=== PATIENT | male | born 1935 | race Caucasian/White ===

== ENCOUNTER → 2016-05-08 | Outpatient (CLI) | payer BC ==
[~2016-05-08] MED LIST: ASPEC325 PO; CALCTAB5 PO; CHOL100010 PO; CLC100 PO; LISI-461 PO; METO1TAB69 PO; MULT-506 PO; OMEG10007; SIMV20TA2 PO
[2016-05-08 08:27] LABS: BASO % 0.5 %; BASO ABS # 0.03 K/uL (0-0.2); COMPLETE YES; EOS % 3.5 %; HEMATOCRIT 42.1 % (42-52); IG% 0.3 %; LYMPH % 26.4 %; LYMPH ABS # 1.51 K/uL (1.2-3.4); MEAN CELL VOLUME 93.6 fL (80-100); MEAN CORPUSCULAR HEMOGLOBIN 32.2 pg (25-34); MEAN CORPUSCULAR HGB CONC 34.4 g/dl (32-36); MEAN PLATELET VOLUME 10.8 fL (7.4-10.4); MONO % 12.6 %; NEUT % 56.7 %; PLATELET COUNT 151 K/uL (130-400); WHITE BLOOD COUNT 5.73 K/uL (4.8-10.8)
[2016-05-08 08:59] LABS: ALT/SGPT 22 U/L (12-78); AST/SGOT 18 U/L (15-37); BLOOD UREA NITROGEN 19 mg/dl (7-18); BUN/CREATININE RATIO 14.6 (10-20); CALCIUM 8.9 mg/dl (8.5-10.1); CARBON DIOXIDE 31 mmol/L (21-32); CHLORIDE 105 mmol/L (98-107); CHOLESTEROL 122 mg/dl (0-200); GLUCOSE 96 mg/dl (70-99); POTASSIUM 4.3 mmol/L (3.5-5.1); SODIUM 143 mmol/L (136-145); TRIGLYCERIDES 106 mg/dl (0-150); VERY LOW DENSITY LIPOPROT CALC 21 mg/dl
[2016-05-08 09:09] LABS: ALB/GLOB RATIO 1.1 (0.9-2); ALKALINE PHOSPHATASE 54 U/L (45-117); CHOLESTEROL/HDL RATIO 3.5; HDL CHOLESTEROL 35 mg/dl; LDL CHOLESTEROL CALCULATED 66 mg/dl
== END | disposition home or self-care (01) ==
LOC: C.LAB1850 06:55
PROVIDERS: ATTEND Internal Medicine
DX: E03.9 Hypothyroidism, unspecified (principal)

== ENCOUNTER → 2016-06-18 | Outpatient (CLI) | payer BC | END | disposition home or self-care (01) | LOC: C.LAB 12:44 | PROVIDERS: ATTEND Internal Medicine | DX: E03.9 Hypothyroidism, unspecified (principal) ==

== ENCOUNTER → 2016-11-27 | Outpatient (CLI) | payer BC ==
[2016-11-27 08:14] LABS: BASO % 0.5 %; BASO ABS # 0.03 K/uL (0-0.2); COMPLETE YES; HEMATOCRIT 42.6 % (42-52); IG% 0.4 %; LYMPH % 34.4 %; LYMPH ABS # 1.96 K/uL (1.2-3.4); MEAN CELL VOLUME 94.9 fL (80-100); MEAN CORPUSCULAR HEMOGLOBIN 32.3 pg (25-34); MEAN PLATELET VOLUME 10.6 fL (7.4-10.4); MONO % 11.1 %; NEUT % 49.6 %; PLATELET COUNT 173 K/uL (130-400); RED BLOOD COUNT 4.49 M/uL (4.7-6.1)
[2016-11-27 08:43] LABS: ESTIMATED AVERAGE GLUCOSE 131 mg/dl; HA1C FLAG Normal (Normal)
[2016-11-27 08:51] LABS: ALT/SGPT 20 U/L (12-78); BLOOD UREA NITROGEN 22 mg/dl (7-18); BUN/CREATININE RATIO 18.4 (10-20); CARBON DIOXIDE 31 mmol/L (21-32); CHLORIDE 106 mmol/L (98-107); CHOLESTEROL 114 mg/dl (0-200); GLUCOSE 110 mg/dl (70-99); POTASSIUM 4.3 mmol/L (3.5-5.1); SODIUM 141 mmol/L (136-145)
[2016-11-27 08:53] LABS: ALKALINE PHOSPHATASE 50 U/L (45-117); AST/SGOT 19 U/L (15-37); CHOLESTEROL/HDL RATIO 3.5; HDL CHOLESTEROL 33 mg/dl; LDL CHOLESTEROL CALCULATED 57 mg/dl; TRIGLYCERIDES 120 mg/dl (0-150); VERY LOW DENSITY LIPOPROT CALC 24 mg/dl
--- NOTE | 2016-12-08 11:01 | CODING QUERY MEDICAL NECESSITY ---
CQSUPPORTING DIAGNOSIS NEEDED A supporting diagnosis is required for the test/procedure performed on this patient in order for us to be reimbursed by the patient's insurance. Please provide a supporting diagnosis for the following test/procedure listed below next to the test name along with your signature. *If there is no additional diagnosis for this patient that would support the following test/procedure please document that below next to the test/procedure. Test(s)/Procedure(s) that require a supporting diagnosis: DOS 11/27/16 GLYCATED HEMOGLOBIN TEST Provider Signature: Date: Thank you Caro [facility] Information Management Once completed, please kindly fax back to [phone] For questions please call [phone]
== END | disposition home or self-care (01) ==
LOC: C.LAB 06:56
PROVIDERS: ATTEND Internal Medicine
DX: D64.9 Anemia, unspecified (principal); R73.01 Impaired fasting glucose

== ENCOUNTER → 2017-06-10 | Outpatient (CLI) | payer BC ==
[~2017-06-10] MED LIST changes: +METO100T44 PO; -METO1TAB69 PO
== END | disposition home or self-care (01) ==
LOC: C.LAB 07:40
PROVIDERS: ATTEND Internal Medicine Cardiovascular Disease
DX: E78.5 Hyperlipidemia, unspecified (principal)

== ENCOUNTER 2017-08-26 13:44 | Emergency (ER) | payer BC ==
[~2017-08-26] VITALS: Ht 185.4 cm; Wt 78.6 kg
[~2017-08-26 13:44] MED LIST changes: -MULT-506 PO; -OMEG10007
[2017-08-26 13:50] VITALS: TEMP 36.3; Ht 185.4 cm; Wt 78.6 kg
--- NOTE | 2017-08-26 14:59 | EMERGENCY ROOM VISIT NOTE ---
History Report prepared by Maksim: Corinne Jacobs Under the Supervision of: Dr. David Vinson M.D. First contact with patient: 14:13 Chief Complaint: HAND PAIN/INJURY Stated Complaint: SWOLLEN LEFT HAND, REDNESS, PAIN, THUMB TWITCHING History of Present Illness The patient is an 82 year old male who presents to the Emergency Room with complaints of persistent left hand pain starting yesterday. He first noticed the swelling and redness in his left hand yesterday. He denies any fall, injury , or tick bites. He denies any chest pain, SOB, fever, joint aches, rash, or leg swelling. He is right handed. He has a history of Raynaud's and CABG x4. He denies any history of gout. He denies any history of blood clots. He is not on blood thinners. Source of History: patient, spouse/significant other Onset: yesterday Position: hand (left) Quality: other (redness, swelling) Timing: other (persistent) Associated Symptoms: No fevers, No chest pain, No SOB, No rash Review of Systems See HPI for pertinent positives & negatives. A total of 10 systems reviewed and were otherwise negative. Past Medical & Surgical Surgical Problems: (1) S/P CABG x 4 Old medical records were reviewed. Nurse's notes were reviewed and I agree with. Denies history of gout or joint disease Family History Diabetes mellitus Hypertension Social History Smoking Status: Never Smoker Marital Status: Housing Status: lives with significant other Occupation Status: retired Current/Historical Medications Scheduled B-Complex Vitamins (Vitamin B Complex), 1 TAB PO BID Cephalexin Monohydrate (Keflex), 500 MG PO BID Cholecalciferol (Vitamin D 1000 Unit), 1,000 INTER.UNIT PO BID Docusate Sodium (Docusate Sodium), 2 CAP PO QAM Fish Oil (Warren-3), 1 CAP TID Levothyroxine Sodium (Levothyroxine Sodium), 1 TAB PO DAILY Lisinopril (Zestril), 10 MG PO DAILY Metoprolol Succ (Toprol Xl) (Toprol-Xl ), 100 MG PO DAILY Multivitamin (Multivitamin), 1 TABLET PO DAILY Nitroglycerin (Nitrostat), 0.4 MG UT PRN Simvastatin (Zocor), 20 MG PO QPM Sulfa/Trimethoprim (Bactrim Ds 800MG/160MG), 1 TAB PO BID Scheduled PRN Acetaminophen (Tylenol), 1,000 MG PO Q6 PRN for Pain Allergies Coded Allergies: No Known Allergies (Verified , 12/15/10) Physical Exam Vital Signs Date Time Temp Pulse Resp B/P (MAP) Pulse Ox O2 Delivery O2 Flow Rate FiO2 08/26/17 19:23 64 20 172/89 96 Room Air 08/26/17 18:31 61 18 178/98 95 Room Air 08/26/17 16:09 65 16 178/92 96 Room Air 08/26/17 14:57 56 197/96 97 Room Air 08/26/17 13:50 36.3 67 18 198/97 100 Room Air Physical Exam General: Non-ill appearing older male in no acute distress. HEENT: Normal cephalic atraumatic. Pupils are equal round and reactive to light. Extraocular movements are intact. Oropharynx is pink with moist mucous membranes. No swelling of the mouth lips or tongue. Neck: Supple with a midline trachea. No meningeal signs or stiffness, no JVD or bruits. No Stridor. Chest: Clear to auscultation bilaterally. No wheezes or rhonchi. No increased work of breathing. Heart: regular rate and rhythm. Abdomen: Soft nontender, nondistended without rebound guarding or rigidity. Extremities: Both hands have red discoloration from baseline Raynaud's. Left is more red than the right, particularly in the wrist where he has some moderate swelling. Minimal tenderness. Difficulty with extension of the wrist. Normal movement of the hand. No calf tenderness or assymetry Spine/Back. Non tender to palpation. No CVA tenderness Skin: Good turgor without rashes. Neurologic exam: Cranial nerves two through 12 are intact. Motor and sensation are intact and symmetrical throughout. Medical Decision & Procedures ER Provider Diagnostic Interpretation: X-ray results as stated below per interpretation by me and the radiologist. Radiology results as stated below per my review and radiologist interpretation: LEFT HAND 3 VIEWS; LEFT WRIST 4 VIEWS CLINICAL HISTORY: Left wrist and hand pain. Swelling and erythema. FINDINGS: 3 views of the left hand and 4 views of the left wrist are compared to study dated 04/06/2009. The skeletal structures are osteopenic. There is no radiographic evidence of acute fracture identified in the left wrist or hand. There is calcification of the triangular fibrocartilage. Mild degenerative narrowing is seen at the radiocarpal articulation. Cystic degenerative change is seen throughout the carpal bones, greatest in the capitate and the lunate. 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 Only minimal subluxation is seen. Minimal osteoarthritic change is seen involving the first metacarpophalangeal joint and the interphalangeal joints. Soft tissue swelling is present throughout the wrist and hand. Advanced atherosclerotic calcification is seen in the regional arteries. No radiodense foreign body is seen. IMPRESSION: 1. There is no radiographic evidence of acute fracture involving the left wrist or hand. 2. Osteopenia, arthritic change, and calcification of the triangular fibrocartilage as above. 3. Diffuse soft tissue edema is present throughout the left wrist and hand. Clinical correlation will be required. Electronically signed by: Gee Dawson M.D. 08/26/2017 3:27 PM Dictated Date/Time: 08/26/2017 3:23 PM LEFT UPPER EXTREMITY VENOUS DOPPLER HISTORY: Left arm swelling. COMPARISON STUDY: None. FINDINGS: The left internal jugular vein is patent. There is normal flow within the left subclavian vein. There is normal flow and compressibility within the left axillary, basilic, brachial, radial, ulnar, and visualized cephalic veins. IMPRESSION: No DVT within the left upper extremity. Electronically signed by: Chi Cho M.D. 08/26/2017 5:14 PM Dictated Date/Time: 08/26/2017 5:14 PM Laboratory Results 08/26/17 14:38 Red Blood Count 4.50, Mean Corpuscular Volume 93.3, Mean Corpuscular Hemoglobin 32.0, Mean Corpuscular Hemoglobin Concent 34.3, Mean Platelet Volume 10.7, Neutrophils (%) (Auto) 62.5, Lymphocytes (%) (Auto) 19.8, Monocytes (%) (Auto) 16.9, Eosinophils (%) (Auto) 0.4, Basophils (%) (Auto) 0.2, Neutrophils # (Auto ) 6.04, Lymphocytes # (Auto) 1.92, Monocytes # (Auto) 1.64, Eosinophils # (Auto ) 0.04, Basophils # (Auto) 0.02 08/26/17 14:38 Test 08/26/17 14:38 08/26/17 14:46 White Blood Count 9.68 K/uL (4.8-10.8) Red Blood Count 4.50 M/uL (4.7-6.1) Hemoglobin 14.4 g/dL (14.0-18.0) Hematocrit 42.0 % (42-52) Mean Corpuscular Volume 93.3 fL (80-100) Mean Corpuscular Hemoglobin 32.0 pg (25-34) Mean Corpuscular Hemoglobin Concent 34.3 g/dl (32-36) Platelet Count 143 K/uL (130-400) Mean Platelet Volume 10.7 fL (7.4-10.4) Neutrophils (%) (Auto) 62.5 % Lymphocytes (%) (Auto) 19.8 % Monocytes (%) (Auto) 16.9 % Eosinophils (%) (Auto) 0.4 % Basophils (%) (Auto) 0.2 % Neutrophils # (Auto) 6.04 K/uL (1.4-6.5) Lymphocytes # (Auto) 1.92 K/uL (1.2-3.4) Monocytes # (Auto) 1.64 K/uL (0.11-0.59) Eosinophils # (Auto) 0.04 K/uL (0-0.5) Basophils # (Auto) 0.02 K/uL (0-0.2) RDW Standard Deviation 44.1 fL (36.4-46.3) RDW Coefficient of Variation 12.9 % (11.5-14.5) Immature Granulocyte % (Auto) 0.2 % Immature Granulocyte # (Auto) 0.02 K/uL (0.00-0.02) Erythrocyte Sedimentation Rate 37 mm/hr (0-14) Anion Gap 4.0 mmol/L (3-11) Est Creatinine Clear Calc Drug Dose 52.3 ml/min Estimated GFR () 64.2 Estimated GFR (Non- 55.4 BUN/Creatinine Ratio 17.5 (10-20) Uric Acid 4.6 mg/dl (2.6-7.2) Calcium Level 9.5 mg/dl (8.5-10.1) Total Bilirubin 0.8 mg/dl (0.2-1) Direct Bilirubin 0.2 mg/dl (0-0.2) Aspartate Amino Transf (AST/SGOT) 17 U/L (15-37) Alanine Aminotransferase (ALT/SGPT) 22 U/L (12-78) Alkaline Phosphatase 54 U/L (45-117) C-Reactive Protein 7.80 mg/dl (0-0.29) Total Protein 8.0 gm/dl (6.4-8.2) Albumin 3.9 gm/dl (3.4-5.0) Lipase 63 U/L (73-393) Lyme Disease IgG Antibody NEG (NEG) Lyme Disease IgM Antibody NEG (NEG) Bedside Lactic Acid Venous 1.39 mmol/L (0.90-1.70) Laboratory studies as stated above per my review. Medications Administered Medications (Trade) Dose Ordered Sig/Santos Route Start Time Stop Time Status Last Admin Dose Admin Ceftriaxone Sodium (Rocephin Inj) 1 gm NOW STAT IV 08/26/17 17:58 08/26/17 17:59 DC 08/26/17 18:36 1 GM Trimethoprim/ Sulfamethoxazole (Septra Ds 800/ 160MG Tab) 1 tab NOW ONCE PO 08/26/17 19:00 08/26/17 19:01 DC 08/26/17 19:16 1 TAB Trimethoprim/ Sulfamethoxazole (Sulfameth/ Trimeth Ds 800/ 160MG Home Pack) 1 homepack UD ONCE PO 08/26/17 19:00 08/26/17 19:01 DC 08/26/17 19:16 1 HOMEPACK Cephalexin Monohydrate (Keflex 500MG Home Pack) 1 homepack NOW ONCE PO 08/26/17 19:00 08/26/17 19:01 DC 08/26/17 19:16 1 HOMEPACK ED Course 1413: Past medical records reviewed. The patient was evaluated in room C6, and a complete history and physical examination were performed. 1527: I reevaluated the patient. He is doing well. He is going to [place]. 175: Rocephin Inj 1 gm IV. 1841: Upon reevaluation, the patient is resting comfortably. I discussed the results and treatment plan with him. I offered admission, but he declined as he would rather go home. He will come back tomorrow for recheck. He verbalized agreement of the treatment plan. The patient was discharged home. 1900: Keflex 500 mg 1 homepack PO, Sulfameth/Trimeth Ds 800/160 mg 1 homepack PO , Septra Ds 800/160 mg 1 tab PO. Medical Decision Differentials include, but are not limited to; infection, gout, DVT, lyme disease, trauma, electrolyte or metabolic abnormality. This patient comes in as described above. His right wrist is more swollen and warm compared to the left. He has had no injury. He is afebrile and appears nontoxic. IV access established multiple blood tests was obtained including blood cultures. His lactic acid is not elevated. He had x-rays obtained as well as ultrasound. He has no other complaints. He was reassessed frequently. He has no white count or fever to suggest infection. His sed rate and CRP are elevated however. His vital signs are stable. He has no sign of electrolyte or metabolic abnormalities. Uric acid is not elevated and would therefore go against gout but not rule it out. X-rays of the wrist and hand show soft tissue swelling but otherwise no acute abnormalities ultrasound shows no DVT. He has been cultured was given Rocephin 1 g IV. He appears to have a cellulitis does extend beyond the wrist, I think it is less likely an infection of the wrist or inflammation of the wrist. at this point, I do not think tapping the wrist is a good idea as I would have to go through the cellulitis to get into the wrist. I talked the patient and his at length about admission versus discharge. He does not want to be admitted I think it is reasonable for him to follow-up in the morning as he did receive IV antibiotics and the next dose would be tomorrow anyways. He was also given p.o. Bactrim and will be sent home with a prescription for Keflex and Bactrim which will give broad-spectrum coverage. He was encouraged to return to ER tomorrow or return sooner if: fever, increasing redness or warmth, red streaks, any new problems or concerns. I did outline the outer edge and so therefore this can be monitored for any advancement. The patient and his were happy with the plan and he was discharged to home. Medication Reconcilliation Current Medication List: was personally reviewed by me Blood Pressure Screening Patient's blood pressure: Elevated blood pressure Blood pressure disposition: Referred to PCP Impression Primary Impression: Cellulitis of left hand Scribe Attestation The scribe's documentation has been prepared under my direction and personally reviewed by me in its entirety. I confirm that the note above accurately reflects all work, treatment, procedures, and medical decision making performed by me. Departure Information Dispostion Home / Self-Care Prescriptions Cephalexin Monohydrate (Keflex) 500 Mg Cap 500 MG PO BID for 10 Days, #20 CAP Prov: David Vinson M.D. 08/26/17 Sulfa/Trimethoprim (Bactrim Ds 800MG/160MG) Tab 1 TAB PO BID, #20 TAB Prov: David Vinson M.D. 08/26/17 Referrals Ricci Turcios M.D. (PCP) Forms HOME CARE DOCUMENTATION FORM, IMPORTANT VISIT INFORMATION Patient Instructions My [facility] Additional Instructions Rest. Use splint for comfort Use Bactrim double strength twice a day for 10 days Use Keflex 500 mg twice a day for 10 days Return tomorrow for recheck Return sooner if: Fever, increasing redness, red streaks, worsening of symptoms , numbness or weakness, any new problems or concerns
[2017-08-26] MEDS ORDERED: OMEG10007 (15:06)
[2017-08-26 15:08] LABS: BASO % 0.2 %; BASO ABS # 0.02 K/uL (0-0.2); EOS % 0.4 %; EOS ABS # 0.04 K/uL (0-0.5); HEMOGLOBIN 14.4 g/dL (14.0-18.0); IG# 0.02 K/uL (0.00-0.02); LYMPH % 19.8 %; LYMPH ABS # 1.92 K/uL (1.2-3.4); MEAN CELL VOLUME 93.3 fL (80-100); MEAN CORPUSCULAR HGB CONC 34.3 g/dl (32-36); MEAN PLATELET VOLUME 10.7 fL (7.4-10.4); MONO % 16.9 %; MONO ABS # 1.64 K/uL (0.11-0.59); NEUT % 62.5 %; NEUT ABS # 6.04 K/uL (1.4-6.5); PLATELET COUNT 143 K/uL (130-400); RED CELL DISTRIBUTION WIDTH CV 12.9 % (11.5-14.5); RED CELL DISTRIBUTION WIDTH SD 44.1 fL (36.4-46.3); WHITE BLOOD COUNT 9.68 K/uL (4.8-10.8)
[2017-08-26] MEDS ORDERED: CHOL100027 PO (15:15)
[2017-08-26] MEDS ORDERED: B-COTAB18 PO (15:15)
[2017-08-26] MEDS ORDERED: DOCU100C31 PO (15:15)
[2017-08-26] MEDS ORDERED: METO100T44 PO (15:15)
[2017-08-26] MEDS ORDERED: ACET-1256 PO (15:15)
[2017-08-26] MEDS ORDERED: LEVO50TA6 PO (15:15)
[2017-08-26] MEDS ORDERED: NTRGSL/4 UT (15:15)
[2017-08-26 15:28] LABS: ALBUMIN 3.9 gm/dl (3.4-5.0); CALCIUM 9.5 mg/dl (8.5-10.1); CREATININE 1.21 mg/dl (0.60-1.40); POTASSIUM 3.6 mmol/L (3.5-5.1); URIC ACID 4.6 mg/dl (2.6-7.2)
--- NOTE | 2017-08-26 15:28 | DIAGNOSTIC IMAGING REPORT ---
LEFT HAND 3 VIEWS; LEFT WRIST 4 VIEWS CLINICAL HISTORY: Left wrist and hand pain. Swelling and erythema. FINDINGS: 3 views of the left hand and 4 views of the left wrist are compared to study dated 04/06/2009. The skeletal structures are osteopenic. There is no radiographic evidence of acute fracture identified in the left wrist or hand. There is calcification of the triangular fibrocartilage. Mild degenerative narrowing is seen at the radiocarpal articulation. Cystic degenerative change is seen throughout the carpal bones, greatest in the capitate and the lunate. 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 Only minimal subluxation is seen. Minimal osteoarthritic change is seen involving the first metacarpophalangeal joint and the interphalangeal joints. Soft tissue swelling is present throughout the wrist and hand. Advanced atherosclerotic calcification is seen in the regional arteries. No radiodense foreign body is seen. IMPRESSION: 1. There is no radiographic evidence of acute fracture involving the left wrist or hand. 2. Osteopenia, arthritic change, and calcification of the triangular fibrocartilage as above. 3. Diffuse soft tissue edema is present throughout the left wrist and hand. Clinical correlation will be required. Electronically signed by: Gee Dawson M.D. 08/26/2017 3:27 PM Dictated Date/Time: 08/26/2017 3:23 PM
[2017-08-26] MEDS ORDERED: MULT-506 PO (16:31)
--- NOTE | 2017-08-26 17:16 | DIAGNOSTIC IMAGING REPORT ---
LEFT UPPER EXTREMITY VENOUS DOPPLER HISTORY: Left arm swelling. COMPARISON STUDY: None. FINDINGS: The left internal jugular vein is patent. There is normal flow within the left subclavian vein. There is normal flow and compressibility within the left axillary, basilic, brachial, radial, ulnar, and visualized cephalic veins. IMPRESSION: No DVT within the left upper extremity. Electronically signed by: Chi Cho M.D. 08/26/2017 5:14 PM Dictated Date/Time: 08/26/2017 5:14 PM
[2017-08-26] MEDS ORDERED: CEFTRIAXONE SOD INJ 1 GM ADDVIAL IV STA (17:58)
[2017-08-26] MEDS ORDERED: SULF800T23 PO (18:56)
[2017-08-26] MEDS ORDERED: CEPH500C PO (18:56)
[2017-08-26] MEDS ORDERED: CEPHALEXIN 500MG HOME PACK 1 EA BTL PO ONE (19:00)
[2017-08-26] MEDS ORDERED: SULFAMETHOXAZOLE/TRIMETHOPRIM DS 800/160MG TAB PO ONE (19:00)
[2017-08-26] MEDS ORDERED: SEPTRA DS HOME PACK 1 EA VIAL PO ONE (19:00)
[2017-08-26 19:23] VITALS: BP 172/89; PULSE 64; O2SAT 96
== END 2017-08-26 19:28 | disposition home or self-care (01) ==
LOC: C.EDB 13:45 → C.EDC 19:28
DX: L03.114 Cellulitis of left upper limb (principal)

== ENCOUNTER 2017-08-27 15:55 | Emergency (ER) | payer BC ==
[~2017-08-27] VITALS: Ht 182.9 cm; Wt 64.2 kg
[~2017-08-27 15:55] MED LIST changes: +ACET-1256 PO; +B-COTAB18 PO; +CEPH500C PO; +CHOL100027 PO; +DOCU100C31 PO; +LEVO50TA6 PO; +MULT-506 PO; +NTRGSL/4 UT; +OMEG10007; +SULF800T23 PO
[2017-08-27 15:58] VITALS: Ht 182.9 cm; Wt 64.2 kg
[2017-08-27] MEDS ORDERED: CEFTRIAXONE SOD INJ 1 GM ADDVIAL IV STA (16:11)
--- NOTE | 2017-08-27 16:27 | EMERGENCY ROOM VISIT NOTE ---
History First contact with patient: 16:02 Chief Complaint: WOUND RECHECK Stated Complaint: FOLLOW UP TO SWOLLEN WRIST TREATMENT YESTERDAY Nursing Triage Summary: left hand erythema/edema History of Present Illness The patient is a 82 year old male who presents to the Emergency Room for recheck of left hand cellulitis after being evaluated in our emergency department yesterday. He was seen by Dr. Vinson, was administered IV Rocephin and treated with outpatient prescriptions for Keflex and Bactrim DS antibiotics. The patient has been tolerating the antibiotics well. The patient reports that although the redness did extend a little bit beyond the marker was placed on the hand, he reports significant improvement in pain and movement of the left thumb. He denies any fevers or chills, red streaks or upper arm pain. He rates his discomfort a 2 out of 10 at its worst. Review of Systems 10 system review was performed and was negative except for pertinent positives and negatives as indicated in history of present illness Past Medical/Surgical History Surgical Problems: (1) S/P CABG x 4 Family History Diabetes mellitus Hypertension Social History Smoking Status: Never Smoker Marital Status: Housing Status: lives with significant other Occupation Status: retired Current/Historical Medications Scheduled B-Complex Vitamins (Vitamin B Complex), 1 TAB PO BID Cephalexin Monohydrate (Keflex), 500 MG PO BID Cholecalciferol (Vitamin D 1000 Unit), 1,000 INTER.UNIT PO BID Docusate Sodium (Docusate Sodium), 2 CAP PO QAM Fish Oil (Mineral-3), 1 CAP TID Levothyroxine Sodium (Levothyroxine Sodium), 1 TAB PO DAILY Lisinopril (Zestril), 10 MG PO DAILY Metoprolol Succ (Toprol Xl) (Toprol-Xl ), 100 MG PO DAILY Multivitamin (Multivitamin), 1 TABLET PO DAILY Nitroglycerin (Nitrostat), 0.4 MG UT PRN Simvastatin (Zocor), 20 MG PO QPM Sulfa/Trimethoprim (Bactrim Ds 800MG/160MG), 1 TAB PO BID Scheduled PRN Acetaminophen (Tylenol), 1,000 MG PO Q6 PRN for Pain Physical Exam Vital Signs Date Time Temp Pulse Resp B/P (MAP) Pulse Ox O2 Delivery O2 Flow Rate FiO2 08/27/17 15:58 36.7 67 18 149/87 99 Room Air Physical Exam CONSTITUTIONAL: Healthy and well nourished. Patient does not appear in any acute distress. HEENT: Normocephalic, atraumatic. Pupils equal, round and reactive. NECK: Full active range of motion without discomfort. RESPIRATORY: Clear to auscultation bilaterally with no wheezing, crackles, rhonchi or stridor. CARDIOVASCULAR: Regular rate and rhythm with no murmurs, rubs or gallops. MUSCULOSKELETAL: Examination of the left hand shows notable edema, although the patient reports that the swelling has gone down significantly. He now is able to flex and extend the thumb without discomfort. The erythema has slightly extended past proximal margins. The patient has no significant worsening pain with flexion or extension of the fingers or wrist. No proximal lymphangitic streaking. Capillary refill of the fingers is less than 2 seconds. INTEGUMENTARY: No rash or other significant dermatologic conditions noted. NEUROLOGIC: Left hand and fingers are sensory intact. Medical Decision & Procedures ED Course Patient history and physical exam were performed. Nurse's notes were reviewed. Vital signs were reviewed and were normal. I did review documentation from his visit yesterday. The patient had normal x-rays and ultrasound studies. The patient was administered IV Rocephin, and treated with Keflex and Bactrim DS antibiotics. The patient appears to have improvement of his current cellulitis. I did suggest administering an additional dose of Rocephin 1 g IV, and the patient will return in 48 hours for recheck, sooner with any progressively worsening infection. The patient and were happy with this plan of care, and the patient denied any discomfort at the time of discharge. The patient was instructed to continue with his current antibiotic regimen. I also encouraged him to elevate the hand and apply ice as needed for additional swelling relief. Medical Decision Medication Reconcilliation Current Medication List: was personally reviewed by me Blood Pressure Screening Patient's blood pressure: Normal blood pressure Impression Primary Impression: Cellulitis of left hand Departure Information Dispostion Home / Self-Care Forms HOME CARE DOCUMENTATION FORM, IMPORTANT VISIT INFORMATION Patient Instructions My [facility] Additional Instructions Continue with your Keflex and Bactrim DS antibiotics as previously prescribed. Try to keep hand elevated above the heart for swelling. Intermittently apply ice as needed for additional swelling relief. Return on Tuesday between 11 AM and 9 PM to be rechecked by Cristian Benson PA-C. Return to the emergency department sooner for any progressively worsening pain, swelling, red streaks or fever.
[2017-08-27 16:38] VITALS: BP 149/87; PULSE 67; TEMP 36.7; O2SAT 99
== END 2017-08-27 16:38 | disposition home or self-care (01) ==
LOC: C.EDB 15:56 → C.EDD 16:38
DX: L03.114 Cellulitis of left upper limb (principal)

== ENCOUNTER 2018-10-03 13:16 | Observation (INO) ==
[~2018-10-03 13:16] MED LIST changes: -ACET-1256 PO; -ASPEC325 PO; -B-COTAB18 PO; -CALCTAB5 PO; +CEFAZOLIN 1000MG 1,000 MG/7.5 ML SYR IV SCH; -CEPH500C PO; -CHOL100010 PO; -CHOL100027 PO; -CLC100 PO; -DOCU100C31 PO; -LEVO50TA6 PO; -LISI-461 PO; -METO100T44 PO; -MULT-506 PO; -NTRGSL/4 UT; -OMEG10007; -SIMV20TA2 PO; -SULF800T23 PO
[2018-10-03] MEDS ORDERED: fentaNYL citrate 100 MCG/2 ML VIAL ONE (13:59)
[2018-10-03] MEDS ORDERED: BACITRACIN OINT 0.9 GM PKT ONE (14:00)
[2018-10-03] MEDS ORDERED: LIDOCAINE HCL 1% 20 ML VIAL ONE (14:00)
[2018-10-03] MEDS ORDERED: MIDAZOLAM HCL 5 MG/ML 1 ML VIAL ONE (14:00)
[2018-10-03] MEDS ORDERED: BACITRACIN INJ 50,000 UNIT VIAL ONE (14:00)
[2018-10-03] MEDS ORDERED: CEFAZOLIN 1,000 MG/7.5 ML IV PUSH IV ONE (14:32)
--- NOTE | 2018-10-03 14:36 | History & Physical Bridge Note ---
Date of Service October 03, 2018 History & Physical Bridge Note I have examined the patient, reviewed the History & Physical and in the interval since the performance of the History & Physical I have noted the following changes of clinical significance: no changes noted. I reviewed the indications, procedure, risks and alternatives with the patient and his daughter and they understand and he agrees to proceed. Consent obtained. I also discussed sedation with them, they understand and he agrees. Consent obtained.
--- NOTE | 2018-10-03 14:38 | Pre Anesthesia Assessment ---
Date of Service October 03, 2018 Pre Sedation Assessment Vital Signs Temp Pulse Resp BP Pulse Ox 10/03/18 13:57 157/78 H 10/03/18 13:45 36.7 C 70 18 190/92 H 98 Cardiovascular + bradycardic and + irregularly irregular Respiratory normal respiratory effort, lungs clear to auscultation Pre-Sedation Airway Assessment Smoking Status: Never smoker Hx Sleep Apnea: No Hx Difficult Intubation: No Short, Thick Neck: No Thyromental Distance: > or= 3.5 Finger Breadths Mallampati Class: II ASA II NPO Status Date of Last Intake of Fluids: 10/02/18 Date of Last Intake of Solid Food: 10/02/18 Procedure Planning Contraindications for Sedation: none Current Medications Reviewed: Yes Notes The planned sedation has been discussed with the patient. Informed Consent was obtained. I have identified the patient, determined the appropriateness of sedation and have assessed the patient immediately prior to the procedure. All medicine(s) and interventions are by my order.
--- NOTE | 2018-10-03 16:06 | Operative Report ---
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 The left prepectoral region was anesthetized with 1% lidocaine local anesthetic and left axillary venipuncture was performed by percutaneous technique and a guidewire placed through the left subclavian vein into the superior vena cava. The area was further infiltrated with 1% lidocaine local anesthetic and a 5 cm incision was made parallel to the left clavicle and 2 cm below it and carried down to the anterior pectoralis fascia. A pacemaker pocket was formed by blunt dissection anterior to the pectoralis fascia and a bacitracin-soaked sponge (50,000 units in 50 cc normal saline solution) was placed in the pocket. An 8 [place] [employer] lead introducer was placed over the guidewire into the left subclavian vein, the dilator and guidewire were removed and a bipolar active fixation steroid tipped ventricular lead was advanced through the introducer into the superior vena cava. A guidewire was placed through the introducer and the introducer was stripped from the lead and guidewire. Another 8 [place] [employer] lead introducer was placed over the guidewire into the left subclavian vein, the dilator and guidewire were removed and a bipolar active fixation steroid tipped atrial lead was advanced through the introducer into the superior vena cava. A guidewire was placed back through the introducer and the introducer was stripped from the lead and guidewire. Using a curved stylette the ventricular lead was advanced through the right ventricular outflow tract into the pulmonary artery and then using a straight stylette was positioned in the right ventricular apex. The screw was extended fixing the lead in position. Pacing and sensing thresholds were evaluated in bipolar configuration and are recorded on the implant data sheet. Using a curved stylette the atrial lead was positioned in the region of the atrial appendage and the screw extended fixing the lead in position. Pacing and sensing thresholds were evaluated in bipolar configuration and are recorded on the impl ant data sheet. Several different positions were tested before leaving lead in final position. Once the leads were in position they were attached to the anterior pectoralis fascia using 2 sutures of 2-0 silk around each lead collar. The bacitracin- soaked sponge was removed from the pocket, hemostasis was obtained, the pacemaker was attached to the leads and placed in the pocket with the leads co iled beneath it. The incision was closed with a running double subcutaneous closure of 3-0 Vicryl absorbable suture, followed by running subcuticular skin closure of 4-0 Vicryl absorbable suture. Bacitracin ointment was placed on the incision and a pressure dressing applied. I attest to the content of the Intraoperative Record and any orders documented therein. Any exceptions are noted below.
[2018-10-03] MEDS ORDERED: KETOROLAC TROMETHAMINE 10 MG TABLET PO PRN (16:11)
[2018-10-03] MEDS ORDERED: ACETAMINOPHEN 325 MG TAB PO PRN (16:11)
[2018-10-03] MEDS ORDERED: NITROGLYCERIN SL 0.4 MG/TAB TAB SL PRN (16:13)
--- NOTE | 2018-10-03 16:15 | Post Anesthesia Assessment ---
Date of Service October 03, 2018 Post Sedation Assessment Vital Signs Temp Pulse Resp BP Pulse Ox 10/03/18 13:57 157/78 H 10/03/18 13:45 36.7 C 70 18 190/92 H 98 Recovery Score Activity: Moves 4 extremities Respiration: Deep Breath/Cough Circulation: +/-20% PreAnes Value Consciousness: Fully Awake Oxygen Saturation: > 92% On Room Air Discharge Sedation Level of Care: Fast Track Phase II Post Sedation Plan On clinical assessment, the patient appears to have tolerated the sedation without complications. Patient is recovering as anticipated. Patient will continue to be monitored by nursing and may be discharged when sedation discharge criteria are met per below protocol. Upon Completions of procedure and additional 15 minutes continue every 5 minute vital signs and the P.A.R. score; then discharge to a Phase I or Fast Track to Phase II per the following guidelines: * Discharge Patient to appropriate Phase II area if PAR is 8 or greater or return to pre- procedure baseline. The post - procedure orders will be as directed. * If PAR score is less than 8 or not return to pre-procedure baseline then patient will follow Phase I monitoring till PAR is reached for Phase II. The Phase I may be done in procedure room or may call to secure a Phase I area. * If naloxone or flumazenil are used for reversal, hold in Phase I for continued monitoring from when last reversal dose was given for a minimum of 60 minutes or longer pending the nurse and/or physician discretion of patient condition before discharge to Phase II. Please call the Sedation Physician to re-evaluate and complete post-note for discharge to Phase II area. Do NOT discharge from procedure sedation or Phase 1 until post- sedation evaluation note is complete by procedure /sedation MD Sedation Discharge Instructions to be given to the patient at discharge to home.
[2018-10-03] MEDS ORDERED: DOCUSATE SODIUM 100 MG CAP PO SCH (21:00)
[2018-10-04] MEDS ORDERED: LR 15ML/HR IV SCH (06:00)
[2018-10-04] MEDS ORDERED: LEVOTHYROXINE SODIUM 50 MCG TABLET PO SCH (06:30)
--- NOTE | 2018-10-04 07:41 | XRay Report ---
XR chest 2V routine HISTORY: Pacemaker placement. EXACT TIME ORDERED Evaluate for pneumothorax and l COMPARISON: Chest 10/24/2007. FINDINGS: There has been interval placement of a left-sided dual-chamber pacemaker. The leads appear intact. No pneumothorax. No pleural effusions. The heart remains mildly enlarged. No focal lung conso lidations to suggest pneumonia. No evidence for pulmonary edema. IMPRESSION: Interval placement of a left-sided dual-chamber pacemaker. No pneumothorax. Electronically signed by: Chi Cho M.D. 10/04/2018 7:40 AM
[2018-10-04] MEDS ORDERED: ASPIRIN 325 MG ECTAB PO SCH (09:00)
[2018-10-04] MEDS ORDERED: MULTIVITAMIN TAB PO SCH (09:00)
[2018-10-04] MEDS ORDERED: CHOLECALCIFEROL 1,000 UNITS TAB PO SCH (09:00)
[2018-10-04] MEDS ORDERED: VITAMIN B COMPLEX TAB PO SCH (09:00)
[2018-10-04] MEDS ORDERED: OMEGA-3 (PURIFIED FISH OIL) 1 GM CAP PO SCH (09:00)
[2018-10-04] MEDS ORDERED: SIMVASTATIN 20 MG TAB PO SCH (09:00)
[2018-10-04] MEDS ORDERED: LISINOPRIL 40 MG TAB PO SCH (09:00)
[2018-10-04] MEDS ORDERED: [UNRECOGNIZED DRUG - OTHER] PO SCH (09:00)
--- NOTE | 2018-10-04 09:17 | Cardiology Progress Note ---
Date of Service October 04, 2018 Assessment & Plan (1) Postsurgical cardiac pacemaker in situ: He is doing well postop day #1. The pacer is working well, the site looks good and the x-ray looks good. He is stable for discharge. Office follow-up on Tuesday. (2) Hypertension: Hypertension has been present for many years, we had decreased his beta- geri due to bradycardia prior to pacemaker implantation. I am going to resume metoprolol succinate 50 mg daily, if he is still hypertensive at his 1 month follow-up we will probably want to increase him back to his outpatient dose of 100 mg daily. In part he is on a beta-geri due to coronary artery disease. Subjective He seems to feel well, minimal incisional discomfort Physical Exam Physical Exam: Very slight bleeding from the site on the dressing, on removing the dressing the site is clean and dry. Minor ecchymosis, no swelling. Results & Data Vital Signs (Past 12 Hours) Vital Signs Temp Pulse Pulse Pulse Resp BP Pulse Ox 10/04/18 07:03 36.9 C 64 16 162/92 H 98 10/04/18 03:27 36.5 C 63 16 151/88 H 97 10/04/18 01:01 61 10/03/18 23:58 36.6 C 64 17 157/86 H 97 Diagnostic Findings Telemetry: Normal pacer function with ventricular pacing Pacemaker evaluation: Good function with appropriate measurements Chest x-ray: Good lead position, no pneumothorax
--- NOTE | 2018-10-16 08:20 | Discharge Summary ---
Date of Service October 16, 2018 Admission HPI Per Admitting Provider This is an 83-year-old male who has a history of hypertension, hypercholesterolemia, coronary disease including bypass surgery. He has been having slow heart rate starting around August 2016, on Holter monitoring he had a heart rate as low as 25 bpm and pauses of up to 3.2 seconds. This is predominantly Mobitz 1 second-degree AV block, although he had periods of 2-1 AV block and complete heart block. In the office at rest his heart was 38 bpm. This is been discontinuation of AV phu blocking medications. He is therefore admitted for pacemaker implantation. Admission Exam (Per Admitting) Constitutional well developed and well nourished [facility] Mallampati Class: II Neck normal visual inspection Respiratory normal respiratory effort, lungs clear to auscultation Cardiovascular Rate/Rhythm: + bradycardic and + irregularly irregular Gastrointestinal (Abdomen) normal bowel sounds, soft, nontender, no hepatosplenomegaly Discharge Data Procedures Performed Operation Date: 10/03/18 15:00 Actual Procedures p Pacer with A/V Leads (Dual) - Juan Zabala MD Hospital Course (1) Postsurgical cardiac pacemaker in situ: He had no difficulty during surgery and it was doing well postop day #1. The pacer is working well, the site looks good and the x-ray looks good. He was stable for discharge. Office follow-up in 2 days. (2) Hypertension: Hypertension has been present for many years, we had decreased his beta- geri due to bradycardia prior to pacemaker implantation. I did resume metoprolol succinate 50 mg daily, if he is still hypertensive at his 1 month follow-up we will probably want to increase him back to his outpatient dose of 100 mg daily. In part he is on a beta-geri due to coronary artery disease.
== END 2018-10-04 10:45 | disposition home or self-care (01) ==
LOC: 2S 13:16 → ASU 13:16
DX: I25.2 Old myocardial infarction; Z82.49 Family history of ischemic heart disease and other diseases of the circulatory system; E03.9 Hypothyroidism, unspecified; I44.1 Atrioventricular block, second degree; R00.1 Bradycardia, unspecified; Z79.82 Long term (current) use of aspirin; Z79.899 Other long term (current) drug therapy; E78.5 Hyperlipidemia, unspecified; Z95.1 Presence of aortocoronary bypass graft; I25.10 Atherosclerotic heart disease of native coronary artery without angina pectoris; I10 Essential (primary) hypertension

== ENCOUNTER 2021-07-25 09:54 | Inpatient (IN) ==
[2021-07-25] MEDS ORDERED: SODIUM CHLORIDE 0.9% 500 ML IV SCH (10:30)
--- NOTE | 2021-07-25 10:32 | Emergency Department Note ---
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 tab PO DAILY RF: 0 omega [id number]-fish oil [Fish Oil] 1,000 mg (120 mg-180 mg) Capsule 3 cap PO QAM RF: 0 aspirin 325 mg tablet 650 mg PO QAM RF: 0 vitamin B complex Capsule 1 cap PO QAM RF: 0 chlorpheniramine maleate 4 mg Tablet 4 mg PO DAILY PRN (Reason: Allergy Symptoms) RF: 0 Colace 50 mg Capsule 50 mg PO DAILY RF: 0 quetiapine [Seroquel] 100 mg Tablet 100 mg PO DAILY RF: 0 divalproex 125 mg capsule, delayed rel sprinkle 250 mg PO BID RF: 0 escitalopram oxalate 10 mg tablet 10 mg PO DAILY RF: 0 Saccharomyces boulardii 250 mg Capsule 0 mg PO DAILY RF: 0 quetiapine 50 mg tablet 50 mg PO BID RF: 0 levothyroxine 50 mcg tablet 50 mcg PO DAILYBB RF: 0 Referrals Referrals: Ricci Turcios MD [Family Provider] -
[2021-07-25] MEDS ORDERED: LORazepam 2 MG/1 ML VIAL IV STA (10:39)
[2021-07-25 10:50] LABS: Basophils # (auto) 0.03 K/uL (0-0.2); Basophils % (auto) 0.4 %; Eosinophils # (auto) 0.16 K/uL (0-0.5); Hematocrit (blood only) 35.5 % (42-52); Hemoglobin 11.9 g/dL (14.0-18.0); Immature Granulocytes # (auto) 0.03 K/uL (0.00-0.02); Immature Granulocytes % (auto) 0.4 %; Lymphocytes # (auto) 2.49 K/uL (1.2-3.4); Lymphocytes % (auto) 30.9 %; Mean Corpuscular Hemoglobin 32.9 pg (25-34); Mean Corpuscular Hgb Conc 33.5 g/dL (32-36); Mean Corpuscular Volume 98.1 fL (80-100); Mean Platelet Volume 10.9 fL (7.4-10.4); Monocytes # (auto) 0.83 K/uL (0.11-0.59); Monocytes % (auto) 10.3 %; Neutrophils # (auto) 4.53 K/uL (1.4-6.5); Platelet Count 170 K/uL (130-400); RDW Coefficient of Variation 13.3 % (11.5-14.5); RDW Standard Deviation 47.9 fL (36.4-46.3); Red Blood Count 3.62 M/uL (4.7-6.1); White Blood Count 8.07 K/uL (4.8-10.8)
--- NOTE | 2021-07-25 10:58 | XRay Report ---
XR chest 1V portable CLINICAL HISTORY: weakness COMPARISON STUDY: Chest radiograph October 04, 2018. FINDINGS: A left subclavian pacer and median sternotomy are noted. Note is made of cardiomegaly. No e vidence for pulmonary edema. Multiple old right rib fractures are present. Lungs are diminished. No l obar consolidation. No pneumothorax or pleural effusion. IMPRESSION: 1. Low lung volumes. No acute findings. 2. Cardiomegaly. No evidence for pulmonary edema. ACT 112: Negative or not required by law. Electronically signed by: Bay Moctezuma M.D. 07/25/2021 10:56 AM
[2021-07-25 11:05] LABS: Albumin Globulin Ratio 1.2 (0.9-2); Albumin Level 3.6 gm/dl (3.4-5.0); BUN Creatinine Ratio 25.9 (10-20); Bilirubin,Total 0.7 mg/dl (0.2-1.0); Creatinine Clr Calc Pharmacy 34.9 ml/min; Est GFR (African American) 43.9 ml/min; Est GFR (Non-African American) 37.9 ml/min; Globulin 3.1 gm/dl (2.5-4.0); Potassium 4.6 mmol/L (3.5-5.1); Total Protein 6.7 gm/dl (6.0-8.3)
--- NOTE | 2021-07-25 11:13 | CT Scan Report ---
CT OF THE HEAD WITHOUT CONTRAST CLINICAL HISTORY: Altered mental status. Hypotension. COMPARISON STUDY: Head CT December 15, 2010. MRI of the brain January 01, 2021. TECHNIQUE: Helical axial images of the head were obtained without IV contrast. Automated exposure con trol was utilized for the study. A dose lowering technique was utilized adhering to the principles o f ALARA. FINDINGS: This study is mildly compromised by motion artifact. Cerebral atrophy is again noted which accounts for ventricular dilatation. No acute intracranial hemorrhage, midline shift or mass effect i s present. The ventricular system is stable. The basal cisterns are patent. No extra-axial collection s are present. There are no findings to suggest acute dural sinus thrombosis or acute territorial inf arct. No significant calvarial abnormalities are present.. Fluid within the bilateral mastoid air xavier ls. IMPRESSION: No acute intracranial findings. No change in appearance of the brain. Cerebral atrophy. ACT 112: Negative or not required by law. Electronically signed by: Bay Moctezuma M.D. 07/25/2021 11:11 AM
[2021-07-25 11:16] LABS: INR 1.2 (0.9-1.1); Partial Thromboplastin Ratio 0.9; Partial Thromboplastin Time 25.1 Seconds (21.0-31.0); Prothrombin Time 12.3 Seconds (9.0-12.0)
--- NOTE | 2021-07-25 11:30 | CT Scan Report ---
CT OF THE ABDOMEN AND PELVIS WITHOUT CONTRAST CLINICAL HISTORY: Altered mental status. COMPARISON STUDY: [facility] March 10, 2021. CT of the abdomen and pelvis August 01, 2020. TECHNIQUE: Axial images of the abdomen and pelvis were obtained without IV contrast. Images were revi ewed in the axial, sagittal, and coronal planes. Automated exposure control was utilized for the parrish dy. A dose lowering technique was utilized adhering to the principles of ALARA. FINDINGS: A few densities within the left lower lobe are unchanged from earlier exams. These are like ly benign. There is a small hiatal hernia. Cardiomegaly is noted. Pacer leads are partially imaged. T his exam is compromised by lack of contrast and motion artifact. A 1.2 cm right renal pelvis calculus is noted. There is mild right collecting system dilatation. There are no ureteral calculi. Small ariel cifications within left renal sinus could reflect small renal calculi or vascular calcifications. [place] er attenuation lesions within the lower pole of the left kidney and upper pole of the right kidney fa vor cysts. Unenhanced images of the liver, spleen, adrenal glands and pancreas are unremarkable. No b iliary or pancreatic ductal dilatation is present. No evidence for a bowel obstruction. Probable visu alization of the appendix is noted. The appendix is normal. Moderate amount of stool within the colon is present. There is no lymphadenopathy or ascites. No fluid collection to suggest an abscess. No ac arabella fracture or suspicious lesion within the visualized skeletal structures. IMPRESSION: 1. 1.2 cm right renal pelvis calculus. This is likely minimally obstructing given mild right collecti ng system dilatation. 2. No bowel obstruction. No definite bowel wall thickening. Moderate amount of stool within the colon . 3. Exam compromised given motion artifact and lack of IV contrast. ACT 112: Negative or not required by law. Electronically signed by: Bay Moctezuma M.D. 07/25/2021 11:28 AM
[2021-07-25] MEDS ORDERED: SODIUM CHLORIDE 0.9% 1000ML 500 ML IV ONE ×3 (11:44→14:31)
[2021-07-25 12:50] LABS: Appearance Urine Clear (Clear); Bacteria Urine Automated Negative (Negative); Bilirubin Urine Negative (Negative); Blood Urine Negative (Negative); Color Urine Dark Yellow; Glucose Urine UA Negative (Negative); Ketones Urine 1+ (Negative); Leukocyte Esterase Urine Negative (Negative); Nitrite Urine Negative (Negative); Protein Urine Trace (Negative); RBC Urine Automated 0-4 /hpf (0-4); Specific Gravity Urine 1.025 (1.000-1.030); Urobilinogen Urine Positive (Negative); pH Urine 6.5 (4.5-7.5)
[2021-07-25] MEDS ORDERED: PIPERACILL/TAZOBAC CONSULT ACTIVE PRN (13:03)
[2021-07-25] MEDS ORDERED: PIPERACILLIN/TAZOBACTAM 4.5 GM/120 ML BAG IV ONE (13:03)
--- NOTE | 2021-07-25 14:38 | History & Physical Report ---
Date of Service July 25, 2021 Assessment & Plan (1) Hypotension: Plan: Presented with hypotension. Review of meds, new rx for HCTZ 25mg daily and has been taking since Tuesday with worsening PO intake and dehydration per during visits at [facility]. BPs at [facility] 90/54, pulse ox 90% CT head without acute CVA CXR without pneumonia CTAP without acute process but does note 1.2 cm R renal pelvis calculi --> UA without evidence for infection. (known stone) Also presented with LIAT, Cr up to 1.6 (BUN 42) with baseline closer to 1.2-1.3 1.5L NSS in ER thus far, additional 500cc bolus infusing currently AVOID further HCTZ, would discontinue at discharge. Encourage low salt diet/compression stockings as able to tolerate for minimal LE pedal edema as reported by for reasoning to start such BP improved to 128/74 after 1.5 L, 500cc bolus infusing now for BP 99/58 --> Start NSS @ 100cc/hr Hold lisinopril, metoprolol for AM Seroquel could also be contributing but has kept mood stable and has been on this medication since May (100 + 50 + 50mg daily) TSH wnl Cortisol pending --> wnl 15.4 EKG pending -- Trop 19.8 high sensitivity, will repeat for completeness procal added Got dose of Zosyn in ER, will not continue given WBC wnl, no fever and no infectious source on imaging/examination and suspect 2nd to medications Blood cultures obtained in ER -- monitor Monitor overnight but hopeful to return to [facility] per as soon as medically stable (2) Dehydration: Plan: 2nd to poor PO intake over past week/HCTZ use IVF ordered Monitor (3) CAD (coronary artery disease): Plan: hx CAD, s/p CABG x 4 in 2019 EKG pending but denied CP. Trop 19, repeat pending Typically on metoprolol, lisinopril but will hold these due to hypotension and resume when able/Cr improved Follows locally with Dr Fregoso/Dr Zabala (4) Hypertension: Plan: Now with hypotension as above Holding BP medications Monitor (5) Dyslipidemia: Plan: continue statin (6) Acute kidney injury: Plan: acute kidney injury on CKD Cr 1.62 on admission with baseline closer to 1.2-1.3 Hold lisinopril, would pepe d/c HCTZ IVF ordered BMP in AM (7) CKD (chronic kidney disease), stage III: Plan: liat on ckd on admission (8) History of coronary artery bypass graft: Plan: noted, 2019. see CAD (9) Pacemaker: Plan: 2nd to heart block follows with Dr Zabala will place order for pacer interrogation (10) Hypothyroidism: Plan: TSH wnl continue home levothyroxine 50mcg daily (11) Dementia: Plan: from [facility] Memory unit Continues on lexaprol, seroquel, depakote BID --> Takes 100mg seroquel in AM, 50mg around lunch, and 50mg before bed. Could also be contributing but has been on this dosing since May without issue and will continue Did get dose of Ativan x 1 in ER, would avoid further dosing if possible in elderly patinet with dementia TSH wnl Will check B12 for completeness given borderline MCV Plan: observation overnight, possible d/c in AM pending History of Present Illness Chief Complaint: hypotension, unresponsive Primary Care Provider: [facility], [place] 86yo male with PMHx significant for CAD (s/p CABG x 4 2001), heart block s/p pacemaker, HTN, HLD, Hypothyroidism, CKD, Raynauds, hx nephrolithiasis, and Alzheimer's dementia requiring placement in Dementia Unit at [facility] presented to the ER after he was found to be difficult to arouse when they went to wake him up today and was noted to have low blood pressure and low oxygen saturation by staff. Saturation listed at 90% on paperwork, BPs systolic in the 90s. Upon arrival to ER was agitated and swinging at staff. Per significant other, this does occur when he has infections. No known fevers reported prior to admission. Of note, no recent office visits from cardiology, however appears per as she states patient recently started on a water pill. Per review of recent medications sent, HCTZ 25mg appears on list, and could be contributing. Per , she states Dr Fregoso called this in due to LE swelling (since resolved but endorse patient sits with legs dependent and could rec stockings). She picked up the medication on Tuesday and patient started it on Tuesday and she has been visiting him at [facility] daily and noticed he looked more dehydrated and hadn't really been eating/drinking very much. She notes he does also take lisinopril 40mg daily, metoprolol 100mg for his CAD. She states in regards to the Seroquel, his mood worsened once moved to [facility] in May and his medication were increased and has been stable on 100mg in the morning, 50mg around lunch, and 50mg at bedtime in addition to 10mg lexaprol and depakote 250mg BID. They do have known history of R kidney stone, she states approx 10mm in size and monitors with Urology. No issues on imaging and UA without infection. She does endorse he has issues with constipation and they have been giving colace at group home. No issues with eating/swallowing at baseline. Discussed likely hypotension due to medications and will not continue abx at this time and monitor overnight, hydrate and evaluate/monitor with hopes of getting patient back to [facility] as soon as possible. agreeable to plan. Patient just got dose of Ativan and resting comfortable but had been agitated and hitting/swinging at staff. Resting comfortably and opens eyes/smiles but unable to participate in comprehensive ROS/exam. Nofever, chills, chest pain, shortness of breath, abdominal pain, nausea or vomiting reported. POLST on chart. NOT DNR. ER Course: 1.5L NSS, Ativan, Blood cultures, Zosyn x 1 No fever. WBC 8k, hgb 11.9, MCV 98.1, INR 1.2. Na 138, K 4.6. BUN 42, Cr 1.62 Allergies Allergy/AdvReac Type Severity Reaction Status Date / Time No Known Allergies Allergy Verified 07/25/21 12:18 Home Medications Medication Instructions Recorded Confirmed Type omega 4-prw-nre-fish oil 1,000 mg 3 cap PO QAM 01/12/18 07/25/21 History (120 mg-180 mg) capsule (Fish Oil) aspirin 325 mg tablet 650 mg PO QAM tab 09/26/18 07/25/21 History cholecalciferol (vitamin D3) 50 2,000 units PO QAM 09/26/18 07/25/21 History mcg (2,000 unit) capsule vitamin B complex 1 cap PO QAM 03/23/19 07/25/21 History lisinopril 40 mg tablet 40 mg PO QAM #90 tab 06/04/20 07/25/21 Rx nitroglycerin 0.4 mg sublingual 0.4 mg SL .COMPLEX PRN #25 tab 10/20/20 07/25/21 Rx tablet finasteride 5 mg tablet 5 mg PO DAILY #90 tab 03/12/21 07/25/21 Rx simvastatin 20 mg tablet 20 mg PO QPM #90 tab 04/13/21 07/25/21 Rx tofwarun-xru-mhhdo acid 300 1 tab PO DAILY 05/05/21 07/25/21 History mcg-lycopene 600 mcg-lutein 300 mcg tablet (Centrum Silver Men) metoprolol succinate 100 mg 100 mg PO QAM #90 tab 06/09/21 07/25/21 Rx tablet,extended release 24 hr Saccharomyces boulardii 250 mg 0 mg PO DAILY 07/25/21 07/25/21 History capsule chlorpheniramine maleate 4 mg 4 mg PO DAILY PRN 07/25/21 07/25/21 History tablet divalproex 125 mg capsule,delayed 250 mg PO BID 07/25/21 07/25/21 History release sprinkle docusate sodium 50 mg capsule 50 mg PO DAILY 07/25/21 07/25/21 History escitalopram oxalate 10 mg tablet 10 mg PO DAILY 07/25/21 07/25/21 History levothyroxine 50 mcg tablet 50 mcg PO DAILYBB 07/25/21 07/25/21 History quetiapine 100 mg tablet (Seroquel) 100 mg PO DAILY 07/25/21 07/25/21 History quetiapine 50 mg tablet 50 mg PO BID 07/25/21 07/25/21 History 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 CAD (coronary artery disease) Cellulitis of left hand CKD (chronic kidney disease), stage III Cognitive change Encounter for pre-operative examination Hyperlipidemia Hypertension Hypothyroidism Kidney stone Kyphoscoliosis Multiple pulmonary nodules found on xray and no problems just watch Pacemaker 10/2018 -- [employer] follows dr zabala last check - 02/2019 Raynauds syndrome MILD (EFFECTING FINGERS) Short-term memory loss Sinus bradycardia Surgical History Blocked tear duct repair of of tear duct History of cardiac cath 02/2002 and then needed cabg x 4 History of cataract surgery RT/ LT History of colonoscopy History of coronary artery bypass graft 2001/CABG 4 VESSELS done at [place] History of inguinal hernia repair History of tonsillectomy Hx of hernia repair repair of inguinal hernia Family History Sister Family history of diabetes mellitus Hypertension Family/Other Family history of diabetes mellitus Father Acute myocardial infarction Denies family history of Ovarian cancer Prostate cancer Myocardial infarction Breast cancer Colorectal cancer Social History Smoking Status: Never smoker Second Hand Exposure: No; Do You Dip or Chew Tobacco: No; Tobacco Cessation Education Requested by Patient: No Hx Alcohol Use: No Hx Substance Use: No Preferred Language: [place] Communication Ability: Impaired Visual Impairment: Limited Hearing Ability: Normal [employer] Required: No Beliefs That Will Affect Care: None marital status: Current Living Situation: Other Current Living Situation Comment: memory care at [facility] current occupational status: retired How many Children do You have: 2 Other Information That Helps Us Care for You: No Feels Safe at Home: Yes Childhood Exposure to Second-Hand Smoke: No caffeine: Yes (coffee and sometimes tea ) Dental Care, Regularly: Yes Physical Activity Frequency: Daily Physical Activity Frequency Comment: walks 40 mins a day Seatbelt Use: always Sunscreen Use: Yes Assistive Devices: None Review of Systems Review of Systems: All systems reviewed & are unremarkable except as noted in HPI & below Physical Exam Physical Exam: General: elderly frail appearing male, covered up in bed, resting comfortably with at bedside, no acute distress HEENT: head normocephalic, atraumatic, pupils equal and reactive, no erythema of oropharynx, no lymphadenopathy, DRY MM with cracked lips Resp; CTAB, no w/c/r, 99% on RA CV: RRR (HR 62bpm), no m/r/g, trace pedal edema, calves non-tender, no erythema, cap refill wnl GI: +BS, soft, non-tender MSK/Neuro: no focal deficits, moves all extremities (reportedly was swinging/hi tting staff), wrapped in blankets Psych: able to be arouse, alert to name, not oriented to place/time, just received ativan and drifting back to sleep quickly Skin: warm, dry, no obvious lesions/rash Results & Data Results & Data ([facility]) Vital Signs (Past 12 Hours) Vital Signs Temp Pulse Resp BP Pulse Ox 07/25/21 12:30 83 22 83/66 L 95 07/25/21 12:21 61 19 80/55 L 94 07/25/21 12:03 60 16 72/43 L 94 07/25/21 12:00 60 16 63/41 L 94 07/25/21 11:30 60 11 L 106/64 98 07/25/21 11:06 92 H 18 121/67 98 07/25/21 10:11 61 18 95/56 L 98 07/25/21 09:55 37.1 C 63 18 96/59 L 98 Laboratory Results 07/25/21 07/25/21 07/25/21 Range/Units 13:58 13:58 13:19 WBC (4.8-10.8) K/uL RBC (4.7-6.1) M/uL Hgb (14.0-18.0) g/dL Hct (42-52) % MCV (80-100) fL MCH (25-34) pg MCHC (32-36) g/dL RDW Std Deviation (36.4-46.3) fL RDW Coeff of [place] (11.5-14.5) % Plt Count (130-400) K/uL MPV (7.4-10.4) fL Immature Gran % (Auto) % Neut % (Auto) % Lymph % (Auto) % [place] % (Auto) % Eos % (Auto) % Baso % (Auto) % Neut # (Auto) (1.4-6.5) K/uL Lymph # (Auto) (1.2-3.4) K/uL [place] # (Auto) (0.11-0.59) K/uL Eos # (Auto) (0-0.5) K/uL Baso # (Auto) (0-0.2) K/uL Immature Gran # (Auto) (0.00-0.02) K/uL PT (9.0-12.0) Seconds INR (0.9-1.1) APTT (21.0-31.0) Seconds PTT Ratio Sodium (136-145) mmol/L Potassium (3.5-5.1) mmol/L Chloride (98-107) mmol/L Carbon Dioxide (21-32) mmol/L Anion Gap (3-11) BUN (6-23) mg/dl Creatinine (0.6-1.4) mg/dl Est Cr Clr Drug Dosing ml/min Est GFR ( Amer) ml/min Est GFR (Non-Af Amer) ml/min BUN/Creatinine Ratio (10-20) Glucose (70-99(Fasting)) mg/dl Lactate 1.5 (0.4-2.0) mmol/L Calcium (8.5-10.1) mg/dl Magnesium (1.7-2.4) mg/dl Total Bilirubin (0.2-1.0) mg/dl AST (13-39) U/L ALT (7-52) U/L Alkaline Phosphatase (34-104) U/L Troponin I High Sens (0-20) pg/ml Total Protein (6.0-8.3) gm/dl Albumin (3.4-5.0) gm/dl Globulin (2.5-4.0) gm/dl Albumin/Globulin Ratio (0.9-2) TSH (0.300-4.500) uIu/ml Random Cortisol 15.40 mcg/dl Urine Color Urine Appearance (Clear) Urine pH (4.5-7.5) Ur Specific [place] (1.000-1.030) Urine Protein (Negative) Urine Glucose (UA) (Negative) Urine Ketones (Negative) Urine Blood (Negative) Urine Nitrite (Negative) Urine Bilirubin (Negative) Urine Urobilinogen (Negative) Ur Leukocyte Esterase (Negative) Urine WBC (Auto) (0-5) /hpf Urine RBC (Auto) (0-4) /hpf U Hyaline Cast (Auto) (0-5) /lpf U Epithel Cells (Auto) (0-5) /lpf Urine Bacteria (Auto) (Negative) Valproic Acid (50-100) mcg/ml SARS-CoV-2, RNA, NAAT NEGATIVE (NEGATIVE) 07/25/21 07/25/21 07/25/21 Range/Units 12:33 10:18 10:18 WBC (4.8-10.8) K/uL RBC (4.7-6.1) M/uL Hgb (14.0-18.0) g/dL Hct (42-52) % MCV (80-100) fL MCH (25-34) pg MCHC (32-36) g/dL RDW Std Deviation (36.4-46.3) fL RDW Coeff of Layo (11.5-14.5) % Plt Count (130-400) K/uL MPV (7.4-10.4) fL Immature Gran % (Auto) % Neut % (Auto) % Lymph % (Auto) % [place] % (Auto) % Eos % (Auto) % Baso % (Auto) % Neut # (Auto) (1.4-6.5) K/uL Lymph # (Auto) (1.2-3.4) K/uL [place] # (Auto) (0.11-0.59) K/uL Eos # (Auto) (0-0.5) K/uL Baso # (Auto) (0-0.2) K/uL Immature Gran # (Auto) (0.00-0.02) K/uL PT (9.0-12.0) Seconds INR (0.9-1.1) APTT (21.0-31.0) Seconds PTT Ratio Sodium (136-145) mmol/L Potassium (3.5-5.1) mmol/L Chloride (98-107) mmol/L Carbon Dioxide (21-32) mmol/L Anion Gap (3-11) BUN (6-23) mg/dl Creatinine (0.6-1.4) mg/dl Est Cr Clr Drug Dosing ml/min Est GFR ( Amer) ml/min Est GFR (Non-Af Amer) ml/min BUN/Creatinine Ratio (10-20) Glucose (70-99(Fasting)) mg/dl Lactate (0.4-2.0) mmol/L Calcium (8.5-10.1) mg/dl Magnesium (1.7-2.4) mg/dl Total Bilirubin (0.2-1.0) mg/dl AST (13-39) U/L ALT (7-52) U/L Alkaline Phosphatase (34-104) U/L Troponin I High Sens (0-20) pg/ml Total Protein (6.0-8.3) gm/dl Albumin (3.4-5.0) gm/dl Globulin (2.5-4.0) gm/dl Albumin/Globulin Ratio (0.9-2) TSH 1.676 (0.300-4.500) uIu/ml Random Cortisol mcg/dl Urine Color Dark Yellow Urine Appearance Clear (Clear) Urine pH 6.5 (4.5-7.5) Ur Specific [place] 1.025 (1.000-1.030) Urine Protein Trace H (Negative) Urine Glucose (UA) Negative (Negative) Urine Ketones 1+ H (Negative) Urine Blood Negative (Negative) Urine Nitrite Negative (Negative) Urine Bilirubin Negative (Negative) Urine Urobilinogen Positive H (Negative) Ur Leukocyte Esterase Negative (Negative) Urine WBC (Auto) 1-5 (0-5) /hpf Urine RBC (Auto) 0-4 (0-4) /hpf U Hyaline Cast (Auto) 1-5 (0-5) /lpf U Epithel Cells (Auto) 10-20 H (0-5) /lpf Urine Bacteria (Auto) Negative (Negative) Valproic Acid 50 (50-100) mcg/ml SARS-CoV-2, RNA, NAAT (NEGATIVE) 07/25/21 07/25/21 07/25/21 Range/Units 10:18 10:18 10:18 WBC 8.07 (4.8-10.8) K/uL RBC 3.62 L (4.7-6.1) M/uL Hgb 11.9 L (14.0-18.0) g/dL Hct 35.5 L (42-52) % MCV 98.1 (80-100) fL MCH 32.9 (25-34) pg MCHC 33.5 (32-36) g/dL RDW Std Deviation 47.9 H (36.4-46.3) fL RDW Coeff of Layo 13.3 (11.5-14.5) % Plt Count 170 (130-400) K/uL MPV 10.9 H (7.4-10.4) fL Immature Gran % (Auto) 0.4 % Neut % (Auto) 56.0 % Lymph % (Auto) 30.9 % [place] % (Auto) 10.3 % Eos % (Auto) 2.0 % Baso % (Auto) 0.4 % Neut # (Auto) 4.53 (1.4-6.5) K/uL Lymph # (Auto) 2.49 (1.2-3.4) K/uL [place] # (Auto) 0.83 H (0.11-0.59) K/uL Eos # (Auto) 0.16 (0-0.5) K/uL Baso # (Auto) 0.03 (0-0.2) K/uL Immature Gran # (Auto) 0.03 H (0.00-0.02) K/uL PT 12.3 H (9.0-12.0) Seconds INR 1.2 H (0.9-1.1) APTT 25.1 (21.0-31.0) Seconds PTT Ratio 0.9 Sodium 138 (136-145) mmol/L Potassium 4.6 (3.5-5.1) mmol/L Chloride 103 (98-107) mmol/L Carbon Dioxide 27 (21-32) mmol/L Anion Gap 8 (3-11) BUN 42 H (6-23) mg/dl Creatinine 1.62 H (0.6-1.4) mg/dl Est Cr Clr Drug Dosing 34.9 ml/min Est GFR ( Amer) 43.9 ml/min Est GFR (Non-Af Amer) 37.9 ml/min BUN/Creatinine Ratio 25.9 H (10-20) Glucose 156 H (70-99(Fasting)) mg/dl Lactate (0.4-2.0) mmol/L Calcium 9.0 (8.5-10.1) mg/dl Magnesium 2.0 (1.7-2.4) mg/dl Total Bilirubin 0.7 (0.2-1.0) mg/dl AST 21 (13-39) U/L ALT 21 (7-52) U/L Alkaline Phosphatase 65 (34-104) U/L Troponin I High Sens (0-20) pg/ml Total Protein 6.7 (6.0-8.3) gm/dl Albumin 3.6 (3.4-5.0) gm/dl Globulin 3.1 (2.5-4.0) gm/dl Albumin/Globulin Ratio 1.2 (0.9-2) TSH (0.300-4.500) uIu/ml Random Cortisol mcg/dl Urine Color Urine Appearance (Clear) Urine pH (4.5-7.5) Ur Specific [place] (1.000-1.030) Urine Protein (Negative) Urine Glucose (UA) (Negative) Urine Ketones (Negative) Urine Blood (Negative) Urine Nitrite (Negative) Urine Bilirubin (Negative) Urine Urobilinogen (Negative) Ur Leukocyte Esterase (Negative) Urine WBC (Auto) (0-5) /hpf Urine RBC (Auto) (0-4) /hpf U Hyaline Cast (Auto) (0-5) /lpf U Epithel Cells (Auto) (0-5) /lpf Urine Bacteria (Auto) (Negative) Valproic Acid (50-100) mcg/ml SARS-CoV-2, RNA, NAAT (NEGATIVE) 07/25/21 Range/Units 10:18 WBC (4.8-10.8) K/uL RBC (4.7-6.1) M/uL Hgb (14.0-18.0) g/dL Hct (42-52) % MCV (80-100) fL MCH (25-34) pg MCHC (32-36) g/dL RDW Std Deviation (36.4-46.3) fL RDW Coeff of Layo (11.5-14.5) % Plt Count (130-400) K/uL MPV (7.4-10.4) fL Immature Gran % (Auto) % Neut % (Auto) % Lymph % (Auto) % [place] % (Auto) % Eos % (Auto) % Baso % (Auto) % Neut # (Auto) (1.4-6.5) K/uL Lymph # (Auto) (1.2-3.4) K/uL [place] # (Auto) (0.11-0.59) K/uL Eos # (Auto) (0-0.5) K/uL Baso # (Auto) (0-0.2) K/uL Immature Gran # (Auto) (0.00-0.02) K/uL PT (9.0-12.0) Seconds INR (0.9-1.1) APTT (21.0-31.0) Seconds PTT Ratio Sodium (136-145) mmol/L Potassium (3.5-5.1) mmol/L Chloride (98-107) mmol/L Carbon Dioxide (21-32) mmol/L Anion Gap (3-11) BUN (6-23) mg/dl Creatinine (0.6-1.4) mg/dl Est Cr Clr Drug Dosing ml/min Est GFR ( Amer) ml/min Est GFR (Non-Af Amer) ml/min BUN/Creatinine Ratio (10-20) Glucose (70-99(Fasting)) mg/dl Lactate (0.4-2.0) mmol/L Calcium (8.5-10.1) mg/dl Magnesium (1.7-2.4) mg/dl Total Bilirubin (0.2-1.0) mg/dl AST (13-39) U/L ALT (7-52) U/L Alkaline Phosphatase (34-104) U/L Troponin I High Sens 19.8 (0-20) pg/ml Total Protein (6.0-8.3) gm/dl Albumin (3.4-5.0) gm/dl Globulin (2.5-4.0) gm/dl Albumin/Globulin Ratio (0.9-2) TSH (0.300-4.500) uIu/ml Random Cortisol mcg/dl Urine Color Urine Appearance (Clear) Urine pH (4.5-7.5) Ur Specific [place] (1.000-1.030) Urine Protein (Negative) Urine Glucose (UA) (Negative) Urine Ketones (Negative) Urine Blood (Negative) Urine Nitrite (Negative) Urine Bilirubin (Negative) Urine Urobilinogen (Negative) Ur Leukocyte Esterase (Negative) Urine WBC (Auto) (0-5) /hpf Urine RBC (Auto) (0-4) /hpf U Hyaline Cast (Auto) (0-5) /lpf U Epithel Cells (Auto) (0-5) /lpf Urine Bacteria (Auto) (Negative) Valproic Acid (50-100) mcg/ml SARS-CoV-2, RNA, NAAT (NEGATIVE) Diagnostic Findings Chest X-Ray 07/25/21 10:27 XR chest 1V portable CLINICAL HISTORY: weakness COMPARISON STUDY: Chest radiograph October 04, 2018. FINDINGS: A left subclavian pacer and median sternotomy are noted. Note is made of cardiomegaly. No evidence for pulmonary edema. Multiple old right rib fractures are present. Lungs are diminished. No lobar consolidation. No pneumothorax or pleural effusion. IMPRESSION: 1. Low lung volumes. No acute findings. 2. Cardiomegaly. No evidence for pulmonary edema. ACT 112: Negative or not required by law. Electronically signed by: Bay Moctezuma M.D. 07/25/2021 10:56 AM Abdomen/Pelvis CT 07/25/21 10:39 CT OF THE ABDOMEN AND PELVIS WITHOUT CONTRAST CLINICAL HISTORY: Altered mental status. COMPARISON STUDY: KUB March 10, 2021. CT of the abdomen and pelvis August 01, 2020. TECHNIQUE: Axial images of the abdomen and pelvis were obtained without IV contrast. Images were reviewed in the axial, sagittal, and coronal planes. Automated exposure control was utilized for the study. A dose lowering technique was utilized adhering to the principles of ALARA. FINDINGS: A few densities within the left lower lobe are unchanged from earlier exams. These are likely benign. There is a small hiatal hernia. Cardiomegaly is noted. Pacer leads are partially imaged. This exam is compromised by lack of contrast and motion artifact. A 1.2 cm right renal pelvis calculus is noted. There is mild right collecting system dilatation. There are no ureteral calculi. Small calcifications within left renal sinus could reflect small renal calculi or vascular calcifications. Water attenuation lesions within the lower pole of the left kidney and upper pole of the right kidney favor cysts. Unenhanced images of the liver, spleen, adrenal glands and pancreas are unremarkable. No biliary or pancreatic ductal dilatation is present. No evidence for a bowel obstruction. Probable visualization of the appendix is noted. The appendix is normal. Moderate amount of stool within the colon is present. There is no lymphadenopathy or ascites. No fluid collection to suggest an abscess. No acute fracture or suspicious lesion within the visualized skeletal structures. IMPRESSION: 1. 1.2 cm right renal pelvis calculus. This is likely minimally obstructing given mild right collecting system dilatation. 2. No bowel obstruction. No definite bowel wall thickening. Moderate amount of stool within the colon. 3. Exam compromised given motion artifact and lack of IV contrast. ACT 112: Negative or not required by law. Electronically signed by: Bay Moctezuma M.D. 07/25/2021 11:[address] 07/25/21 10:39 CT OF THE HEAD WITHOUT CONTRAST CLINICAL HISTORY: Altered mental status. Hypotension. COMPARISON STUDY: Head CT December 15, 2010. MRI of the brain January 01, 2021. TECHNIQUE: Helical axial images of the head were obtained without IV contrast. Automated exposure control was utilized for the study. A dose lowering technique was utilized adhering to the principles of ALARA. FINDINGS: This study is mildly compromised by motion artifact. Cerebral atrophy is again noted which accounts for ventricular dilatation. No acute intracranial hemorrhage, midline shift or mass effect is present. The ventricular system is stable. The basal cisterns are patent. No extra-axial collections are present. There are no findings to suggest acute dural sinus thrombosis or acute territorial infarct. No significant calvarial abnormalities are present.. Fluid within the bilateral mastoid air cells. IMPRESSION: No acute intracranial findings. No change in appearance of the brain. Cerebral atrophy. ACT 112: Negative or not required by law. Electronically signed by: Bay Moctezuma M.D. 07/25/2021 11:11 AM Supervising Physician Co-Signing Physician Notes 86 yo male seen and examined at bedside. During face to face encounter, obtained history and physical examination. Discussed plan of care with patient and APC Lavonne. Reviewed above note and agree with it. Patient will be admitted for hypotension. will hold BP meds and monitor. PG Care Time/CCT Total # of Minutes Spent Total Time Spent with Patient: Total time spent is greater than 50% in coordination of care (as documented) at patient's floor/unit and/or counseling patient: Coding Level of Care Code INT OBSERVATION CARE 70M LVL 3 Diagnoses Pacemaker Z95.0 History of coronary artery bypass graft Z95.1 CKD (chronic kidney disease), stage III N18.30 Hypothyroidism E03.9 Dementia F03.90 Dyslipidemia E78.5 Hypertension I10 CAD (coronary artery disease) I25.810 Associated angina: without angina Coronary Disease-Associated Artery/Lesion type: bypass graft [place] vs. transplanted heart: [place] heart Hypotension I95.9 Dehydration E86.0 Acute kidney injury N17.9 (1) CAD (coronary artery disease) Associated angina: without angina Coronary Disease-Associated Artery/Lesion type: bypass graft [place] vs. transplanted heart: [place] heart Qualified Code(s): I25.810 - Atherosclerosis of coronary artery bypass graft(s) without angina pectoris
[2021-07-25] MEDS ORDERED: ONDANSETRON INJ 2 MG/ML 2 ML VIAL IV PRN (15:36)
[2021-07-25] MEDS ORDERED: ACETAMINOPHEN 325 MG TAB PO PRN (15:36)
[2021-07-25 16:31] LABS: Folate (Folic Acid) > 22.30 ng/ml (>5.38)
[2021-07-25 16:32] LABS: Procalcitonin < 0.05 ng/ml (0-0.5); Vitamin B12 598 pg/ml (180-914)
[2021-07-25 16:35] LABS: Rapid Plasma Reagin Nonreactive (Nonreactive)
[2021-07-25] MEDS ORDERED: NITROGLYCERIN SL 0.4 MG/TAB TAB SL PRN (18:20)
[2021-07-25] MEDS ORDERED: ALUMINUM/MAGNESIUM SUSP 30 ML UDC PO PRN (18:20)
[2021-07-25] MEDS ORDERED: NON-FORMULARY MEDICATION (Chlorpheniramine Maleate 4 mg Tablet) PO PRN (18:20)
[2021-07-25] MEDS ORDERED: MAGNESIUM HYDROXIDE SUSP 30 ML UDC PO PRN (18:20)
[2021-07-25] MEDS: SODIUM CHLORIDE 0.9% 1000ML 1,000 ML IV SCH (18:46)
[2021-07-25] MEDS ORDERED: LORATADINE 10 MG TAB PO PRN (18:49)
[2021-07-25] MEDS: QUEtiapine FUMARATE 25 MG TABLET PO SCH (20:45)
[2021-07-25] MEDS: DIVALPROEX SODIUM SPRINKLE/DEL-REL 125 MG CAP PO SCH (20:47)
[2021-07-25] MEDS: SIMVASTATIN 20 MG TAB PO SCH (20:47)
[2021-07-26] MEDS ORDERED: MELATONIN 3 MG TAB PO ONE (00:55)
[2021-07-26] MEDS: LEVOTHYROXINE SODIUM 50 MCG TABLET PO SCH (05:48)
[2021-07-26] MEDS: SODIUM CHLORIDE 0.9% 1000ML 1,000 ML IV SCH (05:48)
[2021-07-26] MEDS: VITAMIN B COMPLEX TAB PO SCH (07:49)
[2021-07-26] MEDS: FINASTERIDE 5 MG TAB PO SCH (07:50)
[2021-07-26] MEDS: QUEtiapine FUMARATE 100 MG TABLET PO SCH (07:50)
[2021-07-26] MEDS: DOCUSATE SODIUM SYRUP 100 MG/10 ML UDC PO SCH (07:50)
[2021-07-26] MEDS: ASPIRIN 325 MG ECTAB PO SCH (07:50)
[2021-07-26] MEDS: ESCITALOPRAM OXALATE 10 MG TAB PO SCH (07:50)
[2021-07-26] MEDS: DIVALPROEX SODIUM SPRINKLE/DEL-REL 125 MG CAP PO SCH ×2 (09:34→20:20)
[2021-07-26 10:29] LABS: Hemoglobin 10.5 g/dL (14.0-18.0); Mean Corpuscular Hemoglobin 32.6 pg (25-34); Mean Corpuscular Hgb Conc 33.9 g/dL (32-36); Mean Corpuscular Volume 96.3 fL (80-100); Mean Platelet Volume 10.4 fL (7.4-10.4); Platelet Count 122 K/uL (130-400); RDW Coefficient of Variation 13.3 % (11.5-14.5); Red Blood Count 3.22 M/uL (4.7-6.1); White Blood Count 5.47 K/uL (4.8-10.8)
--- NOTE | 2021-07-26 10:40 | Discharge Summary ---
Date of Service July 26, 2021 Admission HPI Per Admitting Provider 86yo male with PMHx significant for CAD (s/p CABG x 4 2001), heart block s/p pacemaker, HTN, HLD, Hypothyroidism, CKD, Raynauds, hx nephrolithiasis, and Alzheimer's dementia requiring placement in Dementia Unit at [facility]/[place] presented to the ER after he was found to be difficult to arouse when they went to wake him up today and was noted to have low blood pressure and low oxygen saturation by staff. Saturation listed at 90% on paperwork, BPs systolic in the 90s. Upon arrival to ER was agitated and swinging at staff. Per significant other, this does occur when he has infections. No known fevers reported prior to admission. Of note, no recent office visits from cardiology, however appears per as she states patient recently started on a water pill. Per review of recent medications sent, HCTZ 25mg appears on list, and could be contributing. Per , she states Dr Fregoso called this in due to LE swelling (since resolved but endorse patient sits with legs dependent and could rec stockings). She pi cked up the medication on Tuesday and patient started it on Tuesday and she has been visiting him at [facility] daily and noticed he looked more dehydrated and hadn't really been eating/drinking very much. She notes he does also take lisinopril 40mg daily, metoprolol 100mg for his CAD. She states in regards to the Seroquel, his mood worsened once moved to [facility] in May and his medication were increased and has been stable on 100mg in the morning, 50mg around lunch, and 50mg at bedtime in addition to 10mg lexaprol and depakote 250mg BID. They do have known history of R kidney stone, she states approx 10mm in size and monitors with Urology. No issues on imaging and UA without infection. She does endorse he has issues with constipation and they have been giving colace at group home. No issues with eating/swallowing at baseline. Discussed likely hypotension due to medications and will not continue abx at this time and monitor overnight, hydrate and evaluate/monitor with hopes of getting patient back to [facility] as soon as possible. agreeable to plan. Patient just got dose of Ativan and resting comfortable but had been agitated and hitting/swinging at staff. Resting comfortably and opens eyes/smiles but unable to participate in comprehensive ROS/exam. Nofever, chills, chest pain, shortness of breath, abdominal pain, nausea or vomiting reported. POLST on chart. NOT DNR. ER Course: 1.5L NSS, Ativan, Blood cultures, Zosyn x 1 No fever. WBC 8k, hgb 11.9, MCV 98.1, INR 1.2. Na 138, K 4.6. BUN 42, Cr 1.62 Admission Exam Per Admitting Provider General: elderly frail appearing male, covered up in bed, resting comfortably with at bedside, no acute distress HEENT: head normocephalic, atraumatic, pupils equal and reactive, no erythema of oropharynx, no lymphadenopathy, DRY MM with cracked lips Resp; CTAB, no w/c/r, 99% on RA CV: RRR (HR 62bpm), no m/r/g, trace pedal edema, calves non-tender, no erythema, cap refill wnl GI: +BS, soft, non-tender MSK/Neuro: no focal deficits, moves all extremities (reportedly was swinging/hitting staff), wrapped in blankets Psych: able to be arouse, alert to name, not oriented to place/time, just received ativan and drifting back to sleep quickly Skin: warm, dry, no obvious lesions/rash Principal Diagnosis Hypotension, Dehydration Discharge Data Allergies Allergy/AdvReac Type Severity Reaction Status Date / Time No Known Allergies Allergy Verified 07/25/21 12:18 Consultations 07/25/21 14:30 ED Decision to Admit Stat Ordered Studies 07/25/21 10:39 CT abd pelvis wo con Stat CT head/brain wo con Stat Hospital Course (1) Hypotension: Presented with hypotension. Review of meds, new rx for HCTZ 25mg daily and has been taking since Tuesday with worsening PO intake and dehydration per during visits at [facility]. BPs at [facility] 90/54, pulse ox 90% CT head without acute CVA CXR without pneumonia CTAP without acute process but does note 1.2 cm R renal pelvis calculi --> UA without evidence for infection. (known stone) Also presented with LIAT, Cr up to 1.6 (BUN 42) with baseline closer to 1.2-1.3 1.5L NSS in ER thus far, additional 500cc bolus infusing currently AVOID further HCTZ, would discontinue at discharge. Encourage low salt diet/compression stockings as able to tolerate for minimal LE pedal edema as reported by for reasoning to start such BP improved to 128/74 after 1.5 L, 500cc bolus infusing now for BP 99/58 --> Start NSS @ 100cc/hr Hold lisinopril, metoprolol for AM Seroquel could also be contributing but has kept mood stable and has been on this medication since May (100 + 50 + 50mg daily) TSH wnl Cortisol pending --> wnl 15.4 EKG pending -- Trop 19.8 high sensitivity, will repeat for completeness procal added Got dose of Zosyn in ER, will not continue given WBC wnl, no fever and no infectious source on imaging/examination and suspect 2nd to medications Blood cultures obtained in ER -- monitor Monitor overnight but hopeful to return to [facility] per as soon as medically stable (2) Dehydration: 2nd to poor PO intake over past week/HCTZ use IVF ordered Monitor (3) CAD (coronary artery disease): hx CAD, s/p CABG x 4 in 2019 EKG pending but denied CP. Trop 19, repeat pending Typically on metoprolol, lisinopril but will hold these due to hypotension and resume when able/Cr improved Follows locally with Dr Fregoso/Dr Zabala (4) Hypertension: Now with hypotension as above Holding BP medications Monitor (5) Dyslipidemia: continue statin (6) Acute kidney injury: acute kidney injury on CKD Cr 1.62 on admission with baseline closer to 1.2-1.3 Hold lisinopril, would likley d/c HCTZ IVF ordered BMP in AM (7) CKD (chronic kidney disease), stage III: liat on ckd on admission (8) History of coronary artery bypass graft: noted, 2019. see CAD (9) Pacemaker: 2nd to heart block follows with Dr Zabala will place order for pacer interrogation (10) Hypothyroidism: TSH wnl continue home levothyroxine 50mcg daily (11) Dementia: from [facility] Memory unit Continues on lexaprol, seroquel, depakote BID --> Takes 100mg seroquel in AM, 50mg around lunch, and 50mg before bed. Could also be contributing but has been on this dosing since May without issue and will continue Did get dose of Ativan x 1 in ER, would avoid further dosing if possible in elderly patinet with dementia TSH wnl Will check B12 for completeness given borderline MCV observation overnight, possible d/c in AM pending Discharge Plan Discharge Items Patient Disposition: Transfer [facility] Care Fac Reason For Visit: HYPOTENSION, UNRESPONSIVE Discharge Diagnosis: Hypotension, Dehydration Condition on Discharge: Good Goals: You have been hospitalized for an acute medical problem. During your stay at [facility], we have made an effort to correct the problem that brought you to the hospital while keeping you as comfortable as possible. Medications were used to bring your condition under control and your discharge instructions will include directions for any medications you should take after leaving the hospital. Please make sure you see your Primary Care Provider as part of your follow up plan. Activity: Resume your previous activity Non-emergency contact: Primary Care Provider Call non-emergency contact if: you have any medication questions Follow-up/Referrals: Zakia Lundberg [place] [Primary Care Provider] - Diet: Heart Healthy Addtl Attending Provider Instructions: You have been hospitalized for episode of unresponsiveness and hypotension. CT of the head was NEGATIVE for stroke. Chest xray NEGATIVE for pneumonia CTAP showed stable 1.2cm renal stone, no obstructions, no bowel thickening. Does show some stool, and should encourage bowel regimen at home. Urine analysis did not show evidence for infection. Blood cultures were drawn, but no growth. You did get a dose of antibiotics in the ER, but no infectious cause was found, no elevated white count and no fevers and these were discontinued. This is felt to be related to recent blood pressure medication used for lower extremity swelling called hydrochlorothiazide which caused worsening dehydration and acute kidney injury from this. This HYDROCHLOROTHIAZIDE medication has been STOPPED during inpatient stay and you have been provided IV hydration. You should hold your lisinopril tomorrow and can resume if blood pressures elevated, otherwise can resume this medication on Tuesday. I would recommend they repeat BMP on Tuesday or Tuesday to ensure kidney function remains stable after restarting the lisinopril. If it remains elevated or blood pressures on the lower side, may need to consider decreasing your dose of lisinopril to prevent worsening dehydration. You should attempt to keep legs elevated to prevent swelling, adhere to low salt diet, and use compression stockings for swelling. You should follow up with PCP in the next 7-10 days to monitor progress. Please return to the ER for any continued hypotension, increased confusion or for any other symptoms concerning for you. Take care! Pending Studies at Discharge: Yes Studies:: Blood cultures Stand-Alone Forms: My [facility] Skilled Items Patient informed of condition?: Yes DNR: No Discharge Level of Care: Other Communicable Disease: No Discharge Prognosis: Stable Lines: None Urinary Catheter: No Medications and DC Order Prescriptions: Continued lisinopril 40 mg tablet 40 mg PO QAM Qty: 90 RF: 3 nitroglycerin 0.4 mg tablet, sublingual 0.4 mg SL .COMPLEX PRN (Reason: Chest Pain) Qty: 25 RF: 5 simvastatin 20 mg tablet 20 mg PO QPM Qty: 90 RF: 3 metoprolol succinate 100 mg tablet extended release 24 hr 100 mg PO QAM Qty: 90 RF: 3 cholecalciferol (vitamin D3) 2,000 unit capsule 2,000 units PO QAM RF: 0 finasteride 5 mg tablet 5 mg PO DAILY Qty: 90 RF: 3 Centrum Silver Men 300-600-300 mcg tablet 1 tab PO DAILY RF: 0 omega [id number] oil [Fish Oil] 1,000 mg (120 mg-180 mg) Capsule 3 cap PO QAM RF: 0 aspirin 325 mg tablet 650 mg PO QAM RF: 0 vitamin B complex Capsule 1 cap PO QAM RF: 0 chlorpheniramine maleate 4 mg Tablet 4 mg PO DAILY PRN (Reason: Allergy Symptoms) RF: 0 Colace 50 mg Capsule 50 mg PO DAILY RF: 0 quetiapine [Seroquel] 100 mg Tablet 100 mg PO DAILY RF: 0 divalproex 125 mg capsule, delayed rel sprinkle 250 mg PO BID RF: 0 escitalopram oxalate 10 mg tablet 10 mg PO DAILY RF: 0 Saccharomyces boulardii 250 mg Capsule 0 mg PO DAILY RF: 0 quetiapine 50 mg tablet 50 mg PO BID RF: 0 levothyroxine 50 mcg tablet 50 mcg PO DAILYBB RF: 0 Admission Data Admit Date/Time: 07/25/21 15:17 Attending Provider: Jax Barrett Admit Provider: Jax Barrett Primary Care Provider: Zakia Lundberg [place] Other Providers: Jax Barrett Coding Diagnoses Hypotension I95.9 Dehydration E86.0 CAD (coronary artery disease) I25.810 Coronary Disease-Associated Artery/Lesion type: bypass graft [place] vs. transplanted heart: [place] heart Associated angina: without angina Hypertension I10 Dyslipidemia E78.5 Acute kidney injury N17.9 CKD (chronic kidney disease), stage III N18.30 History of coronary artery bypass graft Z95.1 Pacemaker Z95.0 Hypothyroidism E03.9 Dementia F03.90
[2021-07-26] MEDS ORDERED: SODIUM CHLORIDE 0.9% 500 ML IV SCH (10:45)
[2021-07-26 10:46] LABS: BUN Creatinine Ratio 28.6 (10-20); Calcium 8.1 mg/dl (8.5-10.1); Creatinine Clr Calc Pharmacy 48.1 ml/min; Est GFR (African American) 68.6 ml/min; Est GFR (Non-African American) 59.2 ml/min; Magnesium 1.7 mg/dl (1.7-2.4); Potassium 4.1 mmol/L (3.5-5.1)
[2021-07-26] MEDS ORDERED: MAGNESIUM SULFATE / D5W 1 GM/100 ML BAG IV ONE (11:00)
--- NOTE | 2021-07-26 11:32 | Hospitalist Progress Note ---
Date of Service July 26, 2021 Assessment & Plan (1) Hypotension: Plan: IMPROVED -- BP currently 128/79 Presented with hypotension, BP at [facility] 90/54 with Pox 90% Review of meds, recent new rx for HCTZ 25mg daily and has been taking since Tuesday with worsening PO intake and dehydration per during visits at [facility]. Has been NSR on monitor CT head without acute CVA CXR without pneumonia CTAP without acute process but does note 1.2 cm R renal pelvis calculi --> UA without evidence for infection. (known stone) ZOsyn x 1 in ER, discontinued. WBC wnl/no fever/no infectious etiology suspected BCx obtained in ER, no growth to date UA without evidence for infection TSH wnl Cortisol wnl 15.4 EKG without evidence for ischemia-- Trop 19.8 high sensitivity, repeat decreased Procal negative Seroquel could also be contributing but has kept mood stable and has been on this medication since May (100 + 50 + 50mg daily) LIAT, Cr up to 1.6 (BUN 42) with baseline closer to 1.2-1.3 * 2L IVF in ER, continued on NSS @ 100cc/hr through today. Additional 500cc to be provided as BUN/Cr improved to 32/1.12 * -->AVOID further HCTZ, would discontinue at discharge. Encourage low salt diet/compression stockings as able to tolerate for minimal LE pedal edema as reported by for reasoning to start such * May need to consider decreasing lisinopril (on hold still) but can resume once hydration back to baseline and repeat labs at [facility] Per , had been ambulatory at [facility] * --> Asked PT to see patient, did not do well. Alerted CM, will see if [facility] able to accommodate in skilled portion with transition back to Memory Unit. Likely to need pre-auth and unable to do over weekend. Monitor overnight but hopeful to return to [facility] per as soon as medically stable (2) Dehydration: Plan: IMPROVED 2nd to poor PO intake over past week/HCTZ use IVF ordered, d/c HCTZ, continuing to hold lisinopril. Cautious in resuming lisinopril and will need monitoring of labs/BP to ensure hydration once resumed and kidney function remains stable Monitor (3) CAD (coronary artery disease): Plan: hx CAD, s/p CABG x 4 in 2019 Typically on metoprolol, lisinopril but will hold these due to hypotension and resume when able/Cr improved --> Resuming metoprolol for today as BPs improved to 128/79 but holding diuretics Follows locally with Dr Fregoso/Dr Zabala -- outpt f/u (4) Hypertension: Plan: Now with hypotension as above Holding BP medications, resume metoprolol for CAD but hold diuretics --> Consider resuming lisinopril tomorrow vs Tuesday and consider at decreased dose to prevent dehydration Monitor (5) Dyslipidemia: Plan: continue statin (6) Acute kidney injury: Plan: acute kidney injury on CKD IVF provided as above and Cr imprvoed to baseline, still slightly dehydrated on exam and additional 500cc IVF to be provided D/C HCTZ in outpatient setting, consider decreased lisinopril but would hold off resuming for now as outlined BMP in AM (7) CKD (chronic kidney disease), stage III: Plan: liat on ckd on admission (8) History of coronary artery bypass graft: Plan: noted, 2019. 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 Could also be contributing but has been on this dosing since May without issue and will continue Did get dose of Ativan x 1 in ER, would avoid further dosing if possible in elderly patient with dementia TSH, B12 wnl Melatonin HS ordered Could use low dose ativan if needed for agitation but would avoid in demented patient 1;1 vs Q15m checks for safety Plan: continued inpatient stay but hopeful to return back to [facility] tomorrow -- SNF vs Memory unit pending ability to accept based on PT eval Admission and Anticipated Discharge Date Admission Date: July 25, 2021 Subjective Patient evaluated this morning. Doing alright. Much more alert today, still confused but baseline severe Alzheimer at memory unit. Took pills fine for nursing this morning. MM much improved but still slightly dry. Per , had been able to ambulate at [facility]. Will have PT see, but if did well was planning to discharge as hydration status improved. Did update on plans for medications/repeat labs to ensure kidney function stable and possible need to lisinopril in the future. 1:1 at bedside. Calm and cooperative. Not oriented to place/time. Not pulling/aggressive or swinging but did not sleep much overnight. Given did not do well with therapy, planning to have CM check with [facility] if able to take in skilled portion/need for prior auth. Review of Systems Review of Systems: All systems reviewed & are unremarkable except as noted in HPI & below Physical Exam Physical Exam: General: elderly frail appearing male, covered up in bed, resting comfortably in bed, NAD, calm and cooperative HEENT: head normocephalic, atraumatic, pupils equal and reactive, no erythema of oropharynx, no lymphadenopathy, improvement of mm, still slightly dry, less cracking of lips Resp; CTAB, no w/c/r, 97% on RA CV: RRR (HR 68bpm), no m/r/g, trace pedal edema, calves non-tender, no erythema, cap refill wnl GI: +BS, soft, non-tender MSK/Neuro: no focal deficits, moves all extremities , wrapped in blankets Psych: alert to name, not oriented to place/time/event, pleasantly confused Skin: warm, dry, no obvious lesions/rash Results & Data Results & Data ([facility]) Vital Signs (Past 12 Hours) Vital Signs Pulse 07/26/21 07:32 66 Laboratory Results 07/26/21 07/26/21 07/25/21 Range/Units 10:08 10:08 16:59 WBC 5.47 (4.8-10.8) K/uL RBC 3.22 L (4.7-6.1) M/uL Hgb 10.5 L (14.0-18.0) g/dL Hct 31.0 L (42-52) % MCV 96.3 (80-100) fL MCH 32.6 (25-34) pg MCHC 33.9 (32-36) g/dL RDW Std Deviation 46.0 (36.4-46.3) fL RDW Coeff of [place] 13.3 (11.5-14.5) % Plt Count 122 L (130-400) K/uL MPV 10.4 (7.4-10.4) fL Sodium 139 (136-145) mmol/L Potassium 4.1 (3.5-5.1) mmol/L Chloride 109 H (98-107) mmol/L Carbon Dioxide 22 (21-32) mmol/L Anion Gap 8 (3-11) BUN 32 H (6-23) mg/dl Creatinine 1.12 D (0.6-1.4) mg/dl Est Cr Clr Drug Dosing 48.1 ml/min Est GFR ( Amer) 68.6 ml/min Est GFR (Non-Af Amer) 59.2 ml/min BUN/Creatinine Ratio 28.6 H (10-20) Glucose 100 H (70-99(Fasting)) mg/dl Lactate (0.4-2.0) mmol/L Calcium 8.1 L (8.5-10.1) mg/dl Magnesium 1.7 (1.7-2.4) mg/dl Troponin I High Sens 12.9 D (0-20) pg/ml Vitamin B12 (180-914) pg/ml Folate (>5.38) ng/ml Procalcitonin (0-0.5) ng/ml TSH (0.300-4.500) uIu/ml Random Cortisol mcg/dl Urine Color Urine Appearance (Clear) Urine pH (4.5-7.5) Ur Specific [place] (1.000-1.030) Urine Protein (Negative) Urine Glucose (UA) (Negative) Urine Ketones (Negative) Urine Blood (Negative) Urine Nitrite (Negative) Urine Bilirubin (Negative) Urine Urobilinogen (Negative) Ur Leukocyte Esterase (Negative) Urine WBC (Auto) (0-5) /hpf Urine RBC (Auto) (0-4) /hpf U Hyaline Cast (Auto) (0-5) /lpf U Epithel Cells (Auto) (0-5) /lpf Urine Bacteria (Auto) (Negative) RPR (Nonreactive) SARS-CoV-2, RNA, NAAT (NEGATIVE) 07/25/21 07/25/21 07/25/21 Range/Units 13:58 13:58 13:58 WBC (4.8-10.8) K/uL RBC (4.7-6.1) M/uL Hgb (14.0-18.0) g/dL Hct (42-52) % MCV (80-100) fL MCH (25-34) pg MCHC (32-36) g/dL RDW Std Deviation (36.4-46.3) fL RDW Coeff of [place] (11.5-14.5) % Plt Count (130-400) K/uL MPV (7.4-10.4) fL Sodium (136-145) mmol/L Potassium (3.5-5.1) mmol/L Chloride (98-107) mmol/L Carbon Dioxide (21-32) mmol/L Anion Gap (3-11) BUN (6-23) mg/dl Creatinine (0.6-1.4) mg/dl Est Cr Clr Drug Dosing ml/min Est GFR ( Amer) ml/min Est GFR (Non-Af Amer) ml/min BUN/Creatinine Ratio (10-20) Glucose (70-99(Fasting)) mg/dl Lactate (0.4-2.0) mmol/L Calcium (8.5-10.1) mg/dl Magnesium (1.7-2.4) mg/dl Troponin I High Sens (0-20) pg/ml Vitamin B12 598 (180-914) pg/ml Folate > 22.30 (>5.38) ng/ml Procalcitonin < 0.05 (0-0.5) ng/ml TSH (0.300-4.500) uIu/ml Random Cortisol 15.40 mcg/dl Urine Color Urine Appearance (Clear) Urine pH (4.5-7.5) Ur Specific [place] (1.000-1.030) Urine Protein (Negative) Urine Glucose (UA) (Negative) Urine Ketones (Negative) Urine Blood (Negative) Urine Nitrite (Negative) Urine Bilirubin (Negative) Urine Urobilinogen (Negative) Ur Leukocyte Esterase (Negative) Urine WBC (Auto) (0-5) /hpf Urine RBC (Auto) (0-4) /hpf U Hyaline Cast (Auto) (0-5) /lpf U Epithel Cells (Auto) (0-5) /lpf Urine Bacteria (Auto) (Negative) RPR Nonreactive (Nonreactive) SARS-CoV-2, RNA, NAAT (NEGATIVE) 07/25/21 07/25/21 07/25/21 Range/Units 13:58 13:19 12:33 WBC (4.8-10.8) K/uL RBC (4.7-6.1) M/uL Hgb (14.0-18.0) g/dL Hct (42-52) % MCV (80-100) fL MCH (25-34) pg MCHC (32-36) g/dL RDW Std Deviation (36.4-46.3) fL RDW Coeff of [place] (11.5-14.5) % Plt Count (130-400) K/uL MPV (7.4-10.4) fL Sodium (136-145) mmol/L Potassium (3.5-5.1) mmol/L Chloride (98-107) mmol/L Carbon Dioxide (21-32) mmol/L Anion Gap (3-11) BUN (6-23) mg/dl Creatinine (0.6-1.4) mg/dl Est Cr Clr Drug Dosing ml/min Est GFR ( Amer) ml/min Est GFR (Non-Af Amer) ml/min BUN/Creatinine Ratio (10-20) Glucose (70-99(Fasting)) mg/dl Lactate 1.5 (0.4-2.0) mmol/L Calcium (8.5-10.1) mg/dl Magnesium (1.7-2.4) mg/dl Troponin I High Sens (0-20) pg/ml Vitamin B12 (180-914) pg/ml Folate (>5.38) ng/ml Procalcitonin (0-0.5) ng/ml TSH (0.300-4.500) uIu/ml Random Cortisol mcg/dl Urine Color Dark Yellow Urine Appearance Clear (Clear) Urine pH 6.5 (4.5-7.5) Ur Specific [place] 1.025 (1.000-1.030) Urine Protein Trace H (Negative) Urine Glucose (UA) Negative (Negative) Urine Ketones 1+ H (Negative) Urine Blood Negative (Negative) Urine Nitrite Negative (Negative) Urine Bilirubin Negative (Negative) Urine Urobilinogen Positive H (Negative) Ur Leukocyte Esterase Negative (Negative) Urine WBC (Auto) 1-5 (0-5) /hpf Urine RBC (Auto) 0-4 (0-4) /hpf U Hyaline Cast (Auto) 1-5 (0-5) /lpf U Epithel Cells (Auto) 10-20 H (0-5) /lpf Urine Bacteria (Auto) Negative (Negative) RPR (Nonreactive) SARS-CoV-2, RNA, NAAT NEGATIVE (NEGATIVE) 07/25/21 Range/Units 10:18 WBC (4.8-10.8) K/uL RBC (4.7-6.1) M/uL Hgb (14.0-18.0) g/dL Hct (42-52) % MCV (80-100) fL MCH (25-34) pg MCHC (32-36) g/dL RDW Std Deviation (36.4-46.3) fL RDW Coeff of [place] (11.5-14.5) % Plt Count (130-400) K/uL MPV (7.4-10.4) fL Sodium (136-145) mmol/L Potassium (3.5-5.1) mmol/L Chloride (98-107) mmol/L Carbon Dioxide (21-32) mmol/L Anion Gap (3-11) BUN (6-23) mg/dl Creatinine (0.6-1.4) mg/dl Est Cr Clr Drug Dosing ml/min Est GFR ( Amer) ml/min Est GFR (Non-Af Amer) ml/min BUN/Creatinine Ratio (10-20) Glucose (70-99(Fasting)) mg/dl Lactate (0.4-2.0) mmol/L Calcium (8.5-10.1) mg/dl Magnesium (1.7-2.4) mg/dl Troponin I High Sens (0-20) pg/ml Vitamin B12 (180-914) pg/ml Folate (>5.38) ng/ml Procalcitonin (0-0.5) ng/ml TSH 1.676 (0.300-4.500) uIu/ml Random Cortisol mcg/dl Urine Color Urine Appearance (Clear) Urine pH (4.5-7.5) Ur Specific [place] (1.000-1.030) Urine Protein (Negative) Urine Glucose (UA) (Negative) Urine Ketones (Negative) Urine Blood (Negative) Urine Nitrite (Negative) Urine Bilirubin (Negative) Urine Urobilinogen (Negative) Ur Leukocyte Esterase (Negative) Urine WBC (Auto) (0-5) /hpf Urine RBC (Auto) (0-4) /hpf U Hyaline Cast (Auto) (0-5) /lpf U Epithel Cells (Auto) (0-5) /lpf Urine Bacteria (Auto) (Negative) RPR (Nonreactive) SARS-CoV-2, RNA, NAAT (NEGATIVE) Diagnostic Findings Abdomen/Pelvis CT 07/25/21 10:39 CT OF THE ABDOMEN AND PELVIS WITHOUT CONTRAST CLINICAL HISTORY: Altered mental status. COMPARISON STUDY: KUB March 10, 2021. CT of the abdomen and pelvis August 01, 2020. TECHNIQUE: Axial images of the abdomen and pelvis were obtained without IV contrast. Images were reviewed in the axial, sagittal, and coronal planes. Automated exposure control was utilized for the study. A dose lowering technique was utilized adhering to the principles of ALARA. FINDINGS: A few densities within the left lower lobe are unchanged from earlier exams. These are likely benign. There is a small hiatal hernia. Cardiomegaly is noted. Pacer leads are partially imaged. This exam is compromised by lack of contrast and motion artifact. A 1.2 cm right renal pelvis calculus is noted. There is mild right collecting system dilatation. There are no ureteral calculi. Small calcifications within left renal sinus could reflect small renal calculi or vascular calcifications. Water attenuation lesions within the lower pole of the left kidney and upper pole of the right kidney favor cysts. Unenhanced images of the liver, spleen, adrenal glands and pancreas are unremarkable. No biliary or pancreatic ductal dilatation is present. No evidence for a bowel obstruction. Probable visualization of the appendix is noted. The appendix is normal. Moderate amount of stool within the colon is present. There is no lymphadenopathy or ascites. No fluid collection to suggest an abscess. No acute fracture or suspicious lesion within the visualized skeletal structures. IMPRESSION: 1. 1.2 cm right renal pelvis calculus. This is likely minimally obstructing given mild right collecting system dilatation. 2. No bowel obstruction. No definite bowel wall thickening. Moderate amount of stool within the colon. 3. Exam compromised given motion artifact and lack of IV contrast. ACT 112: Negative or not required by law. Electronically signed by: Bay Moctezuma M.D. 07/25/2021 11:28 AM PG Care Time/CCT Total # of Minutes Spent Total Time Spent with Patient: Total time spent is greater than 50% in coordination of care (as documented) at patient's floor/unit and/or counseling patient: Coding Level of Care Code 40689 Subseq Obs Care Lvl 3 Diagnoses Hypotension I95.9 Dehydration E86.0 CAD (coronary artery disease) I25.810 Associated angina: without angina Coronary Disease-Associated Artery/Lesion type: bypass graft [place] vs. transplanted heart: [place] heart Hypertension I10 Dyslipidemia E78.5 Acute kidney injury N17.9 CKD (chronic kidney disease), stage III N18.30 History of coronary artery bypass graft Z95.1 Pacemaker Z95.0 Hypothyroidism E03.9 Dementia F03.90 (1) CAD (coronary artery disease) Associated angina: without angina Coronary Disease-Associated Artery/Lesion type: bypass graft [place] vs. transplanted heart: [place] heart Qualified Code(s): I25.810 - Atherosclerosis of coronary artery bypass graft(s) without angina pectoris
--- NOTE | 2021-07-26 11:36 | Electrocardiogram Report ---
Test Reason : Blood Pressure : / mmHG Vent. Rate : 063 BPM Atrial Rate : 063 BPM P-R Int : 208 ms QRS Dur : 190 ms QT Int : 486 ms P-R-T Axes : 000 -84 095 degrees QTc Int : 497 ms AV dual-paced rhythm Abnormal ECG When compared with ECG of 01-AUG-2020 11:19, Vent. rate has increased BY 2 BPM Confirmed by Rob Fregoso ([id number]) on 07/26/2021 11:35:23 AM Referred By: [facility] Confirmed By:Rob Fregoso
[2021-07-26] MEDS: METOPROLOL SUCC 50MG EXT REL TAB PO SCH (11:48)
[2021-07-26] MEDS: QUEtiapine FUMARATE 25 MG TABLET PO SCH ×2 (11:48→20:21)
[2021-07-26] MEDS: SIMVASTATIN 20 MG TAB PO SCH (20:20)
[2021-07-26] MEDS ORDERED: MELATONIN 3 MG TAB PO PRN (23:25)
[2021-07-27] MEDS: LEVOTHYROXINE SODIUM 50 MCG TABLET PO SCH (05:53)
[2021-07-27 06:11] LABS: Hematocrit (blood only) 33.6 % (42-52); Hemoglobin 11.9 g/dL (14.0-18.0); Mean Corpuscular Hemoglobin 33.7 pg (25-34); Mean Corpuscular Hgb Conc 35.4 g/dL (32-36); Mean Corpuscular Volume 95.2 fL (80-100); Mean Platelet Volume 10.7 fL (7.4-10.4); Platelet Count 131 K/uL (130-400); RDW Coefficient of Variation 13.3 % (11.5-14.5); Red Blood Count 3.53 M/uL (4.7-6.1); White Blood Count 11.16 K/uL (4.8-10.8)
[2021-07-27 06:31] LABS: BUN Creatinine Ratio 19.8 (10-20); Calcium 8.8 mg/dl (8.5-10.1); Creatinine Clr Calc Pharmacy 48.5 ml/min; Est GFR (African American) 69.3 ml/min; Est GFR (Non-African American) 59.8 ml/min; Potassium 4.2 mmol/L (3.5-5.1)
[2021-07-27] MEDS: DOCUSATE SODIUM SYRUP 100 MG/10 ML UDC PO SCH (09:01)
[2021-07-27] MEDS: VITAMIN B COMPLEX TAB PO SCH (09:01)
[2021-07-27] MEDS: FINASTERIDE 5 MG TAB PO SCH (09:01)
[2021-07-27] MEDS: ESCITALOPRAM OXALATE 10 MG TAB PO SCH (09:01)
[2021-07-27] MEDS: ASPIRIN 325 MG ECTAB PO SCH (09:02)
[2021-07-27] MEDS: QUEtiapine FUMARATE 100 MG TABLET PO SCH (09:02)
[2021-07-27] MEDS: METOPROLOL SUCC 50MG EXT REL TAB PO SCH (09:02)
[2021-07-27] MEDS: DIVALPROEX SODIUM SPRINKLE/DEL-REL 125 MG CAP PO SCH ×2 (09:03→20:22)
[2021-07-27] MEDS: QUEtiapine FUMARATE 25 MG TABLET PO SCH ×2 (13:06→20:54)
[2021-07-27] MEDS: SIMVASTATIN 20 MG TAB PO SCH (20:23)
--- NOTE | 2021-07-27 20:30 | Hospitalist Progress Note ---
Date of Service July 27, 2021 Assessment & Plan (1) Hypotension: Plan: IMPROVED -- BP currently 128/79 Presented with hypotension, BP at [facility] 90/54 with Pox 90% Review of meds, recent new rx for HCTZ 25mg daily and has been taking since Tuesday with worsening PO intake and dehydration per during visits at [facility]. Has been NSR on monitor CT head without acute CVA CXR without pneumonia CTAP without acute process but does note 1.2 cm R renal pelvis calculi --> UA without evidence for infection. (known stone) ZOsyn x 1 in ER, discontinued. WBC wnl/no fever/no infectious etiology suspected BCx obtained in ER, no growth to date UA without evidence for infection TSH wnl Cortisol wnl 15.4 EKG without evidence for ischemia-- Trop 19.8 high sensitivity, repeat decreased Procal negative Seroquel could also be contributing but has kept mood stable and has been on this medication since May (100 + 50 + 50mg daily) LIAT, Cr up to 1.6 (BUN 42) with baseline closer to 1.2-1.3 * 2L IVF in ER, continued on NSS @ 100cc/hr through today. Additional 500cc to be provided as BUN/Cr improved to 32/1.12 * -->AVOID further HCTZ, would discontinue at discharge. Encourage low salt diet/compression stockings as able to tolerate for minimal LE pedal edema as reported by for reasoning to start such * May need to consider decreasing lisinopril (on hold still) but can resume once hydration back to baseline and repeat labs at [facility] Per , had been ambulatory at [facility] * --> Asked PT to see patient, did not do well. Alerted CM, will see if [facility] able to accommodate in skilled portion with transition back to Memory Unit. Possible discharge on 10/27 Monitor overnight but hopeful to return to [facility] per as soon as medically stable (2) Dehydration: Plan: IMPROVED 2nd to poor PO intake over past week/HCTZ use IVF ordered, d/c HCTZ, continuing to hold lisinopril. Cautious in resuming lisinopril and will need monitoring of labs/BP to ensure hydration once resumed and kidney function remains stable Monitor (3) CAD (coronary artery disease): Plan: hx CAD, s/p CABG x 4 in 2019 Typically on metoprolol, lisinopril but will hold these due to hypotension and resume when able/Cr improved --> Resuming metoprolol for today as BPs improved to 128/79 but holding diuretics Follows locally with Dr Fregoso/Dr Zabala -- outpt f/u (4) Hypertension: Plan: Now with hypotension as above Holding BP medications, resume metoprolol for CAD but hold diuretics --> Consider resuming lisinopril tomorrow vs Tuesday and consider at decreased dose to prevent dehydration Monitor (5) Dyslipidemia: Plan: continue statin (6) Acute kidney injury: Plan: acute kidney injury on CKD IVF provided as above and Cr imprvoed to baseline, still slightly dehydrated on exam and additional 500cc IVF to be provided D/C HCTZ in outpatient setting, consider decreased lisinopril but would hold off resuming for now as outlined improving creatinine. (7) CKD (chronic kidney disease), stage III: Plan: liat on ckd on admission (8) History of coronary artery bypass graft: Plan: noted, 2019. 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 Could also be contributing but has been on this dosing since May without issue and will continue Did get dose of Ativan x 1 in ER, would avoid further dosing if possible in elderly patient with dementia TSH, B12 wnl Melatonin HS ordered Could use low dose ativan if needed for agitation but would avoid in demented patient 1;1 vs Q15m checks for safety Plan: continued inpatient stay but hopeful to return back to [facility] tomorrow -- SNF vs Memory unit pending ability to accept based on PT eval Admission and Anticipated Discharge Date Admission Date: July 27, 2021 Subjective 86 yo male remains confused and has a one to one. Review of Systems Review of Systems: All systems reviewed & are unremarkable except as noted in HPI & below Physical Exam Physical Exam: Constitutional: well developed; + not well nourished and no acute distress Eyes: + anicteric sclerae; normal pupil size Respiratory: normal respiratory effort, lungs clear to auscultation Cardiovascular: Rate/Rhythm: regular rate and regular rhythm Heart Sounds: no murmur Extremities: normal capillary refill and + pedal edema (trace equal b/l) Gastrointestinal (Abdomen): Inspection/Auscultation: normal bowel sounds Percussion/Palpation: abdomen soft; abdomen nontender Neurologic: moves all extremities, awake and + confused Psychiatric: Orientation: alert and oriented to person; + not oriented to place and + not oriented to time Hallucinations: no visual hallucinations Results & Data Results & Data ([facility]) Vital Signs (Past 12 Hours) Vital Signs Temp Pulse Resp BP BP Pulse Ox 07/27/21 18:16 36.8 C 101 H 20 118/74 94 07/27/21 11:00 37.2 C 58 L 16 99/58 L 93 07/27/21 08:50 63 121/63 93 PG Care Time/CCT Total # of Minutes Spent Total Time Spent with Patient: Total time spent is greater than 50% in coordination of care (as documented) at patient's floor/unit and/or counseling patient: Coding Level of Care Code 30885 Subseq Hosp Care Lvl 2 Diagnoses Hypotension I95.9 Dehydration E86.0 CAD (coronary artery disease) I25.810 Associated angina: without angina Coronary Disease-Associated Artery/Lesion type: bypass graft [place] vs. transplanted heart: [place] heart Hypertension I10 Dyslipidemia E78.5 Acute kidney injury N17.9 CKD (chronic kidney disease), stage III N18.30 History of coronary artery bypass graft Z95.1 Pacemaker Z95.0 Hypothyroidism E03.9 Dementia F03.90 (1) CAD (coronary artery disease) Associated angina: without angina Coronary Disease-Associated Artery/Lesion type: bypass graft [place] vs. transplanted heart: [place] heart Qualified Code(s): I25.810 - Atherosclerosis of coronary artery bypass graft(s) without angina pectoris
[2021-07-28] MEDS: LEVOTHYROXINE SODIUM 50 MCG TABLET PO SCH (06:22)
[2021-07-28 06:43] LABS: Hematocrit (blood only) 34.1 % (42-52); Hemoglobin 11.7 g/dL (14.0-18.0); Mean Corpuscular Hemoglobin 32.5 pg (25-34); Mean Corpuscular Hgb Conc 34.3 g/dL (32-36); Mean Corpuscular Volume 94.7 fL (80-100); Mean Platelet Volume 10.4 fL (7.4-10.4); Platelet Count 123 K/uL (130-400); RDW Coefficient of Variation 13.2 % (11.5-14.5); RDW Standard Deviation 46.2 fL (36.4-46.3); White Blood Count 8.67 K/uL (4.8-10.8)
[2021-07-28 07:19] LABS: BUN Creatinine Ratio 18.8 (10-20); Calcium 8.8 mg/dl (8.5-10.1); Est GFR (Non-African American) 56.1 ml/min; Potassium 4.4 mmol/L (3.5-5.1)
[2021-07-28] MEDS: QUEtiapine FUMARATE 100 MG TABLET PO SCH (08:01)
[2021-07-28] MEDS: VITAMIN B COMPLEX TAB PO SCH (08:02)
[2021-07-28] MEDS: METOPROLOL SUCC 50MG EXT REL TAB PO SCH (08:02)
[2021-07-28] MEDS: FINASTERIDE 5 MG TAB PO SCH (08:02)
[2021-07-28] MEDS: ESCITALOPRAM OXALATE 10 MG TAB PO SCH (08:02)
[2021-07-28] MEDS: DOCUSATE SODIUM SYRUP 100 MG/10 ML UDC PO SCH (08:02)
[2021-07-28] MEDS: ASPIRIN 325 MG ECTAB PO SCH (08:03)
[2021-07-28] MEDS: DIVALPROEX SODIUM SPRINKLE/DEL-REL 125 MG CAP PO SCH ×2 (08:03→20:15)
[2021-07-28] MEDS: QUEtiapine FUMARATE 25 MG TABLET PO SCH ×2 (12:52→20:15)
[2021-07-28] MEDS: SIMVASTATIN 20 MG TAB PO SCH (20:14)
--- NOTE | 2021-07-28 21:07 | Hospitalist Progress Note ---
Date of Service July 28, 2021 Assessment & Plan (1) Hypotension: Plan: IMPROVED -- BP currently 115/73 Presented with hypotension, BP at [facility] 90/54 with Pox 90% Review of meds, recent new rx for HCTZ 25mg daily and has been taking since Tuesday with worsening PO intake and dehydration per during visits at [facility]. Has been NSR on monitor CT head without acute CVA CXR without pneumonia CTAP without acute process but does note 1.2 cm R renal pelvis calculi --> UA without evidence for infection. (known stone) ZOsyn x 1 in ER, discontinued. WBC wnl/no fever/no infectious etiology suspected BCx obtained in ER, no growth to date UA without evidence for infection TSH wnl Cortisol wnl 15.4 EKG without evidence for ischemia-- Trop 19.8 high sensitivity, repeat decreased Procal negative Seroquel could also be contributing but has kept mood stable and has been on this medication since May (100 + 50 + 50mg daily) LIAT, Cr up to 1.6 (BUN 42) with baseline closer to 1.2-1.3 * 2L IVF in ER, continued on NSS @ 100cc/hr through today. Additional 500cc to be provided as BUN/Cr improved to 32/1.12 * -->AVOID further HCTZ, would discontinue at discharge. Encourage low salt diet/compression stockings as able to tolerate for minimal LE pedal edema as reported by for reasoning to start such * May need to consider decreasing lisinopril (on hold still) but can resume once hydration back to baseline and repeat labs at [facility] Per , had been ambulatory at [facility] * --> Asked PT to see patient, did not do well. Alerted CM, will see if [facility] able to accommodate in skilled portion with transition back to Memory Unit. Possible discharge on 10/27 Monitor overnight but hopeful to return to [facility] per as soon as medically stable (2) Dehydration: Plan: IMPROVED 2nd to poor PO intake over past week/HCTZ use IVF ordered, d/c HCTZ, continuing to hold lisinopril. Cautious in resuming lisinopril and will need monitoring of labs/BP to ensure hydration once resumed and kidney function remains stable Monitor (3) CAD (coronary artery disease): Plan: hx CAD, s/p CABG x 4 in 2019 Typically on metoprolol, lisinopril but will hold these due to hypotension and resume when able/Cr improved --> Resuming metoprolol for today as BPs improved to 128/79 but holding diuretics Follows locally with Dr Fregoso/Dr Zabala -- outpt f/u (4) Hypertension: Plan: Now with hypotension as above Holding BP medications, resume metoprolol for CAD but hold diuretics --> Consider resuming lisinopril tomorrow vs Tuesday and consider at decreased dose to prevent dehydration Monitor (5) Dyslipidemia: Plan: continue statin (6) Acute kidney injury: Plan: acute kidney injury on CKD IVF provided as above and Cr imprvoed to baseline, still slightly dehydrated on exam and additional 500cc IVF to be provided D/C HCTZ in outpatient setting, consider decreased lisinopril but would hold off resuming for now as outlined improving creatinine. (7) CKD (chronic kidney disease), stage III: Plan: liat on ckd on admission (8) History of coronary artery bypass graft: Plan: noted, 2019. 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 Could also be contributing but has been on this dosing since May without issue and will continue Did get dose of Ativan x 1 in ER, would avoid further dosing if possible in elderly patient with dementia TSH, B12 wnl Melatonin HS ordered Could use low dose ativan if needed for agitation but would avoid in demented patient 1;1 vs Q15m checks for safety Plan: continued inpatient stay but hopeful to return back to [facility] tomorrow -- SNF vs Memory unit pending ability to accept based on PT eval Admission and Anticipated Discharge Date Admission Date: July 27, 2021 Subjective Patient remains confused. Review of Systems Review of Systems: Unobtainable due to cognitive status Physical Exam Physical Exam: Constitutional: well developed; + not well nourished and no acute distress Eyes: + anicteric sclerae; normal pupil size Respiratory: normal respiratory effort, lungs clear to auscultation Cardiovascular: Rate/Rhythm: regular rate and regular rhythm Heart Sounds: no murmur Extremities: normal capillary refill and + pedal edema (trace equal b/l) Gastrointestinal (Abdomen): Inspection/Auscultation: normal bowel sounds Percussion/Palpation: abdomen soft; abdomen nontender Neurologic: moves all extremities, awake and + confused Psychiatric: Orientation: alert and oriented to person; + not oriented to place and + not oriented to time Hallucinations: no visual hallucinations Results & Data Results & Data ([facility]) Vital Signs (Past 12 Hours) Vital Signs Temp Pulse Pulse Resp BP Pulse Ox 07/28/21 15:26 36.1 C L 60 20 115/73 98 07/28/21 14:54 35.7 C L 62 22 112/65 94 PG Care Time/CCT Total # of Minutes Spent Total Time Spent with Patient: Total time spent is greater than 50% in coordination of care (as documented) at patient's floor/unit and/or counseling patient: Coding Level of Care Code 95920 Subseq Hosp Care Lvl 2 Diagnoses Hypotension I95.9 Dehydration E86.0 CAD (coronary artery disease) I25.810 Associated angina: without angina Coronary Disease-Associated Artery/Lesion type: bypass graft [place] vs. transplanted heart: [place] heart Hypertension I10 Dyslipidemia E78.5 Acute kidney injury N17.9 CKD (chronic kidney disease), stage III N18.30 History of coronary artery bypass graft Z95.1 Pacemaker Z95.0 Hypothyroidism E03.9 Dementia F03.90 (1) CAD (coronary artery disease) Associated angina: without angina Coronary Disease-Associated Artery/Lesion type: bypass graft [place] vs. transplanted heart: [place] heart Qualified Code(s): I25.810 - Atherosclerosis of coronary artery bypass graft(s) without angina pectoris
[2021-07-29] MEDS: LEVOTHYROXINE SODIUM 50 MCG TABLET PO SCH (06:11)
[2021-07-29] MEDS: DIVALPROEX SODIUM SPRINKLE/DEL-REL 125 MG CAP PO SCH ×2 (08:10→09:53)
[2021-07-29] MEDS: QUEtiapine FUMARATE 100 MG TABLET PO SCH ×2 (08:11→09:55)
[2021-07-29] MEDS: ASPIRIN 325 MG ECTAB PO SCH ×2 (08:11→09:52)
[2021-07-29] MEDS: ESCITALOPRAM OXALATE 10 MG TAB PO SCH ×2 (08:11→09:53)
[2021-07-29] MEDS: VITAMIN B COMPLEX TAB PO SCH ×2 (08:12→09:56)
[2021-07-29] MEDS: FINASTERIDE 5 MG TAB PO SCH ×2 (08:12→09:54)
[2021-07-29] MEDS: DOCUSATE SODIUM SYRUP 100 MG/10 ML UDC PO SCH ×2 (08:13→09:53)
[2021-07-29] MEDS: METOPROLOL SUCC 50MG EXT REL TAB PO SCH ×2 (08:17→09:54)
[2021-07-29] MEDS: QUEtiapine FUMARATE 25 MG TABLET PO SCH (12:03)
--- NOTE | 2021-08-04 16:28 | Discharge Summary ---
Date of Service July 29, 2021 Principal Diagnosis hypotension Discharge Exam Constitutional: well developed; + not well nourished and no acute distress Eyes: + anicteric sclerae; normal pupil size Respiratory: normal respiratory effort, lungs clear to auscultation Cardiovascular: Rate/Rhythm: regular rate and regular rhythm Heart Sounds: no murmur Extremities: normal capillary refill and + pedal edema (trace equal b/l) Gastrointestinal (Abdomen): Inspection/Auscultation: normal bowel sounds Percussion/Palpation: abdomen soft; abdomen nontender Neurologic: moves all extremities, awake and + confused Psychiatric: Orientation: alert and oriented to person; + not oriented to place and + not oriented to time Hallucinations: no visual hallucinations Discharge Data Allergies Allergy/AdvReac Type Severity Reaction Status Date / Time No Known Allergies Allergy Verified 07/25/21 12:18 Consultations 07/25/21 14:30 ED Decision to Admit Stat Ordered Studies 07/25/21 10:39 CT abd pelvis wo con Stat CT head/brain wo con Stat Hospital Course (1) Hypotension: IMPROVED -- BP currently 115/73 Presented with hypotension, BP at [facility] 90/54 with Pox 90% Review of meds, recent new rx for HCTZ 25mg daily and has been taking since Tuesday with worsening PO intake and dehydration per during visits at [facility]. Has been NSR on monitor CT head without acute CVA CXR without pneumonia CTAP without acute process but does note 1.2 cm R renal pelvis calculi --> UA without evidence for infection. (known stone) ZOsyn x 1 in ER, discontinued. WBC wnl/no fever/no infectious etiology suspected BCx obtained in ER, no growth to date UA without evidence for infection TSH wnl Cortisol wnl 15.4 EKG without evidence for ischemia-- Trop 19.8 high sensitivity, repeat decreased Procal negative Seroquel could also be contributing but has kept mood stable and has been on this medication since May (100 + 50 + 50mg daily) LIAT, Cr up to 1.6 (BUN 42) with baseline closer to 1.2-1.3 * 2L IVF in ER, continued on NSS @ 100cc/hr through today. Additional 500cc to be provided as BUN/Cr improved to 32/1.12 * -->AVOID further HCTZ, would discontinue at discharge. Encourage low salt diet/compression stockings as able to tolerate for minimal LE pedal edema as reported by for reasoning to start such * May need to consider decreasing lisinopril (on hold still) but can resume once hydration back to baseline and repeat labs at [facility] Per , had been ambulatory at [facility] * --> Asked PT to see patient, did not do well. Alerted CM, will see if [facility] able to accommodate in skilled portion with transition back to Memory Unit. Monitor overnight but hopeful to return to [facility] per as soon as medically stable (2) Dehydration: IMPROVED 2nd to poor PO intake over past week/HCTZ use IVF ordered, d/c HCTZ, continuing to hold lisinopril. Cautious in resuming lisinopril and will need monitoring of labs/BP to ensure hydration once resumed and kidney function remains stable Monitor (3) CAD (coronary artery disease): hx CAD, s/p CABG x 4 in 2019 Typically on metoprolol, lisinopril but will hold these due to hypotension and resume when able/Cr improved --> Resuming metoprolol for today as BPs improved to 128/79 but holding diuretics Follows locally with Dr Fregoso/Dr Zabala -- outpt f/u (4) Hypertension: Now with hypotension as above Holding BP medications, resume metoprolol for CAD but hold diuretics --> Consider resuming lisinopril tomorrow vs Tuesday and consider at decreased dose to prevent dehydration Monitor (5) Dyslipidemia: continue statin (6) Acute kidney injury: acute kidney injury on CKD IVF provided as above and Cr imprvoed to baseline, still slightly dehydrated on exam and additional 500cc IVF to be provided D/C HCTZ in outpatient setting, consider decreased lisinopril but would hold off resuming for now as outlined improving creatinine. (7) CKD (chronic kidney disease), stage III: liat on ckd on admission (8) History of coronary artery bypass graft: noted, 2019. see CAD (9) Pacemaker: 2nd to heart block follows with Dr Zabala pacer interrogation ordered (10) Hypothyroidism: TSH wnl continue home levothyroxine 50mcg daily (11) Dementia: from [facility] Memory unit Continues on lexaprol, seroquel, depakote BID --> Takes 100mg seroquel in AM, 50mg around lunch, and 50mg before bed. Could also be contributing but has been on this dosing since May without issue and will continue Did get dose of Ativan x 1 in ER, would avoid further dosing if possible in elderly patient with dementia TSH, B12 wnl Melatonin HS ordered Could use low dose ativan if needed for agitation but would avoid in demented patient 1;1 vs Q15m checks for safety Total Time Total Time Spent Total Time Spent (In Minutes): 31 Discharge Plan Discharge Items Patient Disposition: Transfer Detention Fac Reason For Visit: HYPOTENSION, UNRESPONSIVE Discharge Diagnosis: Hypotension, Dehydration Condition on Discharge: Good Goals: You have been hospitalized for an acute medical problem. During your stay at [facility], we have made an effort to correct the problem that brought you to the hospital while keeping you as comfortable as possible. Medications were used to bring your condition under control and your discharge instructions will include directions for any medications you should take after leaving the hospital. Please make sure you see your Primary Care Provider as part of your follow up plan. Activity: Resume your previous activity Non-emergency contact: Primary Care Provider Call non-emergency contact if: you have any medication questions Follow-up/Referrals: Zakia Lundberg Linden [Primary Care Provider] - Diet: Heart Healthy Addtl Attending Provider Instructions: You have been hospitalized for episode of unresponsiveness and hypotension. CT of the head was NEGATIVE for stroke. Chest xray NEGATIVE for pneumonia CTAP showed stable 1.2cm renal stone, no obstructions, no bowel thickening. Does show some stool, and should encourage bowel regimen at home. Urine analysis did not show evidence for infection. Blood cultures were drawn, but no growth. You did get a dose of antibiotics in the ER, but no infectious cause was found, no elevated white count and no fevers and these were discontinued. This is felt to be related to recent blood pressure medication used for lower extremity swelling called hydrochlorothiazide which caused worsening dehydration and acute kidney injury from this. This HYDROCHLOROTHIAZIDE medication has been STOPPED during inpatient stay and you have been provided IV hydration. If it remains elevated, you may resume lisnopril at a lowe dose. You should attempt to keep legs elevated to prevent swelling, adhere to low salt diet, and use compression stockings for swelling. You should follow up with PCP in the next 7-10 days to monitor progress. Please return to the ER for any continued hypotension, increased confusion or for any other symptoms concerning for you. Take care! Pending Studies at Discharge: Yes Studies:: Blood cultures Stand-Alone Forms: My [facility] Skilled Items Patient informed of condition?: Yes DNR: No Discharge Level of Care: Other Communicable Disease: No Discharge Prognosis: Stable Lines: None Urinary Catheter: No Medications and DC Order Prescriptions: Continued nitroglycerin 0.4 mg tablet, sublingual 0.4 mg SL .COMPLEX PRN (Reason: Chest Pain) Qty: 25 RF: 5 simvastatin 20 mg tablet 20 mg PO QPM Qty: 90 RF: 3 metoprolol succinate 100 mg tablet extended release 24 hr 100 mg PO QAM Qty: 90 RF: 3 cholecalciferol (vitamin D3) 2,000 unit capsule 2,000 units PO QAM RF: 0 finasteride 5 mg tablet 5 mg PO DAILY Qty: 90 RF: 3 Centrum Silver Men 300-600-300 mcg tablet 1 tab PO DAILY RF: 0 omega [id number] oil [Fish Oil] 1,000 mg (120 mg-180 mg) Capsule 3 cap PO QAM RF: 0 aspirin 325 mg tablet 650 mg PO QAM RF: 0 vitamin B complex Capsule 1 cap PO QAM RF: 0 chlorpheniramine maleate 4 mg Tablet 4 mg PO DAILY PRN (Reason: Allergy Symptoms) RF: 0 docusate sodium 50 mg Capsule 50 mg PO DAILY RF: 0 quetiapine [Seroquel] 100 mg Tablet 100 mg PO DAILY RF: 0 divalproex 125 mg capsule, delayed rel sprinkle 250 mg PO BID RF: 0 escitalopram oxalate 10 mg tablet 10 mg PO DAILY RF: 0 Saccharomyces boulardii 250 mg Capsule 0 mg PO DAILY RF: 0 quetiapine 50 mg tablet 50 mg PO BID RF: 0 levothyroxine 50 mcg tablet 50 mcg PO DAILYBB RF: 0 Discontinued lisinopril 40 mg tablet 40 mg PO QAM Qty: 90 RF: 3 Discharge Orders: Discharge Order (Routine); Ordered 07/29/21 Ordered By: Jax Barrett Admission Data Admit Date/Time: 07/27/21 09:40 Attending Provider: Jax Barrett Admit Provider: Jax Barrett Primary Care Provider: Zakia Lundberg Linden Other Providers: Zakia Lundberg Linden ; Jax Barrett Other Interventions: Discharge Summary Assessment (RN) Last Done: 07/29/21 13:30 Coding Level of Care Code D/C DAY MANAGEMENT >30 MINS Diagnoses Hypotension I95.9 Dehydration E86.0 CAD (coronary artery disease) I25.810 Coronary Disease-Associated Artery/Lesion type: bypass graft [place] vs. transplanted heart: [place] heart Associated angina: without angina Hypertension I10 Dyslipidemia E78.5 Acute kidney injury N17.9 CKD (chronic kidney disease), stage III N18.30 History of coronary artery bypass graft Z95.1 Pacemaker Z95.0 Hypothyroidism E03.9 Dementia F03.90
== END 2021-07-29 14:28 | DRG 312 ==
LOC: ED 09:54 → 2N 09:54

== ENCOUNTER 2023-02-09 12:12 | Inpatient (IN) ==
--- NOTE | 2023-02-09 13:15 | Emergency Department Note ---
Impression & Plan Acute exacerbation of CHF (congestive heart failure), Lethargic, Non-ST elevation RI (NSTEMI) ED Provider Note HISTORY OF PRESENT ILLNESS: Patient is an 87-year-old male presenting with lethargy. Family provides history. Patient resides at [facility] where he reportedly has been significantly more lethargic over the last week. He is now sleeping almost the entire day away. He is nonverbal secondary to his history of dementia. He has a history of CHF and [facility] yesterday reportedly had a BNP of over 3000. He was started on 2 L supplemental oxygen yesterday secondary to hypoxia. He is not normally on any oxygen. Family reports that he did get one-time dose of Lasix yesterday at [facility]. Family denies the patient having any recent fevers. Reports that though the patient is nonverbal and demented, he is normally much more interactive. ROS: as above PHYSICAL EXAM: Constitutional: Patient appears in no acute distress. HENT: Head: Normocephalic and atraumatic. Eyes: EOMI, PERRL Mouth/Throat: Mucous membranes moist. Neck: Trachea midline. Neck supple. Cardiovascular: RRR, No murmurs, rubs or gallops. Intact distal pulses. Pulmonary/Chest: No respiratory distress. Breath sounds clear and equal bilaterally. No wheezes or rales. Abdominal: Abdomen soft, no tenderness, rebound or guarding. Musculoskeletal: No tenderness or deformity noted. Trace edema of bilateral ankles Skin: Warm and dry. No rash, erythema, pallor or cyanosis Neurological: Patient is lethargic and difficult to arouse. MDM: - Vitals signs stable. - History obtained via patient's family, given patient's dementia. Patient presents with lethargy. Family reports that the patient has been more lethargic over the last week. States he is now sleeping most of the day. He has a history of CHF and reportedly had a BNP at the facility of over 3000 yesterday. He was given Lasix yesterday per his family member. States the patient seems to be more confused and more lethargic than normal. No recent fevers - Chronic conditions affecting care: CKD; CHF; dementia; hypothyroidism; HTN; HLD - Differential diagnoses include, but are not limited to: UTI; pneumonia; hypercarbia; CHF exacerbation; ACS - Order placed for continuous cardiac monitoring. At this time, monitor showed rate of 62 bpm with paced rhythm, per my interpretation. - External medical records reviewed. EMS run sheet reviewed. Patient vitally stable in route. - EKG reviewed by myself showed AV paced rhythm - Laboratory workup interpreted by myself showed normal WBC; hypernatremia (Na 148); elevated BUN (41); elevated troponin (27.3); elevate BNP (1630) - CXR negative for pneumonia, per my interpretation - COVID/flu/RSV negative - VBG normal. - Patient given 80 mg IV lasix in ER. - Discussion was had with manager social work about patient's case and need for admission - Hospitalist consulted for admission - [facility] 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 Acute hypotension CAD (coronary artery disease) Cellulitis of left hand CKD (chronic kidney disease), stage III Cognitive change Encounter for pre-operative examination Hyperlipidemia Hypertension Hypothyroidism Kidney stone Kyphoscoliosis Multiple pulmonary nodules found on xray and no problems just watch Pacemaker 10/2018 -- [employer] follows dr simpson last check - 02/2019 Raynauds syndrome MILD (EFFECTING FINGERS) Short-term memory loss Sinus bradycardia Surgical History Blocked tear duct repair of of tear duct History of cardiac cath 02/2002 and then needed cabg x 4 History of cataract surgery RT/ LT History of colonoscopy History of coronary artery bypass graft 2001/CABG 4 VESSELS done at [facility] History of inguinal hernia repair History of tonsillectomy Hx of hernia repair repair of inguinal hernia Family History Sister Family history of diabetes mellitus Hypertension Family/Other Family history of diabetes mellitus Father Acute myocardial infarction Denies family history of Ovarian cancer Prostate cancer Myocardial infarction Breast cancer Colorectal cancer Social History Smoking Status: Never smoker Second Hand Exposure: No; Do You Dip or Chew Tobacco: No; Hx Alcohol Use: No Hx Substance Use: No Preferred Language: Maltese Communication Ability: Impaired Visual Impairment: Limited Hearing Ability: Normal Director Of [employer] Required: No Beliefs That Will Affect Care: None marital status: Current Living Situation: Other Current Living Situation Comment: memory care at [facility] current occupational status: retired How many Children do You have: 2 Feels Safe at Home: Yes Childhood Exposure to Second-Hand Smoke: No caffeine: Yes (coffee and sometimes tea ) Dental Care, Regularly: Yes Physical Activity Frequency: Daily Physical Activity Frequency Comment: walks 40 mins a day Seatbelt Use: always Sunscreen Use: Yes Assistive Devices: None Allergies Allergies Allergy/AdvReac Type Severity Reaction Status Date / Time No Known Allergies Allergy Verified 08/02/22 12:00 Home Meds Home Medications Medication Instructions Recorded Confirmed Saccharomyces boulardii 250 mg 0 mg PO DAILY 07/25/21 08/02/22 capsule docusate sodium 50 mg capsule 50 mg PO DAILY 07/25/21 08/02/22 escitalopram oxalate 10 mg tablet 15 mg PO DAILY 10/16/21 08/02/22 sennosides 8.6 mg tablet 8.6 mg PO BID PRN constipation 10/16/21 08/02/22 cholecalciferol (vitamin D3) 25 50 mcg PO QAM 10/20/21 08/02/22 mcg (1,000 unit) tablet (Vitamin D3) risperidone 0.25 mg tablet 0.25 mg PO TID 02/22/22 08/02/22 acetaminophen 325 mg tablet 650 mg PO QID PRN 08/02/22 08/02/22 cyanocobalamin (vitamin B-12) 50 50 mcg PO DAILY 08/02/22 08/02/22 mcg tablet doxazosin 1 mg tablet 1 mg PO DAILY 08/02/22 08/02/22 metoprolol succinate 100 mg 50 mg PO BID 08/02/22 tablet,extended release 24 hr multivitamin (Multiple Vitamins 1 tab PO DAILY 08/02/22 08/02/22 tablet) simvastatin 20 mg tablet 20 mg PO DAILY 08/02/22 08/02/22 aspirin 81 mg tablet,delayed 81 mg PO DAILY 12/23/22 release (Adult Aspirin Regimen) Previous Rx's Medication Instructions Recorded nitroglycerin 0.4 mg sublingual 0.4 mg sublingual .COMPLEX PRN 10/20/20 tablet Chest Pain #25 tabs Results & Data (ED) Vital Signs Vital Signs - 24 hr 02/09/23 12:26 02/09/23 12:34 02/09/23 13:29 Temperature 36.5 C Temperature Source Temporal Artery Scan Pulse Rate 60 65 Pulse Rate [Apical] 69 Pulse Rhythm Regular Pulse Strength Normal Respiratory Rate 22 20 Respiratory Effort / Characteristics Non-Labored Respiratory Depth Normal Blood Pressure 118/81 Blood Pressure [Right Arm] 113/72 Blood Pressure Mean 93 Blood Pressure Mean [Right Arm] 85 Blood Pressure Position Sitting Pulse Oximetry 96 95 Oxygen Delivery Method Room Air Nasal Cannula Oxygen Flow Rate 2 Sepsis Recent Fever Within 48 Hours No Sepsis New/Unexplained Change in Mental Status Yes Sepsis Action Taken by Nursing No Action Required 02/09/23 13:29 Temperature Temperature Source Pulse Rate 62 Pulse Rate [Apical] Pulse Rhythm Regular Pulse Strength Respiratory Rate 20 Respiratory Effort / Characteristics Respiratory Depth Blood Pressure Blood Pressure [Right Arm] Blood Pressure Mean Blood Pressure Mean [Right Arm] Blood Pressure Position Pulse Oximetry 100 Oxygen Delivery Method Nasal Cannula Oxygen Flow Rate 2 Sepsis Recent Fever Within 48 Hours Sepsis New/Unexplained Change in Mental Status Sepsis Action Taken by Nursing Laboratory Data 02/09/23 13:20 02/09/23 13:20 Lab Results 02/09/23 02/09/23 02/09/23 Range/Units 13:20 14:37 Unknown WBC 6.67 (4.8-10.8) K/ul RBC 3.43 L (4.70-6.10) M/uL Hgb 11.1 L (14.0-18.0) g/dl Hct 34.3 L (42.0-52.0) % MCV 100.0 (80.0-100.0) fL MCH 32.4 (25.0-34.0) pg MCHC 32.4 (32.0-36.0) g/dL RDW Std Deviation 55.6 H (36.4-46.3) fL RDW Coeff of Layo 15.4 H (11.5-14.5) % Plt Count 171 (130-400) K/uL MPV 10.5 (9.4-12.4) fL Immature Gran % (Auto) 0.4 % Neut % (Auto) 64.8 % Lymph % (Auto) 20.2 % [place] % (Auto) 10.6 % Eos % (Auto) 3.4 % Baso % (Auto) 0.6 % Neut # (Auto) 4.31 (1.40-6.50) K/uL Lymph # (Auto) 1.35 (1.20-3.40) K/uL [place] # (Auto) 0.71 H (0.11-0.59) K/uL Eos # (Auto) 0.23 (0.00-0.50) K/uL Baso # (Auto) 0.04 (0.00-0.20) K/uL Immature Gran # (Auto) 0.03 (0.01-0.20) K/uL VBG pH 7.40 (7.36-7.41) VBG pCO2 48 (38-50) mmHg VBG pO2 20 mmHg VBG HCO3 30 mmol/L VBG O2 Saturation < 60.0 % VBG Base Excess 4.0 mEq/L Sodium 148 H (136-145) mmol/L Potassium TNP Chloride 116 H (98-107) mmol/L Carbon Dioxide 28 (21-32) mmol/L Anion Gap 4 (3-11) BUN 41 H (6-23) mg/dl Creatinine 1.29 (0.6-1.4) mg/dl Est Cr Clr Drug Dosing 40.3 ml/min Est GFR ( Amer) 57.4 ml/min Est GFR (Non-Af Amer) 49.5 ml/min BUN/Creatinine Ratio 31.8 H (10-20) Glucose 127 H (70-99(Fasting)) mg/dl Calcium 8.9 (8.6-10.3) mg/dl Magnesium 2.2 (1.7-2.4) mg/dl Total Bilirubin 1.3 H (0.2-1.0) mg/dl AST TNP ALT 37 (7-52) U/L Alkaline Phosphatase 106 H (34-104) U/L Troponin I High Sens 27.3 H (0-20) pg/ml B-Natriuretic Peptide 1630 H (0-100) pg/ml Total Protein 6.2 (6.0-8.3) gm/dl Albumin 3.3 L (3.4-5.0) gm/dl Globulin 2.9 (2.5-4.0) gm/dl Albumin/Globulin Ratio 1.1 (0.9-2) TSH 4.211 (0.300-4.500) uIu/ml SARS-CoV-2 (PCR) NEGATIVE (Negative) Administered Medications Discontinued Medications Furosemide (Furosemide 40 Mg/4 Ml Vial) 80 mg IV ONE ONE Stop: 02/09/23 14:25 Last Admin: 02/09/23 14:40 Dose: 80 mg Documented By: ADDY Imaging Data Radiologist's Impression: Chest X-Ray 02/09/23 12:51 SINGLE VIEW CHEST CLINICAL HISTORY: Generalized weakness. FINDINGS: An AP, portable, upright chest radiograph is compared to study dated 03/10/2022 and correlated with chest CT dated 09/04/2012. The examination is degraded by portable technique and patient rotation. The patient's head partially obscures the apices. The patient is status post midline sternotomy. A 2-lead cardiac pacemaker is unchanged in position and partially obscures the left upper chest. The heart is enlarged noting atherosclerotic calcification of the thoracic aorta. The pulmonary vasculature is noncongested. Chronic interstitial thickening similar to previous. Airspace opacities are seen at the left lung base. No large pleural effusion or pneumothorax is identified. The skeletal structures are osteopenic. There are chronic/healed right-sided rib fractures. Degenerative change is noted in the shoulders. IMPRESSION: 1. Cardiomegaly and cardiac pacemaker without radiographic evidence of congestive failure. 2. Airspace opacities at the left lung base could represent scarring/atelectasis versus pneumonia/aspiration pneumonitis. Clinical correlation will be required and radiographic follow-up to resolution is recommended. Follow-up imaging should include both PA and lateral views. ACT 112: Negative or not required by law. Electronically signed by: Gee Dawson M.D. 02/09/2023 1:33 PM Discharge Plan Visit Data Chief Complaint: Lethargic ED Provider: Heather Briseno Discharge Problem: Acute exacerbation of CHF (congestive heart failure), Lethargic, Non-ST elevation RI (NSTEMI) Forms Stand Alone Forms: [employer] Prescriptions Prescriptions: No Action nitroglycerin 0.4 mg tablet, sublingual 0.4 mg SL .COMPLEX PRN (Reason: Chest Pain) Qty: 25 5RF Rx Instructions: 0.4 mg SL Dissolve 1 tablet under tongue as needed for chest pain PRN; aspirin [Adult Aspirin Regimen] 81 mg tablet,delayed release (DR/EC) 81 mg PO DAILY sennosides 8.6 mg tablet 8.6 mg PO BID PRN (Reason: constipation) doxazosin 1 mg tablet 1 mg PO DAILY metoprolol succinate 100 mg tablet extended release 24 hr 50 mg PO BID multivitamin [Multiple Vitamins] Tablet 1 tab PO DAILY simvastatin 20 mg tablet 20 mg PO DAILY cyanocobalamin (vitamin B-12) 50 mcg tablet 50 mcg PO DAILY acetaminophen 325 mg tablet 650 mg PO QID PRN risperidone 0.25 mg tablet 0.25 mg PO TID docusate sodium 50 mg Capsule 50 mg PO DAILY Saccharomyces boulardii 250 mg Capsule 0 mg PO DAILY escitalopram oxalate 10 mg tablet 15 mg PO DAILY cholecalciferol (vitamin D3) [Vitamin D3] 25 mcg (1,000 unit) Tablet 50 mcg PO QAM Referrals Referrals: Zakia Lundberg [place] [Primary Care Provider] -
--- NOTE | 2023-02-09 13:34 | XRay Report ---
SINGLE VIEW CHEST CLINICAL HISTORY: Generalized weakness. FINDINGS: An AP, portable, upright chest radiograph is compared to study dated 03/10/2022 and correlat ed with chest CT dated 09/04/2012. The examination is degraded by portable technique and patient rotati on. The patient's head partially obscures the apices. The patient is status post midline sternotomy. A 2-lead cardiac pacemaker is unchanged in position and partially obscures the left upper chest. The heart is enlarged noting atherosclerotic calcification of the thoracic aorta. The pulmonary vasculat ure is noncongested. Chronic interstitial thickening similar to previous. Airspace opacities are seen at the left lung base. No large pleural effusion or pneumothorax is identified. The skeletal structu res are osteopenic. There are chronic/healed right-sided rib fractures. Degenerative change is noted in the shoulders. IMPRESSION: 1. Cardiomegaly and cardiac pacemaker without radiographic evidence of congestive failure. 2. Airspace opacities at the left lung base could represent scarring/atelectasis versus pneumonia/asp iration pneumonitis. Clinical correlation will be required and radiographic follow-up to resolution i s recommended. Follow-up imaging should include both PA and lateral views. ACT 112: Negative or not required by law. Electronically signed by: Gee Dawson M.D. 02/09/2023 1:33 PM
[2023-02-09 13:45] LABS: Basophils # (auto) 0.04 K/uL (0.00-0.20); Basophils % (auto) 0.6 %; Eosinophils # (auto) 0.23 K/uL (0.00-0.50); Eosinophils % (auto) 3.4 %; Hematocrit (blood only) 34.3 % (42.0-52.0); Hemoglobin 11.1 g/dl (14.0-18.0); Immature Granulocytes # (auto) 0.03 K/uL (0.01-0.20); Immature Granulocytes % (auto) 0.4 %; Lymphocytes # (auto) 1.35 K/uL (1.20-3.40); Lymphocytes % (auto) 20.2 %; Mean Corpuscular Hemoglobin 32.4 pg (25.0-34.0); Mean Corpuscular Hgb Conc 32.4 g/dL (32.0-36.0); Mean Platelet Volume 10.5 fL (9.4-12.4); Monocytes # (auto) 0.71 K/uL (0.11-0.59); Monocytes % (auto) 10.6 %; Neutrophils # (auto) 4.31 K/uL (1.40-6.50); Neutrophils % (auto) 64.8 %; Platelet Count 171 K/uL (130-400); RDW Coefficient of Variation 15.4 % (11.5-14.5); RDW Standard Deviation 55.6 fL (36.4-46.3); Red Blood Count 3.43 M/uL (4.70-6.10); White Blood Count 6.67 K/ul (4.8-10.8)
[2023-02-09 14:16] LABS: Alanine Aminotransferase 37 U/L (7-52); Albumin Globulin Ratio 1.1 (0.9-2); Albumin Level 3.3 gm/dl (3.4-5.0); Alkaline Phosphatase 106 U/L (34-104); Anion Gap 4 (3-11); BUN Creatinine Ratio 31.8 (10-20); Bilirubin,Total 1.3 mg/dl (0.2-1.0); Blood Urea Nitrogen 41 mg/dl (6-23); Calcium 8.9 mg/dl (8.6-10.3); Carbon Dioxide 28 mmol/L (21-32); Chloride 116 mmol/L (98-107); Creatinine Clr Calc Pharmacy 40.3 ml/min; Est GFR (African American) 57.4 ml/min; Est GFR (Non-African American) 49.5 ml/min; Globulin 2.9 gm/dl (2.5-4.0); Glucose 127 mg/dl (70-99(Fasting)); Magnesium 2.2 mg/dl (1.7-2.4); Sodium 148 mmol/L (136-145); Total Protein 6.2 gm/dl (6.0-8.3); Troponin I High Sensitivity 27.3 pg/ml (0-20)
[2023-02-09] MEDS ORDERED: FUROSEMIDE 40 MG/4 ML VIAL IV ONE (14:24)
[2023-02-09 14:28] LABS: Thyroid Stimulating Hormone 4.211 uIu/ml (0.300-4.500)
[2023-02-09 14:44] LABS: HCO3 VBG 30 mmol/L; Oxygen Saturation VBG < 60.0 %; PCO2 VBG 48 mmHg (38-50); PO2 VBG 20 mmHg
[2023-02-09 15:07] LABS: Potassium 3.9 mmol/L (3.5-5.1)
[2023-02-09 15:09] LABS: Appearance Urine Clear (Clear); Bacteria Urine Automated Negative (Negative); Bilirubin Urine Negative (Negative); Blood Urine Negative (Negative); Cast Urine Automated 0 /lpf (0-5); Color Urine Dark Yellow; Epithelial Cell Urine Auto 0-5 /lpf (0-5); Glucose Urine UA Negative (Negative); Ketones Urine Trace (Negative); Leukocyte Esterase Urine Negative (Negative); Nitrite Urine Negative (Negative); Protein Urine Trace (Negative); RBC Urine Automated 0-4 /hpf (0-4); Specific Gravity Urine 1.024 (1.000-1.030); Urobilinogen Urine Negative (Negative)
--- NOTE | 2023-02-09 15:28 | History & Physical Report ---
Date of Service February 09, 2023 Assessment & Plan (1) Acute respiratory failure with hypoxia: Plan: Acute hypoxic respiratory failure,? Due to CHF ?due to CHF managed as below. BNP greater than 4000 as outpatient, gradually improving. Not overtly overloaded on exam and x-ray without pulmonary edema. +ankle edema improving Afebrile, no upper respiratory symptoms ? Sleep apnea, while sleeping patient does have brief periods of hypoxia to 80s followed by increased deep breathing with normalization, and SpO2 normal while patient is awake. CPAP hsprn. (2) Acute exacerbation of CHF (congestive heart failure): Plan: Hypoxic RF, Increased Fatigue, Lethargy.? CHF - With BNP >3000 at [facility], increased SoB, and 2L new O2 requirement. Suspect acute CHF - No echo available for review. History of CAD, no diuretics at baseline and no history of heart failure peripheral No fever, no leukocytosis. Low suspicion for pneumonia, follow fever curve. Antibiotics deferred 1+ pitting edema of the lower extremities bilaterally, lungs are clear at time of admission, no JVD Received 80 mg of Lasix while in the ER, strict ins and outs, catheter in place, additional scheduled Lasix deferred to clinical reevaluation and this is appearing near euvolemic on exam - No LIAT on admit CAD, pacemaker placement for bradycardia With history of CABG in 2019. Troponin mildly elevated suspect demand ischemia, trended. EKG paced rhythm. Interrogation pending Management of suspected CHF as noted Continue metoprolol (3) Goals of care, counseling/discussion: Plan: Patient with severe dementia. Nonverbal at baseline, on [facility] memory unit -Baseline status is nonverbal, and is able to take a few steps into wheelchair and sit wheeled around by family. Generally does not use nonverbal communication either, but does seem to brighten around family. Goal level of function is to be able to be in a wheelchair and around family. Discussed baseline decline and natural course of chronic dementia coupled with illnesses causing acute decline. Patient's reports that her, and his goals, are to reach a level of health where he was approximately 10 days ago, and she recognizes that his baseline will continue to decline. He is full code, and would want CPR/chest compressions/intubation at this time. Approximately 35 minutes was spent in discussion of patient's clinical condition, goals of care, and prognostication. Previously on Seroquel, this was discontinued. He is now on Risperdal and this was recently dose decreased to 0.25 mg at bedtime. Continue Lexapro (4) BPH loc w/o ur obs/LUTS: Plan: BPH with LUTS Doxazosin continued Bladder scan as needed - Woods inplace, light yellow urine on admit. (5) CKD (chronic kidney disease), stage III: Plan: No LIAT on admission Creatinine 1.21 on admission, near normal baseline (6) Dementia: Plan: - As noted Home risperidone nightly continued (7) Hypernatremia: Plan: With lower extremity edema, newly elevated BNP.? Relative free water deficit with elevated TBW. Improving w/ lasix, Trend daily. Plan Chronic stable issues: Hypothyroidism: Continue Synthroid. TSH normal on admit DVT prophylaxis: Heparin Diet: Heart healthy Disposition: PCU CODE STATUS: Full code History of Present Illness Primary Care Provider: [facility] Manuel is an 87-year-old male [facility] resident with progressive somnolence, lethargy, and declining functional status. Patient is nonverbal at baseline due to dementia, but has been progressively less responsive and more lethargic. He has no home oxygen requirement, and was started on 2 L home oxygen requirement and received 1 dose of Lasix 02/08 for suspected volume overload. On ER examination VBG is seven-point /, patient is mildly hypernatremic, creatinine is 1.29, BNP is elevated, troponin is mildly elevated. Chest x-ray does not show evidence of congestive failure, airspace opacities at left lung base with wide differential including scarring/atelectasis/aspiration/pneumonia. He does not have a leukocytosis and is afebrile. No reported cough. Chart review with weight ranging from 70-76 kg on average, admitting weight is 73.1 kg. EKG is AV dual paced rhythm Pt awakens to noxious stimuli, much more somnolent than baseline per family. Tamika --> BNP over 3,000. Remains over 1,000 in ER on 2L newly. Has had swelling in the legs and neck since January. Was never diagnosed with sleep apnea, but seems to have apneic pauses followed b y heavy breaths afterwards while sleeping. yesterday was the first day he needed oxygen, was significantly improved after this Baseline function is nonverbal, will take a few steps with family and generally is alert. Recently started sleeping most of the day and appears much more tired. No fevers. Medical History: Reviewed Medications: Reviewed Surgical History: Reviewed Family history: Reviewed Allergies: Reviewed Social History: REviewed Code Status: Full Code. See HPI palliative discussion Allergies Allergy/AdvReac Type Severity Reaction Status Date / Time No Known Allergies Allergy Verified 02/09/23 15:36 Home Medications Medication Instructions Recorded Confirmed Type Saccharomyces boulardii 250 mg 250 mg PO QAM 02/09/23 02/09/23 History capsule (Florastor) acetaminophen 325 mg tablet 650 mg PO Q4 PRN Fever Or Pain 02/09/23 02/09/23 History (Tylenol) aspirin 81 mg chewable tablet 81 mg PO QAM 02/09/23 02/09/23 History cholecalciferol (vitamin D3) 25 50 mcg PO DAILY 02/09/23 02/09/23 History mcg (1,000 unit) tablet (Vitamin D3) cyanocobalamin (vitamin B-12) 500 500 mcg PO DAILY 02/09/23 02/09/23 History mcg tablet (Vitamin B-12) docusate sodium 100 mg tablet 100 mg PO .Q24HRS PRN Constipation 02/09/23 History doxazosin 1 mg tablet 1 mg PO HS 02/09/23 02/09/23 History escitalopram oxalate 10 mg tablet 15 mg PO QAM 02/09/23 02/09/23 History levothyroxine 50 mcg tablet 50 mcg PO QAM 02/09/23 02/09/23 History metoprolol tartrate 50 mg tablet 50 mg PO BID 02/09/23 02/09/23 History multivitamin 1 tab PO DAILY 02/09/23 02/09/23 History nitroglycerin 0.4 mg sublingual 0.4 mg sublingual DIRECTED PRN 02/09/23 02/09/23 History tablet Chest Pain polyethylene glycol 3350 17 gram 17 g PO .Q3DAYS 02/09/23 02/09/23 History oral powder packet (Miralax) risperidone 0.25 mg tablet 0.25 mg PO HS 02/09/23 02/09/23 History sennosides 8.6 mg-docusate sodium 1 tab-cap PO AMHS 02/09/23 02/09/23 History 50 mg tablet (Senna-S) simvastatin 20 mg tablet 20 mg PO QPM 02/09/23 02/09/23 History 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 Acute hypotension CAD (coronary artery disease) Cellulitis of left hand CKD (chronic kidney disease), stage III Cognitive change Encounter for pre-operative examination Hyperlipidemia Hypertension Hypothyroidism Kidney stone Kyphoscoliosis Multiple pulmonary nodules found on xray and no problems just watch Pacemaker 10/2018 -- [employer] follows dr simpson last check - 02/2019 Raynauds syndrome MILD (EFFECTING FINGERS) Short-term memory loss Sinus bradycardia Surgical History Blocked tear duct repair of of tear duct History of cardiac cath 02/2002 and then needed cabg x 4 History of cataract surgery RT/ LT History of colonoscopy History of coronary artery bypass graft 2001/CABG 4 VESSELS done at [facility] History of inguinal hernia repair History of tonsillectomy Hx of hernia repair repair of inguinal hernia Family History Sister Family history of diabetes mellitus Hypertension Family/Other Family history of diabetes mellitus Father Acute myocardial infarction Denies family history of Ovarian cancer Prostate cancer Myocardial infarction Breast cancer Colorectal cancer Social History Smoking Status: Never smoker Second Hand Exposure: No; Do You Dip or Chew Tobacco: No; Hx Alcohol Use: No Hx Substance Use: No Preferred Language: Urdu Communication Ability: Impaired Visual Impairment: Limited Hearing Ability: Normal Project Landscape [employer] Required: No Beliefs That Will Affect Care: None marital status: Current Living Situation: Other Current Living Situation Comment: memory care at [facility] current occupational status: retired How many Children do You have: 2 Feels Safe at Home: Yes Childhood Exposure to Second-Hand Smoke: No caffeine: Yes (coffee and sometimes tea ) Dental Care, Regularly: Yes Physical Activity Frequency: Daily Physical Activity Frequency Comment: walks 40 mins a day Seatbelt Use: always Sunscreen Use: Yes Assistive Devices: None Results & Data Results & Data Vital Signs (Past 12 Hours) Vital Signs Temp Pulse Pulse Resp BP BP Pulse Ox 02/09/23 15:00 70 24 118/71 95 02/09/23 13:29 62 20 100 02/09/23 13:29 69 20 113/72 95 02/09/23 12:34 65 02/09/23 12:26 36.5 C 60 22 118/81 96 O2 Del Method O2 Flow Rate 02/09/23 15:00 Nasal Cannula 2 02/09/23 13:29 Nasal Cannula 2 02/09/23 13:29 Nasal Cannula 2 02/09/23 12:34 02/09/23 12:26 Room Air PG Care Time/CCT Total # of Minutes Spent Total Time Spent with Patient: Total time spent is greater than 50% in coordination of care (as documented) at patient's floor/unit and/or counseling patient: Coding Level of Care Code 79759 INT INP/OBS CARE 3/75MIN Diagnoses Acute respiratory failure with hypoxia J96.01 Acute on chronic congestive heart failure, unspecified heart failure type I50.9 Heart failure type: unspecified Goals of care, counseling/discussion Z71.89 BPH loc w/o ur obs/LUTS N40.0 CKD (chronic kidney disease), stage III N18.30 Severe dementia with other behavioral disturbance, unspecified dementia type F03.C18 Dementia type: unspecified type Dementia severity: severe Dementia behavioral or psychological symptom: with other behavioral disturbance Hypernatremia E87.0 (2) Acute exacerbation of CHF (congestive heart failure) Heart failure type: unspecified Qualified Code(s): I50.9 - Heart failure, unspecified (6) Dementia Dementia type: unspecified type Dementia severity: severe Dementia behavioral or psychological symptom: with other behavioral disturbance Qualified Code(s): F03.C18 - Unspecified dementia, severe, with other behavioral disturbance
[2023-02-09 15:49] LABS: Troponin I High Sensitivity 29.6 pg/ml (0-20)
--- NOTE | 2023-02-09 16:13 | Electrocardiogram Report ---
Test Reason : Blood Pressure : / mmHG Vent. Rate : 064 BPM Atrial Rate : 064 BPM P-R Int : 198 ms QRS Dur : 208 ms QT Int : 518 ms P-R-T Axes : 000 -81 098 degrees QTc Int : 534 ms AV dual-paced rhythm with occasional Premature ventricular complexes Abnormal ECG When compared with ECG of 10-MAR-2022 16:57, Premature ventricular complexes are now Present Vent. rate has decreased BY 4 BPM Confirmed by Rob Fregoso ([id number]) on 02/09/2023 4:13:16 PM Referred By: Confirmed By:Rob Fregoso
[2023-02-09] MEDS ORDERED: NITROGLYCERIN SL 0.4 MG/TAB TAB SL PRN (20:23)
[2023-02-09] MEDS ORDERED: ACETAMINOPHEN 325 MG TAB PO PRN (20:23)
[2023-02-09] MEDS: DOXAZOSIN MESYLATE 1 MG TAB PO SCH (21:22)
[2023-02-09] MEDS: SIMVASTATIN 20 MG TAB PO SCH (21:22)
[2023-02-09] MEDS: DOCUSATE SODIUM 100 MG CAP PO PRN (21:22)
[2023-02-09] MEDS: risperiDONE 0.5 MG TABLET PO SCH (21:22)
[2023-02-09] MEDS: HEPARIN SOD 5,000 UNIT/0.5 ML VIAL SQ SCH (21:22)
[2023-02-09] MEDS: METOPROLOL TARTRATE 50 MG TAB PO SCH (21:23)
[2023-02-09] MEDS: DOCUSATE SODIUM/SENNA 50/8.6MG TAB PO SCH (21:23)
[2023-02-10] MEDS: LEVOTHYROXINE SODIUM 50 MCG TABLET PO SCH (05:55)
[2023-02-10 06:49] LABS: Basophils # (auto) 0.04 K/uL (0.00-0.20); Basophils % (auto) 0.6 %; Eosinophils # (auto) 0.22 K/uL (0.00-0.50); Eosinophils % (auto) 3.1 %; Hematocrit (blood only) 35.2 % (42.0-52.0); Hemoglobin 11.5 g/dl (14.0-18.0); Immature Granulocytes # (auto) 0.04 K/uL (0.01-0.20); Immature Granulocytes % (auto) 0.6 %; Lymphocytes # (auto) 1.25 K/uL (1.20-3.40); Lymphocytes % (auto) 17.7 %; Mean Corpuscular Hemoglobin 32.3 pg (25.0-34.0); Mean Corpuscular Hgb Conc 32.7 g/dL (32.0-36.0); Mean Corpuscular Volume 98.9 fL (80.0-100.0); Mean Platelet Volume 10.2 fL (9.4-12.4); Monocytes # (auto) 0.84 K/uL (0.11-0.59); Monocytes % (auto) 11.9 %; Neutrophils # (auto) 4.69 K/uL (1.40-6.50); Neutrophils % (auto) 66.1 %; Platelet Count 170 K/uL (130-400); RDW Standard Deviation 53.8 fL (36.4-46.3); Red Blood Count 3.56 M/uL (4.70-6.10); White Blood Count 7.08 K/ul (4.8-10.8)
[2023-02-10 07:05] LABS: BUN Creatinine Ratio 31.2 (10-20); Calcium 8.9 mg/dl (8.6-10.3); Creatinine Clr Calc Pharmacy 35.7 ml/min; Est GFR (African American) 51.5 ml/min; Est GFR (Non-African American) 44.5 ml/min; Potassium 3.4 mmol/L (3.5-5.1)
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
--- NOTE | 2023-02-10 10:16 | XRay Report ---
XR chest 2V PA/lateral HISTORY: 87 years-old Male airspace opacities acute short of breath COMPARISON: 02/09/2023 TECHNIQUE: AP and lateral views of the chest FINDINGS: Cardiac silhouette is enlarged. Median sternotomy. Left subclavian dual lead pacer. Pulmonary vascula r congestion. No pneumothorax. Small pleural effusions with bibasilar opacities, most pronounced with in the left lung base. Healed chronic rib fractures. Degenerative changes of the shoulders and spine. IMPRESSION: 1. Cardiomegaly with pulmonary vascular congestion. 2. Small pleural effusions with mild left greater than right bibasilar opacities again noted suggesti ve of atelectasis versus pneumonia. ACT 112: Negative or not required by law. The above report was generated using voice recognition software. It may contain grammatical, syntax o r spelling errors. Electronically signed by: Kevin Light M.D. 02/10/2023 10:15 AM
[2023-02-10] MEDS: METOPROLOL TARTRATE 50 MG TAB PO SCH ×2 (10:23→22:24)
[2023-02-10] MEDS: SACCHAROMYCES BOULARDII 250 MG CAP PO SCH (10:29)
[2023-02-10] MEDS: ASPIRIN 81 MG ECTAB PO SCH (10:30)
[2023-02-10] MEDS: CYANOCOBALAMIN (B-12) 500 MCG TABLET PO SCH (10:31)
[2023-02-10] MEDS: ESCITALOPRAM OXALATE 10 MG TAB PO SCH (10:32)
[2023-02-10] MEDS: HEPARIN SOD 5,000 UNIT/0.5 ML VIAL SQ SCH ×2 (10:32→22:31)
[2023-02-10] MEDS: DOCUSATE SODIUM/SENNA 50/8.6MG TAB PO SCH ×2 (10:32→22:26)
[2023-02-10] MEDS: MULTIVITAMIN TAB PO SCH (10:33)
[2023-02-10] MEDS: POLYETHYLENE (MIRALAX) 17 GM PACK PO SCH (10:33)
--- NOTE | 2023-02-10 11:44 | XCELERA ---
[id number] [id number]
[2023-02-10] MEDS: DEXTROSE 5% 1,000 ML IV SCH (16:56)
--- NOTE | 2023-02-10 17:42 | Billing Data ---
Date of Service February 10, 2023 Coding Level of Care Code 57632 SUB INP/OBS CARE MIN
[2023-02-10] MEDS: risperiDONE 0.5 MG TABLET PO SCH (22:22)
[2023-02-10] MEDS: DOXAZOSIN MESYLATE 1 MG TAB PO SCH (22:26)
[2023-02-10] MEDS: SIMVASTATIN 20 MG TAB PO SCH (22:26)
[2023-02-11] MEDS: DEXTROSE 5% 1,000 ML IV SCH (05:04)
[2023-02-11] MEDS: LEVOTHYROXINE SODIUM 50 MCG TABLET PO SCH (06:22)
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
[2023-02-11 08:17] LABS: Basophils # (auto) 0.04 K/uL (0.00-0.20); Basophils % (auto) 0.4 %; Eosinophils # (auto) 0.22 K/uL (0.00-0.50); Eosinophils % (auto) 2.2 %; Hematocrit (blood only) 32.2 % (42.0-52.0); Hemoglobin 10.6 g/dl (14.0-18.0); Immature Granulocytes # (auto) 0.04 K/uL (0.01-0.20); Immature Granulocytes % (auto) 0.4 %; Lymphocytes # (auto) 1.77 K/uL (1.20-3.40); Lymphocytes % (auto) 17.8 %; Mean Corpuscular Hgb Conc 32.9 g/dL (32.0-36.0); Mean Corpuscular Volume 97.3 fL (80.0-100.0); Mean Platelet Volume 10.3 fL (9.4-12.4); Monocytes # (auto) 0.71 K/uL (0.11-0.59); Monocytes % (auto) 7.1 %; Neutrophils # (auto) 7.19 K/uL (1.40-6.50); Neutrophils % (auto) 72.1 %; Platelet Count 174 K/uL (130-400); RDW Coefficient of Variation 14.9 % (11.5-14.5); RDW Standard Deviation 53.1 fL (36.4-46.3); Red Blood Count 3.31 M/uL (4.70-6.10); White Blood Count 9.97 K/ul (4.8-10.8)
[2023-02-11 08:38] LABS: BUN Creatinine Ratio 31.6 (10-20); Calcium 8.7 mg/dl (8.6-10.3); Creatinine Clr Calc Pharmacy 42.5 ml/min; Est GFR (African American) 64.6 ml/min; Est GFR (Non-African American) 55.7 ml/min; Potassium 3.3 mmol/L (3.5-5.1)
[2023-02-11] MEDS: HEPARIN SOD 5,000 UNIT/0.5 ML VIAL SQ SCH ×2 (09:29→21:35)
[2023-02-11] MEDS: CYANOCOBALAMIN (B-12) 500 MCG TABLET PO SCH (10:41)
[2023-02-11] MEDS: ASPIRIN 81 MG ECTAB PO SCH (10:41)
[2023-02-11] MEDS: DOCUSATE SODIUM/SENNA 50/8.6MG TAB PO SCH ×2 (10:44→21:33)
[2023-02-11] MEDS: MULTIVITAMIN TAB PO SCH (10:44)
[2023-02-11] MEDS: SACCHAROMYCES BOULARDII 250 MG CAP PO SCH (10:44)
[2023-02-11] MEDS: ESCITALOPRAM OXALATE 10 MG TAB PO SCH (10:44)
[2023-02-11] MEDS: METOPROLOL TARTRATE 50 MG TAB PO SCH ×2 (10:44→21:33)
[2023-02-11] MEDS: LACTATED RINGER'S 1,000 ML IV SCH ×2 (11:32→20:16)
--- NOTE | 2023-02-11 19:22 | Billing Data ---
Date of Service February 11, 2023 Coding Level of Care Code 27535 SUB INP/OBS CARE MIN
[2023-02-11] MEDS: SIMVASTATIN 20 MG TAB PO SCH (21:33)
[2023-02-11] MEDS: risperiDONE 0.5 MG TABLET PO SCH (21:34)
[2023-02-11] MEDS: DOXAZOSIN MESYLATE 1 MG TAB PO SCH (21:34)
[2023-02-12] MEDS: LACTATED RINGER'S 1,000 ML IV SCH (04:13)
[2023-02-12] MEDS: LEVOTHYROXINE SODIUM 50 MCG TABLET PO SCH (05:40)
[2023-02-12] MEDS: DOCUSATE SODIUM 100 MG CAP PO PRN (05:40)
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
[2023-02-12 08:46] LABS: Basophils # (auto) 0.03 K/uL (0.00-0.20); Basophils % (auto) 0.4 %; Eosinophils # (auto) 0.22 K/uL (0.00-0.50); Hematocrit (blood only) 31.6 % (42.0-52.0); Hemoglobin 10.3 g/dl (14.0-18.0); Immature Granulocytes # (auto) 0.04 K/uL (0.01-0.20); Immature Granulocytes % (auto) 0.5 %; Lymphocytes % (auto) 21.8 %; Mean Corpuscular Hemoglobin 31.3 pg (25.0-34.0); Mean Corpuscular Hgb Conc 32.6 g/dL (32.0-36.0); Mean Platelet Volume 10.1 fL (9.4-12.4); Monocytes # (auto) 0.75 K/uL (0.11-0.59); Monocytes % (auto) 10.2 %; Neutrophils # (auto) 4.71 K/uL (1.40-6.50); Neutrophils % (auto) 64.1 %; Platelet Count 158 K/uL (130-400); RDW Coefficient of Variation 14.6 % (11.5-14.5); RDW Standard Deviation 51.4 fL (36.4-46.3); Red Blood Count 3.29 M/uL (4.70-6.10); White Blood Count 7.35 K/ul (4.8-10.8)
[2023-02-12 08:48] LABS: BUN Creatinine Ratio 30.6 (10-20); Calcium 8.7 mg/dl (8.6-10.3); Creatinine Clr Calc Pharmacy 44.8 ml/min; Est GFR (African American) 68.8 ml/min; Est GFR (Non-African American) 59.4 ml/min; Potassium 3.5 mmol/L (3.5-5.1)
[2023-02-12] MEDS: METOPROLOL TARTRATE 50 MG TAB PO SCH ×2 (08:59→21:05)
[2023-02-12] MEDS: DOCUSATE SODIUM/SENNA 50/8.6MG TAB PO SCH ×2 (09:10→21:04)
[2023-02-12] MEDS: ESCITALOPRAM OXALATE 10 MG TAB PO SCH (09:10)
[2023-02-12] MEDS: ASPIRIN 81 MG ECTAB PO SCH (09:11)
[2023-02-12] MEDS: MULTIVITAMIN TAB PO SCH (09:11)
[2023-02-12] MEDS: CYANOCOBALAMIN (B-12) 500 MCG TABLET PO SCH (09:11)
[2023-02-12] MEDS: SACCHAROMYCES BOULARDII 250 MG CAP PO SCH (09:11)
[2023-02-12] MEDS: HEPARIN SOD 5,000 UNIT/0.5 ML VIAL SQ SCH ×2 (09:12→21:13)
[2023-02-12] MEDS ORDERED: SODIUM CHLORIDE 0.65% NA SOLN 45 ML (OCEAN) PRN (16:05)
--- NOTE | 2023-02-12 18:40 | Billing Data ---
Date of Service February 12, 2023 Coding Level of Care Code 53058 SUB INP/OBS CARE
[2023-02-12] MEDS: SIMVASTATIN 20 MG TAB PO SCH (21:13)
[2023-02-12] MEDS: DOXAZOSIN MESYLATE 1 MG TAB PO SCH (21:13)
[2023-02-12] MEDS: risperiDONE 0.5 MG TABLET PO SCH (21:13)
[2023-02-13] MEDS: LEVOTHYROXINE SODIUM 50 MCG TABLET PO SCH (05:42)
[2023-02-13 06:52] LABS: Hematocrit (blood only) 31.5 % (42.0-52.0); Hemoglobin 10.4 g/dl (14.0-18.0); Mean Corpuscular Hemoglobin 31.6 pg (25.0-34.0); Mean Corpuscular Volume 95.7 fL (80.0-100.0); Platelet Count 160 K/uL (130-400); RDW Coefficient of Variation 14.6 % (11.5-14.5); RDW Standard Deviation 50.7 fL (36.4-46.3); Red Blood Count 3.29 M/uL (4.70-6.10)
[2023-02-13 07:06] LABS: BUN Creatinine Ratio 26.3 (10-20); Calcium 8.6 mg/dl (8.6-10.3); Creatinine Clr Calc Pharmacy 52.3 ml/min; Est GFR (African American) 83.1 ml/min; Est GFR (Non-African American) 71.7 ml/min; Potassium 3.5 mmol/L (3.5-5.1)
[2023-02-13] MEDS: DOCUSATE SODIUM/SENNA 50/8.6MG TAB PO SCH ×2 (07:42→22:05)
[2023-02-13] MEDS: POLYETHYLENE (MIRALAX) 17 GM PACK PO SCH (07:42)
[2023-02-13] MEDS: CYANOCOBALAMIN (B-12) 500 MCG TABLET PO SCH (08:31)
[2023-02-13] MEDS: ASPIRIN 81 MG ECTAB PO SCH (08:32)
[2023-02-13] MEDS: HEPARIN SOD 5,000 UNIT/0.5 ML VIAL SQ SCH ×2 (08:32→22:07)
[2023-02-13] MEDS: ESCITALOPRAM OXALATE 10 MG TAB PO SCH (08:32)
[2023-02-13] MEDS: SACCHAROMYCES BOULARDII 250 MG CAP PO SCH (08:32)
[2023-02-13] MEDS: MULTIVITAMIN TAB PO SCH (08:32)
[2023-02-13] MEDS: METOPROLOL TARTRATE 50 MG TAB PO SCH ×2 (08:36→22:07)
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
--- NOTE | 2023-02-13 18:06 | Billing Data ---
Date of Service February 13, 2023 Coding Level of Care Code 26559 SUB INP/OBS CARE
[2023-02-13] MEDS: risperiDONE 0.5 MG TABLET PO SCH (22:06)
[2023-02-13] MEDS: SIMVASTATIN 20 MG TAB PO SCH (22:07)
[2023-02-13] MEDS: DOXAZOSIN MESYLATE 1 MG TAB PO SCH (22:07)
[2023-02-14] MEDS: LEVOTHYROXINE SODIUM 50 MCG TABLET PO SCH (05:54)
[2023-02-14] MEDS: MULTIVITAMIN TAB PO SCH (08:24)
[2023-02-14] MEDS: SACCHAROMYCES BOULARDII 250 MG CAP PO SCH (08:24)
[2023-02-14] MEDS: ESCITALOPRAM OXALATE 10 MG TAB PO SCH (08:24)
[2023-02-14] MEDS: ASPIRIN 81 MG ECTAB PO SCH (08:24)
[2023-02-14] MEDS: CYANOCOBALAMIN (B-12) 500 MCG TABLET PO SCH (08:24)
[2023-02-14] MEDS: DOCUSATE SODIUM/SENNA 50/8.6MG TAB PO SCH ×2 (08:28→21:26)
[2023-02-14] MEDS: HEPARIN SOD 5,000 UNIT/0.5 ML VIAL SQ SCH ×2 (08:34→21:26)
[2023-02-14] MEDS: METOPROLOL TARTRATE 50 MG TAB PO SCH ×2 (08:35→21:26)
[2023-02-14 08:44] LABS: BUN Creatinine Ratio 20.2 (10-20); Calcium 8.4 mg/dl (8.6-10.3); Creatinine Clr Calc Pharmacy 52.9 ml/min; Est GFR (African American) 84.2 ml/min; Est GFR (Non-African American) 72.6 ml/min
[2023-02-14] MEDS: LACTATED RINGER'S 1,000 ML IV SCH ×2 (09:46→16:43)
--- NOTE | 2023-02-14 11:55 | Discharge Summary ---
Date of Service February 15, 2023 Admission HPI Per Admitting Provider Manuel is an 87-year-old male [facility] resident with progressive somnolence, lethargy, and declining functional status. Patient is nonverbal at baseline due to dementia, but has been progressively less responsive and more lethargic. He has no home oxygen requirement, and was started on 2 L home oxygen requirement and received 1 dose of Lasix 02/08 for suspected volume overload. On ER examination VBG is seven-point /, patient is mildly hypernatremic, creatinine is 1.29, BNP is elevated, troponin is mildly elevated. Chest x-ray does not show evidence of congestive failure, airspace opacities at left lung base with wide differential including scarring/atelectasis/aspiration/pneumonia. He does not have a leukocytosis and is afebrile. No reported cough. Chart review with weight ranging from 70-76 kg on average, admitting weight is 73.1 kg. EKG is AV dual paced rhythm Pt awakens to noxious stimuli, much more somnolent than baseline per family. Tamika --> BNP over 3,000. Remains over 1,000 in ER on 2L newly. Has had swelling in the legs and neck since January. Was never diagnosed with sleep apnea, but seems to have apneic pauses followed by heavy breaths afterwards while sleeping. yesterday was the first day he needed oxygen, was significantly improved after this Baseline function is nonverbal, will take a few steps with family and generally is alert. Recently started sleeping most of the day and appears much more tired. No fevers. Medical History: Reviewed Medications: Reviewed Surgical History: Reviewed Family history: Reviewed Allergies: Reviewed Social History: REviewed Code Status: Full Code. See HPI palliative discussion Admission Exam Per Admitting Provider Pt awakens to noxious stimuli, much more somnolent than baseline per family. Principal Diagnosis dehydration Discharge Exam Gen: frail, ill and, elderly appearing male in NAD, breathing comfortably on 1L NC, more interactive today HEENT: AT NC Resp: poor respiratory effort, no crackles, wheezing, rales, or rhonchi noted, moderate air movement CV: RRR no m/r/g Abd: non-distended Skin: dry, warm, well perfused Neuro: non-verbal at baseline, more interactive MSK: severely contracted in all four extremities Discharge Data Allergies Allergy/AdvReac Type Severity Reaction Status Date / Time No Known Allergies Allergy Verified 02/09/23 15:36 Consultations 02/09/23 14:46 ED Decision to Admit Stat Ordered Studies Chest X-Ray 02/09/23 12:51 FINDINGS: An AP, portable, upright chest radiograph is compared to study dated 03/10/2022 and correlated with chest CT dated 09/04/2012. The examination is degraded by portable technique and patient rotation. The patient's head partially obscures the apices. The patient is status post midline sternotomy. A 2-lead cardiac pacemaker is unchanged in position and partially obscures the left upper chest. The heart is enlarged noting atherosclerotic calcification of the thoracic aorta. The pulmonary vasculature is noncongested. Chronic interstitial thickening similar to previous. Airspace opacities are seen at the left lung base. No large pleural effusion or pneumothorax is identified. The skeletal structures are osteopenic. There are chronic/healed right-sided rib fractures. Degenerative change is noted in the shoulders. IMPRESSION: 1. Cardiomegaly and cardiac pacemaker without radiographic evidence of congestive failure. 2. Airspace opacities at the left lung base could represent scarring/atelectasis versus pneumonia/aspiration pneumonitis. Clinical correlation will be required and radiographic follow-up to resolution is recommended. Follow-up imaging shoul d include both PA and lateral views. Chest X-Ray 02/10/23 08:20 FINDINGS: Cardiac silhouette is enlarged. Median sternotomy. Left subclavian dual lead pacer. Pulmonary vascular congestion. No pneumothorax. Small pleural effusions with bibasilar opacities, most pronounced within the left lung base. Healed chronic rib fractures. Degenerative changes of the shoulders and spine. IMPRESSION: 1. Cardiomegaly with pulmonary vascular congestion. 2. Small pleural effusions with mild left greater than right bibasilar opacities again noted suggestive of atelectasis versus pneumonia. Hospital Course (1) Acute respiratory failure with hypoxia: Manuel is an 87-year-old male [facility] resident with progressive somnolence, l ethargy, and declining functional status admitted for presumed CHF exacerbation found to have clinical picture more consistent with delirium and dehydration. #Delirium on Dementia #Dehydration #Severe Dementia No signs of infection. UA non-infectious. Is consistent with dehydration. CXR without obvious consolidation. No respiratory symptoms. No leukocytosis. No fevers or hypothermia. Covid negative. Presentation vague. There was initial concern for acute hypoxic failure and CHF exacerbation as patient with reported new oxygen requirement, elevated BNP ~4000, and leg swelling. Patient was initially started on Lasix 80 mg x1 in the ED. There has been minimal change in presentation since admission. Patient saturating well on 1L NC which is likely providing no additional oxygen in comparison to room air. Patient with soft blood pressures without compensatory tachycardia. He also has hypernatremia. It would be unlikely to see this combination of findings in the setting of CHF exacerbation. Likely facial swelling d/t histamine mediated reaction vs viral etiology vs allergic etiology with the added antihistamine use contributed to the development of delirium and dehydration. Patient would likely benefit from gentle rehydration with D5W and delirium precautions. As hypernatremia has corrected would transition to lactated ringers. Patient with significant improvement after rehydration. Likely back at baseline at this point. Patient may need intermittent IVF to maintain hydration. Would defer to half-way care facility. PT/OT rec return to SNF. Woods discontinued prior to discharge. #Facial Swelling Discussion with revealing for month long intermittent face, eyelid, and ear lobe swelling of unknown etiology. Patient was trialing Zyrtec and Benadryl. Use of antihistamines in the elderly should be done with caution as it can lead to delirium and dehydration. Patient started on nasal saline for congestion. If patient with allergic symptoms would trial some sort of intranasal medication - flonase, ipratropium, etc. Would avoid benadryl and other antihistamines. Caroline appears to not cross the blood brain barrier and may be the best agent for Alirio to use if he does need an antihistamine. If that does not provide relief you could do a children's dose of claritin or zyrtec with caution. #Hypernatremia - resolved Likely due to free water deficit. Management as above. #?CHF Less likely causative for current symptoms. ECHO with preserved ejection fraction. #? Sleep Apnea Likely some aspect of "new oxygen requirement" d/t underlying sleep apnea as oxygen desaturations occur while sleeping. Unclear if patient would tolerate CPAP/BiPAP. Will continue with supplemental oxygen while sleeping #CAD, pacemaker placement for bradycardia Patient with CABG in 2020. Has pacemaker placed. Troponin mildly elevated suspect demand ischemia, trended. EKG with paced rhythm. Interrogation pending. ECHO pending. Continue metoprolol. #Dementia #Depression Previously on Seroquel, this was discontinued. He is now on Risperdal and this was recently dose decreased to 0.25 mg at bedtime. Continue Lexapro. IDDSI 5 Minced and Moist diet. #CKDIII No LIAT on admission. Creatinine 1.21 on admission, near normal baseline #BPH with LUTS Doxazosin continued. Bladder scan as needed. Woods in place. #Hypothyroidism: Continue Synthroid. TSH normal on admit #Goals of Care Discussion Dr. Adhikari led a [facility] discussion on admission. Patient with severe dementia. Nonverbal at baseline, on [facility] memory unit. Baseline status is nonverbal, and is able to take a few steps into wheelchair and sit wheeled around by family. Generally does not use nonverbal communication either, but does seem to brighten around family. Goal level of function is to be able to be in a wheelchair and around family. Discussed baseline decline and natural course of chronic dementia coupled with illnesses causing acute decline. Patient's reports that her, and his goals, are to reach a level of health where he was approximately 10 days ago, and she recognizes that his baseline will continue to decline. He is full code, and would want CPR/chest compressions/intubation at this time. (2) Acute exacerbation of CHF (congestive heart failure): (3) Goals of care, counseling/discussion: (4) BPH loc w/o ur obs/LUTS: (5) CKD (chronic kidney disease), stage III: (6) Dementia: (7) Hypernatremia: (8) Delirium: Total Time Total Time Spent Total Time Spent (In Minutes): see attending attestation Discharge Plan Discharge Items Patient Disposition: Transfer Long-Term Fac Reason For Visit: HYPOXIA, ?CHF Discharge Diagnosis: dehydration Activity: Per Instructions section Non-emergency contact: Primary Care Provider Call non-emergency contact if: your symptoms worsen Follow-up/Referrals: Zakia Lundberg at [place] [Primary Care Provider] - Diet: Other - See Diet Comment Diet Comment: IDDSI 5 Minced and Moist Addtl Attending Provider Instructions: Manuel is an 87-year-old male [facility] resident with progressive somnolence, lethargy, and declining functional status admitted for presumed CHF exacerbation found to have clinical picture more consistent with delirium and dehydration. #Delirium on Dementia #Dehydration #Severe Dementia No signs of infection. UA non-infectious. Is consistent with dehydration. CXR without obvious consolidation. No respiratory symptoms. No leukocytosis. No fevers or hypothermia. Covid negative. Presentation vague. There was initial concern for acute hypoxic failure and CHF exacerbation as patient with reported new oxygen requirement, elevated BNP ~4000, and leg swelling. Patient was initially started on Lasix 80 mg x1 in the ED. There has been minimal change in presentation since admission. Patient saturating well on 1L NC which is likely providing no additional oxygen in comparison to room air. Patient with soft blood pressures without compensatory tachycardia. He also has hypernatremia. It would be unlikely to see this combination of findings in the setting of CHF exacerbation. Likely facial swelling d/t histamine mediated reaction vs viral etiology vs allergic etiology with the added antihistamine use contributed to the development of delirium and dehydration. Patient would likely benefit from gentle rehydration with D5W and delirium precautions. As hypernatremia has corrected would transition to lactated ringers. Patient with significant improvement after rehydration. Likely back at baseline at this point. PT/OT, return to SNF delirium precautions - minimize lines/tubes/drains, recreate sleep/wake cycle, frequent redirection/reorientation gentle hydration 125 mL/hr LR monitor oxygen requirement and sodium levels - avoid overcorrection of sodium > 10 mEq in 24 hours #Facial Swelling Discussion with revealing for month long intermittent face, eyelid, and ear lobe swelling of unknown etiology. Patient was trialing Zyrtec and Benadryl. Use of antihistamines in the elderly should be done with caution as it can lead to delirium and dehydration. Patient started on nasal saline for congestion. If patient with allergic symptoms would trial some sort of intranasal medication - flonase, ipratropium, etc. Would avoid benadryl and other antihistamines. Caroline appears to not cross the blood brain barrier and may be the best agent for Alirio to use if he does need an antihistamine. If that does not provide relief you could do a children's dose of claritin or zyrtec with caution. #Hypernatremia - resolved Likely due to free water deficit. Management as above. #?CHF Less likely causative for current symptoms. ECHO with preserved ejection fraction. #? Sleep Apnea Likely some aspect of "new oxygen requirement" d/t underlying sleep apnea as oxygen desaturations occur while sleeping. Unclear if patient would tolerate CPAP/BiPAP. Will continue with supplemental oxygen while sleeping #CAD, pacemaker placement for bradycardia Patient with CABG in 2020. Has pacemaker placed. Troponin mildly elevated suspect demand ischemia, trended. EKG with paced rhythm. Interrogation pending. ECHO pending. Continue metoprolol. #Dementia #Depression Previously on Seroquel, this was discontinued. He is now on Risperdal and this was recently dose decreased to 0.25 mg at bedtime. Continue Lexapro #CKDIII No LIAT on admission. Creatinine 1.21 on admission, near normal baseline #BPH with LUTS Doxazosin continued. Bladder scan as needed. Woods in place. #Hypothyroidism: Continue Synthroid. TSH normal on admit DVT prophylaxis: Heparin FENGI: LR 125 mL/hr Diet: Heart healthy, small bites Disposition: PCU CODE STATUS: Full code #Goals of Care Discussion Dr. Adhikari led a [facility] discussion on admission. Patient with severe dementia. Nonverbal at baseline, on [facility] memory unit. Baseline status is nonverbal, and is able to take a few steps into wheelchair and sit wheeled around by family. Generally does not use nonverbal communication either, but does seem to brighten around family. Goal level of function is to be able to be in a wheelchair and around family. Discussed baseline decline and natural course of chronic dementia coupled with illnesses causing acute decline. Patient's reports that her, and his goals, are to reach a level of health where he was approximately 10 days ago, and she recognizes that his baseline will continue to decline. He is full code, and would want CPR/chest compressions/intubation at this time. Pending Studies at Discharge: No Stand-Alone Forms: My [facility] Skilled Items Patient informed of condition?: Yes DNR: No Discharge Level of Care: Skilled Communicable Disease: No Discharge Prognosis: Stable Lines: None Urinary Catheter: Yes Medications and DC Order Prescriptions: New Saline Mist 0.65 % Aerosol,[place] 2 spray NA BID PRNQty: 0 0RF Continued multivitamin Tablet 1 tab PO DAILY acetaminophen [Tylenol] 325 mg Tablet 650 mg PO Q4 PRN (Reason: Fever Or Pain) polyethylene glycol 3350 [Miralax] 17 gram Powder In Packet 17 g PO .Q3DAYS doxazosin 1 mg tablet 1 mg PO HS sennosides-docusate sodium [Senna-S] 8.6-50 mg Tablet 1 tab-cap PO [facility] risperidone 0.25 mg tablet 0.25 mg PO HS cyanocobalamin (vitamin B-12) [Vitamin B-12] 500 mcg Tablet 500 mcg PO DAILY levothyroxine 50 mcg tablet 50 mcg PO QAM simvastatin 20 mg tablet 20 mg PO QPM metoprolol tartrate 50 mg tablet 50 mg PO BID nitroglycerin 0.4 mg tablet, sublingual 0.4 mg sublingual DIRECTED PRN (Reason: Chest Pain) aspirin 81 mg Tablet,Chewable 81 mg PO QAM docusate sodium 100 mg Tablet 100 mg PO .Q24HRS PRN (Reason: Constipation) escitalopram oxalate 10 mg tablet 15 mg PO QAM Saccharomyces boulardii [Florastor] 250 mg Capsule 250 mg PO QAM cholecalciferol (vitamin D3) [Vitamin D3] 25 mcg (1,000 unit) Tablet 50 mcg PO DAILY Discharge Orders: Discharge Order (Routine); Ordered 02/15/23 Ordered By: Maddy Evans/Other Patient Handouts: Delirium and Dementia Admission Data Admit Date/Time: 02/09/23 16:20 Attending Provider: Maryam Blackmon Admit Provider: Ricci Adhikari Primary Care Provider: Zakia Lundberg [place] Other Providers: Ricci Adhikari; Lenin Coates; Zakia Lundberg [facility] Other Interventions: Discharge Summary Assessment (RN) Last Done: 02/15/23 12:52 Supervising Physician Co-Signing Physician Notes Resident Physician Supervision Note: I independently interviewed and examined the patient and verified the rich history and physical, reviewed labs and image studies and agree with resident findings and care plan. was up all night. but sleeping during the day - no meaningful conversation. comfortable in bed; Heart - Regular Metabolic encephalopathy/delirium/hypernatremia/dementia - antihistamine use for concern of allergies causing facial swelling likely contributed to delirium leading to poor PO intake and hypernatremia. Improved with IV hydration. continued to have poor PO intake. Poor PO intake also due to continued worsening of dementia. Discussed with regarding goals of care discussion at the facility and prn IVF support.
--- NOTE | 2023-02-14 14:44 | Hospitalist Progress Note ---
Date of Service February 14, 2023 Assessment & Plan (1) Acute respiratory failure with hypoxia: Plan: Manuel is an 87-year-old male [facility] resident with progressive somnolence, lethargy, and declining functional status admitted for presumed CHF exacerbation found to have clinical picture more consistent with delirium and dehydration. #Metabolic encephalopathy due to dehydration from poor PO intake due to delirium #Severe Dementia #Hypernatremia No sign of infection. Treated with lasix in ED with rise in creatinine. Improvement with gentle hydration. PT/OT, return to SNF delirium precautions - minimize lines/tubes/drains, recreate sleep/wake cycle, frequent redirection/reorientation #Poor oral intake Multifactorial - severe dementia. Delirium from antihistamine in addition. -continue LR 125ml/hr. Monitor PO intake. #Facial Swelling Month long intermittent face, eyelid, and ear lobe swelling of unknown etiology. Patient was trialing Zyrtec and Benadryl. Likely lead to delirium and subsequent dehydration. Started on nasal saline for congestion. Could consider intranasal medication - flonase, ipratropium, etc. Avoid benadryl. #Nocturnal hypoxia. ? Sleep Apnea. desaturations occur while sleeping. Continue with supplemental oxygen prn while sleeping #CAD, pacemaker placement for bradycardia Patient with CABG in 2020. Has pacemaker placed. Troponin mildly elevated suspect demand ischemia, trended. EKG with paced rhythm. Continue metoprolol. #Dementia #Depression Previously on Seroquel, this was discontinued. He is now on Risperdal and this was recently dose decreased to 0.25 mg at bedtime. Continue Lexapro #LIAT CKDIII LIAT due to lasix 80mgs on admission for concern of fluid overload. Now resolved #BPH with LUTS Doxazosin continued. Bladder scan as needed. [place] in place. Line - de ulna for retention DVT prophylaxis: Heparin FENGI: LR 125 mL/hr Diet: Heart healthy, small bites Disposition: Now stable for return to [facility] CODE STATUS: Full code #Goals of Care Discussion Dr. Adhikari led a [facility] discussion on admission. Patient with severe dementia. Nonverbal at baseline, on [facility] memory unit. Baseline status is nonverbal, and is able to take a few steps into wheelchair and sit wheeled around by family. Generally does not use nonverbal communication either, but does seem to brighten around family. Goal level of function is to be able to be in a wheelchair and around family. Discussed baseline decline and natural course of chronic dementia coupled with illnesses causing acute decline. Patient's reports that her, and his goals, are to reach a level of health where he was approximately 10 days ago, and she recognizes that his baseline will continue to decline. He is full code, and would want CPR/chest compressions/intubation at this time. (2) Acute exacerbation of CHF (congestive heart failure): (3) Goals of care, counseling/discussion: (4) BPH loc w/o ur obs/LUTS: (5) CKD (chronic kidney disease), stage III: (6) Dementia: (7) Hypernatremia: (8) Delirium: Admission and Anticipated Discharge Date Admission Date: February 09, 2023 Supervising Physician Co-Signing Physician Notes Resident Physician Supervision Note: I independently interviewed and examined the patient and verified the rich history and physical, reviewed labs and image studies and agree with resident findings and care plan. Subjective Subjective limited by mental status of patient. More alert and responsive today. Nods appropriately. Awakens to name. Physical Exam 2 Physical Exam: Gen: frail, ill and, elderly appearing male in NAD, breathing comfortably on room air, more interactive today HEENT: AT NC Resp: poor respiratory effort, no crackles, wheezing, rales, or rhonchi noted, moderate air movement CV: RRR no m/r/g Abd: non-distended Skin: dry, warm, well perfused Neuro: non-verbal at baseline, more interactive MSK: severely contracted in all four extremities Results & Data Results & Data Vital Signs (Past 12 Hours) Vital Signs Temp Pulse Resp BP Pulse Ox O2 Del Method 02/14/23 07:34 Room Air 02/14/23 07:19 36.5 C 57 L 20 123/67 93 Room Air Laboratory Results 02/13/23 06:15 02/14/23 06:51 Resident Activity Tracking Resident Involvement: Resident Care Provided Care Provided: Adult Hospital Medicine (2) Acute exacerbation of CHF (congestive heart failure) Heart failure type: unspecified Qualified Code(s): I50.9 - Heart failure, unspecified (6) Dementia Dementia behavioral or psychological symptom: with other behavioral disturbance Dementia severity: severe Dementia type: unspecified type Qualified Code(s): F03.C18 - Unspecified dementia, severe, with other behavioral disturbance
[2023-02-14] MEDS: DOXAZOSIN MESYLATE 1 MG TAB PO SCH (21:26)
[2023-02-14] MEDS: risperiDONE 0.5 MG TABLET PO SCH (21:26)
[2023-02-14] MEDS: SIMVASTATIN 20 MG TAB PO SCH (21:27)
[2023-02-15] MEDS: LACTATED RINGER'S 1,000 ML IV SCH ×2 (00:04→11:24)
[2023-02-15] MEDS: LEVOTHYROXINE SODIUM 50 MCG TABLET PO SCH ×2 (06:00→06:04)
[2023-02-15 07:35] LABS: BUN Creatinine Ratio 17.2 (10-20); Calcium 8.5 mg/dl (8.6-10.3); Creatinine Clr Calc Pharmacy 53.4 ml/min; Est GFR (African American) 85.2 ml/min; Est GFR (Non-African American) 73.6 ml/min
[2023-02-15] MEDS: CYANOCOBALAMIN (B-12) 500 MCG TABLET PO SCH (11:25)
[2023-02-15] MEDS: ASPIRIN 81 MG ECTAB PO SCH (11:25)
[2023-02-15] MEDS: ESCITALOPRAM OXALATE 10 MG TAB PO SCH (11:26)
[2023-02-15] MEDS: METOPROLOL TARTRATE 50 MG TAB PO SCH (11:27)
[2023-02-15] MEDS: MULTIVITAMIN TAB PO SCH (11:28)
[2023-02-15] MEDS: SACCHAROMYCES BOULARDII 250 MG CAP PO SCH (11:28)
[2023-02-15] MEDS: HEPARIN SOD 5,000 UNIT/0.5 ML VIAL SQ SCH (11:29)
[2023-02-15] MEDS: DOCUSATE SODIUM/SENNA 50/8.6MG TAB PO SCH (12:16)
== END 2023-02-15 13:59 | DRG 640 ==
LOC: ED 12:12 → SUATTDRO 16:20 → 2S 16:20 → 3N 02-11 23:16

== ENCOUNTER 2023-09-10 22:41 | Inpatient (IN) ==
--- NOTE | 2023-09-10 23:17 | Emergency Department Note ---
Impression & Plan Hypothermia, Acute dehydration, Acute hypotension, Elevated troponin I level, Respiratory failure ED Provider Note NAME: TITA MCKEON AGE: 88 SEX: M : 1935 ARRIVES VIA: Ambulance INFORMANT: EMS, the patient's significant other ED PROVIDER(S): Rob Parra DO CHIEF COMPLAINT: Altered mental status HPI: The patient is an 88-year-old male who presented to the emergency department for an evaluation of altered mental status. The patient was felt to have an infection. The patient was felt to have low blood pressure. This was noted by the nursing of staff. He was sent to the emergency department for further evaluation. Unfortunately patient cannot give any history because of advanced dementia. His significant other states that he has not been complaining of anything recently. He has had no reported falls. There is been no reported vomiting abdominal pain or chest pain. ROS: See above HPI for pertinent positives & negatives. A total of 10 systems reviewed and were otherwise negative. PAST MEDICAL HISTORY: See Below PAST SURGICAL HISTORY: See Below FAMILY HISTORY: See Below SOCIAL HISTORY: See Below HOME MEDICATIONS: See Below ALLERGIES: See Below VITALS: See Below PHYSICAL EXAMINATION: GENERAL: The patient is listless and does not respond to questions. EYES: The conjunctivae are clear. The pupils are round and reactive. EARS, NOSE, MOUTH AND THROAT: The nose is without any evidence of any deformity. Mucous membranes are dry. NECK: The neck is nontender and supple. RESPIRATORY: Shallow respirations were noted with Rales in the right lung field. CARDIOVASCULAR: Regular rate and rhythm noted there no murmurs rubs or gallops normal S1 normal S2. GASTROINTESTINAL: The abdomen is soft. Abdomen is nontender. MUSCULOSKELETAL/EXTREMITIES: There is no evidence of gross deformity full range of motion is noted in the hips and shoulders. SKIN: Skin was warm and dry. There was pedal edema noted bilaterally. NEUROLOGIC: Patient does not follow commands or answer questions. I am unable to assess orientation at this time. He appears to be at his baseline according to his significant other. MEDICAL DECISION MAKING: The patient is an 88-year-old male who presented to the emergency department by ambulance at the request of his significant other. The patient lives intermediate. He has very advanced dementia. He sometimes does not eat or drink well. He was noted to have hypotension and was sent to the emergency department for further evaluation. The patient was hypothermic. This led to a septic workup. No definite cause for the patient's presentation could be found he was treated with IV fluids as well as empiric antibiotics. Given his presentation as well as his ongoing abnormal vital signs I discussed his condition with the on-call [facility] hospitalist. They have agreed to evaluate the patient in the emergency department for further management and disposition. The patient was reevaluated multiple times. I discussed the patient's condition with the patient's significant other. Triage Nursing notes reviewed. Prior medical records reviewed Vital Signs: reviewed and remarkable for hypothermia and hypotension. Differential diagnosis: Infection, hypoglycemia, electrolyte abnormalities, overdose, toxicologic, cardiac sources, intracerebral event, neurologic, trauma, as well as other pathologies. ER treatment provided: See below Diagnostics interpreted by me: ECG: EKG was obtained in the emergency department. My interpretation is dual- chamber pacemaker at 63 bpm. Left bundle branch block pattern was noted. This was compared to a tracing from February 09, 2023. No changes were noted. Cardiac Monitoring: An order was placed for continuous cardiac monitoring. The monitor shows a rate of 60 bpm with paced rhythm. Laboratory studies: As stated above and show below. Imaging studies: See below. Radiographic imaging was reviewed by myself Consultation(s): I discussed this case with Dr. Yates who is on-call for the [facility]. ED COURSE: Procedures: Endotracheal Intubation Indication: the patient was evaluated by the admitting team and was felt to have worsening blood pressure as well as respiratory status. I was asked to evaluate the patient for possible endotracheal intubation. I discussed this with the ICU team. They were present for the intubation. The patient was on 100% oxygen via NRB prior to the procedure. Suction, airway equipment, RSI drugs, respiratory equipment, and appropriate personnel were prepared prior to the initiation of the procedure. A time out was taken. Induction was performed with ketamine and rocuronium. After observing the clinical benefit of the medications, the airway was easily visualized utilizing a glide scope. A 7.5 size ETT tube was placed atraumatically to 25 cm using standard technique. The cuff inflated without signs of malfunction. There were bilateral breath sounds, positive colormetric change, no gastric sounds, a good capnography waveform, and post procedure pulse oximetry was 96%. Post intubation sedation and paralysis was administered using propofol. There were no complications. Critical Care: I have personally spent greater than 35 minutes of critical care time in the direct management of this patient. This includes bedside care, interpretation of diagnostic studies, and testing, discussion with consultants, patient, and family members, and other required patient management activities. This 35 minutes is in excess of all separately billable procedures. 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 VESSELS done at [facility] CKD (chronic kidney disease), stage III Hypothyroidism Pacemaker 10/2018 -- med[employer]onic follows dr simpson last check - 02/2019 Cognitive change (Chronic) 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) Impaired fasting glucose (Chronic) Dyslipidemia (Chronic) 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) Hypertension (Chronic) Kidney stone on right side (Chronic) CAD (coronary artery disease) (Chronic) Kyphoscoliosis (Chronic) Multiple pulmonary nodules (Chronic) found on xray and no problems just watch Medical History Acute hypotension Short-term memory loss Kidney stone 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 Sinus bradycardia Encounter for pre-operative examination Raynauds syndrome MILD (EFFECTING FINGERS) Hypertension Hyperlipidemia Cellulitis of left hand Surgical History History of tonsillectomy History of inguinal hernia repair Hx of hernia repair repair of inguinal hernia History of cataract surgery RT/ LT History of colonoscopy Blocked tear duct repair of of tear duct History of cardiac cath 02/2002 and then needed cabg x 4 Family History Sister Family history of diabetes mellitus Hypertension Family/Other Family history of diabetes mellitus Father Acute myocardial infarction Denies family history of Ovarian cancer Prostate cancer Myocardial infarction Breast cancer Colorectal cancer Social History Smoking Status: Never smoker Second Hand Exposure: No; Do You Dip or Chew Tobacco: No; Hx Alcohol Use: No Hx Substance Use: No Preferred Language: Welsh Communication Ability: Unable Visual Impairment: Limited Hearing Ability: Normal Oil [employer] Required: No Beliefs That Will Affect Care: None marital status: Current Living Situation: Longterm Current Living Situation Comment: memory care at [facility] current occupational status: retired How many Children do You have: 2 Feels Safe at Home: Yes Childhood Exposure to Second-Hand Smoke: No caffeine: Yes (coffee and sometimes tea ) Dental Care, Regularly: Yes Physical Activity Frequency: Daily Physical Activity Frequency Comment: walks 40 mins a day Seatbelt Use: always Sunscreen Use: Yes Assistive Devices: Oxygen - Continuous Allergies Allergies Allergy/AdvReac Type Severity Reaction Status Date / Time No Known Allergies Allergy Verified 09/11/23 01:00 Home Meds Home Medications Medication Instructions Recorded Confirmed Saccharomyces boulardii 250 mg 250 mg PO QAM 02/09/23 09/11/23 capsule (Florastor) acetaminophen 325 mg tablet 650 mg PO Q4 PRN Fever Or Pain 02/09/23 09/11/23 (Tylenol) aspirin 81 mg chewable tablet 81 mg PO QAM 02/09/23 09/11/23 cholecalciferol (vitamin D3) 25 50 mcg PO DAILY 02/09/23 09/11/23 mcg (1,000 unit) tablet (Vitamin D3) cyanocobalamin (vitamin B-12) 500 500 mcg PO DAILY 02/09/23 09/11/23 mcg tablet (Vitamin B-12) docusate sodium 100 mg tablet 100 mg PO Q24H PRN 02/09/23 09/11/23 Constipation-GIVE ON DAY 2 IN NO BM doxazosin 1 mg tablet 1 mg PO HS 02/09/23 09/11/23 escitalopram oxalate 10 mg tablet 15 mg PO QAM 02/09/23 09/11/23 levothyroxine 50 mcg tablet 50 mcg PO QAM 02/09/23 09/11/23 metoprolol tartrate 50 mg tablet 50 mg PO BID 02/09/23 09/11/23 multivitamin 1 tab PO DAILY 02/09/23 09/11/23 nitroglycerin 0.4 mg sublingual 0.4 mg sublingual DIRECTED PRN 02/09/23 09/11/23 tablet Chest Pain polyethylene glycol 3350 17 gram 17 g PO .Q3DAYS 02/09/23 09/11/23 oral powder packet (Miralax) sennosides 8.6 mg-docusate sodium 1 tab-cap PO AMHS 02/09/23 09/11/23 50 mg tablet (Senna-S) simvastatin 20 mg tablet 20 mg PO QPM 02/09/23 09/11/23 risperidone 1 mg/mL oral solution 0 mg PO HS 09/11/23 09/11/23 sodium chloride 0.65 % nasal spray 2 spray NA Q2H PRN DRY 09/11/23 09/11/23 aerosol (Saline Mist) NOSE/EPISTAXIS Results & Data (ED) Vital Signs Vital Signs - 24 hr 09/10/23 22:35 09/10/23 22:52 09/10/23 23:11 Temperature 32.8 C L Temperature Source Rectal Pulse Rate 60 75 60 Pulse Rate [Apical] Pulse Rate from SpO2 Sensor Pulse Rhythm Regular Regular Pulse Rhythm [Apical] Pulse Strength [Apical] Respiratory Rate 12 16 Respiratory Effort / Characteristics Respiratory Depth Shallow Respiratory Pattern Blood Pressure 88/68 L Blood Pressure [Left Arm] Blood Pressure Mean 74 Blood Pressure Mean [Left Arm] Blood Pressure Position Lying Blood Pressure Position [Left Arm] Pulse Oximetry 100 100 Oxygen Delivery Method Nasal Cannula Nasal Cannula Oxygen Flow Rate 2 2 Sepsis Recent Fever Within 48 Hours No Sepsis New/Unexplained Change in Mental Status Yes Sepsis Action Taken by Nursing MD Previously Notified 09/10/23 23:11 09/10/23 23:45 09/11/23 00:18 Temperature 32.9 C L 32.9 C L Temperature Source Woods Cath ( Temp Sensing) Pulse Rate 60 Pulse Rate [Apical] 60 60 Pulse Rate from SpO2 Sensor 60 Pulse Rhythm Pulse Rhythm [Apical] Regular Regular Pulse Strength [Apical] Normal Normal Respiratory Rate 16 16 15 Respiratory Effort / Characteristics Non-Labored Spontaneous Non-Labored Spontaneous Respiratory Depth Normal Normal Respiratory Pattern Regular Regular Blood Pressure Blood Pressure [Left Arm] 115/83 90/67 L Blood Pressure Mean Blood Pressure Mean [Left Arm] 93 74 Blood Pressure Position Blood Pressure Position [Left Arm] Lying Lying Pulse Oximetry 100 100 98 Oxygen Delivery Method Nasal Cannula Nasal Cannula Oxygen Flow Rate 2 2 Sepsis Recent Fever Within 48 Hours Sepsis New/Unexplained Change in Mental Status Sepsis Action Taken by Nursing 09/11/23 00:33 09/11/23 00:48 09/11/23 00:51 Temperature 32.8 C L 32.7 C L 32.7 C L Temperature Source Pulse Rate 60 60 60 Pulse Rate [Apical] Pulse Rate from SpO2 Sensor 60 60 60 Pulse Rhythm Pulse Rhythm [Apical] Pulse Strength [Apical] Respiratory Rate 14 17 15 Respiratory Effort / Characteristics Respiratory Depth Respiratory Pattern Blood Pressure Blood Pressure [Left Arm] Blood Pressure Mean Blood Pressure Mean [Left Arm] Blood Pressure Position Blood Pressure Position [Left Arm] Pulse Oximetry 96 97 97 Oxygen Delivery Method Oxygen Flow Rate Sepsis Recent Fever Within 48 Hours Sepsis New/Unexplained Change in Mental Status Sepsis Action Taken by Nursing 09/11/23 01:00 09/11/23 01:03 09/11/23 01:15 Temperature 32.7 C L Temperature Source Pulse Rate 60 Pulse Rate [Apical] Pulse Rate from SpO2 Sensor 60 Pulse Rhythm Pulse Rhythm [Apical] Pulse Strength [Apical] Respiratory Rate 18 Respiratory Effort / Characteristics Respiratory Depth Respiratory Pattern Blood Pressure 90/60 L 94/68 L Blood Pressure [Left Arm] Blood Pressure Mean 65 77 Blood Pressure Mean [Left Arm] Blood Pressure Position Blood Pressure Position [Left Arm] Pulse Oximetry 97 Oxygen Delivery Method Oxygen Flow Rate Sepsis Recent Fever Within 48 Hours Sepsis New/Unexplained Change in Mental Status Sepsis Action Taken by Nursing 09/11/23 01:15 Temperature 32.7 C L Temperature Source Pulse Rate 60 Pulse Rate [Apical] Pulse Rate from SpO2 Sensor 60 Pulse Rhythm Pulse Rhythm [Apical] Pulse Strength [Apical] Respiratory Rate 15 Respiratory Effort / Characteristics Respiratory Depth Respiratory Pattern Blood Pressure Blood Pressure [Left Arm] Blood Pressure Mean Blood Pressure Mean [Left Arm] Blood Pressure Position Blood Pressure Position [Left Arm] Pulse Oximetry 96 Oxygen Delivery Method Oxygen Flow Rate Sepsis Recent Fever Within 48 Hours Sepsis New/Unexplained Change in Mental Status Sepsis Action Taken by Longterm Medications Current Medication List: was personally reviewed by me Laboratory Data Attestation: I reviewed the patient's lab results. 09/10/23 22:50 09/10/23 22:50 Lab Results 09/10/23 09/10/23 09/10/23 Range/Units 22:50 23:15 23:40 WBC 3.37 L (4.8-10.8) K/ul RBC 3.78 L (4.70-6.10) M/uL Hgb 10.9 L (14.0-18.0) g/dl Hct 35.3 L (42.0-52.0) % MCV 93.4 (80.0-100.0) fL MCH 28.8 (25.0-34.0) pg MCHC 30.9 L (32.0-36.0) g/dL RDW Std Deviation 71.7 H (36.4-46.3) fL RDW Coeff of Layo 21.4 H (11.5-14.5) % Plt Count 112 L (130-400) K/uL MPV 12.3 (9.4-12.4) fL Immature Gran % (Auto) 0.3 % Neut % (Auto) 37.3 % Lymph % (Auto) 46.0 % [place] % (Auto) 11.9 % Eos % (Auto) 3.6 % Baso % (Auto) 0.9 % Neut # (Auto) 1.26 L (1.40-6.50) K/uL Lymph # (Auto) 1.55 (1.20-3.40) K/uL [place] # (Auto) 0.40 (0.11-0.59) K/uL Eos # (Auto) 0.12 (0.00-0.50) K/uL Baso # (Auto) 0.03 (0.00-0.20) K/uL Immature Gran # (Auto) 0.01 (0.01-0.20) K/uL Anisocytosis Present Tear Drop Cells 1+ Ovalocytes 1+ PT 13.4 H (9.0-12.0) Seconds INR 1.3 H (0.9-1.1) APTT 36 H (21-31) Seconds PTT Ratio 1.3 VBG pH 7.41 (7.36-7.41) VBG pCO2 43 (38-50) mmHg VBG pO2 93 mmHg VBG HCO3 27 mmol/L VBG O2 Saturation 97.5 % VBG Base Excess 2.2 mEq/L Sodium 147 H (136-145) mmol/L Potassium 3.7 (3.5-5.1) mmol/L Chloride 114 H (98-107) mmol/L Carbon Dioxide 29 (21-32) mmol/L Anion Gap 4 (3-11) BUN 52 H (6-23) mg/dl Creatinine 0.86 (0.6-1.4) mg/dl Est Cr Clr Drug Dosing 58.8 ml/min Est GFR ( Amer) 89.7 ml/min Est GFR (Non-Af Amer) 77.4 ml/min BUN/Creatinine Ratio 60.5 H (10-20) Glucose 84 (70-99(Fasting)) mg/dl Lactate 1.6 (0.4-2.0) mmol/L Calcium 9.3 (8.6-10.3) mg/dl Magnesium 1.9 (1.7-2.4) mg/dl Total Bilirubin 1.2 H (0.2-1.0) mg/dl Direct Bilirubin 0.3 H (0-0.2) mg/dl AST 24 (13-39) U/L ALT 17 (7-52) U/L Alkaline Phosphatase 113 H (34-104) U/L Troponin I High Sens 22.4 H (0-20) pg/ml Total Protein 6.7 (6.0-8.3) gm/dl Albumin 3.0 L (3.4-5.0) gm/dl Procalcitonin 0.06 (0-0.5) ng/ml Urine Color Dark Yellow Urine Appearance Clear (Clear) Urine pH 5.0 (4.5-7.5) Ur Specific [place] 1.025 (1.000-1.030) Urine Protein Trace H (Negative) Urine Glucose (UA) Negative (Negative) Urine Ketones Negative (Negative) Urine Blood Negative (Negative) Urine Nitrite Negative (Negative) Urine Bilirubin Negative (Negative) Urine Urobilinogen Negative (Negative) Ur Leukocyte Esterase Negative (Negative) Urine WBC (Auto) 0-5 (0-5) /hpf Urine RBC (Auto) 0-2 (0-2) /hpf U Hyaline Cast (Auto) 0-2 (0-2) /lpf U Epithel Cells (Auto) 0-2 (0-2) /hpf Urine Bacteria (Auto) None Seen (None Seen) SARS-CoV-2 (PCR) NEGATIVE (Negative) Influenza Type A (PCR) Negative (Neg) Influenza Type B (PCR) Negative (Neg) RSV (RT-PCR) Negative (Neg) 09/11/23 Range/Units 01:12 WBC (4.8-10.8) K/ul RBC (4.70-6.10) M/uL Hgb (14.0-18.0) g/dl Hct (42.0-52.0) % MCV (80.0-100.0) fL MCH (25.0-34.0) pg MCHC (32.0-36.0) g/dL RDW Std Deviation (36.4-46.3) fL RDW Coeff of Layo (11.5-14.5) % Plt Count (130-400) K/uL MPV (9.4-12.4) fL Immature Gran % (Auto) % Neut % (Auto) % Lymph % (Auto) % [place] % (Auto) % Eos % (Auto) % Baso % (Auto) % Neut # (Auto) (1.40-6.50) K/uL Lymph # (Auto) (1.20-3.40) K/uL [place] # (Auto) (0.11-0.59) K/uL Eos # (Auto) (0.00-0.50) K/uL Baso # (Auto) (0.00-0.20) K/uL Immature Gran # (Auto) (0.01-0.20) K/uL Anisocytosis Tear Drop Cells Ovalocytes PT (9.0-12.0) Seconds INR (0.9-1.1) APTT (21-31) Seconds PTT Ratio VBG pH (7.36-7.41) VBG pCO2 (38-50) mmHg VBG pO2 mmHg VBG HCO3 mmol/L VBG O2 Saturation % VBG Base Excess mEq/L Sodium (136-145) mmol/L Potassium (3.5-5.1) mmol/L Chloride (98-107) mmol/L Carbon Dioxide (21-32) mmol/L Anion Gap (3-11) BUN (6-23) mg/dl Creatinine (0.6-1.4) mg/dl Est Cr Clr Drug Dosing ml/min Est GFR ( Amer) ml/min Est GFR (Non-Af Amer) ml/min BUN/Creatinine Ratio (10-20) Glucose (70-99(Fasting)) mg/dl Lactate (0.4-2.0) mmol/L Calcium (8.6-10.3) mg/dl Magnesium (1.7-2.4) mg/dl Total Bilirubin (0.2-1.0) mg/dl Direct Bilirubin (0-0.2) mg/dl AST (13-39) U/L ALT (7-52) U/L Alkaline Phosphatase (34-104) U/L Troponin I High Sens 17.7 D (0-20) pg/ml Total Protein (6.0-8.3) gm/dl Albumin (3.4-5.0) gm/dl Procalcitonin (0-0.5) ng/ml Urine Color Urine Appearance (Clear) Urine pH (4.5-7.5) Ur Specific [place] (1.000-1.030) Urine Protein (Negative) Urine Glucose (UA) (Negative) Urine Ketones (Negative) Urine Blood (Negative) Urine Nitrite (Negative) Urine Bilirubin (Negative) Urine Urobilinogen (Negative) Ur Leukocyte Esterase (Negative) Urine WBC (Auto) (0-5) /hpf Urine RBC (Auto) (0-2) /hpf U Hyaline Cast (Auto) (0-2) /lpf U Epithel Cells (Auto) (0-2) /hpf Urine Bacteria (Auto) (None Seen) SARS-CoV-2 (PCR) (Negative) Influenza Type A (PCR) (Neg) Influenza Type B (PCR) (Neg) RSV (RT-PCR) (Neg) Administered Medications Norepinephrine Bitartrate (Levophed/D5w) 4 mg in 250 mls @ 13.125 mls/hr IV .Q19H3M [facility]; Protocol Stop: 10/11/23 01:59 Last Admin: 09/11/23 01:59 Dose: 0.05 mcg/kg/min, 13.1 mls/hr Documented By: IDD Co-signed By: KELSEA Discontinued Medications Sodium Chloride (Nss) 1,000 mls @ 999 mls/hr IV .Q1H1M ONE Stop: 09/11/23 00:10 Last Infusion: 09/11/23 00:45 Dose: Infused Documented By: Admin: 09/10/23 23:39 Dose: 999 mls/hr Documented By: DUNCAN Sodium Chloride (Nss) 1,000 mls @ 999 mls/hr IV .Q1H1M ONE Stop: 09/11/23 01:05 Last Admin: 09/11/23 00:42 Dose: 999 mls/hr Documented By: AN Cefepime HCl (Maxipime) 2,000 mg in 20 mls @ 5 mls/min IV NOW STA; Protocol Stop: 09/11/23 00:08 Last Admin: 09/11/23 00:44 Dose: 5 mls/min Documented By: AN Sodium Chloride (Nss) 500 mls @ 999 mls/hr IV .Q31M ONE Stop: 09/11/23 01:05 Last Infusion: 09/11/23 01:26 Dose: Infused Documented By: Admin: 09/11/23 00:44 Dose: 999 mls/hr Documented By: AN Imaging Data Attestation: I personally reviewed and interpreted this imaging study as follows: My Impression: 1 view chest x-ray was obtained in the emergency department. My interpretation is cardiomegaly, no definite infiltrate was noted although the image is difficult to interpret given the patient's positioning. Final report pending. Discharge Plan Visit Data Chief Complaint: Hypotension Stated Complaint: Hypotension, Lethargic ED Provider: Rob Parra Discharge Problem: Hypothermia, Acute dehydration, Acute hypotension, Elevated troponin I level, Respiratory failure Patient Disposition: Being Evaluated by Hospitalist Forms Stand Alone Forms: [facility] Prescriptions Prescriptions: No Action multivitamin Tablet 1 tab PO DAILY acetaminophen [Tylenol] 325 mg Tablet 650 mg PO Q4 MDD 3 GRAMS APAP/24 HOURS PRN (Reason: Fever Or Pain) polyethylene glycol 3350 [Miralax] 17 gram Powder In Packet 17 g PO .Q3DAYS doxazosin 1 mg tablet 1 mg PO HS sennosides-docusate sodium [Senna-S] 8.6-50 mg Tablet 1 tab-cap PO AMHS cyanocobalamin (vitamin B-12) [Vitamin B-12] 500 mcg Tablet 500 mcg PO DAILY levothyroxine 50 mcg tablet 50 mcg PO QAM simvastatin 20 mg tablet 20 mg PO QPM metoprolol tartrate 50 mg tablet 50 mg PO BID nitroglycerin 0.4 mg tablet, sublingual 0.4 mg sublingual DIRECTED PRN (Reason: Chest Pain) aspirin 81 mg Tablet,Chewable 81 mg PO QAM docusate sodium 100 mg Tablet 100 mg PO Q24H PRN (Reason: Constipation-GIVE ON DAY 2 IN NO BM) escitalopram oxalate 10 mg tablet 15 mg PO QAM Saccharomyces boulardii [Florastor] 250 mg Capsule 250 mg PO QAM cholecalciferol (vitamin D3) [Vitamin D3] 25 mcg (1,000 unit) Tablet 50 mcg PO DAILY risperidone 1 mg/mL solution 0 mg PO HS Rx Instructions: DOSE 0.375 ML Saline Mist 0.65 % aerosol,spray 2 spray NA Q2H PRN (Reason: DRY NOSE/EPISTAXIS) Referrals Referrals: Zakia Lundberg Avilla [Primary Care Provider] - Discharge Problem: Hypothermia Qualifiers: Encounter type: initial encounter Qualified Code(s): T68.XXXA - Hypothermia, initial encounter Respiratory failure Qualifiers: Chronicity: acute Respiratory failure complication: hypoxia Qualified Code(s): J96.01 - Acute respiratory failure with hypoxia
[2023-09-10 23:20] LABS: Basophils # (auto) 0.03 K/uL (0.00-0.20); Basophils % (auto) 0.9 %; Eosinophils # (auto) 0.12 K/uL (0.00-0.50); Eosinophils % (auto) 3.6 %; Hematocrit (blood only) 35.3 % (42.0-52.0); Hemoglobin 10.9 g/dl (14.0-18.0); Immature Granulocytes # (auto) 0.01 K/uL (0.01-0.20); Immature Granulocytes % (auto) 0.3 %; Lymphocytes # (auto) 1.55 K/uL (1.20-3.40); Mean Corpuscular Hemoglobin 28.8 pg (25.0-34.0); Mean Corpuscular Hgb Conc 30.9 g/dL (32.0-36.0); Mean Corpuscular Volume 93.4 fL (80.0-100.0); Mean Platelet Volume 12.3 fL (9.4-12.4); Monocytes % (auto) 11.9 %; Neutrophils # (auto) 1.26 K/uL (1.40-6.50); Neutrophils % (auto) 37.3 %; Platelet Count 112 K/uL (130-400); RDW Coefficient of Variation 21.4 % (11.5-14.5); RDW Standard Deviation 71.7 fL (36.4-46.3); Red Blood Count 3.78 M/uL (4.70-6.10); White Blood Count 3.37 K/ul (4.8-10.8)
[2023-09-10 23:25] LABS: Base Excess VBG 2.2 mEq/L; HCO3 VBG 27 mmol/L; Oxygen Saturation VBG 97.5 %; PCO2 VBG 43 mmHg (38-50); PO2 VBG 93 mmHg; pH VBG 7.41 (7.36-7.41)
[2023-09-10] MEDS: SODIUM CHLORIDE 0.9% 1,000 ML IV ONE (23:39)
[2023-09-10 23:40] LABS: Anisocytosis Present; Ovalocytes 1+; Tear Drop Cells 1+
[2023-09-10 23:44] LABS: BUN Creatinine Ratio 60.5 (10-20); Bilirubin Direct 0.3 mg/dl (0-0.2); Bilirubin,Total 1.2 mg/dl (0.2-1.0); Calcium 9.3 mg/dl (8.6-10.3); Creatinine Clr Calc Pharmacy 58.8 ml/min; Est GFR (African American) 89.7 ml/min; Est GFR (Non-African American) 77.4 ml/min; Magnesium 1.9 mg/dl (1.7-2.4); Potassium 3.7 mmol/L (3.5-5.1); Total Protein 6.7 gm/dl (6.0-8.3)
[2023-09-10 23:48] LABS: INR 1.3 (0.9-1.1); Partial Thromboplastin Ratio 1.3; Partial Thromboplastin Time 36 Seconds (21-31); Prothrombin Time 13.4 Seconds (9.0-12.0)
[2023-09-10 23:51] LABS: Troponin I High Sensitivity 22.4 pg/ml (0-20)
[2023-09-11 00:05] LABS: Appearance Urine Clear (Clear); Bacteria Urine Automated None Seen (None Seen); Bilirubin Urine Negative (Negative); Blood Urine Negative (Negative); Cast Urine Automated 0-2 /lpf (0-2); Color Urine Dark Yellow; Epithelial Cell Urine Auto 0-2 /hpf (0-2); Glucose Urine UA Negative (Negative); Ketones Urine Negative (Negative); Leukocyte Esterase Urine Negative (Negative); Nitrite Urine Negative (Negative); Protein Urine Trace (Negative); RBC Urine Automated 0-2 /hpf (0-2); Specific Gravity Urine 1.025 (1.000-1.030); Urobilinogen Urine Negative (Negative); WBC Urine Automated 0-5 /hpf (0-5)
[2023-09-11 00:35] LABS: Influenza A virus by PCR Negative (Neg); Influenza B virus by PCR Negative (Neg); RSV by PCR Negative (Neg); SARS CoV2 RNA(COVID-19) Ceph NEGATIVE (Negative)
[2023-09-11] MEDS: SODIUM CHLORIDE 0.9% 1,000 ML IV ONE (00:42)
[2023-09-11] MEDS: SODIUM CHLORIDE 0.9% 500 ML IV ONE (00:44)
[2023-09-11] MEDS: CEFEPIME 2,000 MG/20 ML VIAL IV STA (00:44)
--- NOTE | 2023-09-11 00:44 | History & Physical Report ---
Date of Service September 11, 2023 Assessment & Plan (1) Sepsis: Plan: Patient leukopenic, hypothermic, hypotensive. Etiology of sepsis unclear. Likely multifactorial with dehydration, poor PO intake, probable infection, adrenal insufficiency, and poor reserves. Lactate < 2. Procal negative. VBG without acid-base disturbance. Ammonia 24. Random cortisol - 9.87. TSH 8.41. Inadequate response to acute stressor. CT Head per my read with diffuse brain atrophy, no obvious bleed. Formal read pending. Infectious source unclear - likely pulmonary. CXR extremely poor quality. CT Chest pending. BioFire, blood cultures, and MRSA nares pending. Started on empiric abx. blood cultures pending CT Chest, CT Head ordered MRSA nares and BioFire pending, Utox ordered started on cefepime and empiric vanc stress dose steroids vasopressive support with levophed sedation with fentanyl/propofol while intubated Patient with clinical deterioration with hypotension and respiratory failure as outlined above - now requiring ICU level care with mechanical ventilation and v asopressive support. Hospitalist team will continue to follow along with patient's care. (2) Acute hypotension: Plan: Patient on levophed - titration per protocol. Goal MAP > 65. (3) Adrenal insufficiency: Plan: Insufficient cortisol response to stressor. Start hydrocortisone 100 mg now with 50 mg Q6H after. Continue to monitor. (4) Respiratory failure: Plan: s/p intubation in the ED by Dr. Parra. Appropriate placement confirmed. Continue mechanical ventilation. (5) Elevated troponin I level: Plan: Peaked 22.4. Likely demand. (6) Acute dehydration: Plan: Fluid resuscitated with 3 L. Likely contributory, but not main cause of hypotension. (7) Hypothermia: Plan: Continue Sean Hugger. If needed could trial fluid warmer. (8) Hypernatremia: Plan: Mild hypernatremia. Continue to monitor. (9) Severe dementia: Plan: Hold home dementia medications while intubated. (10) Airway clearance impairment: Plan: Unable to protect airway. Intubated as above. Continue with mechanical ventilation (11) Encephalopathy: Plan: See above (12) CAD (coronary artery disease): Plan: s/p CABG x 4. Hold home metoprolol, statin, ASA Plan Code status: full DVT ppx: INR 1.3. 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 present at bedside provides the entirety of the history. Patient with thick mucous/cold like symptoms about 3 days ago. Has been more tired and PO intake has been minimal. Patient was found to be hypotensive SBP in the 80s at the [facility]. Patient was also hypothermic at that time. Patient was started on cefepime and IVF in the ED for presumed sepsis. Blood cultures drawn. UA concentrated without signs of infection. CXR a difficult read due to rotation. Started on Sean hugger for T 32.7 C. Initially placed orders for PCU/Tele status as MAPs > 70 and patient awake. Was called to C10 multiple times by ED nursing. Patient with witnessed apnea. Patient with hypotension. He was started on vasoactive agents for BP support. Decision was made to intubate patient as he was not protecting his airway. Confirmed code status with . Discussed case with Joce Waggoner CULTURAL CENTRE MANAGER on the site safety coordinator service. ETT, central line, and OGT placed. Patient moved to the ICU. Allergies Allergy/AdvReac Type Severity Reaction Status Date / Time No Known Allergies Allergy Verified 09/11/23 01:00 Home Medications Medication Instructions Recorded Confirmed Type Saccharomyces boulardii 250 mg 250 mg PO QAM 02/09/23 09/11/23 History capsule (Florastor) acetaminophen 325 mg tablet 650 mg PO Q4 PRN Fever Or Pain 02/09/23 09/11/23 History (Tylenol) aspirin 81 mg chewable tablet 81 mg PO QAM 02/09/23 09/11/23 History cholecalciferol (vitamin D3) 25 50 mcg PO DAILY 02/09/23 09/11/23 History mcg (1,000 unit) tablet (Vitamin D3) cyanocobalamin (vitamin B-12) 500 500 mcg PO DAILY 02/09/23 09/11/23 History mcg tablet (Vitamin B-12) docusate sodium 100 mg tablet 100 mg PO Q24H PRN 02/09/23 09/11/23 History Constipation-GIVE ON DAY 2 IN NO BM doxazosin 1 mg tablet 1 mg PO HS 02/09/23 09/11/23 History escitalopram oxalate 10 mg tablet 15 mg PO QAM 02/09/23 09/11/23 History levothyroxine 50 mcg tablet 50 mcg PO QAM 02/09/23 09/11/23 History metoprolol tartrate 50 mg tablet 50 mg PO BID 02/09/23 09/11/23 History multivitamin 1 tab PO DAILY 02/09/23 09/11/23 History nitroglycerin 0.4 mg sublingual 0.4 mg sublingual DIRECTED PRN 02/09/23 09/11/23 History tablet Chest Pain polyethylene glycol 3350 17 gram 17 g PO .Q3DAYS 02/09/23 09/11/23 History oral powder packet (Miralax) sennosides 8.6 mg-docusate sodium 1 tab-cap PO AMHS 02/09/23 09/11/23 History 50 mg tablet (Senna-S) simvastatin 20 mg tablet 20 mg PO QPM 02/09/23 09/11/23 History risperidone 1 mg/mL oral solution 0 mg PO HS 09/11/23 09/11/23 History sodium chloride 0.65 % nasal spray 2 spray NA Q2H PRN DRY 09/11/23 09/11/23 History aerosol (Saline Mist) NOSE/EPISTAXIS Past Med/Surg History Problem List Airway clearance impairment Adrenal insufficiency Sepsis Encephalopathy Respiratory failure (Acute) Elevated troponin I level (Acute) Acute hypotension (Acute) Acute dehydration (Acute) Hypothermia (Acute) Delirium Hypernatremia Goals of care, counseling/discussion Severe dementia Paroxysmal atrial fibrillation Kidney stone on right side Abdominal pain (Acute) LIAT (acute kidney injury) (Acute) Acute kidney injury Dehydration Hypotension Dementia History of coronary artery bypass graft 2001/CABG 4 VESSELS done at [place] CKD (chronic kidney disease), stage III Hypothyroidism Pacemaker 10/2018 -- [employer] follows dr simpson last check - 02/2019 Cognitive change (Chronic) 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) Impaired fasting glucose (Chronic) Dyslipidemia (Chronic) 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) Hypertension (Chronic) Kidney stone on right side (Chronic) CAD (coronary artery disease) (Chronic) Kyphoscoliosis (Chronic) Multiple pulmonary nodules (Chronic) found on xray and no problems just watch Medical History Acute hypotension Short-term memory loss Kidney stone 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 Sinus bradycardia Encounter for pre-operative examination Raynauds syndrome MILD (EFFECTING FINGERS) Hypertension Hyperlipidemia Cellulitis of left hand Surgical History History of tonsillectomy History of inguinal hernia repair Hx of hernia repair repair of inguinal hernia History of cataract surgery RT/ LT History of colonoscopy Blocked tear duct repair of of tear duct History of cardiac cath 02/2002 and then needed cabg x 4 Family History Sister Family history of diabetes mellitus Hypertension Family/Other Family history of diabetes mellitus Father Acute myocardial infarction Denies family history of Ovarian cancer Prostate cancer Myocardial infarction Breast cancer Colorectal cancer Social History Smoking Status: Unknown if ever smoked Second Hand Exposure: No; Do You Dip or Chew Tobacco: No (pt intubated); Tobacco Cessation Education Requested by Patient: No Hx Alcohol Use: No Hx Substance Use: No Preferred Language: Polish Communication Ability: Impaired Communication Ability Comment: pt intubated Visual Impairment: Limited Hearing Ability: Normal 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 Beliefs That Will Affect Care: None marital status: Current Living Situation: Jail Current Living Situation Comment: lives at [facility] current occupational status: retired How many Children do You have: 2 Other Information That Helps Us Care for You: No Feels Safe at Home: Yes Safety Concerns: Feels Safe At This Time Childhood Exposure to Second-Hand Smoke: No caffeine: Yes (coffee and sometimes tea ) Dental Care, Regularly: Yes Physical Activity Frequency: Daily Physical Activity Frequency Comment: walks 40 mins a day Seatbelt Use: always Sunscreen Use: Yes Assistive Devices: Mechanical Lift and Wheelchair Results & Data Results & Data Vital Signs (Past 12 Hours) Vital Signs Temp Pulse Pulse Resp BP BP Pulse Ox 09/10/23 23:45 32.9 C L 60 16 90/67 L 100 09/10/23 23:11 60 16 115/83 100 09/10/23 23:11 60 16 100 09/10/23 22:52 75 09/10/23 22:35 32.8 C L 60 12 88/68 L 100 O2 Del Method O2 Flow Rate 09/10/23 23:45 Nasal Cannula 2 09/10/23 23:11 Nasal Cannula 2 09/10/23 23:11 Nasal Cannula 2 09/10/23 22:52 09/10/23 22:35 Nasal Cannula 2 Supervising Physician Co-Signing Physician Notes Patient seen and examined, chart reviewed, case discussed with Dr. High and I agree with the assessment and plan as above Resident Activity Tracking Resident Involvement: Resident Care Provided Care Provided: Adult Hospital Medicine (4) Respiratory failure Chronicity: acute Respiratory failure complication: hypoxia Qualified Code(s): J96.01 - Acute respiratory failure with hypoxia (7) Hypothermia Encounter type: initial encounter Qualified Code(s): T68.XXXA - Hypothermia, initial encounter (12) CAD (coronary artery disease) Associated angina: without angina Coronary Disease-Associated Artery/Lesion type: bypass graft [place] vs. transplanted heart: [place] heart Qualified Code(s): I25.810 - Atherosclerosis of coronary artery bypass graft(s) without angina pectoris
[2023-09-11] MEDS ORDERED: STAT IV Infusion **Titration per Protocol STA ×2 (01:46→02:19)
[2023-09-11] MEDS: LACTATED RINGER'S 500 ML IV ONE (01:50)
[2023-09-11 01:52] LABS: Troponin I High Sensitivity 17.7 pg/ml (0-20)
[2023-09-11] MEDS: NOREPINEPHRINE/D5W 4 MG/250 ML PLCT IV SCH (01:59)
[2023-09-11] MEDS ORDERED: VANCOMYCIN CONSULT ACTIVE PRN (02:03)
[2023-09-11] MEDS: RAPID SEQUENCE INDUCTION BAG ONE (02:10)
[2023-09-11] MEDS ORDERED: PROPOFOL BOLUS FROM BAG IV PRN (02:19)
[2023-09-11] MEDS ORDERED: fentaNYL BOLUS from BAG IV PRN (02:19)
[2023-09-11 02:29] LABS: Thyroid Stimulating Hormone 8.41 uIu/ml (0.300-4.500)
[2023-09-11] MEDS: fentaNYL citrate 2,500 MCG/250 ML BAG IV SCH (02:32)
[2023-09-11] MEDS: propofoL 1,000 MG/100 ML VIAL IV SCH (02:32)
[2023-09-11] MEDS: PROPOFOL IV EMULSION 10 MG/ML 100 ML VIAL IV ONE (02:47)
--- NOTE | 2023-09-11 02:47 | Procedure Note ---
Procedure Note Date of Service September 11, 2023 Note INTERNAL JUGULAR CENTRAL LINE PROCEDURE NOTE: Procedure: Internal Jugular Central Line Placement Procedrualist: Dixon CHRISTINE ([employer]) Attending: Dr. Castillo Indication: Central Drug Administration, Poor Venous Access, Multiple Lab Draws Necessary, etc. Anesthesia: [x]Lidocaine 1% and Fentanyl infusion Emergent Consent was implied as patient was with poor vascular access and with increasing vasoactive medications. was briefed on need, immediate risks and benefits. Benefits outweigh risks at this time A time-out was completed verifying correct patient, procedure, site, positioning, and implants(s) or special equipment if applicable. Patients RIGHT Neck was cleansed and draped in the typical sterile fashion using Chloraprep. The Internal Jugular Vein and Carotid Artery were identified using ultrasound. The superficial tissue was anesthetized using 4 mL of 1% lidocaine without epinephrine under direct visualization with the ultrasound. After adequate anesthetization was achieved, the Internal Jugular vein was cannulated under direct ultrasound guidance using an introducer needle on a syringe. Good venous blood return was maintained prior to removal of syringe from introducer needle. Using Seldinger Technique, a guide wire was advanced through the introducer needle without resistance. The introducer needle was removed and ultrasound images were obtained of the guide wire within the Internal Jugular Vein. A small incision was made in penetrating fashion at the guide wire insertion site utilizing an 11 blade scalpel. The dilator was advanced to the vessel without resistance. The dilator was exchanged for the triple lumen catheter which was advanced into the vessel without resistance. The guide wire was removed intact from the catheter without issue. Claves were placed on each catheter tip with confirmation of good blood flow from each lumen. Each port was easily flushed with sterile saline. The catheter was placed at 18 cm and sutured in place. BioPatch was applied to the catheter and a sterile Tegaderm dressing was applied over the catheter with careful attention to sterility. Patient tolerated procedure well. Patient did develop hemtoma following dilation, this decreased with direct pressure and placement of hemostatic gauze under sterility. Post procedure x-ray was completed, placement was appropriate and no pneumothorax was noted. Images obtained are NOT saved for permanent record as this was urgent/emergent Artery AND Vein visualized: YES Compressible Vein: YES Guidewire or Short Catheter seen in vein prior to dilation: YES Images obtained are NOT saved for permanent record. Coding CPT Codes Tubes, Drains, and Vasc Access - Tubes, Drains, and Vasc Access: [id number] Insertion Of Non-tunneled Catheter Age 5 Yrs> ([id number]) [facility] [place] Procedure Codes (Charges) Tubes, Drains, and Vasc Access Procedure 1: Tubes, Drains, and Vasc Access: [id number] Insertion Of Non-tunneled Catheter Age 5 Yrs>
--- NOTE | 2023-09-11 02:47 | Procedure Note ---
Procedure Note Date of Service September 11, 2023 Note ARTERIAL LINE PROCEDURE NOTE: Procedure: Arterial Line Placement Proceduralist: Dixon CHRISTINE ([facility] Attending: Dr. Castillo Indication: Monitoring on Pressors Anesthesia: [x]Lidocaine 1% Emergent Consent was implied as patient is with escalating vasopressor needs and is full CODE. Benefits outweigh Risk at this time A time-out was completed verifying correct patient, procedure, site, Allens test was performed to ensure adequate perfusion. Patients wrist was prepped and draped in the usual sterile fashion. Ultrasound guidance was used to aid needle placement. A 20g Arrow arterial line was introduced into the LT RADIAL artery. 2 attempts were with flash and following wire threading without resistance catheter was threaded and backed out with inability to maintain brisk blood flow. Moved distally under ultrasound guidance brisk blood return was noted, the wire was advanced without resistance. The Catheter was threaded, and the needle was removed with appropriate blood return. Good waveform was observed. The patient tolerated the procedure well. No immediate complications were noted. The line was secured with suture and covered with sterile dressing Blood Loss: Minimal Complications: None Procedural Ultrasound Guidance: Procedure Date: 09/11/23 Indication: Direct Visualization of Arterial line placement Artery Identified: YES Complications: NONE Patient tolerated procedure: WELL Images not saved to the permanent record Coding CPT Codes Tubes, Drains, and Vasc Access - Tubes, Drains, and Vasc Access: [id number] Arterial Cath/Cannulation Sampling/Monitoring/Transfusion ([id number]) [facility] [place] Procedure Codes (Charges) Tubes, Drains, and Vasc Access Procedure 1: Tubes, Drains, and Vasc Access: [id number] Arterial Cath/Cannulation Sampling/Monitoring/Transfusion
--- NOTE | 2023-09-11 02:47 | Critical Care Progress Note ---
Date of Service September 11, 2023 Results & Data Results & Data Vital Signs (Past 12 Hours) Vital Signs Temp Pulse Pulse Resp BP BP Pulse Ox 09/11/23 02:40 09/11/23 02:33 18 100 09/11/23 01:15 32.7 C L 60 15 96 09/11/23 01:15 94/68 L 09/11/23 01:03 32.7 C L 60 18 97 09/11/23 01:00 90/60 L 09/11/23 00:51 32.7 C L 60 15 97 09/11/23 00:48 32.7 C L 60 17 97 09/11/23 00:33 32.8 C L 60 14 96 09/11/23 00:18 32.9 C L 60 15 98 09/10/23 23:45 32.9 C L 60 16 90/67 L 100 09/10/23 23:11 60 16 115/83 100 09/10/23 23:11 60 16 100 09/10/23 22:52 75 09/10/23 22:35 32.8 C L 60 12 88/68 L 100 O2 Del Method O2 Flow Rate FiO2 09/11/23 02:40 40 09/11/23 02:33 60 09/11/23 01:15 09/11/23 01:15 09/11/23 01:03 09/11/23 01:00 09/11/23 00:51 09/11/23 00:48 09/11/23 00:33 09/11/23 00:18 09/10/23 23:45 Nasal Cannula 2 09/10/23 23:11 Nasal Cannula 2 09/10/23 23:11 Nasal Cannula 2 09/10/23 22:52 09/10/23 22:35 Nasal Cannula 2 Coding
[2023-09-11] MEDS: fentaNYL citrate 2,500 MCG/250 ML BAG IV ONE (02:48)
[2023-09-11] MEDS: OPTIRAY 320 100ml IV ONE (03:15)
--- NOTE | 2023-09-11 03:18 | Critical Care Consultation ---
Date of Consultation September 11, 2023 Assessment & Plan (1) Encephalopathy: (2) Severe dementia: (3) CKD (chronic kidney disease), stage III: (4) Hypothyroidism: (5) Pacemaker: (6) Sepsis: Plan Reason Critically Ill: 88 YOM with end stage dementia- encephalopathic with apneic respirations requiring emergent intubation, he remained hypotensive despite crystalloid resuscitation requiring vasopressor infusions. Neuro - Encephalopathy, end stage dementia, Sedation for mechanical ventilation CAM ICU: Negative - Patient encephalopathy multifactorial at this time to include base line dementia worsened by metabolic/septic encephalopathy - Head CT pending - TSH pending - Ammonia pending - Sedation goal OLVIN -2- Fentanyl and Propofol if needed Cardiac - Shock, sepsis, CAD, PPM - Shock multifactorial at this time to include hypovolemic and likely sepsis from aspiration - Levophed for MAPS >65 - Random cortisol-9 will add stress dose steroids - Follow hemodynamics and urine output and POCUS exam for further volume resu scitation needs - 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, DDDR currently AV paced with appropriate fire and capture at rate of 60 - CAD with 4v CABG 2001- asa currently with elevated INR and bleeding - Troponin negative on arrival - ECHO FEB 2023- EF 50-55% without RWMA mild MR, TAPSE >1.5 (nml) Respiratory - Respiratory failure requiring emergent intubation, Aspiration - Patient with respiratory failure requiring emergent intubation secondary to inability to protect airway and ineffective ventilation pattern - Noted pill fragments and bilious secretions in hypopharynx - CT chest pending for better evaluation of lungs as CXR poor with kyphosis - Respiratory viral BIOFIRE - ABG as needed GI - Elevated INR - Elevated INR with normal LFTs- on no blood thinners other than ASA - bili elevated to 1.3 was up in FEB- will obtain RUQUS - OGT to LIWS - No dark or blood in stools reported by - enteral feeds when vasopressor requirements are less RENAL/LYTES - LIAT on CKD III - BUN elevated [employer] at baseline- likely pre-renal at this time - mild hypernatremia on labs - BPH - de luna placed continue while requiring vasopressor support and intubated and sedated ENDO - Hypothyroidism, adrenal insufficiency - Continue Synthroid- TSH pending - Relative insufficiency in light of acute illness- will start hydrocortisone 100mg now and 50mg q6h HEME - Thrombocytopenia - - Platelet count 110s - Noted easy bleeding with suctioning of airway and with hematoma post CVL placement and hematomas at previous IV stick sites - INR 1.3 - Type and screen transfuse as indicated - No evidence of active bleeding noted on exam or HPI - Likely secondary to sepsis at this time ID - Septic shock - SIRS with likely aspiration event, and vasopressor requirement. - WBC <5, hypothermia, hypotension, End organ dysfunction of liver (elevated INR), brain - Blood cultures pending. UA negative - Continue Vancomycin and Cefepime- Flagyl x1 for possible GI involvment - Continue to look for other causes LINES/IV ACCESS - CVL, ETT, OGT, [place], De Luna Continue use of these lines DVT PROPHYLAXIS - SCDS- hold chemoprophy at this time to trend INR in am DISPO: ICU while intubated and sedated requiring vasopressor requirements. I have personally spent 60 minutes of critical care time in the direct management of this patient. This is a life/limb threatening event. This includes time spent evaluating patient, direct bedside care, chart review, placing orders, interpretation of diagnostic studies, discussion with consultants, patient, and family members, as well as other required patient management activities. This time is exclusive of all separately billable procedures, and teaching time and separate from and in addition to any other critical care service time. Thank you for allowing us to participate in the care of this patient. Please refer to my attending physician's documentation for any further recommendations. History of Present Illness Reason for Consultation: encephalopathy, hypotension requiring vasopressor agents Requesting Physician: Alisha Yates DO Attending Physician: Alisha Yates DO History of Present Illness 88 YOM with medical history of: end stage dementia, CKD, Hypothyroidism, BPH, HLD, Presence of pacemaker, CAD. Patient was brought to the EMD today for concerns of worsening mentation at home via EMS. He is accompanied by his , who reports that this was a sudden change in him today. In the EMD the patient was persistently hypotensive in light of 3L crystalloid bolus, was started on broad spectrum antibiotics with Cefepime and Vancomycin. Manuel also required push dose pressors prior to my evaluation. He was initiated on Levophed as well. On my arrival patient was obtunded, mild facial grimace to pain, with periods of apneic breathing with RR decreasing to the 4-6 range. As he was unable to protect his airway as well as requiring vasopressor support, decision was made to intubate the patient with the [facility] physician Dr. Parra. Code status was discussed by EM provider on arrival, the admitting team, and myself. would like him to receive full support while she gets in touch with her children. Patient was noted to have pill fragments in hypopharynx and bile in hypopharynx requiring suction prior to intubation. CT head and Chest are pending on arrival to the ICU. CODE: FULL Allergies Allergy/AdvReac Type Severity Reaction Status Date / Time No Known Allergies Allergy Verified 09/11/23 01:00 Home Medications Medication Instructions Recorded Confirmed Type Saccharomyces boulardii 250 mg 250 mg PO QAM 02/09/23 09/11/23 History capsule (Florastor) acetaminophen 325 mg tablet 650 mg PO Q4 PRN Fever Or Pain 02/09/23 09/11/23 History (Tylenol) aspirin 81 mg chewable tablet 81 mg PO QAM 02/09/23 09/11/23 History cholecalciferol (vitamin D3) 25 50 mcg PO DAILY 02/09/23 09/11/23 History mcg (1,000 unit) tablet (Vitamin D3) cyanocobalamin (vitamin B-12) 500 500 mcg PO DAILY 02/09/23 09/11/23 History mcg tablet (Vitamin B-12) docusate sodium 100 mg tablet 100 mg PO Q24H PRN 02/09/23 09/11/23 History Constipation-GIVE ON DAY 2 IN NO BM doxazosin 1 mg tablet 1 mg PO HS 02/09/23 09/11/23 History escitalopram oxalate 10 mg tablet 15 mg PO QAM 02/09/23 09/11/23 History levothyroxine 50 mcg tablet 50 mcg PO QAM 02/09/23 09/11/23 History metoprolol tartrate 50 mg tablet 50 mg PO BID 02/09/23 09/11/23 History multivitamin 1 tab PO DAILY 02/09/23 09/11/23 History nitroglycerin 0.4 mg sublingual 0.4 mg sublingual DIRECTED PRN 02/09/23 09/11/23 History tablet Chest Pain polyethylene glycol 3350 17 gram 17 g PO .Q3DAYS 02/09/23 09/11/23 History oral powder packet (Miralax) sennosides 8.6 mg-docusate sodium 1 tab-cap PO AMHS 02/09/23 09/11/23 History 50 mg tablet (Senna-S) simvastatin 20 mg tablet 20 mg PO QPM 02/09/23 09/11/23 History risperidone 1 mg/mL oral solution 0 mg PO HS 09/11/23 09/11/23 History sodium chloride 0.65 % nasal spray 2 spray NA Q2H PRN DRY 09/11/23 09/11/23 H istory aerosol (Saline Mist) NOSE/EPISTAXIS Patient History Medical History Acute hypotension Short-term memory loss Kidney stone 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 Sinus bradycardia Encounter for pre-operative examination Raynauds syndrome MILD (EFFECTING FINGERS) Hypertension Hyperlipidemia Cellulitis of left hand Surgical History History of tonsillectomy History of inguinal hernia repair Hx of hernia repair repair of inguinal hernia History of cataract surgery RT/ LT History of colonoscopy Blocked tear duct repair of of tear duct History of cardiac cath 02/2002 and then needed cabg x 4 Family History Sister Family history of diabetes mellitus Hypertension Family/Other Family history of diabetes mellitus Father Acute myocardial infarction Denies family history of Ovarian cancer Prostate cancer Myocardial infarction Breast cancer Colorectal cancer Social History Smoking Status: Unknown if ever smoked Second Hand Exposure: No; Do You Dip or Chew Tobacco: No (pt intubated); Tobacco Cessation Education Requested by Patient: No Hx Alcohol Use: No Hx Substance Use: No Preferred Language: Nepali Communication Ability: Impaired Communication Ability Comment: pt intubated Visual Impairment: Limited Hearing Ability: Normal Highway Inspector Required: No Beliefs That Will Affect Care: None marital status: Current Living Situation: Prison Current Living Situation Comment: lives at [facility] current occupational status: retired How many Children do You have: 2 Other Information That Helps Us Care for You: No Feels Safe at Home: Yes Safety Concerns: Feels Safe At This Time Childhood Exposure to Second-Hand Smoke: No caffeine: Yes (coffee and sometimes tea ) Dental Care, Regularly: Yes Physical Activity Frequency: Daily Physical Activity Frequency Comment: walks 40 mins a day Seatbelt Use: always Sunscreen Use: Yes Assistive Devices: Wheelchair Review of Systems Review of Systems: unable to be performed secondary to mental status and limited information from the . Physical Exam Physical Exam: General: obtunded, apneic Head: Normocephalic, atraumatic ENT: pill fragments and bilious secretions noted in hypopharynx, mucous membranes dry Neuro: Patient contracted laying on his sided kyphotic, pupils sluggish but equal bilaterally, grimace to pain, moved bilateral upper arms to pain does not localize Chest: equal rise and fall of the chest, shallow respirations, lungs coarse bilaterally Cardiac: Regular rate and rhythm, telemetry reviewed- AV paced at 60, skin cool and dry, cap refill >3 seconds, peripheral pulses +2, no murmur, +3 pitting edema to bilateral feet and legs GI: NABS x 4 quadrants, soft, hernia noted in epigastrium, nontender to palpation, no rebound, guarding or tenderness : de luna to gravity draining dark diana urine Skin: no rash or erythema Results & Data Results & Data Vital Signs (Past 12 Hours) Vital Signs Temp Pulse Pulse Resp BP BP Pulse Ox 09/11/23 02:40 09/11/23 02:33 18 100 09/11/23 01:15 32.7 C L 60 15 96 09/11/23 01:15 94/68 L 09/11/23 01:03 32.7 C L 60 18 97 09/11/23 01:00 90/60 L 09/11/23 00:51 32.7 C L 60 15 97 09/11/23 00:48 32.7 C L 60 17 97 09/11/23 00:33 32.8 C L 60 14 96 09/11/23 00:18 32.9 C L 60 15 98 09/10/23 23:45 32.9 C L 60 16 90/67 L 100 09/10/23 23:11 60 16 115/83 100 09/10/23 23:11 60 16 100 09/10/23 22:52 75 09/10/23 22:35 32.8 C L 60 12 88/68 L 100 O2 Del Method O2 Flow Rate FiO2 09/11/23 02:40 40 09/11/23 02:33 60 09/11/23 01:15 09/11/23 01:15 09/11/23 01:03 09/11/23 01:00 09/11/23 00:51 09/11/23 00:48 09/11/23 00:33 09/11/23 00:18 09/10/23 23:45 Nasal Cannula 2 09/10/23 23:11 Nasal Cannula 2 09/10/23 23:11 Nasal Cannula 2 09/10/23 22:52 09/10/23 22:35 Nasal Cannula 2 Laboratory Results Abnormal lab results 09/10/23 09/10/23 09/11/23 Range/Units 22:50 23:40 01:12 WBC 3.37 L (4.8-10.8) K/ul RBC 3.78 L (4.70-6.10) M/uL Hgb 10.9 L (14.0-18.0) g/dl Hct 35.3 L (42.0-52.0) % MCHC 30.9 L (32.0-36.0) g/dL RDW Std Deviation 71.7 H (36.4-46.3) fL RDW Coeff of Layo 21.4 H (11.5-14.5) % Plt Count 112 L (130-400) K/uL Neut # (Auto) 1.26 L (1.40-6.50) K/uL PT 13.4 H (9.0-12.0) Seconds INR 1.3 H (0.9-1.1) APTT 36 H (21-31) Seconds Sodium 147 H (136-145) mmol/L Chloride 114 H (98-107) mmol/L BUN 52 H (6-23) mg/dl BUN/Creatinine Ratio 60.5 H (10-20) Total Bilirubin 1.2 H (0.2-1.0) mg/dl Direct Bilirubin 0.3 H (0-0.2) mg/dl Alkaline Phosphatase 113 H (34-104) U/L Troponin I High Sens 22.4 H (0-20) pg/ml Albumin 3.0 L (3.4-5.0) gm/dl TSH 8.410 H (0.300-4.500) uIu/ml Urine Protein Trace H (Negative) Diagnostic Findings Chest CT 09/11/23 02:01 Exam(s): CT CHEST W/WO Contrast IV Amt: 93 cc's optiray 320 EXAM: CT Chest Without and With Intravenous Contrast CLINICAL HISTORY: Reason for exam: apnea. TECHNIQUE: Axial computed tomography images of the chest without and with intravenous contrast. Automated exposure control was utilized for the study. A dose lowering technique was utilized adhering to the principles of ALARA. CONTRAST: Patient received 93 cc's optiray 320 of IV contrast COMPARISON: No relevant prior studies available. FINDINGS: Lungs: Dependent airspace consolidations, preferentially involving the RIGHT middle lobe and LEFT lower lobe, consistent with aspiration pneumonia. No mass. Pleural space: Small bilateral parapneumonic effusions. Heart: Unremarkable. No cardiomegaly. No significant pericardial effusion. No significant coronary artery calcifications. Bones/joints: Degenerative changes of the spine. Soft tissues: Unremarkable. Vasculature: Atherosclerotic changes of the aorta. No thoracic aortic aneurysm. Lymph nodes: Unremarkable. No enlarged lymph nodes. Tubes, lines and devices: Endotracheal tube terminates in the trachea. Feeding tube terminates in the stomach. IMPRESSION: 1. Dependent airspace consolidations, preferentially involving the RIGHT middle lobe and LEFT lower lobe, consistent with aspiration pneumonia. 2. Small bilateral parapneumonic effusions. 3. Endotracheal tube terminates in the trachea. Electronically signed by: Jacinto Linda MD 09/11/23 05:[address] 09/11/23 02:01 Exam(s): CT HEAD Without Contrast EXAM: CT Head Without Intravenous Contrast CLINICAL HISTORY: Reason for exam: ams. TECHNIQUE: Axial computed tomography images of the head/brain without intravenous contrast. Automated exposure control was utilized for the study. A dose lowering technique was utilized adhering to the principles of ALARA. COMPARISON: No relevant prior studies available. FINDINGS: No acute intracranial hemorrhage. No midline shift or mass effect. The territorial perez-white matter differentiation is maintained throughout. Age-related cerebral volume loss. Periventricular and subcortical white matter hypoattenuation, consistent with chronic microangiopathy. The visualized orbits appear grossly unremarkable. The calvarium is intact. Paranasal sinus mucosal thickening. IMPRESSION: No acute intracranial hemorrhage, midline shift, or mass effect. Electronically signed by: Jacinto Linda MD 09/11/23 04:04 AM Medications Administered Norepinephrine Bitartrate (Levophed/D5w) 4 mg in 250 mls @ 13.125 mls/hr IV .Q19H3M JENNIFER; Protocol Stop: 10/11/23 01:59 Last Admin: 09/11/23 01:59 Dose: 0.05 mcg/kg/min, 13.1 mls/hr Documented By: DUNCAN Co-signed By: KELSEA Fentanyl Citrate (Fentanyl Citrate) 2,500 mcg in 250 mls @ 10 mls/hr IV .Q25H JENNIFER; Protocol Stop: 09/25/23 02:29 Last Titration: 09/11/23 02:34 Dose: 100 mcg/hr, 10 mls/hr Documented By: KELSEA Co-signed By: ALEXANDRE Admin: 09/11/23 02:32 Dose: 25 mcg/hr, 2.5 mls/hr Documented By: KELSEA Co-signed By: DUNCAN Propofol (Diprivan) 1,000 mg in 100 mls @ 8.4 mls/hr IV .[id number] [facility]; Protocol Stop: 09/14/23 02:29 Last Admin: 09/11/23 02:32 Dose: 20 mcg/kg/min, 8.4 mls/hr Documented By: KELSEA Co-signed By: DUNCAN Discontinued Medications Fentanyl Citrate (Fentanyl Citrate 2,500 Mcg/250 Ml Bag) Confirm Administered Dose 2,500 mcg IV .STK-MED ONE Stop: 09/11/23 02:21 Last Admin: 09/11/23 02:48 Dose: Not Given Documented By: KELSEA Sodium Chloride (Nss) 1,000 mls @ 999 mls/hr IV .Q1H1M ONE Stop: 09/11/23 00:10 Last Infusion: 09/11/23 00:45 Dose: Infused Documented By: Admin: 09/10/23 23:39 Dose: 999 mls/hr Documented By: DUNCAN Sodium Chloride (Nss) 1,000 mls @ 999 mls/hr IV .Q1H1M ONE Stop: 09/11/23 01:05 Last Admin: 09/11/23 00:42 Dose: 999 mls/hr Documented By: SARAH Cefepime HCl (Maxipime) 2,000 mg in 20 mls @ 5 mls/min IV NOW [facility]; Protocol Stop: 09/11/23 00:08 Last Admin: 09/11/23 00:44 Dose: 5 mls/min Documented By: AN Sodium Chloride (Nss) 500 mls @ 999 mls/hr IV .Q31M ONE Stop: 09/11/23 01:05 Last Infusion: 09/11/23 01:26 Dose: Infused Documented By: Admin: 09/11/23 00:44 Dose: 999 mls/hr Documented By: AN Lactated Ringer's (Lr) 500 mls @ 999 mls/hr IV .Q31M ONE Stop: 09/11/23 02:16 Last Infusion: 09/11/23 02:25 Dose: Infused Documented By: Admin: 09/11/23 01:50 Dose: 999 mls/hr Documented By: KELSEA Miscellaneous (Rapid Sequence Induction Bag) Confirm Administered Dose 1 each N/A .STK-MED ONE Stop: 09/11/23 02:06 Last Admin: 09/11/23 02:10 Dose: 1 each Documented By: KELSEA Propofol (Propofol Iv Emulsion 10 Mg/Ml 100 Ml Vial) Confirm Administered Dose 1,000 mg IV .STK-MED ONE Stop: 09/11/23 02:20 Last Admin: 09/11/23 02:47 Dose: Not Given Documented By: KELSEA ECG Additional Comments: AV dual-paced rhythm Abnormal ECG When compared with ECG of 09-FEB-2023 12:42, Premature ventricular complexes are no longer Present Coding Level of Care Code 93421 CRITICAL CARE 1ST 30-74M Diagnoses Encephalopathy G93.40 Severe dementia F03.C0 CKD (chronic kidney disease), stage III N18.30 Hypothyroidism E03.9 Pacemaker Z95.0 Sepsis A41.9
[2023-09-11 03:23] LABS: T4 Free Thyroxine 1.19 ng/dl (0.61-1.60)
[2023-09-11] MEDS ORDERED: SODIUM CHLORIDE 0.65% NA SOLN 45 ML (OCEAN) PRN (03:47)
[2023-09-11] MEDS ORDERED: DOCUSATE SODIUM 100 MG CAP PO PRN (03:47)
[2023-09-11] MEDS ORDERED: MAGNESIUM HYDROXIDE SUSP 30 ML UDC PO PRN (03:47)
[2023-09-11] MEDS ORDERED: ALUMINUM/MAGNESIUM SUSP 30 ML UDC PO PRN (03:47)
[2023-09-11] MEDS: VANCOMYCIN HCL 1,750 MG in SODIUM CHLORIDE 0.9% 500 ML IV STA (04:04)
--- NOTE | 2023-09-11 04:05 | CT Scan Report ---
Exam(s): CT HEAD Without Contrast EXAM: CT Head Without Intravenous Contrast CLINICAL HISTORY: Reason for exam: ams. TECHNIQUE: Axial computed tomography images of the head/brain without intravenous contrast. Automated exposure control was utilized for the study. A dose lowering technique was utilized adhering to the principles of ALARA. COMPARISON: No relevant prior studies available. FINDINGS: No acute intracranial hemorrhage. No midline shift or mass effect. The territorial perez-white matter differentiation is maintained throughout. Age-related cerebral volume loss. Periventricular and subcortical white matter hypoattenuation, consistent with chronic microangiopathy. The visualized orbits appear grossly unremarkable. The calvarium is intact. Paranasal sinus mucosal thickening. IMPRESSION: No acute intracranial hemorrhage, midline shift, or mass effect. Electronically signed by: Jacinto Linda MD 09/11/23 04:04 AM
[2023-09-11] MEDS: HYDROCORTISONE SOD SUCCINATE 100 MG/2 ML VIAL IV STA (04:13)
[2023-09-11 04:19] LABS: Basophils # (auto) 0.03 K/uL (0.00-0.20); Basophils % (auto) 1.1 %; Eosinophils % (auto) 3.7 %; Hematocrit (blood only) 28.5 % (42.0-52.0); Hemoglobin 9.2 g/dl (14.0-18.0); Immature Granulocytes # (auto) 0.01 K/uL (0.01-0.20); Immature Granulocytes % (auto) 0.4 %; Lymphocytes # (auto) 0.79 K/uL (1.20-3.40); Lymphocytes % (auto) 29.6 %; Mean Corpuscular Hemoglobin 28.9 pg (25.0-34.0); Mean Corpuscular Hgb Conc 32.3 g/dL (32.0-36.0); Mean Corpuscular Volume 89.6 fL (80.0-100.0); Mean Platelet Volume 12.5 fL (9.4-12.4); Monocytes # (auto) 0.33 K/uL (0.11-0.59); Monocytes % (auto) 12.4 %; Neutrophils # (auto) 1.41 K/uL (1.40-6.50); Neutrophils % (auto) 52.8 %; Nucleated RBC # (auto) 0.02 K/uL (0.00-0.12); Nucleated RBC % (auto) 0.7 %; Platelet Count 110 K/uL (130-400); RDW Coefficient of Variation 20.8 % (11.5-14.5); RDW Standard Deviation 67.9 fL (36.4-46.3); Red Blood Count 3.18 M/uL (4.70-6.10); White Blood Count 2.67 K/ul (4.8-10.8)
[2023-09-11 04:35] LABS: iSTAT Allen Test Pass; iSTAT Art Bld Gas pCO2 Correct 22 mmHg (35-46); iSTAT Art Bld Gas pH Corrected 7.568 (7.35-7.45); iSTAT Arterial Blood Gas HCO3 21 meg/L (19-24); iSTAT Arterial Blood Gas pCO2 27 mmHg (35-46); iSTAT Arterial Blood Gas pO2 108 mmHg (80-95); iSTAT Arterial Blood Gas pO2 C 84; iSTAT Carbon Dioxide 22 mmol/L (24-31); iSTAT Hematocrit 30 % (42-52); iSTAT Hemoglobin 10.2 g/dl (14.0-18.0); iSTAT Potassium 3.5 mmol/L (3.3-5.0); iSTAT Site L Radial; iSTAT Sodium 149 mmol/L (135-144)
[2023-09-11 04:43] LABS: Fibrinogen 264 mg/dl (184-400)
[2023-09-11 04:44] LABS: INR 1.4 (0.9-1.1); Prothrombin Time 14.6 Seconds (9.0-12.0)
[2023-09-11 04:46] LABS: Ovalocytes 1+; Polychromasia 2+; Tear Drop Cells 1+
[2023-09-11 04:59] LABS: Albumin Globulin Ratio 0.8 (0.9-2); Albumin Level 2.5 gm/dl (3.4-5.0); BUN Creatinine Ratio 66.7 (10-20); Bilirubin,Total 1.1 mg/dl (0.2-1.0); Calcium 8.3 mg/dl (8.6-10.3); Creatinine Clr Calc Pharmacy 67.4 ml/min; Est GFR (African American) 94.9 ml/min; Est GFR (Non-African American) 81.9 ml/min; Globulin 3.2 gm/dl (2.5-4.0); Magnesium 1.7 mg/dl (1.7-2.4); Phosphorus 3.4 mg/dl (2.5-4.9); Potassium 3.7 mmol/L (3.5-5.1); Total Protein 5.7 gm/dl (6.0-8.3)
[2023-09-11 05:31] LABS: Amphetamines+Metham, Urine Neg (Neg); Barbiturates, Urine Neg (Neg); Benzodiazepine, Urine Neg (Neg); Cocaine, Urine Neg (Neg); Fentanyl, Urine Neg (Neg); MDMA (Ecstacy), Urine Neg (Neg); Marijuana, Urine Neg (Neg); Methadone, Urine Neg (Neg); Opiate, Urine Neg (Neg); Phencyclidine, Urine Neg (Neg)
--- NOTE | 2023-09-11 05:32 | CT Scan Report ---
Exam(s): CT CHEST W/WO Contrast IV Amt: 93 cc's optiray 320 EXAM: CT Chest Without and With Intravenous Contrast CLINICAL HISTORY: Reason for exam: apnea. TECHNIQUE: Axial computed tomography images of the chest without and with intravenous contrast. Automated exposure control was utilized for the study. A dose lowering technique was utilized adhering to the principles of ALARA. CONTRAST: Patient received 93 cc's optiray 320 of IV contrast COMPARISON: No relevant prior studies available. FINDINGS: Lungs: Dependent airspace consolidations, preferentially involving the RIGHT middle lobe and LEFT lower lobe, consistent with aspiration pneumonia. No mass. Pleural space: Small bilateral parapneumonic effusions. Heart: Unremarkable. No cardiomegaly. No significant pericardial effusion. No significant coronary artery calcifications. Bones/joints: Degenerative changes of the spine. Soft tissues: Unremarkable. Vasculature: Atherosclerotic changes of the aorta. No thoracic aortic aneurysm. Lymph nodes: Unremarkable. No enlarged lymph nodes. Tubes, lines and devices: Endotracheal tube terminates in the trachea. Feeding tube terminates in the stomach. IMPRESSION: 1. Dependent airspace consolidations, preferentially involving the RIGHT middle lobe and LEFT lower lobe, consistent with aspiration pneumonia. 2. Small bilateral parapneumonic effusions. 3. Endotracheal tube terminates in the trachea. Electronically signed by: Jacinto Linda MD 09/11/23 05:30 AM
[2023-09-11 05:40] LABS: Adenovirus PCR Not Detected (NotDetected); Bordetella parapertussis PCR Not Detected (NotDetected); Bordetella pertussis PCR Not Detected (NotDetected); Chlamydia pneumoniae PCR Not Detected (NotDetected); Coronavirus 229E PCR Not Detected (NotDetected); Coronavirus CoV-2 (COVID19)PCR Not Detected (NotDetected); Coronavirus HKU1 PCR Not Detected (NotDetected); Coronavirus NL63 PCR Not Detected (NotDetected); Coronavirus OC43PCR Not Detected (NotDetected); Human Metapneumovirus PCR Not Detected (NotDetected); Influenza A PCR Not Detected (NotDetected); Influenza B PCR Not Detected (NotDetected); Mycoplasma pneumoniae PCR Not Detected (NotDetected); Parainfluenza Virus 1 PCR Not Detected (NotDetected); Parainfluenza Virus 2 PCR Not Detected (NotDetected); Parainfluenza Virus 3 PCR Not Detected (NotDetected); Parainfluenza Virus 4 PCR Not Detected (NotDetected); Respiratory Syncytial VirusPCR Not Detected (NotDetected); Rhinovirus/Enterovirus PCR Not Detected (NotDetected)
[2023-09-11] MEDS: metroNIDAZOLE 500 MG/100 ML BAG IV STA (06:12)
[2023-09-11] MEDS: SODIUM CHLORIDE 0.45 % 1,000 ML IV SCH (06:12)
[2023-09-11] MEDS: MAGNESIUM SULFATE / D5W 1 GM/100 ML BAG IV SCH (06:27)
[2023-09-11] MEDS ORDERED: LEVOTHYROXINE SODIUM 50 MCG TABLET PO SCH (06:30)
--- NOTE | 2023-09-11 07:11 | Ultrasound Report ---
ULTRASOUND RIGHT UPPER QUADRANT ABDOMEN CLINICAL HISTORY: Elevated bilirubin levels. COMPARISON STUDY: Abdominal CT dated 07/25/2021 TECHNIQUE: Real-time, grayscale, and color flow sonography of the right upper quadrant of the abdomen was performed. Images are reviewed in the transverse and longitudinal planes. FINDINGS: Liver: The liver is cirrhotic in morphology and heterogeneous in echotexture. There is nodularity of the hepatic surface contour. There is no intrahepatic biliary ductal dilatation. The main portal vein is patent. Gallbladder: The gallbladder is mildly distended and contains biliary sludge. There is nonspecific ga llbladder wall thickening which measures up to 3 mm. There is pericholecystic fluid/ascites. A sonogr aphic Valenzuela's sign could not be assessed. The common bile duct measures up to 0.3 cm in diameter. Pancreas: Visualized portions of the pancreatic head are normal in appearance. The majority of pancre as is obscured by overlying bowel gas. Right kidney: Survey images of the right kidney demonstrate normal size and echotexture. There is no hydronephrosis. There is a 1.6 cm shadowing calculus in the renal pelvis. A 3.2 cm cyst is seen in th e upper pole. Ascites: There is a small volume of perihepatic ascites. IMPRESSION: 1. The liver is cirrhotic in morphology and heterogeneous in echotexture. 2. Small volume abdominal ascites. 3. The gallbladder is mildly distended and contains biliary sludge. Gallbladder wall thickening is no nspecific comment likely related to adjacent hepatocellular disease and ascites. The sonographic Murp hy's sign could not be assessed. Findings are not highly suspicious for acute cholecystitis but this is difficult to evaluate. If there is strong clinical concern for acute cholecystitis a nuclear hepat obiliary scan should be considered. 4. Right-sided nephrolithiasis. ACT 112: Negative or not required by law. Electronically signed by: Gee Dawson M.D. 09/11/2023 7:09 AM
--- NOTE | 2023-09-11 07:14 | Hospitalist Progress Note ---
Date of Service September 11, 2023 Assessment & Plan (1) Sepsis: Plan: Sepsis: with metabolic encephalopathy intubated requiring ICU care on pressors, concern for gram negative and or aspiration pneumonia as source leukopenic, hypothermic, hypotensive. CXR extremely poor quality. CT Chest with bilateral pneumonia BioFire negative, ua no significant change, mrsa screen negative blood cultures collected & pending started on cefepime and empiric vanc( may de escalate with negative mrsa screen stress dose steroids vasopressive support with levophed sedation with fentanyl/propofol while intubated Respiratory failure: s/p intubation Continue mechanical ventilation and sedation . (2) CAD (coronary artery disease): Plan: history of CABG, afib elevated troponin on presentation do not suspect ACS, elevation secondary to demand ischemia dual chamber pacemaker typically on Aspirin, metoprolol and simvastatin (3) Adrenal insufficiency: Plan: random cortisol was 9, stress steroids given (4) CKD (chronic kidney disease), stage III: Plan: Cr stable for now expect changes with poor perfusion Plan Baseline Severe dementia: Code status: full DVT ppx: INR 1.3. Holding ASA Admission and Anticipated Discharge Date Admission Date: September 11, 2023 Subjective Sedated and ventilated Escalated need for pressors Updated at bedside [place] is guarded at best Physical Exam Physical Exam: Course bilateral breath sounds difficult to assess pneumonia on ventilator abdomen is soft and bowel sounds are present Extremities are without edema Results & Data Results & Data Vital Signs (Past 12 Hours) Vital Signs Temp Pulse Pulse Resp BP BP Pulse Ox 09/11/23 06:12 92.1 F L 60 14 93/63 L 97 09/11/23 05:06 99/68 L 09/11/23 05:06 90.7 F L 60 14 97 09/11/23 04:48 100/73 09/11/23 04:47 95.4 F L 09/11/23 04:45 09/11/23 04:39 09/11/23 04:34 60 14 97 09/11/23 04:33 90.3 F L 60 14 97 09/11/23 04:21 90.3 F L 60 14 97 09/11/23 03:47 09/11/23 03:45 90.5 F L 60 18 99 09/11/23 03:33 90.5 F L 60 16 99 09/11/23 03:25 90.7 F L 60 18 106/73 97 09/11/23 02:40 09/11/23 02:33 18 100 09/11/23 01:15 90.9 F L 60 15 96 09/11/23 01:15 94/68 L 09/11/23 01:03 90.9 F L 60 18 97 09/11/23 01:00 90/60 L 09/11/23 00:51 90.9 F L 60 15 97 09/11/23 00:48 90.9 F L 60 17 97 09/11/23 00:33 91.0 F L 60 14 96 09/11/23 00:18 91.2 F L 60 15 98 09/10/23 23:45 91.2 F L 60 16 90/67 L 100 09/10/23 23:11 60 16 115/83 100 09/10/23 23:11 60 16 100 09/10/23 22:52 75 09/10/23 22:35 91.1 F L 60 12 88/68 L 100 O2 Del Method O2 Del Method O2 Flow Rate FiO2 09/11/23 06:12 09/11/23 05:06 09/11/23 05:06 09/11/23 04:48 09/11/23 04:47 09/11/23 04:45 30 09/11/23 04:39 30 09/11/23 04:34 30 09/11/23 04:33 09/11/23 04:21 09/11/23 03:47 Mechanical Vent 09/11/23 03:45 09/11/23 03:33 09/11/23 03:25 Room Air 09/11/23 02:40 40 09/11/23 02:33 60 09/11/23 01:15 09/11/23 01:15 09/11/23 01:03 09/11/23 01:00 09/11/23 00:51 09/11/23 00:48 09/11/23 00:33 09/11/23 00:18 09/10/23 23:45 Nasal Cannula 2 09/10/23 23:11 Nasal Cannula 2 09/10/23 23:11 Nasal Cannula 2 09/10/23 22:52 09/10/23 22:35 Nasal Cannula 2 Laboratory Results Reviewed CBC reviewed chemistry Discussed case with critical care physician PG Care Time/CCT Total # of Minutes Spent Total Time Spent with Patient: Total time spent is greater than 50% in coordination of care (as documented) at patient's floor/unit and/or counseling patient: Coding Level of Care Code None Diagnoses Sepsis A41.9 Coronary artery disease involving coronary bypass graft of torres [place]inez heart without angina pectoris I25.810 Associated angina: without angina Coronary Disease-Associated Artery/Lesion type: bypass graft [place] vs. transplanted heart: [place]res [place]inez heart Adrenal insufficiency E27.40 CKD (chronic kidney disease), stage III N18.30 (2) CAD (coronary artery disease) Associated angina: without angina Coronary Disease-Associated Artery/Lesion type: bypass graft [place] vs. transplanted heart: torres martinez heart Qualified Code(s): I25.810 - Atherosclerosis of coronary artery bypass graft(s) without angina pectoris
--- NOTE | 2023-09-11 07:25 | Electrocardiogram Report ---
Test Reason : Blood Pressure : / mmHG Vent. Rate : 063 BPM Atrial Rate : 063 BPM P-R Int : 198 ms QRS Dur : 224 ms QT Int : 558 ms P-R-T Axes : 000 -73 113 degrees QTc Int : 571 ms AV dual-paced rhythm Abnormal ECG When compared with ECG of 09-FEB-2023 12:42, Premature ventricular complexes are no longer Present Confirmed by Dong Bender ([id number]) on 09/11/2023 7:25:19 AM Referred By: Zakia santana [facility] Confirmed By:Temo Bender
--- NOTE | 2023-09-11 08:10 | XRay Report ---
SINGLE VIEW CHEST CLINICAL HISTORY: Sepsis. FINDINGS: 2 AP, portable, upright chest radiographs are compared to study dated 02/10/2023. The examin ation is severely degraded by portable technique and patient rotation. The patient's had largely obs cures the apices. The patient is status post midline sternotomy. A 2-lead cardiac pacemaker is unchan ged in position. The heart is enlarged. The pulmonary vasculature is not congested. There are layerin g pleural effusions. Airspace consolidation is seen at the left lung base. Foci of parenchymal scarri ng are seen in the right upper lung. No pneumothorax is seen. The skeletal structures are osteopenic. Advanced arthritic change is noted in the shoulders. There are chronic/healed right-sided rib fractu res.. IMPRESSION: 1. Cardiomegaly and cardiac pacemaker without radiographic evidence of congestive failure. 2. Left basilar consolidation is typical for pneumonia/aspiration pneumonitis. Clinical correlation w ill be required and radiographic follow-up to resolution is recommend. 3. Layering pleural effusions. ACT 112: Negative or not required by law. Electronically signed by: Gee Dawson M.D. 09/11/2023 8:08 AM
--- NOTE | 2023-09-11 08:12 | XRay Report ---
SINGLE VIEW CHEST CLINICAL HISTORY: Respiratory failure. Intubation. FINDINGS: 2 AP, portable, supine chest radiographs are compared to study dated 09/10/2023. The examinat ion is degraded by portable technique and patient rotation. The patient is status post midline sterno lalito. A 2-lead cardiac pacemaker is unchanged in position. An endotracheal tube has been placed. The tip projects approximately 2 cm above the jayla. The heart is enlarged. The pulmonary vasculature is noncongested. There are layering pleural effusions. Airspace consolidation is seen at the left lung base. There are also airspace opacities at the right apex. No pneumothorax is seen. The skeletal stru ctures are osteopenic. Advanced arthritic change is noted in the shoulders. There are chronic/healed right-sided rib fractures. IMPRESSION: 1. An endotracheal tube has been placed as above. 2. Cardiomegaly and cardiac pacemaker without radiographic evidence of congestive failure. 3. Left basilar consolidation is typical for pneumonia/aspiration pneumonitis. There are also airspac e opacities in the right upper lung. Radiographic follow-up to resolution is recommend. 4. Layering pleural effusions. ACT 112: Negative or not required by law. Electronically signed by: Gee Dawson M.D. 09/11/2023 8:11 AM
--- NOTE | 2023-09-11 08:14 | XRay Report ---
SINGLE VIEW CHEST CLINICAL HISTORY: Line and tube placement. FINDINGS: 2 AP, portable, supine chest radiographs are compared to study performed earlier the same d ay 09/11/2023. The examination is severely degraded by portable technique and patient rotation. The pat ient is status post midline sternotomy. A 2-lead cardiac pacemaker is unchanged in position. An endot charis tube is unchanged in position. An enteric tube has been placed. The tip projects below the di aphragm over the proximal stomach. A right internal jugular central venous catheter has been placed. The tip projects over the SVC. The heart is enlarged. The pulmonary vasculature is noncongested. Ther e are layering pleural effusions. Airspace consolidation is seen at the left lung base. There are als o airspace opacities at the right apex. No pneumothorax is seen. The skeletal structures are osteopen ic. Advanced arthritic change is noted in the shoulders. There are chronic/healed right-sided rib fra ctures. IMPRESSION: 1. Line and tube placement as above. No pneumothorax is identified. 2. Cardiomegaly and cardiac pacemaker without radiographic evidence of congestive failure. 3. Left basilar consolidation is typical for pneumonia/aspiration pneumonitis. There are also airspac e opacities in the right upper lung. Radiographic follow-up to resolution is recommend. 4. Layering pleural effusions. ACT 112: Negative or not required by law. Electronically signed by: Gee Dawson M.D. 09/11/2023 8:12 AM
[2023-09-11] MEDS ORDERED: HYDROCORTISONE SOD SUCCINATE 100 MG/2 ML VIAL IV SCH (09:00)
[2023-09-11] MEDS ORDERED: POLYETHYLENE (MIRALAX) 17 GM PACK PO SCH (09:00)
[2023-09-11] MEDS ORDERED: DOCUSATE SODIUM/SENNA 50/8.6MG TAB PO SCH (09:00)
[2023-09-11] MEDS ORDERED: ASPIRIN 81 MG CHEW PO SCH (09:00)
[2023-09-11] MEDS ORDERED: ESCITALOPRAM OXALATE 10 MG TAB PO SCH (09:00)
[2023-09-11] MEDS: PANTOprazole 40 MG in SYRINGE 0 ML IV SCH (09:33)
--- NOTE | 2023-09-11 09:37 | Communication Note ---
Date of Service: September 11, 2023 Neuro - Encephalopathy, end stage dementia, Sedation for mechanical ventilation - Patient encephalopathy multifactorial at this time to include base line dem entia worsened by metabolic/septic encephalopathy - Head CT reviewed - Ammonia within normal limits - Sedation goal OLVIN -2- Fentanyl and Propofol if needed -Overall poor prognosis as current treatment will not improve baseline dementia Cardiac - Shock, sepsis, CAD, permanent pacemaker - Shock multifactorial, hypovolemia and sepsis -Hypovolemia improved after crystalloid infusion - Random cortisol-9: stress dose steroids - 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, DDDR currently AV paced with appropriate fire and capture at rate of 60: Appears 100% dependent - CAD with 4v CABG 2001- hold asa currently with elevated INR and bleeding - ECHO FEB 2023- EF 50-55% without RWMA mild MR, TAPSE >1.5 (nml) Respiratory - Respiratory failure requiring emergent intubation, Aspiration pneumonitis versus pneumonia - Patient with respiratory failure requiring emergent intubation secondary to inability to protect airway and ineffective ventilation pattern - Noted pill fragments and bilious secretions in hypopharynx - CT chest reviewed -Suction sputum ordered -BioFire panel negative GI - Elevated INR - Elevated INR with normal LFTs- on no blood thinners other than ASA - bili elevated to 1.3 was up in FEB- -Reviewed ultrasound, could consider nuclear medicine scan -Question appropriateness for surgery if this is indeed a biliary source of sepsis -Routine general surgery consult RENAL/LYTES - CKD III - BUN elevated SNIPPER at baseline- likely pre-renal at this time - mild hypernatremia on labs -Plasma-Lyte at 80 MLS per hour - BPH - de luna placed continue while requiring vasopressor support and intubated and sedated ENDO - Hypothyroidism, adrenal insufficiency - Continue Synthroid-thyroid studies reviewed - Relative insufficiency in light of acute illness- will start hydrocortisone 100mg now and 50mg q6h HEME - Thrombocytopenia - - Platelet count 110s - Noted easy bleeding with suctioning of airway and with hematoma post CVL placement and hematomas at previous IV stick sites - INR 1.3 - Type and screen transfuse as indicated Pancytopenia -CBC every 8 hours x 2 -Suspect underlying sepsis compounded by anemia of chronic disease, check reticulocyte count ID - Septic shock - SIRS with likely aspiration event, and vasopressor requirement. - WBC <5, hypothermia, hypotension, End organ dysfunction of liver (elevated INR), brain - Blood cultures pending. Sputum culture ordered UA negative - Continue Vancomycin and Cefepime- Flagyl for possible GI involvment LINES/IV ACCESS - CVL, ETT, OGT, Katie, De Luna Continue use of these lines DVT PROPHYLAXIS - SCDS-Lovenox 30 mg, BMI 20 DISPO: ICU I have personally spent 45 minutes of critical care time in the direct management of this patient. This is a life/limb threatening event. This includes time spent evaluating patient, direct bedside care, chart review, placing orders, interpretation of diagnostic studies, discussion with consultants, patient, and/or family members regarding treatment decisions, as well as other required patient management activities. This time is exclusive of all separately billable procedures, and teaching time and separate from and in addition to any other critical care service time. Discussed with general surgery, not surgical candidate nor drain candidate at this time. Appreciate and concur with input. Had extensive discussion with . Want to give him very chance possible for return to baseline function. Discussed extremely unlikely to return to baseline given severity of illness. Also discussed likelihood of surviving cardiac arrest (extremely unlikely) and if patient was successfully resuscitated, high probably of extreme morbidity from resuscitative trauma of CPR. desires patient to remain full code until she can discuss with her daughters who should be arriving this afternoon. I believe the patient is entering an end-stage terminal condition without meaningful chance of recovery to state as described. Coding Level of Care Code 72131 CRITICAL CARE EA ADD 30M Additional Critical Care Time Additional 30min Critical Care Time: Yes - 52540 x 2 (60 addl min) Additional Codes Critical Care Time - Additional 30min Critical Care Time: Yes - 19533 x 2 (60 addl min) ([id number])
[2023-09-11] MEDS ORDERED: HYDROCORTISONE SOD 50 MG in SYRINGE 0 ML IV SCH (10:00)
[2023-09-11] MEDS: PLASMA-LYTE A 1,000 ML IV SCH (10:11)
--- NOTE | 2023-09-11 11:37 | Surgery Consultation ---
Date of Consultation September 11, 2023 Assessment & Plan (1) Sepsis: History of Present Illness Reason for Consultation: sepsis, ? biliary source Requesting Physician: David Castillo MD Attending Physician: Socrates Morales MD History of Present Illness 88 yr old man, resident of [place], with advanced dementia, pacemaker, bed to wheelchair with Tayler lift existence (from prior cardiology note) who is now admitted with sepsis, bilateral aspiration pneumonia/ pneumonitis and possible acute cholecystitis. Was noted to by hypotensive and hypothermic - brought to ER. Sometimes does not eat well. No noted vomiting. Pt is intubated, sedated and on levophed. at bedside. Currently full code. Only prior abdominal operation was an inguinal hernia repair. Allergies Allergy/AdvReac Type Severity Reaction Status Date / Time No Known Allergies Allergy Verified 09/11/23 01:00 Home Medications Medication Instructions Recorded Confirmed Type Saccharomyces boulardii 250 mg 250 mg PO QAM 02/09/23 09/11/23 History capsule (Florastor) acetaminophen 325 mg tablet 650 mg PO Q4 PRN Fever Or Pain 02/09/23 09/11/23 History (Tylenol) aspirin 81 mg chewable tablet 81 mg PO QAM 02/09/23 09/11/23 History cholecalciferol (vitamin D3) 25 50 mcg PO DAILY 02/09/23 09/11/23 History mcg (1,000 unit) tablet (Vitamin D3) cyanocobalamin (vitamin B-12) 500 500 mcg PO DAILY 02/09/23 09/11/23 History mcg tablet (Vitamin B-12) docusate sodium 100 mg tablet 100 mg PO Q24H PRN 02/09/23 09/11/23 History Constipation-GIVE ON DAY 2 IN NO BM doxazosin 1 mg tablet 1 mg PO HS 02/09/23 09/11/23 History escitalopram oxalate 10 mg tablet 15 mg PO QAM 02/09/23 09/11/23 History levothyroxine 50 mcg tablet 50 mcg PO QAM 02/09/23 09/11/23 History metoprolol tartrate 50 mg tablet 50 mg PO BID 02/09/23 09/11/23 History multivitamin 1 tab PO DAILY 02/09/23 09/11/23 History nitroglycerin 0.4 mg sublingual 0.4 mg sublingual DIRECTED PRN 02/09/23 09/11/23 History tablet Chest Pain polyethylene glycol 3350 17 gram 17 g PO .Q3DAYS 02/09/23 09/11/23 History oral powder packet (Miralax) sennosides 8.6 mg-docusate sodium 1 tab-cap PO AMHS 02/09/23 09/11/23 History 50 mg tablet (Senna-S) simvastatin 20 mg tablet 20 mg PO QPM 02/09/23 09/11/23 History risperidone 1 mg/mL oral solution 0 mg PO HS 09/11/23 09/11/23 History sodium chloride 0.65 % nasal spray 2 spray NA Q2H PRN DRY 09/11/23 09/11/23 History aerosol (Saline Mist) NOSE/EPISTAXIS Patient History Medical History Acute hypotension Short-term memory loss Kidney stone 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 Sinus bradycardia Encounter for pre-operative examination Raynauds syndrome MILD (EFFECTING FINGERS) Hypertension Hyperlipidemia Cellulitis of left hand Surgical History History of tonsillectomy History of inguinal hernia repair Hx of hernia repair repair of inguinal hernia History of cataract surgery RT/ LT History of colonoscopy Blocked tear duct repair of of tear duct History of cardiac cath 02/2002 and then needed cabg x 4 Family History Sister Family history of diabetes mellitus Hypertension Family/Other Family history of diabetes mellitus Father Acute myocardial infarction Denies family history of Ovarian cancer Prostate cancer Myocardial infarction Breast cancer Colorectal cancer Social History Smoking Status: Unknown if ever smoked Second Hand Exposure: No; Do You Dip or Chew Tobacco: No (pt intubated); Tobacco Cessation Education Requested by Patient: No Hx Alcohol Use: No Hx Substance Use: No Preferred Language: Danish Communication Ability: Impaired Communication Ability Comment: pt intubated Visual Impairment: Limited Hearing Ability: Normal Hand Glove Cleaner Required: No Beliefs That Will Affect Care: None marital status: Current Living Situation: Longterm Current Living Situation Comment: lives at [facility] current occupational status: retired How many Children do You have: 2 Other Information That Helps Us Care for You: No Feels Safe at Home: Yes Safety Concerns: Feels Safe At This Time Childhood Exposure to Second-Hand Smoke: No caffeine: Yes (coffee and sometimes tea ) Dental Care, Regularly: Yes Physical Activity Frequency: Daily Physical Activity Frequency Comment: walks 40 mins a day Seatbelt Use: always Sunscreen Use: Yes Assistive Devices: Mechanical Lift and Wheelchair Review of Systems Review of Systems: Unobtainable due to endotracheal tube Physical Exam Gastrointestinal (Abdomen): Inspection/Auscultation: abdomen normal to inspection and normal bowel sounds; abdomen not distended Percussion/Palpation: abdomen soft; no guarding on propofol drip so unable to assess tenderness but bowel sounds are present, no apparent distention Results & Data Vital Signs (Past 12 Hours) Vital Signs Temp Pulse Pulse Resp BP BP Pulse Ox 09/11/23 07:37 60 15 96 09/11/23 06:12 33.4 C L 60 14 93/63 L 97 09/11/23 05:06 99/68 L 09/11/23 05:06 32.6 C L 60 14 97 09/11/23 04:48 100/73 09/11/23 04:47 35.2 C L 09/11/23 04:45 09/11/23 04:39 09/11/23 04:34 60 14 97 09/11/23 04:33 32.4 C L 60 14 97 09/11/23 04:21 32.4 C L 60 14 97 09/11/23 03:47 09/11/23 03:45 32.5 C L 60 18 99 09/11/23 03:33 32.5 C L 60 16 99 09/11/23 03:25 32.6 C L 60 18 106/73 97 09/11/23 02:40 09/11/23 02:33 18 100 09/11/23 01:15 32.7 C L 60 15 96 09/11/23 01:15 94/68 L 09/11/23 01:03 32.7 C L 60 18 97 09/11/23 01:00 90/60 L 09/11/23 00:51 32.7 C L 60 15 97 09/11/23 00:48 32.7 C L 60 17 97 09/11/23 00:33 32.8 C L 60 14 96 09/11/23 00:18 32.9 C L 60 15 98 09/10/23 23:45 32.9 C L 60 16 90/67 L 100 O2 Del Method O2 Del Method O2 Flow Rate FiO2 09/11/23 07:37 30 09/11/23 06:12 09/11/23 05:06 09/11/23 05:06 09/11/23 04:48 09/11/23 04:47 09/11/23 04:45 30 09/11/23 04:39 30 09/11/23 04:34 30 09/11/23 04:33 09/11/23 04:21 09/11/23 03:47 Mechanical Vent 09/11/23 03:45 09/11/23 03:33 09/11/23 03:25 Room Air 09/11/23 02:40 40 09/11/23 02:33 60 09/11/23 01:15 09/11/23 01:15 09/11/23 01:03 09/11/23 01:00 09/11/23 00:51 09/11/23 00:48 09/11/23 00:33 09/11/23 00:18 09/10/23 23:45 Nasal Cannula 2 Laboratory Results 09/11/23 09/11/23 09/11/23 Range/Units 04:40 04:05 03:59 WBC 2.67 L (4.8-10.8) K/ul RBC 3.18 L (4.70-6.10) M/uL Hgb 9.2 L (14.0-18.0) g/dl POC Hgb 10.2 L (14.0-18.0) g/dl Hct 28.5 L (42.0-52.0) % POC Hct 30 L (42-52) % MCV 89.6 (80.0-100.0) fL MCH 28.9 (25.0-34.0) pg MCHC 32.3 (32.0-36.0) g/dL RDW Std Deviation 67.9 H (36.4-46.3) fL RDW Coeff of Layo 20.8 H (11.5-14.5) % Plt Count 110 L (130-400) K/uL MPV 12.5 H (9.4-12.4) fL Immature Gran % (Auto) 0.4 % Neut % (Auto) 52.8 % Lymph % (Auto) 29.6 % [place] % (Auto) 12.4 % Eos % (Auto) 3.7 % Baso % (Auto) 1.1 % Reticulocyte % (Auto) Pending Neut # (Auto) 1.41 (1.40-6.50) K/uL Lymph # (Auto) 0.79 L (1.20-3.40) K/uL [place] # (Auto) 0.33 (0.11-0.59) K/uL Eos # (Auto) 0.10 (0.00-0.50) K/uL Baso # (Auto) 0.03 (0.00-0.20) K/uL Reticulocyte # Pending Immature Gran # (Auto) 0.01 (0.01-0.20) K/uL Absolute Nucleated RBC 0.02 (0.00-0.12) K/uL Nucleated RBC % (auto) 0.7 % Polychromasia 2+ Anisocytosis Tear Drop Cells 1+ Ovalocytes 1+ PT 14.6 H (9.0-12.0) Seconds INR 1.4 H (0.9-1.1) APTT (21-31) Seconds PTT Ratio Fibrinogen 264 (184-400) mg/dl Sample Site L Radial POC pH 7.50 H (7.35-7.45) POC pCO2 27 L (35-46) mmHg POC pO2 108 H (80-95) mmHg POC HCO3 21 (19-24) adelina/L POC Total CO2 22 L (24-31) mmol/L POC Base Excess -2.0 (-9-1.8) adelina/L ABG pH (Temp Correct) 7.568 H* (7.35-7.45) ABG pCO2 (Temp Corrct 22 L (35-46) mmHg POC ABG pO2 at Pt Temp 84 POC ABG O2 Sat 99.0 H (90-95) % Stan Test Pass VBG pH (7.36-7.41) VBG pCO2 (38-50) mmHg VBG pO2 mmHg VBG HCO3 mmol/L VBG O2 Saturation % VBG Base Excess mEq/L POC Sodium 149 H (135-144) mmol/L Sodium (136-145) mmol/L POC Potassium 3.5 (3.3-5.0) mmol/L Potassium (3.5-5.1) mmol/L Chloride (98-107) mmol/L Carbon Dioxide (21-32) mmol/L Anion Gap (3-11) BUN (6-23) mg/dl Creatinine (0.6-1.4) mg/dl Est Cr Clr Drug Dosing ml/min Est GFR ( Amer) ml/min Est GFR (Non-Af Amer) ml/min BUN/Creatinine Ratio (10-20) Glucose (70-99(Fasting)) mg/dl Lactate (0.4-2.0) mmol/L Calcium (8.6-10.3) mg/dl Phosphorus (2.5-4.9) mg/dl Magnesium (1.7-2.4) mg/dl Total Bilirubin (0.2-1.0) mg/dl Direct Bilirubin (0-0.2) mg/dl AST (13-39) U/L ALT (7-52) U/L Alkaline Phosphatase (34-104) U/L Ammonia (18-72) umol/L Troponin I High Sens (0-20) pg/ml Total Protein (6.0-8.3) gm/dl Albumin (3.4-5.0) gm/dl Globulin (2.5-4.0) gm/dl Albumin/Globulin Ratio (0.9-2) Procalcitonin (0-0.5) ng/ml TSH (0.300-4.500) uIu/ml Free T4 (0.61-1.60) ng/dl Random Cortisol mcg/dl Urine Color Urine Appearance (Clear) Urine pH (4.5-7.5) Ur Specific Pillow (1.000-1.030) Urine Protein (Negative) Urine Glucose (UA) (Negative) Urine Ketones (Negative) Urine Blood (Negative) Urine Nitrite (Negative) Urine Bilirubin (Negative) Urine Urobilinogen (Negative) Ur Leukocyte Esterase (Negative) Urine WBC (Auto) (0-5) /hpf Urine RBC (Auto) (0-2) /hpf U Hyaline Cast (Auto) (0-2) /lpf U Epithel Cells (Auto) (0-2) /hpf Urine Bacteria (Auto) (None Seen) Nasal Screen MRSA (PCR) (Negative) Urine Opiates Screen (Neg) Ur Methadone, Qual (Neg) Urine Fentanyl Screen (Neg) Urine Barbiturates (Neg) Ur Phencyclidine (PCP) (Neg) U Amphetamin/Meth Scrn (Neg) MDMA (Ecstasy) Screen (Neg) U Benzodiazepines Scrn (Neg) Ur Cocaine Metabolite (Neg) U Marijuana (THC) Screen (Neg) Adenovirus (PCR) Not Detected (NotDetected) B. pertussis DNA (PCR) Not Detected (NotDetected) B.parapertussis DNA PCR Not Detected (NotDetected) C. pneumoniae DNA (PCR) Not Detected (NotDetected) Coronavirus OC43 (PCR) Not Detected (NotDetected) Coronavirus HKU1 (PCR) Not Detected (NotDetected) Coronavirus 229E (PCR) Not Detected (NotDetected) SARS-CoV-2 (PCR) Not Detected (Negative) Coronavirus NL63 (PCR) Not Detected (NotDetected) Human Metapneumovir PCR Not Detected (NotDetected) Influenza Type A (PCR) Not Detected (Neg) Influenza Type B (PCR) Not Detected (Neg) M. pneumoniae (PCR) Not Detected (NotDetected) Parainfluenza 1 (PCR) Not Detected (NotDetected) Parainfluenza 2 (PCR) Not Detected (NotDetected) Parainfluenza 3 (PCR) Not Detected (NotDetected) Parainfluenza 4 (PCR) Not Detected (NotDetected) RSV (RT-PCR) (Neg) RSV (PCR) Not Detected (NotDetected) Entero/Rhino (PCR) Not Detected (NotDetected) Blood Type A Positive Antibody Screen NEGATIVE 09/11/23 09/11/23 09/11/23 Range/Units 03:41 03:40 01:24 WBC (4.8-10.8) K/ul RBC (4.70-6.10) M/uL Hgb (14.0-18.0) g/dl POC Hgb (14.0-18.0) g/dl Hct (42.0-52.0) % POC Hct (42-52) % MCV (80.0-100.0) fL MCH (25.0-34.0) pg MCHC (32.0-36.0) g/dL RDW Std Deviation (36.4-46.3) fL RDW Coeff of Layo (11.5-14.5) % Plt Count (130-400) K/uL MPV (9.4-12.4) fL Immature Gran % (Auto) % Neut % (Auto) % Lymph % (Auto) % [place] % (Auto) % Eos % (Auto) % Baso % (Auto) % Reticulocyte % (Auto) Neut # (Auto) (1.40-6.50) K/uL Lymph # (Auto) (1.20-3.40) K/uL [place] # (Auto) (0.11-0.59) K/uL Eos # (Auto) (0.00-0.50) K/uL Baso # (Auto) (0.00-0.20) K/uL Reticulocyte # Immature Gran # (Auto) (0.01-0.20) K/uL Absolute Nucleated RBC (0.00-0.12) K/uL Nucleated RBC % (auto) % Polychromasia Anisocytosis Tear Drop Cells Ovalocytes PT (9.0-12.0) Seconds INR (0.9-1.1) APTT (21-31) Seconds PTT Ratio Fibrinogen (184-400) mg/dl Sample Site POC pH (7.35-7.45) POC pCO2 (35-46) mmHg POC pO2 (80-95) mmHg POC HCO3 (19-24) adelina/L POC Total CO2 (24-31) mmol/L POC Base Excess (-9-1.8) adelina/L ABG pH (Temp Correct) (7.35-7.45) ABG pCO2 (Temp Corrct (35-46) mmHg POC ABG pO2 at Pt Temp POC ABG O2 Sat (90-95) % Stan Test VBG pH (7.36-7.41) VBG pCO2 (38-50) mmHg VBG pO2 mmHg VBG HCO3 mmol/L VBG O2 Saturation % VBG Base Excess mEq/L POC Sodium (135-144) mmol/L Sodium 146 H (136-145) mmol/L POC Potassium (3.3-5.0) mmol/L Potassium 3.7 (3.5-5.1) mmol/L Chloride 116 H (98-107) mmol/L Carbon Dioxide 23 (21-32) mmol/L Anion Gap 7 (3-11) BUN 50 H (6-23) mg/dl Creatinine 0.75 (0.6-1.4) mg/dl Est Cr Clr Drug Dosing 67.4 ml/min Est GFR ( Amer) 94.9 ml/min Est GFR (Non-Af Amer) 81.9 ml/min BUN/Creatinine Ratio 66.7 H (10-20) Glucose 117 H (70-99(Fasting)) mg/dl Lactate (0.4-2.0) mmol/L Calcium 8.3 L (8.6-10.3) mg/dl Phosphorus 3.4 (2.5-4.9) mg/dl Magnesium 1.7 (1.7-2.4) mg/dl Total Bilirubin 1.1 H (0.2-1.0) mg/dl Direct Bilirubin (0-0.2) mg/dl AST 22 (13-39) U/L ALT 15 (7-52) U/L Alkaline Phosphatase 93 (34-104) U/L Ammonia 24.0 (18-72) umol/L Troponin I High Sens (0-20) pg/ml Total Protein 5.7 L (6.0-8.3) gm/dl Albumin 2.5 L (3.4-5.0) gm/dl Globulin 3.2 (2.5-4.0) gm/dl Albumin/Globulin Ratio 0.8 L (0.9-2) Procalcitonin (0-0.5) ng/ml TSH (0.300-4.500) uIu/ml Free T4 (0.61-1.60) ng/dl Random Cortisol mcg/dl Urine Color Urine Appearance (Clear) Urine pH (4.5-7.5) Ur Specific Pillow (1.000-1.030) Urine Protein (Negative) Urine Glucose (UA) (Negative) Urine Ketones (Negative) Urine Blood (Negative) Urine Nitrite (Negative) Urine Bilirubin (Negative) Urine Urobilinogen (Negative) Ur Leukocyte Esterase (Negative) Urine WBC (Auto) (0-5) /hpf Urine RBC (Auto) (0-2) /hpf U Hyaline Cast (Auto) (0-2) /lpf U Epithel Cells (Auto) (0-2) /hpf Urine Bacteria (Auto) (None Seen) Nasal Screen MRSA (PCR) Negative (Negative) Urine Opiates Screen (Neg) Ur Methadone, Qual (Neg) Urine Fentanyl Screen (Neg) Urine Barbiturates (Neg) Ur Phencyclidine (PCP) (Neg) U Amphetamin/Meth Scrn (Neg) MDMA (Ecstasy) Screen (Neg) U Benzodiazepines Scrn (Neg) Ur Cocaine Metabolite (Neg) U Marijuana (THC) Screen (Neg) Adenovirus (PCR) (NotDetected) B. pertussis DNA (PCR) (NotDetected) B.parapertussis DNA PCR (NotDetected) C. pneumoniae DNA (PCR) (NotDetected) Coronavirus OC43 (PCR) (NotDetected) Coronavirus HKU1 (PCR) (NotDetected) Coronavirus 229E (PCR) (NotDetected) SARS-CoV-2 (PCR) (Negative) Coronavirus NL63 (PCR) (NotDetected) Human Metapneumovir PCR (NotDetected) Influenza Type A (PCR) (Neg) Influenza Type B (PCR) (Neg) M. pneumoniae (PCR) (NotDetected) Parainfluenza 1 (PCR) (NotDetected) Parainfluenza 2 (PCR) (NotDetected) Parainfluenza 3 (PCR) (NotDetected) Parainfluenza 4 (PCR) (NotDetected) RSV (RT-PCR) (Neg) RSV (PCR) (NotDetected) Entero/Rhino (PCR) (NotDetected) Blood Type Antibody Screen 09/11/23 09/10/23 09/10/23 Range/Units 01:12 23:40 23:15 WBC (4.8-10.8) K/ul RBC (4.70-6.10) M/uL Hgb (14.0-18.0) g/dl POC Hgb (14.0-18.0) g/dl Hct (42.0-52.0) % POC Hct (42-52) % MCV (80.0-100.0) fL MCH (25.0-34.0) pg MCHC (32.0-36.0) g/dL RDW Std Deviation (36.4-46.3) fL RDW Coeff of Layo (11.5-14.5) % Plt Count (130-400) K/uL MPV (9.4-12.4) fL Immature Gran % (Auto) % Neut % (Auto) % Lymph % (Auto) % [place] % (Auto) % Eos % (Auto) % Baso % (Auto) % Reticulocyte % (Auto) Neut # (Auto) (1.40-6.50) K/uL Lymph # (Auto) (1.20-3.40) K/uL [place] # (Auto) (0.11-0.59) K/uL Eos # (Auto) (0.00-0.50) K/uL Baso # (Auto) (0.00-0.20) K/uL Reticulocyte # Immature Gran # (Auto) (0.01-0.20) K/uL Absolute Nucleated RBC (0.00-0.12) K/uL Nucleated RBC % (auto) % Polychromasia Anisocytosis Tear Drop Cells Ovalocytes PT (9.0-12.0) Seconds INR (0.9-1.1) APTT (21-31) Seconds PTT Ratio Fibrinogen (184-400) mg/dl Sample Site POC pH (7.35-7.45) POC pCO2 (35-46) mmHg POC pO2 (80-95) mmHg POC HCO3 (19-24) adelina/L POC Total CO2 (24-31) mmol/L POC Base Excess (-9-1.8) adelina/L ABG pH (Temp Correct) (7.35-7.45) ABG pCO2 (Temp Corrct (35-46) mmHg POC ABG pO2 at Pt Temp POC ABG O2 Sat (90-95) % Stan Test VBG pH 7.41 (7.36-7.41) VBG pCO2 43 (38-50) mmHg VBG pO2 93 mmHg VBG HCO3 27 mmol/L VBG O2 Saturation 97.5 % VBG Base Excess 2.2 mEq/L POC Sodium (135-144) mmol/L Sodium (136-145) mmol/L POC Potassium (3.3-5.0) mmol/L Potassium (3.5-5.1) mmol/L Chloride (98-107) mmol/L Carbon Dioxide (21-32) mmol/L Anion Gap (3-11) BUN (6-23) mg/dl Creatinine (0.6-1.4) mg/dl Est Cr Clr Drug Dosing ml/min Est GFR ( Amer) ml/min Est GFR (Non-Af Amer) ml/min BUN/Creatinine Ratio (10-20) Glucose (70-99(Fasting)) mg/dl Lactate (0.4-2.0) mmol/L Calcium (8.6-10.3) mg/dl Phosphorus (2.5-4.9) mg/dl Magnesium (1.7-2.4) mg/dl Total Bilirubin (0.2-1.0) mg/dl Direct Bilirubin (0-0.2) mg/dl AST (13-39) U/L ALT (7-52) U/L Alkaline Phosphatase (34-104) U/L Ammonia (18-72) umol/L Troponin I High Sens 17.7 D (0-20) pg/ml Total Protein (6.0-8.3) gm/dl Albumin (3.4-5.0) gm/dl Globulin (2.5-4.0) gm/dl Albumin/Globulin Ratio (0.9-2) Procalcitonin (0-0.5) ng/ml TSH 8.410 H (0.300-4.500) uIu/ml Free T4 1.19 (0.61-1.60) ng/dl Random Cortisol 9.87 mcg/dl Urine Color Dark Yellow Urine Appearance Clear (Clear) Urine pH 5.0 (4.5-7.5) Ur Specific Pillow 1.025 (1.000-1.030) Urine Protein Trace H (Negative) Urine Glucose (UA) Negative (Negative) Urine Ketones Negative (Negative) Urine Blood Negative (Negative) Urine Nitrite Negative (Negative) Urine Bilirubin Negative (Negative) Urine Urobilinogen Negative (Negative) Ur Leukocyte Esterase Negative (Negative) Urine WBC (Auto) 0-5 (0-5) /hpf Urine RBC (Auto) 0-2 (0-2) /hpf U Hyaline Cast (Auto) 0-2 (0-2) /lpf U Epithel Cells (Auto) 0-2 (0-2) /hpf Urine Bacteria (Auto) None Seen (None Seen) Nasal Screen MRSA (PCR) (Negative) Urine Opiates Screen (Neg) Ur Methadone, Qual (Neg) Urine Fentanyl Screen (Neg) Urine Barbiturates (Neg) Ur Phencyclidine (PCP) (Neg) U Amphetamin/Meth Scrn (Neg) MDMA (Ecstasy) Screen (Neg) U Benzodiazepines Scrn (Neg) Ur Cocaine Metabolite (Neg) U Marijuana (THC) Screen (Neg) Adenovirus (PCR) (NotDetected) B. pertussis DNA (PCR) (NotDetected) B.parapertussis DNA PCR (NotDetected) C. pneumoniae DNA (PCR) (NotDetected) Coronavirus OC43 (PCR) (NotDetected) Coronavirus HKU1 (PCR) (NotDetected) Coronavirus 229E (PCR) (NotDetected) SARS-CoV-2 (PCR) NEGATIVE (Negative) Coronavirus NL63 (PCR) (NotDetected) Human Metapneumovir PCR (NotDetected) Influenza Type A (PCR) Negative (Neg) Influenza Type B (PCR) Negative (Neg) M. pneumoniae (PCR) (NotDetected) Parainfluenza 1 (PCR) (NotDetected) Parainfluenza 2 (PCR) (NotDetected) Parainfluenza 3 (PCR) (NotDetected) Parainfluenza 4 (PCR) (NotDetected) RSV (RT-PCR) Negative (Neg) RSV (PCR) (NotDetected) Entero/Rhino (PCR) (NotDetected) Blood Type Antibody Screen 09/10/23 09/10/23 Range/Units 22:50 22:10 WBC 3.37 L (4.8-10.8) K/ul RBC 3.78 L (4.70-6.10) M/uL Hgb 10.9 L (14.0-18.0) g/dl POC Hgb (14.0-18.0) g/dl Hct 35.3 L (42.0-52.0) % POC Hct (42-52) % MCV 93.4 (80.0-100.0) fL MCH 28.8 (25.0-34.0) pg MCHC 30.9 L (32.0-36.0) g/dL RDW Std Deviation 71.7 H (36.4-46.3) fL RDW Coeff of Layo 21.4 H (11.5-14.5) % Plt Count 112 L (130-400) K/uL MPV 12.3 (9.4-12.4) fL Immature Gran % (Auto) 0.3 % Neut % (Auto) 37.3 % Lymph % (Auto) 46.0 % [place] % (Auto) 11.9 % Eos % (Auto) 3.6 % Baso % (Auto) 0.9 % Reticulocyte % (Auto) Neut # (Auto) 1.26 L (1.40-6.50) K/uL Lymph # (Auto) 1.55 (1.20-3.40) K/uL [place] # (Auto) 0.40 (0.11-0.59) K/uL Eos # (Auto) 0.12 (0.00-0.50) K/uL Baso # (Auto) 0.03 (0.00-0.20) K/uL Reticulocyte # Immature Gran # (Auto) 0.01 (0.01-0.20) K/uL Absolute Nucleated RBC (0.00-0.12) K/uL Nucleated RBC % (auto) % Polychromasia Anisocytosis Present Tear Drop Cells 1+ Ovalocytes 1+ PT 13.4 H (9.0-12.0) Seconds INR 1.3 H (0.9-1.1) APTT 36 H (21-31) Seconds PTT Ratio 1.3 Fibrinogen (184-400) mg/dl Sample Site POC pH (7.35-7.45) POC pCO2 (35-46) mmHg POC pO2 (80-95) mmHg POC HCO3 (19-24) adelina/L POC Total CO2 (24-31) mmol/L POC Base Excess (-9-1.8) adelina/L ABG pH (Temp Correct) (7.35-7.45) ABG pCO2 (Temp Corrct (35-46) mmHg POC ABG pO2 at Pt Temp POC ABG O2 Sat (90-95) % Stan Test VBG pH (7.36-7.41) VBG pCO2 (38-50) mmHg VBG pO2 mmHg VBG HCO3 mmol/L VBG O2 Saturation % VBG Base Excess mEq/L POC Sodium (135-144) mmol/L Sodium 147 H (136-145) mmol/L POC Potassium (3.3-5.0) mmol/L Potassium 3.7 (3.5-5.1) mmol/L Chloride 114 H (98-107) mmol/L Carbon Dioxide 29 (21-32) mmol/L Anion Gap 4 (3-11) BUN 52 H (6-23) mg/dl Creatinine 0.86 (0.6-1.4) mg/dl Est Cr Clr Drug Dosing 58.8 ml/min Est GFR ( Amer) 89.7 ml/min Est GFR (Non-Af Amer) 77.4 ml/min BUN/Creatinine Ratio 60.5 H (10-20) Glucose 84 (70-99(Fasting)) mg/dl Lactate 1.6 (0.4-2.0) mmol/L Calcium 9.3 (8.6-10.3) mg/dl Phosphorus (2.5-4.9) mg/dl Magnesium 1.9 (1.7-2.4) mg/dl Total Bilirubin 1.2 H (0.2-1.0) mg/dl Direct Bilirubin 0.3 H (0-0.2) mg/dl AST 24 (13-39) U/L ALT 17 (7-52) U/L Alkaline Phosphatase 113 H (34-104) U/L Ammonia (18-72) umol/L Troponin I High Sens 22.4 H (0-20) pg/ml Total Protein 6.7 (6.0-8.3) gm/dl Albumin 3.0 L (3.4-5.0) gm/dl Globulin (2.5-4.0) gm/dl Albumin/Globulin Ratio (0.9-2) Procalcitonin 0.06 (0-0.5) ng/ml TSH (0.300-4.500) uIu/ml Free T4 (0.61-1.60) ng/dl Random Cortisol mcg/dl Urine Color Urine Appearance (Clear) Urine pH (4.5-7.5) Ur Specific Pillow (1.000-1.030) Urine Protein (Negative) Urine Glucose (UA) (Negative) Urine Ketones (Negative) Urine Blood (Negative) Urine Nitrite (Negative) Urine Bilirubin (Negative) Urine Urobilinogen (Negative) Ur Leukocyte Esterase (Negative) Urine WBC (Auto) (0-5) /hpf Urine RBC (Auto) (0-2) /hpf U Hyaline Cast (Auto) (0-2) /lpf U Epithel Cells (Auto) (0-2) /hpf Urine Bacteria (Auto) (None Seen) Nasal Screen MRSA (PCR) (Negative) Urine Opiates Screen Neg (Neg) Ur Methadone, Qual Neg (Neg) Urine Fentanyl Screen Neg (Neg) Urine Barbiturates Neg (Neg) Ur Phencyclidine (PCP) Neg (Neg) U Amphetamin/Meth Scrn Neg (Neg) MDMA (Ecstasy) Screen Neg (Neg) U Benzodiazepines Scrn Neg (Neg) Ur Cocaine Metabolite Neg (Neg) U Marijuana (THC) Screen Neg (Neg) Adenovirus (PCR) (NotDetected) B. pertussis DNA (PCR) (NotDetected) B.parapertussis DNA PCR (NotDetected) C. pneumoniae DNA (PCR) (NotDetected) Coronavirus OC43 (PCR) (NotDetected) Coronavirus HKU1 (PCR) (NotDetected) Coronavirus 229E (PCR) (NotDetected) SARS-CoV-2 (PCR) (Negative) Coronavirus NL63 (PCR) (NotDetected) Human Metapneumovir PCR (NotDetected) Influenza Type A (PCR) (Neg) Influenza Type B (PCR) (Neg) M. pneumoniae (PCR) (NotDetected) Parainfluenza 1 (PCR) (NotDetected) Parainfluenza 2 (PCR) (NotDetected) Parainfluenza 3 (PCR) (NotDetected) Parainfluenza 4 (PCR) (NotDetected) RSV (RT-PCR) (Neg) RSV (PCR) (NotDetected) Entero/Rhino (PCR) (NotDetected) Blood Type Antibody Screen Diagnostic Findings ULTRASOUND RIGHT UPPER QUADRANT ABDOMEN 09/11/23 CLINICAL HISTORY: Elevated bilirubin levels. COMPARISON STUDY: Abdominal CT dated 07/25/2021 TECHNIQUE: Real-time, grayscale, and color flow sonography of the right upper quadrant of the abdomen was performed. Images are reviewed in the transverse and longitudinal planes. FINDINGS: Liver: The liver is cirrhotic in morphology and heterogeneous in echotexture. There is nodularity of the hepatic surface contour. There is no intrahepatic biliary ductal dilatation. The main portal vein is patent. Gallbladder: The gallbladder is mildly distended and contains biliary sludge. There is nonspecific gallbladder wall thickening which measures up to 3 mm. There is pericholecystic fluid/ascites. A sonographic Valenzuela's sign could not be assessed. The common bile duct measures up to 0.3 cm in diameter. Pancreas: Visualized portions of the pancreatic head are normal in appearance. The majority of pancreas is obscured by overlying bowel gas. Right kidney: Survey images of the right kidney demonstrate normal size and echotexture. There is no hydronephrosis. There is a 1.6 cm shadowing calculus in the renal pelvis. A 3.2 cm cyst is seen in the upper pole. Ascites: There is a small volume of perihepatic ascites. IMPRESSION: 1. The liver is cirrhotic in morphology and heterogeneous in echotexture. 2. Small volume abdominal ascites. 3. The gallbladder is mildly distended and contains biliary sludge. Gallbladder wall thickening is nonspecific comment likely related to adjacent hepatocellular disease and ascites. The sonographic Valenzuela's sign could not be assessed. Findings are not highly suspicious for acute cholecystitis but this is difficult to evaluate. If there is strong clinical concern for acute cholecystitis a nuclear hepatobiliary scan should be considered. 4. Right-sided nephrolithiasis. ACT 112: Negative or not required by law. Exam(s): CT CHEST W/WO Contrast IV Amt: 93 cc's optiray 320 09/11/23 EXAM: CT Chest Without and With Intravenous Contrast CLINICAL HISTORY: Reason for exam: apnea. TECHNIQUE: Axial computed tomography images of the chest without and with intravenous contrast. Automated exposure control was utilized for the study. A dose lowering technique was utilized adhering to the principles of ALARA. CONTRAST: Patient received 93 cc's optiray 320 of IV contrast COMPARISON: No relevant prior studies available. FINDINGS: Lungs: Dependent airspace consolidations, preferentially involving the RIGHT middle lobe and LEFT lower lobe, consistent with aspiration pneumonia. No mass. Pleural space: Small bilateral parapneumonic effusions. Heart: Unremarkable. No cardiomegaly. No significant pericardial effusion. No significant coronary artery calcifications. Bones/joints: Degenerative changes of the spine. Soft tissues: Unremarkable. Vasculature: Atherosclerotic changes of the aorta. No thoracic aortic aneurysm. Lymph nodes: Unremarkable. No enlarged lymph nodes. Tubes, lines and devices: Endotracheal tube terminates in the trachea. Feeding tube terminates in the stomach. IMPRESSION: 1. Dependent airspace consolidations, preferentially involving the RIGHT middle lobe and LEFT lower lobe, consistent with aspiration pneumonia. 2. Small bilateral parapneumonic effusions. 3. Endotracheal tube terminates in the trachea.
[2023-09-11] MEDS: CEFEPIME 2,000 MG in SYRINGE 0 ML IV SCH (12:15)
[2023-09-11 12:51] LABS: Reticulocyte % 2.04 % (0.50-2.00); Reticulocytes # 0.07 10^6/uL (0.020-0.100)
[2023-09-11] MEDS: VANCOMYCIN HCL 1,000 MG in SODIUM CHLORIDE 0.9% 250 ML IV SCH (15:00)
[2023-09-11] MEDS: metroNIDAZOLE 500 MG/100 ML BAG IV SCH (15:00)
--- NOTE | 2023-09-11 17:37 | Communication Note ---
Date of Service: September 11, 2023 spoke with and daughters at 1730. they expressed a desire for pt not to undergo Chest compressions in the case or cardiac arrest, they wished to contin ue support as we are and permit use of medications otherwise indicated for resusitation
[2023-09-11 18:59] LABS: Basophils # (auto) 0.02 K/uL (0.00-0.20); Basophils % (auto) 0.4 %; Eosinophils # (auto) 0.01 K/uL (0.00-0.50); Eosinophils % (auto) 0.2 %; Hematocrit (blood only) 31.4 % (42.0-52.0); Hemoglobin 10.1 g/dl (14.0-18.0); Immature Granulocytes # (auto) 0.06 K/uL (0.01-0.20); Immature Granulocytes % (auto) 1.3 %; Lymphocytes # (auto) 0.68 K/uL (1.20-3.40); Lymphocytes % (auto) 14.2 %; Mean Corpuscular Hemoglobin 28.9 pg (25.0-34.0); Mean Corpuscular Hgb Conc 32.2 g/dL (32.0-36.0); Mean Platelet Volume 11.8 fL (9.4-12.4); Monocytes # (auto) 0.33 K/uL (0.11-0.59); Monocytes % (auto) 6.9 %; Nucleated RBC # (auto) 0.08 K/uL (0.00-0.12); Nucleated RBC % (auto) 1.7 %; Platelet Count 141 K/uL (130-400); RDW Coefficient of Variation 21.1 % (11.5-14.5); RDW Standard Deviation 67.3 fL (36.4-46.3); Red Blood Count 3.49 M/uL (4.70-6.10)
[2023-09-11 19:17] LABS: Anisocytosis Present; Ovalocytes 1+; Tear Drop Cells 1+
[2023-09-11 21:00] LABS: iSTAT Allen Test Pass; iSTAT Art Bld Gas pCO2 Correct 37 mmHg (35-46); iSTAT Arterial Blood Gas HCO3 20 meg/L (19-24); iSTAT Arterial Blood Gas pCO2 36 mmHg (35-46); iSTAT Arterial Blood Gas pH 7.36 (7.35-7.45); iSTAT Arterial Blood Gas pO2 73 mmHg (80-95); iSTAT Arterial Blood Gas pO2 C 75; iSTAT Carbon Dioxide 21 mmol/L (24-31); iSTAT Hematocrit 33 % (42-52); iSTAT Hemoglobin 11.2 g/dl (14.0-18.0); iSTAT Potassium 4.5 mmol/L (3.3-5.0); iSTAT Site Art Line; iSTAT Sodium 145 mmol/L (135-144)
[2023-09-11] MEDS ORDERED: DOXAZOSIN MESYLATE 1 MG TAB PO SCH (21:00)
[2023-09-11] MEDS: risperiDONE 1 MG/ML SOLUTION PO SCH (21:11)
--- NOTE | 2023-09-11 21:14 | Pharmacy Report ---
Pharmacy PK ABX Note - Date of Service September 11, 2023 - Assessment and Plan Assessment 88 year old M receiving empiric vancomycin + cefepime for treatment of pneumonia (likely aspiration) and possible biliary infection. Respiratory failure requiring emergent intubation. Patient on pressors. Pertinent microbiologic data: Negative MRSA nasal swab BC x 2 - pending sputum (vent) - pending Plan Vancomycin * Loading dose: 1750 mg IV x 1 * Maintenance dose: 1000 mg IV every 12 hours * Regimen is predicted to achieve target AUC/SUNSHINE of 400-600 mg/L.hr * Vanco level to be ordered if empiric therapy is continued Pharmacy will continue to follow and will adjust dose/frequency as necessary. Thank you. Pharmacy has transitioned to AUC monitoring for vancomycin. AUC/SUNSHINE is the preferred PK/PD target and is associated with decreased risk of nephrotoxicity compared to traditional trough targets.
--- NOTE | 2023-09-12 03:29 | Billing Data ---
Date of Service September 11, 2023 Coding Level of Care Code 97055 INT INP/OBS CARE
[2023-09-12 05:29] LABS: Albumin Globulin Ratio 0.7 (0.9-2); Albumin Level 2.5 gm/dl (3.4-5.0); BUN Creatinine Ratio 41.3 (10-20); Calcium 8.1 mg/dl (8.6-10.3); Creatinine Clr Calc Pharmacy 48.6 ml/min; Est GFR (Non-African American) 63.8 ml/min; Globulin 3.4 gm/dl (2.5-4.0); Phosphorus 3.8 mg/dl (2.5-4.9); Potassium 4.3 mmol/L (3.5-5.1); Total Protein 5.9 gm/dl (6.0-8.3)
[2023-09-12 05:34] LABS: iSTAT Allen Test Pass; iSTAT Art Bld Gas pCO2 Correct 36 mmHg (35-46); iSTAT Art Bld Gas pH Corrected 7.384 (7.35-7.45); iSTAT Arterial Blood Gas HCO3 22 meg/L (19-24); iSTAT Arterial Blood Gas pCO2 36 mmHg (35-46); iSTAT Arterial Blood Gas pH 7.39 (7.35-7.45); iSTAT Arterial Blood Gas pO2 68 mmHg (80-95); iSTAT Arterial Blood Gas pO2 C 69; iSTAT Carbon Dioxide 23 mmol/L (24-31); iSTAT Hematocrit 31 % (42-52); iSTAT Hemoglobin 10.5 g/dl (14.0-18.0); iSTAT Potassium 4.2 mmol/L (3.3-5.0); iSTAT Site Art Line; iSTAT Sodium 145 mmol/L (135-144)
[2023-09-12 05:36] LABS: INR 1.4 (0.9-1.1); Prothrombin Time 14.5 Seconds (9.0-12.0)
[2023-09-12 05:40] LABS: Anisocytosis Present; Basophils # (auto) 0.04 K/uL (0.00-0.20); Basophils % (auto) 0.6 %; Eosinophils # (auto) 0.01 K/uL (0.00-0.50); Eosinophils % (auto) 0.1 %; Hematocrit (blood only) 31.6 % (42.0-52.0); Hemoglobin 10.1 g/dl (14.0-18.0); Immature Granulocytes # (auto) 0.06 K/uL (0.01-0.20); Immature Granulocytes % (auto) 0.9 %; Lymphocytes # (auto) 1.76 K/uL (1.20-3.40); Lymphocytes % (auto) 25.5 %; Macrocytosis Present; Mean Corpuscular Hemoglobin 29.3 pg (25.0-34.0); Mean Corpuscular Volume 91.6 fL (80.0-100.0); Mean Platelet Volume 11.7 fL (9.4-12.4); Monocytes # (auto) 0.94 K/uL (0.11-0.59); Monocytes % (auto) 13.6 %; Neutrophils % (auto) 59.3 %; Nucleated RBC % (auto) 1.4 %; Platelet Count 129 K/uL (130-400); Polychromasia 1+; RDW Coefficient of Variation 21.3 % (11.5-14.5); RDW Standard Deviation 69.4 fL (36.4-46.3); Red Blood Count 3.45 M/uL (4.70-6.10); White Blood Count 6.91 K/ul (4.8-10.8)
--- NOTE | 2023-09-12 07:13 | XRay Report ---
XR chest 1V portable CLINICAL HISTORY: eval lung brady, lines and tubes, while intubated COMPARISON STUDY: Chest radiograph and chest CT September 11, 2023. FINDINGS: Tip of endotracheal tube is 2.8 cm above the jayla. Tip of nasogastric tube is within the body of the stomach. Right internal jugular central line remains in place. There is no pneumothorax. There are median sternotomy wires and a left subclavian pacer. Small bilateral pleural effusions and bibasilar opacities have increased. Mild interstitial thickening is also increased. IMPRESSION: 1. Satisfactory positioning of lines and tubes. 2. Increase in small bilateral pleural effusions and associated bibasilar opacities which favor pneum onia or aspiration pneumonitis. 3. Increase in interstitial thickening suggestive of mild pulmonary edema. ACT 112: Negative or not required by law. Electronically signed by: Bay Moctezuma M.D. 09/12/2023 7:10 AM
--- NOTE | 2023-09-12 08:02 | Critical Care Progress Note ---
Date of Service September 12, 2023 Assessment & Plan (1) Adrenal insufficiency: (2) Sepsis: (3) Encephalopathy: (4) Respiratory failure: (5) Elevated troponin I level: (6) Shock circulatory: (7) Severe dementia: (8) Paroxysmal atrial fibrillation: (9) CKD (chronic kidney disease), stage III: Plan Reason Critically Ill: 88 YOM with end stage dementia- encephalopathic with apneic respirations requiring emergent intubation, he remained hypotensive despite crystalloid resuscitation requiring vasopressor infusions. Neuro - Encephalopathy, end stage dementia, Sedation for mechanical ventilation CAM ICU: [facility] - Patient encephalopathy multifactorial at this time to include base line dementia worsened by metabolic/septic encephalopathy - Head CT - 09/11/2023 - TSH high with normal free T4 - Ammonia within normal limits - Sedation goal RASS -1 - Fentanyl and Propofol if needed Cardiac - Shock, sepsis, CAD, PPM - Shock multifactorial at this time to include hypovolemic and likely sepsis from aspiration - Levophed for MAPS >65 - Random cortisol - 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, DDDR currently AV paced with appropriate fire and capture at rate of 60 - CAD with 4v CABG 2001- hold asa currently with elevated INR and bleeding - Troponin negative on arrival - ECHO FEB 2023- EF 50-55% without RWMA mild MR, TAPSE >1.5 (nml) Respiratory - Respiratory failure requiring emergent intubation, Aspiration --Multilobar pneumonia - Patient with respiratory failure requiring emergent intubation secondary to inability to protect airway and ineffective ventilation pattern - Noted pill fragments and bilious secretions in hypopharynx Respiratory bio fire negative for everything GI - Elevated INR - Elevated INR with normal LFTs- on no blood thinners other than ASA - bili elevated to 1.3 RENAL/LYTES - LIAT on CKD III - BUN elevated [employer] at baseline- likely pre-renal at this time - BPH - de luna placed continue while requiring vasopressor support and intubated and sedated ENDO - Hypothyroidism, adrenal insufficiency - Continue Synthroid- TSH pending - Relative insufficiency On hydrocortisone HEME - Thrombocytopenia - - Platelet count 110s - INR 1.3 -Monitor H&H ID - Septic shock -Multilobar pneumonia - WBC <5, hypothermia, hypotension, End organ dysfunction of liver (elevated INR), brain - Blood cultures negative to date UA negative -DC vancomycin, change cefepime and Flagyl to Zosyn - Continue to look for other causes -- Gallbladder sludge with possible cholecystitis Abdominal ultrasound 09/11/2023: Cirrhotic liver with small volume ascites, abdomen is mildly distended with biliary sludge, gallbladder wall thickening Surgery on board, no intervention from their perspective given the comorbidities --Prophylaxis VTE: Heparin GI: Pantoprazole Lines: Right IJ, left radial Diet: Will start tube feeds Plan: In/out: +2.2 L, urine output 675, +7 L since coming to the hospital Change Flagyl and cefepime to Zosyn. DC vancomycin. Patient is 7 L since coming to the hospital positive. Will consider giving Lasix if there is no good urine output. Start the patient on tube feeds today trophic feeds Given the random cortisol was low as well as patient's requiring vasopressors with community-acquired pneumonia. Will give hydrocortisone 200 mg on a daily basis and gradually titrate it off over the next 10 days I have personally spent 42 minutes of critical care time in the direct management of this patient. This is a life/limb threatening event. This includes time spent evaluating patient, direct bedside care, chart review, placing orders, interpretation of diagnostic studies, discussion with consultants, patient, and family members, as well as other required patient management activities. This time is exclusive of all separately billable procedures, and teaching time and separate from and in addition to any other critical care service time. Please note the above document was generated using voice recognition software. It may contain grammatical, syntax or spelling errors. Admission and Anticipated Discharge Date Admission Date: September 11, 2023 Subjective Patient seen and examined at bedside. No acute distress, no adverse events overnight He was on 50 of fentanyl at the time of examination Was breathing with the vent. Has been afebrile Saturating 99% on 45% FiO2 Review of Systems 2 Review of Systems: Unobtainable due to endotracheal tube Physical Exam 2 Physical Exam: Constitutional: No acute distress HEENT: PERRLA, arcus senilis bilaterally Respiratory system: Decreased air entry bilaterally, no wheeze, no rhonchi, positive crackles bilaterally CVS: S1-S2 positive, no murmurs or gallops, distant heart sounds Abdomen: Soft, nontender, nondistended, positive bowel sounds x4 Extremities: +1 pulses bilaterally radialis/ dorsalis pedis, no cyanosis, +2 pitting edema bilateral lower extremity Neuro: RASS -2, breathing with the vent Psych: Unable to assess G/U: Positive De [place] Skin: no rashes, warm and dry Lymphatic: no cervical or axillary lymphadenopathy Results & Data Results & Data Vital Signs (Past 12 Hours) Vital Signs Temp Pulse Resp BP Pulse Ox O2 Del Method FiO2 09/12/23 07:27 60 14 99 45 09/12/23 05:00 60 14 97 30 09/12/23 04:00 30 09/12/23 04:00 60 110/54 L 09/12/23 03:06 37.2 C 60 14 95 Mechanical Vent 30 09/12/23 02:39 37.3 C 60 14 96 Mechanical Vent 30 09/12/23 02:06 103/68 Mechanical Vent 30 09/12/23 02:03 37.3 C 60 14 96 09/12/23 02:00 60 15 96 30 09/12/23 02:00 37.3 C 60 15 96 09/12/23 01:42 37.4 C 60 16 96 Mechanical Vent 30 09/12/23 01:06 106/67 Mechanical Vent 30 09/12/23 01:06 37.5 C 60 14 96 09/12/23 00:09 37.4 C 60 14 96 09/12/23 00:06 105/70 09/12/23 00:00 30 09/12/23 00:00 60 120/56 L 09/12/23 00:00 60 09/11/23 23:57 37.4 C 60 14 96 Mechanical Vent 30 09/11/23 23:26 60 15 97 30 09/11/23 23:06 109/71 09/11/23 23:02 37.4 C 60 14 97 09/11/23 22:06 107/67 09/11/23 22:05 37.4 C 60 14 96 Mechanical Vent 30 09/11/23 22:00 37.5 C 60 14 96 09/11/23 21:09 37.5 C 60 13 96 09/11/23 20:06 37.5 C 60 17 96 09/11/23 20:06 101/64 09/11/23 20:02 37.5 C 60 14 96 09/11/23 20:00 Mechanical Vent 09/11/23 20:00 30 09/11/23 20:00 60 Laboratory Results 09/12/23 04:29 09/12/23 04:29 Coding Level of Care Code 33774 CRITICAL CARE 1ST 30-74M Diagnoses Adrenal insufficiency E27.40 Sepsis A41.9 Encephalopathy G93.40 Respiratory failure J96.01 Chronicity: acute Respiratory failure complication: hypoxia Elevated troponin I level R79.89 Shock circulatory R57.9 Severe dementia F03.C0 Paroxysmal atrial fibrillation I48.0 CKD (chronic kidney disease), stage III N18.30 (4) Respiratory failure Chronicity: acute Respiratory failure complication: hypoxia Qualified Code(s): J96.01 - Acute respiratory failure with hypoxia
[2023-09-12] MEDS: HEPARIN SOD 5,000 UNIT/0.5 ML VIAL SQ SCH (11:02)
[2023-09-12] MEDS: DEXTROSE 50% 50 ML SYRINGE IV ONE ×2 (13:32→13:34)
[2023-09-12] MEDS: HYDROCORTISONE SOD 50 MG in SYRINGE 0 ML IV SCH (14:37)
[2023-09-12] MEDS: PEPTAMEN 1.5 CAL 1,000 ML BAG OG SCH (14:40)
[2023-09-12] MEDS: TUBE FEEDING WATER FLUSH OG SCH (14:42)
[2023-09-12] MEDS: PIPER/TAZO 4.5g in D5W MINI-B 100 ML IV SCH (15:51)
--- NOTE | 2023-09-12 17:57 | Hospitalist Progress Note ---
Date of Service September 12, 2023 Assessment & Plan (1) Sepsis: Plan: Patient leukopenic, hypothermic, hypotensive. Etiology of sepsis unclear. Likely multifactorial with dehydration, poor PO intake, probable infection, adrenal insufficiency, and poor reserves. Lactate < 2. Procal negative. VBG without acid-base disturbance. Ammonia 24. Random cortisol - 9.87. TSH 8.41. Inadequate response to acute stressor. CT Head per my read with diffuse brain atrophy, no obvious bleed. Formal read pending. Infectious source unclear - likely pulmonary. CXR extremely poor quality. CT Chest pending. BioFire, blood cultures, and MRSA nares pending. Started on empiric abx. blood cultures pending CT Chest, CT Head ordered MRSA nares and BioFire pending, Utox ordered started on cefepime and empiric vanc stress dose steroids vasopressive support with levophed sedation with fentanyl/propofol while intubated Patient with clinical deterioration with hypotension and respiratory failure as outlined above - now requiring ICU level care with mechanical ventilation and vasopressive support. Hospitalist team will continue to follow along with patient's care. Patient remains intubated on 09/11. will continue to monitor. (2) Acute hypotension: Plan: Patient on levophed - titration per protocol. Goal MAP > 65. (3) Adrenal insufficiency: Plan: Insufficient cortisol response to stressor. Start hydrocortisone 100 mg now with 50 mg Q6H after. Continue to monitor. (4) Respiratory failure: Plan: s/p intubation in the ED by Dr. Parra. Appropriate placement confirmed. Continue mechanical ventilation. (5) Elevated troponin I level: Plan: Peaked 22.4. Likely demand. (6) Acute dehydration: Plan: Fluid resuscitated with 3 L. Likely contributory, but not main cause of hypotension. (7) Hypothermia: Plan: Continue Sean Hugger. If needed could trial fluid warmer. (8) Hypernatremia: Plan: Mild hypernatremia. Continue to monitor. (9) Severe dementia: Plan: Hold home dementia medications while intubated. (10) Airway clearance impairment: Plan: Unable to protect airway. Intubated as above. Continue with mechanical ventilation (11) Encephalopathy: Plan: See above (12) CAD (coronary artery disease): Plan: s/p CABG x 4. Hold home metoprolol, statin, ASA Plan Code status: full DVT ppx: INR 1.3. Holding ASA FENGI: NPO Dispo: ICU Lines: [place], OGT, A-line, Central line, ETT Admission and Anticipated Discharge Date Admission Date: September 11, 2023 Subjective Patient remains sedated and intubated. Review of Systems Review of Systems: All systems reviewed & are unremarkable except as noted in HPI & below Physical Exam Physical Exam: Course bilateral breath sounds difficult to assess pneumonia on ventilator abdomen is soft and bowel sounds are present Extremities are without edema Results & Data Results & Data Vital Signs (Past 12 Hours) Vital Signs Temp Pulse Resp BP Pulse Ox O2 Del Method FiO2 09/12/23 16:09 36.7 C 09/12/23 16:00 60 09/12/23 16:00 35 09/12/23 14:27 60 19 96 35 09/12/23 11:47 62 14 96 35 09/12/23 09:44 36.5 C 09/12/23 09:06 36.9 C 60 14 97/66 L 98 09/12/23 08:00 35 09/12/23 08:00 Mechanical Vent 35 09/12/23 07:27 60 14 99 45 PG Care Time/CCT Total # of Minutes Spent Total Time Spent with Patient: Total time spent is greater than 50% in coordination of care (as documented) at patient's floor/unit and/or counseling patient: Coding Level of Care Code 54656 SUB INP/OBS CARE 2/35MIN Medical Decision Making High Complexity Diagnoses Sepsis A41.9 Acute hypotension I95.9 Adrenal insufficiency E27.40 Respiratory failure J96.01 Chronicity: acute Respiratory failure complication: hypoxia Elevated troponin I level R79.89 Acute dehydration E86.0 Hypothermia T68.XXXA Encounter type: initial encounter Hypernatremia E87.0 Severe dementia F03.C0 Airway clearance impairment R06.89 Encephalopathy G93.40 Coronary artery disease involving coronary bypass graft of cahto heart without angina pectoris I25.810 Coronary Disease-Associated Artery/Lesion type: bypass graft [place] vs. transplanted heart: cahto heart Associated angina: without angina (4) Respiratory failure Chronicity: acute Respiratory failure complication: hypoxia Qualified Code(s): J96.01 - Acute respiratory failure with hypoxia (7) Hypothermia Encounter type: initial encounter Qualified Code(s): T68.XXXA - Hypothermia, initial encounter (12) CAD (coronary artery disease) Coronary Disease-Associated Artery/Lesion type: bypass graft [place] vs. transplanted heart: cahto heart Associated angina: without angina Qualified Code(s): I25.810 - Atherosclerosis of coronary artery bypass graft(s) without angina pectoris
[2023-09-13 04:46] LABS: Basophils # (auto) 0.02 K/uL (0.00-0.20); Basophils % (auto) 0.2 %; Hematocrit (blood only) 30.2 % (42.0-52.0); Hemoglobin 9.6 g/dl (14.0-18.0); Immature Granulocytes # (auto) 0.11 K/uL (0.01-0.20); Immature Granulocytes % (auto) 1.3 %; Lymphocytes # (auto) 0.75 K/uL (1.20-3.40); Lymphocytes % (auto) 8.6 %; Mean Corpuscular Hgb Conc 31.8 g/dL (32.0-36.0); Mean Corpuscular Volume 91.2 fL (80.0-100.0); Mean Platelet Volume 11.1 fL (9.4-12.4); Monocytes # (auto) 0.87 K/uL (0.11-0.59); Monocytes % (auto) 9.9 %; Neutrophils # (auto) 7.02 K/uL (1.40-6.50); Nucleated RBC # (auto) 0.05 K/uL (0.00-0.12); Nucleated RBC % (auto) 0.6 %; Platelet Count 105 K/uL (130-400); RDW Coefficient of Variation 21.5 % (11.5-14.5); RDW Standard Deviation 70.4 fL (36.4-46.3); Red Blood Count 3.31 M/uL (4.70-6.10); White Blood Count 8.77 K/ul (4.8-10.8)
[2023-09-13 04:58] LABS: iSTAT Art Bld Gas pCO2 Correct 35 mmHg (35-46); iSTAT Art Bld Gas pH Corrected 7.379 (7.35-7.45); iSTAT Arterial Blood Gas HCO3 21 meg/L (19-24); iSTAT Arterial Blood Gas pCO2 34 mmHg (35-46); iSTAT Arterial Blood Gas pH 7.39 (7.35-7.45); iSTAT Arterial Blood Gas pO2 83 mmHg (80-95); iSTAT Arterial Blood Gas pO2 C 89; iSTAT Carbon Dioxide 22 mmol/L (24-31); iSTAT FiO2 35 %; iSTAT Hematocrit 31 % (42-52); iSTAT Hemoglobin 10.5 g/dl (14.0-18.0); iSTAT Potassium 3.9 mmol/L (3.3-5.0); iSTAT Site Art Line; iSTAT Sodium 144 mmol/L (135-144)
[2023-09-13 05:01] LABS: Albumin Globulin Ratio 0.8 (0.9-2); Albumin Level 2.5 gm/dl (3.4-5.0); BUN Creatinine Ratio 34.2 (10-20); Bilirubin,Total 1.4 mg/dl (0.2-1.0); Calcium 8.3 mg/dl (8.6-10.3); Creatinine Clr Calc Pharmacy 49.2 ml/min; Est GFR (African American) 66.2 ml/min; Est GFR (Non-African American) 57.1 ml/min; Globulin 3.3 gm/dl (2.5-4.0); Magnesium 1.9 mg/dl (1.7-2.4); Phosphorus 2.4 mg/dl (2.5-4.9); Potassium 4.1 mmol/L (3.5-5.1); Total Protein 5.8 gm/dl (6.0-8.3)
[2023-09-13 05:07] LABS: INR 1.5 (0.9-1.1); Prothrombin Time 16.1 Seconds (9.0-12.0)
[2023-09-13 05:18] LABS: Anisocytosis Present; Ovalocytes 1+; Polychromasia 1+
[2023-09-13] MEDS ORDERED: SODIUM PHOSPHATE 3 MMOL/1 ML INFUSION IV STA (07:42)
--- NOTE | 2023-09-13 07:44 | Critical Care Progress Note ---
Date of Service September 13, 2023 Assessment & Plan (1) Adrenal insufficiency: (2) Sepsis: (3) Encephalopathy: (4) Respiratory failure: (5) Elevated troponin I level: (6) Shock circulatory: (7) Severe dementia: (8) Paroxysmal atrial fibrillation: (9) CKD (chronic kidney disease), stage III: Plan Reason Critically Ill: 88 YOM with end stage dementia- encephalopathic with apneic respirations requiring emergent intubation, he remained hypotensive despite crystalloid resuscitation requiring vasopressor infusions. Neuro - Encephalopathy, end stage dementia, Sedation for mechanical ventilation CAM ICU: [facility] - Patient encephalopathy multifactorial at this time to include base line dementia worsened by metabolic/septic encephalopathy - Head CT - 09/11/2023 - TSH high with normal free T4 - Ammonia within normal limits - Sedation goal RASS -1 - Fentanyl and Propofol if needed Cardiac - Shock, sepsis, CAD, PPM - Shock multifactorial at this time to include hypovolemic and likely sepsis from aspiration - Levophed for MAPS >65 - Random cortisol - 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, DDDR currently AV paced with appropriate fire and capture at rate of 60 - CAD with 4v CABG 2001- hold asa currently with elevated INR and bleeding - Troponin negative on arrival - ECHO FEB 2023- EF 50-55% without RWMA mild MR, TAPSE >1.5 (nml) Respiratory - Respiratory failure requiring emergent intubation, Aspiration --Multilobar pneumonia - Patient with respiratory failure requiring emergent intubation secondary to inability to protect airway and ineffective ventilation pattern - Noted pill fragments and bilious secretions in hypopharynx Respiratory bio fire negative for everything GI - Elevated INR - Elevated INR with normal LFTs- on no blood thinners other than ASA - bili elevated to 1.3 RENAL/LYTES - LIAT on CKD III - BUN elevated [employer] at baseline- likely pre-renal at this time - BPH - de luna placed continue while requiring vasopressor support and intubated and sedated ENDO - Hypothyroidism, adrenal insufficiency - Continue Synthroid- TSH pending - Relative insufficiency On hydrocortisone HEME - Thrombocytopenia - INR 1.3 -Monitor H&H ID - Septic shock -Multilobar pneumonia - WBC <5, hypothermia, hypotension, End organ dysfunction of liver (elevated INR), brain - Blood cultures negative to date UA negative -DC vancomycin, change cefepime and Flagyl to Zosyn - Continue to look for other causes -- Gallbladder sludge with possible cholecystitis Abdominal ultrasound 09/11/2023: Cirrhotic liver with small volume ascites, abdomen is mildly distended with biliary sludge, gallbladder wall thickening Surgery on board, no intervention from their perspective given the comorbidities --Prophylaxis VTE: Heparin GI: Pantoprazole Lines: Right IJ, left radial Diet: Continue with tube feeds Plan: In/out: +521, urine output 1225, +7 L since coming to the hospital Continue with Zosyn Chest x-ray from today shows worsening right lower lobe opacity with pleural effusion. Will give a dose of Lasix today. Patient still has significant secretions and given the history of dementia his inability to clear the secretion will put him at a very high risk for aspiration and reintubation. Continue with tapering dose of hydrocortisone Magnesium and phosphorus being replaced Did have in-depth discussion with patient's and daughter on 09/12/2023 I have personally spent 38 minutes of critical care time in the direct management of this patient. This is a life/limb threatening event. This includes time spent evaluating patient, direct bedside care, chart review, placing orders, interpretation of diagnostic studies, discussion with consultants, patient, and family members, as well as other required patient management activities. This time is exclusive of all separately billable procedures, and teaching time and separate from and in addition to any other critical care service time. Please note the above document was generated using voice recognition software. It may contain grammatical, syntax or spelling errors. Admission and Anticipated Discharge Date Admission Date: September 11, 2023 Subjective Patient seen and examined at bedside. No acute distress, no adverse events overnight. He was on 0.04 of Levophed, MAP in the mid to high 60s Was on pressure support at the time of examination. Has been spiking low-grade fever Tolerating tube feeds Review of Systems 2 Review of Systems: All systems reviewed & are unremarkable except as noted in Subjective Physical Exam 2 Physical Exam: Constitutional: No acute distress HEENT: PERRLA, arcus senilis bilaterally Respiratory system: Decreased air entry bilaterally, no wheeze, no rhonchi, positive crackles bilaterally CVS: S1-S2 positive, no murmurs or gallops, distant heart sounds Abdomen: Soft, nontender, nondistended, positive bowel sounds x4 Extremities: +1 pulses bilaterally radialis/ dorsalis pedis, no cyanosis, +2 pitting edema bilateral lower extremity Neuro: RASS -2, breathing with the vent Psych: Unable to assess G/U: Positive De [place] Skin: no rashes, warm and dry Lymphatic: no cervical or axillary lymphadenopathy Results & Data Results & Data Vital Signs (Past 12 Hours) Vital Signs Temp Pulse Resp BP Pulse Ox O2 Del Method FiO2 09/13/23 07:16 60 14 97 35 09/13/23 06:42 37.9 C H 60 16 97 Mechanical Vent 35 09/13/23 06:00 38.0 C H 60 17 95 09/13/23 05:09 38.0 C H 62 13 95 09/13/23 05:06 114/64 09/13/23 04:57 38.0 C H 61 15 95 Mechanical Vent 35 09/13/23 04:33 38.0 C H 60 15 96 09/13/23 04:06 38.0 C H 64 16 94 09/13/23 04:06 110/66 09/13/23 04:00 35 09/13/23 04:00 60 110/66 09/13/23 03:33 37.9 C H 60 22 96 09/13/23 03:31 60 16 96 35 09/13/23 03:12 37.9 C H 61 16 95 Mechanical Vent 35 09/13/23 03:06 103/68 09/13/23 02:57 37.8 C H 60 21 96 Mechanical Vent 35 09/13/23 02:33 37.8 C H 60 12 99 Mechanical Vent 35 09/13/23 02:03 37.7 C H 60 13 97 Mechanical Vent 35 09/13/23 01:36 37.7 C H 61 15 96 09/13/23 01:09 37.6 C H 61 18 96 09/13/23 00:33 37.6 C H 62 46 H 97 Mechanical Vent 35 09/13/23 00:03 60 13 96 09/13/23 00:00 35 09/13/23 00:00 60 113/69 09/13/23 00:00 60 09/12/23 23:42 37.5 C 60 16 95 09/12/23 23:17 60 12 95 35 09/12/23 23:03 37.4 C 60 12 97 Mechanical Vent 35 09/12/23 22:15 37.3 C 60 18 96 09/12/23 21:30 37.3 C 61 19 96 09/12/23 21:07 102/57 L 09/12/23 21:03 37.2 C 60 13 97 Mechanical Vent 35 09/12/23 20:39 37.2 C 60 14 96 09/12/23 20:30 60 14 97 35 09/12/23 20:27 37.2 C 60 13 96 09/12/23 20:06 110/64 09/12/23 20:00 Mechanical Vent 09/12/23 20:00 35 09/12/23 20:00 60 102/57 L 09/12/23 19:57 37.3 C 60 13 95 Mechanical Vent 35 Laboratory Results 09/13/23 04:30 09/13/23 04:30 Coding Level of Care Code 17049 CRITICAL CARE 1ST 30-74M Diagnoses Adrenal insufficiency E27.40 Sepsis A41.9 Encephalopathy G93.40 Respiratory failure J96.01 Chronicity: acute Respiratory failure complication: hypoxia Elevated troponin I level R79.89 Shock circulatory R57.9 Severe dementia F03.C0 Paroxysmal atrial fibrillation I48.0 CKD (chronic kidney disease), stage III N18.30 (4) Respiratory failure Chronicity: acute Respiratory failure complication: hypoxia Qualified Code(s): J96.01 - Acute respiratory failure with hypoxia
--- NOTE | 2023-09-13 07:52 | XRay Report ---
XR chest 1V portable HISTORY: 88 years-old Male eval lung brady, lines and tubes, while intubated acute respiratory fail ure COMPARISON: 09/12/2023 TECHNIQUE: AP view of the chest FINDINGS: Endotracheal tube overlies the midline, approximately 4.8 cm superior to the jayla. Median sternotom y. Numerous telemetry leads are coiled over the chest. Right IJ catheter distal tip is noted within t he expected location of the superior cavoatrial junction.. Distal tip of enteric tube projects over t he-body. Left subclavian pacer. No pneumothorax. Cardiomegaly with pulmonary vascular congestion and interstitial coarsening. No pneumothorax. Small r ight greater than left pleural effusions with bibasilar opacities. Degenerative changes of the should ers and spine. Chronic right proximal humeral deformity. IMPRESSION: 1. Cardiomegaly with pulmonary edema. 2. Layering pleural effusions with right greater than left bibasilar consolidation. 3. Lines and tubes as above. ACT 112: Negative or not required by law. The above report was generated using voice recognition software. It may contain grammatical, syntax o r spelling errors. Electronically signed by: Kevin Light M.D. 09/13/2023 7:51 AM
[2023-09-13] MEDS: SODIUM PHOSPHATE 15 MMOL in SODIUM CHLORIDE 0.9% 250 ML IV ONE (08:17)
[2023-09-13] MEDS: PANTOprazole 40 MG in SYRINGE 0 ML IV SCH (08:17)
[2023-09-13] MEDS: MULTI VIT W/MINERALS LIQUID 15 ML UDC NG SCH (08:18)
[2023-09-13] MEDS: MAGNESIUM SULFATE / D5W 1 GM/100 ML BAG IV SCH (08:25)
[2023-09-13] MEDS: FUROSEMIDE INJ 20 MG/2 ML VIAL IV ONE ×2 (13:19→13:22)
--- NOTE | 2023-09-13 18:10 | Hospitalist Progress Note ---
Date of Service September 13, 2023 Assessment & Plan (1) Sepsis: Plan: Patient leukopenic, hypothermic, hypotensive. Etiology of sepsis unclear. Likely multifactorial with dehydration, poor PO intake, probable infection, adrenal insufficiency, and poor reserves. Lactate < 2. Procal negative. VBG without acid-base disturbance. Ammonia 24. Random cortisol - 9.87. TSH 8.41. Inadequate response to acute stressor. CT Head per my read with diffuse brain atrophy, no obvious bleed. Formal read pending. Infectious source unclear - likely pulmonary. CXR extremely poor quality. CT Chest pending. BioFire, blood cultures, and MRSA nares pending. Started on empiric abx. blood cultures pending CT Chest, CT Head ordered MRSA nares and BioFire pending, Utox ordered started on cefepime and empiric vanc stress dose steroids vasopressive support with levophed sedation with fentanyl/propofol while intubated Patient with clinical deterioration with hypotension and respiratory failure as outlined above - now requiring ICU level care with mechanical ventilation and vasopressive support. Hospitalist team will continue to follow along with patient's care. Patient remains intubated on 09/12. will continue to monitor. (2) Acute hypotension: Plan: Patient on levophed - titration per protocol. Goal MAP > 65. (3) Adrenal insufficiency: Plan: Insufficient cortisol response to stressor. Start hydrocortisone 100 mg now with 50 mg Q6H after. Continue to monitor. (4) Respiratory failure: Plan: s/p intubation in the ED by Dr. Parra. Appropriate placement confirmed. Continue mechanical ventilation. (5) Elevated troponin I level: Plan: Peaked 22.4. Likely demand. (6) Acute dehydration: Plan: Fluid resuscitated with 3 L. Likely contributory, but not main cause of hypotension. (7) Hypothermia: Plan: Continue Sean Hugger. If needed could trial fluid warmer. (8) Hypernatremia: Plan: Mild hypernatremia. Continue to monitor. (9) Severe dementia: Plan: Hold home dementia medications while intubated. (10) Airway clearance impairment: Plan: Unable to protect airway. Intubated as above. Continue with mechanical ventilation (11) Encephalopathy: Plan: See above (12) CAD (coronary artery disease): Plan: s/p CABG x 4. Hold home metoprolol, statin, ASA Plan Code status: full DVT ppx: INR 1.3. Holding ASA FENGI: NPO Dispo: ICU Lines: Woods, OGT, A-line, Central line, ETT Admission and Anticipated Discharge Date Admission Date: September 11, 2023 Subjective Patient remains intubated. Review of Systems Review of Systems: All systems reviewed & are unremarkable except as noted in HPI & below Physical Exam Physical Exam: Constitutional: intubated and sedated. HEENT: PERRLA, arcus senilis bilaterally Respiratory system: Decreased air entry bilaterally, no wheeze, no rhonchi, positive crackles bilaterally CVS: S1-S2 positive, no murmurs or gallops, distant heart sounds Abdomen: Soft, nontender, nondistended, positive bowel sounds x4 Extremities: +1 pulses bilaterally radialis/ dorsalis pedis, no cyanosis, +2 pitting edema bilateral lower extremity Neuro: RASS -1, breathing with the vent Psych: Unable to assess G/U: Positive [place] Results & Data Results & Data Vital Signs (Past 12 Hours) Vital Signs Temp Pulse Resp BP Pulse Ox O2 Del Method FiO2 09/13/23 18:00 36.8 C 63 14 97 09/13/23 17:33 36.8 C 60 16 96 09/13/23 17:00 36.9 C 62 19 95 09/13/23 16:30 37.0 C 62 15 95 09/13/23 16:00 37.1 C 64 13 96 09/13/23 16:00 60 09/13/23 16:00 35 09/13/23 16:00 60 09/13/23 15:36 37.1 C 67 13 94 09/13/23 15:06 91/55 L 09/13/23 15:06 37.2 C 60 12 94 09/13/23 15:00 37.2 C 60 14 94 09/13/23 14:45 23 35 09/13/23 14:39 37.2 C 60 13 93 09/13/23 14:12 37.2 C 60 19 92 09/13/23 13:30 37.3 C 60 13 95 09/13/23 13:00 37.3 C 60 14 94 09/13/23 12:00 35 09/13/23 12:00 37.5 C 59 L 14 94 09/13/23 12:00 60 09/13/23 11:09 37.6 C H 60 13 95 09/13/23 10:09 37.6 C H 60 13 97 09/13/23 10:07 60 18 98 35 09/13/23 10:06 119/68 09/13/23 09:48 37.7 C H 62 14 97 09/13/23 08:08 109/70 09/13/23 08:03 37.8 C H 60 12 96 09/13/23 08:00 37.8 C H 60 11 L 97 09/13/23 08:00 Mechanical Vent 35 09/13/23 08:00 61 09/13/23 08:00 35 09/13/23 08:00 60 116/48 L 09/13/23 07:16 60 14 97 35 09/13/23 07:06 37.9 C H 60 15 96 09/13/23 07:06 120/77 09/13/23 06:42 37.9 C H 60 16 97 Mechanical Vent 35 PG Care Time/CCT Total # of Minutes Spent Total Time Spent with Patient: Total time spent is greater than 50% in coordination of care (as documented) at patient's floor/unit and/or counseling patient: Coding Level of Care Code 36099 SUB INP/OBS CARE MIN Diagnoses Sepsis A41.9 Acute hypotension I95.9 Adrenal insufficiency E27.40 Respiratory failure J96.01 Chronicity: acute Respiratory failure complication: hypoxia Elevated troponin I level R79.89 Acute dehydration E86.0 Hypothermia T68.XXXA Encounter type: initial encounter Hypernatremia E87.0 Severe dementia F03.C0 Airway clearance impairment R06.89 Encephalopathy G93.40 Coronary artery disease involving coronary bypass graft of [place] heart without angina pectoris I25.810 Associated angina: without angina Coronary Disease-Associated Artery/Lesion type: bypass graft [place] vs. transplanted heart: [place] heart (4) Respiratory failure Chronicity: acute Respiratory failure complication: hypoxia Qualified Code(s): J96.01 - Acute respiratory failure with hypoxia (7) Hypothermia Encounter type: initial encounter Qualified Code(s): T68.XXXA - Hypothermia, initial encounter (12) CAD (coronary artery disease) Associated angina: without angina Coronary Disease-Associated Artery/Lesion type: bypass graft [place] vs. transplanted heart: [place] heart Qualified Code(s): I25.810 - Atherosclerosis of coronary artery bypass graft(s) without angina pectoris
[2023-09-13] MEDS: ICU ELECTROLYTE REPLACEMENT PROTOCOL SCH (19:54)
[2023-09-14] MEDS: fentaNYL citrate PF 100 MCG/2 ML VIAL IV ONE (01:39)
[2023-09-14 05:30] LABS: Albumin Globulin Ratio 0.8 (0.9-2); Albumin Level 2.4 gm/dl (3.4-5.0); BUN Creatinine Ratio 35.6 (10-20); Bilirubin,Total 1.2 mg/dl (0.2-1.0); Creatinine Clr Calc Pharmacy 55.5 ml/min; Est GFR (African American) 76.6 ml/min; Est GFR (Non-African American) 66.1 ml/min; Phosphorus 2.3 mg/dl (2.5-4.9); Potassium 3.4 mmol/L (3.5-5.1); Total Protein 5.4 gm/dl (6.0-8.3)
[2023-09-14 05:44] LABS: INR 1.5 (0.9-1.1); Prothrombin Time 15.8 Seconds (9.0-12.0)
[2023-09-14 05:48] LABS: Anisocytosis Present; Basophils # (auto) 0.01 K/uL (0.00-0.20); Basophils % (auto) 0.1 %; Hematocrit (blood only) 29.3 % (42.0-52.0); Hemoglobin 9.4 g/dl (14.0-18.0); Immature Granulocytes # (auto) 0.09 K/uL (0.01-0.20); Lymphocytes # (auto) 0.76 K/uL (1.20-3.40); Lymphocytes % (auto) 8.7 %; Mean Corpuscular Hemoglobin 28.7 pg (25.0-34.0); Mean Corpuscular Hgb Conc 32.1 g/dL (32.0-36.0); Mean Corpuscular Volume 89.6 fL (80.0-100.0); Monocytes # (auto) 0.64 K/uL (0.11-0.59); Monocytes % (auto) 7.3 %; Neutrophils # (auto) 7.28 K/uL (1.40-6.50); Neutrophils % (auto) 82.9 %; Nucleated RBC # (auto) 0.04 K/uL (0.00-0.12); Nucleated RBC % (auto) 0.5 %; Ovalocytes 1+; Platelet Count 96 K/uL (130-400); Polychromasia 1+; RDW Coefficient of Variation 21.3 % (11.5-14.5); RDW Standard Deviation 67.8 fL (36.4-46.3); Red Blood Count 3.27 M/uL (4.70-6.10); White Blood Count 8.78 K/ul (4.8-10.8)
[2023-09-14] MEDS ORDERED: SODIUM PHOSPHATE 3 MMOL/1 ML INFUSION IV STA ×2 (06:04→23:27)
[2023-09-14] MEDS: MAGNESIUM SULFATE / D5W 1 GM/100 ML BAG IV SCH (06:24)
[2023-09-14] MEDS: POTASSIUM CHLORIDE 20 MEQ/15 ML UDC NG SCH (06:24)
[2023-09-14] MEDS: SODIUM PHOSPHATE 15 MMOL in SODIUM CHLORIDE 0.9% 250 ML IV ONE (06:34)
--- NOTE | 2023-09-14 07:15 | Critical Care Progress Note ---
Date of Service September 14, 2023 Assessment & Plan (1) Adrenal insufficiency: (2) Sepsis: (3) Encephalopathy: (4) Respiratory failure: (5) Elevated troponin I level: (6) Shock circulatory: (7) Severe dementia: (8) Paroxysmal atrial fibrillation: (9) CKD (chronic kidney disease), stage III: Plan Reason Critically Ill: 88 YOM with end stage dementia- encephalopathic with apneic respirations requiring emergent intubation, he remained hypotensive despite crystalloid resuscitation requiring vasopressor infusions. Neuro - Encephalopathy, end stage dementia, Sedation for mechanical ventilation CAM ICU: [facility] - Patient encephalopathy multifactorial at this time to include base line dementia worsened by metabolic/septic encephalopathy - Head CT - 09/11/2023 - TSH high with normal free T4 - Ammonia within normal limits - Sedation : Fentanyl as needed Cardiac - Shock, sepsis, CAD, PPM - Shock multifactorial at this time to include hypovolemic and likely sepsis from aspiration - Levophed for MAPS >65 - Random cortisol - 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, DDDR currently AV paced with appropriate fire and capture at rate of 60 - CAD with 4v CABG 2001- hold asa currently with elevated INR and bleeding - Troponin negative on arrival - ECHO FEB 2023- EF 50-55% without RWMA mild MR, TAPSE >1.5 (nml) Respiratory - Respiratory failure requiring emergent intubation, Aspiration --Multilobar pneumonia - Patient with respiratory failure requiring emergent intubation secondary to inability to protect airway and ineffective ventilation pattern - Noted pill fragments and bilious secretions in hypopharynx Respiratory bio fire negative for everything GI - Elevated INR - Elevated INR with normal LFTs- on no blood thinners other than ASA - bili elevated to 1.3 RENAL/LYTES - LIAT on CKD III - 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- likely pre-renal at this time - BPH - de luna placed continue while requiring vasopressor support and intubated and sedated ENDO - Hypothyroidism, adrenal insufficiency - Continue Synthroid- TSH pending - Relative insufficiency On hydrocortisone HEME - Thrombocytopenia - INR 1.3 -Monitor H&H ID - Septic shock -Multilobar pneumonia - WBC <5, hypothermia, hypotension, End organ dysfunction of liver (elevated INR), brain - Blood cultures negative to date UA negative -DC vancomycin, change cefepime and Flagyl to Zosyn - Continue to look for other causes -- Gallbladder sludge with possible cholecystitis Abdominal ultrasound 09/11/2023: Cirrhotic liver with small volume ascites, abdomen is mildly distended with biliary sludge, gallbladder wall thickening Surgery on board, no intervention from their perspective given the comorbidities --Prophylaxis VTE: Heparin GI: Pantoprazole Lines: Right IJ, left radial Diet: Continue with tube feeds Plan: In/out: -1.4 L, urine output 2595. +6 L since coming to the hospital Chest x-ray from today shows improvement compared to yesterday. Bilateral small pleural effusion still persists Continue with antibiotic Hypokalemia, hypomagnesemia and hypophosphatemia being replaced Still has significant secretions and given the history of dementia his inability to clear the secretion will put him at a very high risk for aspiration and reintubation. Continue with tapering dose of hydrocortisone Did have in-depth discussion with patient's and daughter on 09/14/2023 I have personally spent 37minutes of critical care time in the direct management of this patient. This is a life/limb threatening event. This includes time spent evaluating patient, direct bedside care, chart review, placing orders, interpretation of diagnostic studies, discussion with consultants, patient, and family members, as well as other required patient management activities. This time is exclusive of all separately billable procedures, and teaching time and separate from and in addition to any other critical care service time. Please note the above document was generated using voice recognition software. It may contain grammatical, syntax or spelling errors. Admission and Anticipated Discharge Date Admission Date: September 11, 2023 Subjective Patient seen and examined at bedside. No acute distress, no adverse events overnight He got a dose of fentanyl last night as he was a little bit restless He was saturating 94-95% on 35% FiO2. He was breathing over the vent Has been afebrile Urinating well Was still needing 0.02 of Levophed. His MAP was 66 Review of Systems 2 Review of Systems: All systems reviewed & are unremarkable except as noted in Subjective Physical Exam 2 Physical Exam: Constitutional: No acute distress HEENT: PERRLA, arcus senilis bilaterally Respiratory system: Decreased air entry bilaterally, no wheeze, no rhonchi, positive crackles bilaterally CVS: S1-S2 positive, no murmurs or gallops, distant heart sounds Abdomen: Soft, nontender, nondistended, positive bowel sounds x4 Extremities: +1 pulses bilaterally radialis/ dorsalis pedis, no cyanosis, +2 pitting edema bilateral lower extremity Neuro: RASS -1, breathing over the vent Psych: Unable to assess G/U: Positive [place] Skin: no rashes, warm and dry Lymphatic: no cervical or axillary lymphadenopathy Results & Data Results & Data Vital Signs (Past 12 Hours) Vital Signs Temp Pulse Resp BP Pulse Ox O2 Del Method FiO2 09/14/23 07:03 36.4 C L 60 16 95 09/14/23 06:30 36.4 C L 60 15 97 09/14/23 06:12 36.4 C L 60 17 96 09/14/23 05:30 36.5 C 60 14 96 09/14/23 04:39 36.4 C L 60 14 96 09/14/23 04:06 36.3 C L 63 14 97 09/14/23 04:06 112/73 09/14/23 04:00 35 09/14/23 03:39 36.4 C L 60 13 96 09/14/23 03:10 61 14 96 35 09/14/23 03:03 36.5 C 60 16 96 09/14/23 02:39 36.6 C 60 15 96 09/14/23 02:06 36.7 C 60 18 96 09/14/23 02:06 103/65 09/14/23 02:00 36.7 C 60 13 96 09/14/23 01:30 36.7 C 60 14 98 09/14/23 01:15 36.8 C 60 17 97 09/14/23 00:57 36.8 C 60 17 96 09/14/23 00:06 36.7 C 60 13 96 09/14/23 00:06 104/65 09/14/23 00:03 36.7 C 60 14 96 09/14/23 00:00 60 09/14/23 00:00 35 09/14/23 00:00 60 09/13/23 23:45 36.7 C 60 13 96 09/13/23 23:18 60 16 96 35 09/13/23 23:00 36.7 C 60 16 96 09/13/23 22:33 36.7 C 60 15 96 09/13/23 22:06 36.7 C 62 15 96 09/13/23 22:06 109/65 09/13/23 21:36 36.6 C 60 12 95 09/13/23 21:09 36.6 C 60 14 95 Mechanical Vent 09/13/23 21:06 97/61 L 09/13/23 20:57 36.6 C 60 15 96 09/13/23 20:45 Mechanical Vent 09/13/23 20:36 36.6 C 62 17 96 09/13/23 20:12 36.7 C 60 18 96 Mechanical Vent 09/13/23 20:00 35 09/13/23 20:00 60 09/13/23 19:45 64 15 97 35 09/13/23 19:42 36.8 C 60 15 96 Laboratory Results 09/14/23 04:38 09/14/23 04:38 Coding Level of Care Code 06701 CRITICAL CARE 1ST 30-74M Diagnoses Adrenal insufficiency E27.40 Sepsis A41.9 Encephalopathy G93.40 Respiratory failure J96.01 Chronicity: acute Respiratory failure complication: hypoxia Elevated troponin I level R79.89 Shock circulatory R57.9 Severe dementia F03.C0 Paroxysmal atrial fibrillation I48.0 CKD (chronic kidney disease), stage III N18.30 (4) Respiratory failure Chronicity: acute Respiratory failure complication: hypoxia Qualified Code(s): J96.01 - Acute respiratory failure with hypoxia
--- NOTE | 2023-09-14 08:24 | XRay Report ---
XR chest 1V portable CLINICAL HISTORY: Respiratory failure. COMPARISON STUDY: Chest CT September 11, 2023. Chest radiograph September 13, 2023. FINDINGS: Tip of endotracheal tube is 2.9 cm above the jayla. Tip of nasogastric tube is within the body of the stomach. Right internal jugular central line remains in place. There are median sternotom y wires. Left subclavian pacer is in place. Cardiomegaly is again noted. There is no pneumothorax. In terstitial thickening persists. There are persistent small bilateral pleural effusions with associate d bibasilar opacities. Left lower lung opacity has increased. IMPRESSION: 1. Satisfactory positioning of lines and tubes. 2. Cardiomegaly with persistent pulmonary edema. 3. Small bilateral pleural effusions with associated bibasilar opacities. Left basilar opacity has in creased since prior exam. ACT 112: Negative or not required by law. Electronically signed by: Bay Moctezuma M.D. 09/14/2023 8:22 AM
[2023-09-14] MEDS ORDERED: CARBOHYDRATES FOR HYPOGLYCEMIA PO PRN (10:00)
[2023-09-14] MEDS ORDERED: DEXTROSE 50% 50 ML SYRINGE IV PRN (10:00)
[2023-09-14] MEDS ORDERED: GLUCOSE 10 TAB/TUBE PO PRN (10:00)
[2023-09-14] MEDS ORDERED: GLUCAGON FOR INJ 1 MG VIAL IM PRN (10:00)
[2023-09-14] MEDS ORDERED: GLUCOSE 40% GEL 15 GM TUBE PO PRN (10:00)
[2023-09-14] MEDS: INSULIN ASPART PER UNIT CHARGE SC SCH (11:39)
[2023-09-14] MEDS: fentaNYL citrate PF 100 MCG/2 ML VIAL IV PRN (11:40)
[2023-09-14] MEDS: HYDROCORTISONE SOD 50 MG in SYRINGE 0 ML IV SCH (16:45)
--- NOTE | 2023-09-14 18:19 | Hospitalist Progress Note ---
Date of Service September 14, 2023 Assessment & Plan (1) Sepsis: Plan: Patient leukopenic, hypothermic, hypotensive. Etiology of sepsis unclear. Likely multifactorial with dehydration, poor PO intake, probable infection, adrenal insufficiency, and poor reserves. Lactate < 2. Procal negative. VBG without acid-base disturbance. Ammonia 24. Random cortisol - 9.87. TSH 8.41. Inadequate response to acute stressor. CT Head per my read with diffuse brain atrophy, no obvious bleed. Formal read pending. Infectious source unclear - likely pulmonary. CXR extremely poor quality. CT Chest pending. BioFire, blood cultures, and MRSA nares pending. Started on empiric abx. blood cultures pending CT Chest, CT Head ordered MRSA nares and BioFire pending, Utox ordered started on cefepime and empiric vanc stress dose steroids vasopressive support with levophed sedation with fentanyl/propofol while intubated Patient with clinical deterioration with hypotension and respiratory failure as outlined above - now requiring ICU level care with mechanical ventilation and vasopressive support. Hospitalist team will continue to follow along with patient's care. Patient remains intubated on 09/13. due to concern that patient will not be able to clear out secretions. ICU team. will continue to monitor. (2) Acute hypotension: Plan: Patient remains on levophed - titration per protocol. Goal MAP > 65. (3) Adrenal insufficiency: Plan: Insufficient cortisol response to stressor. Start hydrocortisone 100 mg now with 50 mg Q6H after. Continue to monitor. (4) Respiratory failure: Plan: s/p intubation in the ED by Dr. Parra. Appropriate placement confirmed. Continue mechanical ventilation. (5) Elevated troponin I level: Plan: Peaked 22.4. Likely demand. (6) Acute dehydration: Plan: Fluid resuscitated with 3 L. Likely contributory, but not main cause of hypotension. (7) Hypothermia: Plan: Continue Sean Hugger. If needed could trial fluid warmer. (8) Hypernatremia: Plan: Mild hypernatremia. Continue to monitor. (9) Severe dementia: Plan: Hold home dementia medications while intubated. (10) Airway clearance impairment: Plan: Unable to protect airway. Intubated as above. Continue with mechanical ventilation (11) Encephalopathy: Plan: See above (12) CAD (coronary artery disease): Plan: s/p CABG x 4. Hold home metoprolol, statin, ASA Plan Code status: full DVT ppx: INR 1.3. Holding ASA FENGI: NPO Dispo: ICU Lines: Woods, OGT, A-line, Central line, ETT Admission and Anticipated Discharge Date Admission Date: September 11, 2023 Subjective 88 yo male continues to remain intubated Review of Systems Review of Systems: All systems reviewed & are unremarkable except as noted in HPI & below Physical Exam Physical Exam: Constitutional: intubated and sedated. HEENT: PERRLA, arcus senilis bilaterally Respiratory system: Decreased air entry bilaterally, no wheeze, no rhonchi, positive crackles bilaterally CVS: S1-S2 positive, no murmurs or gallops, distant heart sounds Abdomen: Soft, nontender, nondistended, positive bowel sounds x4 Extremities: +1 pulses bilaterally radialis/ dorsalis pedis, no cyanosis, +2 pitting edema bilateral lower extremity Neuro: RASS -1, breathing with the vent Psych: Unable to assess G/U: Positive [place] Results & Data Results & Data Vital Signs (Past 12 Hours) Vital Signs Temp Pulse Resp BP Pulse Ox O2 Del Method FiO2 09/14/23 17:00 36.3 C L 68 14 98 09/14/23 16:36 36.3 C L 60 14 96 09/14/23 16:21 36.1 C L 60 15 97 09/14/23 16:00 60 09/14/23 16:00 35 09/14/23 16:00 68 09/14/23 15:42 36.3 C L 60 14 97 09/14/23 15:06 110/67 09/14/23 15:06 36.3 C L 60 30 H 98 09/14/23 15:03 36.3 C L 60 13 98 09/14/23 14:30 36.2 C L 60 13 96 09/14/23 14:16 62 12 96 35 09/14/23 14:06 36.3 C L 60 8 L 97 09/14/23 14:06 115/72 09/14/23 14:03 36.3 C L 60 10 L 97 09/14/23 13:48 36.3 C L 60 9 L 97 09/14/23 13:00 36.4 C L 60 12 97 09/14/23 12:39 36.4 C L 60 13 96 09/14/23 12:18 36.5 C 60 9 L 96 09/14/23 12:00 35 09/14/23 12:00 68 09/14/23 11:33 36.4 C L 60 14 98 09/14/23 11:15 36.4 C L 60 15 96 09/14/23 10:39 60 20 98 35 09/14/23 10:30 36.3 C L 60 22 99 09/14/23 10:15 36.3 C L 60 16 97 09/14/23 10:07 104/67 09/14/23 09:42 36.3 C L 60 14 97 09/14/23 09:30 36.3 C L 60 15 96 09/14/23 09:06 36.4 C L 60 15 97 09/14/23 09:06 107/64 09/14/23 08:30 36.4 C L 60 15 98 09/14/23 08:00 Mechanical Vent 09/14/23 08:00 36.3 C L 65 14 96 09/14/23 08:00 60 09/14/23 08:00 35 09/14/23 08:00 60 09/14/23 07:42 36.3 C L 60 14 96 09/14/23 07:25 Mechanical Vent 09/14/23 07:24 60 15 97 35 09/14/23 07:06 36.4 C L 60 14 95 09/14/23 07:06 105/60 09/14/23 07:03 36.4 C L 60 16 95 09/14/23 06:30 36.4 C L 60 15 97 PG Care Time/CCT Total # of Minutes Spent Total Time Spent with Patient: Total time spent is greater than 50% in coordination of care (as documented) at patient's floor/unit and/or counseling patient: Coding Level of Care Code 80001 SUB INP/OBS CARE 2/35MIN Diagnoses Sepsis A41.9 Acute hypotension I95.9 Adrenal insufficiency E27.40 Respiratory failure J96.01 Chronicity: acute Respiratory failure complication: hypoxia Elevated troponin I level R79.89 Acute dehydration E86.0 Hypothermia T68.XXXA Encounter type: initial encounter Hypernatremia E87.0 Severe dementia F03.C0 Airway clearance impairment R06.89 Encephalopathy G93.40 Coronary artery disease involving coronary bypass graft of [place] heart without angina pectoris I25.810 Associated angina: without angina Coronary Disease-Associated Artery/Lesion type: bypass graft [place] vs. transplanted heart: [place] heart (4) Respiratory failure Chronicity: acute Respiratory failure complication: hypoxia Qualified Code(s): J96.01 - Acute respiratory failure with hypoxia (7) Hypothermia Encounter type: initial encounter Qualified Code(s): T68.XXXA - Hypothermia, initial encounter (12) CAD (coronary artery disease) Associated angina: without angina Coronary Disease-Associated Artery/Lesion type: bypass graft [place] vs. transplanted heart: [place] heart Qualified Code(s): I25.810 - Atherosclerosis of coronary artery bypass graft(s) without angina pectoris
[2023-09-14] MEDS: FUROSEMIDE INJ 20 MG/2 ML VIAL IV ONE (20:14)
[2023-09-14 22:26] LABS: BUN Creatinine Ratio 38.2 (10-20); Calcium 7.8 mg/dl (8.6-10.3); Est GFR (African American) 88.5 ml/min; Est GFR (Non-African American) 76.3 ml/min; Potassium 3.4 mmol/L (3.5-5.1)
[2023-09-14 23:06] LABS: Magnesium 2.1 mg/dl (1.7-2.4); Phosphorus 2.1 mg/dl (2.5-4.9)
[2023-09-15] MEDS: SODIUM PHOSPHATE 15 MMOL in SODIUM CHLORIDE 0.9% 250 ML IV ONE (00:10)
[2023-09-15] MEDS: POTASSIUM CHLORIDE CRTAB 20 MEQ TABCR PO SCH (00:11)
[2023-09-15] MEDS ORDERED: Nursing to Pharmacy Communication SCH (00:15)
[2023-09-15] MEDS: POTASSIUM CHLORIDE 20 MEQ/15 ML UDC PO STA (00:20)
[2023-09-15] MEDS: POTASSIUM CHLORIDE 20 MEQ/15 ML UDC PO ONE (03:57)
[2023-09-15 04:49] LABS: iSTAT Art Bld Gas pCO2 Correct 37 mmHg (35-46); iSTAT Art Bld Gas pH Corrected 7.438 (7.35-7.45); iSTAT Arterial Blood Gas HCO3 25 meg/L (19-24); iSTAT Arterial Blood Gas pCO2 38 mmHg (35-46); iSTAT Arterial Blood Gas pH 7.43 (7.35-7.45); iSTAT Arterial Blood Gas pO2 97 mmHg (80-95); iSTAT Arterial Blood Gas pO2 C 93; iSTAT Carbon Dioxide 26 mmol/L (24-31); iSTAT FiO2 35 %; iSTAT Hematocrit 32 % (42-52); iSTAT Hemoglobin 10.9 g/dl (14.0-18.0); iSTAT Potassium 4.1 mmol/L (3.3-5.0); iSTAT Site Art Line; iSTAT Sodium 146 mmol/L (135-144)
[2023-09-15 05:12] LABS: Hematocrit (blood only) 28.4 % (42.0-52.0); Hemoglobin 9.5 g/dl (14.0-18.0); Mean Corpuscular Hemoglobin 29.3 pg (25.0-34.0); Mean Corpuscular Hgb Conc 33.5 g/dL (32.0-36.0); Mean Corpuscular Volume 87.7 fL (80.0-100.0); Mean Platelet Volume 11.9 fL (9.4-12.4); Nucleated RBC # (auto) 0.04 K/uL (0.00-0.12); Nucleated RBC % (auto) 0.5 %; Platelet Count 102 K/uL (130-400); RDW Standard Deviation 66.4 fL (36.4-46.3); Red Blood Count 3.24 M/uL (4.70-6.10); White Blood Count 7.79 K/ul (4.8-10.8)
[2023-09-15 05:39] LABS: Partial Thromboplastin Ratio 1.4; Partial Thromboplastin Time 39 Seconds (21-31)
[2023-09-15 05:58] LABS: BUN Creatinine Ratio 38.4 (10-20); Calcium 7.8 mg/dl (8.6-10.3); Creatinine Clr Calc Pharmacy 65.2 ml/min; Est GFR (African American) 89.7 ml/min; Est GFR (Non-African American) 77.4 ml/min; Phosphorus 2.6 mg/dl (2.5-4.9); Potassium 4.4 mmol/L (3.5-5.1)
--- NOTE | 2023-09-15 07:04 | XRay Report ---
XR chest 1V portable CLINICAL HISTORY: Respiratory failure. COMPARISON STUDY: Chest CT September 11, 2023. Chest radiograph September 14, 2023. FINDINGS: The tip of the endotracheal tube is 3.3 cm above the jayla. Tip of nasogastric tube is wit hin the body of the stomach. Right internal jugular central line remains in place. There is a dual-le ad left subclavian pacer and median sternotomy wires. Cardiomegaly is again noted. There is no pneumo thorax. Small bilateral pleural effusions with extensive bibasilar opacities persist. Interstitial th ickening is similar to prior exam. IMPRESSION: 1. Satisfactory positioning of lines and tubes. 2. Cardiomegaly with persistent pulmonary edema. 2. No change in small bilateral pleural effusions with extensive bibasilar opacities. ACT 112: Negative or not required by law. Electronically signed by: Bay Moctezuma M.D. 09/15/2023 7:02 AM
--- NOTE | 2023-09-15 07:28 | Critical Care Progress Note ---
Date of Service September 15, 2023 Assessment & Plan (1) Adrenal insufficiency: (2) Sepsis: (3) Encephalopathy: (4) Respiratory failure: (5) Elevated troponin I level: (6) Shock circulatory: (7) Severe dementia: (8) Paroxysmal atrial fibrillation: (9) CKD (chronic kidney disease), stage III: Plan Reason Critically Ill: 88 YOM with end stage dementia- encephalopathic with apneic respirations requiring emergent intubation, he remained hypotensive despite crystalloid resuscitation requiring vasopressor infusions. Neuro - Encephalopathy, end stage dementia, Sedation for mechanical ventilation CAM ICU: [facility] - Patient encephalopathy multifactorial at this time to include base line dementia worsened by metabolic/septic encephalopathy - Head CT - 09/11/2023 - TSH high with normal free T4 - Ammonia within normal limits - Sedation : Fentanyl as needed Cardiac - Shock, sepsis, CAD, PPM - Shock multifactorial at this time to include hypovolemic and likely sepsis from aspiration - Levophed for MAPS >65 - Random cortisol - 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, DDDR currently AV paced with appropriate fire and capture at rate of 60 - CAD with 4v CABG 2001- hold asa currently with elevated INR and bleeding - Troponin negative on arrival - ECHO FEB 2023- EF 50-55% without RWMA mild MR, TAPSE >1.5 (nml) Respiratory - Respiratory failure requiring emergent intubation, Aspiration --Multilobar pneumonia - Patient with respiratory failure requiring emergent intubation secondary to inability to protect airway and ineffective ventilation pattern - Noted pill fragments and bilious secretions in hypopharynx Respiratory bio fire negative for everything GI - Elevated INR - Elevated INR with normal LFTs- on no blood thinners other than ASA - bili elevated to 1.3 RENAL/LYTES - LIAT on CKD III - 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- likely pre-renal at this time - BPH - de luna placed continue while requiring vasopressor support and intubated and sedated ENDO - Hypothyroidism, adrenal insufficiency - Continue Synthroid- TSH pending - Relative insufficiency On hydrocortisone HEME - Thrombocytopenia - INR 1.3 -Monitor H&H ID - Septic shock -Multilobar pneumonia - WBC <5, hypothermia, hypotension, End organ dysfunction of liver (elevated INR), brain - Blood cultures negative to date UA negative -DC vancomycin, change cefepime and Flagyl to Zosyn - Continue to look for other causes -- Gallbladder sludge with possible cholecystitis Abdominal ultrasound 09/11/2023: Cirrhotic liver with small volume ascites, abdomen is mildly distended with biliary sludge, gallbladder wall thickening Surgery on board, no intervention from their perspective given the comorbidities --Prophylaxis VTE: Heparin GI: Pantoprazole Lines: Right IJ, left radial Diet: Continue with tube feeds Plan: In/out: -221, urine output 1715. +5 L since coming to the hospital Chest x-ray from today still shows increased cardiac silhouette with minimal bilateral pleural effusion Continue with antibiotic Give a dose of Lasix today The secretions have decreased in amount. Will give a trial of extubation today Still has significant secretions and given the history of dementia his inability to clear the secretion will put him at a very high risk for aspiration and reintubation. Continue with tapering dose of hydrocortisone Did have in-depth discussion with patient's and daughter on 09/14/2023 I have personally spent 35 minutes of critical care time in the direct management of this patient. This is a life/limb threatening event. This includes time spent evaluating patient, direct bedside care, chart review, placing orders, interpretation of diagnostic studies, discussion with consultants, patient, and family members, as well as other required patient management activities. This time is exclusive of all separately billable procedures, and teaching time and separate from and in addition to any other critical care service time. Please note the above document was generated using voice recognition software. It may contain grammatical, syntax or spelling errors. Admission and Anticipated Discharge Date Admission Date: September 11, 2023 Subjective Patient seen and examined at bedside. No acute distress, no dressings overnight Has been off Levophed for 12 hours. Systolic blood pressure was in the 120s with heart rate 60 at the time of examination Was saturating 98% on ventilator, was breathing over the vent Has been afebrile Review of Systems 2 Review of Systems: All systems reviewed & are unremarkable except as noted in Subjective Physical Exam 2 Physical Exam: Constitutional: No acute distress HEENT: PERRLA, arcus senilis bilaterally Respiratory system: Decreased air entry bilaterally, no wheeze, no rhonchi, positive crackles bilaterally CVS: S1-S2 positive, no murmurs or gallops, distant heart sounds Abdomen: Soft, nontender, nondistended, positive bowel sounds x4 Extremities: +1 pulses bilaterally radialis/ dorsalis pedis, no cyanosis, +2 pitting edema bilateral lower extremity Neuro: Breathing over the vent Psych: Unable to assess G/U: Positive De Luna Skin: no rashes, warm and dry Lymphatic: no cervical or axillary lymphadenopathy Results & Data Results & Data Vital Signs (Past 12 Hours) Vital Signs Temp Pulse Resp BP Pulse Ox O2 Del Method FiO2 09/15/23 07:03 36.4 C L 60 14 97 Mechanical Vent 35 09/15/23 06:09 36.3 C L 60 14 117/55 L 97 Mechanical Vent 35 09/15/23 05:06 36.3 C L 60 14 101/64 97 Mechanical Vent 35 09/15/23 04:10 64 14 97 35 09/15/23 04:00 36.2 C L 60 15 111/67 95 Mechanical Vent 35 09/15/23 04:00 35 09/15/23 03:00 36.1 C L 60 14 103/60 95 Mechanical Vent 35 09/15/23 02:15 36.1 C L 60 15 101/59 L 95 Mechanical Vent 35 09/15/23 01:09 36.0 C L 60 16 105/60 94 Mechanical Vent 35 09/15/23 00:03 35.8 C L 60 15 107/69 97 Mechanical Vent 35 09/15/23 00:00 35 09/14/23 23:26 60 14 95 35 09/14/23 23:00 35.7 C L 60 14 99/64 L 94 Mechanical Vent 35 09/14/23 22:06 35.7 C L 60 14 94/60 L 96 Mechanical Vent 35 09/14/23 21:18 35.9 C L 60 15 118/71 97 Mechanical Vent 35 09/14/23 20:05 60 16 96 35 09/14/23 20:03 35.9 C L 60 14 104/62 96 Mechanical Vent 35 09/14/23 20:00 Mechanical Vent 35 09/14/23 20:00 35 Laboratory Results 09/15/23 04:46 09/15/23 04:46 Coding Level of Care Code 62819 CRITICAL CARE 1ST 30-74M Diagnoses Adrenal insufficiency E27.40 Sepsis A41.9 Encephalopathy G93.40 Respiratory failure J96.01 Chronicity: acute Respiratory failure complication: hypoxia Elevated troponin I level R79.89 Shock circulatory R57.9 Severe dementia F03.C0 Paroxysmal atrial fibrillation I48.0 CKD (chronic kidney disease), stage III N18.30 (4) Respiratory failure Chronicity: acute Respiratory failure complication: hypoxia Qualified Code(s): J96.01 - Acute respiratory failure with hypoxia
[2023-09-15] MEDS: FUROSEMIDE INJ 20 MG/2 ML VIAL IV ONE (07:51)
[2023-09-15] MEDS: MAGNESIUM OXIDE 400 MG TAB NG SCH (07:52)
--- NOTE | 2023-09-15 16:19 | Hospitalist Progress Note ---
Date of Service September 15, 2023 Assessment & Plan (1) Sepsis: Plan: Patient leukopenic, hypothermic, hypotensive. Etiology of sepsis unclear. Likely multifactorial with dehydration, poor PO intake, probable infection, adrenal insufficiency, and poor reserves. Lactate < 2. Procal negative. VBG without acid-base disturbance. Ammonia 24. Random cortisol - 9.87. TSH 8.41. Inadequate response to acute stressor. CT Head per my read with diffuse brain atrophy, no obvious bleed. Formal read pending. Infectious source unclear - likely pulmonary. CXR extremely poor quality. CT Chest pending. BioFire, blood cultures, and MRSA nares pending. Started on empiric abx. blood cultures pending CT Chest, CT Head ordered MRSA nares and BioFire pending, Utox ordered started on cefepime and empiric vanc stress dose steroids vasopressive support with levophed sedation with fentanyl/propofol while intubated Patient with clinical deterioration with hypotension and respiratory failure as outlined above - now requiring ICU level care with mechanical ventilation and vasopressive support. Hospitalist team will continue to follow along with patient's care. Patient was extubated. Given poor quality of life, will consult palliative care. ICU team. will continue to monitor. (2) Acute hypotension: Plan: Patient now off levophed- titration per protocol. Goal MAP > 65. (3) Adrenal insufficiency: Plan: Insufficient cortisol response to stressor. Start hydrocortisone 100 mg now with 50 mg Q6H after. Continue to monitor. (4) Respiratory failure: Plan: s/p intubation in the ED by Dr. Parra. Appropriate placement confirmed. Continue mechanical ventilation. (5) Elevated troponin I level: Plan: Peaked 22.4. Likely demand. (6) Acute dehydration: Plan: Fluid resuscitated with 3 L. Likely contributory, but not main cause of hypotension. (7) Hypothermia: Plan: Continue Sean Hugger. If needed could trial fluid warmer. (8) Hypernatremia: Plan: Mild hypernatremia. Continue to monitor. (9) Severe dementia: Plan: Hold home dementia medications while intubated. (10) Airway clearance impairment: Plan: Unable to protect airway. Intubated as above. Continue with mechanical ventilation (11) Encephalopathy: Plan: See above (12) CAD (coronary artery disease): Plan: s/p CABG x 4. Hold home metoprolol, statin, ASA Plan Code status: full DVT ppx: INR 1.3. Holding ASA FENGI: NPO Dispo: ICU Lines: Woods, OGT, A-line, Central line, ETT Admission and Anticipated Discharge Date Admission Date: September 11, 2023 Subjective Patient is now extubated. Poor historian due to dementia. Review of Systems Review of Systems: All systems reviewed & are unremarkable except as noted in HPI & below Physical Exam Physical Exam: Constitutional: extubated. HEENT: PERRLA, arcus senilis bilaterally Respiratory system: Decreased air entry bilaterally, no wheeze, no rhonchi, positive crackles bilaterally CVS: S1-S2 positive, no murmurs or gallops, distant heart sounds Abdomen: Soft, nontender, nondistended, positive bowel sounds x4 Extremities: +1 pulses bilaterally radialis/ dorsalis pedis, no cyanosis, +2 pitting edema bilateral lower extremity Neuro: RASS -1, breathing with the vent Psych: Unable to assess G/U: Positive Woods Results & Data Results & Data Vital Signs (Past 12 Hours) Vital Signs Temp Pulse Resp BP Pulse Ox O2 Del Method O2 Flow Rate 09/15/23 11:05 36.3 C L 66 23 118/71 09/15/23 10:24 Nasal Cannula 2 09/15/23 10:18 60 09/15/23 10:05 36.4 C L 64 6 L 113/66 97 09/15/23 09:55 60 16 99 09/15/23 09:02 36.4 C L 63 9 L 108/65 99 09/15/23 08:05 36.4 C L 60 14 111/61 98 09/15/23 07:58 60 16 98 09/15/23 07:03 36.4 C L 60 14 97 Mechanical Vent 09/15/23 06:09 36.3 C L 60 14 117/55 L 97 Mechanical Vent 09/15/23 05:06 36.3 C L 60 14 101/64 97 Mechanical Vent FiO2 09/15/23 11:05 09/15/23 10:24 09/15/23 10:18 09/15/23 10:05 09/15/23 09:55 35 09/15/23 09:02 09/15/23 08:05 09/15/23 07:58 35 09/15/23 07:03 35 09/15/23 06:09 35 09/15/23 05:06 35 PG Care Time/CCT Total # of Minutes Spent Total Time Spent with Patient: Total time spent is greater than 50% in coordination of care (as documented) at patient's floor/unit and/or counseling patient: Coding Level of Care Code 04114 SUB INP/OBS CARE 2/35MIN Diagnoses Sepsis A41.9 Acute hypotension I95.9 Adrenal insufficiency E27.40 Respiratory failure J96.01 Chronicity: acute Respiratory failure complication: hypoxia Elevated troponin I level R79.89 Acute dehydration E86.0 Hypothermia T68.XXXA Encounter type: initial encounter Hypernatremia E87.0 Severe dementia F03.C0 Airway clearance impairment R06.89 Encephalopathy G93.40 Coronary artery disease involving coronary bypass graft of [place] heart without angina pectoris I25.810 Associated angina: without angina Coronary Disease-Associated Artery/Lesion type: bypass graft [place] vs. transplanted heart: [place] heart (4) Respiratory failure Chronicity: acute Respiratory failure complication: hypoxia Qualified Code(s): J96.01 - Acute respiratory failure with hypoxia (7) Hypothermia Encounter type: initial encounter Qualified Code(s): T68.XXXA - Hypothermia, initial encounter (12) CAD (coronary artery disease) Associated angina: without angina Coronary Disease-Associated Artery/Lesion type: bypass graft [place] vs. transplanted heart: [place] heart Qualified Code(s): I25.810 - Atherosclerosis of coronary artery bypass graft(s) without angina pectoris
[2023-09-16 05:32] LABS: Calcium 8.1 mg/dl (8.6-10.3); Creatinine Clr Calc Pharmacy 66.7 ml/min; Est GFR (African American) 90.6 ml/min; Est GFR (Non-African American) 78.2 ml/min; Phosphorus 2.9 mg/dl (2.5-4.9); Potassium 3.8 mmol/L (3.5-5.1)
[2023-09-16 05:41] LABS: Partial Thromboplastin Ratio 1.4; Partial Thromboplastin Time 37 Seconds (21-31)
[2023-09-16] MEDS: MAGNESIUM SULFATE / D5W 1 GM/100 ML BAG IV SCH (06:36)
[2023-09-16] MEDS: POTASSIUM CHLORIDE / WTR 20 MEQ/100 ML PLCT IV SCH (06:36)
--- NOTE | 2023-09-16 07:47 | Critical Care Progress Note ---
Date of Service September 16, 2023 Assessment & Plan (1) Adrenal insufficiency: (2) Sepsis: (3) Encephalopathy: (4) Respiratory failure: (5) Elevated troponin I level: (6) Shock circulatory: (7) Severe dementia: (8) Paroxysmal atrial fibrillation: (9) CKD (chronic kidney disease), stage III: Plan Reason Critically Ill: 88 YOM with end stage dementia- encephalopathic with apneic respirations requiring emergent intubation, he remained hypotensive despite crystalloid resuscitation requiring vasopressor infusions. Neuro - Encephalopathy, end stage dementia, Sedation for mechanical ventilation CAM ICU: [facility] - Patient encephalopathy multifactorial at this time to include base line dementia worsened by metabolic/septic encephalopathy - Head CT - 09/11/2023 - TSH high with normal free T4 - Ammonia within normal limits - Sedation : Fentanyl as needed Cardiac -s/p shock, sepsis, CAD, PPM - Shock multifactorial at this time to include hypovolemic and likely sepsis from aspiration Has been off Levophed for more than 24 hours - PPM - placed 2019 for 2 HB, DDDR currently AV paced with appropriate fire and capture at rate of 60 - CAD with 4v CABG 2001- hold asa currently with elevated INR and bleeding - Troponin negative on arrival - ECHO FEB 2023- EF 50-55% without RWMA mild MR, TAPSE >1.5 (nml) Respiratory - -- S/p VDRF Secondary to multilobar pneumonia Extubated 09/15/2023 --Multilobar pneumonia - Patient with respiratory failure requiring emergent intubation secondary to inability to protect airway and ineffective ventilation pattern - Noted pill fragments and bilious secretions in hypopharynx Respiratory bio fire negative for everything GI - Elevated INR - Elevated INR with normal LFTs- on no blood thinners other than ASA - bili elevated to 1.3 RENAL/LYTES - LIAT on CKD III - 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 at this time - BPH - de luna placed continue while requiring vasopressor support and intubated and sedated ENDO - Hypothyroidism, adrenal insufficiency - Continue Synthroid- TSH 8.4 with normal free T4 - Relative adrenal insufficiency On hydrocortisone HEME - Thrombocytopenia - INR 1.3 -Monitor H&H ID -s/p septic shock -Multilobar pneumonia - WBC <5, hypothermia, hypotension, End organ dysfunction of liver (elevated INR), brain - Blood cultures negative to date UA negative -DC vancomycin, change cefepime and Flagyl to Zosyn - Continue to look for other causes -- Gallbladder sludge with possible cholecystitis Abdominal ultrasound 09/11/2023: Cirrhotic liver with small volume ascites, abdomen is mildly distended with biliary sludge, gallbladder wall thickening Surgery on board, no intervention from their perspective given the comorbidities --Prophylaxis VTE: Heparin GI: Pantoprazole Lines: Right IJ, left radial discontinued 09/15/2023 Diet: Continue with tube feeds Plan: In/out: -1.7 L, urine output 2024, +4 L since coming to the hospital Continue with tapering dose of hydrocortisone Give 20 mg of Lasix today Complete the course of antibiotic Will get swallow eval today Patient hemodynamically stable to be downgraded to a medical floor. Discussed with primary team. DC De Luna and central line prior to downgrade Given the history of dementia his inability to clear the secretion will put him at a very high risk for aspiration and intubation in future Did have in-depth discussion with patient's and daughter on 09/14/2023 I have personally spent 35 minutes of critical care time in the direct management of this patient. This is a life/limb threatening event. This includes time spent evaluating patient, direct bedside care, chart review, placing orders, interpretation of diagnostic studies, discussion with consultants, patient, and family members, as well as other required patient management activities. This time is exclusive of all separately billable procedures, and teaching time and separate from and in addition to any other critical care service time. Please note the above document was generated using voice recognition software. It may contain grammatical, syntax or spelling errors. Admission and Anticipated Discharge Date Admission Date: September 11, 2023 Subjective Patient seen and examined at bedside. No acute distress, no adverse events overnight He was saturating 98-99% on 2 L nasal cannula. I took him off oxygen. His systolic blood pressure was 116 with MAP in the high 60s to low 70s He is nonverbal. Has been afebrile, urinating well with Lasix Review of Systems 2 Review of Systems: All systems reviewed & are unremarkable except as noted in Subjective Physical Exam 2 Physical Exam: Constitutional: No acute distress HEENT: PERRLA, arcus senilis bilaterally Respiratory system: Decreased air entry bilaterally, no wheeze, no rhonchi, positive crackles bilaterally CVS: S1-S2 positive, no murmurs or gallops, distant heart sounds Abdomen: Soft, nontender, nondistended, positive bowel sounds x4 Extremities: +1 pulses bilaterally radialis/ dorsalis pedis, no cyanosis, +2 pitting edema bilateral lower extremity Neuro: Awake and alert Psych: Unable to assess G/U: Positive Ed Luna Skin: no rashes, warm and dry Lymphatic: no cervical or axillary lymphadenopathy Results & Data Results & Data Vital Signs (Past 12 Hours) Vital Signs Temp Pulse Resp BP BP Pulse Ox O2 Del Method 09/16/23 06:12 35.9 C L 60 10 L 99 09/16/23 06:00 120/68 09/16/23 05:06 36.0 C L 60 13 99 09/16/23 05:00 117/66 09/16/23 04:06 118/67 09/16/23 04:06 36.0 C L 60 13 99 09/16/23 04:03 95 09/16/23 03:00 116/65 09/16/23 03:00 36.1 C L 60 14 95 09/16/23 02:09 36.2 C L 61 11 L 98 09/16/23 02:00 115/63 09/16/23 01:18 36.3 C L 60 4 L 97 09/16/23 01:00 113/64 09/16/23 00:12 36.4 C L 60 7 L 93 09/16/23 00:06 118/62 09/16/23 00:00 60 09/15/23 23:54 36.4 C L 63 9 L 95 09/15/23 23:09 36.3 C L 60 9 L 97 09/15/23 23:00 125/65 09/15/23 22:03 36.3 C L 60 9 L 93 09/15/23 22:00 114/62 09/15/23 21:09 36.2 C L 61 10 L 92 09/15/23 21:00 118/66 09/15/23 20:30 Nasal Cannula 09/15/23 20:03 36.1 C L 60 16 94 09/15/23 20:00 114/65 O2 Flow Rate 09/16/23 06:12 09/16/23 06:00 09/16/23 05:06 09/16/23 05:00 09/16/23 04:06 09/16/23 04:06 09/16/23 04:03 09/16/23 03:00 09/16/23 03:00 09/16/23 02:09 09/16/23 02:00 09/16/23 01:18 09/16/23 01:00 09/16/23 00:12 09/16/23 00:06 09/16/23 00:00 09/15/23 23:54 09/15/23 23:09 09/15/23 23:00 09/15/23 22:03 09/15/23 22:00 09/15/23 21:09 09/15/23 21:00 09/15/23 20:30 2 09/15/23 20:03 09/15/23 20:00 Laboratory Results 09/15/23 04:46 09/16/23 04:37 Coding Level of Care Code 29004 SUB INP/OBS CARE 3/50MIN Diagnoses Adrenal insufficiency E27.40 Sepsis A41.9 Encephalopathy G93.40 Respiratory failure J96.01 Chronicity: acute Respiratory failure complication: hypoxia Elevated troponin I level R79.89 Shock circulatory R57.9 Severe dementia F03.C0 Paroxysmal atrial fibrillation I48.0 CKD (chronic kidney disease), stage III N18.30 (4) Respiratory failure Chronicity: acute Respiratory failure complication: hypoxia Qualified Code(s): J96.01 - Acute respiratory failure with hypoxia
[2023-09-16] MEDS: FUROSEMIDE INJ 20 MG/2 ML VIAL IV ONE (08:02)
--- NOTE | 2023-09-16 11:06 | Palliative Care Consultation ---
Date of Consultation September 16, 2023 Assessment & Plan (1) Altered mental status: (2) Dementia: Dementia behavioral or psychological symptom: with other behavioral disturbance Dementia severity: severe Dementia type: unspecified type Qualified Code(s): F03.C18 - Unspecified dementia, severe, with other behavioral disturbance (3) Weakness generalized: (4) Discussion about advance care planning held with family member: A very detailed and extensive 60min face to face ACP meeting was held with Mrs. Austin and dtr. We had a long discussion about vascular dementia, its progression and the nature of terminal dementias. Her questions were answered. She voiced many concerns about how his care is delivered at SNF and she feels more attention is needed. We discussed re intubation. I advised he is not able to safely protect his airway/clear secretions. He will continue to aspirate and have resp failure. If reintubated, he will need a trach and peg with dc to vent SNF, advised these are not local but if the goal is to sustain life at all costs then that is the trade off for it. she states he would not want to live that way. we discussed a new option where we fix what can be fixed/she desires trial of bipap and abtx but if he declines in spite fo efforts we move to comfort. She is in agreement and therefore a new polst has been completed. He is dnr/dni in event of natural . FOR PURPOSES OF THIS ADMISSION HE IS CONDITIONAL CODE FOR NO CARDIAC EFFORTS AND NO INUTBATION BUT OK FOR BIPAP AND MEDICATIONS INCL ABTX. If declining then trial of limited intervention and abtx including bipap but no reintubation. She does not want peg and trach. She is much better informed about dementia and its progression. She is also aware he will likely from as piration related complications in the future. She has the original polst and 2 additional copies. A copy was submitted to [facility]. Clinic follow up offered, contact info provided. (5) Palliative care by specialist: Met with pt/family. Provided overview of Palliative Medicine, a subspecialty that provides specialized medical care for people living with a serious illness by offering a focus on quality of life through reduction of symptom burden/more control over their illness, for both the patient and family. We care for patients of any age/advancing stage of a serious illness and can be provided along with curative treatment. We are not hospice, which is a visiting nurse service that focuses on care delivered at the very end of life. Plan as above Thank you for allowing us to participate in the ongoing care of this patient. Please page with any additional concerns. Eugene Dupree DNP Director, Palliative Medicine History of Present Illness Reason for Consultation: end stage dementia/ goals of care Attending Physician: Jax Barrett History of Present Illness Manuel is an 88-year-old male who presented to the emergency department on September 10, 2023 with an evaluation/complaint of altered mental status. It was suspected that he had an infection of some sort. He was noted to be hypotensive. He is unable to provide any history due to his very severe end-stage dementia. His had reported at the time that he had not complained of any recent concerns. The senior care reports he had no new known falls. There is also no report of any GI distress including vomiting, abdominal pain or chest pain. Admission for leukopenic, hypothermic, hypotensive. Etiology of sepsis unclear. Likely multifactorial with dehydration, poor PO intake, probable infection, adrenal insufficiency, and poor reserves. Lactate < 2. Procal negative. VBG without acid-base disturbance. Ammonia 24. Random cortisol - 9.87. TSH 8.41. Inadequate response to acute stressor. CT Head per my read with diffuse brain atrophy, no obvious bleed. Formal read pending. Infectious source unclear - likely pulmonary. CXR extremely poor quality. CT Chest pending. BioFire, blood cultures, and MRSA nares pending. Started on empiric abx. He he has been found to have adrenal insufficiency, sepsis, encephalopathy, respiratory failure requiring intubation for which he is now extubated, circulatory shock, very severe end-stage dementia, paroxysmal atrial fibrillation and CKD stage III. 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 He was extubated yesterday and remains hemodynamically stable. Overall concern is that he has an inability to clear his secretions and this places him at very high risk for aspiration and the need for reintubation. Without a reliable method to protect his airway, he will then need a tracheostomy with PEG and transition to events in a facility. There is been extensive discussions documented in the chart with his family which include his and daughter. Overall, family decisions seem to be consistent with continuing aggressive levels of care even though he has a terminal neurologic condition. Allergies Allergy/AdvReac Type Severity Reaction Status Date / Time No Known Allergies Allergy Verified 09/11/23 01:00 Home Medications Medication Instructions Recorded Confirmed Type Saccharomyces boulardii 250 mg 250 mg PO QAM 02/09/23 09/11/23 History capsule (Florastor) acetaminophen 325 mg tablet 650 mg PO Q4 PRN Fever Or Pain 02/09/23 09/11/23 History (Tylenol) aspirin 81 mg chewable tablet 81 mg PO QAM 02/09/23 09/11/23 History cholecalciferol (vitamin D3) 25 50 mcg PO DAILY 02/09/23 09/11/23 History mcg (1,000 unit) tablet (Vitamin D3) cyanocobalamin (vitamin B-12) 500 500 mcg PO DAILY 02/09/23 09/11/23 History mcg tablet (Vitamin B-12) docusate sodium 100 mg tablet 100 mg PO Q24H PRN 02/09/23 09/11/23 History Constipation-GIVE ON DAY 2 IN NO BM doxazosin 1 mg tablet 1 mg PO HS 02/09/23 09/11/23 History escitalopram oxalate 10 mg tablet 15 mg PO QAM 02/09/23 09/11/23 History levothyroxine 50 mcg tablet 50 mcg PO QAM 02/09/23 09/11/23 History metoprolol tartrate 50 mg tablet 50 mg PO BID 02/09/23 09/11/23 History multivitamin 1 tab PO DAILY 02/09/23 09/11/23 History nitroglycerin 0.4 mg sublingual 0.4 mg sublingual DIRECTED PRN 02/09/23 09/11/23 History tablet Chest Pain polyethylene glycol 3350 17 gram 17 g PO .Q3DAYS 02/09/23 09/11/23 History oral powder packet (Miralax) sennosides 8.6 mg-docusate sodium 1 tab-cap PO AMHS 02/09/23 09/11/23 History 50 mg tablet (Senna-S) simvastatin 20 mg tablet 20 mg PO QPM 02/09/23 09/11/23 History risperidone 1 mg/mL oral solution 0 mg PO HS 09/11/23 09/11/23 History sodium chloride 0.65 % nasal spray 2 spray NA Q2H PRN DRY 09/11/23 09/11/23 Hi story aerosol (Saline Mist) NOSE/EPISTAXIS Patient History Medical History Acute hypotension Short-term memory loss Kidney stone 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 Sinus bradycardia Encounter for pre-operative examination Raynauds syndrome MILD (EFFECTING FINGERS) Hypertension Hyperlipidemia Cellulitis of left hand Surgical History History of tonsillectomy History of inguinal hernia repair Hx of hernia repair repair of inguinal hernia History of cataract surgery RT/ LT History of colonoscopy Blocked tear duct repair of of tear duct History of cardiac cath 02/2002 and then needed cabg x 4 Family History Sister Family history of diabetes mellitus Hypertension Family/Other Family history of diabetes mellitus Father Acute myocardial infarction Denies family history of Ovarian cancer Prostate cancer Myocardial infarction Breast cancer Colorectal cancer Social History Smoking Status: Unknown if ever smoked Second Hand Exposure: No; Do You Dip or Chew Tobacco: No (pt intubated); Tobacco Cessation Education Requested by Patient: No Hx Alcohol Use: No Hx Substance Use: No Preferred Language: French Communication Ability: Impaired Communication Ability Comment: pt intubated Visual Impairment: Limited Hearing Ability: Normal Oil Ref[employer] Operator Required: No Beliefs That Will Affect Care: None marital status: Current Living Situation: Care Home Current Living Situation Comment: lives at [facility] current occupational status: retired How many Children do You have: 2 Other Information That Helps Us Care for You: No Feels Safe at Home: Yes Safety Concerns: Feels Safe At This Time Childhood Exposure to Second-Hand Smoke: No caffeine: Yes (coffee and sometimes tea ) Dental Care, Regularly: Yes Physical Activity Frequency: Daily Physical Activity Frequency Comment: walks 40 mins a day Seatbelt Use: always Sunscreen Use: Yes Assistive Devices: Mechanical Lift and Wheelchair Review of Systems Review of Systems: Unobtainable due to cognitive status Physical Exam Physical Exam: FAST Stage 7e Constitutional: + ill appearing, + altered mental status , + behavioral limitations, + disheveled, + diaphoretic and + lethargic Eyes: reactive pupils ENMT: Mouth: + dry oral mucous membranes and + poor dentition Neck: normal visual inspection and trachea midline Respiratory: normal respiratory effort and symmetric chest movement Auscultation: + diminished lung sounds and + rhonchi Cardiovascular: Rate/Rhythm: + irregularly irregular Heart Sounds: no murmur Gastrointestinal (Abdomen): Inspection/Auscultation: + abdomen distended and normal bowel sounds Musculoskeletal: gen weakness Skin: pale, warm, venous insuff changes BLE Neurologic: non verbal lethargic but opens eyes to voice unable to follow commands Results & Data Vital Signs (Past 12 Hours) Vital Signs Temp Pulse Resp BP BP Pulse Ox 09/16/23 08:30 35.6 C L 60 14 94 09/16/23 08:21 35.6 C L 60 16 100 09/16/23 08:00 60 09/16/23 08:00 116/71 09/16/23 07:30 35.7 C L 60 7 L 98 09/16/23 07:00 117/69 09/16/23 07:00 35.8 C L 60 18 97 09/16/23 06:12 35.9 C L 60 10 L 99 09/16/23 06:00 120/68 09/16/23 05:06 36.0 C L 60 13 99 09/16/23 05:00 117/66 09/16/23 04:06 118/67 09/16/23 04:06 36.0 C L 60 13 99 09/16/23 04:03 95 09/16/23 03:00 116/65 09/16/23 03:00 36.1 C L 60 14 95 09/16/23 02:09 36.2 C L 61 11 L 98 09/16/23 02:00 115/63 09/16/23 01:18 36.3 C L 60 4 L 97 09/16/23 01:00 113/64 09/16/23 00:12 36.4 C L 60 7 L 93 09/16/23 00:06 118/62 09/16/23 00:00 60 09/15/23 23:54 36.4 C L 63 9 L 95 09/15/23 23:09 36.3 C L 60 9 L 97 Laboratory Results 09/16/23 09/16/23 09/15/23 Range/Units 04:37 00:28 17:33 WBC (4.8-10.8) K/ul RBC (4.70-6.10) M/uL Hgb (14.0-18.0) g/dl POC Hgb (14.0-18.0) g/dl Hct (42.0-52.0) % POC Hct (42-52) % MCV (80.0-100.0) fL MCH (25.0-34.0) pg MCHC (32.0-36.0) g/dL RDW Std Deviation (36.4-46.3) fL RDW Coeff of Laoy (11.5-14.5) % Plt Count (130-400) K/uL MPV (9.4-12.4) fL Immature Gran % (Auto) % Neut % (Auto) % Lymph % (Auto) % Desha % (Auto) % Eos % (Auto) % Baso % (Auto) % Reticulocyte % (Auto) (0.50-2.00) % Neut # (Auto) (1.40-6.50) K/uL Lymph # (Auto) (1.20-3.40) K/uL Desha # (Auto) (0.11-0.59) K/uL Eos # (Auto) (0.00-0.50) K/uL Baso # (Auto) (0.00-0.20) K/uL Reticulocyte # (0.020-0.100) 10^6/uL Immature Gran # (Auto) (0.01-0.20) K/uL Absolute Nucleated RBC (0.00-0.12) K/uL Nucleated RBC % (auto) % Polychromasia Anisocytosis Macrocytosis Tear Drop Cells Ovalocytes PT (9.0-12.0) Seconds INR (0.9-1.1) APTT 37 H (21-31) Seconds PTT Ratio 1.4 Fibrinogen (184-400) mg/dl Sample Site POC pH (7.35-7.45) POC pCO2 (35-46) mmHg POC pO2 (80-95) mmHg POC HCO3 (19-24) adelina/L POC Total CO2 (24-31) mmol/L POC Base Excess (-9-1.8) adelina/L ABG pH (Temp Correct) (7.35-7.45) ABG pCO2 (Temp Corrct (35-46) mmHg POC ABG pO2 at Pt Temp POC ABG O2 Sat (90-95) % Stan Test VBG pH (7.36-7.41) VBG pCO2 (38-50) mmHg VBG pO2 mmHg VBG HCO3 mmol/L VBG O2 Saturation % VBG Base Excess mEq/L O2 Delivery Device POC O2 Rate POC FiO2 % Tidal Volume PEEP POC Sodium (135-144) mmol/L Sodium 145 (136-145) mmol/L POC Potassium (3.3-5.0) mmol/L Potassium 3.8 (3.5-5.1) mmol/L Chloride 111 H (98-107) mmol/L Carbon Dioxide 29 (21-32) mmol/L Anion Gap 5 (3-11) BUN 37 H (6-23) mg/dl Creatinine 0.84 (0.6-1.4) mg/dl Est Cr Clr Drug Dosing 66.7 ml/min Est GFR ( Amer) 90.6 ml/min Est GFR (Non-Af Amer) 78.2 ml/min BUN/Creatinine Ratio 44.0 H (10-20) Glucose 139 H (70-99(Fasting)) mg/dl POC Glucose 134 H 125 H (70-99) mg/dl POC Glucose (other) (70-99) mg/dl Lactate (0.4-2.0) mmol/L Calcium 8.1 L (8.6-10.3) mg/dl Phosphorus 2.9 (2.5-4.9) mg/dl Magnesium 2.0 (1.7-2.4) mg/dl Total Bilirubin (0.2-1.0) mg/dl Direct Bilirubin (0-0.2) mg/dl AST (13-39) U/L ALT (7-52) U/L Alkaline Phosphatase (34-104) U/L Ammonia (18-72) umol/L Troponin I High Sens (0-20) pg/ml Total Protein (6.0-8.3) gm/dl Albumin (3.4-5.0) gm/dl Globulin (2.5-4.0) gm/dl Albumin/Globulin Ratio (0.9-2) Procalcitonin (0-0.5) ng/ml TSH (0.300-4.500) uIu/ml Free T4 (0.61-1.60) ng/dl Random Cortisol mcg/dl Urine Color Urine Appearance (Clear) Urine pH (4.5-7.5) Ur Specific Moss (1.000-1.030) Urine Protein (Negative) Urine Glucose (UA) (Negative) Urine Ketones (Negative) Urine Blood (Negative) Urine Nitrite (Negative) Urine Bilirubin (Negative) Urine Urobilinogen (Negative) Ur Leukocyte Esterase (Negative) Urine WBC (Auto) (0-5) /hpf Urine RBC (Auto) (0-2) /hpf U Hyaline Cast (Auto) (0-2) /lpf U Epithel Cells (Auto) (0-2) /hpf Urine Bacteria (Auto) (None Seen) Nasal Screen MRSA (PCR) (Negative) Urine Opiates Screen (Neg) Ur Methadone, Qual (Neg) Urine Fentanyl Screen (Neg) Urine Barbiturates (Neg) Ur Phencyclidine (PCP) (Neg) U Amphetamin/Meth Scrn (Neg) MDMA (Ecstasy) Screen (Neg) U Benzodiazepines Scrn (Neg) Ur Cocaine Metabolite (Neg) U Marijuana (THC) Screen (Neg) Adenovirus (PCR) (NotDetected) B. pertussis DNA (PCR) (NotDetected) B.parapertussis DNA PCR (NotDetected) C. pneumoniae DNA (PCR) (NotDetected) Coronavirus OC43 (PCR) (NotDetected) Coronavirus HKU1 (PCR) (NotDetected) Coronavirus 229E (PCR) (NotDetected) SARS-CoV-2 (PCR) (Negative) Coronavirus NL63 (PCR) (NotDetected) Human Metapneumovir PCR (NotDetected) Influenza Type A (PCR) (Neg) Influenza Type B (PCR) (Neg) M. pneumoniae (PCR) (NotDetected) Parainfluenza 1 (PCR) (NotDetected) Parainfluenza 2 (PCR) (NotDetected) Parainfluenza 3 (PCR) (NotDetected) Parainfluenza 4 (PCR) (NotDetected) RSV (RT-PCR) (Neg) RSV (PCR) (NotDetected) Entero/Rhino (PCR) (NotDetected) Blood Type Antibody Screen 09/15/23 09/15/23 09/15/23 Range/Units 15:48 11:16 04:49 WBC (4.8-10.8) K/ul RBC (4.70-6.10) M/uL Hgb (14.0-18.0) g/dl POC Hgb (14.0-18.0) g/dl Hct (42.0-52.0) % POC Hct (42-52) % MCV (80.0-100.0) fL MCH (25.0-34.0) pg MCHC (32.0-36.0) g/dL RDW Std Deviation (36.4-46.3) fL RDW Coeff of Layo (11.5-14.5) % Plt Count (130-400) K/uL MPV (9.4-12.4) fL Immature Gran % (Auto) % Neut % (Auto) % Lymph % (Auto) % Desha % (Auto) % Eos % (Auto) % Baso % (Auto) % Reticulocyte % (Auto) (0.50-2.00) % Neut # (Auto) (1.40-6.50) K/uL Lymph # (Auto) (1.20-3.40) K/uL Desha # (Auto) (0.11-0.59) K/uL Eos # (Auto) (0.00-0.50) K/uL Baso # (Auto) (0.00-0.20) K/uL Reticulocyte # (0.020-0.100) 10^6/uL Immature Gran # (Auto) (0.01-0.20) K/uL Absolute Nucleated RBC (0.00-0.12) K/uL Nucleated RBC % (auto) % Polychromasia Anisocytosis Macrocytosis Tear Drop Cells Ovalocytes PT (9.0-12.0) Seconds INR (0.9-1.1) APTT (21-31) Seconds PTT Ratio Fibrinogen (184-400) mg/dl Sample Site POC pH (7.35-7.45) POC pCO2 (35-46) mmHg POC pO2 (80-95) mmHg POC HCO3 (19-24) adelina/L POC Total CO2 (24-31) mmol/L POC Base Excess (-9-1.8) adelina/L ABG pH (Temp Correct) (7.35-7.45) ABG pCO2 (Temp Corrct (35-46) mmHg POC ABG pO2 at Pt Temp POC ABG O2 Sat (90-95) % Stan Test VBG pH (7.36-7.41) VBG pCO2 (38-50) mmHg VBG pO2 mmHg VBG HCO3 mmol/L VBG O2 Saturation % VBG Base Excess mEq/L O2 Delivery Device POC O2 Rate POC FiO2 % Tidal Volume PEEP POC Sodium (135-144) mmol/L Sodium (136-145) mmol/L POC Potassium (3.3-5.0) mmol/L Potassium (3.5-5.1) mmol/L Chloride (98-107) mmol/L Carbon Dioxide (21-32) mmol/L Anion Gap (3-11) BUN (6-23) mg/dl Creatinine (0.6-1.4) mg/dl Est Cr Clr Drug Dosing ml/min Est GFR ( Amer) ml/min Est GFR (Non-Af Amer) ml/min BUN/Creatinine Ratio (10-20) Glucose (70-99(Fasting)) mg/dl POC Glucose 121 H 121 H 155 H (70-99) mg/dl POC Glucose (other) (70-99) mg/dl Lactate (0.4-2.0) mmol/L Calcium (8.6-10.3) mg/dl Phosphorus (2.5-4.9) mg/dl Magnesium (1.7-2.4) mg/dl Total Bilirubin (0.2-1.0) mg/dl Direct Bilirubin (0-0.2) mg/dl AST (13-39) U/L ALT (7-52) U/L Alkaline Phosphatase (34-104) U/L Ammonia (18-72) umol/L Troponin I High Sens (0-20) pg/ml Total Protein (6.0-8.3) gm/dl Albumin (3.4-5.0) gm/dl Globulin (2.5-4.0) gm/dl Albumin/Globulin Ratio (0.9-2) Procalcitonin (0-0.5) ng/ml TSH (0.300-4.500) uIu/ml Free T4 (0.61-1.60) ng/dl Random Cortisol mcg/dl Urine Color Urine Appearance (Clear) Urine pH (4.5-7.5) Ur Specific Moss (1.000-1.030) Urine Protein (Negative) Urine Glucose (UA) (Negative) Urine Ketones (Negative) Urine Blood (Negative) Urine Nitrite (Negative) Urine Bilirubin (Negative) Urine Urobilinogen (Negative) Ur Leukocyte Esterase (Negative) Urine WBC (Auto) (0-5) /hpf Urine RBC (Auto) (0-2) /hpf U Hyaline Cast (Auto) (0-2) /lpf U Epithel Cells (Auto) (0-2) /hpf Urine Bacteria (Auto) (None Seen) Nasal Screen MRSA (PCR) (Negative) Urine Opiates Screen (Neg) Ur Methadone, Qual (Neg) Urine Fentanyl Screen (Neg) Urine Barbiturates (Neg) Ur Phencyclidine (PCP) (Neg) U Amphetamin/Meth Scrn (Neg) MDMA (Ecstasy) Screen (Neg) U Benzodiazepines Scrn (Neg) Ur Cocaine Metabolite (Neg) U Marijuana (THC) Screen (Neg) Adenovirus (PCR) (NotDetected) B. pertussis DNA (PCR) (NotDetected) B.parapertussis DNA PCR (NotDetected) C. pneumoniae DNA (PCR) (NotDetected) Coronavirus OC43 (PCR) (NotDetected) Coronavirus HKU1 (PCR) (NotDetected) Coronavirus 229E (PCR) (NotDetected) SARS-CoV-2 (PCR) (Negative) Coronavirus NL63 (PCR) (NotDetected) Human Metapneumovir PCR (NotDetected) Influenza Type A (PCR) (Neg) Influenza Type B (PCR) (Neg) M. pneumoniae (PCR) (NotDetected) Parainfluenza 1 (PCR) (NotDetected) Parainfluenza 2 (PCR) (NotDetected) Parainfluenza 3 (PCR) (NotDetected) Parainfluenza 4 (PCR) (NotDetected) RSV (RT-PCR) (Neg) RSV (PCR) (NotDetected) Entero/Rhino (PCR) (NotDetected) Blood Type Antibody Screen 09/15/23 09/15/23 09/14/23 Range/Units 04:46 04:36 23:53 WBC 7.79 (4.8-10.8) K/ul RBC 3.24 L (4.70-6.10) M/uL Hgb 9.5 L (14.0-18.0) g/dl POC Hgb 10.9 L (14.0-18.0) g/dl Hct 28.4 L (42.0-52.0) % POC Hct 32 L (42-52) % MCV 87.7 (80.0-100.0) fL MCH 29.3 (25.0-34.0) pg MCHC 33.5 (32.0-36.0) g/dL RDW Std Deviation 66.4 H (36.4-46.3) fL RDW Coeff of Layo 21.0 H (11.5-14.5) % Plt Count 102 L (130-400) K/uL MPV 11.9 (9.4-12.4) fL Immature Gran % (Auto) % Neut % (Auto) % Lymph % (Auto) % Desha % (Auto) % Eos % (Auto) % Baso % (Auto) % Reticulocyte % (Auto) (0.50-2.00) % Neut # (Auto) (1.40-6.50) K/uL Lymph # (Auto) (1.20-3.40) K/uL Desha # (Auto) (0.11-0.59) K/uL Eos # (Auto) (0.00-0.50) K/uL Baso # (Auto) (0.00-0.20) K/uL Reticulocyte # (0.020-0.100) 10^6/uL Immature Gran # (Auto) (0.01-0.20) K/uL Absolute Nucleated RBC 0.04 (0.00-0.12) K/uL Nucleated RBC % (auto) 0.5 % Polychromasia Anisocytosis Macrocytosis Tear Drop Cells Ovalocytes PT (9.0-12.0) Seconds INR (0.9-1.1) APTT 39 H (21-31) Seconds PTT Ratio 1.4 Fibrinogen (184-400) mg/dl Sample Site Art Line POC pH 7.43 (7.35-7.45) POC pCO2 38 (35-46) mmHg POC pO2 97 H (80-95) mmHg POC HCO3 25 H (19-24) adelina/L POC Total CO2 26 (24-31) mmol/L POC Base Excess 1.0 (-9-1.8) adelina/L ABG pH (Temp Correct) 7.438 (7.35-7.45) ABG pCO2 (Temp Corrct 37 (35-46) mmHg POC ABG pO2 at Pt Temp 93 POC ABG O2 Sat 98.0 H (90-95) % Stan Test NA VBG pH (7.36-7.41) VBG pCO2 (38-50) mmHg VBG pO2 mmHg VBG HCO3 mmol/L VBG O2 Saturation % VBG Base Excess mEq/L O2 Delivery Device Ventilator POC O2 Rate 14 POC FiO2 35 % Tidal Volume 420 PEEP 5 POC Sodium 146 H (135-144) mmol/L Sodium 143 (136-145) mmol/L POC Potassium 4.1 (3.3-5.0) mmol/L Potassium 4.4 D (3.5-5.1) mmol/L Chloride 113 H (98-107) mmol/L Carbon Dioxide 26 (21-32) mmol/L Anion Gap 4 (3-11) BUN 33 H (6-23) mg/dl Creatinine 0.86 (0.6-1.4) mg/dl Est Cr Clr Drug Dosing 65.2 ml/min Est GFR ( Amer) 89.7 ml/min Est GFR (Non-Af Amer) 77.4 ml/min BUN/Creatinine Ratio 38.4 H (10-20) Glucose 154 H (70-99(Fasting)) mg/dl POC Glucose 199 H (70-99) mg/dl POC Glucose (other) (70-99) mg/dl Lactate (0.4-2.0) mmol/L Calcium 7.8 L (8.6-10.3) mg/dl Phosphorus 2.6 (2.5-4.9) mg/dl Magnesium 2.0 (1.7-2.4) mg/dl Total Bilirubin (0.2-1.0) mg/dl Direct Bilirubin (0-0.2) mg/dl AST (13-39) U/L ALT (7-52) U/L Alkaline Phosphatase (34-104) U/L Ammonia (18-72) umol/L Troponin I High Sens (0-20) pg/ml Total Protein (6.0-8.3) gm/dl Albumin (3.4-5.0) gm/dl Globulin (2.5-4.0) gm/dl Albumin/Globulin Ratio (0.9-2) Procalcitonin (0-0.5) ng/ml TSH (0.300-4.500) uIu/ml Free T4 (0.61-1.60) ng/dl Random Cortisol mcg/dl Urine Color Urine Appearance (Clear) Urine pH (4.5-7.5) Ur Specific Moss (1.000-1.030) Urine Protein (Negative) Urine Glucose (UA) (Negative) Urine Ketones (Negative) Urine Blood (Negative) Urine Nitrite (Negative) Urine Bilirubin (Negative) Urine Urobilinogen (Negative) Ur Leukocyte Esterase (Negative) Urine WBC (Auto) (0-5) /hpf Urine RBC (Auto) (0-2) /hpf U Hyaline Cast (Auto) (0-2) /lpf U Epithel Cells (Auto) (0-2) /hpf Urine Bacteria (Auto) (None Seen) Nasal Screen MRSA (PCR) (Negative) Urine Opiates Screen (Neg) Ur Methadone, Qual (Neg) Urine Fentanyl Screen (Neg) Urine Barbiturates (Neg) Ur Phencyclidine (PCP) (Neg) U Amphetamin/Meth Scrn (Neg) MDMA (Ecstasy) Screen (Neg) U Benzodiazepines Scrn (Neg) Ur Cocaine Metabolite (Neg) U Marijuana (THC) Screen (Neg) Adenovirus (PCR) (NotDetected) B. pertussis DNA (PCR) (NotDetected) B.parapertussis DNA PCR (NotDetected) C. pneumoniae DNA (PCR) (NotDetected) Coronavirus OC43 (PCR) (NotDetected) Coronavirus HKU1 (PCR) (NotDetected) Coronavirus 229E (PCR) (NotDetected) SARS-CoV-2 (PCR) (Negative) Coronavirus NL63 (PCR) (NotDetected) Human Metapneumovir PCR (NotDetected) Influenza Type A (PCR) (Neg) Influenza Type B (PCR) (Neg) M. pneumoniae (PCR) (NotDetected) Parainfluenza 1 (PCR) (NotDetected) Parainfluenza 2 (PCR) (NotDetected) Parainfluenza 3 (PCR) (NotDetected) Parainfluenza 4 (PCR) (NotDetected) RSV (RT-PCR) (Neg) RSV (PCR) (NotDetected) Entero/Rhino (PCR) (NotDetected) Blood Type Antibody Screen 09/14/23 09/14/23 09/14/23 Range/Units 21:54 18:28 11:37 WBC (4.8-10.8) K/ul RBC (4.70-6.10) M/uL Hgb (14.0-18.0) g/dl POC Hgb (14.0-18.0) g/dl Hct (42.0-52.0) % POC Hct (42-52) % MCV (80.0-100.0) fL MCH (25.0-34.0) pg MCHC (32.0-36.0) g/dL RDW Std Deviation (36.4-46.3) fL RDW Coeff of Layo (11.5-14.5) % Plt Count (130-400) K/uL MPV (9.4-12.4) fL Immature Gran % (Auto) % Neut % (Auto) % Lymph % (Auto) % Desha % (Auto) % Eos % (Auto) % Baso % (Auto) % Reticulocyte % (Auto) (0.50-2.00) % Neut # (Auto) (1.40-6.50) K/uL Lymph # (Auto) (1.20-3.40) K/uL Desha # (Auto) (0.11-0.59) K/uL Eos # (Auto) (0.00-0.50) K/uL Baso # (Auto) (0.00-0.20) K/uL Reticulocyte # (0.020-0.100) 10^6/uL Immature Gran # (Auto) (0.01-0.20) K/uL Absolute Nucleated RBC (0.00-0.12) K/uL Nucleated RBC % (auto) % Polychromasia Anisocytosis Macrocytosis Tear Drop Cells Ovalocytes PT (9.0-12.0) Seconds INR (0.9-1.1) APTT (21-31) Seconds PTT Ratio Fibrinogen (184-400) mg/dl Sample Site POC pH (7.35-7.45) POC pCO2 (35-46) mmHg POC pO2 (80-95) mmHg POC HCO3 (19-24) adelina/L POC Total CO2 (24-31) mmol/L POC Base Excess (-9-1.8) adelina/L ABG pH (Temp Correct) (7.35-7.45) ABG pCO2 (Temp Corrct (35-46) mmHg POC ABG pO2 at Pt Temp POC ABG O2 Sat (90-95) % Stan Test VBG pH (7.36-7.41) VBG pCO2 (38-50) mmHg VBG pO2 mmHg VBG HCO3 mmol/L VBG O2 Saturation % VBG Base Excess mEq/L O2 Delivery Device POC O2 Rate POC FiO2 % Tidal Volume PEEP POC Sodium (135-144) mmol/L Sodium 142 (136-145) mmol/L POC Potassium (3.3-5.0) mmol/L Potassium 3.4 L (3.5-5.1) mmol/L Chloride 112 H (98-107) mmol/L Carbon Dioxide 27 (21-32) mmol/L Anion Gap 3 (3-11) BUN 34 H (6-23) mg/dl Creatinine 0.89 (0.6-1.4) mg/dl Est Cr Clr Drug Dosing 63.0 ml/min Est GFR ( Amer) 88.5 ml/min Est GFR (Non-Af Amer) 76.3 ml/min BUN/Creatinine Ratio 38.2 H (10-20) Glucose 159 H (70-99(Fasting)) mg/dl POC Glucose (70-99) mg/dl POC Glucose (other) 153 H 181 H (70-99) mg/dl Lactate (0.4-2.0) mmol/L Calcium 7.8 L (8.6-10.3) mg/dl Phosphorus 2.1 L (2.5-4.9) mg/dl Magnesium 2.1 (1.7-2.4) mg/dl Total Bilirubin (0.2-1.0) mg/dl Direct Bilirubin (0-0.2) mg/dl AST (13-39) U/L ALT (7-52) U/L Alkaline Phosphatase (34-104) U/L Ammonia (18-72) umol/L Troponin I High Sens (0-20) pg/ml Total Protein (6.0-8.3) gm/dl Albumin (3.4-5.0) gm/dl Globulin (2.5-4.0) gm/dl Albumin/Globulin Ratio (0.9-2) Procalcitonin (0-0.5) ng/ml TSH (0.300-4.500) uIu/ml Free T4 (0.61-1.60) ng/dl Random Cortisol mcg/dl Urine Color Urine Appearance (Clear) Urine pH (4.5-7.5) Ur Specific Moss (1.000-1.030) Urine Protein (Negative) Urine Glucose (UA) (Negative) Urine Ketones (Negative) Urine Blood (Negative) Urine Nitrite (Negative) Urine Bilirubin (Negative) Urine Urobilinogen (Negative) Ur Leukocyte Esterase (Negative) Urine WBC (Auto) (0-5) /hpf Urine RBC (Auto) (0-2) /hpf U Hyaline Cast (Auto) (0-2) /lpf U Epithel Cells (Auto) (0-2) /hpf Urine Bacteria (Auto) (None Seen) Nasal Screen MRSA (PCR) (Negative) Urine Opiates Screen (Neg) Ur Methadone, Qual (Neg) Urine Fentanyl Screen (Neg) Urine Barbiturates (Neg) Ur Phencyclidine (PCP) (Neg) U Amphetamin/Meth Scrn (Neg) MDMA (Ecstasy) Screen (Neg) U Benzodiazepines Scrn (Neg) Ur Cocaine Metabolite (Neg) U Marijuana (THC) Screen (Neg) Adenovirus (PCR) (NotDetected) B. pertussis DNA (PCR) (NotDetected) B.parapertussis DNA PCR (NotDetected) C. pneumoniae DNA (PCR) (NotDetected) Coronavirus OC43 (PCR) (NotDetected) Coronavirus HKU1 (PCR) (NotDetected) Coronavirus 229E (PCR) (NotDetected) SARS-CoV-2 (PCR) (Negative) Coronavirus NL63 (PCR) (NotDetected) Human Metapneumovir PCR (NotDetected) Influenza Type A (PCR) (Neg) Influenza Type B (PCR) (Neg) M. pneumoniae (PCR) (NotDetected) Parainfluenza 1 (PCR) (NotDetected) Parainfluenza 2 (PCR) (NotDetected) Parainfluenza 3 (PCR) (NotDetected) Parainfluenza 4 (PCR) (NotDetected) RSV (RT-PCR) (Neg) RSV (PCR) (NotDetected) Entero/Rhino (PCR) (NotDetected) Blood Type Antibody Screen 09/14/23 09/14/23 09/14/23 Range/Units 06:19 04:38 00:17 WBC 8.78 (4.8-10.8) K/ul RBC 3.27 L (4.70-6.10) M/uL Hgb 9.4 L (14.0-18.0) g/dl POC Hgb (14.0-18.0) g/dl Hct 29.3 L (42.0-52.0) % POC Hct (42-52) % MCV 89.6 (80.0-100.0) fL MCH 28.7 (25.0-34.0) pg MCHC 32.1 (32.0-36.0) g/dL RDW Std Deviation 67.8 H (36.4-46.3) fL RDW Coeff of Layo 21.3 H (11.5-14.5) % Plt Count 96 L (130-400) K/uL MPV 12.0 (9.4-12.4) fL Immature Gran % (Auto) 1.0 % Neut % (Auto) 82.9 % Lymph % (Auto) 8.7 % Desha % (Auto) 7.3 % Eos % (Auto) 0.0 % Baso % (Auto) 0.1 % Reticulocyte % (Auto) (0.50-2.00) % Neut # (Auto) 7.28 H (1.40-6.50) K/uL Lymph # (Auto) 0.76 L (1.20-3.40) K/uL Desha # (Auto) 0.64 H (0.11-0.59) K/uL Eos # (Auto) 0.00 (0.00-0.50) K/uL Baso # (Auto) 0.01 (0.00-0.20) K/uL Reticulocyte # (0.020-0.100) 10^6/uL Immature Gran # (Auto) 0.09 (0.01-0.20) K/uL Absolute Nucleated RBC 0.04 (0.00-0.12) K/uL Nucleated RBC % (auto) 0.5 % Polychromasia 1+ Anisocytosis Present Macrocytosis Tear Drop Cells Ovalocytes 1+ PT 15.8 H (9.0-12.0) Seconds INR 1.5 H (0.9-1.1) APTT (21-31) Seconds PTT Ratio Fibrinogen (184-400) mg/dl Sample Site POC pH (7.35-7.45) POC pCO2 (35-46) mmHg POC pO2 (80-95) mmHg POC HCO3 (19-24) adelina/L POC Total CO2 (24-31) mmol/L POC Base Excess (-9-1.8) adelina/L ABG pH (Temp Correct) (7.35-7.45) ABG pCO2 (Temp Corrct (35-46) mmHg POC ABG pO2 at Pt Temp POC ABG O2 Sat (90-95) % Stan Test VBG pH (7.36-7.41) VBG pCO2 (38-50) mmHg VBG pO2 mmHg VBG HCO3 mmol/L VBG O2 Saturation % VBG Base Excess mEq/L O2 Delivery Device POC O2 Rate POC FiO2 % Tidal Volume PEEP POC Sodium (135-144) mmol/L Sodium 141 (136-145) mmol/L POC Potassium (3.3-5.0) mmol/L Potassium 3.4 L (3.5-5.1) mmol/L Chloride 111 H (98-107) mmol/L Carbon Dioxide 25 (21-32) mmol/L Anion Gap 5 (3-11) BUN 36 H (6-23) mg/dl Creatinine 1.01 (0.6-1.4) mg/dl Est Cr Clr Drug Dosing 55.5 ml/min Est GFR ( Amer) 76.6 ml/min Est GFR (Non-Af Amer) 66.1 ml/min BUN/Creatinine Ratio 35.6 H (10-20) Glucose 177 H (70-99(Fasting)) mg/dl POC Glucose (70-99) mg/dl POC Glucose (other) 183 H 175 H (70-99) mg/dl Lactate (0.4-2.0) mmol/L Calcium 8.0 L (8.6-10.3) mg/dl Phosphorus 2.3 L (2.5-4.9) mg/dl Magnesium 2.0 (1.7-2.4) mg/dl Total Bilirubin 1.2 H (0.2-1.0) mg/dl Direct Bilirubin (0-0.2) mg/dl AST 95 H (13-39) U/L ALT 66 H (7-52) U/L Alkaline Phosphatase 80 (34-104) U/L Ammonia (18-72) umol/L Troponin I High Sens (0-20) pg/ml Total Protein 5.4 L (6.0-8.3) gm/dl Albumin 2.4 L (3.4-5.0) gm/dl Globulin 3.0 (2.5-4.0) gm/dl Albumin/Globulin Ratio 0.8 L (0.9-2) Procalcitonin (0-0.5) ng/ml TSH (0.300-4.500) uIu/ml Free T4 (0.61-1.60) ng/dl Random Cortisol mcg/dl Urine Color Urine Appearance (Clear) Urine pH (4.5-7.5) Ur Specific Moss (1.000-1.030) Urine Protein (Negative) Urine Glucose (UA) (Negative) Urine Ketones (Negative) Urine Blood (Negative) Urine Nitrite (Negative) Urine Bilirubin (Negative) Urine Urobilinogen (Negative) Ur Leukocyte Esterase (Negative) Urine WBC (Auto) (0-5) /hpf Urine RBC (Auto) (0-2) /hpf U Hyaline Cast (Auto) (0-2) /lpf U Epithel Cells (Auto) (0-2) /hpf Urine Bacteria (Auto) (None Seen) Nasal Screen MRSA (PCR) (Negative) Urine Opiates Screen (Neg) Ur Methadone, Qual (Neg) Urine Fentanyl Screen (Neg) Urine Barbiturates (Neg) Ur Phencyclidine (PCP) (Neg) U Amphetamin/Meth Scrn (Neg) MDMA (Ecstasy) Screen (Neg) U Benzodiazepines Scrn (Neg) Ur Cocaine Metabolite (Neg) U Marijuana (THC) Screen (Neg) Adenovirus (PCR) (NotDetected) B. pertussis DNA (PCR) (NotDetected) B.parapertussis DNA PCR (NotDetected) C. pneumoniae DNA (PCR) (NotDetected) Coronavirus OC43 (PCR) (NotDetected) Coronavirus HKU1 (PCR) (NotDetected) Coronavirus 229E (PCR) (NotDetected) SARS-CoV-2 (PCR) (Negative) Coronavirus NL63 (PCR) (NotDetected) Human Metapneumovir PCR (NotDetected) Influenza Type A (PCR) (Neg) Influenza Type B (PCR) (Neg) M. pneumoniae (PCR) (NotDetected) Parainfluenza 1 (PCR) (NotDetected) Parainfluenza 2 (PCR) (NotDetected) Parainfluenza 3 (PCR) (NotDetected) Parainfluenza 4 (PCR) (NotDetected) RSV (RT-PCR) (Neg) RSV (PCR) (NotDetected) Entero/Rhino (PCR) (NotDetected) Blood Type Antibody Screen 09/13/23 09/13/23 09/13/23 Range/Units 18:23 12:28 06:22 WBC (4.8-10.8) K/ul RBC (4.70-6.10) M/uL Hgb (14.0-18.0) g/dl POC Hgb (14.0-18.0) g/dl Hct (42.0-52.0) % POC Hct (42-52) % MCV (80.0-100.0) fL MCH (25.0-34.0) pg MCHC (32.0-36.0) g/dL RDW Std Deviation (36.4-46.3) fL RDW Coeff of Layo (11.5-14.5) % Plt Count (130-400) K/uL MPV (9.4-12.4) fL Immature Gran % (Auto) % Neut % (Auto) % Lymph % (Auto) % Desha % (Auto) % Eos % (Auto) % Baso % (Auto) % Reticulocyte % (Auto) (0.50-2.00) % Neut # (Auto) (1.40-6.50) K/uL Lymph # (Auto) (1.20-3.40) K/uL Desha # (Auto) (0.11-0.59) K/uL Eos # (Auto) (0.00-0.50) K/uL Baso # (Auto) (0.00-0.20) K/uL Reticulocyte # (0.020-0.100) 10^6/uL Immature Gran # (Auto) (0.01-0.20) K/uL Absolute Nucleated RBC (0.00-0.12) K/uL Nucleated RBC % (auto) % Polychromasia Anisocytosis Macrocytosis Tear Drop Cells Ovalocytes PT (9.0-12.0) Seconds INR (0.9-1.1) APTT (21-31) Seconds PTT Ratio Fibrinogen (184-400) mg/dl Sample Site POC pH (7.35-7.45) POC pCO2 (35-46) mmHg POC pO2 (80-95) mmHg POC HCO3 (19-24) adelina/L POC Total CO2 (24-31) mmol/L POC Base Excess (-9-1.8) adelina/L ABG pH (Temp Correct) (7.35-7.45) ABG pCO2 (Temp Corrct (35-46) mmHg POC ABG pO2 at Pt Temp POC ABG O2 Sat (90-95) % Stan Test VBG pH (7.36-7.41) VBG pCO2 (38-50) mmHg VBG pO2 mmHg VBG HCO3 mmol/L VBG O2 Saturation % VBG Base Excess mEq/L O2 Delivery Device POC O2 Rate POC FiO2 % Tidal Volume PEEP POC Sodium (135-144) mmol/L Sodium (136-145) mmol/L POC Potassium (3.3-5.0) mmol/L Potassium (3.5-5.1) mmol/L Chloride (98-107) mmol/L Carbon Dioxide (21-32) mmol/L Anion Gap (3-11) BUN (6-23) mg/dl Creatinine (0.6-1.4) mg/dl Est Cr Clr Drug Dosing ml/min Est GFR ( Amer) ml/min Est GFR (Non-Af Amer) ml/min BUN/Creatinine Ratio (10-20) Glucose (70-99(Fasting)) mg/dl POC Glucose (70-99) mg/dl POC Glucose (other) 169 H 159 H 151 H (70-99) mg/dl Lactate (0.4-2.0) mmol/L Calcium (8.6-10.3) mg/dl Phosphorus (2.5-4.9) mg/dl Magnesium (1.7-2.4) mg/dl Total Bilirubin (0.2-1.0) mg/dl Direct Bilirubin (0-0.2) mg/dl AST (13-39) U/L ALT (7-52) U/L Alkaline Phosphatase (34-104) U/L Ammonia (18-72) umol/L Troponin I High Sens (0-20) pg/ml Total Protein (6.0-8.3) gm/dl Albumin (3.4-5.0) gm/dl Globulin (2.5-4.0) gm/dl Albumin/Globulin Ratio (0.9-2) Procalcitonin (0-0.5) ng/ml TSH (0.300-4.500) uIu/ml Free T4 (0.61-1.60) ng/dl Random Cortisol mcg/dl Urine Color Urine Appearance (Clear) Urine pH (4.5-7.5) Ur Specific Moss (1.000-1.030) Urine Protein (Negative) Urine Glucose (UA) (Negative) Urine Ketones (Negative) Urine Blood (Negative) Urine Nitrite (Negative) Urine Bilirubin (Negative) Urine Urobilinogen (Negative) Ur Leukocyte Esterase (Negative) Urine WBC (Auto) (0-5) /hpf Urine RBC (Auto) (0-2) /hpf U Hyaline Cast (Auto) (0-2) /lpf U Epithel Cells (Auto) (0-2) /hpf Urine Bacteria (Auto) (None Seen) Nasal Screen MRSA (PCR) (Negative) Urine Opiates Screen (Neg) Ur Methadone, Qual (Neg) Urine Fentanyl Screen (Neg) Urine Barbiturates (Neg) Ur Phencyclidine (PCP) (Neg) U Amphetamin/Meth Scrn (Neg) MDMA (Ecstasy) Screen (Neg) U Benzodiazepines Scrn (Neg) Ur Cocaine Metabolite (Neg) U Marijuana (THC) Screen (Neg) Adenovirus (PCR) (NotDetected) B. pertussis DNA (PCR) (NotDetected) B.parapertussis DNA PCR (NotDetected) C. pneumoniae DNA (PCR) (NotDetected) Coronavirus OC43 (PCR) (NotDetected) Coronavirus HKU1 (PCR) (NotDetected) Coronavirus 229E (PCR) (NotDetected) SARS-CoV-2 (PCR) (Negative) Coronavirus NL63 (PCR) (NotDetected) Human Metapneumovir PCR (NotDetected) Influenza Type A (PCR) (Neg) Influenza Type B (PCR) (Neg) M. pneumoniae (PCR) (NotDetected) Parainfluenza 1 (PCR) (NotDetected) Parainfluenza 2 (PCR) (NotDetected) Parainfluenza 3 (PCR) (NotDetected) Parainfluenza 4 (PCR) (NotDetected) RSV (RT-PCR) (Neg) RSV (PCR) (NotDetected) Entero/Rhino (PCR) (NotDetected) Blood Type Antibody Screen 09/13/23 09/13/23 09/13/23 Range/Units 04:45 04:30 00:18 WBC 8.77 (4.8-10.8) K/ul RBC 3.31 L (4.70-6.10) M/uL Hgb 9.6 L (14.0-18.0) g/dl POC Hgb 10.5 L (14.0-18.0) g/dl Hct 30.2 L (42.0-52.0) % POC Hct 31 L (42-52) % MCV 91.2 (80.0-100.0) fL MCH 29.0 (25.0-34.0) pg MCHC 31.8 L (32.0-36.0) g/dL RDW Std Deviation 70.4 H (36.4-46.3) fL RDW Coeff of Layo 21.5 H (11.5-14.5) % Plt Count 105 L (130-400) K/uL MPV 11.1 (9.4-12.4) fL Immature Gran % (Auto) 1.3 % Neut % (Auto) 80.0 % Lymph % (Auto) 8.6 % Desha % (Auto) 9.9 % Eos % (Auto) 0.0 % Baso % (Auto) 0.2 % Reticulocyte % (Auto) (0.50-2.00) % Neut # (Auto) 7.02 H (1.40-6.50) K/uL Lymph # (Auto) 0.75 L (1.20-3.40) K/uL Desha # (Auto) 0.87 H (0.11-0.59) K/uL Eos # (Auto) 0.00 (0.00-0.50) K/uL Baso # (Auto) 0.02 (0.00-0.20) K/uL Reticulocyte # (0.020-0.100) 10^6/uL Immature Gran # (Auto) 0.11 (0.01-0.20) K/uL Absolute Nucleated RBC 0.05 (0.00-0.12) K/uL Nucleated RBC % (auto) 0.6 % Polychromasia 1+ Anisocytosis Present Macrocytosis Tear Drop Cells Ovalocytes 1+ PT 16.1 H (9.0-12.0) Seconds INR 1.5 H (0.9-1.1) APTT (21-31) Seconds PTT Ratio Fibrinogen (184-400) mg/dl Sample Site Art Line POC pH 7.39 (7.35-7.45) POC pCO2 34 L (35-46) mmHg POC pO2 83 (80-95) mmHg POC HCO3 21 (19-24) adelina/L POC Total CO2 22 L (24-31) mmol/L POC Base Excess -4.0 (-9-1.8) adelina/L ABG pH (Temp Correct) 7.379 (7.35-7.45) ABG pCO2 (Temp Corrct 35 (35-46) mmHg POC ABG pO2 at Pt Temp 89 POC ABG O2 Sat 96.0 H (90-95) % Stan Test NA VBG pH (7.36-7.41) VBG pCO2 (38-50) mmHg VBG pO2 mmHg VBG HCO3 mmol/L VBG O2 Saturation % VBG Base Excess mEq/L O2 Delivery Device Ventilator POC O2 Rate POC FiO2 35 % Tidal Volume PEEP 5 POC Sodium 144 (135-144) mmol/L Sodium 142 (136-145) mmol/L POC Potassium 3.9 (3.3-5.0) mmol/L Potassium 4.1 (3.5-5.1) mmol/L Chloride 114 H (98-107) mmol/L Carbon Dioxide 21 (21-32) mmol/L Anion Gap 7 (3-11) BUN 39 H (6-23) mg/dl Creatinine 1.14 (0.6-1.4) mg/dl Est Cr Clr Drug Dosing 49.2 ml/min Est GFR ( Amer) 66.2 ml/min Est GFR (Non-Af Amer) 57.1 ml/min BUN/Creatinine Ratio 34.2 H (10-20) Glucose 150 H (70-99(Fasting)) mg/dl POC Glucose (70-99) mg/dl POC Glucose (other) 155 H (70-99) mg/dl Lactate (0.4-2.0) mmol/L Calcium 8.3 L (8.6-10.3) mg/dl Phosphorus 2.4 L D (2.5-4.9) mg/dl Magnesium 1.9 (1.7-2.4) mg/dl Total Bilirubin 1.4 H (0.2-1.0) mg/dl Direct Bilirubin (0-0.2) mg/dl AST 78 H (13-39) U/L ALT 47 (7-52) U/L Alkaline Phosphatase 87 (34-104) U/L Ammonia (18-72) umol/L Troponin I High Sens (0-20) pg/ml Total Protein 5.8 L (6.0-8.3) gm/dl Albumin 2.5 L (3.4-5.0) gm/dl Globulin 3.3 (2.5-4.0) gm/dl Albumin/Globulin Ratio 0.8 L (0.9-2) Procalcitonin (0-0.5) ng/ml TSH (0.300-4.500) uIu/ml Free T4 (0.61-1.60) ng/dl Random Cortisol mcg/dl Urine Color Urine Appearance (Clear) Urine pH (4.5-7.5) Ur Specific Moss (1.000-1.030) Urine Protein (Negative) Urine Glucose (UA) (Negative) Urine Ketones (Negative) Urine Blood (Negative) Urine Nitrite (Negative) Urine Bilirubin (Negative) Urine Urobilinogen (Negative) Ur Leukocyte Esterase (Negative) Urine WBC (Auto) (0-5) /hpf Urine RBC (Auto) (0-2) /hpf U Hyaline Cast (Auto) (0-2) /lpf U Epithel Cells (Auto) (0-2) /hpf Urine Bacteria (Auto) (None Seen) Nasal Screen MRSA (PCR) (Negative) Urine Opiates Screen (Neg) Ur Methadone, Qual (Neg) Urine Fentanyl Screen (Neg) Urine Barbiturates (Neg) Ur Phencyclidine (PCP) (Neg) U Amphetamin/Meth Scrn (Neg) MDMA (Ecstasy) Screen (Neg) U Benzodiazepines Scrn (Neg) Ur Cocaine Metabolite (Neg) U Marijuana (THC) Screen (Neg) Adenovirus (PCR) (NotDetected) B. pertussis DNA (PCR) (NotDetected) B.parapertussis DNA PCR (NotDetected) C. pneumoniae DNA (PCR) (NotDetected) Coronavirus OC43 (PCR) (NotDetected) Coronavirus HKU1 (PCR) (NotDetected) Coronavirus 229E (PCR) (NotDetected) SARS-CoV-2 (PCR) (Negative) Coronavirus NL63 (PCR) (NotDetected) Human Metapneumovir PCR (NotDetected) Influenza Type A (PCR) (Neg) Influenza Type B (PCR) (Neg) M. pneumoniae (PCR) (NotDetected) Parainfluenza 1 (PCR) (NotDetected) Parainfluenza 2 (PCR) (NotDetected) Parainfluenza 3 (PCR) (NotDetected) Parainfluenza 4 (PCR) (NotDetected) RSV (RT-PCR) (Neg) RSV (PCR) (NotDetected) Entero/Rhino (PCR) (NotDetected) Blood Type Antibody Screen 09/12/23 09/12/23 09/12/23 Range/Units 17:14 14:19 13:34 WBC (4.8-10.8) K/ul RBC (4.70-6.10) M/uL Hgb (14.0-18.0) g/dl POC Hgb (14.0-18.0) g/dl Hct (42.0-52.0) % POC Hct (42-52) % MCV (80.0-100.0) fL MCH (25.0-34.0) pg MCHC (32.0-36.0) g/dL RDW Std Deviation (36.4-46.3) fL RDW Coeff of Layo (11.5-14.5) % Plt Count (130-400) K/uL MPV (9.4-12.4) fL Immature Gran % (Auto) % Neut % (Auto) % Lymph % (Auto) % Desha % (Auto) % Eos % (Auto) % Baso % (Auto) % Reticulocyte % (Auto) (0.50-2.00) % Neut # (Auto) (1.40-6.50) K/uL Lymph # (Auto) (1.20-3.40) K/uL Desha # (Auto) (0.11-0.59) K/uL Eos # (Auto) (0.00-0.50) K/uL Baso # (Auto) (0.00-0.20) K/uL Reticulocyte # (0.020-0.100) 10^6/uL Immature Gran # (Auto) (0.01-0.20) K/uL Absolute Nucleated RBC (0.00-0.12) K/uL Nucleated RBC % (auto) % Polychromasia Anisocytosis Macrocytosis Tear Drop Cells Ovalocytes PT (9.0-12.0) Seconds INR (0.9-1.1) APTT (21-31) Seconds PTT Ratio Fibrinogen (184-400) mg/dl Sample Site POC pH (7.35-7.45) POC pCO2 (35-46) mmHg POC pO2 (80-95) mmHg POC HCO3 (19-24) adelina/L POC Total CO2 (24-31) mmol/L POC Base Excess (-9-1.8) adelina/L ABG pH (Temp Correct) (7.35-7.45) ABG pCO2 (Temp Corrct (35-46) mmHg POC ABG pO2 at Pt Temp POC ABG O2 Sat (90-95) % Stan Test VBG pH (7.36-7.41) VBG pCO2 (38-50) mmHg VBG pO2 mmHg VBG HCO3 mmol/L VBG O2 Saturation % VBG Base Excess mEq/L O2 Delivery Device POC O2 Rate POC FiO2 % Tidal Volume PEEP POC Sodium (135-144) mmol/L Sodium (136-145) mmol/L POC Potassium (3.3-5.0) mmol/L Potassium (3.5-5.1) mmol/L Chloride (98-107) mmol/L Carbon Dioxide (21-32) mmol/L Anion Gap (3-11) BUN (6-23) mg/dl Creatinine (0.6-1.4) mg/dl Est Cr Clr Drug Dosing ml/min Est GFR ( Amer) ml/min Est GFR (Non-Af Amer) ml/min BUN/Creatinine Ratio (10-20) Glucose (70-99(Fasting)) mg/dl POC Glucose (70-99) mg/dl POC Glucose (other) 131 H 153 H 66 L* (70-99) mg/dl Lactate (0.4-2.0) mmol/L Calcium (8.6-10.3) mg/dl Phosphorus (2.5-4.9) mg/dl Magnesium (1.7-2.4) mg/dl Total Bilirubin (0.2-1.0) mg/dl Direct Bilirubin (0-0.2) mg/dl AST (13-39) U/L ALT (7-52) U/L Alkaline Phosphatase (34-104) U/L Ammonia (18-72) umol/L Troponin I High Sens (0-20) pg/ml Total Protein (6.0-8.3) gm/dl Albumin (3.4-5.0) gm/dl Globulin (2.5-4.0) gm/dl Albumin/Globulin Ratio (0.9-2) Procalcitonin (0-0.5) ng/ml TSH (0.300-4.500) uIu/ml Free T4 (0.61-1.60) ng/dl Random Cortisol mcg/dl Urine Color Urine Appearance (Clear) Urine pH (4.5-7.5) Ur Specific Moss (1.000-1.030) Urine Protein (Negative) Urine Glucose (UA) (Negative) Urine Ketones (Negative) Urine Blood (Negative) Urine Nitrite (Negative) Urine Bilirubin (Negative) Urine Urobilinogen (Negative) Ur Leukocyte Esterase (Negative) Urine WBC (Auto) (0-5) /hpf Urine RBC (Auto) (0-2) /hpf U Hyaline Cast (Auto) (0-2) /lpf U Epithel Cells (Auto) (0-2) /hpf Urine Bacteria (Auto) (None Seen) Nasal Screen MRSA (PCR) (Negative) Urine Opiates Screen (Neg) Ur Methadone, Qual (Neg) Urine Fentanyl Screen (Neg) Urine Barbiturates (Neg) Ur Phencyclidine (PCP) (Neg) U Amphetamin/Meth Scrn (Neg) MDMA (Ecstasy) Screen (Neg) U Benzodiazepines Scrn (Neg) Ur Cocaine Metabolite (Neg) U Marijuana (THC) Screen (Neg) Adenovirus (PCR) (NotDetected) B. pertussis DNA (PCR) (NotDetected) B.parapertussis DNA PCR (NotDetected) C. pneumoniae DNA (PCR) (NotDetected) Coronavirus OC43 (PCR) (NotDetected) Coronavirus HKU1 (PCR) (NotDetected) Coronavirus 229E (PCR) (NotDetected) SARS-CoV-2 (PCR) (Negative) Coronavirus NL63 (PCR) (NotDetected) Human Metapneumovir PCR (NotDetected) Influenza Type A (PCR) (Neg) Influenza Type B (PCR) (Neg) M. pneumoniae (PCR) (NotDetected) Parainfluenza 1 (PCR) (NotDetected) Parainfluenza 2 (PCR) (NotDetected) Parainfluenza 3 (PCR) (NotDetected) Parainfluenza 4 (PCR) (NotDetected) RSV (RT-PCR) (Neg) RSV (PCR) (NotDetected) Entero/Rhino (PCR) (NotDetected) Blood Type Antibody Screen 09/12/23 09/12/23 09/12/23 Range/Units 05:52 05:20 04:29 WBC 6.91 (4.8-10.8) K/ul RBC 3.45 L (4.70-6.10) M/uL Hgb 10.1 L (14.0-18.0) g/dl POC Hgb 10.5 L (14.0-18.0) g/dl Hct 31.6 L (42.0-52.0) % POC Hct 31 L (42-52) % MCV 91.6 (80.0-100.0) fL MCH 29.3 (25.0-34.0) pg MCHC 32.0 (32.0-36.0) g/dL RDW Std Deviation 69.4 H (36.4-46.3) fL RDW Coeff of Layo 21.3 H (11.5-14.5) % Plt Count 129 L (130-400) K/uL MPV 11.7 (9.4-12.4) fL Immature Gran % (Auto) 0.9 % Neut % (Auto) 59.3 % Lymph % (Auto) 25.5 % Desha % (Auto) 13.6 % Eos % (Auto) 0.1 % Baso % (Auto) 0.6 % Reticulocyte % (Auto) (0.50-2.00) % Neut # (Auto) 4.10 (1.40-6.50) K/uL Lymph # (Auto) 1.76 (1.20-3.40) K/uL Desha # (Auto) 0.94 H (0.11-0.59) K/uL Eos # (Auto) 0.01 (0.00-0.50) K/uL Baso # (Auto) 0.04 (0.00-0.20) K/uL Reticulocyte # (0.020-0.100) 10^6/uL Immature Gran # (Auto) 0.06 (0.01-0.20) K/uL Absolute Nucleated RBC 0.10 (0.00-0.12) K/uL Nucleated RBC % (auto) 1.4 % Polychromasia 1+ Anisocytosis Present Macrocytosis Present Tear Drop Cells Ovalocytes PT 14.5 H (9.0-12.0) Seconds INR 1.4 H (0.9-1.1) APTT (21-31) Seconds PTT Ratio Fibrinogen (184-400) mg/dl Sample Site Art Line POC pH 7.39 (7.35-7.45) POC pCO2 36 (35-46) mmHg POC pO2 68 L (80-95) mmHg POC HCO3 22 (19-24) adelina/L POC Total CO2 23 L (24-31) mmol/L POC Base Excess -3.0 (-9-1.8) adelina/L ABG pH (Temp Correct) 7.384 (7.35-7.45) ABG pCO2 (Temp Corrct 36 (35-46) mmHg POC ABG pO2 at Pt Temp 69 POC ABG O2 Sat 93.0 (90-95) % Stan Test Pass VBG pH (7.36-7.41) VBG pCO2 (38-50) mmHg VBG pO2 mmHg VBG HCO3 mmol/L VBG O2 Saturation % VBG Base Excess mEq/L O2 Delivery Device POC O2 Rate POC FiO2 % Tidal Volume PEEP POC Sodium 145 H (135-144) mmol/L Sodium 143 (136-145) mmol/L POC Potassium 4.2 (3.3-5.0) mmol/L Potassium 4.3 (3.5-5.1) mmol/L Chloride 114 H (98-107) mmol/L Carbon Dioxide 22 (21-32) mmol/L Anion Gap 7 (3-11) BUN 43 H (6-23) mg/dl Creatinine 1.04 (0.6-1.4) mg/dl Est Cr Clr Drug Dosing 48.6 ml/min Est GFR ( Amer) 74.0 ml/min Est GFR (Non-Af Amer) 63.8 ml/min BUN/Creatinine Ratio 41.3 H (10-20) Glucose 124 H (70-99(Fasting)) mg/dl POC Glucose (70-99) mg/dl POC Glucose (other) 116 H (70-99) mg/dl Lactate (0.4-2.0) mmol/L Calcium 8.1 L (8.6-10.3) mg/dl Phosphorus 3.8 (2.5-4.9) mg/dl Magnesium 2.0 (1.7-2.4) mg/dl Total Bilirubin 1.0 (0.2-1.0) mg/dl Direct Bilirubin (0-0.2) mg/dl AST 35 (13-39) U/L ALT 24 (7-52) U/L Alkaline Phosphatase 79 (34-104) U/L Ammonia (18-72) umol/L Troponin I High Sens (0-20) pg/ml Total Protein 5.9 L (6.0-8.3) gm/dl Albumin 2.5 L (3.4-5.0) gm/dl Globulin 3.4 (2.5-4.0) gm/dl Albumin/Globulin Ratio 0.7 L (0.9-2) Procalcitonin (0-0.5) ng/ml TSH (0.300-4.500) uIu/ml Free T4 (0.61-1.60) ng/dl Random Cortisol mcg/dl Urine Color Urine Appearance (Clear) Urine pH (4.5-7.5) Ur Specific Moss (1.000-1.030) Urine Protein (Negative) Urine Glucose (UA) (Negative) Urine Ketones (Negative) Urine Blood (Negative) Urine Nitrite (Negative) Urine Bilirubin (Negative) Urine Urobilinogen (Negative) Ur Leukocyte Esterase (Negative) Urine WBC (Auto) (0-5) /hpf Urine RBC (Auto) (0-2) /hpf U Hyaline Cast (Auto) (0-2) /lpf U Epithel Cells (Auto) (0-2) /hpf Urine Bacteria (Auto) (None Seen) Nasal Screen MRSA (PCR) (Negative) Urine Opiates Screen (Neg) Ur Methadone, Qual (Neg) Urine Fentanyl Screen (Neg) Urine Barbiturates (Neg) Ur Phencyclidine (PCP) (Neg) U Amphetamin/Meth Scrn (Neg) MDMA (Ecstasy) Screen (Neg) U Benzodiazepines Scrn (Neg) Ur Cocaine Metabolite (Neg) U Marijuana (THC) Screen (Neg) Adenovirus (PCR) (NotDetected) B. pertussis DNA (PCR) (NotDetected) B.parapertussis DNA PCR (NotDetected) C. pneumoniae DNA (PCR) (NotDetected) Coronavirus OC43 (PCR) (NotDetected) Coronavirus HKU1 (PCR) (NotDetected) Coronavirus 229E (PCR) (NotDetected) SARS-CoV-2 (PCR) (Negative) Coronavirus NL63 (PCR) (NotDetected) Human Metapneumovir PCR (NotDetected) Influenza Type A (PCR) (Neg) Influenza Type B (PCR) (Neg) M. pneumoniae (PCR) (NotDetected) Parainfluenza 1 (PCR) (NotDetected) Parainfluenza 2 (PCR) (NotDetected) Parainfluenza 3 (PCR) (NotDetected) Parainfluenza 4 (PCR) (NotDetected) RSV (RT-PCR) (Neg) RSV (PCR) (NotDetected) Entero/Rhino (PCR) (NotDetected) Blood Type Antibody Screen 09/12/23 09/11/23 09/11/23 Range/Units 00:18 22:45 20:47 WBC (4.8-10.8) K/ul RBC (4.70-6.10) M/uL Hgb (14.0-18.0) g/dl POC Hgb 11.2 L (14.0-18.0) g/dl Hct (42.0-52.0) % POC Hct 33 L (42-52) % MCV (80.0-100.0) fL MCH (25.0-34.0) pg MCHC (32.0-36.0) g/dL RDW Std Deviation (36.4-46.3) fL RDW Coeff of Layo (11.5-14.5) % Plt Count (130-400) K/uL MPV (9.4-12.4) fL Immature Gran % (Auto) % Neut % (Auto) % Lymph % (Auto) % Desha % (Auto) % Eos % (Auto) % Baso % (Auto) % Reticulocyte % (Auto) (0.50-2.00) % Neut # (Auto) (1.40-6.50) K/uL Lymph # (Auto) (1.20-3.40) K/uL Desha # (Auto) (0.11-0.59) K/uL Eos # (Auto) (0.00-0.50) K/uL Baso # (Auto) (0.00-0.20) K/uL Reticulocyte # (0.020-0.100) 10^6/uL Immature Gran # (Auto) (0.01-0.20) K/uL Absolute Nucleated RBC (0.00-0.12) K/uL Nucleated RBC % (auto) % Polychromasia Anisocytosis Macrocytosis Tear Drop Cells Ovalocytes PT (9.0-12.0) Seconds INR (0.9-1.1) APTT (21-31) Seconds PTT Ratio Fibrinogen (184-400) mg/dl Sample Site Art Line POC pH 7.36 (7.35-7.45) POC pCO2 36 (35-46) mmHg POC pO2 73 L (80-95) mmHg POC HCO3 20 (19-24) adelina/L POC Total CO2 21 L (24-31) mmol/L POC Base Excess -5.0 (-9-1.8) adelina/L ABG pH (Temp Correct) 7.350 (7.35-7.45) ABG pCO2 (Temp Corrct 37 (35-46) mmHg POC ABG pO2 at Pt Temp 75 POC ABG O2 Sat 94.0 (90-95) % Stan Test Pass VBG pH (7.36-7.41) VBG pCO2 (38-50) mmHg VBG pO2 mmHg VBG HCO3 mmol/L VBG O2 Saturation % VBG Base Excess mEq/L O2 Delivery Device POC O2 Rate POC FiO2 % Tidal Volume PEEP POC Sodium 145 H (135-144) mmol/L Sodium (136-145) mmol/L POC Potassium 4.5 (3.3-5.0) mmol/L Potassium (3.5-5.1) mmol/L Chloride (98-107) mmol/L Carbon Dioxide (21-32) mmol/L Anion Gap (3-11) BUN (6-23) mg/dl Creatinine (0.6-1.4) mg/dl Est Cr Clr Drug Dosing ml/min Est GFR ( Amer) ml/min Est GFR (Non-Af Amer) ml/min BUN/Creatinine Ratio (10-20) Glucose (70-99(Fasting)) mg/dl POC Glucose (70-99) mg/dl POC Glucose (other) 142 H 150 H (70-99) mg/dl Lactate (0.4-2.0) mmol/L Calcium (8.6-10.3) mg/dl Phosphorus (2.5-4.9) mg/dl Magnesium (1.7-2.4) mg/dl Total Bilirubin (0.2-1.0) mg/dl Direct Bilirubin (0-0.2) mg/dl AST (13-39) U/L ALT (7-52) U/L Alkaline Phosphatase (34-104) U/L Ammonia (18-72) umol/L Troponin I High Sens (0-20) pg/ml Total Protein (6.0-8.3) gm/dl Albumin (3.4-5.0) gm/dl Globulin (2.5-4.0) gm/dl Albumin/Globulin Ratio (0.9-2) Procalcitonin (0-0.5) ng/ml TSH (0.300-4.500) uIu/ml Free T4 (0.61-1.60) ng/dl Random Cortisol mcg/dl Urine Color Urine Appearance (Clear) Urine pH (4.5-7.5) Ur Specific Moss (1.000-1.030) Urine Protein (Negative) Urine Glucose (UA) (Negative) Urine Ketones (Negative) Urine Blood (Negative) Urine Nitrite (Negative) Urine Bilirubin (Negative) Urine Urobilinogen (Negative) Ur Leukocyte Esterase (Negative) Urine WBC (Auto) (0-5) /hpf Urine RBC (Auto) (0-2) /hpf U Hyaline Cast (Auto) (0-2) /lpf U Epithel Cells (Auto) (0-2) /hpf Urine Bacteria (Auto) (None Seen) Nasal Screen MRSA (PCR) (Negative) Urine Opiates Screen (Neg) Ur Methadone, Qual (Neg) Urine Fentanyl Screen (Neg) Urine Barbiturates (Neg) Ur Phencyclidine (PCP) (Neg) U Amphetamin/Meth Scrn (Neg) MDMA (Ecstasy) Screen (Neg) U Benzodiazepines Scrn (Neg) Ur Cocaine Metabolite (Neg) U Marijuana (THC) Screen (Neg) Adenovirus (PCR) (NotDetected) B. pertussis DNA (PCR) (NotDetected) B.parapertussis DNA PCR (NotDetected) C. pneumoniae DNA (PCR) (NotDetected) Coronavirus OC43 (PCR) (NotDetected) Coronavirus HKU1 (PCR) (NotDetected) Coronavirus 229E (PCR) (NotDetected) SARS-CoV-2 (PCR) (Negative) Coronavirus NL63 (PCR) (NotDetected) Human Metapneumovir PCR (NotDetected) Influenza Type A (PCR) (Neg) Influenza Type B (PCR) (Neg) M. pneumoniae (PCR) (NotDetected) Parainfluenza 1 (PCR) (NotDetected) Parainfluenza 2 (PCR) (NotDetected) Parainfluenza 3 (PCR) (NotDetected) Parainfluenza 4 (PCR) (NotDetected) RSV (RT-PCR) (Neg) RSV (PCR) (NotDetected) Entero/Rhino (PCR) (NotDetected) Blood Type Antibody Screen 09/11/23 09/11/23 09/11/23 Range/Units 18:39 17:57 12:34 WBC 4.80 (4.8-10.8) K/ul RBC 3.49 L (4.70-6.10) M/uL Hgb 10.1 L (14.0-18.0) g/dl POC Hgb (14.0-18.0) g/dl Hct 31.4 L (42.0-52.0) % POC Hct (42-52) % MCV 90.0 (80.0-100.0) fL MCH 28.9 (25.0-34.0) pg MCHC 32.2 (32.0-36.0) g/dL RDW Std Deviation 67.3 H (36.4-46.3) fL RDW Coeff of Layo 21.1 H (11.5-14.5) % Plt Count 141 (130-400) K/uL MPV 11.8 (9.4-12.4) fL Immature Gran % (Auto) 1.3 % Neut % (Auto) 77.0 % Lymph % (Auto) 14.2 % Desha % (Auto) 6.9 % Eos % (Auto) 0.2 % Baso % (Auto) 0.4 % Reticulocyte % (Auto) 2.04 H (0.50-2.00) % Neut # (Auto) 3.70 (1.40-6.50) K/uL Lymph # (Auto) 0.68 L (1.20-3.40) K/uL Desha # (Auto) 0.33 (0.11-0.59) K/uL Eos # (Auto) 0.01 (0.00-0.50) K/uL Baso # (Auto) 0.02 (0.00-0.20) K/uL Reticulocyte # 0.070 (0.020-0.100) 10^6/uL Immature Gran # (Auto) 0.06 (0.01-0.20) K/uL Absolute Nucleated RBC 0.08 (0.00-0.12) K/uL Nucleated RBC % (auto) 1.7 % Polychromasia Anisocytosis Present Macrocytosis Tear Drop Cells 1+ Ovalocytes 1+ PT (9.0-12.0) Seconds INR (0.9-1.1) APTT (21-31) Seconds PTT Ratio Fibrinogen (184-400) mg/dl Sample Site POC pH (7.35-7.45) POC pCO2 (35-46) mmHg POC pO2 (80-95) mmHg POC HCO3 (19-24) adelina/L POC Total CO2 (24-31) mmol/L POC Base Excess (-9-1.8) adelina/L ABG pH (Temp Correct) (7.35-7.45) ABG pCO2 (Temp Corrct (35-46) mmHg POC ABG pO2 at Pt Temp POC ABG O2 Sat (90-95) % Stan Test VBG pH (7.36-7.41) VBG pCO2 (38-50) mmHg VBG pO2 mmHg VBG HCO3 mmol/L VBG O2 Saturation % VBG Base Excess mEq/L O2 Delivery Device POC O2 Rate POC FiO2 % Tidal Volume PEEP POC Sodium (135-144) mmol/L Sodium (136-145) mmol/L POC Potassium (3.3-5.0) mmol/L Potassium (3.5-5.1) mmol/L Chloride (98-107) mmol/L Carbon Dioxide (21-32) mmol/L Anion Gap (3-11) BUN (6-23) mg/dl Creatinine (0.6-1.4) mg/dl Est Cr Clr Drug Dosing ml/min Est GFR ( Amer) ml/min Est GFR (Non-Af Amer) ml/min BUN/Creatinine Ratio (10-20) Glucose (70-99(Fasting)) mg/dl POC Glucose (70-99) mg/dl POC Glucose (other) 164 H (70-99) mg/dl Lactate (0.4-2.0) mmol/L Calcium (8.6-10.3) mg/dl Phosphorus (2.5-4.9) mg/dl Magnesium (1.7-2.4) mg/dl Total Bilirubin (0.2-1.0) mg/dl Direct Bilirubin (0-0.2) mg/dl AST (13-39) U/L ALT (7-52) U/L Alkaline Phosphatase (34-104) U/L Ammonia (18-72) umol/L Troponin I High Sens (0-20) pg/ml Total Protein (6.0-8.3) gm/dl Albumin (3.4-5.0) gm/dl Globulin (2.5-4.0) gm/dl Albumin/Globulin Ratio (0.9-2) Procalcitonin (0-0.5) ng/ml TSH (0.300-4.500) uIu/ml Free T4 (0.61-1.60) ng/dl Random Cortisol mcg/dl Urine Color Urine Appearance (Clear) Urine pH (4.5-7.5) Ur Specific Moss (1.000-1.030) Urine Protein (Negative) Urine Glucose (UA) (Negative) Urine Ketones (Negative) Urine Blood (Negative) Urine Nitrite (Negative) Urine Bilirubin (Negative) Urine Urobilinogen (Negative) Ur Leukocyte Esterase (Negative) Urine WBC (Auto) (0-5) /hpf Urine RBC (Auto) (0-2) /hpf U Hyaline Cast (Auto) (0-2) /lpf U Epithel Cells (Auto) (0-2) /hpf Urine Bacteria (Auto) (None Seen) Nasal Screen MRSA (PCR) (Negative) Urine Opiates Screen (Neg) Ur Methadone, Qual (Neg) Urine Fentanyl Screen (Neg) Urine Barbiturates (Neg) Ur Phencyclidine (PCP) (Neg) U Amphetamin/Meth Scrn (Neg) MDMA (Ecstasy) Screen (Neg) U Benzodiazepines Scrn (Neg) Ur Cocaine Metabolite (Neg) U Marijuana (THC) Screen (Neg) Adenovirus (PCR) (NotDetected) B. pertussis DNA (PCR) (NotDetected) B.parapertussis DNA PCR (NotDetected) C. pneumoniae DNA (PCR) (NotDetected) Coronavirus OC43 (PCR) (NotDetected) Coronavirus HKU1 (PCR) (NotDetected) Coronavirus 229E (PCR) (NotDetected) SARS-CoV-2 (PCR) (Negative) Coronavirus NL63 (PCR) (NotDetected) Human Metapneumovir PCR (NotDetected) Influenza Type A (PCR) (Neg) Influenza Type B (PCR) (Neg) M. pneumoniae (PCR) (NotDetected) Parainfluenza 1 (PCR) (NotDetected) Parainfluenza 2 (PCR) (NotDetected) Parainfluenza 3 (PCR) (NotDetected) Parainfluenza 4 (PCR) (NotDetected) RSV (RT-PCR) (Neg) RSV (PCR) (NotDetected) Entero/Rhino (PCR) (NotDetected) Blood Type Antibody Screen 09/11/23 09/11/23 09/11/23 Range/Units 12:28 04:40 04:05 WBC (4.8-10.8) K/ul RBC (4.70-6.10) M/uL Hgb (14.0-18.0) g/dl POC Hgb 10.2 L (14.0-18.0) g/dl Hct (42.0-52.0) % POC Hct 30 L (42-52) % MCV (80.0-100.0) fL MCH (25.0-34.0) pg MCHC (32.0-36.0) g/dL RDW Std Deviation (36.4-46.3) fL RDW Coeff of Layo (11.5-14.5) % Plt Count (130-400) K/uL MPV (9.4-12.4) fL Immature Gran % (Auto) % Neut % (Auto) % Lymph % (Auto) % Desha % (Auto) % Eos % (Auto) % Baso % (Auto) % Reticulocyte % (Auto) (0.50-2.00) % Neut # (Auto) (1.40-6.50) K/uL Lymph # (Auto) (1.20-3.40) K/uL Desha # (Auto) (0.11-0.59) K/uL Eos # (Auto) (0.00-0.50) K/uL Baso # (Auto) (0.00-0.20) K/uL Reticulocyte # (0.020-0.100) 10^6/uL Immature Gran # (Auto) (0.01-0.20) K/uL Absolute Nucleated RBC (0.00-0.12) K/uL Nucleated RBC % (auto) % Polychromasia Anisocytosis Macrocytosis Tear Drop Cells Ovalocytes PT (9.0-12.0) Seconds INR (0.9-1.1) APTT (21-31) Seconds PTT Ratio Fibrinogen (184-400) mg/dl Sample Site L Radial POC pH 7.50 H (7.35-7.45) POC pCO2 27 L (35-46) mmHg POC pO2 108 H (80-95) mmHg POC HCO3 21 (19-24) adelina/L POC Total CO2 22 L (24-31) mmol/L POC Base Excess -2.0 (-9-1.8) adelina/L ABG pH (Temp Correct) 7.568 H* (7.35-7.45) ABG pCO2 (Temp Corrct 22 L (35-46) mmHg POC ABG pO2 at Pt Temp 84 POC ABG O2 Sat 99.0 H (90-95) % Stan Test Pass VBG pH (7.36-7.41) VBG pCO2 (38-50) mmHg VBG pO2 mmHg VBG HCO3 mmol/L VBG O2 Saturation % VBG Base Excess mEq/L O2 Delivery Device POC O2 Rate POC FiO2 % Tidal Volume PEEP POC Sodium 149 H (135-144) mmol/L Sodium (136-145) mmol/L POC Potassium 3.5 (3.3-5.0) mmol/L Potassium (3.5-5.1) mmol/L Chloride (98-107) mmol/L Carbon Dioxide (21-32) mmol/L Anion Gap (3-11) BUN (6-23) mg/dl Creatinine (0.6-1.4) mg/dl Est Cr Clr Drug Dosing ml/min Est GFR ( Amer) ml/min Est GFR (Non-Af Amer) ml/min BUN/Creatinine Ratio (10-20) Glucose (70-99(Fasting)) mg/dl POC Glucose (70-99) mg/dl POC Glucose (other) 141 H (70-99) mg/dl Lactate (0.4-2.0) mmol/L Calcium (8.6-10.3) mg/dl Phosphorus (2.5-4.9) mg/dl Magnesium (1.7-2.4) mg/dl Total Bilirubin (0.2-1.0) mg/dl Direct Bilirubin (0-0.2) mg/dl AST (13-39) U/L ALT (7-52) U/L Alkaline Phosphatase (34-104) U/L Ammonia (18-72) umol/L Troponin I High Sens (0-20) pg/ml Total Protein (6.0-8.3) gm/dl Albumin (3.4-5.0) gm/dl Globulin (2.5-4.0) gm/dl Albumin/Globulin Ratio (0.9-2) Procalcitonin (0-0.5) ng/ml TSH (0.300-4.500) uIu/ml Free T4 (0.61-1.60) ng/dl Random Cortisol mcg/dl Urine Color Urine Appearance (Clear) Urine pH (4.5-7.5) Ur Specific Moss (1.000-1.030) Urine Protein (Negative) Urine Glucose (UA) (Negative) Urine Ketones (Negative) Urine Blood (Negative) Urine Nitrite (Negative) Urine Bilirubin (Negative) Urine Urobilinogen (Negative) Ur Leukocyte Esterase (Negative) Urine WBC (Auto) (0-5) /hpf Urine RBC (Auto) (0-2) /hpf U Hyaline Cast (Auto) (0-2) /lpf U Epithel Cells (Auto) (0-2) /hpf Urine Bacteria (Auto) (None Seen) Nasal Screen MRSA (PCR) (Negative) Urine Opiates Screen (Neg) Ur Methadone, Qual (Neg) Urine Fentanyl Screen (Neg) Urine Barbiturates (Neg) Ur Phencyclidine (PCP) (Neg) U Amphetamin/Meth Scrn (Neg) MDMA (Ecstasy) Screen (Neg) U Benzodiazepines Scrn (Neg) Ur Cocaine Metabolite (Neg) U Marijuana (THC) Screen (Neg) Adenovirus (PCR) Not Detected (NotDetected) B. pertussis DNA (PCR) Not Detected (NotDetected) B.parapertussis DNA PCR Not Detected (NotDetected) C. pneumoniae DNA (PCR) Not Detected (NotDetected) Coronavirus OC43 (PCR) Not Detected (NotDetected) Coronavirus HKU1 (PCR) Not Detected (NotDetected) Coronavirus 229E (PCR) Not Detected (NotDetected) SARS-CoV-2 (PCR) Not Detected (Negative) Coronavirus NL63 (PCR) Not Detected (NotDetected) Human Metapneumovir PCR Not Detected (NotDetected) Influenza Type A (PCR) Not Detected (Neg) Influenza Type B (PCR) Not Detected (Neg) M. pneumoniae (PCR) Not Detected (NotDetected) Parainfluenza 1 (PCR) Not Detected (NotDetected) Parainfluenza 2 (PCR) Not Detected (NotDetected) Parainfluenza 3 (PCR) Not Detected (NotDetected) Parainfluenza 4 (PCR) Not Detected (NotDetected) RSV (RT-PCR) (Neg) RSV (PCR) Not Detected (NotDetected) Entero/Rhino (PCR) Not Detected (NotDetected) Blood Type Antibody Screen 09/11/23 09/11/23 09/11/23 Range/Units 03:59 03:41 03:40 WBC 2.67 L (4.8-10.8) K/ul RBC 3.18 L (4.70-6.10) M/uL Hgb 9.2 L (14.0-18.0) g/dl POC Hgb (14.0-18.0) g/dl Hct 28.5 L (42.0-52.0) % POC Hct (42-52) % MCV 89.6 (80.0-100.0) fL MCH 28.9 (25.0-34.0) pg MCHC 32.3 (32.0-36.0) g/dL RDW Std Deviation 67.9 H (36.4-46.3) fL RDW Coeff of Layo 20.8 H (11.5-14.5) % Plt Count 110 L (130-400) K/uL MPV 12.5 H (9.4-12.4) fL Immature Gran % (Auto) 0.4 % Neut % (Auto) 52.8 % Lymph % (Auto) 29.6 % Desha % (Auto) 12.4 % Eos % (Auto) 3.7 % Baso % (Auto) 1.1 % Reticulocyte % (Auto) (0.50-2.00) % Neut # (Auto) 1.41 (1.40-6.50) K/uL Lymph # (Auto) 0.79 L (1.20-3.40) K/uL Desha # (Auto) 0.33 (0.11-0.59) K/uL Eos # (Auto) 0.10 (0.00-0.50) K/uL Baso # (Auto) 0.03 (0.00-0.20) K/uL Reticulocyte # (0.020-0.100) 10^6/uL Immature Gran # (Auto) 0.01 (0.01-0.20) K/uL Absolute Nucleated RBC 0.02 (0.00-0.12) K/uL Nucleated RBC % (auto) 0.7 % Polychromasia 2+ Anisocytosis Macrocytosis Tear Drop Cells 1+ Ovalocytes 1+ PT 14.6 H (9.0-12.0) Seconds INR 1.4 H (0.9-1.1) APTT (21-31) Seconds PTT Ratio Fibrinogen 264 (184-400) mg/dl Sample Site POC pH (7.35-7.45) POC pCO2 (35-46) mmHg POC pO2 (80-95) mmHg POC HCO3 (19-24) adelina/L POC Total CO2 (24-31) mmol/L POC Base Excess (-9-1.8) adelina/L ABG pH (Temp Correct) (7.35-7.45) ABG pCO2 (Temp Corrct (35-46) mmHg POC ABG pO2 at Pt Temp POC ABG O2 Sat (90-95) % Stan Test VBG pH (7.36-7.41) VBG pCO2 (38-50) mmHg VBG pO2 mmHg VBG HCO3 mmol/L VBG O2 Saturation % VBG Base Excess mEq/L O2 Delivery Device POC O2 Rate POC FiO2 % Tidal Volume PEEP POC Sodium (135-144) mmol/L Sodium 146 H (136-145) mmol/L POC Potassium (3.3-5.0) mmol/L Potassium 3.7 (3.5-5.1) mmol/L Chloride 116 H (98-107) mmol/L Carbon Dioxide 23 (21-32) mmol/L Anion Gap 7 (3-11) BUN 50 H (6-23) mg/dl Creatinine 0.75 (0.6-1.4) mg/dl Est Cr Clr Drug Dosing 67.4 ml/min Est GFR ( Amer) 94.9 ml/min Est GFR (Non-Af Amer) 81.9 ml/min BUN/Creatinine Ratio 66.7 H (10-20) Glucose 117 H (70-99(Fasting)) mg/dl POC Glucose (70-99) mg/dl POC Glucose (other) (70-99) mg/dl Lactate (0.4-2.0) mmol/L Calcium 8.3 L (8.6-10.3) mg/dl Phosphorus 3.4 (2.5-4.9) mg/dl Magnesium 1.7 (1.7-2.4) mg/dl Total Bilirubin 1.1 H (0.2-1.0) mg/dl Direct Bilirubin (0-0.2) mg/dl AST 22 (13-39) U/L ALT 15 (7-52) U/L Alkaline Phosphatase 93 (34-104) U/L Ammonia 24.0 (18-72) umol/L Troponin I High Sens (0-20) pg/ml Total Protein 5.7 L (6.0-8.3) gm/dl Albumin 2.5 L (3.4-5.0) gm/dl Globulin 3.2 (2.5-4.0) gm/dl Albumin/Globulin Ratio 0.8 L (0.9-2) Procalcitonin (0-0.5) ng/ml TSH (0.300-4.500) uIu/ml Free T4 (0.61-1.60) ng/dl Random Cortisol mcg/dl Urine Color Urine Appearance (Clear) Urine pH (4.5-7.5) Ur Specific Moss (1.000-1.030) Urine Protein (Negative) Urine Glucose (UA) (Negative) Urine Ketones (Negative) Urine Blood (Negative) Urine Nitrite (Negative) Urine Bilirubin (Negative) Urine Urobilinogen (Negative) Ur Leukocyte Esterase (Negative) Urine WBC (Auto) (0-5) /hpf Urine RBC (Auto) (0-2) /hpf U Hyaline Cast (Auto) (0-2) /lpf U Epithel Cells (Auto) (0-2) /hpf Urine Bacteria (Auto) (None Seen) Nasal Screen MRSA (PCR) (Negative) Urine Opiates Screen (Neg) Ur Methadone, Qual (Neg) Urine Fentanyl Screen (Neg) Urine Barbiturates (Neg) Ur Phencyclidine (PCP) (Neg) U Amphetamin/Meth Scrn (Neg) MDMA (Ecstasy) Screen (Neg) U Benzodiazepines Scrn (Neg) Ur Cocaine Metabolite (Neg) U Marijuana (THC) Screen (Neg) Adenovirus (PCR) (NotDetected) B. pertussis DNA (PCR) (NotDetected) B.parapertussis DNA PCR (NotDetected) C. pneumoniae DNA (PCR) (NotDetected) Coronavirus OC43 (PCR) (NotDetected) Coronavirus HKU1 (PCR) (NotDetected) Coronavirus 229E (PCR) (NotDetected) SARS-CoV-2 (PCR) (Negative) Coronavirus NL63 (PCR) (NotDetected) Human Metapneumovir PCR (NotDetected) Influenza Type A (PCR) (Neg) Influenza Type B (PCR) (Neg) M. pneumoniae (PCR) (NotDetected) Parainfluenza 1 (PCR) (NotDetected) Parainfluenza 2 (PCR) (NotDetected) Parainfluenza 3 (PCR) (NotDetected) Parainfluenza 4 (PCR) (NotDetected) RSV (RT-PCR) (Neg) RSV (PCR) (NotDetected) Entero/Rhino (PCR) (NotDetected) Blood Type A Positive Antibody Screen NEGATIVE 09/11/23 09/11/23 09/10/23 Range/Units 01:24 01:12 23:40 WBC (4.8-10.8) K/ul RBC (4.70-6.10) M/uL Hgb (14.0-18.0) g/dl POC Hgb (14.0-18.0) g/dl Hct (42.0-52.0) % POC Hct (42-52) % MCV (80.0-100.0) fL MCH (25.0-34.0) pg MCHC (32.0-36.0) g/dL RDW Std Deviation (36.4-46.3) fL RDW Coeff of Layo (11.5-14.5) % Plt Count (130-400) K/uL MPV (9.4-12.4) fL Immature Gran % (Auto) % Neut % (Auto) % Lymph % (Auto) % Desha % (Auto) % Eos % (Auto) % Baso % (Auto) % Reticulocyte % (Auto) (0.50-2.00) % Neut # (Auto) (1.40-6.50) K/uL Lymph # (Auto) (1.20-3.40) K/uL Desha # (Auto) (0.11-0.59) K/uL Eos # (Auto) (0.00-0.50) K/uL Baso # (Auto) (0.00-0.20) K/uL Reticulocyte # (0.020-0.100) 10^6/uL Immature Gran # (Auto) (0.01-0.20) K/uL Absolute Nucleated RBC (0.00-0.12) K/uL Nucleated RBC % (auto) % Polychromasia Anisocytosis Macrocytosis Tear Drop Cells Ovalocytes PT (9.0-12.0) Seconds INR (0.9-1.1) APTT (21-31) Seconds PTT Ratio Fibrinogen (184-400) mg/dl Sample Site POC pH (7.35-7.45) POC pCO2 (35-46) mmHg POC pO2 (80-95) mmHg POC HCO3 (19-24) adelina/L POC Total CO2 (24-31) mmol/L POC Base Excess (-9-1.8) adelina/L ABG pH (Temp Correct) (7.35-7.45) ABG pCO2 (Temp Corrct (35-46) mmHg POC ABG pO2 at Pt Temp POC ABG O2 Sat (90-95) % Stan Test VBG pH (7.36-7.41) VBG pCO2 (38-50) mmHg VBG pO2 mmHg VBG HCO3 mmol/L VBG O2 Saturation % VBG Base Excess mEq/L O2 Delivery Device POC O2 Rate POC FiO2 % Tidal Volume PEEP POC Sodium (135-144) mmol/L Sodium (136-145) mmol/L POC Potassium (3.3-5.0) mmol/L Potassium (3.5-5.1) mmol/L Chloride (98-107) mmol/L Carbon Dioxide (21-32) mmol/L Anion Gap (3-11) BUN (6-23) mg/dl Creatinine (0.6-1.4) mg/dl Est Cr Clr Drug Dosing ml/min Est GFR ( Amer) ml/min Est GFR (Non-Af Amer) ml/min BUN/Creatinine Ratio (10-20) Glucose (70-99(Fasting)) mg/dl POC Glucose (70-99) mg/dl POC Glucose (other) (70-99) mg/dl Lactate (0.4-2.0) mmol/L Calcium (8.6-10.3) mg/dl Phosphorus (2.5-4.9) mg/dl Magnesium (1.7-2.4) mg/dl Total Bilirubin (0.2-1.0) mg/dl Direct Bilirubin (0-0.2) mg/dl AST (13-39) U/L ALT (7-52) U/L Alkaline Phosphatase (34-104) U/L Ammonia (18-72) umol/L Troponin I High Sens 17.7 D (0-20) pg/ml Total Protein (6.0-8.3) gm/dl Albumin (3.4-5.0) gm/dl Globulin (2.5-4.0) gm/dl Albumin/Globulin Ratio (0.9-2) Procalcitonin (0-0.5) ng/ml TSH 8.410 H (0.300-4.500) uIu/ml Free T4 1.19 (0.61-1.60) ng/dl Random Cortisol 9.87 mcg/dl Urine Color Dark Yellow Urine Appearance Clear (Clear) Urine pH 5.0 (4.5-7.5) Ur Specific Moss 1.025 (1.000-1.030) Urine Protein Trace H (Negative) Urine Glucose (UA) Negative (Negative) Urine Ketones Negative (Negative) Urine Blood Negative (Negative) Urine Nitrite Negative (Negative) Urine Bilirubin Negative (Negative) Urine Urobilinogen Negative (Negative) Ur Leukocyte Esterase Negative (Negative) Urine WBC (Auto) 0-5 (0-5) /hpf Urine RBC (Auto) 0-2 (0-2) /hpf U Hyaline Cast (Auto) 0-2 (0-2) /lpf U Epithel Cells (Auto) 0-2 (0-2) /hpf Urine Bacteria (Auto) None Seen (None Seen) Nasal Screen MRSA (PCR) Negative (Negative) Urine Opiates Screen (Neg) Ur Methadone, Qual (Neg) Urine Fentanyl Screen (Neg) Urine Barbiturates (Neg) Ur Phencyclidine (PCP) (Neg) U Amphetamin/Meth Scrn (Neg) MDMA (Ecstasy) Screen (Neg) U Benzodiazepines Scrn (Neg) Ur Cocaine Metabolite (Neg) U Marijuana (THC) Screen (Neg) Adenovirus (PCR) (NotDetected) B. pertussis DNA (PCR) (NotDetected) B.parapertussis DNA PCR (NotDetected) C. pneumoniae DNA (PCR) (NotDetected) Coronavirus OC43 (PCR) (NotDetected) Coronavirus HKU1 (PCR) (NotDetected) Coronavirus 229E (PCR) (NotDetected) SARS-CoV-2 (PCR) NEGATIVE (Negative) Coronavirus NL63 (PCR) (NotDetected) Human Metapneumovir PCR (NotDetected) Influenza Type A (PCR) Negative (Neg) Influenza Type B (PCR) Negative (Neg) M. pneumoniae (PCR) (NotDetected) Parainfluenza 1 (PCR) (NotDetected) Parainfluenza 2 (PCR) (NotDetected) Parainfluenza 3 (PCR) (NotDetected) Parainfluenza 4 (PCR) (NotDetected) RSV (RT-PCR) Negative (Neg) RSV (PCR) (NotDetected) Entero/Rhino (PCR) (NotDetected) Blood Type Antibody Screen 09/10/23 09/10/23 09/10/23 Range/Units 23:15 22:50 22:10 WBC 3.37 L (4.8-10.8) K/ul RBC 3.78 L (4.70-6.10) M/uL Hgb 10.9 L (14.0-18.0) g/dl POC Hgb (14.0-18.0) g/dl Hct 35.3 L (42.0-52.0) % POC Hct (42-52) % MCV 93.4 (80.0-100.0) fL MCH 28.8 (25.0-34.0) pg MCHC 30.9 L (32.0-36.0) g/dL RDW Std Deviation 71.7 H (36.4-46.3) fL RDW Coeff of Layo 21.4 H (11.5-14.5) % Plt Count 112 L (130-400) K/uL MPV 12.3 (9.4-12.4) fL Immature Gran % (Auto) 0.3 % Neut % (Auto) 37.3 % Lymph % (Auto) 46.0 % Desha % (Auto) 11.9 % Eos % (Auto) 3.6 % Baso % (Auto) 0.9 % Reticulocyte % (Auto) (0.50-2.00) % Neut # (Auto) 1.26 L (1.40-6.50) K/uL Lymph # (Auto) 1.55 (1.20-3.40) K/uL Desha # (Auto) 0.40 (0.11-0.59) K/uL Eos # (Auto) 0.12 (0.00-0.50) K/uL Baso # (Auto) 0.03 (0.00-0.20) K/uL Reticulocyte # (0.020-0.100) 10^6/uL Immature Gran # (Auto) 0.01 (0.01-0.20) K/uL Absolute Nucleated RBC (0.00-0.12) K/uL Nucleated RBC % (auto) % Polychromasia Anisocytosis Present Macrocytosis Tear Drop Cells 1+ Ovalocytes 1+ PT 13.4 H (9.0-12.0) Seconds INR 1.3 H (0.9-1.1) APTT 36 H (21-31) Seconds PTT Ratio 1.3 Fibrinogen (184-400) mg/dl Sample Site POC pH (7.35-7.45) POC pCO2 (35-46) mmHg POC pO2 (80-95) mmHg POC HCO3 (19-24) adelina/L POC Total CO2 (24-31) mmol/L POC Base Excess (-9-1.8) adelina/L ABG pH (Temp Correct) (7.35-7.45) ABG pCO2 (Temp Corrct (35-46) mmHg POC ABG pO2 at Pt Temp POC ABG O2 Sat (90-95) % Stan Test VBG pH 7.41 (7.36-7.41) VBG pCO2 43 (38-50) mmHg VBG pO2 93 mmHg VBG HCO3 27 mmol/L VBG O2 Saturation 97.5 % VBG Base Excess 2.2 mEq/L O2 Delivery Device POC O2 Rate POC FiO2 % Tidal Volume PEEP POC Sodium (135-144) mmol/L Sodium 147 H (136-145) mmol/L POC Potassium (3.3-5.0) mmol/L Potassium 3.7 (3.5-5.1) mmol/L Chloride 114 H (98-107) mmol/L Carbon Dioxide 29 (21-32) mmol/L Anion Gap 4 (3-11) BUN 52 H (6-23) mg/dl Creatinine 0.86 (0.6-1.4) mg/dl Est Cr Clr Drug Dosing 58.8 ml/min Est GFR ( Amer) 89.7 ml/min Est GFR (Non-Af Amer) 77.4 ml/min BUN/Creatinine Ratio 60.5 H (10-20) Glucose 84 (70-99(Fasting)) mg/dl POC Glucose (70-99) mg/dl POC Glucose (other) (70-99) mg/dl Lactate 1.6 (0.4-2.0) mmol/L Calcium 9.3 (8.6-10.3) mg/dl Phosphorus (2.5-4.9) mg/dl Magnesium 1.9 (1.7-2.4) mg/dl Total Bilirubin 1.2 H (0.2-1.0) mg/dl Direct Bilirubin 0.3 H (0-0.2) mg/dl AST 24 (13-39) U/L ALT 17 (7-52) U/L Alkaline Phosphatase 113 H (34-104) U/L Ammonia (18-72) umol/L Troponin I High Sens 22.4 H (0-20) pg/ml Total Protein 6.7 (6.0-8.3) gm/dl Albumin 3.0 L (3.4-5.0) gm/dl Globulin (2.5-4.0) gm/dl Albumin/Globulin Ratio (0.9-2) Procalcitonin 0.06 (0-0.5) ng/ml TSH (0.300-4.500) uIu/ml Free T4 (0.61-1.60) ng/dl Random Cortisol mcg/dl Urine Color Urine Appearance (Clear) Urine pH (4.5-7.5) Ur Specific Moss (1.000-1.030) Urine Protein (Negative) Urine Glucose (UA) (Negative) Urine Ketones (Negative) Urine Blood (Negative) Urine Nitrite (Negative) Urine Bilirubin (Negative) Urine Urobilinogen (Negative) Ur Leukocyte Esterase (Negative) Urine WBC (Auto) (0-5) /hpf Urine RBC (Auto) (0-2) /hpf U Hyaline Cast (Auto) (0-2) /lpf U Epithel Cells (Auto) (0-2) /hpf Urine Bacteria (Auto) (None Seen) Nasal Screen MRSA (PCR) (Negative) Urine Opiates Screen Neg (Neg) Ur Methadone, Qual Neg (Neg) Urine Fentanyl Screen Neg (Neg) Urine Barbiturates Neg (Neg) Ur Phencyclidine (PCP) Neg (Neg) U Amphetamin/Meth Scrn Neg (Neg) MDMA (Ecstasy) Screen Neg (Neg) U Benzodiazepines Scrn Neg (Neg) Ur Cocaine Metabolite Neg (Neg) U Marijuana (THC) Screen Neg (Neg) Adenovirus (PCR) (NotDetected) B. pertussis DNA (PCR) (NotDetected) B.parapertussis DNA PCR (NotDetected) C. pneumoniae DNA (PCR) (NotDetected) Coronavirus OC43 (PCR) (NotDetected) Coronavirus HKU1 (PCR) (NotDetected) Coronavirus 229E (PCR) (NotDetected) SARS-CoV-2 (PCR) (Negative) Coronavirus NL63 (PCR) (NotDetected) Human Metapneumovir PCR (NotDetected) Influenza Type A (PCR) (Neg) Influenza Type B (PCR) (Neg) M. pneumoniae (PCR) (NotDetected) Parainfluenza 1 (PCR) (NotDetected) Parainfluenza 2 (PCR) (NotDetected) Parainfluenza 3 (PCR) (NotDetected) Parainfluenza 4 (PCR) (NotDetected) RSV (RT-PCR) (Neg) RSV (PCR) (NotDetected) Entero/Rhino (PCR) (NotDetected) Blood Type Antibody Screen Diagnostic Findings Chest X-Ray 09/10/23 23:10 SINGLE VIEW CHEST CLINICAL HISTORY: Sepsis. FINDINGS: 2 AP, portable, upright chest radiographs are compared to study dated 02/10/2023. The examination is severely degraded by portable technique and patient rotation. The patient's had largely obscures the apices. The patient is status post midline sternotomy. A 2-lead cardiac pacemaker is unchanged in position. The heart is enlarged. The pulmonary vasculature is not congested. There are layering pleural effusions. Airspace consolidation is seen at the left lung base. Foci of parenchymal scarring are seen in the right upper lung. No pneumothorax is seen. The skeletal structures are osteopenic. Advanced arthritic change is noted in the shoulders. There are chronic/healed right-sided rib fractures.. IMPRESSION: 1. Cardiomegaly and cardiac pacemaker without radiographic evidence of congestive failure. 2. Left basilar consolidation is typical for pneumonia/aspiration pneumonitis. Clinical correlation will be required and radiographic follow-up to resolution is recommend. 3. Layering pleural effusions. ACT 112: Negative or not required by law. Electronically signed by: Gee Dawson M.D. 09/11/2023 8:[address] 09/11/23 02:01 Exam(s): CT CHEST W/WO Contrast IV Amt: 93 cc's optiray 320 EXAM: CT Chest Without and With Intravenous Contrast CLINICAL HISTORY: Reason for exam: apnea. TECHNIQUE: Axial computed tomography images of the chest without and with intravenous contrast. Automated exposure control was utilized for the study. A dose lowering technique was utilized adhering to the principles of ALARA. CONTRAST: Patient received 93 cc's optiray 320 of IV contrast COMPARISON: No relevant prior studies available. FINDINGS: Lungs: Dependent airspace consolidations, preferentially involving the RIGHT middle lobe and LEFT lower lobe, consistent with aspiration pneumonia. No mass. Pleural space: Small bilateral parapneumonic effusions. Heart: Unremarkable. No cardiomegaly. No significant pericardial effusion. No significant coronary artery calcifications. Bones/joints: Degenerative changes of the spine. Soft tissues: Unremarkable. Vasculature: Atherosclerotic changes of the aorta. No thoracic aortic aneurysm. Lymph nodes: Unremarkable. No enlarged lymph nodes. Tubes, lines and devices: Endotracheal tube terminates in the trachea. Feeding tube terminates in the stomach. IMPRESSION: 1. Dependent airspace consolidations, preferentially involving the RIGHT middle lobe and LEFT lower lobe, consistent with aspiration pneumonia. 2. Small bilateral parapneumonic effusions. 3. Endotracheal tube terminates in the trachea. Electronically signed by: Jacinto Linda MD 09/11/23 05:[address] 09/11/23 02:01 Exam(s): CT HEAD Without Contrast EXAM: CT Head Without Intravenous Contrast CLINICAL HISTORY: Reason for exam: ams. TECHNIQUE: Axial computed tomography images of the head/brain without intravenous contrast. Automated exposure control was utilized for the study. A dose lowering technique was utilized adhering to the principles of ALARA. COMPARISON: No relevant prior studies available. FINDINGS: No acute intracranial hemorrhage. No midline shift or mass effect. The territorial perez-white matter differentiation is maintained throughout. Age-related cerebral volume loss. Periventricular and subcortical white matter hypoattenuation, consistent with chronic microangiopathy. The visualized orbits appear grossly unremarkable. The calvarium is intact. Paranasal sinus mucosal thickening. IMPRESSION: No acute intracranial hemorrhage, midline shift, or mass effect. Electronically signed by: Jacinto Linda MD 09/11/23 04:04 AM Chest X-Ray 09/11/23 02:20 SINGLE VIEW CHEST CLINICAL HISTORY: Respiratory failure. Intubation. FINDINGS: 2 AP, portable, supine chest radiographs are compared to study dated 09/10/2023. The examination is degraded by portable technique and patient rotation. The patient is status post midline sternotomy. A 2-lead cardiac pacemaker is unchanged in position. An endotracheal tube has been placed. The tip projects approximately 2 cm above the jayla. The heart is enlarged. The pulmonary vasculature is noncongested. There are layering pleural effusions. Airspace consolidation is seen at the left lung base. There are also airspace opacities at the right apex. No pneumothorax is seen. The skeletal structures are osteopenic. Advanced arthritic change is noted in the shoulders. There are chronic/healed right-sided rib fractures. IMPRESSION: 1. An endotracheal tube has been placed as above. 2. Cardiomegaly and cardiac pacemaker without radiographic evidence of congestive failure. 3. Left basilar consolidation is typical for pneumonia/aspiration pneumonitis. There are also airspace opacities in the right upper lung. Radiographic follow- up to resolution is recommend. 4. Layering pleural effusions. ACT 112: Negative or not required by law. Electronically signed by: Gee Dawson M.D. 09/11/2023 8:11 AM Chest X-Ray 09/11/23 02:49 SINGLE VIEW CHEST CLINICAL HISTORY: Line and tube placement. FINDINGS: 2 AP, portable, supine chest radiographs are compared to study performed earlier the same day 09/11/2023. The examination is severely degraded by portable technique and patient rotation. The patient is status post midline sternotomy. A 2-lead cardiac pacemaker is unchanged in position. An endotracheal tube is unchanged in position. An enteric tube has been placed. The tip projects below the diaphragm over the proximal stomach. A right internal jugular central venous catheter has been placed. The tip projects over the SVC. The heart is enlarged. The pulmonary vasculature is noncongested. There are layering pleural effusions. Airspace consolidation is seen at the left lung base. There are also airspace opacities at the right apex. No pneumothorax is seen. The skeletal structures are osteopenic. Advanced arthritic change is noted in the shoulders. There are chronic/healed right-sided rib fractures. IMPRESSION: 1. Line and tube placement as above. No pneumothorax is identified. 2. Cardiomegaly and cardiac pacemaker without radiographic evidence of congestive failure. 3. Left basilar consolidation is typical for pneumonia/aspiration pneumonitis. There are also airspace opacities in the right upper lung. Radiographic follow- up to resolution is recommend. 4. Layering pleural effusions. ACT 112: Negative or not required by law. Electronically signed by: Gee Dawson M.D. 09/11/2023 8:12 AM Abdomen Ultrasound 09/11/23 05:05 ULTRASOUND RIGHT UPPER QUADRANT ABDOMEN CLINICAL HISTORY: Elevated bilirubin levels. COMPARISON STUDY: Abdominal CT dated 07/25/2021 TECHNIQUE: Real-time, grayscale, and color flow sonography of the right upper quadrant of the abdomen was performed. Images are reviewed in the transverse and longitudinal planes. FINDINGS: Liver: The liver is cirrhotic in morphology and heterogeneous in echotexture. There is nodularity of the hepatic surface contour. There is no intrahepatic biliary ductal dilatation. The main portal vein is patent. Gallbladder: The gallbladder is mildly distended and contains biliary sludge. There is nonspecific gallbladder wall thickening which measures up to 3 mm. There is pericholecystic fluid/ascites. A sonographic Valenzuela's sign could not be assessed. The common bile duct measures up to 0.3 cm in diameter. Pancreas: Visualized portions of the pancreatic head are normal in appearance. The majority of pancreas is obscured by overlying bowel gas. Right kidney: Survey images of the right kidney demonstrate normal size and echotexture. There is no hydronephrosis. There is a 1.6 cm shadowing calculus in the renal pelvis. A 3.2 cm cyst is seen in the upper pole. Ascites: There is a small volume of perihepatic ascites. IMPRESSION: 1. The liver is cirrhotic in morphology and heterogeneous in echotexture. 2. Small volume abdominal ascites. 3. The gallbladder is mildly distended and contains biliary sludge. Gallbladder wall thickening is nonspecific comment likely related to adjacent hepatocellular disease and ascites. The sonographic Valenzuela's sign could not be assessed. Findings are not highly suspicious for acute cholecystitis but this is difficult to evaluate. If there is strong clinical concern for acute cholecystitis a nuclear hepatobiliary scan should be considered. 4. Right-sided nephrolithiasis. ACT 112: Negative or not required by law. Electronically signed by: Gee Dawson M.D. 09/11/2023 7:09 AM Chest X-Ray 09/12/23 06:00 XR chest 1V portable CLINICAL HISTORY: eval lung brady, lines and tubes, while intubated COMPARISON STUDY: Chest radiograph and chest CT September 11, 2023. FINDINGS: Tip of endotracheal tube is 2.8 cm above the jayla. Tip of nasogastric tube is within the body of the stomach. Right internal jugular central line remains in place. There is no pneumothorax. There are median sternotomy wires and a left subclavian pacer. Small bilateral pleural effusions and bibasilar opacities have increased. Mild interstitial thickening is also increased. IMPRESSION: 1. Satisfactory positioning of lines and tubes. 2. Increase in small bilateral pleural effusions and associated bibasilar opacities which favor pneumonia or aspiration pneumonitis. 3. Increase in interstitial thickening suggestive of mild pulmonary edema. ACT 112: Negative or not required by law. Electronically signed by: Bay Moctezuma M.D. 09/12/2023 7:10 AM Chest X-Ray 09/13/23 06:00 XR chest 1V portable HISTORY: 88 years-old Male eval lung brady, lines and tubes, while intubated acute respiratory failure COMPARISON: 09/12/2023 TECHNIQUE: AP view of the chest FINDINGS: Endotracheal tube overlies the midline, approximately 4.8 cm superior to the jayla. Median sternotomy. Numerous telemetry leads are coiled over the chest. Right IJ catheter distal tip is noted within the expected location of the superior cavoatrial junction.. Distal tip of enteric tube projects over the- body. Left subclavian pacer. No pneumothorax. Cardiomegaly with pulmonary vascular congestion and interstitial coarsening. No pneumothorax. Small right greater than left pleural effusions with bibasilar opacities. Degenerative changes of the shoulders and spine. Chronic right proximal humeral deformity. IMPRESSION: 1. Cardiomegaly with pulmonary edema. 2. Layering pleural effusions with right greater than left bibasilar consolidation. 3. Lines and tubes as above. ACT 112: Negative or not required by law. The above report was generated using voice recognition software. It may contain grammatical, syntax or spelling errors. Electronically signed by: Kevin Light M.D. 09/13/2023 7:51 AM Chest X-Ray 09/14/23 07:00 XR chest 1V portable CLINICAL HISTORY: Respiratory failure. COMPARISON STUDY: Chest CT September 11, 2023. Chest radiograph September 13, 2023. FINDINGS: Tip of endotracheal tube is 2.9 cm above the jayla. Tip of nasogastric tube is within the body of the stomach. Right internal jugular central line remains in place. There are median sternotomy wires. Left subclavian pacer is in place. Cardiomegaly is again noted. There is no pneumothorax. Interstitial thickening persists. There are persistent small bilateral pleural effusions with associated bibasilar opacities. Left lower lung opacity has increased. IMPRESSION: 1. Satisfactory positioning of lines and tubes. 2. Cardiomegaly with persistent pulmonary edema. 3. Small bilateral pleural effusions with associated bibasilar opacities. Left basilar opacity has increased since prior exam. ACT 112: Negative or not required by law. Electronically signed by: Bay Moctezuma M.D. 09/14/2023 8:22 AM Chest X-Ray 09/15/23 07:00 XR chest 1V portable CLINICAL HISTORY: Respiratory failure. COMPARISON STUDY: Chest CT September 11, 2023. Chest radiograph September 14, 2023. FINDINGS: The tip of the endotracheal tube is 3.3 cm above the jayla. Tip of nasogastric tube is within the body of the stomach. Right internal jugular ce ntral line remains in place. There is a dual-lead left subclavian pacer and median sternotomy wires. Cardiomegaly is again noted. There is no pneumothorax. Small bilateral pleural effusions with extensive bibasilar opacities persist. Interstitial thickening is similar to prior exam. IMPRESSION: 1. Satisfactory positioning of lines and tubes. 2. Cardiomegaly with persistent pulmonary edema. 2. No change in small bilateral pleural effusions with extensive bibasilar opacities. ACT 112: Negative or not required by law. Electronically signed by: Bay Moctezuma M.D. 09/15/2023 7:02 AM PG Care Time/CCT Total # of Minutes Spent Total Time Spent with Patient: Total time spent is greater than 50% in coordination of care (as documented) at patient's floor/unit and/or counseling patient: I spent 125 minutes overall addressing this very complex case: 15 min in medical data review/discussion with referring provider(s) and/or preparation for the visit 20 min in direct interaction with the patient/exam 60 min in Advance Care Planning/Goals of Care discussions as detailed above in note (must be >16min) 15 min in subsequent review and synthesis of assessment and plan 15 min communicating with other providers regarding the patient's case: primary, nursing, CCM Advanced Care Planning 16800 Advanced Care Planning 30 Min 40671 Advanced Care Planning Additional 30 [place] [address] IN/OBS CONSULT LVL 5,80M (25 - SIGNIFICANT, SEPARATELY IDENTIFIABLE ) Patient Type New Medical Decision Making High Complexity Diagnoses Altered mental status R41.82 Severe dementia with other behavioral disturbance, unspecified dementia type F03.C18 Dementia behavioral or psychological symptom: with other behavioral dist urbance Dementia severity: severe Dementia type: unspecified type Weakness generalized R53.1 Discussion about advance care planning held with family member Z71.0 Palliative care by specialist Z51.5 Additional Codes Advanced Care Planning - 31561 Advanced Care Planning 30 Min: 03969 Advanced Care Planning 30 Min ([id number]) Advanced Care Planning - 14533 Advanced Care Planning Additional 30 Min: 46223 Advanced Care Planning Additional 30 Min ([id number])
[2023-09-16] MEDS: LEVOTHYROXINE SODIUM 37.5 MCG in SYRINGE 0 ML IV STA (11:12)
[2023-09-16] MEDS ORDERED: Nursing to Pharmacy Communication SCH (14:45)
[2023-09-16] MEDS: INSULIN ASPART PER UNIT CHARGE SC SCH (18:05)
[2023-09-16] MEDS: HYDROCORTISONE SOD 50 MG in SYRINGE 0 ML IV SCH (19:43)
--- NOTE | 2023-09-16 22:57 | Hospitalist Progress Note ---
Date of Service September 16, 2023 Assessment & Plan (1) Sepsis: Plan: Patient leukopenic, hypothermic, hypotensive. Etiology of sepsis unclear. Likely multifactorial with dehydration, poor PO intake, probable infection, adrenal insufficiency, and poor reserves. Lactate < 2. Procal negative. VBG without acid-base disturbance. Ammonia 24. Random cortisol - 9.87. TSH 8.41. Inadequate response to acute stressor. CT Head per my read with diffuse brain atrophy, no obvious bleed. Formal read pending. Infectious source unclear - likely pulmonary. CXR extremely poor quality. CT Chest pending. BioFire, blood cultures, and MRSA nares pending. Started on empiric abx. blood cultures pending CT Chest, CT Head ordered MRSA nares and BioFire pending, Utox ordered started on cefepime and empiric vanc stress dose steroids vasopressive support with levophed sedation with fentanyl/propofol while intubated Patient with clinical deterioration with hypotension and respiratory failure as outlined above - now requiring ICU level care with mechanical ventilation and vasopressive support. Hospitalist team will continue to follow along with patient's care. Patient was extubated. Given poor quality of life, consulted palliative care. Downgrade form ICU. Consulted speech therapy. (2) Acute hypotension: Plan: Patient now off levophed- titration per protocol. Goal MAP > 65. (3) Adrenal insufficiency: Plan: Insufficient cortisol response to stressor. Start hydrocortisone 100 mg now with 50 mg Q6H after. Continue to monitor. (4) Respiratory failure: Plan: s/p intubation in the ED by Dr. Parra. Appropriate placement confirmed. Continue mechanical ventilation. (5) Elevated troponin I level: Plan: Peaked 22.4. Likely demand. (6) Acute dehydration: Plan: Fluid resuscitated with 3 L. Likely contributory, but not main cause of hypotension. (7) Hypothermia: Plan: Continue Sean Hugger. If needed could trial fluid warmer. (8) Hypernatremia: Plan: Mild hypernatremia. Continue to monitor. (9) Severe dementia: Plan: Hold home dementia medications while intubated. (10) Airway clearance impairment: Plan: Unable to protect airway. Intubated as above. Continue with mechanical ventilation (11) Encephalopathy: Plan: See above (12) CAD (coronary artery disease): Plan: s/p CABG x 4. Hold home metoprolol, statin, ASA Plan Code status: full DVT ppx: INR 1.3. Holding ASA Lines: Woods, OGT, A-line, Central line, ETT Admission and Anticipated Discharge Date Admission Date: September 11, 2023 Subjective Patient is an 88 yo male with advanced dementia Review of Systems Review of Systems: All systems reviewed & are unremarkable except as noted in HPI & below Physical Exam Physical Exam: Constitutional: Non verbal. HEENT: PERRLA, arcus senilis bilaterally Respiratory system: Decreased air entry bilaterally, no wheeze, no rhonchi, positive crackles bilaterally CVS: S1-S2 positive, no murmurs or gallops, distant heart sounds Abdomen: Soft, nontender, nondistended, positive bowel sounds x4 Extremities: +1 pulses bilaterally radialis/ dorsalis pedis, no cyanosis, +2 pitting edema bilateral lower extremity Neuro: RASS -1, breathing with the vent Psych: Unable to assess G/U: Positive Woods Results & Data Results & Data Vital Signs (Past 12 Hours) Vital Signs Temp Pulse Pulse Resp BP BP BP 09/16/23 20:08 36.3 C L 64 20 116/78 09/16/23 15:14 59 L 22 09/16/23 15:05 60 09/16/23 13:53 09/16/23 13:44 36.3 C L 62 18 109/68 09/16/23 12:09 36.1 C L 59 L 16 111/72 09/16/23 11:00 35.9 C L 65 4 L 115/68 Pulse Ox O2 Del Method 09/16/23 20:08 91 Room Air 09/16/23 15:14 96 Room Air 09/16/23 15:05 09/16/23 13:53 Room Air 09/16/23 13:44 95 Room Air 09/16/23 12:09 88 L 09/16/23 11:00 97 PG Care Time/CCT Total # of Minutes Spent Total Time Spent with Patient: Total time spent is greater than 50% in coordination of care (as documented) at patient's floor/unit and/or counseling patient: Coding Level of Care Code 89238 SUB INP/OBS CARE 2/35MIN Diagnoses Sepsis A41.9 Acute hypotension I95.9 Adrenal insufficiency E27.40 Respiratory failure J96.01 Chronicity: acute Respiratory failure complication: hypoxia Elevated troponin I level R79.89 Acute dehydration E86.0 Hypothermia T68.XXXA Encounter type: initial encounter Hypernatremia E87.0 Severe dementia F03.C0 Airway clearance impairment R06.89 Encephalopathy G93.40 Coronary artery disease involving coronary bypass graft of [place] heart without angina pectoris I25.810 Associated angina: without angina Coronary Disease-Associated Artery/Lesion type: bypass graft [place] vs. transplanted heart: [place] heart (4) Respiratory failure Chronicity: acute Respiratory failure complication: hypoxia Qualified Code(s): J96.01 - Acute respiratory failure with hypoxia (7) Hypothermia Encounter type: initial encounter Qualified Code(s): T68.XXXA - Hypothermia, initial encounter (12) CAD (coronary artery disease) Associated angina: without angina Coronary Disease-Associated Artery/Lesion type: bypass graft [place] vs. transplanted heart: [place] heart Qualified Code(s): I25.810 - Atherosclerosis of coronary artery bypass graft(s) without angina pectoris
[2023-09-17 07:22] LABS: BUN Creatinine Ratio 44.3 (10-20); Calcium 8.2 mg/dl (8.6-10.3); Est GFR (African American) 88.9 ml/min; Est GFR (Non-African American) 76.7 ml/min; Phosphorus 2.3 mg/dl (2.5-4.9); Potassium 3.6 mmol/L (3.5-5.1)
[2023-09-17 07:39] LABS: Partial Thromboplastin Ratio 1.3; Partial Thromboplastin Time 34 Seconds (21-31)
[2023-09-17 08:13] LABS: Magnesium 2.1 mg/dl (1.7-2.4)
--- NOTE | 2023-09-17 22:33 | Hospitalist Progress Note ---
Date of Service September 17, 2023 Assessment & Plan (1) Sepsis: Plan: Patient leukopenic, hypothermic, hypotensive. Etiology of sepsis unclear. Likely multifactorial with dehydration, poor PO intake, probable infection, adrenal insufficiency, and poor reserves. Lactate < 2. Procal negative. VBG without acid-base disturbance. Ammonia 24. Random cortisol - 9.87. TSH 8.41. Inadequate response to acute stressor. CT Head per my read with diffuse brain atrophy, no obvious bleed. Formal read pending. Infectious source unclear - likely pulmonary. CXR extremely poor quality. CT Chest pending. BioFire, blood cultures, and MRSA nares pending. Started on empiric abx. blood cultures pending CT Chest, CT Head ordered MRSA nares and BioFire pending, Utox ordered started on cefepime and empiric vanc stress dose steroids vasopressive support with levophed sedation with fentanyl/propofol while intubated Patient with clinical deterioration with hypotension and respiratory failure as outlined above - now requiring ICU level care with mechanical ventilation and vasopressive support. Hospitalist team will continue to follow along with patient's care. Patient was extubated. Given poor quality of life, consulted palliative care. Downgrade form ICU. Consulted speech therapy, now tolerating diet. Family updated on 09/16 (2) Acute hypotension: Plan: Resolved Patient now off levophed- (3) Adrenal insufficiency: Plan: Insufficient cortisol response to stressor. Start hydrocortisone 100 mg now with 50 mg Q6H after. Continue to monitor. (4) Respiratory failure: Plan: s/p intubation in the ED by Dr. Parra. Appropriate placement confirmed. Continue mechanical ventilation. (5) Elevated troponin I level: Plan: Peaked 22.4. Likely demand. (6) Acute dehydration: Plan: Fluid resuscitated with 3 L. Likely contributory, but not main cause of hypotension. (7) Hypothermia: Plan: Continue Sean Hugger. If needed could trial fluid warmer. (8) Hypernatremia: Plan: Mild hypernatremia. Continue to monitor. (9) Severe dementia: Plan: Hold home dementia medications while intubated. (10) Airway clearance impairment: Plan: Unable to protect airway. Intubated as above. Continue with mechanical ventilation (11) Encephalopathy: Plan: See above (12) CAD (coronary artery disease): Plan: s/p CABG x 4. Hold home metoprolol, statin, ASA Plan Code status: full DVT ppx: INR 1.3. Holding ASA Lines: Woods, OGT, A-line, Central line, ETT Admission and Anticipated Discharge Date Admission Date: September 11, 2023 Subjective Family is at bedside and are updated. Patient is nonverbal but able to eat. Review of Systems Review of Systems: All systems reviewed & are unremarkable except as noted in HPI & below Physical Exam Physical Exam: Constitutional: Non verbal. HEENT: PERRLA, arcus senilis bilaterally Respiratory system: Decreased air entry bilaterally, no wheeze, no rhonchi. CVS: S1-S2 positive, no murmurs or gallops, distant heart sounds Abdomen: Soft, nontender, nondistended, positive bowel sounds x4 Extremities: +1 pulses bilaterally radialis/ dorsalis pedis, no cyanosis, +2 pitting edema bilateral lower extremity Neuro: RASS -1, breathing with the vent Psych: Unable to assess G/U: Positive Woods Results & Data Results & Data Vital Signs (Past 12 Hours) Vital Signs Temp Pulse Resp BP Pulse Ox O2 Del Method 09/17/23 19:59 36.8 C 61 20 132/73 94 Room Air 09/17/23 15:46 36.8 C 72 18 140/83 94 Room Air PG Care Time/CCT Total # of Minutes Spent Total Time Spent with Patient: Total time spent is greater than 50% in coordination of care (as documented) at patient's floor/unit and/or counseling patient: Coding Level of Care Code 88011 SUB INP/OBS CARE 2/35MIN Diagnoses Sepsis A41.9 Acute hypotension I95.9 Adrenal insufficiency E27.40 Respiratory failure J96.01 Chronicity: acute Respiratory failure complication: hypoxia Elevated troponin I level R79.89 Acute dehydration E86.0 Hypothermia T68.XXXA Encounter type: initial encounter Hypernatremia E87.0 Severe dementia F03.C0 Airway clearance impairment R06.89 Encephalopathy G93.40 Coronary artery disease involving coronary bypass graft of [place] heart without angina pectoris I25.810 Associated angina: without angina Coronary Disease-Associated Artery/Lesion type: bypass graft [place] vs. transplanted heart: [place] heart (4) Respiratory failure Chronicity: acute Respiratory failure complication: hypoxia Qualified Code(s): J96.01 - Acute respiratory failure with hypoxia (7) Hypothermia Encounter type: initial encounter Qualified Code(s): T68.XXXA - Hypothermia, initial encounter (12) CAD (coronary artery disease) Associated angina: without angina Coronary Disease-Associated Artery/Lesion type: bypass graft [place] vs. transplanted heart: [place] heart Qualified Code(s): I25.810 - Atherosclerosis of coronary artery bypass graft(s) without angina pectoris
[2023-09-18 06:21] LABS: Calcium 7.9 mg/dl (8.6-10.3); Creatinine Clr Calc Pharmacy 63.7 ml/min; Est GFR (African American) 90.6 ml/min; Est GFR (Non-African American) 78.2 ml/min; Phosphorus 2.1 mg/dl (2.5-4.9); Potassium 3.3 mmol/L (3.5-5.1)
[2023-09-18 06:31] LABS: Hemoglobin 9.8 g/dl (14.0-18.0); Mean Corpuscular Hgb Conc 32.7 g/dL (32.0-36.0); Mean Corpuscular Volume 88.8 fL (80.0-100.0); Mean Platelet Volume 12.3 fL (9.4-12.4); Nucleated RBC # (auto) 0.03 K/uL (0.00-0.12); Nucleated RBC % (auto) 0.4 %; Platelet Count 127 K/uL (130-400); RDW Coefficient of Variation 21.3 % (11.5-14.5); RDW Standard Deviation 68.6 fL (36.4-46.3); Red Blood Count 3.38 M/uL (4.70-6.10); White Blood Count 7.83 K/ul (4.8-10.8)
[2023-09-18 06:35] LABS: Partial Thromboplastin Ratio 1.2; Partial Thromboplastin Time 33 Seconds (21-31)
[2023-09-18] MEDS: HYDROCORTISONE SOD 50 MG in SYRINGE 0 ML IV SCH (08:36)
[2023-09-18] MEDS ORDERED: POTASSIUM PHOS 3 MMOL/1 ML INFUSION IV STA (16:48)
[2023-09-18] MEDS: SODIUM CHLOR 0.45% + 20MEQ KCL 20 MEQ/1,000 ML BAG IV SCH (17:38)
[2023-09-18] MEDS: POTASSIUM PHOSPHATE 21 MMOL in SODIUM CHLORIDE 0.9% 500 ML IV ONE (17:38)
--- NOTE | 2023-09-18 22:32 | Hospitalist Progress Note ---
Date of Service September 18, 2023 Assessment & Plan (1) Sepsis: Plan: Patient leukopenic, hypothermic, hypotensive. Etiology of sepsis unclear. Likely multifactorial with dehydration, poor PO intake, probable infection, adrenal insufficiency, and poor reserves. Lactate < 2. Procal negative. VBG without acid-base disturbance. Ammonia 24. Random cortisol - 9.87. TSH 8.41. Inadequate response to acute stressor. CT Head per my read with diffuse brain atrophy, no obvious bleed. Formal read pending. Infectious source unclear - likely pulmonary. CXR extremely poor quality. CT Chest pending. BioFire, blood cultures, and MRSA nares pending. Started on empiric abx. blood cultures pending CT Chest, CT Head ordered MRSA nares and BioFire pending, Utox ordered started on cefepime and empiric vanc stress dose steroids vasopressive support with levophed sedation with fentanyl/propofol while intubated Patient with clinical deterioration with hypotension and respiratory failure as outlined above - now requiring ICU level care with mechanical ventilation and vasopressive support. Hospitalist team will continue to follow along with patient's care. Patient was extubated on 09/14 Given advanced dementia, possible poor quality of life, consulted palliative care. Downgrade from ICU. Consulted speech therapy, now tolerating diet. Family updated on 09/17 discussed stopping antibiotics after 7 day course. Given improvement, normal vitals. Ok to stop after 7 days. Family agreeable after extrensive discussion. Gave option to extend antibiotics, but was ok to stop given risk of c. dif coitis. (2) Acute hypotension: Plan: Resolved Patient now off levophed- (3) Adrenal insufficiency: Plan: Insufficient cortisol response to stressor. Start hydrocortisone 100 mg now with 50 mg Q6H after. Continue to monitor. (4) Respiratory failure: Plan: s/p intubation in the ED by Dr. Parra. Appropriate placement confirmed. Continue mechanical ventilation. (5) Elevated troponin I level: Plan: Peaked 22.4. Likely demand. (6) Acute dehydration: Plan: Fluid resuscitated with 3 L. Likely contributory, but not main cause of hypo tension. resolved. (7) Hypothermia: Plan: Continue Sean Hugger. If needed could trial fluid warmer. (8) Hypernatremia: Plan: Mild hypernatremia. Continue to monitor. Placed on IVF on 09/17 (9) Severe dementia: Plan: Hold home dementia medications while intubated. (10) Airway clearance impairment: Plan: Unable to protect airway. Intubated as above. Continue with mechanical ventilation (11) Encephalopathy: Plan: See above (12) CAD (coronary artery disease): Plan: s/p CABG x 4. Hold home metoprolol, statin, ASA Plan Code status: full DVT ppx: INR 1.3. Holding ASA Lines: [place], OGT, A-line, Central line, ETT Admission and Anticipated Discharge Date Admission Date: September 11, 2023 Subjective Patient is a poor historian. non verbal. is concerned about nasal drainage. Review of Systems Review of Systems: All systems reviewed & are unremarkable except as noted in HPI & below Physical Exam Physical Exam: Constitutional: Non verbal. HEENT: PERRLA, arcus senilis bilaterally Respiratory system: Decreased air entry bilaterally, no wheeze, no rhonchi. CVS: S1-S2 positive, no murmurs or gallops, distant heart sounds Abdomen: Soft, nontender, nondistended, positive bowel sounds x4 Extremities: +1 pulses bilaterally radialis/ dorsalis pedis, no cyanosis, +2 pitting edema bilateral lower extremity Psych: Unable to assess G/U: Positive Woods Results & Data Results & Data Vital Signs (Past 12 Hours) Vital Signs Temp Pulse Resp BP Pulse Ox O2 Del Method 09/18/23 19:30 36.3 C L 60 20 130/68 90 Room Air 09/18/23 15:16 36.6 C 60 19 112/68 94 Room Air 09/18/23 11:30 36.6 C 61 19 128/69 94 Room Air PG Care Time/CCT Total # of Minutes Spent Total Time Spent with Patient: Total time spent is greater than 50% in coordination of care (as documented) at patient's floor/unit and/or counseling patient: Coding Level of Care Code 76530 SUB INP/OBS CARE 2/35MIN Diagnoses Sepsis A41.9 Acute hypotension I95.9 Adrenal insufficiency E27.40 Respiratory failure J96.01 Chronicity: acute Respiratory failure complication: hypoxia Elevated troponin I level R79.89 Acute dehydration E86.0 Hypothermia T68.XXXA Encounter type: initial encounter Hypernatremia E87.0 Severe dementia F03.C0 Airway clearance impairment R06.89 Encephalopathy G93.40 Coronary artery disease involving coronary bypass graft of [place] heart without angina pectoris I25.810 Associated angina: without angina Coronary Disease-Associated Artery/Lesion type: bypass graft [place] vs. transplanted heart: [place] heart (4) Respiratory failure Chronicity: acute Respiratory failure complication: hypoxia Qualified Code(s): J96.01 - Acute respiratory failure with hypoxia (7) Hypothermia Encounter type: initial encounter Qualified Code(s): T68.XXXA - Hypothermia, initial encounter (12) CAD (coronary artery disease) Associated angina: without angina Coronary Disease-Associated Artery/Lesion type: bypass graft [place] vs. transplanted heart: [place] heart Qualified Code(s): I25.810 - Atherosclerosis of coronary artery bypass graft(s) without angina pectoris
[2023-09-19 06:35] LABS: Basophils # (auto) 0.01 K/uL (0.00-0.20); Basophils % (auto) 0.1 %; Eosinophils # (auto) 0.54 K/uL (0.00-0.50); Eosinophils % (auto) 5.3 %; Hematocrit (blood only) 33.1 % (42.0-52.0); Hemoglobin 10.4 g/dl (14.0-18.0); Immature Granulocytes # (auto) 0.08 K/uL (0.01-0.20); Immature Granulocytes % (auto) 0.8 %; Lymphocytes # (auto) 1.22 K/uL (1.20-3.40); Lymphocytes % (auto) 12.1 %; Mean Corpuscular Hemoglobin 28.4 pg (25.0-34.0); Mean Corpuscular Hgb Conc 31.4 g/dL (32.0-36.0); Mean Corpuscular Volume 90.4 fL (80.0-100.0); Mean Platelet Volume 11.3 fL (9.4-12.4); Monocytes # (auto) 0.57 K/uL (0.11-0.59); Monocytes % (auto) 5.6 %; Neutrophils # (auto) 7.68 K/uL (1.40-6.50); Neutrophils % (auto) 76.1 %; Nucleated RBC # (auto) 0.03 K/uL (0.00-0.12); Nucleated RBC % (auto) 0.3 %; Platelet Count 122 K/uL (130-400); RDW Coefficient of Variation 21.4 % (11.5-14.5); RDW Standard Deviation 69.8 fL (36.4-46.3); Red Blood Count 3.66 M/uL (4.70-6.10)
[2023-09-19 06:58] LABS: Partial Thromboplastin Ratio 1.4; Partial Thromboplastin Time 38 Seconds (21-31)
[2023-09-19 07:00] LABS: BUN Creatinine Ratio 45.1 (10-20); Calcium 8.1 mg/dl (8.6-10.3); Creatinine Clr Calc Pharmacy 75.6 ml/min; Est GFR (African American) 97.1 ml/min; Est GFR (Non-African American) 83.8 ml/min; Phosphorus 2.5 mg/dl (2.5-4.9); Potassium 3.8 mmol/L (3.5-5.1)
[2023-09-19 07:31] LABS: Anisocytosis Present; Ovalocytes 1+; Polychromasia 1+; Target Cells 1+
--- NOTE | 2023-09-19 08:44 | Hospitalist Progress Note ---
Date of Service September 19, 2023 Assessment & Plan (1) Sepsis: Plan: Patient leukopenic, hypothermic, hypotensive. Metabolic encephalopahty with sepsis, Etiology of sepsis unclear. Likely multifactorial with dehydration, poor PO intake, probable infection, adrenal insufficiency, and poor reserves. initially intubated resusitated and required vasopressor support, improved and eventually extubated 09/14-Given advanced dementia, possible poor quality of life, consulted palliative care. Ammonia 24. Random cortisol - 9.87. TSH 8.41. Inadequate response to acute stressor. Started on empiric abx. complete 7 day course blood cultures negative to date MRSA nares and BioFire pending, Utox ordered started on cefepime and empiric vanc stress dose steroids now begin tapering doses of prednisone p.o. Consulted speech therapy, now tolerating diet. Family updated on 09/18 discussed stopping antibiotics after 7 day course. Patient has improved no source identified (2) Adrenal insufficiency: Plan: Insufficient cortisol response to stressor. Start hydrocortisone 100 mg now with 50 mg Q6H after. Transition oral prednisone on 09/19 tapering dose (3) Elevated troponin I level: Plan: Peaked 22.4. Likely demand ischemia (4) Hypernatremia: Plan: Mild hypernatremia. Continue to monitor. Placed on IVF on 09/18. 1/2 nss (5) Severe dementia: Plan: Hold home dementia medications (6) CAD (coronary artery disease): Plan: s/p CABG x 4. Hold home metoprolol, statin, ASA Plan Code status:conditional code Admission and Anticipated Discharge Date Admission Date: September 11, 2023 Subjective Patient is seen patient is seen in the company of his he is lethargic she is feeding him he is on a modified diet due to significant aspiration risk. He is having pattern breathing but he does arouse in between Overall look severely deconditioned Physical Exam Physical Exam: Patient will mumble but not answer questions he is drooling when asleep He is hunched over and supported by pillows Marked decreased breath sounds at the bases Card exam is distant but regular Abdomen NABS soft nontender Left hand has a rash bonnet Results & Data Results & Data Vital Signs (Past 12 Hours) Vital Signs Temp Pulse Pulse Resp BP Pulse Ox O2 Del Method 09/19/23 07:49 Room Air 09/19/23 07:49 61 09/19/23 07:13 97.5 F L 60 20 126/67 97 Room Air 09/19/23 02:59 97.3 F L 62 22 132/75 91 Room Air 09/18/23 22:33 97.3 F L 70 18 132/85 95 Room Air 09/18/23 22:00 61 Laboratory Results Reviewed CBC reviewed chemistry PG Care Time/CCT Total # of Minutes Spent Total Time Spent with Patient: Total time spent is greater than 50% in coordination of care (as documented) at patient's floor/unit and/or counseling patient: Coding Level of Care Code 93478 SUB INP/OBS CARE 3/50MIN Diagnoses Sepsis A41.9 Adrenal insufficiency E27.40 Elevated troponin I level R79.89 Hypernatremia E87.0 Severe dementia F03.C0 Coronary artery disease involving coronary bypass graft of [place] heart without angina pectoris I25.810 Associated angina: without angina Coronary Disease-Associated Artery/Lesion type: bypass graft [place] vs. transplanted heart: [place] heart (6) CAD (coronary artery disease) Associated angina: without angina Coronary Disease-Associated Artery/Lesion type: bypass graft [place] vs. transplanted heart: [place] heart Qualified Code(s): I25.810 - Atherosclerosis of coronary artery bypass graft(s) without angina pectoris
[2023-09-19] MEDS: SODIUM CHLORIDE 0.45 % 1,000 ML IV SCH (08:56)
--- NOTE | 2023-09-19 10:39 | Communication Note ---
Date of Service: September 19, 2023 Pall Med Brief Note contacted by pt this morning who states there was a lot of conversation about antibiotics this weekend and it makes her uncomfortable to think they might be withheld so she wants to re do his POLST to modify the Abtx section to say "always give Abtx to prolong life." She states she spoke with her kids and they all feel abtx should always be given and selecting limited use made them feel like medical teams would withhold this care from pt. She will be here after 11am. I am in [facility] clinic this afternoon and unable to meet, but we have agreed to meet tomorrow at 1130 to fill out a new POLST unless she is able to complete it with another provider today. Thank you for allowing us to participate in the ongoing care of this patient. Please page with any additional concerns. Eugene Dupree DNP Director, Palliative Medicine
[2023-09-20 07:17] LABS: BUN Creatinine Ratio 50.8 (10-20); Creatinine Clr Calc Pharmacy 85.4 ml/min; Phosphorus 1.9 mg/dl (2.5-4.9); Potassium 3.7 mmol/L (3.5-5.1)
[2023-09-20 07:28] LABS: Partial Thromboplastin Ratio 1.2; Partial Thromboplastin Time 33 Seconds (21-31)
[2023-09-20] MEDS: predniSONE 20 MG TAB PO SCH (08:28)
[2023-09-20] MEDS: SODIUM CHLORIDE 0.45 % 1,000 ML IV SCH (09:26)
--- NOTE | 2023-09-20 12:25 | Palliative Care Progress Note ---
Date of Service September 20, 2023 Assessment & Plan (1) Weakness generalized: (2) Altered mental status: (3) Discussion about advance care planning held with family member: Plan: Face to face ACP with who is also pcp x 25min New POLST completed, she wants Abtx always she wanted specifically noted to use bipap but no intubation, if he is found pulseless/no respiration then allow natural she wants to see how much better he can get from this current state she was advised of his elevated sodium but feels the intermediate can give IVF and temporize this but she had a hard time grasping this may be a sign of continued decline and failure. she does not want to discuss options if he fails to improve, she feels he had good QOL before this admission and feels it is reasonable to expect he recovers back to [employer] baseline though we hav reviewed several times now that the new baseline to emerge is going to be lower than [employer] Pall Med clinic follow up offered, she will call when desired (4) Palliative care by specialist: Plan as above new POLST completed, prior shredded copy to [facility] floor chart and sent for scanning original plus 2 copies given to she states she will discard the 2 prior copies from 09/15/72 POLST bc they are at her home. Thank you for allowing us to participate in the ongoing care of this patient. Please page with any additional concerns. Eugene Dupree DNP Director, Palliative Medicine Admission and Anticipated Discharge Date Admission Date: September 11, 2023 Subjective lethargic and declining PO sodium hgh, dc cancelled at bedside, she wants to change POLST to reflect she always wants abtx given Review of Systems Review of Systems: Unobtainable due to cognitive status and Unobtainable due to reduced consciousness Physical Exam Physical Exam: FAST Stage 7e Constitutional: + ill appearing, + altered mental status , + behavioral limitations and + lethargic Eyes: reactive pupils ENMT: Mouth: + drooling and + poor dentition Neck: normal visual inspection and trachea midline Respiratory: normal respiratory effort and symmetric chest movement Auscultation: + diminished lung sounds and + rhonchi Cardiovascular: Rate/Rhythm: + irregularly irregular Heart Sounds: no m urmur Gastrointestinal (Abdomen): Inspection/Auscultation: + abdomen distended and normal bowel sounds Musculoskeletal: gen weakness Skin: pale, warm, venous insuff changes BLE Neurologic: non verbal lethargic but opens eyes to voice unable to follow commands Results & Data Vital Signs (Past 12 Hours) Vital Signs Temp Pulse Pulse Resp BP Pulse Ox O2 Del Method 09/20/23 11:33 36.0 C L 69 18 115/69 93 Room Air 09/20/23 08:00 Room Air 09/20/23 07:32 36.7 C 65 16 164/113 H 91 Room Air 09/20/23 07:29 60 09/20/23 02:44 36.3 C L 57 L 18 126/71 95 Room Air Laboratory Results 09/20/23 09/20/23 09/20/23 Range/Units 11:11 07:08 06:29 WBC (4.8-10.8) K/ul RBC (4.70-6.10) M/uL Hgb (14.0-18.0) g/dl POC Hgb (14.0-18.0) g/dl Hct (42.0-52.0) % POC Hct (42-52) % MCV (80.0-100.0) fL MCH (25.0-34.0) pg MCHC (32.0-36.0) g/dL RDW Std Deviation (36.4-46.3) fL RDW Coeff of Layo (11.5-14.5) % Plt Count (130-400) K/uL MPV (9.4-12.4) fL Immature Gran % (Auto) % Neut % (Auto) % Lymph % (Auto) % [place] % (Auto) % Eos % (Auto) % Baso % (Auto) % Neut # (Auto) (1.40-6.50) K/uL Lymph # (Auto) (1.20-3.40) K/uL [place] # (Auto) (0.11-0.59) K/uL Eos # (Auto) (0.00-0.50) K/uL Baso # (Auto) (0.00-0.20) K/uL Immature Gran # (Auto) (0.01-0.20) K/uL Absolute Nucleated RBC (0.00-0.12) K/uL Nucleated RBC % (auto) % Polychromasia Anisocytosis Target Cells Ovalocytes PT (9.0-12.0) Seconds INR (0.9-1.1) APTT 33 H (21-31) Seconds PTT Ratio 1.2 Sample Site POC pH (7.35-7.45) POC pCO2 (35-46) mmHg POC pO2 (80-95) mmHg POC HCO3 (19-24) adelina/L POC Total CO2 (24-31) mmol/L POC Base Excess (-9-1.8) adelina/L ABG pH (Temp Correct) (7.35-7.45) ABG pCO2 (Temp Corrct (35-46) mmHg POC ABG pO2 at Pt Temp POC ABG O2 Sat (90-95) % Stan Test O2 Delivery Device POC O2 Rate POC FiO2 % Tidal Volume PEEP POC Sodium (135-144) mmol/L Sodium 148 H (136-145) mmol/L POC Potassium (3.3-5.0) mmol/L Potassium 3.7 (3.5-5.1) mmol/L Chloride 115 H (98-107) mmol/L Carbon Dioxide 29 (21-32) mmol/L Anion Gap 4 (3-11) BUN 32 H (6-23) mg/dl Creatinine 0.63 (0.6-1.4) mg/dl Est Cr Clr Drug Dosing 85.4 ml/min Est GFR ( Amer) 102.0 ml/min Est GFR (Non-Af Amer) 88.0 ml/min BUN/Creatinine Ratio 50.8 H (10-20) Glucose 86 (70-99(Fasting)) mg/dl POC Glucose 81 86 (70-99) mg/dl POC Glucose (other) (70-99) mg/dl Calcium 8.0 L (8.6-10.3) mg/dl Phosphorus 1.9 L (2.5-4.9) mg/dl Magnesium 2.0 (1.7-2.4) mg/dl Total Bilirubin (0.2-1.0) mg/dl AST (13-39) U/L ALT (7-52) U/L Alkaline Phosphatase (34-104) U/L Total Protein (6.0-8.3) gm/dl Albumin (3.4-5.0) gm/dl Globulin (2.5-4.0) gm/dl Albumin/Globulin Ratio (0.9-2) Procalcitonin (0-0.5) ng/ml 09/19/23 09/19/23 09/19/23 Range/Units 20:20 16:01 10:58 WBC (4.8-10.8) K/ul RBC (4.70-6.10) M/uL Hgb (14.0-18.0) g/dl POC Hgb (14.0-18.0) g/dl Hct (42.0-52.0) % POC Hct (42-52) % MCV (80.0-100.0) fL MCH (25.0-34.0) pg MCHC (32.0-36.0) g/dL RDW Std Deviation (36.4-46.3) fL RDW Coeff of Layo (11.5-14.5) % Plt Count (130-400) K/uL MPV (9.4-12.4) fL Immature Gran % (Auto) % Neut % (Auto) % Lymph % (Auto) % [place] % (Auto) % Eos % (Auto) % Baso % (Auto) % Neut # (Auto) (1.40-6.50) K/uL Lymph # (Auto) (1.20-3.40) K/uL [place] # (Auto) (0.11-0.59) K/uL Eos # (Auto) (0.00-0.50) K/uL Baso # (Auto) (0.00-0.20) K/uL Immature Gran # (Auto) (0.01-0.20) K/uL Absolute Nucleated RBC (0.00-0.12) K/uL Nucleated RBC % (auto) % Polychromasia Anisocytosis Target Cells Ovalocytes PT (9.0-12.0) Seconds INR (0.9-1.1) APTT (21-31) Seconds PTT Ratio Sample Site POC pH (7.35-7.45) POC pCO2 (35-46) mmHg POC pO2 (80-95) mmHg POC HCO3 (19-24) adelina/L POC Total CO2 (24-31) mmol/L POC Base Excess (-9-1.8) adelina/L ABG pH (Temp Correct) (7.35-7.45) ABG pCO2 (Temp Corrct (35-46) mmHg POC ABG pO2 at Pt Temp POC ABG O2 Sat (90-95) % Stan Test O2 Delivery Device POC O2 Rate POC FiO2 % Tidal Volume PEEP POC Sodium (135-144) mmol/L Sodium (136-145) mmol/L POC Potassium (3.3-5.0) mmol/L Potassium (3.5-5.1) mmol/L Chloride (98-107) mmol/L Carbon Dioxide (21-32) mmol/L Anion Gap (3-11) BUN (6-23) mg/dl Creatinine (0.6-1.4) mg/dl Est Cr Clr Drug Dosing ml/min Est GFR ( Amer) ml/min Est GFR (Non-Af Amer) ml/min BUN/Creatinine Ratio (10-20) Glucose (70-99(Fasting)) mg/dl POC Glucose 200 H 227 H 98 (70-99) mg/dl POC Glucose (other) (70-99) mg/dl Calcium (8.6-10.3) mg/dl Phosphorus (2.5-4.9) mg/dl Magnesium (1.7-2.4) mg/dl Total Bilirubin (0.2-1.0) mg/dl AST (13-39) U/L ALT (7-52) U/L Alkaline Phosphatase (34-104) U/L Total Protein (6.0-8.3) gm/dl Albumin (3.4-5.0) gm/dl Globulin (2.5-4.0) gm/dl Albumin/Globulin Ratio (0.9-2) Procalcitonin (0-0.5) ng/ml 09/19/23 09/19/23 09/18/23 Range/Units 07:12 06:05 20:06 WBC 10.10 (4.8-10.8) K/ul RBC 3.66 L (4.70-6.10) M/uL Hgb 10.4 L (14.0-18.0) g/dl POC Hgb (14.0-18.0) g/dl Hct 33.1 L (42.0-52.0) % POC Hct (42-52) % MCV 90.4 (80.0-100.0) fL MCH 28.4 (25.0-34.0) pg MCHC 31.4 L (32.0-36.0) g/dL RDW Std Deviation 69.8 H (36.4-46.3) fL RDW Coeff of Layo 21.4 H (11.5-14.5) % Plt Count 122 L (130-400) K/uL MPV 11.3 (9.4-12.4) fL Immature Gran % (Auto) 0.8 % Neut % (Auto) 76.1 % Lymph % (Auto) 12.1 % [place] % (Auto) 5.6 % Eos % (Auto) 5.3 % Baso % (Auto) 0.1 % Neut # (Auto) 7.68 H (1.40-6.50) K/uL Lymph # (Auto) 1.22 (1.20-3.40) K/uL [place] # (Auto) 0.57 (0.11-0.59) K/uL Eos # (Auto) 0.54 H (0.00-0.50) K/uL Baso # (Auto) 0.01 (0.00-0.20) K/uL Immature Gran # (Auto) 0.08 (0.01-0.20) K/uL Absolute Nucleated RBC 0.03 (0.00-0.12) K/uL Nucleated RBC % (auto) 0.3 % Polychromasia 1+ Anisocytosis Present Target Cells 1+ Ovalocytes 1+ PT (9.0-12.0) Seconds INR (0.9-1.1) APTT 38 H (21-31) Seconds PTT Ratio 1.4 Sample Site POC pH (7.35-7.45) POC pCO2 (35-46) mmHg POC pO2 (80-95) mmHg POC HCO3 (19-24) adelina/L POC Total CO2 (24-31) mmol/L POC Base Excess (-9-1.8) adelina/L ABG pH (Temp Correct) (7.35-7.45) ABG pCO2 (Temp Corrct (35-46) mmHg POC ABG pO2 at Pt Temp POC ABG O2 Sat (90-95) % Stan Test O2 Delivery Device POC O2 Rate POC FiO2 % Tidal Volume PEEP POC Sodium (135-144) mmol/L Sodium 148 H (136-145) mmol/L POC Potassium (3.3-5.0) mmol/L Potassium 3.8 (3.5-5.1) mmol/L Chloride 114 H (98-107) mmol/L Carbon Dioxide 30 (21-32) mmol/L Anion Gap 4 (3-11) BUN 32 H (6-23) mg/dl Creatinine 0.71 (0.6-1.4) mg/dl Est Cr Clr Drug Dosing 75.6 ml/min Est GFR ( Amer) 97.1 ml/min Est GFR (Non-Af Amer) 83.8 ml/min BUN/Creatinine Ratio 45.1 H (10-20) Glucose 86 (70-99(Fasting)) mg/dl POC Glucose 82 180 H (70-99) mg/dl POC Glucose (other) (70-99) mg/dl Calcium 8.1 L (8.6-10.3) mg/dl Phosphorus 2.5 (2.5-4.9) mg/dl Magnesium 2.0 (1.7-2.4) mg/dl Total Bilirubin (0.2-1.0) mg/dl AST (13-39) U/L ALT (7-52) U/L Alkaline Phosphatase (34-104) U/L Total Protein (6.0-8.3) gm/dl Albumin (3.4-5.0) gm/dl Globulin (2.5-4.0) gm/dl Albumin/Globulin Ratio (0.9-2) Procalcitonin (0-0.5) ng/ml 09/18/23 09/18/23 09/18/23 Range/Units 17:04 16:46 11:35 WBC (4.8-10.8) K/ul RBC (4.70-6.10) M/uL Hgb (14.0-18.0) g/dl POC Hgb (14.0-18.0) g/dl Hct (42.0-52.0) % POC Hct (42-52) % MCV (80.0-100.0) fL MCH (25.0-34.0) pg MCHC (32.0-36.0) g/dL RDW Std Deviation (36.4-46.3) fL RDW Coeff of Layo (11.5-14.5) % Plt Count (130-400) K/uL MPV (9.4-12.4) fL Immature Gran % (Auto) % Neut % (Auto) % Lymph % (Auto) % [place] % (Auto) % Eos % (Auto) % Baso % (Auto) % Neut # (Auto) (1.40-6.50) K/uL Lymph # (Auto) (1.20-3.40) K/uL [place] # (Auto) (0.11-0.59) K/uL Eos # (Auto) (0.00-0.50) K/uL Baso # (Auto) (0.00-0.20) K/uL Immature Gran # (Auto) (0.01-0.20) K/uL Absolute Nucleated RBC (0.00-0.12) K/uL Nucleated RBC % (auto) % Polychromasia Anisocytosis Target Cells Ovalocytes PT (9.0-12.0) Seconds INR (0.9-1.1) APTT (21-31) Seconds PTT Ratio Sample Site POC pH (7.35-7.45) POC pCO2 (35-46) mmHg POC pO2 (80-95) mmHg POC HCO3 (19-24) adelina/L POC Total CO2 (24-31) mmol/L POC Base Excess (-9-1.8) adelina/L ABG pH (Temp Correct) (7.35-7.45) ABG pCO2 (Temp Corrct (35-46) mmHg POC ABG pO2 at Pt Temp POC ABG O2 Sat (90-95) % Stan Test O2 Delivery Device POC O2 Rate POC FiO2 % Tidal Volume PEEP POC Sodium (135-144) mmol/L Sodium (136-145) mmol/L POC Potassium (3.3-5.0) mmol/L Potassium (3.5-5.1) mmol/L Chloride (98-107) mmol/L Carbon Dioxide (21-32) mmol/L Anion Gap (3-11) BUN (6-23) mg/dl Creatinine (0.6-1.4) mg/dl Est Cr Clr Drug Dosing ml/min Est GFR ( Amer) ml/min Est GFR (Non-Af Amer) ml/min BUN/Creatinine Ratio (10-20) Glucose (70-99(Fasting)) mg/dl POC Glucose 155 H 111 H (70-99) mg/dl POC Glucose (other) (70-99) mg/dl Calcium (8.6-10.3) mg/dl Phosphorus (2.5-4.9) mg/dl Magnesium (1.7-2.4) mg/dl Total Bilirubin (0.2-1.0) mg/dl AST (13-39) U/L ALT (7-52) U/L Alkaline Phosphatase (34-104) U/L Total Protein (6.0-8.3) gm/dl Albumin (3.4-5.0) gm/dl Globulin (2.5-4.0) gm/dl Albumin/Globulin Ratio (0.9-2) Procalcitonin 0.08 (0-0.5) ng/ml 09/18/23 09/18/23 09/17/23 Range/Units 06:59 05:35 20:14 WBC 7.83 (4.8-10.8) K/ul RBC 3.38 L (4.70-6.10) M/uL Hgb 9.8 L (14.0-18.0) g/dl POC Hgb (14.0-18.0) g/dl Hct 30.0 L (42.0-52.0) % POC Hct (42-52) % MCV 88.8 (80.0-100.0) fL MCH 29.0 (25.0-34.0) pg MCHC 32.7 (32.0-36.0) g/dL RDW Std Deviation 68.6 H (36.4-46.3) fL RDW Coeff of Layo 21.3 H (11.5-14.5) % Plt Count 127 L (130-400) K/uL MPV 12.3 (9.4-12.4) fL Immature Gran % (Auto) % Neut % (Auto) % Lymph % (Auto) % [place] % (Auto) % Eos % (Auto) % Baso % (Auto) % Neut # (Auto) (1.40-6.50) K/uL Lymph # (Auto) (1.20-3.40) K/uL [place] # (Auto) (0.11-0.59) K/uL Eos # (Auto) (0.00-0.50) K/uL Baso # (Auto) (0.00-0.20) K/uL Immature Gran # (Auto) (0.01-0.20) K/uL Absolute Nucleated RBC 0.03 (0.00-0.12) K/uL Nucleated RBC % (auto) 0.4 % Polychromasia Anisocytosis Target Cells Ovalocytes PT (9.0-12.0) Seconds INR (0.9-1.1) APTT 33 H (21-31) Seconds PTT Ratio 1.2 Sample Site POC pH (7.35-7.45) POC pCO2 (35-46) mmHg POC pO2 (80-95) mmHg POC HCO3 (19-24) adelina/L POC Total CO2 (24-31) mmol/L POC Base Excess (-9-1.8) adelina/L ABG pH (Temp Correct) (7.35-7.45) ABG pCO2 (Temp Corrct (35-46) mmHg POC ABG pO2 at Pt Temp POC ABG O2 Sat (90-95) % Stan Test O2 Delivery Device POC O2 Rate POC FiO2 % Tidal Volume PEEP POC Sodium (135-144) mmol/L Sodium 148 H (136-145) mmol/L POC Potassium (3.3-5.0) mmol/L Potassium 3.3 L (3.5-5.1) mmol/L Chloride 115 H (98-107) mmol/L Carbon Dioxide 28 (21-32) mmol/L Anion Gap 5 (3-11) BUN 37 H (6-23) mg/dl Creatinine 0.84 (0.6-1.4) mg/dl Est Cr Clr Drug Dosing 63.7 ml/min Est GFR ( Amer) 90.6 ml/min Est GFR (Non-Af Amer) 78.2 ml/min BUN/Creatinine Ratio 44.0 H (10-20) Glucose 97 (70-99(Fasting)) mg/dl POC Glucose 95 185 H (70-99) mg/dl POC Glucose (other) (70-99) mg/dl Calcium 7.9 L (8.6-10.3) mg/dl Phosphorus 2.1 L (2.5-4.9) mg/dl Magnesium 2.0 (1.7-2.4) mg/dl Total Bilirubin (0.2-1.0) mg/dl AST (13-39) U/L ALT (7-52) U/L Alkaline Phosphatase (34-104) U/L Total Protein (6.0-8.3) gm/dl Albumin (3.4-5.0) gm/dl Globulin (2.5-4.0) gm/dl Albumin/Globulin Ratio (0.9-2) Procalcitonin (0-0.5) ng/ml 09/17/23 09/17/23 09/17/23 Range/Units 16:21 11:15 07:23 WBC (4.8-10.8) K/ul RBC (4.70-6.10) M/uL Hgb (14.0-18.0) g/dl POC Hgb (14.0-18.0) g/dl Hct (42.0-52.0) % POC Hct (42-52) % MCV (80.0-100.0) fL MCH (25.0-34.0) pg MCHC (32.0-36.0) g/dL RDW Std Deviation (36.4-46.3) fL RDW Coeff of Layo (11.5-14.5) % Plt Count (130-400) K/uL MPV (9.4-12.4) fL Immature Gran % (Auto) % Neut % (Auto) % Lymph % (Auto) % [place] % (Auto) % Eos % (Auto) % Baso % (Auto) % Neut # (Auto) (1.40-6.50) K/uL Lymph # (Auto) (1.20-3.40) K/uL [place] # (Auto) (0.11-0.59) K/uL Eos # (Auto) (0.00-0.50) K/uL Baso # (Auto) (0.00-0.20) K/uL Immature Gran # (Auto) (0.01-0.20) K/uL Absolute Nucleated RBC (0.00-0.12) K/uL Nucleated RBC % (auto) % Polychromasia Anisocytosis Target Cells Ovalocytes PT (9.0-12.0) Seconds INR (0.9-1.1) APTT (21-31) Seconds PTT Ratio Sample Site POC pH (7.35-7.45) POC pCO2 (35-46) mmHg POC pO2 (80-95) mmHg POC HCO3 (19-24) adelina/L POC Total CO2 (24-31) mmol/L POC Base Excess (-9-1.8) adelina/L ABG pH (Temp Correct) (7.35-7.45) ABG pCO2 (Temp Corrct (35-46) mmHg POC ABG pO2 at Pt Temp POC ABG O2 Sat (90-95) % Stan Test O2 Delivery Device POC O2 Rate POC FiO2 % Tidal Volume PEEP POC Sodium (135-144) mmol/L Sodium (136-145) mmol/L POC Potassium (3.3-5.0) mmol/L Potassium (3.5-5.1) mmol/L Chloride (98-107) mmol/L Carbon Dioxide (21-32) mmol/L Anion Gap (3-11) BUN (6-23) mg/dl Creatinine (0.6-1.4) mg/dl Est Cr Clr Drug Dosing ml/min Est GFR ( Amer) ml/min Est GFR (Non-Af Amer) ml/min BUN/Creatinine Ratio (10-20) Glucose (70-99(Fasting)) mg/dl POC Glucose 222 H 192 H 168 H (70-99) mg/dl POC Glucose (other) (70-99) mg/dl Calcium (8.6-10.3) mg/dl Phosphorus (2.5-4.9) mg/dl Magnesium (1.7-2.4) mg/dl Total Bilirubin (0.2-1.0) mg/dl AST (13-39) U/L ALT (7-52) U/L Alkaline Phosphatase (34-104) U/L Total Protein (6.0-8.3) gm/dl Albumin (3.4-5.0) gm/dl Globulin (2.5-4.0) gm/dl Albumin/Globulin Ratio (0.9-2) Procalcitonin (0-0.5) ng/ml 09/17/23 09/16/23 09/16/23 Range/Units 06:11 20:30 16:14 WBC (4.8-10.8) K/ul RBC (4.70-6.10) M/uL Hgb (14.0-18.0) g/dl POC Hgb (14.0-18.0) g/dl Hct (42.0-52.0) % POC Hct (42-52) % MCV (80.0-100.0) fL MCH (25.0-34.0) pg MCHC (32.0-36.0) g/dL RDW Std Deviation (36.4-46.3) fL RDW Coeff of Layo (11.5-14.5) % Plt Count (130-400) K/uL MPV (9.4-12.4) fL Immature Gran % (Auto) % Neut % (Auto) % Lymph % (Auto) % [place] % (Auto) % Eos % (Auto) % Baso % (Auto) % Neut # (Auto) (1.40-6.50) K/uL Lymph # (Auto) (1.20-3.40) K/uL [place] # (Auto) (0.11-0.59) K/uL Eos # (Auto) (0.00-0.50) K/uL Baso # (Auto) (0.00-0.20) K/uL Immature Gran # (Auto) (0.01-0.20) K/uL Absolute Nucleated RBC (0.00-0.12) K/uL Nucleated RBC % (auto) % Polychromasia Anisocytosis Target Cells Ovalocytes PT (9.0-12.0) Seconds INR (0.9-1.1) APTT 34 H (21-31) Seconds PTT Ratio 1.3 Sample Site POC pH (7.35-7.45) POC pCO2 (35-46) mmHg POC pO2 (80-95) mmHg POC HCO3 (19-24) adelina/L POC Total CO2 (24-31) mmol/L POC Base Excess (-9-1.8) adelina/L ABG pH (Temp Correct) (7.35-7.45) ABG pCO2 (Temp Corrct (35-46) mmHg POC ABG pO2 at Pt Temp POC ABG O2 Sat (90-95) % Stan Test O2 Delivery Device POC O2 Rate POC FiO2 % Tidal Volume PEEP POC Sodium (135-144) mmol/L Sodium 145 (136-145) mmol/L POC Potassium (3.3-5.0) mmol/L Potassium 3.6 (3.5-5.1) mmol/L Chloride 109 H (98-107) mmol/L Carbon Dioxide 29 (21-32) mmol/L Anion Gap 7 (3-11) BUN 39 H (6-23) mg/dl Creatinine 0.88 (0.6-1.4) mg/dl Est Cr Clr Drug Dosing 63.0 ml/min Est GFR ( Amer) 88.9 ml/min Est GFR (Non-Af Amer) 76.7 ml/min BUN/Creatinine Ratio 44.3 H (10-20) Glucose 154 H (70-99(Fasting)) mg/dl POC Glucose 169 H 143 H (70-99) mg/dl POC Glucose (other) (70-99) mg/dl Calcium 8.2 L (8.6-10.3) mg/dl Phosphorus 2.3 L (2.5-4.9) mg/dl Magnesium 2.1 (1.7-2.4) mg/dl Total Bilirubin (0.2-1.0) mg/dl AST (13-39) U/L ALT (7-52) U/L Alkaline Phosphatase (34-104) U/L Total Protein (6.0-8.3) gm/dl Albumin (3.4-5.0) gm/dl Globulin (2.5-4.0) gm/dl Albumin/Globulin Ratio (0.9-2) Procalcitonin (0-0.5) ng/ml 09/16/23 09/16/23 09/16/23 Range/Units 12:07 04:37 00:28 WBC (4.8-10.8) K/ul RBC (4.70-6.10) M/uL Hgb (14.0-18.0) g/dl POC Hgb (14.0-18.0) g/dl Hct (42.0-52.0) % POC Hct (42-52) % MCV (80.0-100.0) fL MCH (25.0-34.0) pg MCHC (32.0-36.0) g/dL RDW Std Deviation (36.4-46.3) fL RDW Coeff of Layo (11.5-14.5) % Plt Count (130-400) K/uL MPV (9.4-12.4) fL Immature Gran % (Auto) % Neut % (Auto) % Lymph % (Auto) % [place] % (Auto) % Eos % (Auto) % Baso % (Auto) % Neut # (Auto) (1.40-6.50) K/uL Lymph # (Auto) (1.20-3.40) K/uL [place] # (Auto) (0.11-0.59) K/uL Eos # (Auto) (0.00-0.50) K/uL Baso # (Auto) (0.00-0.20) K/uL Immature Gran # (Auto) (0.01-0.20) K/uL Absolute Nucleated RBC (0.00-0.12) K/uL Nucleated RBC % (auto) % Polychromasia Anisocytosis Target Cells Ovalocytes PT (9.0-12.0) Seconds INR (0.9-1.1) APTT 37 H (21-31) Seconds PTT Ratio 1.4 Sample Site POC pH (7.35-7.45) POC pCO2 (35-46) mmHg POC pO2 (80-95) mmHg POC HCO3 (19-24) adelina/L POC Total CO2 (24-31) mmol/L POC Base Excess (-9-1.8) adelina/L ABG pH (Temp Correct) (7.35-7.45) ABG pCO2 (Temp Corrct (35-46) mmHg POC ABG pO2 at Pt Temp POC ABG O2 Sat (90-95) % Stan Test O2 Delivery Device POC O2 Rate POC FiO2 % Tidal Volume PEEP POC Sodium (135-144) mmol/L Sodium 145 (136-145) mmol/L POC Potassium (3.3-5.0) mmol/L Potassium 3.8 (3.5-5.1) mmol/L Chloride 111 H (98-107) mmol/L Carbon Dioxide 29 (21-32) mmol/L Anion Gap 5 (3-11) BUN 37 H (6-23) mg/dl Creatinine 0.84 (0.6-1.4) mg/dl Est Cr Clr Drug Dosing 66.7 ml/min Est GFR ( Amer) 90.6 ml/min Est GFR (Non-Af Amer) 78.2 ml/min BUN/Creatinine Ratio 44.0 H (10-20) Glucose 139 H (70-99(Fasting)) mg/dl POC Glucose 149 H 134 H (70-99) mg/dl POC Glucose (other) (70-99) mg/dl Calcium 8.1 L (8.6-10.3) mg/dl Phosphorus 2.9 (2.5-4.9) mg/dl Magnesium 2.0 (1.7-2.4) mg/dl Total Bilirubin (0.2-1.0) mg/dl AST (13-39) U/L ALT (7-52) U/L Alkaline Phosphatase (34-104) U/L Total Protein (6.0-8.3) gm/dl Albumin (3.4-5.0) gm/dl Globulin (2.5-4.0) gm/dl Albumin/Globulin Ratio (0.9-2) Procalcitonin (0-0.5) ng/ml 09/15/23 09/15/23 09/15/23 Range/Units 17:33 15:48 11:16 WBC (4.8-10.8) K/ul RBC (4.70-6.10) M/uL Hgb (14.0-18.0) g/dl POC Hgb (14.0-18.0) g/dl Hct (42.0-52.0) % POC Hct (42-52) % MCV (80.0-100.0) fL MCH (25.0-34.0) pg MCHC (32.0-36.0) g/dL RDW Std Deviation (36.4-46.3) fL RDW Coeff of Layo (11.5-14.5) % Plt Count (130-400) K/uL MPV (9.4-12.4) fL Immature Gran % (Auto) % Neut % (Auto) % Lymph % (Auto) % [place] % (Auto) % Eos % (Auto) % Baso % (Auto) % Neut # (Auto) (1.40-6.50) K/uL Lymph # (Auto) (1.20-3.40) K/uL [place] # (Auto) (0.11-0.59) K/uL Eos # (Auto) (0.00-0.50) K/uL Baso # (Auto) (0.00-0.20) K/uL Immature Gran # (Auto) (0.01-0.20) K/uL Absolute Nucleated RBC (0.00-0.12) K/uL Nucleated RBC % (auto) % Polychromasia Anisocytosis Target Cells Ovalocytes PT (9.0-12.0) Seconds INR (0.9-1.1) APTT (21-31) Seconds PTT Ratio Sample Site POC pH (7.35-7.45) POC pCO2 (35-46) mmHg POC pO2 (80-95) mmHg POC HCO3 (19-24) adelina/L POC Total CO2 (24-31) mmol/L POC Base Excess (-9-1.8) adelina/L ABG pH (Temp Correct) (7.35-7.45) ABG pCO2 (Temp Corrct (35-46) mmHg POC ABG pO2 at Pt Temp POC ABG O2 Sat (90-95) % Stan Test O2 Delivery Device POC O2 Rate POC FiO2 % Tidal Volume PEEP POC Sodium (135-144) mmol/L Sodium (136-145) mmol/L POC Potassium (3.3-5.0) mmol/L Potassium (3.5-5.1) mmol/L Chloride (98-107) mmol/L Carbon Dioxide (21-32) mmol/L Anion Gap (3-11) BUN (6-23) mg/dl Creatinine (0.6-1.4) mg/dl Est Cr Clr Drug Dosing ml/min Est GFR ( Amer) ml/min Est GFR (Non-Af Amer) ml/min BUN/Creatinine Ratio (10-20) Glucose (70-99(Fasting)) mg/dl POC Glucose 125 H 121 H 121 H (70-99) mg/dl POC Glucose (other) (70-99) mg/dl Calcium (8.6-10.3) mg/dl Phosphorus (2.5-4.9) mg/dl Magnesium (1.7-2.4) mg/dl Total Bilirubin (0.2-1.0) mg/dl AST (13-39) U/L ALT (7-52) U/L Alkaline Phosphatase (34-104) U/L Total Protein (6.0-8.3) gm/dl Albumin (3.4-5.0) gm/dl Globulin (2.5-4.0) gm/dl Albumin/Globulin Ratio (0.9-2) Procalcitonin (0-0.5) ng/ml 09/15/23 09/15/23 09/15/23 Range/Units 04:49 04:46 04:36 WBC 7.79 (4.8-10.8) K/ul RBC 3.24 L (4.70-6.10) M/uL Hgb 9.5 L (14.0-18.0) g/dl POC Hgb 10.9 L (14.0-18.0) g/dl Hct 28.4 L (42.0-52.0) % POC Hct 32 L (42-52) % MCV 87.7 (80.0-100.0) fL MCH 29.3 (25.0-34.0) pg MCHC 33.5 (32.0-36.0) g/dL RDW Std Deviation 66.4 H (36.4-46.3) fL RDW Coeff of Layo 21.0 H (11.5-14.5) % Plt Count 102 L (130-400) K/uL MPV 11.9 (9.4-12.4) fL Immature Gran % (Auto) % Neut % (Auto) % Lymph % (Auto) % [place] % (Auto) % Eos % (Auto) % Baso % (Auto) % Neut # (Auto) (1.40-6.50) K/uL Lymph # (Auto) (1.20-3.40) K/uL [place] # (Auto) (0.11-0.59) K/uL Eos # (Auto) (0.00-0.50) K/uL Baso # (Auto) (0.00-0.20) K/uL Immature Gran # (Auto) (0.01-0.20) K/uL Absolute Nucleated RBC 0.04 (0.00-0.12) K/uL Nucleated RBC % (auto) 0.5 % Polychromasia Anisocytosis Target Cells Ovalocytes PT (9.0-12.0) Seconds INR (0.9-1.1) APTT 39 H (21-31) Seconds PTT Ratio 1.4 Sample Site Art Line POC pH 7.43 (7.35-7.45) POC pCO2 38 (35-46) mmHg POC pO2 97 H (80-95) mmHg POC HCO3 25 H (19-24) adelina/L POC Total CO2 26 (24-31) mmol/L POC Base Excess 1.0 (-9-1.8) adelina/L ABG pH (Temp Correct) 7.438 (7.35-7.45) ABG pCO2 (Temp Corrct 37 (35-46) mmHg POC ABG pO2 at Pt Temp 93 POC ABG O2 Sat 98.0 H (90-95) % Stan Test NA O2 Delivery Device Ventilator POC O2 Rate 14 POC FiO2 35 % Tidal Volume 420 PEEP 5 POC Sodium 146 H (135-144) mmol/L Sodium 143 (136-145) mmol/L POC Potassium 4.1 (3.3-5.0) mmol/L Potassium 4.4 D (3.5-5.1) mmol/L Chloride 113 H (98-107) mmol/L Carbon Dioxide 26 (21-32) mmol/L Anion Gap 4 (3-11) BUN 33 H (6-23) mg/dl Creatinine 0.86 (0.6-1.4) mg/dl Est Cr Clr Drug Dosing 65.2 ml/min Est GFR ( Amer) 89.7 ml/min Est GFR (Non-Af Amer) 77.4 ml/min BUN/Creatinine Ratio 38.4 H (10-20) Glucose 154 H (70-99(Fasting)) mg/dl POC Glucose 155 H (70-99) mg/dl POC Glucose (other) (70-99) mg/dl Calcium 7.8 L (8.6-10.3) mg/dl Phosphorus 2.6 (2.5-4.9) mg/dl Magnesium 2.0 (1.7-2.4) mg/dl Total Bilirubin (0.2-1.0) mg/dl AST (13-39) U/L ALT (7-52) U/L Alkaline Phosphatase (34-104) U/L Total Protein (6.0-8.3) gm/dl Albumin (3.4-5.0) gm/dl Globulin (2.5-4.0) gm/dl Albumin/Globulin Ratio (0.9-2) Procalcitonin (0-0.5) ng/ml 09/14/23 09/14/23 09/14/23 Range/Units 23:53 21:54 18:28 WBC (4.8-10.8) K/ul RBC (4.70-6.10) M/uL Hgb (14.0-18.0) g/dl POC Hgb (14.0-18.0) g/dl Hct (42.0-52.0) % POC Hct (42-52) % MCV (80.0-100.0) fL MCH (25.0-34.0) pg MCHC (32.0-36.0) g/dL RDW Std Deviation (36.4-46.3) fL RDW Coeff of Layo (11.5-14.5) % Plt Count (130-400) K/uL MPV (9.4-12.4) fL Immature Gran % (Auto) % Neut % (Auto) % Lymph % (Auto) % [place] % (Auto) % Eos % (Auto) % Baso % (Auto) % Neut # (Auto) (1.40-6.50) K/uL Lymph # (Auto) (1.20-3.40) K/uL [place] # (Auto) (0.11-0.59) K/uL Eos # (Auto) (0.00-0.50) K/uL Baso # (Auto) (0.00-0.20) K/uL Immature Gran # (Auto) (0.01-0.20) K/uL Absolute Nucleated RBC (0.00-0.12) K/uL Nucleated RBC % (auto) % Polychromasia Anisocytosis Target Cells Ovalocytes PT (9.0-12.0) Seconds INR (0.9-1.1) APTT (21-31) Seconds PTT Ratio Sample Site POC pH (7.35-7.45) POC pCO2 (35-46) mmHg POC pO2 (80-95) mmHg POC HCO3 (19-24) adelina/L POC Total CO2 (24-31) mmol/L POC Base Excess (-9-1.8) adelina/L ABG pH (Temp Correct) (7.35-7.45) ABG pCO2 (Temp Corrct (35-46) mmHg POC ABG pO2 at Pt Temp POC ABG O2 Sat (90-95) % Stan Test O2 Delivery Device POC O2 Rate POC FiO2 % Tidal Volume PEEP POC Sodium (135-144) mmol/L Sodium 142 (136-145) mmol/L POC Potassium (3.3-5.0) mmol/L Potassium 3.4 L (3.5-5.1) mmol/L Chloride 112 H (98-107) mmol/L Carbon Dioxide 27 (21-32) mmol/L Anion Gap 3 (3-11) BUN 34 H (6-23) mg/dl Creatinine 0.89 (0.6-1.4) mg/dl Est Cr Clr Drug Dosing 63.0 ml/min Est GFR ( Amer) 88.5 ml/min Est GFR (Non-Af Amer) 76.3 ml/min BUN/Creatinine Ratio 38.2 H (10-20) Glucose 159 H (70-99(Fasting)) mg/dl POC Glucose 199 H (70-99) mg/dl POC Glucose (other) 153 H (70-99) mg/dl Calcium 7.8 L (8.6-10.3) mg/dl Phosphorus 2.1 L (2.5-4.9) mg/dl Magnesium 2.1 (1.7-2.4) mg/dl Total Bilirubin (0.2-1.0) mg/dl AST (13-39) U/L ALT (7-52) U/L Alkaline Phosphatase (34-104) U/L Total Protein (6.0-8.3) gm/dl Albumin (3.4-5.0) gm/dl Globulin (2.5-4.0) gm/dl Albumin/Globulin Ratio (0.9-2) Procalcitonin (0-0.5) ng/ml 09/14/23 09/14/23 09/14/23 Range/Units 11:37 06:19 04:38 WBC 8.78 (4.8-10.8) K/ul RBC 3.27 L (4.70-6.10) M/uL Hgb 9.4 L (14.0-18.0) g/dl POC Hgb (14.0-18.0) g/dl Hct 29.3 L (42.0-52.0) % POC Hct (42-52) % MCV 89.6 (80.0-100.0) fL MCH 28.7 (25.0-34.0) pg MCHC 32.1 (32.0-36.0) g/dL RDW Std Deviation 67.8 H (36.4-46.3) fL RDW Coeff of Layo 21.3 H (11.5-14.5) % Plt Count 96 L (130-400) K/uL MPV 12.0 (9.4-12.4) fL Immature Gran % (Auto) 1.0 % Neut % (Auto) 82.9 % Lymph % (Auto) 8.7 % [place] % (Auto) 7.3 % Eos % (Auto) 0.0 % Baso % (Auto) 0.1 % Neut # (Auto) 7.28 H (1.40-6.50) K/uL Lymph # (Auto) 0.76 L (1.20-3.40) K/uL [place] # (Auto) 0.64 H (0.11-0.59) K/uL Eos # (Auto) 0.00 (0.00-0.50) K/uL Baso # (Auto) 0.01 (0.00-0.20) K/uL Immature Gran # (Auto) 0.09 (0.01-0.20) K/uL Absolute Nucleated RBC 0.04 (0.00-0.12) K/uL Nucleated RBC % (auto) 0.5 % Polychromasia 1+ Anisocytosis Present Target Cells Ovalocytes 1+ PT 15.8 H (9.0-12.0) Seconds INR 1.5 H (0.9-1.1) APTT (21-31) Seconds PTT Ratio Sample Site POC pH (7.35-7.45) POC pCO2 (35-46) mmHg POC pO2 (80-95) mmHg POC HCO3 (19-24) adelina/L POC Total CO2 (24-31) mmol/L POC Base Excess (-9-1.8) adelina/L ABG pH (Temp Correct) (7.35-7.45) ABG pCO2 (Temp Corrct (35-46) mmHg POC ABG pO2 at Pt Temp POC ABG O2 Sat (90-95) % Stan Test O2 Delivery Device POC O2 Rate POC FiO2 % Tidal Volume PEEP POC Sodium (135-144) mmol/L Sodium 141 (136-145) mmol/L POC Potassium (3.3-5.0) mmol/L Potassium 3.4 L (3.5-5.1) mmol/L Chloride 111 H (98-107) mmol/L Carbon Dioxide 25 (21-32) mmol/L Anion Gap 5 (3-11) BUN 36 H (6-23) mg/dl Creatinine 1.01 (0.6-1.4) mg/dl Est Cr Clr Drug Dosing 55.5 ml/min Est GFR ( Amer) 76.6 ml/min Est GFR (Non-Af Amer) 66.1 ml/min BUN/Creatinine Ratio 35.6 H (10-20) Glucose 177 H (70-99(Fasting)) mg/dl POC Glucose (70-99) mg/dl POC Glucose (other) 181 H 183 H (70-99) mg/dl Calcium 8.0 L (8.6-10.3) mg/dl Phosphorus 2.3 L (2.5-4.9) mg/dl Magnesium 2.0 (1.7-2.4) mg/dl Total Bilirubin 1.2 H (0.2-1.0) mg/dl AST 95 H (13-39) U/L ALT 66 H (7-52) U/L Alkaline Phosphatase 80 (34-104) U/L Total Protein 5.4 L (6.0-8.3) gm/dl Albumin 2.4 L (3.4-5.0) gm/dl Globulin 3.0 (2.5-4.0) gm/dl Albumin/Globulin Ratio 0.8 L (0.9-2) Procalcitonin (0-0.5) ng/ml 09/14/23 09/13/23 09/13/23 Range/Units 00:17 18:23 12:28 WBC (4.8-10.8) K/ul RBC (4.70-6.10) M/uL Hgb (14.0-18.0) g/dl POC Hgb (14.0-18.0) g/dl Hct (42.0-52.0) % POC Hct (42-52) % MCV (80.0-100.0) fL MCH (25.0-34.0) pg MCHC (32.0-36.0) g/dL RDW Std Deviation (36.4-46.3) fL RDW Coeff of Layo (11.5-14.5) % Plt Count (130-400) K/uL MPV (9.4-12.4) fL Immature Gran % (Auto) % Neut % (Auto) % Lymph % (Auto) % [place] % (Auto) % Eos % (Auto) % Baso % (Auto) % Neut # (Auto) (1.40-6.50) K/uL Lymph # (Auto) (1.20-3.40) K/uL [place] # (Auto) (0.11-0.59) K/uL Eos # (Auto) (0.00-0.50) K/uL Baso # (Auto) (0.00-0.20) K/uL Immature Gran # (Auto) (0.01-0.20) K/uL Absolute Nucleated RBC (0.00-0.12) K/uL Nucleated RBC % (auto) % Polychromasia Anisocytosis Target Cells Ovalocytes PT (9.0-12.0) Seconds INR (0.9-1.1) APTT (21-31) Seconds PTT Ratio Sample Site POC pH (7.35-7.45) POC pCO2 (35-46) mmHg POC pO2 (80-95) mmHg POC HCO3 (19-24) adelina/L POC Total CO2 (24-31) mmol/L POC Base Excess (-9-1.8) adelina/L ABG pH (Temp Correct) (7.35-7.45) ABG pCO2 (Temp Corrct (35-46) mmHg POC ABG pO2 at Pt Temp POC ABG O2 Sat (90-95) % Stan Test O2 Delivery Device POC O2 Rate POC FiO2 % Tidal Volume PEEP POC Sodium (135-144) mmol/L Sodium (136-145) mmol/L POC Potassium (3.3-5.0) mmol/L Potassium (3.5-5.1) mmol/L Chloride (98-107) mmol/L Carbon Dioxide (21-32) mmol/L Anion Gap (3-11) BUN (6-23) mg/dl Creatinine (0.6-1.4) mg/dl Est Cr Clr Drug Dosing ml/min Est GFR ( Amer) ml/min Est GFR (Non-Af Amer) ml/min BUN/Creatinine Ratio (10-20) Glucose (70-99(Fasting)) mg/dl POC Glucose (70-99) mg/dl POC Glucose (other) 175 H 169 H 159 H (70-99) mg/dl Calcium (8.6-10.3) mg/dl Phosphorus (2.5-4.9) mg/dl Magnesium (1.7-2.4) mg/dl Total Bilirubin (0.2-1.0) mg/dl AST (13-39) U/L ALT (7-52) U/L Alkaline Phosphatase (34-104) U/L Total Protein (6.0-8.3) gm/dl Albumin (3.4-5.0) gm/dl Globulin (2.5-4.0) gm/dl Albumin/Globulin Ratio (0.9-2) Procalcitonin (0-0.5) ng/ml Diagnostic Findings Chest X-Ray 09/10/23 23:10 SINGLE VIEW CHEST CLINICAL HISTORY: Sepsis. FINDINGS: 2 AP, portable, upright chest radiographs are compared to study dated 02/10/2023. The examination is severely degraded by portable technique and patient rotation. The patient's had largely obscures the apices. The patient is status post midline sternotomy. A 2-lead cardiac pacemaker is unchanged in position. The heart is enlarged. The pulmonary vasculature is not congested. There are layering pleural effusions. Airspace consolidation is seen at the left lung base. Foci of parenchymal scarring are seen in the right upper lung. No pneumothorax is seen. The skeletal structures are osteopenic. Advanced arthritic change is noted in the shoulders. There are chronic/healed right-sided rib fractures.. IMPRESSION: 1. Cardiomegaly and cardiac pacemaker without radiographic evidence of congestive failure. 2. Left basilar consolidation is typical for pneumonia/aspiration pneumonitis. Clinical correlation will be required and radiographic follow-up to resolution is recommend. 3. Layering pleural effusions. ACT 112: Negative or not required by law. Electronically signed by: Gee aDwson M.D. 09/11/2023 8:[address] 09/11/23 02:01 Exam(s): CT CHEST W/WO Contrast IV Amt: 93 cc's optiray 320 EXAM: CT Chest Without and With Intravenous Contrast CLINICAL HISTORY: Reason for exam: apnea. TECHNIQUE: Axial computed tomography images of the chest without and with intravenous contrast. Automated exposure control was utilized for the study. A dose lowering technique was utilized adhering to the principles of ALARA. CONTRAST: Patient received 93 cc's optiray 320 of IV contrast COMPARISON: No relevant prior studies available. FINDINGS: Lungs: Dependent airspace consolidations, preferentially involving the RIGHT middle lobe and LEFT lower lobe, consistent with aspiration pneumonia. No mass. Pleural space: Small bilateral parapneumonic effusions. Heart: Unremarkable. No cardiomegaly. No significant pericardial effusion. No significant coronary artery calcifications. Bones/joints: Degenerative changes of the spine. Soft tissues: Unremarkable. Vasculature: Atherosclerotic changes of the aorta. No thoracic aortic aneurysm. Lymph nodes: Unremarkable. No enlarged lymph nodes. Tubes, lines and devices: Endotracheal tube terminates in the trachea. Feeding tube terminates in the stomach. IMPRESSION: 1. Dependent airspace consolidations, preferentially involving the RIGHT middle lobe and LEFT lower lobe, consistent with aspiration pneumonia. 2. Small bilateral parapneumonic effusions. 3. Endotracheal tube terminates in the trachea. Electronically signed by: Jacinto Linda MD 09/11/23 05:[address] 09/11/23 02:01 Exam(s): CT HEAD Without Contrast EXAM: CT Head Without Intravenous Contrast CLINICAL HISTORY: Reason for exam: ams. TECHNIQUE: Axial computed tomography images of the head/brain without intravenous contrast. Automated exposure control was utilized for the study. A dose lowering technique was utilized adhering to the principles of ALARA. COMPARISON: No relevant prior studies available. FINDINGS: No acute intracranial hemorrhage. No midline shift or mass effect. The territorial perez-white matter differentiation is maintained throughout. Age-related cerebral volume loss. Periventricular and subcortical white matter hypoattenuation, consistent with chronic microangiopathy. The visualized orbits appear grossly unremarkable. The calvarium is intact. Paranasal sinus mucosal thickening. IMPRESSION: No acute intracranial hemorrhage, midline shift, or mass effect. Electronically signed by: Jacinto Linda MD 09/11/23 04:04 AM Chest X-Ray 09/11/23 02:20 SINGLE VIEW CHEST CLINICAL HISTORY: Respiratory failure. Intubation. FINDINGS: 2 AP, portable, supine chest radiographs are compared to study dated 09/10/2023. The examination is degraded by portable technique and patient rotation. The patient is status post midline sternotomy. A 2-lead cardiac pacemaker is unchanged in position. An endotracheal tube has been placed. The tip projects approximately 2 cm above the jayla. The heart is enlarged. The pulmonary vasculature is noncongested. There are layering pleural effusions. Airspace consolidation is seen at the left lung base. There are also airspace opacities at the right apex. No pneumothorax is seen. The skeletal structures are osteopenic. Advanced arthritic change is noted in the shoulders. There are chronic/healed right-sided rib fractures. IMPRESSION: 1. An endotracheal tube has been placed as above. 2. Cardiomegaly and cardiac pacemaker without radiographic evidence of congestive failure. 3. Left basilar consolidation is typical for pneumonia/aspiration pneumonitis. There are also airspace opacities in the right upper lung. Radiographic follow- up to resolution is recommend. 4. Layering pleural effusions. ACT 112: Negative or not required by law. Electronically signed by: Gee Dawson M.D. 09/11/2023 8:11 AM Chest X-Ray 09/11/23 02:49 SINGLE VIEW CHEST CLINICAL HISTORY: Line and tube placement. FINDINGS: 2 AP, portable, supine chest radiographs are compared to study performed earlier the same day 09/11/2023. The examination is severely degraded by portable technique and patient rotation. The patient is status post midline sternotomy. A 2-lead cardiac pacemaker is unchanged in position. An endotracheal tube is unchanged in position. An enteric tube has been placed. The tip projects below the diaphragm over the proximal stomach. A right internal jugular central venous catheter has been placed. The tip projects over the SVC. The heart is enlarged. The pulmonary vasculature is noncongested. There are layering pleural effusions. Airspace consolidation is seen at the left lung base. There are also airspace opacities at the right apex. No pneumothorax is seen. The skeletal structures are osteopenic. Advanced arthritic change is noted in the shoulders. There are chronic/healed right-sided rib fractures. IMPRESSION: 1. Line and tube placement as above. No pneumothorax is identified. 2. Cardiomegaly and cardiac pacemaker without radiographic evidence of congestive failure. 3. Left basilar consolidation is typical for pneumonia/aspiration pneumonitis. There are also airspace opacities in the right upper lung. Radiographic follow- up to resolution is recommend. 4. Layering pleural effusions. ACT 112: Negative or not required by law. Electronically signed by: Gee Dawson M.D. 09/11/2023 8:12 AM Abdomen Ultrasound 09/11/23 05:05 ULTRASOUND RIGHT UPPER QUADRANT ABDOMEN CLINICAL HISTORY: Elevated bilirubin levels. COMPARISON STUDY: Abdominal CT dated 07/25/2021 TECHNIQUE: Real-time, grayscale, and color flow sonography of the right upper quadrant of the abdomen was performed. Images are reviewed in the transverse and longitudinal planes. FINDINGS: Liver: The liver is cirrhotic in morphology and heterogeneous in echotexture. There is nodularity of the hepatic surface contour. There is no intrahepatic biliary ductal dilatation. The main portal vein is patent. Gallbladder: The gallbladder is mildly distended and contains biliary sludge. There is nonspecific gallbladder wall thickening which measures up to 3 mm. There is pericholecystic fluid/ascites. A sonographic Valenzuela's sign could not be assessed. The common bile duct measures up to 0.3 cm in diameter. Pancreas: Visualized portions of the pancreatic head are normal in appearance. The majority of pancreas is obscured by overlying bowel gas. Right kidney: Survey images of the right kidney demonstrate normal size and echotexture. There is no hydronephrosis. There is a 1.6 cm shadowing calculus in the renal pelvis. A 3.2 cm cyst is seen in the upper pole. Ascites: There is a small volume of perihepatic ascites. IMPRESSION: 1. The liver is cirrhotic in morphology and heterogeneous in echotexture. 2. Small volume abdominal ascites. 3. The gallbladder is mildly distended and contains biliary sludge. Gallbladder wall thickening is nonspecific comment likely related to adjacent hepatocellular disease and ascites. The sonographic Valenzuela's sign could not be assessed. Findings are not highly suspicious for acute cholecystitis but this is difficult to evaluate. If there is strong clinical concern for acute cholecystitis a nuclear hepatobiliary scan should be considered. 4. Right-sided nephrolithiasis. ACT 112: Negative or not required by law. Electronically signed by: Gee Dawson M.D. 09/11/2023 7:09 AM Chest X-Ray 09/12/23 06:00 XR chest 1V portable CLINICAL HISTORY: eval lung brady, lines and tubes, while intubated COMPARISON STUDY: Chest radiograph and chest CT September 11, 2023. FINDINGS: Tip of endotracheal tube is 2.8 cm above the jayla. Tip of nasogast ashley tube is within the body of the stomach. Right internal jugular central line remains in place. There is no pneumothorax. There are median sternotomy wires and a left subclavian pacer. Small bilateral pleural effusions and bibasilar opacities have increased. Mild interstitial thickening is also increased. IMPRESSION: 1. Satisfactory positioning of lines and tubes. 2. Increase in small bilateral pleural effusions and associated bibasilar opacities which favor pneumonia or aspiration pneumonitis. 3. Increase in interstitial thickening suggestive of mild pulmonary edema. ACT 112: Negative or not required by law. Electronically signed by: Bay Moctezuma M.D. 09/12/2023 7:10 AM Chest X-Ray 09/13/23 06:00 XR chest 1V portable HISTORY: 88 years-old Male eval lung brady, lines and tubes, while intubated acute respiratory failure COMPARISON: 09/12/2023 TECHNIQUE: AP view of the chest FINDINGS: Endotracheal tube overlies the midline, approximately 4.8 cm superior to the jayla. Median sternotomy. Numerous telemetry leads are coiled over the chest. Right IJ catheter distal tip is noted within the expected location of the superi or cavoatrial junction.. Distal tip of enteric tube projects over the-body. Left subclavian pacer. No pneumothorax. Cardiomegaly with pulmonary vascular congestion and interstitial coarsening. No pneumothorax. Small right greater than left pleural effusions with bibasilar opacities. Degenerative changes of the shoulders and spine. Chronic right proximal humeral deformity. IMPRESSION: 1. Cardiomegaly with pulmonary edema. 2. Layering pleural effusions with right greater than left bibasilar consolidation. 3. Lines and tubes as above. ACT 112: Negative or not required by law. The above report was generated using voice recognition software. It may contain grammatical, syntax or spelling errors. Electronically signed by: Kevin Light M.D. 09/13/2023 7:51 AM Chest X-Ray 09/14/23 07:00 XR chest 1V portable CLINICAL HISTORY: Respiratory failure. COMPARISON STUDY: Chest CT September 11, 2023. Chest radiograph September 13, 2023. FINDINGS: Tip of endotracheal tube is 2.9 cm above the jayla. Tip of nasogastric tube is within the body of the stomach. Right internal jugular central line remains in place. There are median sternotomy wires. Left subclavian pacer is in place. Cardiomegaly is again noted. There is no pneumothorax. Interstitial thickening persists. There are persistent small bilateral pleural effusions with associated bibasilar opacities. Left lower lung opacity has increased. IMPRESSION: 1. Satisfactory positioning of lines and tubes. 2. Cardiomegaly with persistent pulmonary edema. 3. Small bilateral pleural effusions with associated bibasilar opacities. Left basilar opacity has increased since prior exam. ACT 112: Negative or not required by law. Electronically signed by: Bay Moctezuma M.D. 09/14/2023 8:22 AM Chest X-Ray 09/15/23 07:00 XR chest 1V portable CLINICAL HISTORY: Respiratory failure. COMPARISON STUDY: Chest CT September 11, 2023. Chest radiograph September 14, 2023. FINDINGS: The tip of the endotracheal tube is 3.3 cm above the jayla. Tip of nasogastric tube is within the body of the stomach. Right internal jugular central line remains in place. There is a dual-lead left subclavian pacer and median sternotomy wires. Cardiomegaly is again noted. There is no pneumothorax. Small bilateral pleural effusions with extensive bibasilar opacities persist. Interstitial thickening is similar to prior exam. IMPRESSION: 1. Satisfactory positioning of lines and tubes. 2. Cardiomegaly with persistent pulmonary edema. 2. No change in small bilateral pleural effusions with extensive bibasilar opacities. ACT 112: Negative or not required by law. Electronically signed by: Bya Moctezuma M.D. 09/15/2023 7:02 AM PG Care Time/CCT Total # of Minutes Spent Total Time Spent: 60 Total Time Spent with Patient: Total time spent is greater than 50% in coordination of care (as documented) at patient's floor/unit and/or counseling patient: Advanced Care Planning 18608 Advanced Care Planning 30 Min [place] [address] SUB INP/OBS CARE 2/35MIN (25 - SIGNIFICANT, SEPARATELY IDENTIFIABLE ) Patient Type Established Medical Decision Making High Complexity Diagnoses Weakness generalized R53.1 Altered mental status R41.82 Discussion about advance care planning held with family member Z71.0 Palliative care by specialist Z51.5 Additional Codes Advanced Care Planning - 36818 Advanced Care Planning 30 Min: 96027 Advanced Care Planning 30 Min ([id number])
--- NOTE | 2023-09-20 17:26 | Hospitalist Progress Note ---
Date of Service September 20, 2023 Assessment & Plan (1) Sepsis: Plan: Sepsis now resolved initially the patient presented as leukopenic, hypothermic, hypotensive. Metabolic encephalopahty with sepsis, Etiology of sepsis unclear. Likely multifactorial with dehydration, poor PO intake, probable infection, adrenal insufficiency, and poor reserves. initially intubated resusitated and required vasopressor support, improved and eventually extubated 09/14-Given advanced dementia, possible poor quality of life, consulted palliative care. Ammonia 24. Random cortisol - 9.87. TSH 8.41. Inadequate response to acute stressor. Started on empiric abx. complete 7 day course blood cultures negative to date MRSA nares and BioFire pending, Utox ordered started on cefepime and empiric vanc stress dose steroids now begin tapering doses of prednisone p.o. Consulted speech therapy, now tolerating diet. Needs thickened liquids. Oral intake has been challenging. Family updated on 09/19 (2) Adrenal insufficiency: Plan: Insufficient cortisol response to stressor. Start hydrocortisone 100 mg now with 50 mg Q6H after. Transition oral prednisone on 09/19 tapering dose (3) Elevated troponin I level: Plan: Peaked 22.4. Likely demand ischemia (4) Hypernatremia: Plan: Mild hypernatremia. Continue to monitor. Placed on IVF on 09/18. 1/2 nss (5) Severe dementia: Plan: Hold home dementia medications (6) CAD (coronary artery disease): Plan: s/p CABG x 4. Hold home metoprolol, statin, ASA Plan Code status:conditional code Discharge canceled due to hyponatremia patient's oral intake is modest, talking about IV fluids however this is not a long-term solution she understands that Admission and Anticipated Discharge Date Admission Date: September 11, 2023 Subjective is at the bedside patient is fairly hunched over neck is bent forward patient's states his neck is in his head are always stooped forward patient would not respond but would moan at times when examined. Patient's believes the patient was more vibrant and alert on 09/18. Discharge was this was held due to sodium being elevated which makes me fearful he is not having adequate oral intake with his thickened liquids. I did point out to the that he is unable to take oral intake reliably such that his sodium is elevated this is a poor prognostic sign. Despite that fact she amended her POLST form to state that the patient always would want antibiotics to be treated in any situation. I do believe the is optimistic however given his now 8-day stay post sepsis with poor improvement he is at high risk for aspiration dehydration and other medical comorbidities due to to his critical care myopathy and likely decline in status from his prehospital state which was wheelchair-bound Physical Exam Physical Exam: Patient will mumble but not answer questions he is drooling when asleep He is hunched over and supported by pillows Marked decreased breath sounds at the bases Card exam is distant but regular Abdomen NABS soft nontender Left hand has a rash bonnet Results & Data Results & Data Vital Signs (Past 12 Hours) Vital Signs Temp Pulse Pulse Pulse Resp BP BP 09/20/23 16:45 09/20/23 16:00 98.2 F 60 18 115/64 09/20/23 14:00 60 09/20/23 13:10 09/20/23 12:36 63 09/20/23 11:33 96.8 F L 69 18 115/69 09/20/23 08:00 09/20/23 07:32 98.1 F 65 16 164/113 H 09/20/23 07:29 60 Pulse Ox O2 Del Method 09/20/23 16:45 Room Air 09/20/23 16:00 97 Room Air 09/20/23 14:00 09/20/23 13:10 Room Air 09/20/23 12:36 09/20/23 11:33 93 Room Air 09/20/23 08:00 Room Air 09/20/23 07:32 91 Room Air 09/20/23 07:29 Laboratory Results Reviewed chemistry reviewed coagulation studies PG Care Time/CCT Total # of Minutes Spent Total Time Spent with Patient: Total time spent is greater than 50% in coordination of care (as documented) at patient's floor/unit and/or counseling patient: Coding Level of Care Code 00789 SUB INP/OBS CARE 3/50MIN Diagnoses Sepsis A41.9 Adrenal insufficiency E27.40 Elevated troponin I level R79.89 Hypernatremia E87.0 Severe dementia F03.C0 Coronary artery disease involving coronary bypass graft of [place] heart without angina pectoris I25.810 Coronary Disease-Associated Artery/Lesion type: bypass graft [place] vs. transplanted heart: [place] heart Associated angina: without angina (6) CAD (coronary artery disease) Coronary Disease-Associated Artery/Lesion type: bypass graft [place] vs. transplanted heart: [place] heart Associated angina: without angina Qualified Code(s): I25.810 - Atherosclerosis of coronary artery bypass graft(s) without angina pectoris
[2023-09-20] MEDS: MUPIROCIN 2% OINT 22 GM TUBE EXT SCH (21:26)
[2023-09-21 08:16] LABS: BUN Creatinine Ratio 43.5 (10-20); C Reactive Protein 5.38 mg/dl (0-0.5); Calcium 7.7 mg/dl (8.6-10.3); Creatinine Clr Calc Pharmacy 90.4 ml/min; Est GFR (African American) 102.7 ml/min; Est GFR (Non-African American) 88.6 ml/min; Potassium 3.8 mmol/L (3.5-5.1)
--- NOTE | 2023-09-21 15:51 | Discharge Summary ---
Discharge Summary Date of Service September 21, 2023 Principal Dx & Hospital Course #1 = Principal Diagnosis (1) Sepsis: Sepsis now resolved initially the patient presented as leukopenic, hypothermic, hypotensive. Metabolic encephalopahty with sepsis, Etiology of sepsis unclear. Likely multifactorial with dehydration, poor PO intake, probable infection, adrenal insufficiency, and poor reserves. initially intubated resusitated and required vasopressor support, improved and eventually extubated 09/14-Given advanced dementia, possible poor quality of life, consulted palliative care. Ammonia 24. Random cortisol - 9.87. TSH 8.41. Inadequate response to acute stressor. Started on empiric abx. complete 7 day course blood cultures negative to date MRSA nares and BioFire pending, Utox ordered started on cefepime and empiric vanc stress dose steroids now begin tapering doses of prednisone p.o. Consulted speech therapy, now tolerating diet. Needs thickened liquids. Oral intake has been challenging. Family updated on 09/19 (2) Adrenal insufficiency: Insufficient cortisol response to stressor. Start hydrocortisone 100 mg now with 50 mg Q6H after. Transition oral prednisone on 09/19 tapering dose (3) Elevated troponin I level: Peaked 22.4. Likely demand ischemia (4) Hypernatremia: Improved after IV hydration with half-normal saline (5) Severe dementia: Resume home dementia medications if able to take p.o. (6) CAD (coronary artery disease): s/p CABG x 4. Resume meds if able to take p.o. Plan Code status:conditional code At time of discharge I personally called Tam[facility] and spoke to their caregiver there understanding the challenges with this patient's lack of improvement post sepsis. patient has a high likelihood that he will need to be readmitted as he will not be able to sustain oral nutrition to keep his hydration up. His family at this point has been resistant to advancement of comfort care measures however I am pessimistic that he will improve Notes For Next Care Provider Patient is a high readmission risk likely for dehydration or aspiration. His is aware of this as he did not appear to be assisting his homeostasis with oral intake of thickened liquids. 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 present at bedside provides the entirety of the history. Patient with thick mucous/cold like symptoms about 3 days ago. Has been more tired and PO intake has been minimal. Patient was found to be hypotensive [place] 80s [place] [facility] [place]. Patient was also hypothermic at that time. Patient was started on cefepime and IVF in the ED for presumed sepsis. Blood cultures drawn. UA concentrated without signs of infection. CXR a difficult read due to rotation. Started on Sean hugger for T 32.7 C. Initially placed orders for PCU/Tele status as MAPs > 70 and patient awake. Was called to C10 multiple times by ED nursing. Patient with witnessed apnea. Patient with hypotension. He was started on vasoactive agents for BP support. Decision was made to intubate patient as he was not protecting his airway. Confirmed code status with . Discussed case with Joce Waggoner QUOTER on the [employer] service. ETT, central line, and OGT placed. Patient moved to the ICU. Discharge Exam Patient moans he is in a curled up head forward position at this time he is in no significant respiratory distress Updated Medication List Medication Instructions Recorded Confirmed Type acetaminophen 325 mg tablet 650 mg PO Q4 PRN Fever Or Pain 02/09/23 09/11/23 History (Tylenol) aspirin 81 mg chewable tablet 81 mg PO QAM 02/09/23 09/11/23 History docusate sodium 100 mg tablet 100 mg PO Q24H PRN 02/09/23 09/11/23 History Constipation-GIVE ON DAY 2 IN NO BM doxazosin 1 mg tablet 1 mg PO HS 02/09/23 09/11/23 History escitalopram oxalate 10 mg tablet 15 mg PO QAM 02/09/23 09/11/23 History levothyroxine 50 mcg tablet 50 mcg PO QAM 02/09/23 09/11/23 History nitroglycerin 0.4 mg sublingual 0.4 mg sublingual DIRECTED PRN 02/09/23 09/11/23 History tablet Chest Pain sodium chloride 0.65 % nasal spray 2 spray NA Q2H PRN DRY 09/11/23 09/11/23 History aerosol (Saline Mist) NOSE/EPISTAXIS insulin aspart U-100 100 unit/mL 1 sliding scale dose SC ACHS #10 mL 09/21/23 Rx subcutaneous solution (Novolog U-100 Insulin aspart) prednisone 5 mg tablet 5 mg PO DIRECTED #40 tabs 09/21/23 Rx Hospital Stay Data Consultations 09/11/23 00:35 ED Decision to Admit Stat 09/11/23 01:51 Consult Small Business Banking Officer Stat 09/11/23 02:53 Consult [employer] Business [employer]ing Officer Routine 09/11/23 09:42 Consult General Surgery Routine 09/15/23 13:20 Consult Palliative Care Routine Diagnostic Imagining Performed 09/11/23 02:01 CT chest diagnostic wo/w con Stat CT head/brain wo con Stat 09/11/23 05:05 US abdomen limited Routine Pending Results Patient Have Any Pending Studies at Discharge: No Discharge Instructions Given to Patient (Per Discharging Provider) pt with severe sepsis, source never identified, completed a week of antibiotics and improved, 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 Coding Level of Care Code 02862 INP/OBS DISCH >30 MIN Diagnoses Sepsis A41.9 Adrenal insufficiency E27.40 Elevated troponin I level R79.89 Hypernatremia E87.0 Severe dementia F03.C0 Coronary artery disease involving coronary bypass graft of [place] heart without angina pectoris I25.810 Coronary Disease-Associated Artery/Lesion type: bypass graft [place] vs. transplanted heart: [place] heart Associated angina: without angina
== END 2023-09-21 11:15 | DRG 870 ==
LOC: ED 22:41 → 1E 09-11 01:29 → SUATTDRO 09-11 01:29 → 1E 09-11 03:09 → 2S 09-16 13:34 → 2N 09-20 12:41
DX: N17.9 Acute kidney failure, unspecified; I12.9 Hypertensive chronic kidney disease with stage 1 through stage 4 chronic kidney disease, or unspecified chronic kidney disease; G93.41 Metabolic encephalopathy; J18.1 Lobar pneumonia, unspecified organism; D63.8 Anemia in other chronic diseases classified elsewhere; E03.9 Hypothyroidism, unspecified; J96.01 Acute respiratory failure with hypoxia; D61.818 Other pancytopenia; I44.1 Atrioventricular block, second degree; R65.21 Severe sepsis with septic shock; Z79.899 Other long term (current) drug therapy; I48.0 Paroxysmal atrial fibrillation; N40.0 Benign prostatic hyperplasia without lower urinary tract symptoms; G72.81 Critical illness myopathy; E87.0 Hyperosmolality and hypernatremia; A41.9 Sepsis, unspecified organism; Z11.52 Encounter for screening for COVID-19; I95.9 Hypotension, unspecified; E27.40 Unspecified adrenocortical insufficiency; Z95.0 Presence of cardiac pacemaker; F03.C0 Unspecified dementia, severe, without behavioral disturbance, psychotic disturbance, mood disturbance, and anxiety; K82.8 Other specified diseases of gallbladder; D69.6 Thrombocytopenia, unspecified; I25.10 Atherosclerotic heart disease of native coronary artery without angina pectoris; I24.89 Other forms of acute ischemic heart disease; Z95.1 Presence of aortocoronary bypass graft; N18.30 Chronic kidney disease, stage 3 unspecified

== ENCOUNTER 2024-02-14 02:27 | Inpatient (IN) ==
[2024-02-14 03:25] LABS: Basophils # (auto) 0.04 K/uL (0.00-0.20); Basophils % (auto) 0.4 %; Eosinophils # (auto) 0.11 K/uL (0.00-0.50); Hematocrit (blood only) 28.6 % (42.0-52.0); Hemoglobin 8.9 g/dl (14.0-18.0); Immature Granulocytes # (auto) 0.06 K/uL (0.01-0.20); Immature Granulocytes % (auto) 0.5 %; Lymphocytes # (auto) 1.23 K/uL (1.20-3.40); Mean Corpuscular Hgb Conc 31.1 g/dL (32.0-36.0); Mean Corpuscular Volume 93.2 fL (80.0-100.0); Mean Platelet Volume 11.4 fL (9.4-12.4); Monocytes # (auto) 0.54 K/uL (0.11-0.59); Monocytes % (auto) 4.8 %; Neutrophils # (auto) 9.23 K/uL (1.40-6.50); Neutrophils % (auto) 82.3 %; Platelet Count 174 K/uL (130-400); RDW Coefficient of Variation 17.1 % (11.5-14.5); RDW Standard Deviation 58.7 fL (36.4-46.3); Red Blood Count 3.07 M/uL (4.70-6.10); White Blood Count 11.21 K/ul (4.8-10.8)
[2024-02-14 03:44] LABS: BUN Creatinine Ratio 49.3 (10-20); Bilirubin Direct 0.4 mg/dl (0-0.2); Creatinine Clr Calc Pharmacy 60.9 ml/min; Magnesium 1.7 mg/dl (1.7-2.4); Potassium 3.8 mmol/L (3.5-5.1); Total Protein 6.4 gm/dl (6.0-8.3)
[2024-02-14 03:55] LABS: Troponin I High Sensitivity 58.3 pg/ml (0-20)
--- NOTE | 2024-02-14 03:57 | Emergency Department Note ---
Impression & Plan Fever, [facility] NAME: TITA MCKEON AGE: 88 SEX: Male INFORMANT: and daughter ED PROVIDER(S): Fadia Ring DO CHIEF COMPLAINT: lethargic and fever PLAN: Disposition: admit to the [facility] MEDICAL DECISION MAKING: this is an 88-year-old male patient from [facility] with dementia who presents to the emergency department with increasing lethargy and fever. The patient was diagnosed with aspiration pneumonia on February 06 and Is currently being treated with Augmentin. family became more concerned as the patient became more lethargic on Tuesday and developed a fever today despite being on antibiotics. He was also being treated with Diflucan for yeast in his urine. Patient appears significantly dehydrated. He received 1 L of normal saline solution prehospital. he was given an additional liter here in the emergency department. Chest x-ray was unchanged from previous x-rays. Urinalysis looks questionably infected. Other laboratory studies reveal a white blood cell count of 11.2. Hemoglobin is 8.9 which is baseline for the patient. BUN is 37 which is also baseline. Lactate and procalcitonin were normal. Upper respiratory bio fire testing was negative. Patient will be started on Zosyn as a broad-spectrum antibiotic for his fever. I did look at previous urine cultures as well. I discussed the case with the [facility] Hospitalist and they will evaluate for further management. Care/management discussed with: the exhibitions and collections manager and the hospitalist Triage Nursing notes: reviewed and agree With them. Vital Signs: reviewed and remarkable for Fever Additional History obtained from: and daughter who are at the bedside Chronic Medical/Social Conditions affecting care: dementia Prior/ Outside/ External records reviewed: previous admissions to the hospital Differential Diagnosis: sepsis, UTI, pneumonia, upper respiratory virus Diagnostics, independently interpreted by me: ECG: AV paced rhythm at a rate of [address] segment elevation or signs of ischemia. There is no ectopy. Cardiac Monitoring: Paced rhythm at a rate of 60 Imaging studies: portable chest x-ray: as per radiology HPI: 88 year old Male arrives for evaluation of Fever and lethargy. The patient was diagnosed with aspiration pneumonia on February 06 and Is currently being treated with Augmentin. 2 days ago, the patient was noted to be increasingly lethargic and developed a fever today. He has become somewhat agitated this evening. He was transported here by EMS and received a liter of normal saline solution prehospital. PAST MEDICAL HISTORY: See Below, PAST SURGICAL HISTORY: See Below, SOCIAL HISTORY: See Below, HOME MEDICATIONS: See list ALLERGIES: none VITALS: See Below PHYSICAL EXAMINATION: HEENT: Head - normocephalic and atraumatic. Pupils are equal, round, and reactive to light. Extraocular eye muscles are intact, and sclera are anicteric. Nose - moist nasal mucosa without discharge. Mouth - moist buccal mucosa. Oropharynx is nonerythematous and there is no tonsillar exudate or edema noted. Neck: Supple; no JVD Or cervical lymphadenopathy Heart: Regular rate and rhythm. There is a normal S1 and S2 with no murmurs, clicks, or gallops appreciated. Lungs: absent breath sounds on the left. Diminished breath sounds at the right lung base. No wheezes or rales appreciated Abdomen: Soft, completely nontender, nondistended, with good bowel sounds. There are no palpable pulsatile masses or hepatosplenomegaly. There is no guarding, rigidity, or rebound noted. Extremities: No evidence of cyanosis, clubbing, or edema. There are easily palpable peripheral pulses. Skin: hot and dry with good turgor and no rashes. emergency department course: The patient was evaluated in room B-11. A complete history and physical was performed. A septic protocol was performed. an order was placed for continuous cardiac monitoring. The patient was in a paced rhythm at a rate of 60. A twelve-lead EKG was obtained as described above. Urine specimen was obtained through catheter. A portable chest x-ray was performed. Upper respiratory bio fire testing was obtained. Patient was bolused with a liter of normal saline solution and prophylactically given IV Zosyn. I discussed the case with the [facility] Hospitalist and they will evaluate for further inpatient care. 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) Impaired fasting glucose (Chronic) Dyslipidemia (Chronic) 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) Hypertension (Chronic) Kidney stone on right side (Chronic) Kyphoscoliosis (Chronic) Multiple pulmonary nodules (Chronic) found on xray and no problems just watch Medical History Adrenal insufficiency Sepsis Elevated troponin I level Pacemaker 10/2018 -- [employer] follows dr simpson last check - 02/2019 CAD (coronary artery disease) Acute hypotension Short-term memory loss Kidney stone 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 Sinus bradycardia Encounter for pre-operative examination Raynauds syndrome MILD (EFFECTING FINGERS) Hypertension Hyperlipidemia Cellulitis of left hand Surgical History History of tonsillectomy History of inguinal hernia repair Hx of hernia repair repair of inguinal hernia History of cataract surgery RT/ LT History of colonoscopy Blocked tear duct repair of of tear duct History of cardiac cath 02/2002 and then needed cabg x 4 Family History Sister Family history of diabetes mellitus Hypertension Family/Other Family history of diabetes mellitus Father Acute myocardial infarction Denies family history of Ovarian cancer Prostate cancer Myocardial infarction Breast cancer Colorectal cancer Social History Smoking Status: Never smoker Second Hand Exposure: No; Do You Dip or Chew Tobacco: No (pt intubated); Hx Alcohol Use: No Hx Substance Use: No Preferred Language: Ukrainian Communication Ability: Impaired Communication Ability Comment: pt intubated Visual Impairment: Limited Hearing Ability: Normal [employer] Required: No Beliefs That Will Affect Care: None marital status: Current Living Situation: Assisted Current Living Situation Comment: [facility] current occupational status: retired How many Children do You have: 2 Other Information That Helps Us Care for You: No Feels Safe at Home: Yes Childhood Exposure to Second-Hand Smoke: No caffeine: Yes (coffee and sometimes tea ) Dental Care, Regularly: Yes Physical Activity Frequency: Daily Physical Activity Frequency Comment: walks 40 mins a day Seatbelt Use: always Sunscreen Use: Yes Assistive Devices: Oxygen - at Night Allergies Allergies Allergy/AdvReac Type Severity Reaction Status Date / Time No Known Allergies Allergy Verified 09/11/23 01:00 Home Meds Home Medications Medication Instructions Recorded Confirmed acetaminophen 325 mg tablet 650 mg PO Q4 PRN Fever Or Pain 02/09/23 02/14/24 (Tylenol) aspirin 81 mg chewable tablet 81 mg PO QAM 02/09/23 02/14/24 docusate sodium 100 mg tablet 100 mg PO Q24H PRN 02/09/23 02/14/24 Constipation-GIVE ON DAY 2 IN NO BM doxazosin 1 mg tablet 1 mg PO HS 02/09/23 02/14/24 escitalopram oxalate 10 mg tablet 15 mg PO QAM 02/09/23 02/14/24 levothyroxine 50 mcg tablet 50 mcg PO QAM 02/09/23 02/14/24 nitroglycerin 0.4 mg sublingual 0.4 mg sublingual DIRECTED PRN 02/09/23 02/14/24 tablet Chest Pain sodium chloride 0.65 % nasal spray 2 spray NA Q2H PRN DRY 09/11/23 02/14/24 aerosol (Saline Mist) NOSE/EPISTAXIS acetaminophen 650 mg HI Q4H PRN temp>100 02/14/24 02/14/24 acetaminophen 160 mg/5 mL oral 160 mg PO Q6H PRN pain or fever 02/14/24 02/14/24 elixir amoxicillin 400 mg-potassium 10 ml PO DAILY 02/14/24 02/14/24 clavulanate 57 mg/5 mL oral suspension bisacodyl 10 mg rectal suppository 10 mg HI DAILY PRN Constipation 02/14/24 02/14/24 (Dulcolax (bisacodyl)) multivitamin 1 tab PO QAM 02/14/24 02/14/24 polyethylene glycol 3350 17 gram 17 g PO DAILY PRN Constipation 02/14/24 02/14/24 oral powder packet (Miralax) risperidone 1 mg/mL oral solution 1 mg PO DAILY 02/14/24 02/14/24 Results & Data (ED) Vital Signs Vital Signs - 24 hr 02/14/24 02:31 02/14/24 02:32 02/14/24 02:41 Temperature 37.7 C H Temperature Source Rectal Pulse Rate 67 60 68 Pulse Rate [Apical] Pulse Rate from SpO2 Sensor Pulse Rhythm [Apical] Pulse Strength [Apical] Respiratory Rate 18 14 Respiratory Effort / Characteristics Non-Labored Respiratory Depth Normal Respiratory Pattern Blood Pressure 110/64 Blood Pressure [Right Arm] Blood Pressure Mean 79 Blood Pressure Mean [Right Arm] Blood Pressure Position [Right Arm] Pulse Oximetry 94 95 Oxygen Delivery Method Nasal Cannula Nasal Cannula Oxygen Flow Rate 4 4 Sepsis Recent Fever Within 48 Hours Yes Sepsis New/Unexplained Change in Mental Status No Sepsis Action Taken by Nursing No Action Required 02/14/24 03:00 02/14/24 03:39 02/14/24 04:00 Temperature Temperature Source Pulse Rate 60 60 60 Pulse Rate [Apical] Pulse Rate from SpO2 Sensor 60 60 59 L Pulse Rhythm [Apical] Pulse Strength [Apical] Respiratory Rate 18 22 21 Respiratory Effort / Characteristics Respiratory Depth Respiratory Pattern Blood Pressure 120/60 97/44 L Blood Pressure [Right Arm] Blood Pressure Mean 80 61 Blood Pressure Mean [Right Arm] Blood Pressure Position [Right Arm] Pulse Oximetry 95 93 95 Oxygen Delivery Method Nasal Cannula Nasal Cannula Oxygen Flow Rate 4 4 Sepsis Recent Fever Within 48 Hours Sepsis New/Unexplained Change in Mental Status Sepsis Action Taken by Nursing 02/14/24 04:41 02/14/24 04:45 02/14/24 04:45 Temperature 37.2 C Temperature Source Rectal Pulse Rate 60 Pulse Rate [Apical] 60 60 Pulse Rate from SpO2 Sensor 60 Pulse Rhythm [Apical] Regular Regular Pulse Strength [Apical] Normal Normal Respiratory Rate 18 14 26 H Respiratory Effort / Characteristics Non-Labored Spontaneous Non-Labored Spontaneous Respiratory Depth Normal Normal Respiratory Pattern Regular Blood Pressure Blood Pressure [Right Arm] 106/54 L 125/64 Blood Pressure Mean Blood Pressure Mean [Right Arm] 71 84 Blood Pressure Position [Right Arm] Pulse Oximetry 100 97 95 Oxygen Delivery Method Room Air Nasal Cannula Oxygen Flow Rate 3 Sepsis Recent Fever Within 48 Hours Sepsis New/Unexplained Change in Mental Status Sepsis Action Taken by Nursing 02/14/24 05:00 02/14/24 05:12 Temperature Temperature Source Pulse Rate 60 Pulse Rate [Apical] 60 Pulse Rate from SpO2 Sensor 60 Pulse Rhythm [Apical] Regular Pulse Strength [Apical] Normal Respiratory Rate 18 22 Respiratory Effort / Characteristics Non-Labored Spontaneous Respiratory Depth Normal Respiratory Pattern Blood Pressure Blood Pressure [Right Arm] 115/72 Blood Pressure Mean Blood Pressure Mean [Right Arm] 86 Blood Pressure Position [Right Arm] Lying Pulse Oximetry 99 94 Oxygen Delivery Method Room Air Oxygen Flow Rate Sepsis Recent Fever Within 48 Hours Sepsis New/Unexplained Change in Mental Status Sepsis Action Taken by Nursing Laboratory Data 02/14/24 02:35 02/14/24 02:35 Lab Results 02/14/24 02/14/24 02/14/24 Range/Units 02:35 03:29 03:30 WBC 11.21 H (4.8-10.8) K/ul RBC 3.07 L (4.70-6.10) M/uL Hgb 8.9 L (14.0-18.0) g/dl Hct 28.6 L (42.0-52.0) % MCV 93.2 (80.0-100.0) fL MCH 29.0 (25.0-34.0) pg MCHC 31.1 L (32.0-36.0) g/dL RDW Std Deviation 58.7 H (36.4-46.3) fL RDW Coeff of Layo 17.1 H (11.5-14.5) % Plt Count 174 (130-400) K/uL MPV 11.4 (9.4-12.4) fL Immature Gran % (Auto) 0.5 % Neut % (Auto) 82.3 % Lymph % (Auto) 11.0 % [place]ink[place] % (Auto) 4.8 % Eos % (Auto) 1.0 % Baso % (Auto) 0.4 % Neut # (Auto) 9.23 H (1.40-6.50) K/uL Lymph # (Auto) 1.23 (1.20-3.40) K/uL Winkler # (Auto) 0.54 (0.11-0.59) K/uL Eos # (Auto) 0.11 (0.00-0.50) K/uL Baso # (Auto) 0.04 (0.00-0.20) K/uL Immature Gran # (Auto) 0.06 (0.01-0.20) K/uL Sodium 147 H (136-145) mmol/L Potassium 3.8 (3.5-5.1) mmol/L Chloride 113 H (98-107) mmol/L Carbon Dioxide 25 (21-32) mmol/L Anion Gap 9 (3-11) BUN 37 H (6-23) mg/dl Creatinine 0.75 (0.6-1.4) mg/dl Est Cr Clr Drug Dosing 60.9 ml/min eGFR 86.80 BUN/Creatinine Ratio 49.3 H (10-20) Glucose 126 H (70-99(Fasting)) mg/dl Lactate 1.4 (0.4-2.0) mmol/L Calcium 9.0 (8.6-10.3) mg/dl Magnesium 1.7 (1.7-2.4) mg/dl Total Bilirubin 1.0 (0.2-1.0) mg/dl Direct Bilirubin 0.4 H (0-0.2) mg/dl AST 13 (13-39) U/L ALT 12 (7-52) U/L Alkaline Phosphatase 73 (34-104) U/L Troponin I High Sens 58.3 H* (0-20) pg/ml Total Protein 6.4 (6.0-8.3) gm/dl Albumin 3.0 L (3.4-5.0) gm/dl Procalcitonin 0.60 H (0-0.5) ng/ml Urine Color Dark Yellow Urine Appearance Cloudy A (Clear) Urine pH 5.5 (4.5-7.5) Ur Specific [place] 1.025 (1.000-1.030) Urine Protein 2+ H (Negative) Urine Glucose (UA) Negative (Negative) Urine Ketones Negative (Negative) Urine Blood 3+ H (Negative) Urine Nitrite Negative (Negative) Urine Bilirubin 1+ H (Negative) Urine Urobilinogen Negative (Negative) Ur Leukocyte Esterase 2+ H (Negative) Urine WBC (Auto) >50 H (0-5) /hpf Urine RBC (Auto) >20 H (0-2) /hpf U Hyaline Cast (Auto) 6-10 H (0-2) /lpf U Epithel Cells (Auto) 0-2 (0-2) /hpf Urine Bacteria (Auto) None Seen (None Seen) Hyaline Casts Present A (None Presnt) /lpf Adenovirus (PCR) Not Detected (NotDetected) B. pertussis DNA (PCR) Not Detected (NotDetected) B.parapertussis DNA PCR Not Detected (NotDetected) C. pneumoniae DNA (PCR) Not Detected (NotDetected) Coronavirus OC43 (PCR) Not Detected (NotDetected) Coronavirus HKU1 (PCR) Not Detected (NotDetected) Coronavirus 229E (PCR) Not Detected (NotDetected) SARS-CoV-2 (PCR) Not Detected (NotDetected) Coronavirus NL63 (PCR) Not Detected (NotDetected) Human Metapneumovir PCR Not Detected (NotDetected) Influenza Type A (PCR) Not Detected (NotDetected) Influenza Type B (PCR) Not Detected (NotDetected) M. pneumoniae (PCR) Not Detected (NotDetected) Parainfluenza 1 (PCR) Not Detected (NotDetected) Parainfluenza 2 (PCR) Not Detected (NotDetected) Parainfluenza 3 (PCR) Not Detected (NotDetected) Parainfluenza 4 (PCR) Not Detected (NotDetected) RSV (PCR) Not Detected (NotDetected) Entero/Rhino (PCR) Not Detected (NotDetected) 02/14/24 Range/Units 04:49 WBC (4.8-10.8) K/ul RBC (4.70-6.10) M/uL Hgb (14.0-18.0) g/dl Hct (42.0-52.0) % MCV (80.0-100.0) fL MCH (25.0-34.0) pg MCHC (32.0-36.0) g/dL RDW Std Deviation (36.4-46.3) fL RDW Coeff of Layo (11.5-14.5) % Plt Count (130-400) K/uL MPV (9.4-12.4) fL Immature Gran % (Auto) % Neut % (Auto) % Lymph % (Auto) % Winkler % (Auto) % Eos % (Auto) % Baso % (Auto) % Neut # (Auto) (1.40-6.50) K/uL Lymph # (Auto) (1.20-3.40) K/uL Winkler # (Auto) (0.11-0.59) K/uL Eos # (Auto) (0.00-0.50) K/uL Baso # (Auto) (0.00-0.20) K/uL Immature Gran # (Auto) (0.01-0.20) K/uL Sodium (136-145) mmol/L Potassium (3.5-5.1) mmol/L Chloride (98-107) mmol/L Carbon Dioxide (21-32) mmol/L Anion Gap (3-11) BUN (6-23) mg/dl Creatinine (0.6-1.4) mg/dl Est Cr Clr Drug Dosing ml/min eGFR BUN/Creatinine Ratio (10-20) Glucose (70-99(Fasting)) mg/dl Lactate (0.4-2.0) mmol/L Calcium (8.6-10.3) mg/dl Magnesium (1.7-2.4) mg/dl Total Bilirubin (0.2-1.0) mg/dl Direct Bilirubin (0-0.2) mg/dl AST (13-39) U/L ALT (7-52) U/L Alkaline Phosphatase (34-104) U/L Troponin I High Sens 70.1 H* D (0-20) pg/ml Total Protein (6.0-8.3) gm/dl Albumin (3.4-5.0) gm/dl Procalcitonin (0-0.5) ng/ml Urine Color Urine Appearance (Clear) Urine pH (4.5-7.5) Ur Specific [place] (1.000-1.030) Urine Protein (Negative) Urine Glucose (UA) (Negative) Urine Ketones (Negative) Urine Blood (Negative) Urine Nitrite (Negative) Urine Bilirubin (Negative) Urine Urobilinogen (Negative) Ur Leukocyte Esterase (Negative) Urine WBC (Auto) (0-5) /hpf Urine RBC (Auto) (0-2) /hpf U Hyaline Cast (Auto) (0-2) /lpf U Epithel Cells (Auto) (0-2) /hpf Urine Bacteria (Auto) (None Seen) Hyaline Casts (None Presnt) /lpf Adenovirus (PCR) (NotDetected) B. pertussis DNA (PCR) (NotDetected) B.parapertussis DNA PCR (NotDetected) C. pneumoniae DNA (PCR) (NotDetected) Coronavirus OC43 (PCR) (NotDetected) Coronavirus HKU1 (PCR) (NotDetected) Coronavirus 229E (PCR) (NotDetected) SARS-CoV-2 (PCR) (NotDetected) Coronavirus NL63 (PCR) (NotDetected) Human Metapneumovir PCR (NotDetected) Influenza Type A (PCR) (NotDetected) Influenza Type B (PCR) (NotDetected) M. pneumoniae (PCR) (NotDetected) Parainfluenza 1 (PCR) (NotDetected) Parainfluenza 2 (PCR) (NotDetected) Parainfluenza 3 (PCR) (NotDetected) Parainfluenza 4 (PCR) (NotDetected) RSV (PCR) (NotDetected) Entero/Rhino (PCR) (NotDetected) Administered Medications Piperacillin Sod/Tazobactam Sod (Zosyn) 4.5 gm in 100 mls @ 25 mls/hr IV Q8H JENNIFER; Protocol Stop: 02/16/24 09:59 Last Infusion: 02/14/24 13:58 Dose: Infused Documented By: Admin: 02/14/24 09:41 Dose: 25 mls/hr Documented By: VIGNESH Lactated Ringer's (Lr) 1,000 mls @ 80 mls/hr IV .[id number] [facility] Stop: 02/15/24 05:37 Last Admin: 02/14/24 16:19 Dose: 80 mls/hr Documented By: Infusion: 02/14/24 14:17 Dose: Infused Documented By: Admin: 02/14/24 06:16 Dose: 125 mls/hr Documented By: MARI Insulin Aspart (Insulin Aspart Per Unit Charge) 0 units SC ACHS [facility] Stop: 03/15/24 07:29 Last Admin: 02/14/24 11:27 Dose: Not Given Documented By: VIGNESH Co-signed By: CC Admin: 02/14/24 07:56 Dose: Not Given Documented By: MMF Co-signed By: ANT Discontinued Medications Aspirin (Aspirin 81 Mg Chew) [facility]: 03/15/24 08:59 Last Admin: 02/14/24 08:43 Dose: Not Given Documented By: VIGNESH Escitalopram Oxalate (Escitalopram Oxalate 10 Mg Tab) [facility] [place] Stop: 03/15/24 08:59 Last Admin: 02/14/24 08:44 Dose: Not Given Documented By: VIGNESH Piperacillin Sod/Tazobactam Sod (Zosyn) 4.5 gm in 100 mls @ 200 mls/hr IV NOW ONE; Protocol Stop: 02/14/24 05:10 Last Infusion: 02/14/24 05:25 Dose: Infused Documented By: Admin: 02/14/24 04:49 Dose: 200 mls/hr Documented By: INNA Sodium Chloride (Nss) 1,000 mls @ 999 mls/hr IV .Q1H1M ONE Stop: 02/14/24 05:42 Last Infusion: 02/14/24 06:15 Dose: Infused Documented By: Admin: 02/14/24 04:49 Dose: 999 mls/hr Documented By: [facility] Levothyroxine Sodium (Levothyroxine Sodium 50 Mcg Tablet) 50 mcg PO DAILYBB [facility] Stop: 03/15/24 07:29 Last Admin: 02/14/24 08:06 Dose: Not Given Documented By: VIGNESH Imaging Data Radiologist's Impression: Chest X-Ray 02/14/24 02:59 EXAM: XR chest 1V portable CLINICAL HISTORY: LETHARGIC BEST IMAGES POSSIBLE DUE TO PT STATUS, PT WAS HELD FOR MULTIPLE IMAGES, UNABLE TO MOVE PTS HEAD OUT OF THE WAY FOR ANY IMAGES JMF TECHNIQUE: X-ray image of the chest is obtained in AP portable projection. COMPARISON: 09/15/2023. FINDINGS: Pulmonary Parenchyma: The left hemithorax totally obscured by the head of the patient. Right lung show coarse interstitial thickening. No evidence of consolidation, or collapse. No evidence of right pleural effusion or pleural thickening. Sternotomy wires seen. Cardiac pace-maker noted. Heart and Mediastinum: Heart size and mediastinum totally obscured. IMPRESSION: 1. Suboptimum image, limited visualization of the heart, mediastinum and left hemithorax. 2. Right lung coarse interstitial thickening, not changed from last scan. Electronically signed by Laol Bernard 02-14-2024 04:15 AM Discharge Plan Visit Data Chief Complaint: Lethargic Stated Complaint: LETHARGIC, FEVER, PNEUMONIA ED Provider: Fadia Ring Discharge Problem: Fever, Elevated troponin Patient Disposition: Admitted As Inpatient Discharge Instructions Interventions: ED Discharge Assessment Last Done: 02/14/24 05:38
--- NOTE | 2024-02-14 04:16 | XRay Report ---
EXAM: XR chest 1V portable CLINICAL HISTORY: LETHARGIC BEST IMAGES POSSIBLE DUE TO PT STATUS, PT WAS HELD FOR MULTIPLE IMAGES, UNABLE TO MOVE PTS HEAD OUT OF THE WAY FOR ANY IMAGES JMF TECHNIQUE: X-ray image of the chest is obtained in AP portable projection. COMPARISON: 09/15/2023. FINDINGS: Pulmonary Parenchyma: The left hemithorax totally obscured by the head of the patient. Right lung show coarse interstitial thickening. No evidence of consolidation, or collapse. No evidence of right pleural effusion or pleural thickening. Sternotomy wires seen. Cardiac pace-maker noted. Heart and Mediastinum: Heart size and mediastinum totally obscured. IMPRESSION: 1. Suboptimum image, limited visualization of the heart, mediastinum and left hemithorax. 2. Right lung coarse interstitial thickening, not changed from last scan. Electronically signed by Lalo Bernard 02-14-2024 04:15 AM
[2024-02-14 04:22] LABS: Appearance Urine Cloudy (Clear); Bacteria Urine Automated None Seen (None Seen); Bilirubin Urine 1+ (Negative); Blood Urine 3+ (Negative); Color Urine Dark Yellow; Epithelial Cell Urine Auto 0-2 /hpf (0-2); Glucose Urine UA Negative (Negative); Hyaline Casts Urine Present /lpf (None Presnt); Ketones Urine Negative (Negative); Leukocyte Esterase Urine 2+ (Negative); Nitrite Urine Negative (Negative); Protein Urine 2+ (Negative); RBC Urine Automated >20 /hpf (0-2); Specific Gravity Urine 1.025 (1.000-1.030); Urobilinogen Urine Negative (Negative); WBC Urine Automated >50 /hpf (0-5); pH Urine 5.5 (4.5-7.5)
[2024-02-14 04:34] LABS: Adenovirus PCR Not Detected (NotDetected); Bordetella parapertussis PCR Not Detected (NotDetected); Bordetella pertussis PCR Not Detected (NotDetected); Chlamydia pneumoniae PCR Not Detected (NotDetected); Coronavirus 229E PCR Not Detected (NotDetected); Coronavirus CoV-2 (COVID19)PCR Not Detected (NotDetected); Coronavirus HKU1 PCR Not Detected (NotDetected); Coronavirus NL63 PCR Not Detected (NotDetected); Coronavirus OC43PCR Not Detected (NotDetected); Human Metapneumovirus PCR Not Detected (NotDetected); Influenza A PCR Not Detected (NotDetected); Influenza B PCR Not Detected (NotDetected); Mycoplasma pneumoniae PCR Not Detected (NotDetected); Parainfluenza Virus 1 PCR Not Detected (NotDetected); Parainfluenza Virus 2 PCR Not Detected (NotDetected); Parainfluenza Virus 3 PCR Not Detected (NotDetected); Parainfluenza Virus 4 PCR Not Detected (NotDetected); Respiratory Syncytial VirusPCR Not Detected (NotDetected); Rhinovirus/Enterovirus PCR Not Detected (NotDetected)
[2024-02-14] MEDS: SODIUM CHLORIDE 0.9% 1,000 ML IV ONE (04:49)
[2024-02-14] MEDS: PIPERACILLIN/TAZOBACTAM 4.5 GM/100 ML BAG IV ONE (04:49)
--- NOTE | 2024-02-14 05:04 | History & Physical Report ---
Date of Service February 14, 2024 Assessment & Plan (1) Fever: Plan: 88yo male presenting with two days of lethargy and fever today. Patient has been on Augmentin for treatment of aspiration PNA. New fever, unclear source. Consider urine. Has had fungal yeast infections in the past and was treated with Diflucan. -Follow cultures sent from ER -Continue Zosyn -Tylenol PRN -Maintain aspiration precautions (2) Pneumonia: Plan: Patient being treated for aspiration PNA with Augmentin -Hold Augmentin -Zosyn for now (3) Elevated troponin: Plan: Patient unable to endorse chest pain. EKG with AV dual paced rhythm -Trend troponin -Continue ASA History of Present Illness Chief Complaint: lethargy, fever Primary Care Provider: [facility] Manuel Lloyd is an 88yo male with history of CAD s/p CABG in 2001, HTN, HLP and Dementia presenting from [facility] with report of 2 days of worsening lethargy and 1day of fever. Patient was diagnosed with aspiration PNA on 02/07/24 and was given a shot of Ceftriaxone before being started on Augmentin. He has been doing well overall with improvement in symptoms until the last two days when he developed lethargy, decreased appetite and poor intake as well as fever this evening prior to arrival. Also with some agitation Received 1L NSS prior to arrival Patient with dementia at baseline. Mostly non-verbal, spends most of his days in the wheelchair, full assist for transfers, meals and hygiene Allergies Allergy/AdvReac Type Severity Reaction Status Date / Time No Known Allergies Allergy Verified 09/11/23 01:00 Home Medications Medication Instructions Recorded Confirmed Type acetaminophen 325 mg tablet 650 mg PO Q4 PRN Fever Or Pain 02/09/23 02/14/24 History (Tylenol) aspirin 81 mg chewable tablet 81 mg PO QAM 02/09/23 09/11/23 History docusate sodium 100 mg tablet 100 mg PO Q24H PRN 02/09/23 09/11/23 History Constipation-GIVE ON DAY 2 IN NO BM doxazosin 1 mg tablet 1 mg PO HS 02/09/23 09/11/23 History escitalopram oxalate 10 mg tablet 15 mg PO QAM 02/09/23 09/11/23 History levothyroxine 50 mcg tablet 50 mcg PO QAM 02/09/23 09/11/23 History nitroglycerin 0.4 mg sublingual 0.4 mg sublingual DIRECTED PRN 02/09/23 09/11/23 History tablet Chest Pain sodium chloride 0.65 % nasal spray 2 spray NA Q2H PRN DRY 09/11/23 09/11/23 History aerosol (Saline Mist) NOSE/EPISTAXIS insulin aspart U-100 100 unit/mL 1 sliding scale dose SC ACHS #10 mL 09/21/23 Rx subcutaneous solution (Novolog U-100 Insulin aspart) acetaminophen 650 mg 02/14/24 History amoxicillin 400 mg-potassium ml 02/14/24 History clavulanate 57 mg/5 mL oral suspension bisacodyl 10 mg rectal suppository 10 mg AR 02/14/24 History (Dulcolax (bisacodyl)) risperidone 1 mg/mL oral solution 02/14/24 History Past Med/Surg History Problem List (Updated 02/14/24 @ 06:52 by Alisha Yates DO) Elevated troponin Pneumonia Fever Delirium Hypernatremia Goals of care, counseling/discussion Severe dementia Paroxysmal atrial fibrillation Kidney stone on right side Abdominal pain (Acute) LIAT (acute kidney injury) (Acute) Acute kidney injury Dehydration Hypotension History of coronary artery bypass graft 2001/CABG 4 VESSELS done at [place] CKD (chronic kidney disease), stage III Hypothyroidism Cognitive change (Chronic) 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) Impaired fasting glucose (Chronic) Dyslipidemia (Chronic) 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) Hypertension (Chronic) Kidney stone on right side (Chronic) Kyphoscoliosis (Chronic) Multiple pulmonary nodules (Chronic) found on xray and no problems just watch Medical History Adrenal insufficiency Sepsis Elevated troponin I level Pacemaker 10/2018 -- [employer] follows dr simpson last check - 02/2019 CAD (coronary artery disease) Acute hypotension Short-term memory loss Kidney stone 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 Sinus bradycardia Encounter for pre-operative examination Raynauds syndrome MILD (EFFECTING FINGERS) Hypertension Hyperlipidemia Cellulitis of left hand Surgical History History of tonsillectomy History of inguinal hernia repair Hx of hernia repair repair of inguinal hernia History of cataract surgery RT/ LT History of colonoscopy Blocked tear duct repair of of tear duct History of cardiac cath 02/2002 and then needed cabg x 4 Family History Sister Family history of diabetes mellitus Hypertension Family/Other Family history of diabetes mellitus Father Acute myocardial infarction Denies family history of Ovarian cancer Prostate cancer Myocardial infarction Breast cancer Colorectal cancer Social History Smoking Status: Never smoker Second Hand Exposure: No; Do You Dip or Chew Tobacco: No (pt intubated); Hx Alcohol Use: No Hx Substance Use: No Preferred Language: Moroccan Communication Ability: Impaired Communication Ability Comment: pt intubated Visual Impairment: Limited Hearing Ability: Normal 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 Beliefs That Will Affect Care: None marital status: Current Living Situation: [facility] Current Living Situation Comment: [facility] current occupational status: retired How many Children do You have: 2 Other Information That Helps Us Care for You: No Feels Safe at Home: Yes Childhood Exposure to Second-Hand Smoke: No caffeine: Yes (coffee and sometimes tea ) Dental Care, Regularly: Yes Physical Activity Frequency: Daily Physical Activity Frequency Comment: walks 40 mins a day Seatbelt Use: always Sunscreen Use: Yes Assistive Devices: Oxygen - at Night Review of Systems Review of Systems: All systems reviewed & are unremarkable except as noted in HPI & below Physical Exam Physical Exam: General: patient sleeping, no acute distress Skin: warm, dry, intact, no rashes or lesions HEENT: NC/AT, external ear normal to inspection and nontender, nares patent, moist mucus membranes, dentition intact, no oropharyngeal lesions, neck supple, trachea midline, no LAD, no thyromegaly, no JVD Heart: +S1/S2, regular, 3/6 KANNAN across precordium Lungs: equal air entry bilaterally + crackles left anterior lung field, no rhonchi or wheezes Abd: +BS, soft, NT/ND, no masses/organomegaly/ascites Ext: warm, 2+ pulses in UE/LE bilaterally, no clubbing/cyanosis or edema Neuro: non-verbal Results & Data Results & Data Vital Signs (Past 12 Hours) Vital Signs Temp Pulse Pulse Resp BP BP Pulse Ox 02/14/24 04:45 37.2 C 60 14 125/64 97 02/14/24 04:41 60 18 106/54 L 100 02/14/24 03:39 60 22 97/44 L 93 02/14/24 03:00 60 18 120/60 95 02/14/24 02:41 68 14 95 02/14/24 02:32 37.7 C H 60 18 110/64 94 02/14/24 02:31 67 O2 Del Method O2 Flow Rate 02/14/24 04:45 Nasal Cannula 3 02/14/24 04:41 Room Air 02/14/24 03:39 Nasal Cannula 4 02/14/24 03:00 Nasal Cannula 4 02/14/24 02:41 Nasal Cannula 4 02/14/24 02:32 Nasal Cannula 4 02/14/24 02:31 Laboratory Results Laboratory Results WBC 11.21 K/ul (4.8-10.8) H 02/14/24 02:35 RBC 3.07 M/uL (4.70-6.10) L 02/14/24 02:35 Hgb 8.9 g/dl (14.0-18.0) L 02/14/24 02:35 Hct 28.6 % (42.0-52.0) L 02/14/24 02:35 MCV 93.2 fL (80.0-100.0) 02/14/24 02:35 MCH 29.0 pg (25.0-34.0) 02/14/24 02:35 MCHC 31.1 g/dL (32.0-36.0) L 02/14/24 02:35 RDW Std Deviation 58.7 fL (36.4-46.3) H 02/14/24 02:35 RDW Coeff of Layo 17.1 % (11.5-14.5) H 02/14/24 02:35 Plt Count 174 K/uL (130-400) 02/14/24 02:35 MPV 11.4 fL (9.4-12.4) 02/14/24 02:35 Immature Gran % (Auto) 0.5 % 02/14/24 02:35 Neut % (Auto) 82.3 % 02/14/24 02:35 Lymph % (Auto) 11.0 % 02/14/24 02:35 Stewart % (Auto) 4.8 % 02/14/24 02:35 Eos % (Auto) 1.0 % 02/14/24 02:35 Baso % (Auto) 0.4 % 02/14/24 02:35 Neut # (Auto) 9.23 K/uL (1.40-6.50) H 02/14/24 02:35 Lymph # (Auto) 1.23 K/uL (1.20-3.40) 02/14/24 02:35 Stewart # (Auto) 0.54 K/uL (0.11-0.59) 02/14/24 02:35 Eos # (Auto) 0.11 K/uL (0.00-0.50) 02/14/24 02:35 Baso # (Auto) 0.04 K/uL (0.00-0.20) 02/14/24 02:35 Immature Gran # (Auto) 0.06 K/uL (0.01-0.20) 02/14/24 02:35 Sodium 147 mmol/L (136-145) H 02/14/24 02:35 Potassium 3.8 mmol/L (3.5-5.1) 02/14/24 02:35 Chloride 113 mmol/L (98-107) H 02/14/24 02:35 Carbon Dioxide 25 mmol/L (21-32) 02/14/24 02:35 Anion Gap 9 (3-11) 02/14/24 02:35 BUN 37 mg/dl (6-23) H 02/14/24 02:35 Creatinine 0.75 mg/dl (0.6-1.4) 02/14/24 02:35 Est Cr Clr Drug Dosing 60.9 ml/min 02/14/24 02:35 eGFR 86.80 02/14/24 02:35 BUN/Creatinine Ratio 49.3 (10-20) H 02/14/24 02:35 Glucose 126 mg/dl (70-99(Fasting)) H 02/14/24 02:35 Lactate 1.4 mmol/L (0.4-2.0) 02/14/24 02:35 Calcium 9.0 mg/dl (8.6-10.3) 02/14/24 02:35 Magnesium 1.7 mg/dl (1.7-2.4) 02/14/24 02:35 Total Bilirubin 1.0 mg/dl (0.2-1.0) 02/14/24 02:35 Direct Bilirubin 0.4 mg/dl (0-0.2) H 02/14/24 02:35 AST 13 U/L (13-39) 02/14/24 02:35 ALT 12 U/L (7-52) 02/14/24 02:35 Alkaline Phosphatase 73 U/L (34-104) 02/14/24 02:35 Troponin I High Sens 58.3 pg/ml (0-20) H* 02/14/24 02:35 Total Protein 6.4 gm/dl (6.0-8.3) 02/14/24 02:35 Albumin 3.0 gm/dl (3.4-5.0) L 02/14/24 02:35 Procalcitonin 0.60 ng/ml (0-0.5) H 02/14/24 02:35 Urine Color Dark Yellow 02/14/24 03:29 Urine Appearance Cloudy (Clear) A 02/14/24 03:29 Urine pH 5.5 (4.5-7.5) 02/14/24 03:29 Ur Specific [place] 1.025 (1.000-1.030) 02/14/24 03:29 Urine Protein 2+ (Negative) H 02/14/24 03:29 Urine Glucose (UA) Negative (Negative) 02/14/24 03:29 Urine Ketones Negative (Negative) 02/14/24 03:29 Urine Blood 3+ (Negative) H 02/14/24 03:29 Urine Nitrite Negative (Negative) 02/14/24 03:29 Urine Bilirubin 1+ (Negative) H 02/14/24 03:29 Urine Urobilinogen Negative (Negative) 02/14/24 03:29 Ur Leukocyte Esterase 2+ (Negative) H 02/14/24 03:29 Urine WBC (Auto) >50 /hpf (0-5) H 02/14/24 03:29 Urine RBC (Auto) >20 /hpf (0-2) H 02/14/24 03:29 U Hyaline Cast (Auto) 6-10 /lpf (0-2) H 02/14/24 03:29 U Epithel Cells (Auto) 0-2 /hpf (0-2) 02/14/24 03:29 Urine Bacteria (Auto) None Seen (None Seen) 02/14/24 03:29 Hyaline Casts Present /lpf (None Presnt) A 02/14/24 03:29 Adenovirus (PCR) Not Detected (NotDetected) 02/14/24 03:30 B. pertussis DNA (PCR) Not Detected (NotDetected) 02/14/24 03:30 B.parapertussis DNA PCR Not Detected (NotDetected) 02/14/24 03:30 C. pneumoniae DNA (PCR) Not Detected (NotDetected) 02/14/24 03:30 Coronavirus OC43 (PCR) Not Detected (NotDetected) 02/14/24 03:30 Coronavirus HKU1 (PCR) Not Detected (NotDetected) 02/14/24 03:30 Coronavirus 229E (PCR) Not Detected (NotDetected) 02/14/24 03:30 SARS-CoV-2 (PCR) Not Detected (NotDetected) 02/14/24 03:30 Coronavirus NL63 (PCR) Not Detected (NotDetected) 02/14/24 03:30 Human Metapneumovir PCR Not Detected (NotDetected) 02/14/24 03:30 Influenza Type A (PCR) Not Detected (NotDetected) 02/14/24 03:30 Influenza Type B (PCR) Not Detected (NotDetected) 02/14/24 03:30 M. pneumoniae (PCR) Not Detected (NotDetected) 02/14/24 03:30 Parainfluenza 1 (PCR) Not Detected (NotDetected) 02/14/24 03:30 Parainfluenza 2 (PCR) Not Detected (NotDetected) 02/14/24 03:30 Parainfluenza 3 (PCR) Not Detected (NotDetected) 02/14/24 03:30 Parainfluenza 4 (PCR) Not Detected (NotDetected) 02/14/24 03:30 RSV (PCR) Not Detected (NotDetected) 02/14/24 03:30 Entero/Rhino (PCR) Not Detected (NotDetected) 02/14/24 03:30 Impressions Chest X-Ray 02/14/24 02:59 EXAM: XR chest 1V portable CLINICAL HISTORY: LETHARGIC BEST IMAGES POSSIBLE DUE TO PT STATUS, PT WAS HELD FOR MULTIPLE IMAGES, UNABLE TO MOVE PTS HEAD OUT OF THE WAY FOR ANY IMAGES JMF TECHNIQUE: X-ray image of the chest is obtained in AP portable projection. COMPARISON: 09/15/2023. FINDINGS: Pulmonary Parenchyma: The left hemithorax totally obscured by the head of the patient. Right lung show coarse interstitial thickening. No evidence of consolidation, or collapse. No evidence of right pleural effusion or pleural thickening. Sternotomy wires seen. Cardiac pace-maker noted. Heart and Mediastinum: Heart size and mediastinum totally obscured. IMPRESSION: 1. Suboptimum image, limited visualization of the heart, mediastinum and left hemithorax. 2. Right lung coarse interstitial thickening, not changed from last scan. Electronically signed by Lalo Bernard 02-14-2024 04:15 AM PG Care Time/CCT Total # of Minutes Spent Total Time Spent with Patient: Total time spent is greater than 50% in coordination of care (as documented) at patient's floor/unit and/or counseling patient: Coding Level of Care Code 13447 INT INP/OBS CARE 2/55MIN Diagnoses Fever R50.9 Pneumonia J18.9 Elevated troponin R79.89
[2024-02-14] MEDS ORDERED: CARBOHYDRATES FOR HYPOGLYCEMIA PO PRN (05:38)
[2024-02-14] MEDS ORDERED: GLUCOSE 10 TAB/TUBE PO PRN (05:38)
[2024-02-14] MEDS ORDERED: DEXTROSE 50% 50 ML SYRINGE IV PRN (05:38)
[2024-02-14] MEDS ORDERED: GLUCAGON FOR INJ 1 MG VIAL SQ PRN (05:38)
[2024-02-14] MEDS ORDERED: GLUCOSE 40% GEL 15 GM TUBE PO PRN (05:38)
[2024-02-14] MEDS ORDERED: ACETAMINOPHEN 325 MG TAB PO PRN (05:38)
[2024-02-14] MEDS ORDERED: ONDANSETRON INJ 2 MG/ML 2 ML VIAL IV PRN (05:38)
[2024-02-14] MEDS ORDERED: Nursing to Pharmacy Communication SCH (05:45)
[2024-02-14] MEDS: LACTATED RINGER'S 1,000 ML IV SCH (06:16)
[2024-02-14] MEDS: INSULIN ASPART PER UNIT CHARGE SC SCH (07:56)
[2024-02-14] MEDS: LEVOTHYROXINE SODIUM 50 MCG TABLET PO SCH (08:06)
[2024-02-14] MEDS: ASPIRIN 81 MG CHEW PO SCH (08:43)
[2024-02-14] MEDS: ESCITALOPRAM OXALATE 10 MG TAB PO SCH (08:44)
[2024-02-14] MEDS: PIPERACILLIN/TAZOBACTAM 4.5 GM/100 ML BAG IV SCH (09:41)
[2024-02-14] MEDS ORDERED: NITROGLYCERIN SL 0.4 MG/TAB TAB SL PRN (15:15)
--- NOTE | 2024-02-14 15:19 | Hospitalist Progress Note ---
Date of Service February 14, 2024 Assessment & Plan (1) Fever: Plan: Suspected acute metabolic encephalopathy on admission. Probably from UTI. Urine and blood cultures are pending. Continue intravenous Zosyn for now. Supportive care. (2) Pneumonia: Plan: Recently treated with Augmentin for aspiration pneumonia. Currently on intravenous Zosyn. (3) Elevated troponin: Plan: Mild. No acute EKG changes. Acute coronary syndrome is doubtful. Plan IV antibiotics. Await urine and blood culture results. agrees to DNR status. Eventual return to [facility]. Admission and Anticipated Discharge Date Admission Date: February 14, 2024 Subjective The patient is nonverbal with me and severely demented. is at the bedside. We discussed his CODE STATUS and she agreed on a DO NOT RESUSCITATE order understanding this does not mean do not treat. She agrees to Woods catheter placement for accurate measurements of urine output. Continue Zosyn for now along with IV fluids at 80 cc/h. More than likely, he has a urinary tract infection causing his fever and lethargy. He was recently treated for aspiration pneumonia. Review of Systems 2 Review of Systems: The patient is unable to answer any questions regarding review of systems at this time Physical Exam 2 Physical Exam: General-unresponsive. Nonverbal with me HEENT-head atraumatic and normocephalic, pupils equal and reactive to light, extraocular muscles intact Neck-no lymphadenopathy or thyromegaly, trachea midline Chest-scattered bilateral rhonchi. No wheezing. No rales. Cardiac-regular rate and rhythm, normal S1 and S2 Abdomen-normal bowel sounds, no hepatosplenomegaly Extremities-no cyanosis, clubbing, or edema Neuro-cannot assess. The patient is unresponsive Psych-cannot assess Results & Data Results & Data Vital Signs (Past 12 Hours) Vital Signs Temp Pulse Pulse Resp BP BP Pulse Ox 02/14/24 14:36 61 25 H 123/69 90 02/14/24 12:59 60 20 124/73 94 02/14/24 07:16 60 25 H 114/61 96 02/14/24 06:00 60 21 99/51 L 95 02/14/24 05:30 60 23 99 02/14/24 05:12 60 22 94 02/14/24 05:00 60 18 115/72 99 02/14/24 04:45 60 26 H 95 02/14/24 04:45 37.2 C 60 14 125/64 97 02/14/24 04:41 60 18 106/54 L 100 02/14/24 04:00 60 21 95 02/14/24 03:39 60 22 97/44 L 93 O2 Del Method O2 Flow Rate 02/14/24 14:36 Nasal Cannula 3 02/14/24 12:59 Nasal Cannula 3 02/14/24 07:16 Nasal Cannula 3 02/14/24 06:00 02/14/24 05:30 02/14/24 05:12 02/14/24 05:00 Room Air 02/14/24 04:45 02/14/24 04:45 Nasal Cannula 3 02/14/24 04:41 Room Air 02/14/24 04:00 02/14/24 03:39 Nasal Cannula 4 Laboratory Results 02/14/24 02:35 02/14/24 02:35 PG Care Time/CCT Total # of Minutes Spent Total Time Spent with Patient: Total time spent is greater than 50% in coordination of care (as documented) at patient's floor/unit and/or counseling patient: Coding Level of Care Code 98517 SUB INP/OBS CARE 3/50MIN Diagnoses Fever R50.9 Pneumonia J18.9 Elevated troponin R79.89
[2024-02-15 08:26] LABS: Basophils # (auto) 0.05 K/uL (0.00-0.20); Basophils % (auto) 0.6 %; Eosinophils # (auto) 0.46 K/uL (0.00-0.50); Eosinophils % (auto) 5.3 %; Hematocrit (blood only) 26.3 % (42.0-52.0); Hemoglobin 8.3 g/dl (14.0-18.0); Immature Granulocytes # (auto) 0.04 K/uL (0.01-0.20); Immature Granulocytes % (auto) 0.5 %; Lymphocytes # (auto) 1.41 K/uL (1.20-3.40); Lymphocytes % (auto) 16.1 %; Mean Corpuscular Hemoglobin 29.4 pg (25.0-34.0); Mean Corpuscular Hgb Conc 31.6 g/dL (32.0-36.0); Mean Corpuscular Volume 93.3 fL (80.0-100.0); Mean Platelet Volume 11.4 fL (9.4-12.4); Monocytes % (auto) 6.9 %; Neutrophils # (auto) 6.18 K/uL (1.40-6.50); Neutrophils % (auto) 70.6 %; Platelet Count 170 K/uL (130-400); RDW Standard Deviation 57.9 fL (36.4-46.3); Red Blood Count 2.82 M/uL (4.70-6.10); White Blood Count 8.74 K/ul (4.8-10.8)
[2024-02-15 08:46] LABS: BUN Creatinine Ratio 41.1 (10-20); Calcium 8.7 mg/dl (8.6-10.3); Creatinine Clr Calc Pharmacy 62.3 ml/min; Potassium 3.7 mmol/L (3.5-5.1)
--- NOTE | 2024-02-15 12:51 | Hospitalist Progress Note ---
Date of Service February 15, 2024 Assessment & Plan (1) Sepsis: Plan: Present on admission. Fortunately he did not require pressor support. Now resolved (2) Fever: Plan: Suspected element of acute metabolic encephalopathy on admission. Presumably from occult infection. Could be viral. Urine culture is negative to date. Blood culture reported as negative. He remains on intravenous Zosyn, day 3. Eventual return to [facility] on oral Augmentin (3) Pneumonia: Plan: Recently treated with Augmentin for aspiration pneumonia. Currently on intravenous Zosyn. (4) Elevated troponin: Plan: Mild. No acute EKG changes. Acute coronary syndrome is doubtful. (5) Demand ischemia: Plan: Troponins mildly elevated without acute EKG changes. No evidence of acute coronary syndrome Plan Hopeful return to [facility] tomorrow, February 15, on oral Augmentin. Admission and Anticipated Discharge Date Admission Date: February 14, 2024 Subjective Clinically improved. He is now awake. Family is at the bedside. Blood cultures remain negative. Urine culture remains negative to date. He is on intravenous Zosyn, day 3. Hopefully he can return to [facility] tomorrow, February 15 Review of Systems 2 Review of Systems: The patient is unable to answer any questions regarding review of systems at this time Physical Exam 2 Physical Exam: General-awake but nonverbal. No distress HEENT-head atraumatic and normocephalic, pupils equal and reactive to light, extraocular muscles intact Neck-no lymphadenopathy or thyromegaly, trachea midline Chest-scattered bilateral rhonchi. No wheezing. No rales. Cardiac-regular rate and rhythm, normal S1 and S2 Abdomen-normal bowel sounds, no hepatosplenomegaly Extremities-no cyanosis, clubbing, or edema Neuro-moving all extremities randomly. Nonverbal. Psych-cannot assess. Nonverbal. Severe baseline dementia Results & Data Results & Data Vital Signs (Past 12 Hours) Vital Signs Temp Pulse Resp BP Pulse Ox O2 Del Method 02/15/24 10:23 Room Air 02/15/24 07:20 36.7 C 60 16 115/48 L 98 Room Air Laboratory Results 02/15/24 07:16 02/15/24 07:16 PG Care Time/CCT Total # of Minutes Spent Total Time Spent with Patient: Total time spent is greater than 50% in coordination of care (as documented) at patient's floor/unit and/or counseling patient: Coding Level of Care Code 69415 SUB INP/OBS CARE 2/35MIN Diagnoses Sepsis A41.9 Fever R50.9 Pneumonia J18.9 Elevated troponin R79.89 Demand ischemia I24.89
[2024-02-16 07:38] VITALS: PULSE 60
--- NOTE | 2024-02-16 07:45 | XRay Report ---
EXAM: XR chest 1V portable CLINICAL HISTORY: RECENT ASPIRATION PNEUMONIA KAB [facility] TECHNIQUE: X-ray image of the chest is obtained in AP portable projection. COMPARISON: 02/14/2024. FINDINGS: Both lungs showed coarse interstitial thickening with right basal ground-glass opacity. No evidence of pleural effusion or pleural thickening. Sternotomy wires were seen. Cardiac pace-maker noted noted on the left side, with wires in place. Cardiac size is enlarged IMPRESSION: 1. Bilateral coarsened pulmonary interstitium with possible right basilar lung ribs opacity suggesting pneumonia. New interval finding. 2. Cardiomegaly. 3. Otherwise no interval changes. Electronically signed by Francesco Liang 02-16-2024 07:44 AM
[2024-02-16 08:29] LABS: Basophils # (auto) 0.04 K/uL (0.00-0.20); Basophils % (auto) 0.6 %; Eosinophils # (auto) 0.44 K/uL (0.00-0.50); Eosinophils % (auto) 7.1 %; Hematocrit (blood only) 28.6 % (42.0-52.0); Immature Granulocytes # (auto) 0.04 K/uL (0.01-0.20); Immature Granulocytes % (auto) 0.6 %; Lymphocytes # (auto) 1.31 K/uL (1.20-3.40); Mean Corpuscular Hemoglobin 28.9 pg (25.0-34.0); Mean Corpuscular Hgb Conc 31.5 g/dL (32.0-36.0); Monocytes # (auto) 0.48 K/uL (0.11-0.59); Monocytes % (auto) 7.7 %; Neutrophils # (auto) 3.92 K/uL (1.40-6.50); Platelet Count 185 K/uL (130-400); RDW Coefficient of Variation 16.9 % (11.5-14.5); RDW Standard Deviation 56.9 fL (36.4-46.3); Red Blood Count 3.11 M/uL (4.70-6.10); White Blood Count 6.23 K/ul (4.8-10.8)
[2024-02-16 08:47] LABS: BUN Creatinine Ratio 48.5 (10-20); Calcium 8.3 mg/dl (8.6-10.3); Creatinine Clr Calc Pharmacy 66.9 ml/min; Potassium 3.6 mmol/L (3.5-5.1)
--- NOTE | 2024-02-16 10:12 | Discharge Summary ---
Discharge Summary Date of Service February 16, 2024 Principal Dx & Hospital Course #1 = Principal Diagnosis (1) Sepsis: Present on admission. Fortunately he did not require pressor support. Now resolved (2) Fever: Suspected element of acute metabolic encephalopathy on admission. Presumably from occult infection. Suspect viral etiology. Urine culture is negative to date. Blood culture reported as negative. Treated while hospitalized with Zosyn. He will resume his Augmentin at discharge. (3) Pneumonia: Recently placed on Augmentin for aspiration pneumonia. Treated while hospitalized with intravenous Zosyn. He will finish his Augmentin course upon discharge. (4) Elevated troponin: Mild. No acute EKG changes. Acute coronary syndrome is doubtful. (5) Demand ischemia: Troponins mildly elevated without acute EKG changes. No evidence of acute coronary syndrome (6) Metabolic encephalopathy: Present on admission. He is now back to his baseline mental status (7) Dementia: Severe. Nonverbal. Plan Discharge back to [facility] today, February 15. I spoke to his family today by phone. Admission HPI Per Admitting Provider Manuel Lloyd is an 88yo male with history of CAD s/p CABG in 2001, HTN, HLP and Dementia presenting from [facility] with report of 2 days of worsening lethargy and 1day of fever. Patient was diagnosed with aspiration PNA on 02/07/24 and was given a shot of Ceftriaxone before being started on Augmentin. He has been doing well overall with improvement in symptoms until the last two days when he developed lethargy, decreased appetite and poor intake as well as fever this evening prior to arrival. Also with some agitation Received 1L NSS prior to arrival Patient with dementia at baseline. Mostly non-verbal, spends most of his days in the wheelchair, full assist for transfers, meals and hygiene Discharge Exam General-awake and alert but nonverbal. No distress HEENT-head atraumatic and normocephalic, pupils equal and reactive to light, extraocular muscles intact Neck-no lymphadenopathy or thyromegaly, trachea midline Chest-scattered bilateral rhonchi. No wheezing. No rales. Cardiac-regular rate and rhythm, normal S1 and S2 Abdomen-normal bowel sounds, no hepatosplenomegaly Extremities-no cyanosis, clubbing, or edema Neuro-moving all extremities randomly. Nonverbal. Psych-cannot assess. Nonverbal. Severe baseline dementia Discharge Plan Discharge Items Patient Disposition: Transfer Snf Fac Reason For Visit: LETHARGY Discharge Diagnosis: Suspected viral illness, acute metabolic encephalopathy, suspected sepsis on admission. Demand ischemia Activity: Resume your previous activity Non-emergency contact: Primary Care Provider Call non-emergency contact if: your symptoms worsen Follow-up/Referrals: Zakia Lundberg at [facility] [Primary Care Provider] - Diet: Regular and Heart Healthy Diet Texture: Pureed (blended smooth) Addtl Attending Provider Instructions: Resume all medications as before Pending Studies at Discharge: No Stand-Alone Forms: My [facility] Skilled Items Patient informed of condition?: Yes DNR: Yes Discharge Level of Care: Skilled Communicable Disease: No Discharge Prognosis: Stable Lines: None Urinary Catheter: No Medications and DC Order Prescriptions: Continued acetaminophen [Tylenol] 325 mg Tablet 650 mg PO Q4 MDD 3 GRAMS APAP/24 HOURS PRN (Reason: Fever Or Pain) doxazosin 1 mg tablet 1 mg PO HS levothyroxine 50 mcg tablet 50 mcg PO QAM nitroglycerin 0.4 mg tablet, sublingual 0.4 mg sublingual DIRECTED PRN (Reason: Chest Pain) aspirin 81 mg Tablet,Chewable 81 mg PO QAM docusate sodium 100 mg Tablet 100 mg PO Q24H PRN (Reason: Constipation-GIVE ON DAY 2 IN NO BM) Rx Instructions: as needed for constipation escitalopram oxalate 10 mg tablet 15 mg PO QAM Saline Mist 0.65 % aerosol,spray 2 spray NA Q2H PRN (Reason: DRY NOSE/EPISTAXIS) amoxicillin-pot clavulanate 400-57 mg/5 mL suspension for reconstitution 10 ml PO DAILY Rx Instructions: give 10 ml bedtime for ten days 02/07-02/17 risperidone 1 mg/mL solution 1 mg PO DAILY Rx Instructions: 0.25 ml one time a day for dementia bisacodyl [Dulcolax (bisacodyl)] 10 mg Suppository 10 mg MA DAILY PRN (Reason: Constipation) Rx Instructions: give on 4th day of no bowel movement acetaminophen 650 mg MA Q4H PRN (Reason: temp>100) multivitamin [Multi-Vitamin] Tablet 1 tab PO QAM polyethylene glycol 3350 [Miralax] 17 gram Powder In Packet 17 g PO DAILY PRN (Reason: Constipation) acetaminophen [Tylenol Children's] 160 mg/5 mL Elixir 160 mg PO Q6H PRN (Reason: pain or fever) Discharge Orders: Discharge Order (Routine); Ordered 02/16/24 Ordered By: Mainor Rosen Admission Data Admit Date/Time: 02/14/24 05:27 Attending Provider: Mainor Rosen Admit Provider: Alisha Yates Primary Care Provider: Zakia Lundberg [facility] Other Providers: Alisha Yates; Zakia Lundberg [facility] Hospital Stay Data Consultations 02/14/24 04:43 ED Decision to Admit Stat Pending Results Patient Have Any Pending Studies at Discharge: No Discharge Instructions Given to Patient (Per Discharging Provider) Resume all medications as before Total Time Total Time Spent Total Time Spent (In Minutes): 50 minutes Coding Level of Care Code 86590 INP/OBS DISCH >30 MIN Diagnoses Sepsis A41.9 Fever R50.9 Pneumonia J18.9 Elevated troponin R79.89 Demand ischemia I24.89 Metabolic encephalopathy G93.41 Dementia F03.90
[2024-02-16 11:58] VITALS: BP 118/66; RESP 18; TEMP 96.8; O2SAT 94
--- NOTE | 2024-02-16 16:20 | Electrocardiogram Report ---
Test Reason : Blood Pressure : */* mmHG Vent. Rate : 61 BPM Atrial Rate : 61 BPM P-R Int : 198 ms QRS Dur : 190 ms QT Int : 498 ms P-R-T Axes : * -73 109 degrees QTcB Int : 501 ms AV dual-paced rhythm Abnormal ECG When compared with ECG of 10-Sep-2023 22:54, Vent. rate has decreased by 2 bpm Confirmed by Roosevelt Hobbs ([id number]) on 02/16/2024 4:20:21 PM Referred By: [facility] Confirmed By: Roosevelt Hobbs
== END 2024-02-16 14:41 | DRG 871 ==
LOC: EDINP 02:27 → ED 02:27 → SUATTDRO 05:27 → EDINP 05:38 → 3N 15:58

== ENCOUNTER 2024-10-30 11:05 | Inpatient (IN) ==
[2024-10-30] MEDS ORDERED: VANCOMYCIN HCL IV ONE (11:23)
[2024-10-30] MEDS ORDERED: VANCOMYCIN CONSULT ACTIVE PRN (11:23)
[2024-10-30] MEDS ORDERED: SODIUM CHLORIDE 0.9% IV ONE (11:23)
[2024-10-30] MEDS: SODIUM CHLORIDE 0.9% 500 ML IV ONE (11:35)
[2024-10-30] MEDS: PIPERACILLIN/TAZOBACTAM 4.5 GM/100 ML BAG IV ONE (11:54)
--- NOTE | 2024-10-30 11:54 | XRay Report ---
XR chest 1V portable CLINICAL HISTORY: Dyspnea COMPARISON STUDY: 02/16/2024 FINDINGS: Stable CABG and pacemaker. Stable prominent cardiomegaly without pulmonary vascular congest ion. Stable hyperexpanded lungs. No consolidation or pleural effusion seen. No pneumothorax. IMPRESSION: No acute findings seen. ACT 112: Negative or not required by law. Electronically signed by: Johnny Jordan M.D. 10/30/2024 11:53 AM
[2024-10-30 12:21] LABS: Alanine Aminotransferase 80.0 U/L (7-52); Albumin Globulin Ratio 0.8 (0.9-2); Alkaline Phosphatase 107.0 U/L (34-104); Anion Gap 9.0 (3-11); Bilirubin,Total 3.6 mg/dl (0.2-1.0); Blood Urea Nitrogen 53.0 mg/dl (6-23); Calcium 8.8 mg/dl (8.6-10.3); Carbon Dioxide 23.0 mmol/L (21-32); Chloride 121.0 mmol/L (98-107); Creatinine Clr Calc Pharmacy 46.6 ml/min; Globulin 3.3 gm/dl (2.5-4.0); Glucose 92.0 mg/dl (70-99(Fasting)); Magnesium 2.0 mg/dl (1.7-2.4); Potassium 3.6 mmol/L (3.5-5.1); Sodium 153.0 mmol/L (136-145); Total Protein 5.9 gm/dl (6.0-8.3)
[2024-10-30 12:36] LABS: Anisocytosis Present; Hematocrit (blood only) 29.7 % (42.0-52.0); Hemoglobin 8.8 g/dl (14.0-18.0); Immature Granulocytes # (auto) 0.12 K/uL (0.01-0.20); Immature Granulocytes % (auto) 2.0 %; Mean Corpuscular Hemoglobin 27.4 pg (25.0-34.0); Mean Corpuscular Volume 92.5 fL (80.0-100.0); Ovalocytes 1+; Platelet Count 74 K/uL (130-400); Polychromasia 2+; RDW Standard Deviation 62.0 fL (36.4-46.3); Red Blood Count 3.21 M/uL (4.70-6.10); Tear Drop Cells 1+; White Blood Count 5.95 K/ul (4.8-10.8)
[2024-10-30] MEDS: SODIUM CHLORIDE 0.9% 1,000 ML IV SCH (12:53)
[2024-10-30] MEDS: VANCOMYCIN HCL 1,250 MG in SODIUM CHLORIDE 0.9% 250 ML IV ONE (13:02)
[2024-10-30 13:16] LABS: Chlamydia pneumoniae PCR Not Detected (NotDetected); Coronavirus 229E PCR Not Detected (NotDetected); Coronavirus CoV-2 (COVID19)PCR Not Detected (NotDetected); Coronavirus HKU1 PCR Not Detected (NotDetected); Coronavirus NL63 PCR Not Detected (NotDetected); Coronavirus OC43PCR Not Detected (NotDetected); Human Metapneumovirus PCR Not Detected (NotDetected); Parainfluenza Virus 1 PCR Not Detected (NotDetected); Parainfluenza Virus 2 PCR Not Detected (NotDetected); Parainfluenza Virus 3 PCR Not Detected (NotDetected); Parainfluenza Virus 4 PCR Not Detected (NotDetected); Respiratory Syncytial VirusPCR Not Detected (NotDetected); Rhinovirus/Enterovirus PCR Not Detected (NotDetected)
--- NOTE | 2024-10-30 14:32 | CT Scan Report ---
CT OF THE ABDOMEN AND PELVIS WITHOUT CONTRAST CLINICAL HISTORY: Vomiting. COMPARISON STUDY: CT of the abdomen and pelvis July 25, 2021. Right upper quadrant ultrasound September 11, 2023. TECHNIQUE: Axial images of the abdomen and pelvis were obtained without IV contrast. Images were revi ewed in the axial, sagittal, and coronal planes. Automated exposure control was utilized for the parrish dy. A dose lowering technique was utilized adhering to the principles of ALARA. FINDINGS: Pacer leads are partially imaged. There are small bilateral pleural effusions. Mild right m iddle lobe ground glass opacity is partially imaged. Left lower lobe alveolar opacities are present. A 2.7 cm left breast nodular density on image 26 of 373 may represent gynecomastia when correlating w ith chest CT of September 11, 2023 although is indeterminate. Evaluation of the abdomen and pelvis is subop timal given lack of contrast, difficulty positioning and diffuse anasarca. Unenhanced images of the l iver, spleen, adrenal glands are unremarkable. Cystic lesions within the pancreatic head and uncinate process measure up to 1.7 cm. 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 No peripancreatic inflammation is present. There is no biliary or pancreatic ductal dilatation. The gallbladder is mildly distended. There is no evidence for a bowel obstruction. Moderate rectal wall thickening is present. Perirectal stranding is present. There is diffuse mesenteric stranding and a small amount of ascites within the abdomen. A 1.5 cm right renal pelvis calculus is present. There is mild right hydronephrosis. Low-at tenuation bilateral renal lesions favor cysts. Bladder is moderately distended. Small layering bladde r calculi are present. No lymphadenopathy is identified. Extensive vascular calcification is present. No acute fractures within the visualized skeletal structures are identified. IMPRESSION: 1. Suboptimal evaluation of the abdomen and pelvis given lack of contrast, difficulty positioning and diffuse anasarca. 2. No bowel obstruction. Moderate rectal wall thickening, a nonspecific finding. 3. Mild gallbladder distention. This can be assessed with right upper quadrant ultrasound. 4. Left lower lobe opacity which may represent pneumonia or atelectasis. Right middle lobe groundglas s opacities favor pneumonia or pulmonary edema. 5. 1.5 cm renal pelvis calculus. Mild right hydronephrosis. Mildly distended bladder which contains t iny calculi. 6. Cardiomegaly with small bilateral pleural effusions. ACT 112: Negative or not required by law. Electronically signed by: Bay Moctezuma M.D. 10/30/2024 2:29 PM
[2024-10-30] MEDS: DEXTROSE 5% 1,000 ML IV SCH (14:59)
--- NOTE | 2024-10-30 15:24 | History & Physical Report ---
Date of Service October 30, 2024 Assessment & Plan (1) Sepsis: (2) Dementia: (3) History of coronary artery bypass graft: (4) CKD (chronic kidney disease), stage III: (5) Hypothyroidism: (6) Dyslipidemia: Plan #Sepsis in an 89 yo male with elevated bilirrubin pointing towards a gallbladder problem. Will admit to med/surg Patient with history of CAD and quadruple bypass, but patient may still be a candidate for cholecystectomy. IDepending on Ultrasound findings, may also benfit from ERCP vs perc margarette tube if not deemed a candidate for surgery. Family is unsure if they would proceed with surgery. Tough patient is demented, he is still enjoying life, and talks at times. Family does not want him to go to comfort measures as of yet. #severe dementia: will continue supportive care will hold escitalopram. #hypothyroidism: placed on iv levothyroxine #CKD stage IIIb stable will monitor #CAD holding metoprolol, may need IV dose to prevent rebound tachycardia if unable to talk oral intake History of Present Illness Chief Complaint: lethargy Primary Care Provider: [facility] Manuel Lloyd is an 89yo male with history of CAD s/p CABG in 2001, HTN, HLP and Dementia presenting from [facility] with report of worsening lethargy. Patient's reports that 10 days ago, patient was having nausea and vomiting. This slowly progressed per the course of these 10 days with patient having more lethargy. He was eating less, showing signs of pain in right upper quadrant which began today. He would grimace with some postural changes or if touched in that area. Though non verbal patient's family state that he is enjoying life. Allergies Allergy/AdvReac Type Severity Reaction Status Date / Time No Known Allergies Allergy Verified 08/14/24 11:28 Home Medications Medication Instructions Recorded Confirmed Type acetaminophen 325 mg tablet 650 mg PO Q4 PRN Fever Or Pain 02/09/23 10/30/24 History (Tylenol) aspirin 81 mg chewable tablet 81 mg PO QAM 02/09/23 10/30/24 History docusate sodium 100 mg tablet 100 mg PO Q24H PRN Constipation 02/09/23 10/30/24 History doxazosin 1 mg tablet 1 mg PO HS 02/09/23 10/30/24 History levothyroxine 50 mcg tablet 50 mcg PO QAM 02/09/23 10/30/24 History nitroglycerin 0.4 mg sublingual 0.4 mg sublingual Q24H PRN Chest 02/09/23 10/30/24 History tablet Pain sodium chloride 0.65 % nasal spray 2 spray NA Q2H PRN DRY 09/11/23 10/30/24 History aerosol (Saline Mist) NOSE/EPISTAXIS acetaminophen 160 mg/5 mL oral 640 mg PO Q6H PRN pain or fever 02/14/24 10/30/24 History elixir acetaminophen 650 mg rectal 650 mg NJ Q8H PRN Discomfort ##0 02/14/24 10/30/24 History suppository bisacodyl 10 mg rectal suppository 10 mg NJ DAILY PRN Constipation 02/14/24 10/30/24 History (Dulcolax (bisacodyl)) polyethylene glycol 3350 17 gram 17 g PO DAILY PRN Constipation 02/14/24 10/30/24 History oral powder packet (Miralax) metoprolol tartrate 25 mg tablet 12.5 mg (1/2 x 25 mg) PO DAILY #90 06/15/24 10/30/24 Rx tabs acetaminophen 650 mg rectal 650 mg NJ Q4H PRN Temp/Pain 07/06/24 10/30/24 History suppository escitalopram oxalate 20 mg tablet 20 mg PO DAILY 07/06/24 10/30/24 History mineral oil-isopropyl myristat 1 applic topical BID Dry Skin on 07/06/24 10/30/24 History lotion hands zinc oxide-cod liver oil 40 % 1 applic topical DAILY Skin Care 07/06/24 10/30/24 History topical paste (Desitin) on BL Buttocks/Scrotum amoxicillin 400 mg-potassium 10 ml PO BID 10/30/24 10/30/24 History clavulanate 57 mg/5 mL oral suspension Past Med/Surg History Problem List Elevated LFTs (Acute) Pneumonia (Acute) Lethargy (Acute) Hypernatremia (Acute) Difficult intravenous access (Acute) Kidney stone Dementia (Acute) Metabolic encephalopathy Sepsis Demand ischemia Delirium Hypernatremia Goals of care, counseling/discussion Severe dementia Paroxysmal atrial fibrillation Kidney stone on right side Abdominal pain (Acute) LIAT (acute kidney injury) (Acute) Acute kidney injury Dehydration Hypotension History of coronary artery bypass graft 2002/CABG 4 VESSELS done at [facility] CKD (chronic kidney disease), stage III Hypothyroidism Cognitive change (Chronic) 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) Impaired fasting glucose (Chronic) Dyslipidemia (Chronic) 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) Hypertension (Chronic) Kidney stone on right side (Chronic) Kyphoscoliosis (Chronic) Multiple pulmonary nodules (Chronic) found on xray and no problems just watch Medical History Pneumonia Adrenal insufficiency Sepsis Elevated troponin I level Pacemaker 10/2018 -- [employer] follows dr simpson last check - 02/2019 CAD (coronary artery disease) Acute hypotension Short-term memory loss 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 Sinus bradycardia Encounter for pre-operative examination Raynauds syndrome MILD (EFFECTING FINGERS) Hypertension Hyperlipidemia Cellulitis of left hand Surgical History History of tonsillectomy History of inguinal hernia repair Hx of hernia repair repair of inguinal hernia History of cataract surgery RT/ LT History of colonoscopy Blocked tear duct repair of of tear duct History of cardiac cath 02/2002 and then needed cabg x 4 Family History Sister Family history of diabetes mellitus Hypertension Family/Other Family history of diabetes mellitus Father Acute myocardial infarction Denies family history of Ovarian cancer Prostate cancer Myocardial infarction Breast cancer Colorectal cancer Social History Smoking Status: Smoker, status unknown Second Hand Exposure: No; Do You Dip or Chew Tobacco: No (pt intubated); Hx Alcohol Use: No Hx Substance Use: No Preferred Language: Turkmen Communication Ability: Unable Communication Ability Comment: pt intubated Visual Impairment: Limited Hearing Ability: Normal Ssis Etl Developer Required: No Beliefs That Will Affect Care: None marital status: Current Living Situation: Family Current Living Situation Comment: Tamika Koehler current occupational status: retired How many Children do You have: 2 Other Information That Helps Us Care for You: Yes (pureed/thickened food diet if/when possible) Feels Safe at Home: Yes Safety Concerns: Feels Safe At This Time Childhood Exposure to Second-Hand Smoke: No caffeine: Yes (coffee and sometimes tea ) Dental Care, Regularly: Yes Physical Activity Frequency: Daily Physical Activity Frequency Comment: walks 40 mins a day Seatbelt Use: always Sunscreen Use: Yes Assistive Devices: Hospital Bed and Oxygen - Continuous Review of Systems Review of Systems: Unobtainable due to cognitive status Physical Exam Physical Exam: General: patient sleeping, no acute distress Skin: warm, dry, intact, no rashes or lesions HEENT: NC/AT, Heart: +S1/S2, regular, 3/6 KANNAN across precordium Lungs: equal air entry bilaterally Abd: +BS, soft, NT/ND, no masses/organomegaly/ascites Ext: warm, 2+ pulses in UE/LE bilaterally, no clubbing/cyanosis or edema Neuro: non-verbal Results & Data Results & Data Vital Signs (Past 12 Hours) Vital Signs Temp Pulse Pulse Resp BP BP Pulse Ox 10/30/24 15:00 60 14 135/79 99 10/30/24 13:00 61 24 116/74 97 10/30/24 12:32 60 14 125/77 94 10/30/24 11:41 36.9 C 60 14 147/84 H 97 10/30/24 11:41 10/30/24 11:40 61 18 145/81 H 97 10/30/24 11:36 64 20 96 10/30/24 11:36 88 L 10/30/24 11:30 60 20 145/81 H 96 10/30/24 11:29 61 O2 Del Method O2 Flow Rate 10/30/24 15:00 Nasal Cannula 3 10/30/24 13:00 10/30/24 12:32 10/30/24 11:41 Nasal Cannula 2 10/30/24 11:41 Nasal Cannula 2 10/30/24 11:40 Nasal Cannula 2 10/30/24 11:36 Nasal Cannula 2 10/30/24 11:36 Nasal Cannula 0 10/30/24 11:30 10/30/24 11:29 PG Care Time/CCT Total # of Minutes Spent Total Time Spent with Patient: Total time spent is greater than 50% in coordination of care (as documented) at patient's floor/unit and/or counseling patient: Coding Level of Care Code 70414 INT INP/OBS CARE 3/75MIN Diagnoses Sepsis A41.9 Dementia F03.90 History of coronary artery bypass graft Z95.1 CKD (chronic kidney disease), stage III N18.30 Hypothyroidism E03.9 Dyslipidemia E78.5
--- NOTE | 2024-10-30 15:39 | Emergency Department Note ---
Impression & Plan Lethargy, Dementia, Pneumonia, Elevated LFTs ED Provider Note NAME: TITA MCKEON AGE: 89 SEX: Male INFORMANT: Patient's ED PROVIDER(S): Bhanu Talbot MD CHIEF COMPLAINT: Lethargy and shortness of breath PLAN: Disposition: Admitted Outpatient prescription management: none Referral: None MEDICAL DECISION MAKING: Patient presented due to concerns about possible aspiration pneumonia. He has very advanced dementia and patient is nonverbal so he cannot really help with any historical points. Chest x-ray was not overtly concerning for pneumonia. Patient was maintaining his O2 saturation on a few liters of nasal cannula oxygen. He did not appear to be in any significant distress. His CBC was unremarkable. Chemistry panel and cardiac workup reveals a mild elevation of his BNP which is consistent with prior. He is dehydrated and has hypernatremia. Patient did receive saline hydration here. Because of the outpatient treatment and imaging concerning for aspiration the patient underwent treatment with Zosyn and vancomycin. Blood work also revealed elevated bilirubin and LFTs. Further evaluation and management in the hospital will be necessary. CT scan of the abdomen pelvis as well as ultrasound ordered. Consultation was made with Dr. Jax Barrett the [facility] service. Case discussed and diagnostics were reviewed. Patient was evaluated in the ER for further management. Care/management discussed with: Hospitalist, protective services case worker Level of care consideration(s): After review of the information above and other included data, I feel the patient requires escalation of care to admission Triage Nursing notes: reviewed and agree them. Vital Signs: reviewed and remarkable for no significant abnormalities Additional History obtained from: Patient's Chronic Medical/Social Conditions affecting care: Advanced dementia Prior/ Outside/ External records reviewed: none Differential Diagnosis: Infection, hypoglycemia, electrolyte abnormalities, overdose, toxicologic, cardiac sources, intracerebral event, neurologic, trauma, as well as other pathologies. Diagnostics, independently interpreted by me: ECG: Twelve-lead ECG reveals an AV dual paced rhythm at [address] bpm. PVC present. No ST elevation Cardiac Monitoring: Cardiac monitoring ordered by me: The patient was placed on continuous cardiac monitoring and observed. It revealed a paced rhythm at 60 bpm Medical decision rules: none Imaging studies: Chest x-ray as noted above. No lobar infiltrates present. I refer you to the EMR for further details. HPI: 89 year old Male arrives for evaluation of shortness of breath and lethargy. This started over the last several days and is worsening. is present helps with the history. Patient was seen in the emergency department due to concerns for dehydration and lack of his facility obtaining IV access. Midline was placed. states after discharge he was back to his facility. The following day he had a vomiting episode. They did have concerns about aspiration. Patient was receiving hydration as well as IV Rocephin. Outpatient x-ray from yesterday did raise concerns about aspiration pneumonia. notes patient has advanced dementia. He is for the most part nonverbal and bedbound. On detailed discussion with the the patient is a DNR/DNI. History is limited secondary to the patient's mental status and dementia. PAST MEDICAL HISTORY: See Below, dementia, pneumonia, sepsis PAST SURGICAL HISTORY: See Below, pacemaker SOCIAL HISTORY: See Below, disabled HOME MEDICATIONS: See Below ALLERGIES: See Below VITALS: See Below PHYSICAL EXAMINATION: GENERAL: Awake but lethargic. Older than stated age-appearing, in no distress HENT: Normocephalic, atraumatic. Oropharynx unremarkable. EYES: Normal conjunctiva. Sclera non-icteric. NECK: Inspection normal. Non-tender. Supple. No nuchal rigidity. FROM. No masses. RESPIRATORY: Diminished in the bases. No wheezes. No rales. Normal respiratory effort. CARDIAC: Normal rate. Normal rhythm. Extremities warm and well perfused. Pulses equal. No JVD. GI: Soft, non-distended. No obvious tenderness to palpation. No rebound or guarding. No masses. RECTAL: Deferred. MUSCULOSKELETAL: Atraumatic. The back is kyphotic on inspection without obvious abnormality. There is no CVA tenderness to palpation. No joint edema. LOWER EXTREMITIES: Calves are equal size bilaterally and non-tender. 1+ pedal edema. No discoloration. NEURO: Demented and altered sensorium. Patient is not following commands. Contractures noted in the extremities. Generalized muscular atrophy present throughout. Patient has edema of the hands noted bilaterally. SKIN: No rash or jaundice noted. 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 VESSELS done at [place] CKD (chronic kidney disease), stage III Hypothyroidism Cognitive change (Chronic) 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) Impaired fasting glucose (Chronic) Dyslipidemia (Chronic) 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) Hypertension (Chronic) Kidney stone on right side (Chronic) Kyphoscoliosis (Chronic) Multiple pulmonary nodules (Chronic) found on xray and no problems just watch Medical History Adrenal insufficiency Sepsis Elevated troponin I level Pacemaker 10/2018 -- [employer] follows dr simpson last check - 02/2019 CAD (coronary artery disease) Acute hypotension Short-term memory loss Kidney stone 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 Sinus bradycardia Encounter for pre-operative examination Raynauds syndrome MILD (EFFECTING FINGERS) Hypertension Hyperlipidemia Cellulitis of left hand Surgical History History of tonsillectomy History of inguinal hernia repair Hx of hernia repair repair of inguinal hernia History of cataract surgery RT/ LT History of colonoscopy Blocked tear duct repair of of tear duct History of cardiac cath 02/2002 and then needed cabg x 4 Family History Sister Family history of diabetes mellitus Hypertension Family/Other Family history of diabetes mellitus Father Acute myocardial infarction Denies family history of Ovarian cancer Prostate cancer Myocardial infarction Breast cancer Colorectal cancer Social History Smoking Status: Never smoker Second Hand Exposure: No; Do You Dip or Chew Tobacco: No (pt intubated); Hx Alcohol Use: No Hx Substance Use: No Preferred Language: Georgian Communication Ability: Unable Communication Ability Comment: pt intubated Visual Impairment: Limited Hearing Ability: Normal Architectural Superintendent Required: No Beliefs That Will Affect Care: None marital status: Current Living Situation: Retirement Current Living Situation Comment: [facility] current occupational status: retired How many Children do You have: 2 Feels Safe at Home: Yes Childhood Exposure to Second-Hand Smoke: No caffeine: Yes (coffee and sometimes tea ) Dental Care, Regularly: Yes Physical Activity Frequency: Daily Physical Activity Frequency Comment: walks 40 mins a day Seatbelt Use: always Sunscreen Use: Yes Assistive Devices: Oxygen - at Night Allergies Allergies Allergy/AdvReac Type Severity Reaction Status Date / Time No Known Allergies Allergy Verified 08/14/24 11:28 Home Meds Home Medications Medication Instructions Recorded Confirmed acetaminophen 325 mg tablet 650 mg PO Q4 PRN Fever Or Pain 02/09/23 10/30/24 (Tylenol) aspirin 81 mg chewable tablet 81 mg PO QAM 02/09/23 10/30/24 docusate sodium 100 mg tablet 100 mg PO Q24H PRN Constipation 02/09/23 10/30/24 doxazosin 1 mg tablet 1 mg PO HS 02/09/23 10/30/24 levothyroxine 50 mcg tablet 50 mcg PO QAM 02/09/23 10/30/24 nitroglycerin 0.4 mg sublingual 0.4 mg sublingual Q24H PRN Chest 02/09/23 10/30/24 tablet Pain sodium chloride 0.65 % nasal spray 2 spray NA Q2H PRN DRY 09/11/23 10/30/24 aerosol (Saline Mist) NOSE/EPISTAXIS acetaminophen 160 mg/5 mL oral 640 mg PO Q6H PRN pain or fever 02/14/24 10/30/24 elixir acetaminophen 650 mg rectal 650 mg MS Q8H PRN Discomfort ##0 02/14/24 10/30/24 suppository bisacodyl 10 mg rectal suppository 10 mg MS DAILY PRN Constipation 02/14/24 10/30/24 (Dulcolax (bisacodyl)) polyethylene glycol 3350 17 gram 17 g PO DAILY PRN Constipation 02/14/24 10/30/24 oral powder packet (Miralax) acetaminophen 650 mg rectal 650 mg MS Q4H PRN Temp/Pain 07/06/24 10/30/24 suppository escitalopram oxalate 20 mg tablet 20 mg PO DAILY 07/06/24 10/30/24 mineral oil-isopropyl myristat 1 applic topical BID Dry Skin on 07/06/24 10/30/24 lotion hands zinc oxide-cod liver oil 40 % 1 applic topical DAILY Skin Care 07/06/24 10/30/24 topical paste (Desitin) on BL Buttocks/Scrotum amoxicillin 400 mg-potassium 10 ml PO BID 10/30/24 10/30/24 clavulanate 57 mg/5 mL oral suspension Previous Rx's Medication Instructions Recorded metoprolol tartrate 25 mg tablet 12.5 mg (1/2 x 25 mg) PO DAILY #90 06/15/24 tabs Results & Data (ED) Vital Signs Vital Signs - 24 hr 10/30/24 11:29 10/30/24 11:30 10/30/24 11:36 Temperature Temperature Source Pulse Rate 61 60 Pulse Rate [Apical] Pulse Rhythm Pulse Rhythm [Apical] Pulse Strength [Apical] Respiratory Rate 20 Respiratory Effort / Characteristics Respiratory Depth Respiratory Pattern Blood Pressure 145/81 H Blood Pressure [Right Arm] Blood Pressure Mean 110 Blood Pressure Mean [Right Arm] Blood Pressure Position [Right Arm] Pulse Oximetry 96 88 L Oxygen Delivery Method Nasal Cannula Oxygen Flow Rate 0 Sepsis Recent Fever Within 48 Hours Sepsis New/Unexplained Change in Mental Status Sepsis Action Taken by Nursing Oxygen Flow Rate - Titration 2 Pulse Oximetry Post Tiitration 96 10/30/24 11:36 10/30/24 11:40 10/30/24 11:41 Temperature Temperature Source Pulse Rate 64 61 Pulse Rate [Apical] Pulse Rhythm Regular Pulse Rhythm [Apical] Pulse Strength [Apical] Respiratory Rate 20 18 Respiratory Effort / Characteristics Labored Respiratory Depth Shallow Respiratory Pattern Regular Blood Pressure 145/81 H Blood Pressure [Right Arm] Blood Pressure Mean 102 Blood Pressure Mean [Right Arm] Blood Pressure Position [Right Arm] Pulse Oximetry 96 97 Oxygen Delivery Method Nasal Cannula Nasal Cannula Nasal Cannula Oxygen Flow Rate 2 2 2 Sepsis Recent Fever Within 48 Hours Sepsis New/Unexplained Change in Mental Status Sepsis Action Taken by Nursing Oxygen Flow Rate - Titration Pulse Oximetry Post Tiitration 10/30/24 11:41 10/30/24 12:32 10/30/24 13:00 Temperature 36.9 C Temperature Source Axillary Pulse Rate 60 60 61 Pulse Rate [Apical] Pulse Rhythm Pulse Rhythm [Apical] Pulse Strength [Apical] Respiratory Rate 14 14 24 Respiratory Effort / Characteristics Labored Respiratory Depth Shallow Respiratory Pattern Blood Pressure 147/84 H 125/77 116/74 Blood Pressure [Right Arm] Blood Pressure Mean 105 105 95 Blood Pressure Mean [Right Arm] Blood Pressure Position [Right Arm] Pulse Oximetry 97 94 97 Oxygen Delivery Method Nasal Cannula Oxygen Flow Rate 2 Sepsis Recent Fever Within 48 Hours No Sepsis New/Unexplained Change in Mental Status N/A Sepsis Action Taken by Nursing No Action Required Oxygen Flow Rate - Titration Pulse Oximetry Post Tiitration 10/30/24 15:00 Temperature Temperature Source Pulse Rate Pulse Rate [Apical] 60 Pulse Rhythm Pulse Rhythm [Apical] Regular Pulse Strength [Apical] Normal Respiratory Rate 14 Respiratory Effort / Characteristics Non-Labored Spontaneous Respiratory Depth Normal Respiratory Pattern Regular Blood Pressure Blood Pressure [Right Arm] 135/79 Blood Pressure Mean Blood Pressure Mean [Right Arm] 97 Blood Pressure Position [Right Arm] Lying Pulse Oximetry 99 Oxygen Delivery Method Nasal Cannula Oxygen Flow Rate 3 Sepsis Recent Fever Within 48 Hours Sepsis New/Unexplained Change in Mental Status Sepsis Action Taken by Nursing Oxygen Flow Rate - Titration Pulse Oximetry Post Tiitration Laboratory Data 10/30/24 11:20 10/30/24 14:36 Lab Results 10/30/24 10/30/24 10/30/24 Range/Units 11:20 11:30 14:36 WBC 5.95 (4.8-10.8) K/ul RBC 3.21 L (4.70-6.10) M/uL Hgb 8.8 L (14.0-18.0) g/dl Hct 29.7 L (42.0-52.0) % MCV 92.5 (80.0-100.0) fL MCH 27.4 (25.0-34.0) pg MCHC 29.6 L (32.0-36.0) g/dL RDW Std Deviation 62.0 H (36.4-46.3) fL RDW Coeff of Layo 19.9 H (11.5-14.5) % Plt Count 74 L (130-400) K/uL MPV 12.0 (9.4-12.4) fL Immature Gran % (Auto) 2.0 % Neut % (Auto) 77.6 % Lymph % (Auto) 13.4 % [place] % (Auto) 5.7 % Eos % (Auto) 0.8 % Baso % (Auto) 0.5 % Neut # (Auto) 4.61 (1.40-6.50) K/uL Lymph # (Auto) 0.80 L (1.20-3.40) K/uL [place] # (Auto) 0.34 (0.11-0.59) K/uL Eos # (Auto) 0.05 (0.00-0.50) K/uL Baso # (Auto) 0.03 (0.00-0.20) K/uL Immature Gran # (Auto) 0.12 (0.01-0.20) K/uL Absolute Nucleated RBC 0.23 H (0.00-0.12) K/uL Nucleated RBC % (auto) 3.9 % Polychromasia 2+ Anisocytosis Present Tear Drop Cells 1+ Ovalocytes 1+ Sodium 153 H 154 H (136-145) mmol/L Potassium 3.6 (3.5-5.1) mmol/L Chloride 121 H (98-107) mmol/L Carbon Dioxide 23 (21-32) mmol/L Anion Gap 9 (3-11) BUN 53 H (6-23) mg/dl Creatinine 0.97 (0.6-1.4) mg/dl Est Cr Clr Drug Dosing 46.6 ml/min eGFR 74.62 BUN/Creatinine Ratio 54.6 H (10-20) Glucose 92 (70-99(Fasting)) mg/dl Lactate 2.0 (0.4-2.0) mmol/L Calcium 8.8 (8.6-10.3) mg/dl Magnesium 2.0 (1.7-2.4) mg/dl Total Bilirubin 3.6 H (0.2-1.0) mg/dl Direct Bilirubin 2.0 H (0-0.2) mg/dl AST 100 H (13-39) U/L ALT 80 H (7-52) U/L Alkaline Phosphatase 107 H (34-104) U/L Troponin I High Sens 33.8 H 33.2 H (0-20) pg/ml B-Natriuretic Peptide 1660 H (0-100) pg/ml Total Protein 5.9 L (6.0-8.3) gm/dl Albumin 2.6 L (3.4-5.0) gm/dl Globulin 3.3 (2.5-4.0) gm/dl Albumin/Globulin Ratio 0.8 L (0.9-2) Adenovirus (PCR) Not Detected (NotDetected) B. pertussis DNA (PCR) Not Detected (NotDetected) B.parapertussis DNA PCR Not Detected (NotDetected) C. pneumoniae DNA (PCR) Not Detected (NotDetected) Coronavirus OC43 (PCR) Not Detected (NotDetected) Coronavirus HKU1 (PCR) Not Detected (NotDetected) Coronavirus 229E (PCR) Not Detected (NotDetected) SARS-CoV-2 (PCR) Not Detected (NotDetected) Coronavirus NL63 (PCR) Not Detected (NotDetected) Human Metapneumovir PCR Not Detected (NotDetected) Influenza Type A (PCR) Not Detected (NotDetected) Influenza Type B (PCR) Not Detected (NotDetected) M. pneumoniae (PCR) Not Detected (NotDetected) Parainfluenza 1 (PCR) Not Detected (NotDetected) Parainfluenza 2 (PCR) Not Detected (NotDetected) Parainfluenza 3 (PCR) Not Detected (NotDetected) Parainfluenza 4 (PCR) Not Detected (NotDetected) RSV (PCR) Not Detected (NotDetected) Entero/Rhino (PCR) Not Detected (NotDetected) Administered Medications Dextrose (D5w) 1,000 mls @ 80 mls/hr IV .[id number] [facility] Stop: 10/31/24 02:29 Last Admin: 10/30/24 14:59 Dose: 80 mls/hr [place] [facility] [place]ations Piperacillin Sod/Tazobactam Sod (Zosyn) 4.5 gm in 100 mls @ 200 mls/hr IV NOW ONE; Protocol Stop: 10/30/24 11:52 Last Infusion: 10/30/24 12:45 Dose: Infused Documented By: Admin: 10/30/24 11:54 Dose: 200 mls/hr [place]ed [place] [facility] [place] Sodium Chloride (Nss) 500 mls @ 999 mls/hr IV .Q31M ONE Stop: 10/30/24 11:58 Last Infusion: 10/30/24 12:54 Dose: Infused Documented By: Admin: 10/30/24 11:35 Dose: 999 mls/hr Documented By[place] [facility] [place] Sodium Chloride (Nss) 1,000 mls @ 125 mls/hr IV .Q8H [facility] Stop: 11/02/24 11:29 Last Infusion: 10/30/24 15:11 Dose: Infused Documented By: Admin: 10/30/24 12:53 Dose: 125 mls/hr Documented By: ANT Vancomycin HCl 1,250 mg/ (Sodium Chloride) 275 mls @ 200 mls/hr IV NOW ONE Stop: 10/30/24 13:37 Last Infusion: 10/30/24 14:59 Dose: Infused Documented By: Admin: 10/30/24 13:02 Dose: 200 mls/hr Documented By: ANT Imaging Data Radiologist's Impression: Chest X-Ray 10/30/24 11:17 XR chest 1V portable CLINICAL HISTORY: Dyspnea COMPARISON STUDY: 02/16/2024 FINDINGS: Stable CABG and pacemaker. Stable prominent cardiomegaly without pulmonary vascular congestion. Stable hyperexpanded lungs. No consolidation or pleural effusion seen. No pneumothorax. IMPRESSION: No acute findings seen. ACT 112: Negative or not required by law. Electronically signed by: Johnny Jordan M.D. 10/30/2024 11:53 AM Abdomen/Pelvis CT 10/30/24 13:02 CT OF THE ABDOMEN AND PELVIS WITHOUT CONTRAST CLINICAL HISTORY: Vomiting. COMPARISON STUDY: CT of the abdomen and pelvis July 25, 2021. Right upper quadrant ultrasound September 11, 2023. TECHNIQUE: Axial images of the abdomen and pelvis were obtained without IV contrast. Images were reviewed in the axial, sagittal, and coronal planes. Automated exposure control was utilized for the study. A dose lowering technique was utilized adhering to the principles of ALARA. FINDINGS: Pacer leads are partially imaged. There are small bilateral pleural effusions. Mild right middle lobe ground glass opacity is partially imaged. Left lower lobe alveolar opacities are present. A 2.7 cm left breast nodular density on image 26 of 373 may represent gynecomastia when correlating with chest CT of September 11, 2023 although is indeterminate. Evaluation of the abdomen and pelvis is suboptimal given lack of contrast, difficulty positioning and diffuse anasarca. Unenhanced images of the liver, spleen, adrenal glands are unremarkable. Cystic lesions within the pancreatic head and uncinate process measure up to 1.7 cm. 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 No peripancreatic inflammation is present. There is no biliary or pancreatic ductal dilatation. The gallbladder is mildly distended. There is no evidence for a bowel obstruction. Moderate rectal wall thickening is present. Perirectal stranding is present. There is diffuse mesenteric stranding and a small amount of ascites within the abdomen. A 1.5 cm right renal pelvis calculus is present. There is mild right hydronephrosis. Low- attenuation bilateral renal lesions favor cysts. Bladder is moderately distended. Small layering bladder calculi are present. No lymphadenopathy is identified. Extensive vascular calcification is present. No acute fractures within the visualized skeletal structures are identified. IMPRESSION: 1. Suboptimal evaluation of the abdomen and pelvis given lack of contrast, difficulty positioning and diffuse anasarca. 2. No bowel obstruction. Moderate rectal wall thickening, a nonspecific finding. 3. Mild gallbladder distention. This can be assessed with right upper quadrant ultrasound. 4. Left lower lobe opacity which may represent pneumonia or atelectasis. Right middle lobe groundglass opacities favor pneumonia or pulmonary edema. 5. 1.5 cm renal pelvis calculus. Mild right hydronephrosis. Mildly distended bladder which contains tiny calculi. 6. Cardiomegaly with small bilateral pleural effusions. ACT 112: Negative or not required by law. Electronically signed by: Bay Moctezuma M.D. 10/30/2024 2:29 PM Discharge Plan Visit Data Chief Complaint: Shortness of Breath/Dyspnea ED Provider: Bhanu Talbot Discharge Problem: Lethargy, Dementia, Pneumonia, Elevated LFTs Patient Disposition: Home - Self-Care Condition: Fair Forms Stand Alone Forms: [facility], Important Visit Information Prescriptions Prescriptions: No Action metoprolol tartrate 25 mg tablet 12.5 mg PO DAILY Qty: 90 3RF acetaminophen [Tylenol] 325 mg Tablet 650 mg PO Q4 MDD 3 GRAMS APAP/24 HOURS PRN (Reason: Fever Or Pain) doxazosin 1 mg tablet 1 mg PO HS levothyroxine 50 mcg tablet 50 mcg PO QAM nitroglycerin 0.4 mg tablet, sublingual 0.4 mg sublingual Q24H PRN (Reason: Chest Pain) aspirin 81 mg Tablet,Chewable 81 mg PO QAM docusate sodium 100 mg Tablet 100 mg PO Q24H PRN (Reason: Constipation) Rx Instructions: Give on day 2 of no BM in the AM acetaminophen 650 mg Suppository 650 mg MS Q4H MDD 3gm/24hr PRN (Reason: Temp/Pain) Eucerin Lotion 1 applic TOPICAL BID escitalopram oxalate 20 mg tablet 20 mg PO DAILY Desitin 40 % Paste 1 applic TOPICAL DAILY Rx Instructions: May also use as needed throughout the day Saline Mist 0.65 % aerosol,spray 2 spray NA Q2H PRN (Reason: DRY NOSE/EPISTAXIS) acetaminophen 650 mg Suppository 650 mg MS Q8H PRN (Reason: Discomfort) Qty: 0 bisacodyl [Dulcolax (bisacodyl)] 10 mg Suppository 10 mg MS DAILY PRN (Reason: Constipation) Rx Instructions: give on 4th day in the morning if no bowel movement polyethylene glycol 3350 [Miralax] 17 gram Powder In Packet 17 g PO DAILY PRN (Reason: Constipation) Rx Instructions: Give on 3rd day of no BM acetaminophen 160 mg/5 mL Elixir 640 mg PO Q6H MDD 3gm/24hr PRN (Reason: pain or fever) amoxicillin-pot clavulanate 400-57 mg/5 mL suspension for reconstitution 10 ml PO BID Rx Instructions: Start Date 10/28/24 - End Date 11/02/24 Referrals Referrals: Zakia Lundberg [place] [Primary Care Provider] -
--- NOTE | 2024-10-30 16:03 | Ultrasound Report ---
ULTRASOUND RIGHT UPPER QUADRANT ABDOMEN CLINICAL HISTORY: Elevated hepatic transaminases. COMPARISON STUDY: Abdominal CT dated 10/30/2024 and 03/15/2019 TECHNIQUE: Real-time, grayscale, and color flow sonography of the right upper quadrant of the abdomen was performed. Images are reviewed in the transverse and longitudinal planes. FINDINGS: Liver: The liver is normal in size and echotexture. There is no intrahepatic biliary ductal dilatatio n. The main portal vein is patent. A subcentimeter hepatic cyst is incidentally noted. Dilatation of the IVC and hepatic veins suggests cardiac dysfunction. Gallbladder: The gallbladder is distended and contains layering gallstones as well as biliary sludge. There is no gallbladder wall thickening or pericholecystic fluid. A sonographic Valenzuela's sign is re portedly absent. The common bile duct measures up to 0.5 cm in diameter. 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 Visualized portions of the angel creatic head and body are otherwise grossly normal in appearance. The splenic vein is patent. Right kidney: Survey images of the right kidney demonstrate normal size and echotexture. There is a 1 .3 cm shadowing calculus in the right renal pelvis. There is mild to moderate right-sided hydronephro sis. A 3.3 cm cyst is noted in the right upper pole. Ascites: None. IMPRESSION: 1. Distended gallbladder with layering gallstones and biliary sludge. There is no convincing sonograp hic evidence of acute cholecystitis. If there is strong clinical concern for acute cholecystitis this could be further assessed with a nuclear hepatobiliary scan. 2. There is a 1.3 cm calculus in the right renal pelvis with mild/moderate right-sided hydronephrosis . This likely causes at least intermittent obstruction. 3. There is dilatation of the IVC and hepatic veins suggesting cardiac dysfunction/congestive hepatop athy. Correlate clinically. 4. Additional findings as above. ACT 112: Negative or not required by law. Electronically signed by: Gee Dawson M.D. 10/30/2024 4:00 PM
[2024-10-30 18:09] LABS: Appearance Urine Cloudy (Clear); Epithelial Cell Urine Auto 0-2 /hpf (0-2); Glucose Urine UA Negative (Negative); WBC Urine Automated >50 /hpf (0-5)
[2024-10-30 18:19] LABS: Bacteria Urine Automated 1+ (None Seen); Cast Urine Automated 0-2 /lpf (0-2)
[2024-10-30] MEDS: PIPERACILLIN/TAZOBACTAM 4.5 GM/100 ML BAG IV SCH (19:53)
[2024-10-30] MEDS: ACETAMINOPHEN 650 MG SUPP PR PRN (21:50)
[2024-10-31] MEDS: VANCOMYCIN HCL 1,000 MG/270 ML BAG IV SCH (08:16)
[2024-10-31 08:28] LABS: Alanine Aminotransferase 58.0 U/L (7-52); Albumin Globulin Ratio 0.7 (0.9-2); Alkaline Phosphatase 95.0 U/L (34-104); Anion Gap 6.0 (3-11); Bilirubin,Total 3.3 mg/dl (0.2-1.0); Blood Urea Nitrogen 43.0 mg/dl (6-23); Calcium 8.4 mg/dl (8.6-10.3); Carbon Dioxide 25.0 mmol/L (21-32); Chloride 123.0 mmol/L (98-107); Creatinine Clr Calc Pharmacy 47.8 ml/min; Globulin 3.1 gm/dl (2.5-4.0); Glucose 101.0 mg/dl (70-99(Fasting)); Potassium 3.4 mmol/L (3.5-5.1); Sodium 154.0 mmol/L (136-145); Total Protein 5.4 gm/dl (6.0-8.3)
[2024-10-31 08:41] LABS: Hematocrit (blood only) 32.1 % (42.0-52.0); Hemoglobin 9.6 g/dl (14.0-18.0); Mean Corpuscular Hemoglobin 27.4 pg (25.0-34.0); Mean Corpuscular Volume 91.7 fL (80.0-100.0); Platelet Count 59 K/uL (130-400); RDW Standard Deviation 64.2 fL (36.4-46.3); Red Blood Count 3.50 M/uL (4.70-6.10); White Blood Count 6.77 K/ul (4.8-10.8)
[2024-10-31] MEDS: BUTT PASTE (ZINC OXIDE 16%) 171 APPLN/57 GM JAR TOP SCH (08:53)
[2024-10-31] MEDS: LEVOTHYROXINE SODIUM 37.5 MCG in SYRINGE 0 ML IV SCH (08:53)
--- NOTE | 2024-10-31 09:15 | Surgery Consultation ---
Date of Consultation October 31, 2024 Assessment & Plan (1) Elevated LFTs: (2) Pneumonia: (3) Dementia: (4) Cholelithiasis: Plan 89 yo male with severe dementia who presented to ED from nursing facility due to increased lethargy, vomting, and decreased appetite. CT scan and ultrasound showing gallstones and distended gallbladder however no evidence of acute cholecystitis. labs concerning for biliary obstruction with elevated t. bili, d. bili, lfts and alk phos. GI consulted, recommend MRCP for further evaluation. Agree with further biliary system work-up. Discussed with family that cholecystectomy would not treat biliary obstruction. As of now no signs of needing cholecystectomy , if gallbladder were to become inflamed would not recommend surgical intervention based on patients age, severe dementia, medical comorbidities. Could consider perc margarette tube vs axios stent placement if gallbladder were to need drained. Discussed with hospitalist. Discussed with Dr. Pratt who agrees with above. History of Present Illness Reason for Consultation: vomiting Requesting Physician: Dr. Barrett Attending Physician: Lui José MD History of Present Illness Manuel is a 89 yo male with history of severe dementia who does not perform any ADLS independently. CAD s/p bypass in 2001, CAD, CKD stage III, dyslipidemia, afib, recurrent aspiration pneumonia who presented to ED with increased lethargy noticed by family and [facility] staff with history of vomiting and decreased appetite. Labs showed elevated t. bili of 360 and direct bili of 2.0 along with elevated LFTS and alk phos. Ultrasound and CT scan showing distended gallbladd er and no evidence of acute cholecystitis on imaging. Family at bedside provides all of this history has had elevated t. bilirubin but outpatient labs showed normal bilirubin in June 2024 and has been trending up and spiked in the past week. Allergies Allergy/AdvReac Type Severity Reaction Status Date / Time No Known Allergies Allergy Verified 08/14/24 11:28 Home Medications Medication Instructions Recorded Confirmed Type acetaminophen 325 mg tablet 650 mg PO Q4 PRN Fever Or Pain 02/09/23 10/30/24 History (Tylenol) aspirin 81 mg chewable tablet 81 mg PO QAM 02/09/23 10/30/24 History docusate sodium 100 mg tablet 100 mg PO Q24H PRN Constipation 02/09/23 10/30/24 History doxazosin 1 mg tablet 1 mg PO HS 02/09/23 10/30/24 History levothyroxine 50 mcg tablet 50 mcg PO QAM 02/09/23 10/30/24 History nitroglycerin 0.4 mg sublingual 0.4 mg sublingual Q24H PRN Chest 02/09/23 10/30/24 History tablet Pain sodium chloride 0.65 % nasal spray 2 spray NA Q2H PRN DRY 09/11/23 10/30/24 History aerosol (Saline Mist) NOSE/EPISTAXIS acetaminophen 160 mg/5 mL oral 640 mg PO Q6H PRN pain or fever 02/14/24 10/30/24 History elixir acetaminophen 650 mg rectal 650 mg SD Q8H PRN Discomfort ##0 02/14/24 10/30/24 History suppository bisacodyl 10 mg rectal suppository 10 mg SD DAILY PRN Constipation 02/14/24 10/30/24 History (Dulcolax (bisacodyl)) polyethylene glycol 3350 17 gram 17 g PO DAILY PRN Constipation 02/14/24 10/30/24 History oral powder packet (Miralax) metoprolol tartrate 25 mg tablet 12.5 mg (1/2 x 25 mg) PO DAILY #90 06/15/24 10/30/24 Rx tabs acetaminophen 650 mg rectal 650 mg SD Q4H PRN Temp/Pain 07/06/24 10/30/24 History suppository escitalopram oxalate 20 mg tablet 20 mg PO DAILY 07/06/24 10/30/24 History mineral oil-isopropyl myristat 1 applic topical BID Dry Skin on 07/06/24 10/30/24 History lotion hands zinc oxide-cod liver oil 40 % 1 applic topical DAILY Skin Care 07/06/24 10/30/24 History topical paste (Desitin) on BL Buttocks/Scrotum amoxicillin 400 mg-potassium 10 ml PO BID 10/30/24 10/30/24 History clavulanate 57 mg/5 mL oral suspension Patient History Medical History Pneumonia Adrenal insufficiency Sepsis Elevated troponin I level Pacemaker 10/2018 -- [employer] follows dr simpson last check - 02/2019 CAD (coronary artery disease) Acute hypotension Short-term memory loss 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 Sinus bradycardia Encounter for pre-operative examination Raynauds syndrome MILD (EFFECTING FINGERS) Hypertension Hyperlipidemia Cellulitis of left hand Surgical History History of tonsillectomy History of inguinal hernia repair Hx of hernia repair repair of inguinal hernia History of cataract surgery RT/ LT History of colonoscopy Blocked tear duct repair of of tear duct History of cardiac cath 02/2002 and then needed cabg x 4 Family History Sister Family history of diabetes mellitus Hypertension Family/Other Family history of diabetes mellitus Father Acute myocardial infarction Denies family history of Ovarian cancer Prostate cancer Myocardial infarction Breast cancer Colorectal cancer Social History Smoking Status: Smoker, status unknown Second Hand Exposure: No; Do You Dip or Chew Tobacco: No (pt intubated); Hx Alcohol Use: No Hx Substance Use: No Preferred Language: Indonesian Communication Ability: Unable Communication Ability Comment: pt intubated Visual Impairment: Limited Hearing Ability: Normal Director Environmental Required: No Beliefs That Will Affect Care: None marital status: Current Living Situation: Family Current Living Situation Comment: [facility] current occupational status: retired How many Children do You have: 2 Other Information That Helps Us Care for You: Yes (pureed/thickened food diet if/when possible) Feels Safe at Home: Yes Safety Concerns: Feels Safe At This Time Childhood Exposure to Second-Hand Smoke: No caffeine: Yes (coffee and sometimes tea ) Dental Care, Regularly: Yes Physical Activity Frequency: Daily Physical Activity Frequency Comment: walks 40 mins a day Seatbelt Use: always Sunscreen Use: Yes Assistive Devices: Mechanical Lift and Wheelchair Physical Exam Constitutional: + thin and + frail appearing; no acute d istress elderly male , no acute distress, sleeping Respiratory: normal respiratory effort, lungs clear to auscultation Cardiovascular: RRR, no murmur, no edema Gastrointestinal (Abdomen): Inspection/Auscultation: abdomen normal to inspection; abdomen not distended Percussion/Palpation: abdomen soft; abdomen nontender, no guarding, abdomen not rigid and abdomen not firm Skin: no rashes, warm and dry + jaundice Psychiatric: A+Ox3, euthymic affect Results & Data Vital Signs (Past 12 Hours) Vital Signs Temp Pulse Resp BP Pulse Ox O2 Del Method O2 Flow Rate 10/31/24 07:35 36.6 C 61 20 124/71 99 Nasal Cannula 3 10/30/24 22:07 36.4 C L Laboratory Results 10/31/24 10/30/24 10/30/24 Range/Units 07:44 22:45 17:56 WBC 6.77 (4.8-10.8) K/ul RBC 3.50 L (4.70-6.10) M/uL Hgb 9.6 L (14.0-18.0) g/dl Hct 32.1 L (42.0-52.0) % MCV 91.7 (80.0-100.0) fL MCH 27.4 (25.0-34.0) pg MCHC 29.9 L (32.0-36.0) g/dL RDW Std Deviation 64.2 H (36.4-46.3) fL RDW Coeff of Layo 20.4 H (11.5-14.5) % Plt Count 59 L (130-400) K/uL MPV 11.3 (9.4-12.4) fL Absolute Nucleated RBC 0.17 H (0.00-0.12) K/uL Nucleated RBC % (auto) 2.5 % Sodium 154 H 154 H 154 H (136-145) mmol/L Potassium 3.4 L (3.5-5.1) mmol/L Chloride 123 H (98-107) mmol/L Carbon Dioxide 25 (21-32) mmol/L Anion Gap 6 (3-11) BUN 43 H (6-23) mg/dl Creatinine 0.84 (0.6-1.4) mg/dl Est Cr Clr Drug Dosing 47.8 ml/min eGFR 83.36 BUN/Creatinine Ratio 51.2 H (10-20) Glucose 101 H (70-99(Fasting)) mg/dl Calcium 8.4 L (8.6-10.3) mg/dl Total Bilirubin 3.3 H (0.2-1.0) mg/dl Direct Bilirubin (0-0.2) mg/dl AST 57 H (13-39) U/L ALT 58 H (7-52) U/L Alkaline Phosphatase 95 (34-104) U/L Troponin I High Sens (0-20) pg/ml C-Reactive Protein 11.19 H (0-0.5) mg/dl Total Protein 5.4 L (6.0-8.3) gm/dl Albumin 2.3 L (3.4-5.0) gm/dl Globulin 3.1 (2.5-4.0) gm/dl Albumin/Globulin Ratio 0.7 L (0.9-2) Urine Color Urine Appearance (Clear) Urine pH (4.5-7.5) Ur Specific [place] (1.000-1.030) Urine Protein (Negative) Urine Glucose (UA) (Negative) Urine Ketones (Negative) Urine Blood (Negative) Urine Nitrite (Negative) Urine Bilirubin (Negative) Urine Urobilinogen (Negative) Ur Leukocyte Esterase (Negative) Urine WBC (Auto) (0-5) /hpf Urine RBC (Auto) (0-2) /hpf U Hyaline Cast (Auto) (0-2) /lpf U Epithel Cells (Auto) (0-2) /hpf Urine Bacteria (Auto) (None Seen) Urine Yeast (None Prsent) Urine Comment 10/30/24 10/30/24 Range/Units 17:17 14:36 WBC (4.8-10.8) K/ul RBC (4.70-6.10) M/uL Hgb (14.0-18.0) g/dl Hct (42.0-52.0) % MCV (80.0-100.0) fL MCH (25.0-34.0) pg MCHC (32.0-36.0) g/dL RDW Std Deviation (36.4-46.3) fL RDW Coeff of Layo (11.5-14.5) % Plt Count (130-400) K/uL MPV (9.4-12.4) fL Absolute Nucleated RBC (0.00-0.12) K/uL Nucleated RBC % (auto) % Sodium 154 H (136-145) mmol/L Potassium (3.5-5.1) mmol/L Chloride (98-107) mmol/L Carbon Dioxide (21-32) mmol/L Anion Gap (3-11) BUN (6-23) mg/dl Creatinine (0.6-1.4) mg/dl Est Cr Clr Drug Dosing ml/min eGFR BUN/Creatinine Ratio (10-20) Glucose (70-99(Fasting)) mg/dl Calcium (8.6-10.3) mg/dl Total Bilirubin (0.2-1.0) mg/dl Direct Bilirubin 2.0 H (0-0.2) mg/dl AST (13-39) U/L ALT (7-52) U/L Alkaline Phosphatase (34-104) U/L Troponin I High Sens 33.2 H (0-20) pg/ml C-Reactive Protein (0-0.5) mg/dl Total Protein (6.0-8.3) gm/dl Albumin (3.4-5.0) gm/dl Globulin (2.5-4.0) gm/dl Albumin/Globulin Ratio (0.9-2) Urine Color Dark Yellow Urine Appearance Cloudy A (Clear) Urine pH 5.5 (4.5-7.5) Ur Specific [place] 1.022 (1.000-1.030) Urine Protein 1+ H (Negative) Urine Glucose (UA) Negative (Negative) Urine Ketones Trace H (Negative) Urine Blood 3+ H (Negative) Urine Nitrite Negative (Negative) Urine Bilirubin 1+ H (Negative) Urine Urobilinogen Positive H (Negative) Ur Leukocyte Esterase 3+ H (Negative) Urine WBC (Auto) >50 H (0-5) /hpf Urine RBC (Auto) 11-20 H (0-2) /hpf U Hyaline Cast (Auto) 0-2 (0-2) /lpf U Epithel Cells (Auto) 0-2 (0-2) /hpf Urine Bacteria (Auto) 1+ H (None Seen) Urine Yeast Present A (None Prsent) Urine Comment
--- NOTE | 2024-10-31 09:50 | Pharmacy Report ---
Pharmacy PK ABX Note - Date of Service October 31, 2024 - Assessment and Plan Assessment 89 year old M receiving vancomycin/Zosyn for treatment of suspected gallbladder infection. Pertinent microbiologic data includes: blood and urine cultures growing pending. Plan Vancomycin * Loading dose: 1250 mg IV x 1 * Maintenance dose: 1000 mg IV every 18 hours * Regimen is predicted to achieve target AUC/SUNSHINE of 400-600 mg/L.hr * Random level ordered for: 11/02/24 with AM labs Pharmacy will continue to follow and will adjust dose/frequency as necessary. Thank you. Pharmacy has transitioned to AUC monitoring for vancomycin. AUC/SUNSHINE is the preferred PK/PD target and is associated with decreased risk of nephrotoxicity compared to traditional trough targets.
--- NOTE | 2024-10-31 10:54 | Gastrointestinal Consultation ---
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 Elevated LFTs - DDX discussed - Transaminases downtrending - WBC not elevated - CT/ABD US reviewed - Stones/sludge - No biliary dilation - Follow blood cultures - Trend LFTs - Follow serology - Recommend MRCP to evaluate biliary tree 2. Stones/sludge - Appreciate general surgery consultation I spent a total of 60 minutes on the date of service in review of patient's record, and previously obtained information in person and appropriate medical visit, discussion and education of plan, with patient and/or caregiver, placing orders for tests/referral/procedures as medically necessary and documentation of pertinent clinical information in patient's medical records for their visit today. Supervising Physician Co-Signing Physician Notes I saw and examined this patient with our nurse practitioner and agree with her assessment and plan. Patient presents with lethargy abnormal liver enzymes altered mental status with underlying dementia. Workup in progress to find precipitating factors. Abnormal LFTs are nonspecific they could be related to an extrahepatic infectious process, congestion due to cardiac dysfunction as well as biliary pathology. However both an ultrasound and a CT scan failed to reveal any dilated extrahepatic biliary ducts or evidence of choledocholithiasis. To hospital policy he may not be able to undergo an MRCP because of his altered mental status and failure to communicate. He would be high risk for any endoscopic procedure. For now recommend continuing infectious workup as well as monitoring his LFTs. Will reassess patient on a day-to-day basis. 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 GI was asked to evaluate for elevated LFTs. Family at bedside who aids in history. Suggests report of lethargy and vomiting over the last week or so. There was some report of grimacing from staff at [facility] w/ position changes and question if he was having discomfort in his abdomen. WBC 6 Blood cultures pending Tb 3.6 --> 3.3 AST 100 --> 57 ALT 80 --> 58 ALKP 107 --> 95 ABD US 2024: The liver is normal in size and echotexture. There is no intrahepatic biliary ductal dilatation. The main portal vein is patent. A subcentimeter hepatic cyst is incidentally noted. Dilatation of the IVC and hepatic veins suggests cardiac dysfunction. The gallbladder is distended and contains layering gallstones as well as biliary sludge. There is no gallbladder wall thickening or pericholecystic fluid. A sonographic Valenzuela's sign is reportedly absent. The common bile duct measures up to 0.5 cm in diameter. CTAP 2024: Cystic lesions within the pancreatic head and uncinate process measure up to 1.7 cm. 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 No peripancreatic inflammation is present. There is no biliary or pancreatic ductal dilatation. The gallbladder is mildly distended. There is no evidence for a bowel obstruction. Allergies Allergy/AdvReac Type Severity Reaction Status Date / Time No Known Allergies Allergy Verified 08/14/24 11:28 Home Medications Medication Instructions Recorded Confirmed Type acetaminophen 325 mg tablet 650 mg PO Q4 PRN Fever Or Pain 02/09/23 10/30/24 History (Tylenol) aspirin 81 mg chewable tablet 81 mg PO QAM 02/09/23 10/30/24 History docusate sodium 100 mg tablet 100 mg PO Q24H PRN Constipation 02/09/23 10/30/24 History doxazosin 1 mg tablet 1 mg PO HS 02/09/23 10/30/24 History levothyroxine 50 mcg tablet 50 mcg PO QAM 02/09/23 10/30/24 History nitroglycerin 0.4 mg sublingual 0.4 mg sublingual Q24H PRN Chest 02/09/23 10/30/24 History tablet Pain sodium chloride 0.65 % nasal spray 2 spray NA Q2H PRN DRY 09/11/23 10/30/24 History aerosol (Saline Mist) NOSE/EPISTAXIS acetaminophen 160 mg/5 mL oral 640 mg PO Q6H PRN pain or fever 02/14/24 10/30/24 History elixir acetaminophen 650 mg rectal 650 mg WV Q8H PRN Discomfort ##0 02/14/24 10/30/24 History suppository bisacodyl 10 mg rectal suppository 10 mg WV DAILY PRN Constipation 02/14/24 10/30/24 History (Dulcolax (bisacodyl)) polyethylene glycol 3350 17 gram 17 g PO DAILY PRN Constipation 02/14/24 10/30/24 History oral powder packet (Miralax) metoprolol tartrate 25 mg tablet 12.5 mg (1/2 x 25 mg) PO DAILY #90 06/15/24 10/30/24 Rx tabs acetaminophen 650 mg rectal 650 mg WV Q4H PRN Temp/Pain 07/06/24 10/30/24 History suppository escitalopram oxalate 20 mg tablet 20 mg PO DAILY 07/06/24 10/30/24 History mineral oil-isopropyl myristat 1 applic topical BID Dry Skin on 07/06/24 10/30/24 History lotion hands zinc oxide-cod liver oil 40 % 1 applic topical DAILY Skin Care 07/06/24 10/30/24 History topical paste (Desitin) on BL Buttocks/Scrotum amoxicillin 400 mg-potassium 10 ml PO BID 10/30/24 10/30/24 History clavulanate 57 mg/5 mL oral suspension Patient History Medical History Pneumonia Adrenal insufficiency Sepsis Elevated troponin I level Pacemaker 10/2018 -- [employer] follows dr simpson last check - 02/2019 CAD (coronary artery disease) Acute hypotension Short-term memory loss 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 Sinus bradycardia Encounter for pre-operative examination Raynauds syndrome MILD (EFFECTING FINGERS) Hypertension Hyperlipidemia Cellulitis of left hand Surgical History History of tonsillectomy History of inguinal hernia repair Hx of hernia repair repair of inguinal hernia History of cataract surgery RT/ LT History of colonoscopy Blocked tear duct repair of of tear duct History of cardiac cath 02/2002 and then needed cabg x 4 Family History Sister Family history of diabetes mellitus Hypertension Family/Other Family history of diabetes mellitus Father Acute myocardial infarction Denies family history of Ovarian cancer Prostate cancer Myocardial infarction Breast cancer Colorectal cancer Social History Smoking Status: Smoker, status unknown Second Hand Exposure: No; Do You Dip or Chew Tobacco: No (pt intubated); Hx Alcohol Use: No Hx Substance Use: No Preferred Language: Sudanese Communication Ability: Unable Communication Ability Comment: pt intubated Visual Impairment: Limited Hearing Ability: Normal Embroidery Operator Required: No Beliefs That Will Affect Care: None marital status: Current Living Situation: Family Current Living Situation Comment: Tamika Koehler current occupational status: retired How many Children do You have: 2 Other Information That Helps Us Care for You: Yes (pureed/thickened food diet if/when possible) Feels Safe at Home: Yes Safety Concerns: Feels Safe At This Time Childhood Exposure to Second-Hand Smoke: No caffeine: Yes (coffee and sometimes tea ) Dental Care, Regularly: Yes Physical Activity Frequency: Daily Physical Activity Frequency Comment: walks 40 mins a day Seatbelt Use: always Sunscreen Use: Yes Assistive Devices: Mechanical Lift and Wheelchair Review of Systems Review of Systems: Unobtainable due to cognitive status Physical Exam Gastrointestinal (Abdomen): normal bowel sounds, soft, nontender, no hepatosplenomegaly Results & Data Vital Signs (Past 12 Hours) Vital Signs Temp Pulse Resp BP Pulse Ox O2 Del Method O2 Flow Rate 10/31/24 09:00 Room Air 10/31/24 07:35 97.9 F 61 20 124/71 99 Nasal Cannula 3 Laboratory Results 10/31/24 10/30/24 10/30/24 Range/Units 07:44 22:45 17:56 WBC 6.77 (4.8-10.8) K/ul RBC 3.50 L (4.70-6.10) M/uL Hgb 9.6 L (14.0-18.0) g/dl Hct 32.1 L (42.0-52.0) % MCV 91.7 (80.0-100.0) fL MCH 27.4 (25.0-34.0) pg MCHC 29.9 L (32.0-36.0) g/dL RDW Std Deviation 64.2 H (36.4-46.3) fL RDW Coeff of Layo 20.4 H (11.5-14.5) % Plt Count 59 L (130-400) K/uL MPV 11.3 (9.4-12.4) fL Immature Gran % (Auto) % Neut % (Auto) % Lymph % (Auto) % [place] % (Auto) % Eos % (Auto) % Baso % (Auto) % Neut # (Auto) (1.40-6.50) K/uL Lymph # (Auto) (1.20-3.40) K/uL [place] # (Auto) (0.11-0.59) K/uL Eos # (Auto) (0.00-0.50) K/uL Baso # (Auto) (0.00-0.20) K/uL Immature Gran # (Auto) (0.01-0.20) K/uL Absolute Nucleated RBC 0.17 H (0.00-0.12) K/uL Nucleated RBC % (auto) 2.5 % Polychromasia Anisocytosis Tear Drop Cells Ovalocytes Sodium 154 H 154 H 154 H (136-145) mmol/L Potassium 3.4 L (3.5-5.1) mmol/L Chloride 123 H (98-107) mmol/L Carbon Dioxide 25 (21-32) mmol/L Anion Gap 6 (3-11) BUN 43 H (6-23) mg/dl Creatinine 0.84 (0.6-1.4) mg/dl Est Cr Clr Drug Dosing 47.8 ml/min eGFR 83.36 BUN/Creatinine Ratio 51.2 H (10-20) Glucose 101 H (70-99(Fasting)) mg/dl Lactate (0.4-2.0) mmol/L Calcium 8.4 L (8.6-10.3) mg/dl Magnesium (1.7-2.4) mg/dl Total Bilirubin 3.3 H (0.2-1.0) mg/dl Direct Bilirubin (0-0.2) mg/dl AST 57 H (13-39) U/L ALT 58 H (7-52) U/L Alkaline Phosphatase 95 (34-104) U/L Troponin I High Sens (0-20) pg/ml C-Reactive Protein 11.19 H (0-0.5) mg/dl B-Natriuretic Peptide (0-100) pg/ml Total Protein 5.4 L (6.0-8.3) gm/dl Albumin 2.3 L (3.4-5.0) gm/dl Globulin 3.1 (2.5-4.0) gm/dl Albumin/Globulin Ratio 0.7 L (0.9-2) Urine Color Urine Appearance (Clear) Urine pH (4.5-7.5) Ur Specific [place] (1.000-1.030) Urine Protein (Negative) Urine Glucose (UA) (Negative) Urine Ketones (Negative) Urine Blood (Negative) Urine Nitrite (Negative) Urine Bilirubin (Negative) Urine Urobilinogen (Negative) Ur Leukocyte Esterase (Negative) Urine WBC (Auto) (0-5) /hpf Urine RBC (Auto) (0-2) /hpf U Hyaline Cast (Auto) (0-2) /lpf U Epithel Cells (Auto) (0-2) /hpf Urine Bacteria (Auto) (None Seen) Urine Yeast (None Prsent) Urine Comment Adenovirus (PCR) (NotDetected) B. pertussis DNA (PCR) (NotDetected) B.parapertussis DNA PCR (NotDetected) C. pneumoniae DNA (PCR) (NotDetected) Coronavirus OC43 (PCR) (NotDetected) Coronavirus HKU1 (PCR) (NotDetected) Coronavirus 229E (PCR) (NotDetected) SARS-CoV-2 (PCR) (NotDetected) Coronavirus NL63 (PCR) (NotDetected) Human Metapneumovir PCR (NotDetected) Influenza Type A (PCR) (NotDetected) Influenza Type B (PCR) (NotDetected) M. pneumoniae (PCR) (NotDetected) Parainfluenza 1 (PCR) (NotDetected) Parainfluenza 2 (PCR) (NotDetected) Parainfluenza 3 (PCR) (NotDetected) Parainfluenza 4 (PCR) (NotDetected) RSV (PCR) (NotDetected) Entero/Rhino (PCR) (NotDetected) 10/30/24 10/30/24 10/30/24 Range/Units 17:17 14:36 11:30 WBC (4.8-10.8) K/ul RBC (4.70-6.10) M/uL Hgb (14.0-18.0) g/dl Hct (42.0-52.0) % MCV (80.0-100.0) fL MCH (25.0-34.0) pg MCHC (32.0-36.0) g/dL RDW Std Deviation (36.4-46.3) fL RDW Coeff of Layo (11.5-14.5) % Plt Count (130-400) K/uL MPV (9.4-12.4) fL Immature Gran % (Auto) % Neut % (Auto) % Lymph % (Auto) % [place] % (Auto) % Eos % (Auto) % Baso % (Auto) % Neut # (Auto) (1.40-6.50) K/uL Lymph # (Auto) (1.20-3.40) K/uL [place] # (Auto) (0.11-0.59) K/uL Eos # (Auto) (0.00-0.50) K/uL Baso # (Auto) (0.00-0.20) K/uL Immature Gran # (Auto) (0.01-0.20) K/uL Absolute Nucleated RBC (0.00-0.12) K/uL Nucleated RBC % (auto) % Polychromasia Anisocytosis Tear Drop Cells Ovalocytes Sodium 154 H (136-145) mmol/L Potassium (3.5-5.1) mmol/L Chloride (98-107) mmol/L Carbon Dioxide (21-32) mmol/L Anion Gap (3-11) BUN (6-23) mg/dl Creatinine (0.6-1.4) mg/dl Est Cr Clr Drug Dosing ml/min eGFR BUN/Creatinine Ratio (10-20) Glucose (70-99(Fasting)) mg/dl Lactate (0.4-2.0) mmol/L Calcium (8.6-10.3) mg/dl Magnesium (1.7-2.4) mg/dl Total Bilirubin (0.2-1.0) mg/dl Direct Bilirubin 2.0 H (0-0.2) mg/dl AST (13-39) U/L ALT (7-52) U/L Alkaline Phosphatase (34-104) U/L Troponin I High Sens 33.2 H (0-20) pg/ml C-Reactive Protein (0-0.5) mg/dl B-Natriuretic Peptide (0-100) pg/ml Total Protein (6.0-8.3) gm/dl Albumin (3.4-5.0) gm/dl Globulin (2.5-4.0) gm/dl Albumin/Globulin Ratio (0.9-2) Urine Color Dark Yellow Urine Appearance Cloudy A (Clear) Urine pH 5.5 (4.5-7.5) Ur Specific [place] 1.022 (1.000-1.030) Urine Protein 1+ H (Negative) Urine Glucose (UA) Negative (Negative) Urine Ketones Trace H (Negative) Urine Blood 3+ H (Negative) Urine Nitrite Negative (Negative) Urine Bilirubin 1+ H (Negative) Urine Urobilinogen Positive H (Negative) Ur Leukocyte Esterase 3+ H (Negative) Urine WBC (Auto) >50 H (0-5) /hpf Urine RBC (Auto) 11-20 H (0-2) /hpf U Hyaline Cast (Auto) 0-2 (0-2) /lpf U Epithel Cells (Auto) 0-2 (0-2) /hpf Urine Bacteria (Auto) 1+ H (None Seen) Urine Yeast Present A (None Prsent) Urine Comment Adenovirus (PCR) Not Detected (NotDetected) B. pertussis DNA (PCR) Not Detected (NotDetected) B.parapertussis DNA PCR Not Detected (NotDetected) C. pneumoniae DNA (PCR) Not Detected (NotDetected) Coronavirus OC43 (PCR) Not Detected (NotDetected) Coronavirus HKU1 (PCR) Not Detected (NotDetected) Coronavirus 229E (PCR) Not Detected (NotDetected) SARS-CoV-2 (PCR) Not Detected (NotDetected) Coronavirus NL63 (PCR) Not Detected (NotDetected) Human Metapneumovir PCR Not Detected (NotDetected) Influenza Type A (PCR) Not Detected (NotDetected) Influenza Type B (PCR) Not Detected (NotDetected) M. pneumoniae (PCR) Not Detected (NotDetected) Parainfluenza 1 (PCR) Not Detected (NotDetected) Parainfluenza 2 (PCR) Not Detected (NotDetected) Parainfluenza 3 (PCR) Not Detected (NotDetected) Parainfluenza 4 (PCR) Not Detected (NotDetected) RSV (PCR) Not Detected (NotDetected) Entero/Rhino (PCR) Not Detected (NotDetected) 10/30/24 Range/Units 11:20 WBC 5.95 (4.8-10.8) K/ul RBC 3.21 L (4.70-6.10) M/uL Hgb 8.8 L (14.0-18.0) g/dl Hct 29.7 L (42.0-52.0) % MCV 92.5 (80.0-100.0) fL MCH 27.4 (25.0-34.0) pg MCHC 29.6 L (32.0-36.0) g/dL RDW Std Deviation 62.0 H (36.4-46.3) fL RDW Coeff of Layo 19.9 H (11.5-14.5) % Plt Count 74 L (130-400) K/uL MPV 12.0 (9.4-12.4) fL Immature Gran % (Auto) 2.0 % Neut % (Auto) 77.6 % Lymph % (Auto) 13.4 % [place] % (Auto) 5.7 % Eos % (Auto) 0.8 % Baso % (Auto) 0.5 % Neut # (Auto) 4.61 (1.40-6.50) K/uL Lymph # (Auto) 0.80 L (1.20-3.40) K/uL [place] # (Auto) 0.34 (0.11-0.59) K/uL Eos # (Auto) 0.05 (0.00-0.50) K/uL Baso # (Auto) 0.03 (0.00-0.20) K/uL Immature Gran # (Auto) 0.12 (0.01-0.20) K/uL Absolute Nucleated RBC 0.23 H (0.00-0.12) K/uL Nucleated RBC % (auto) 3.9 % Polychromasia 2+ Anisocytosis Present Tear Drop Cells 1+ Ovalocytes 1+ Sodium 153 H (136-145) mmol/L Potassium 3.6 (3.5-5.1) mmol/L Chloride 121 H (98-107) mmol/L Carbon Dioxide 23 (21-32) mmol/L Anion Gap 9 (3-11) BUN 53 H (6-23) mg/dl Creatinine 0.97 (0.6-1.4) mg/dl Est Cr Clr Drug Dosing 46.6 ml/min eGFR 74.62 BUN/Creatinine Ratio 54.6 H (10-20) Glucose 92 (70-99(Fasting)) mg/dl Lactate 2.0 (0.4-2.0) mmol/L Calcium 8.8 (8.6-10.3) mg/dl Magnesium 2.0 (1.7-2.4) mg/dl Total Bilirubin 3.6 H (0.2-1.0) mg/dl Direct Bilirubin (0-0.2) mg/dl AST 100 H (13-39) U/L ALT 80 H (7-52) U/L Alkaline Phosphatase 107 H (34-104) U/L Troponin I High Sens 33.8 H (0-20) pg/ml C-Reactive Protein (0-0.5) mg/dl B-Natriuretic Peptide 1660 H (0-100) pg/ml Total Protein 5.9 L (6.0-8.3) gm/dl Albumin 2.6 L (3.4-5.0) gm/dl Globulin 3.3 (2.5-4.0) gm/dl Albumin/Globulin Ratio 0.8 L (0.9-2) Urine Color Urine Appearance (Clear) Urine pH (4.5-7.5) Ur Specific [place] (1.000-1.030) Urine Protein (Negative) Urine Glucose (UA) (Negative) Urine Ketones (Negative) Urine Blood (Negative) Urine Nitrite (Negative) Urine Bilirubin (Negative) Urine Urobilinogen (Negative) Ur Leukocyte Esterase (Negative) Urine WBC (Auto) (0-5) /hpf Urine RBC (Auto) (0-2) /hpf U Hyaline Cast (Auto) (0-2) /lpf U Epithel Cells (Auto) (0-2) /hpf Urine Bacteria (Auto) (None Seen) Urine Yeast (None Prsent) Urine Comment Adenovirus (PCR) (NotDetected) B. pertussis DNA (PCR) (NotDetected) B.parapertussis DNA PCR (NotDetected) C. pneumoniae DNA (PCR) (NotDetected) Coronavirus OC43 (PCR) (NotDetected) Coronavirus HKU1 (PCR) (NotDetected) Coronavirus 229E (PCR) (NotDetected) SARS-CoV-2 (PCR) (NotDetected) Coronavirus NL63 (PCR) (NotDetected) Human Metapneumovir PCR (NotDetected) Influenza Type A (PCR) (NotDetected) Influenza Type B (PCR) (NotDetected) M. pneumoniae (PCR) (NotDetected) Parainfluenza 1 (PCR) (NotDetected) Parainfluenza 2 (PCR) (NotDetected) Parainfluenza 3 (PCR) (NotDetected) Parainfluenza 4 (PCR) (NotDetected) RSV (PCR) (NotDetected) Entero/Rhino (PCR) (NotDetected) PG Care Time/CCT Total # of Minutes Spent Total Time Spent with Patient: Total time spent is greater than 50% in coordination of care (as documented) at patient's floor/unit and/or counseling patient: Coding Level of Care Code 64716 INT INP/OBS CARE 3/75MIN Diagnoses Elevated LFTs R79.89
--- NOTE | 2024-10-31 11:08 | Hospitalist Progress Note ---
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 US shows evidence of distended gallbladder, although no evidence of acute cholecystitis, will continue zosyn for now may also benefit from ERCP vs perc margarette tube if not deemed a candidate for omer dinora. Family is unsure if they would proceed with surgery. Family does not want him to go to comfort measures as of yet. CAD Patient with history of CAD and quadruple bypass #severe dementia: will continue supportive care will hold escitalopram. #hypothyroidism: placed on iv levothyroxine #CKD stage IIIb stable will monitor #CAD holding metoprolol, may need IV dose to prevent rebound tachycardia if unable to talk oral intake Admission and Anticipated Discharge Date Admission Date: October 30, 2024 Subjective patient seen and examined, he is non verbal, but and daughter able to provide history Review of Systems Review of Systems: unable to obtain Physical Exam Physical Exam: The patient is awake, non verbal HEENT--PERRL, EOMI, mucous membranes and oropharynx mildly dry Neck--supple. No JVD. No bruits. Thyroid normal, trachea midline, no adenopathy. Heart--normal S1 and S2. No murmurs, rubs or gallops. Lungs--clear bilaterally, no respiratory distress, no accessory muscle use. Abdomen--normal bowel sounds and soft. Extremities--no edema Dermatologic--normal skin turgor, normal color, no abnormal lymph nodes, no rash. Neurologic--unable to fully assess Rheumatologic-contarcted Results & Data Results & Data Vital Signs (Past 12 Hours) Vital Signs Temp Pulse Resp BP Pulse Ox O2 Del Method O2 Flow Rate 10/31/24 09:00 Room Air 10/31/24 07:35 97.9 F 61 20 124/71 99 Nasal Cannula 3 PG Care Time/CCT Total # of Minutes Spent Total Time Spent with Patient: Total time spent is greater than 50% in coordination of care (as documented) at patient's floor/unit and/or counseling patient: Coding Level of Care Code 26745 SUB INP/OBS CARE 2/35MIN Diagnoses Sepsis A41.9 Dementia F03.90 History of coronary artery bypass graft Z95.1 CKD (chronic kidney disease), stage III N18.30 Hypothyroidism E03.9 Dyslipidemia E78.5 Time Spent (min) 35
[2024-10-31] MEDS: DEXTROSE 5% 1,000 ML IV SCH (11:38)
[2024-11-01] MEDS: VANCOMYCIN HCL 1,000 MG/270 ML BAG IV SCH (02:35)
[2024-11-01] MEDS: ACETYLCYSTEINE 20% INHAL SOLN 4ML ***DISPENSED BY RESP. INH SCH (08:10)
[2024-11-01] MEDS: ALBUT/IPRATROP 3MG/0.5MG NEB 3 ML VIAL NEB SCH (08:10)
--- NOTE | 2024-11-01 08:16 | XRay Report ---
XR chest 1V portable CLINICAL HISTORY: r/o PNA, volume overload COMPARISON STUDY: 10/30/2024 FINDINGS: Stable CABG. Stable cardiomegaly with mild pulmonary vascular congestion. There is interval stranding and faint patchy opacity at the right mid lung and at the right lung base. There is increa sed opacity at the left base with partial obscuration of the left hemidiaphragm. No pneumothorax. IMPRESSION: Increased pulmonary opacities suggestive of pneumonia. ACT 112: Negative or not required by law. Electronically signed by: Johnny Jordan M.D. 11/01/2024 8:14 AM
[2024-11-01] MEDS: guaiFENesin 600 MG TABCR PO SCH (08:31)
[2024-11-01 09:28] LABS: A calco-baum cmplx NotReported Not Detected (NotDetected); Bact fragilis Not Reported Not Detected (NotDetected); Blood Culture Id Panel See PCR Comment (NotDetected); C auris Not Reported Not Detected (NotDetected); Calbicans Not Reported Not Detected (NotDetected); Candida glabrata Not Reported DETECTED (NotDetected); Candida krusei Not Reported Not Detected (NotDetected); Cneoformans/gatti Not Reported Not Detected (NotDetected); Cparapsilosis Not Reported Not Detected (NotDetected); Ctropicalis Not Reported Not Detected (NotDetected); E cloacae compx Not Reported Not Detected (NotDetected); Efaecalis Not Reported Not Detected (NotDetected); Efaecium Not Reported Not Detected (NotDetected); Enterobacterales Not Reported Not Detected (NotDetected); Escherichia coli Not Reported Not Detected (NotDetected); H influenzae Not Reported Not Detected (NotDetected); K aerogenes Not Reported Not Detected (NotDetected); Koxytoca Not Reported Not Detected (NotDetected); Kpneumoniae grp Not Reported Not Detected (NotDetected); Lmonocyt Not Reported Not Detected (NotDetected); N meningitidis Not Reported Not Detected (NotDetected); P aeruginosa Not Reported Not Detected (NotDetected); Proteus spp Not Reported Not Detected (NotDetected); Salmonella spp Not Reported Not Detected (NotDetected); Staph lugdunensis Not Reported Not Detected (NotDetected); Staph spp. Not Reported Not Detected (NotDetected); Staphaureus Not Reported Not Detected (NotDetected); Staphepi Not Reported Not Detected (NotDetected); Stenmaltophilia Not Reported Not Detected (NotDetected); Strep agal(GrpB) Not Reported Not Detected (NotDetected); Strep pneum Not Reported Not Detected (NotDetected); Strep pyog (GrpA) Not Reported Not Detected (NotDetected); Strep spp Not Reported Not Detected (NotDetected)
[2024-11-01 09:50] LABS: Candida glabrata DETECTED (NotDetected)
--- NOTE | 2024-11-01 10:03 | Gastroenterology Progress Note ---
Date of Service November 01, 2024 Assessment & Plan (1) Elevated LFTs: Plan: Case discussed with Dr. Hardwick. Since unable to get MRCP to further evaluate, will plan to follow LFTs. Orders placed for CMP since none in EMR. will await results to trend. Admission and Anticipated Discharge Date Admission Date: October 30, 2024 Supervising Physician Co-Signing Physician Notes I saw and examined this patient with our nurse practitioner and agree with her assessment and plan. Major clinical issue now is his pulmonary status. Apparently pneumonia has been worsening. This may also be reason for his LFTs to be elevated. They are presently stable if not normalizing. The possibilities include congestion from right-sided heart failure or from increased pulmonary pressures. Continue to monitor LFTs periodically while he is in the hospital. Call us if any further issues. 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 he had elevated LFTs. MRCP was recommended but could not be done as patient was unable to communicate. patient offers no complaints. appears to be resting comfortably. Review of Systems Review of Systems: unobtainable. Physical Exam Gastrointestinal (Abdomen): soft, normal bowel sounds. Psychiatric: resting comfortably Results & Data Results & Data Vital Signs (Past 12 Hours) Vital Signs Temp Pulse Resp BP Pulse Ox O2 Del Method O2 Flow Rate 11/01/24 08:15 58 L 22 94 Nasal Cannula 5 11/01/24 07:43 98.6 F 62 24 125/53 L 96 Nasal Cannula 5 Laboratory Results Laboratory Results - last 48 hr 10/30/24 10/30/24 10/30/24 11:20 17:17 17:56 WBC RBC Hgb Hct MCV MCH MCHC RDW Std Deviation RDW Coeff of Layo Plt Count MPV Absolute Nucleated RBC Nucleated RBC % (auto) Sodium 154 H Potassium Chloride Carbon Dioxide Anion Gap BUN Creatinine Est Cr Clr Drug Dosing eGFR BUN/Creatinine Ratio Glucose Calcium Total Bilirubin AST ALT Alkaline Phosphatase C-Reactive Protein Total Protein Albumin Globulin Albumin/Globulin Ratio Urine Color Dark Yellow Urine Appearance Cloudy A Urine pH 5.5 Ur Specific Effie 1.022 Urine Protein 1+ H Urine Glucose (UA) Negative Urine Ketones Trace H Urine Blood 3+ H Urine Nitrite Negative Urine Bilirubin 1+ H Urine Urobilinogen Positive H Ur Leukocyte Esterase 3+ H Urine WBC (Auto) >50 H Urine RBC (Auto) 11-20 H U Hyaline Cast (Auto) 0-2 U Epithel Cells (Auto) 0-2 Urine Bacteria (Auto) 1+ H Urine Yeast Present A Urine Comment C. glabrata (PCR) DETECTED A Bld Cult ID Panel PCR See PCR Comment 10/30/24 10/31/24 11/01/24 22:45 07:44 09:27 WBC 6.77 RBC 3.50 L Hgb 9.6 L Hct 32.1 L MCV 91.7 MCH 27.4 MCHC 29.9 L RDW Std Deviation 64.2 H RDW Coeff of Layo 20.4 H Plt Count 59 L MPV 11.3 Absolute Nucleated RBC 0.17 H Nucleated RBC % (auto) 2.5 Sodium 154 H 154 H 151 H Potassium 3.4 L 3.5 Chloride 123 H 120 H Carbon Dioxide 25 20 L Anion Gap 6 11 BUN 43 H 37 H Creatinine 0.84 0.94 Est Cr Clr Drug Dosing 47.8 42.7 eGFR 83.36 77.49 BUN/Creatinine Ratio 51.2 H 39.4 H Glucose 101 H 115 H Calcium 8.4 L 8.5 L Total Bilirubin 3.3 H 3.2 H AST 57 H 43 H ALT 58 H 47 Alkaline Phosphatase 95 95 C-Reactive Protein 11.19 H Total Protein 5.4 L 5.9 L Albumin 2.3 L 2.3 L Globulin 3.1 3.6 Albumin/Globulin Ratio 0.7 L 0.6 L Urine Color Urine Appearance Urine pH Ur Specific Effie Urine Protein Urine Glucose (UA) Urine Ketones Urine Blood Urine Nitrite Urine Bilirubin Urine Urobilinogen Ur Leukocyte Esterase Urine WBC (Auto) Urine RBC (Auto) U Hyaline Cast (Auto) U Epithel Cells (Auto) Urine Bacteria (Auto) Urine Yeast Urine Comment C. glabrata (PCR) Bld Cult ID Panel PCR 11/01/24 14:39 WBC RBC Hgb Hct MCV MCH MCHC RDW Std Deviation RDW Coeff of Layo Plt Count MPV Absolute Nucleated RBC Nucleated RBC % (auto) Sodium 152 H Potassium 3.3 L Chloride 118 H Carbon Dioxide 24 Anion Gap 10 BUN 35 H Creatinine 0.93 Est Cr Clr Drug Dosing 43.2 eGFR 78.49 BUN/Creatinine Ratio 37.6 H Glucose 134 H Calcium 8.5 L Total Bilirubin AST ALT Alkaline Phosphatase C-Reactive Protein Total Protein Albumin Globulin Albumin/Globulin Ratio Urine Color Urine Appearance Urine pH Ur Specific Effie Urine Protein Urine Glucose (UA) Urine Ketones Urine Blood Urine Nitrite Urine Bilirubin Urine Urobilinogen Ur Leukocyte Esterase Urine WBC (Auto) Urine RBC (Auto) U Hyaline Cast (Auto) U Epithel Cells (Auto) Urine Bacteria (Auto) Urine Yeast Urine Comment C. glabrata (PCR) Bld Cult ID Panel PCR Coding Level of Care Code 55737 SUB INP/OBS CARE 2/35MIN Diagnoses Elevated LFTs R79.89
[2024-11-01 10:31] LABS: Anion Gap 11.0 (3-11); Bilirubin,Total 3.2 mg/dl (0.2-1.0); Calcium 8.5 mg/dl (8.6-10.3); Carbon Dioxide 20.0 mmol/L (21-32); Chloride 120.0 mmol/L (98-107); Potassium 3.5 mmol/L (3.5-5.1); Sodium 151.0 mmol/L (136-145)
[2024-11-01 10:37] LABS: Alanine Aminotransferase 47.0 U/L (7-52); Albumin Globulin Ratio 0.6 (0.9-2); Alkaline Phosphatase 95.0 U/L (34-104); Blood Urea Nitrogen 37.0 mg/dl (6-23); Creatinine Clr Calc Pharmacy 42.7 ml/min; Globulin 3.6 gm/dl (2.5-4.0); Glucose 115.0 mg/dl (70-99(Fasting)); Total Protein 5.9 gm/dl (6.0-8.3)
[2024-11-01] MEDS: THIAMINE HCL 200 MG in SODIUM CHLORIDE 0.9% 50 ML IV STA (10:50)
--- NOTE | 2024-11-01 14:47 | Hospitalist Progress Note ---
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 he's on 5 liter oxygen (baseline of 2 liter) acute on chronic respiratory failure on 5 liter, basline of 2 liter code status; DNR, DNI #Sepsis in an 89 yo male with elevated bilirrubin pointing towards a gallbladder problem. US shows evidence of distended gallbladder, although no evidence of acute cholecystitis, will continue zosyn for now may also benefit from ERCP vs perc margarette tube if not deemed a candidate for surgery. Family is unsure if they would proceed with surgery. Family does not want him to go to comfort measures as of yet. CAD Patient with history of CAD and quadruple bypass #severe dementia: non-verbal at baseline. dependently on ADL will continue supportive care will hold escitalopram. #hypothyroidism: placed on iv levothyroxine #CKD stage IIIb stable will monitor #CAD holding metoprolol, may need IV dose to prevent rebound tachycardia if unable to talk oral intake famil update updated for 25 minutes in the morning and then another 20 minutes in the afternoon Admission and Anticipated Discharge Date Admission Date: October 30, 2024 Subjective he being treated for AMS, hypernatremia and PNA he's on fluid and hypernatremia improving from 155--> 151 however, still too confused to has oral intake updated, discussed that he was a DNR, DNI discussed that trial of fluid for hypernatremia and antibiotics for PNA understand that patient can choke on food and agreeable to hold diet today unless his AMS improved. end stage dementia, non-verbal suspect life expectancy of 6 months. Physical Exam Physical Exam: VITALS: Reviewed. WEIGHT/BMI reviewed. GEN: chronically ill appearing -Head: NC/AT; -Eyes: PERRL, EOMI. No discharge or redn ess; -Mouth and throat: MMM. Normal gums, muc marcel, palate,. Good dentition. CV: RRR, no m/r/g. LUNGS: CTAB, no w/r/c. ABD: Soft, NT/ND, NBS, no masses or organomegaly. MSK: No deformities, Normal gait. EXT: No clubbing, cyanosis, or edema. NEURO: non-verbal Results & Data Results & Data Vital Signs (Past 12 Hours) Vital Signs Temp Pulse Resp BP Pulse Ox O2 Del Method O2 Flow Rate 11/01/24 08:15 58 L 22 94 Nasal Cannula 5 11/01/24 07:43 37.0 C 62 24 125/53 L 96 Nasal Cannula 5 11/01/24 07:30 Nasal Cannula 5 Laboratory Results Laboratory Results - last 72 hr 10/30/24 10/30/24 10/30/24 11:20 11:30 14:36 WBC 5.95 RBC 3.21 L Hgb 8.8 L Hct 29.7 L MCV 92.5 MCH 27.4 MCHC 29.6 L RDW Std Deviation 62.0 H RDW Coeff of Layo 19.9 H Plt Count 74 L MPV 12.0 Immature Gran % (Auto) 2.0 Neut % (Auto) 77.6 Lymph % (Auto) 13.4 Anderson % (Auto) 5.7 Eos % (Auto) 0.8 Baso % (Auto) 0.5 Neut # (Auto) 4.61 Lymph # (Auto) 0.80 L Anderson # (Auto) 0.34 Eos # (Auto) 0.05 Baso # (Auto) 0.03 Immature Gran # (Auto) 0.12 Absolute Nucleated RBC 0.23 H Nucleated RBC % (auto) 3.9 Polychromasia 2+ Anisocytosis Present Tear Drop Cells 1+ Ovalocytes 1+ Sodium 153 H 154 H Potassium 3.6 Chloride 121 H Carbon Dioxide 23 Anion Gap 9 BUN 53 H Creatinine 0.97 Est Cr Clr Drug Dosing 46.6 eGFR 74.62 BUN/Creatinine Ratio 54.6 H Glucose 92 Lactate 2.0 Calcium 8.8 Magnesium 2.0 Total Bilirubin 3.6 H Direct Bilirubin 2.0 H AST 100 H ALT 80 H Alkaline Phosphatase 107 H Troponin I High Sens 33.8 H 33.2 H C-Reactive Protein B-Natriuretic Peptide 1660 H Total Protein 5.9 L Albumin 2.6 L Globulin 3.3 Albumin/Globulin Ratio 0.8 L Urine Color Urine Appearance Urine pH Ur Specific Melcroft Urine Protein Urine Glucose (UA) Urine Ketones Urine Blood Urine Nitrite Urine Bilirubin Urine Urobilinogen Ur Leukocyte Esterase Urine WBC (Auto) Urine RBC (Auto) U Hyaline Cast (Auto) U Epithel Cells (Auto) Urine Bacteria (Auto) Urine Yeast Urine Comment Adenovirus (PCR) Not Detected B. pertussis DNA (PCR) Not Detected B.parapertussis DNA PCR Not Detected C. glabrata (PCR) DETECTED A C. pneumoniae DNA (PCR) Not Detected Coronavirus OC43 (PCR) Not Detected Coronavirus HKU1 (PCR) Not Detected Coronavirus 229E (PCR) Not Detected SARS-CoV-2 (PCR) Not Detected Coronavirus NL63 (PCR) Not Detected Human Metapneumovir PCR Not Detected Influenza Type A (PCR) Not Detected Influenza Type B (PCR) Not Detected M. pneumoniae (PCR) Not Detected Parainfluenza 1 (PCR) Not Detected Parainfluenza 2 (PCR) Not Detected Parainfluenza 3 (PCR) Not Detected Parainfluenza 4 (PCR) Not Detected RSV (PCR) Not Detected Entero/Rhino (PCR) Not Detected Bld Cult ID Panel PCR See PCR Comment 10/30/24 10/30/24 10/30/24 17:17 17:56 22:45 WBC RBC Hgb Hct MCV MCH MCHC RDW Std Deviation RDW Coeff of Layo Plt Count MPV Immature Gran % (Auto) Neut % (Auto) Lymph % (Auto) Anderson % (Auto) Eos % (Auto) Baso % (Auto) Neut # (Auto) Lymph # (Auto) Anderson # (Auto) Eos # (Auto) Baso # (Auto) Immature Gran # (Auto) Absolute Nucleated RBC Nucleated RBC % (auto) Polychromasia Anisocytosis Tear Drop Cells Ovalocytes Sodium 154 H 154 H Potassium Chloride Carbon Dioxide Anion Gap BUN Creatinine Est Cr Clr Drug Dosing eGFR BUN/Creatinine Ratio Glucose Lactate Calcium Magnesium Total Bilirubin Direct Bilirubin AST ALT Alkaline Phosphatase Troponin I High Sens C-Reactive Protein B-Natriuretic Peptide Total Protein Albumin Globulin Albumin/Globulin Ratio Urine Color Dark Yellow Urine Appearance Cloudy A Urine pH 5.5 Ur Specific Melcroft 1.022 Urine Protein 1+ H Urine Glucose (UA) Negative Urine Ketones Trace H Urine Blood 3+ H Urine Nitrite Negative Urine Bilirubin 1+ H Urine Urobilinogen Positive H Ur Leukocyte Esterase 3+ H Urine WBC (Auto) >50 H Urine RBC (Auto) 11-20 H U Hyaline Cast (Auto) 0-2 U Epithel Cells (Auto) 0-2 Urine Bacteria (Auto) 1+ H Urine Yeast Present A Urine Comment Adenovirus (PCR) B. pertussis DNA (PCR) B.parapertussis DNA PCR C. glabrata (PCR) C. pneumoniae DNA (PCR) Coronavirus OC43 (PCR) Coronavirus HKU1 (PCR) Coronavirus 229E (PCR) SARS-CoV-2 (PCR) Coronavirus NL63 (PCR) Human Metapneumovir PCR Influenza Type A (PCR) Influenza Type B (PCR) M. pneumoniae (PCR) Parainfluenza 1 (PCR) Parainfluenza 2 (PCR) Parainfluenza 3 (PCR) Parainfluenza 4 (PCR) RSV (PCR) Entero/Rhino (PCR) Bld Cult ID Panel PCR 10/31/24 11/01/24 07:44 09:27 WBC 6.77 RBC 3.50 L Hgb 9.6 L Hct 32.1 L MCV 91.7 MCH 27.4 MCHC 29.9 L RDW Std Deviation 64.2 H RDW Coeff of Layo 20.4 H Plt Count 59 L MPV 11.3 Immature Gran % (Auto) Neut % (Auto) Lymph % (Auto) Anderson % (Auto) Eos % (Auto) Baso % (Auto) Neut # (Auto) Lymph # (Auto) Anderson # (Auto) Eos # (Auto) Baso # (Auto) Immature Gran # (Auto) Absolute Nucleated RBC 0.17 H Nucleated RBC % (auto) 2.5 Polychromasia Anisocytosis Tear Drop Cells Ovalocytes Sodium 154 H 151 H Potassium 3.4 L 3.5 Chloride 123 H 120 H Carbon Dioxide 25 20 L Anion Gap 6 11 BUN 43 H 37 H Creatinine 0.84 0.94 Est Cr Clr Drug Dosing 47.8 42.7 eGFR 83.36 77.49 BUN/Creatinine Ratio 51.2 H 39.4 H Glucose 101 H 115 H Lactate Calcium 8.4 L 8.5 L Magnesium Total Bilirubin 3.3 H 3.2 H Direct Bilirubin AST 57 H 43 H ALT 58 H 47 Alkaline Phosphatase 95 95 Troponin I High Sens C-Reactive Protein 11.19 H B-Natriuretic Peptide Total Protein 5.4 L 5.9 L Albumin 2.3 L 2.3 L Globulin 3.1 3.6 Albumin/Globulin Ratio 0.7 L 0.6 L Urine Color Urine Appearance Urine pH Ur Specific Melcroft Urine Protein Urine Glucose (UA) Urine Ketones Urine Blood Urine Nitrite Urine Bilirubin Urine Urobilinogen Ur Leukocyte Esterase Urine WBC (Auto) Urine RBC (Auto) U Hyaline Cast (Auto) U Epithel Cells (Auto) Urine Bacteria (Auto) Urine Yeast Urine Comment Adenovirus (PCR) B. pertussis DNA (PCR) B.parapertussis DNA PCR C. glabrata (PCR) C. pneumoniae DNA (PCR) Coronavirus OC43 (PCR) Coronavirus HKU1 (PCR) Coronavirus 229E (PCR) SARS-CoV-2 (PCR) Coronavirus NL63 (PCR) Human Metapneumovir PCR Influenza Type A (PCR) Influenza Type B (PCR) M. pneumoniae (PCR) Parainfluenza 1 (PCR) Parainfluenza 2 (PCR) Parainfluenza 3 (PCR) Parainfluenza 4 (PCR) RSV (PCR) Entero/Rhino (PCR) Bld Cult ID Panel PCR Diagnostic Findings Gallbladder Ultrasound 10/30/24 13:04 ULTRASOUND RIGHT UPPER QUADRANT ABDOMEN CLINICAL HISTORY: Elevated hepatic transaminases. COMPARISON STUDY: Abdominal CT dated 10/30/2024 and 03/15/2019 TECHNIQUE: Real-time, grayscale, and color flow sonography of the right upper quadrant of the abdomen was performed. Images are reviewed in the transverse and longitudinal planes. FINDINGS: Liver: The liver is normal in size and echotexture. There is no intrahepatic biliary ductal dilatation. The main portal vein is patent. A subcentimeter hepatic cyst is incidentally noted. Dilatation of the IVC and hepatic veins suggests cardiac dysfunction. Gallbladder: The gallbladder is distended and contains layering gallstones as well as biliary sludge. There is no gallbladder wall thickening or pericholecystic fluid. A sonographic Valenzuela's sign is reportedly absent. The common bile duct measures up to 0.5 cm in diameter. 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 Visualized portions of the pancreatic head and body are otherwise grossly normal in appearance. The splenic vein is patent. Right kidney: Survey images of the right kidney demonstrate normal size and echotexture. There is a 1.3 cm shadowing calculus in the right renal pelvis. There is mild to moderate right-sided hydronephrosis. A 3.3 cm cyst is noted in the right upper pole. Ascites: None. IMPRESSION: 1. Distended gallbladder with layering gallstones and biliary sludge. There is no convincing sonographic evidence of acute cholecystitis. If there is strong clinical concern for acute cholecystitis this could be further assessed with a nuclear hepatobiliary scan. 2. There is a 1.3 cm calculus in the right renal pelvis with mild/moderate right-sided hydronephrosis. This likely causes at least intermittent obstruction. 3. There is dilatation of the IVC and hepatic veins suggesting cardiac dysfunction/congestive hepatopathy. Correlate clinically. 4. Additional findings as above. ACT 112: Negative or not required by law. Electronically signed by: Gee Dawson M.D. 10/30/2024 4:00 PM Chest X-Ray 11/01/24 07:52 XR chest 1V portable CLINICAL HISTORY: r/o PNA, volume overload COMPARISON STUDY: 10/30/2024 FINDINGS: Stable CABG. Stable cardiomegaly with mild pulmonary vascular congestion. There is interval stranding and faint patchy opacity at the right mid lung and at the right lung base. There is increased opacity at the left base with partial obscuration of the left hemidiaphragm. No pneumothorax. IMPRESSION: Increased pulmonary opacities suggestive of pneumonia. ACT 112: Negative or not required by law. Electronically signed by: Johnny Jordan M.D. 11/01/2024 8:14 AM Medications Administered Current Inpatient Medications Acetaminophen (Acetaminophen 650 Mg Supp) 650 mg WA Q4H PRN PRN Reason: Temp/Pain Stop: 11/29/24 14:59 Last Admin: 10/30/24 21:50 Dose: 650 mg Acetylcysteine (Acetylcysteine 20% Inhal Soln 4ml Dispensed By Resp.) 5 ml INH Q12R JENNIFER Stop: 12/01/24 07:44 Last Admin: 11/01/24 08:10 Dose: 5 ml Albuterol (Albut/Ipratrop 3mg/0.5mg Neb 3 Ml Vial) 3 ml NEB Q6R JENNIFER; Protocol Stop: 12/01/24 07:59 Last Admin: 11/01/24 08:10 Dose: 3 ml Piperacillin Sod/Tazobactam Sod (Zosyn) 4.5 gm in 100 mls @ 25 mls/hr IV Q8H JENNIFER; Protocol Stop: 11/09/24 17:59 Last Admin: 11/01/24 11:15 Dose: 25 mls/hr Vancomycin HCl (Vancomycin Hcl) 1,000 mg in 270 mls @ 200 mls/hr IV Q18H JENNIFER Stop: 11/11/24 01:59 Last Infusion: 11/01/24 04:23 Dose: Infused Levothyroxine Sodium 37.5 mcg/ (Syringe) 1.875 mls @ 2 mls/min IV Q72H JENNIFER; Protocol Stop: 12/03/24 06:29 Dextrose (D5w) 1,000 mls @ 80 mls/hr IV .[id number] JENNIFER Stop: 11/03/24 10:59 Last Infusion: 11/01/24 11:15 Dose: 80 mls/hr Miscellaneous Information (Vancomycin Consult Active) 1 each N/A UD PRN PRN Reason: Consult Stop: 11/29/24 11:22 Petrolatum (Butt Paste (Zinc Oxide 16%) 171 Appln/57 Gm Jar) 1 appln TOP DAILY JENNIFER Stop: 11/30/24 08:59 Last Admin: 11/01/24 09:12 Dose: 1 appln Sodium Chloride (Sodium Chlor 7% 4 Ml Neb) 4 ml NEB BIDR JENNIFER Stop: 12/01/24 18:59 PG Care Time/CCT Total # of Minutes Spent Total Time Spent with Patient: Total time spent is greater than 50% in coordination of care (as documented) at patient's floor/unit and/or counseling patient: Coding Level of Care Code 24647 SUB INP/OBS CARE 2/35MIN Diagnoses Sepsis A41.9 Dementia F03.90 History of coronary artery bypass graft Z95.1 CKD (chronic kidney disease), stage III N18.30 Hypothyroidism E03.9 Dyslipidemia E78.5 Time Spent (min) 50
[2024-11-01 16:48] LABS: Anion Gap 10.0 (3-11); Blood Urea Nitrogen 35.0 mg/dl (6-23); Calcium 8.5 mg/dl (8.6-10.3); Carbon Dioxide 24.0 mmol/L (21-32); Chloride 118.0 mmol/L (98-107); Creatinine Clr Calc Pharmacy 43.2 ml/min; Glucose 134.0 mg/dl (70-99(Fasting)); Potassium 3.3 mmol/L (3.5-5.1); Sodium 152.0 mmol/L (136-145)
[2024-11-01] MEDS: SODIUM CHLOR 7% 4 ML NEB NEB SCH (19:23)
[2024-11-01 21:28] LABS: Anion Gap 10.0 (3-11); Blood Urea Nitrogen 34.0 mg/dl (6-23); Calcium 8.3 mg/dl (8.6-10.3); Carbon Dioxide 21.0 mmol/L (21-32); Chloride 118.0 mmol/L (98-107); Creatinine Clr Calc Pharmacy 41.4 ml/min; Glucose 149.0 mg/dl (70-99(Fasting)); Potassium 3.4 mmol/L (3.5-5.1); Sodium 149.0 mmol/L (136-145)
[2024-11-02 06:50] LABS: Creatinine Clr Calc Pharmacy 42.3 ml/min
[2024-11-02] MEDS: MoRPHine SULFATE 2 MG/ML CARP IV ONE (08:25)
--- NOTE | 2024-11-02 09:08 | Pharmacy Report ---
Pharmacy PK ABX Note - Date of Service November 02, 2024 - Assessment and Plan Assessment 11/02: Reviewed vancomycin level this AM, predicting therapeutic AUC/SUNSHINE, continue current regimen. Yeast growing in urine and blood 04/07, caspofungin started. Recommend ID consult for further recommendations. 10/31: 89 year old M receiving vancomycin/Zosyn for treatment of suspected gallbladder infection. Pertinent microbiologic data includes: blood and urine cultures growing pending. Plan Vancomycin * Loading dose: 1250 mg IV x 1 * Maintenance dose: 1000 mg IV every 18 hours * Regimen is predicted to achieve target AUC/SUNSHINE of 400-600 mg/L.hr * Random level ordered for: 11/02/24 with AM labs Pharmacy will continue to follow and will adjust dose/frequency as necessary. Thank you. Pharmacy has transitioned to AUC monitoring for vancomycin. AUC/SUNSHINE is the pre ferred PK/PD target and is associated with decreased risk of nephrotoxicity compared to traditional trough targets.
[2024-11-02] MEDS: CASPOFUNGIN 70 MG in SODIUM CHLORIDE 0.9% 250 ML IV ONE (10:01)
[2024-11-02] MEDS: DEXTROSE 5% 1,000 ML IV SCH (11:12)
--- NOTE | 2024-11-02 13:08 | Hospitalist Progress Note ---
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 he's on 5 liter oxygen (baseline of 2 liter) he's breathing at 35-50 breath per minutes does not want LATH TIER acute on chronic respiratory failure on 5 liter, basline of 2 liter #Sepsis in an 89 yo male with elevated bilirrubin pointing towards a gallbladder problem. US shows evidence of distended gallbladder, although no evidence of acute cholecystitis, will continue zosyn for now may also benefit from ERCP vs perc margarette tube if not deemed a candidate for surgery. Family is unsure if they would proceed with surgery. Family does not want him to go to comfort measures as of yet. CAD Patient with history of CAD and quadruple bypass #severe dementia: non-verbal at baseline. dependently on ADL will continue supportive care will hold escitalopram. #hypothyroidism: placed on iv levothyroxine #CKD stage IIIb stable will monitor #CAD holding metoprolol, may need IV dose to prevent rebound tachycardia if unable to talk oral intake famil update updated for 25 minutes in the morning and then another 20 minutes in the afternoon Admission and Anticipated Discharge Date Admission Date: October 30, 2024 Subjective he was breathing at 35-45 breath per minutes spoke with about palliative care and LATH TIER but she's defer LATH TIER ongoing antibiotics and ongoing treatment for hypernatremia on D5W 100cc understand that he's has poor prognosis, will likely within next 3-6 months however, she does not want LATH TIER requesting ongoing medical care Physical Exam Physical Exam: VITALS: Reviewed. WEIGHT/BMI reviewed. General: ill appearing -Head: NC/AT; -Mouth and throat: MMM. Normal gums, muc marcel, palate,. Good dentition. NECK: Supple, with no masses. CV: RRR, no m/r/g. LUNGS: congested breath sound ABD: Soft, NT/ND, NBS, no masses or organomegaly. EXT: No clubbing, cyanosis, or edema. NEURO: non-verbal Results & Data Results & Data Vital Signs (Past 12 Hours) Vital Signs Temp Pulse Resp BP Pulse Ox O2 Del Method O2 Flow Rate 11/02/24 07:32 37.2 C 60 28 H 121/70 90 Nasal Cannula 5 11/02/24 07:24 68 24 96 Nasal Cannula 5 Laboratory Results Laboratory Results - last 72 hr 10/30/24 10/30/24 10/30/24 11:20 11:30 14:36 WBC RBC Hgb Hct MCV MCH MCHC RDW Std Deviation RDW Coeff of Layo Plt Count MPV Absolute Nucleated RBC Nucleated RBC % (auto) Sodium 154 H Potassium Chloride Carbon Dioxide Anion Gap BUN Creatinine Est Cr Clr Drug Dosing eGFR BUN/Creatinine Ratio Glucose Calcium Total Bilirubin Direct Bilirubin 2.0 H AST ALT Alkaline Phosphatase Troponin I High Sens 33.2 H C-Reactive Protein B-Natriuretic Peptide 1660 H Total Protein Albumin Globulin Albumin/Globulin Ratio Urine Color Urine Appearance Urine pH Ur Specific Tyler Urine Protein Urine Glucose (UA) Urine Ketones Urine Blood Urine Nitrite Urine Bilirubin Urine Urobilinogen Ur Leukocyte Esterase Urine WBC (Auto) Urine RBC (Auto) U Hyaline Cast (Auto) U Epithel Cells (Auto) Urine Bacteria (Auto) Urine Yeast Urine Comment Random Vancomycin Adenovirus (PCR) Not Detected B. pertussis DNA (PCR) Not Detected B.parapertussis DNA PCR Not Detected C. glabrata (PCR) DETECTED A C. pneumoniae DNA (PCR) Not Detected Coronavirus OC43 (PCR) Not Detected Coronavirus HKU1 (PCR) Not Detected Coronavirus 229E (PCR) Not Detected SARS-CoV-2 (PCR) Not Detected Coronavirus NL63 (PCR) Not Detected Human Metapneumovir PCR Not Detected Influenza Type A (PCR) Not Detected Influenza Type B (PCR) Not Detected M. pneumoniae (PCR) Not Detected Parainfluenza 1 (PCR) Not Detected Parainfluenza 2 (PCR) Not Detected Parainfluenza 3 (PCR) Not Detected Parainfluenza 4 (PCR) Not Detected RSV (PCR) Not Detected Entero/Rhino (PCR) Not Detected Bld Cult ID Panel PCR See PCR Comment 10/30/24 10/30/24 10/30/24 17:17 17:56 22:45 WBC RBC Hgb Hct MCV MCH MCHC RDW Std Deviation RDW Coeff of Layo Plt Count MPV Absolute Nucleated RBC Nucleated RBC % (auto) Sodium 154 H 154 H Potassium Chloride Carbon Dioxide Anion Gap BUN Creatinine Est Cr Clr Drug Dosing eGFR BUN/Creatinine Ratio Glucose Calcium Total Bilirubin Direct Bilirubin AST ALT Alkaline Phosphatase Troponin I High Sens C-Reactive Protein B-Natriuretic Peptide Total Protein Albumin Globulin Albumin/Globulin Ratio Urine Color Dark Yellow Urine Appearance Cloudy A Urine pH 5.5 Ur Specific Tyler 1.022 Urine Protein 1+ H Urine Glucose (UA) Negative Urine Ketones Trace H Urine Blood 3+ H Urine Nitrite Negative Urine Bilirubin 1+ H Urine Urobilinogen Positive H Ur Leukocyte Esterase 3+ H Urine WBC (Auto) >50 H Urine RBC (Auto) 11-20 H U Hyaline Cast (Auto) 0-2 U Epithel Cells (Auto) 0-2 Urine Bacteria (Auto) 1+ H Urine Yeast Present A Urine Comment Random Vancomycin Adenovirus (PCR) B. pertussis DNA (PCR) B.parapertussis DNA PCR C. glabrata (PCR) C. pneumoniae DNA (PCR) Coronavirus OC43 (PCR) Coronavirus HKU1 (PCR) Coronavirus 229E (PCR) SARS-CoV-2 (PCR) Coronavirus NL63 (PCR) Human Metapneumovir PCR Influenza Type A (PCR) Influenza Type B (PCR) M. pneumoniae (PCR) Parainfluenza 1 (PCR) Parainfluenza 2 (PCR) Parainfluenza 3 (PCR) Parainfluenza 4 (PCR) RSV (PCR) Entero/Rhino (PCR) Bld Cult ID Panel PCR 10/31/24 11/01/24 11/01/24 07:44 09:27 14:39 WBC 6.77 RBC 3.50 L Hgb 9.6 L Hct 32.1 L MCV 91.7 MCH 27.4 MCHC 29.9 L RDW Std Deviation 64.2 H RDW Coeff of Layo 20.4 H Plt Count 59 L MPV 11.3 Absolute Nucleated RBC 0.17 H Nucleated RBC % (auto) 2.5 Sodium 154 H 151 H 152 H Potassium 3.4 L 3.5 3.3 L Chloride 123 H 120 H 118 H Carbon Dioxide 25 20 L 24 Anion Gap 6 11 10 BUN 43 H 37 H 35 H Creatinine 0.84 0.94 0.93 Est Cr Clr Drug Dosing 47.8 42.7 43.2 eGFR 83.36 77.49 78.49 BUN/Creatinine Ratio 51.2 H 39.4 H 37.6 H Glucose 101 H 115 H 134 H Calcium 8.4 L 8.5 L 8.5 L Total Bilirubin 3.3 H 3.2 H Direct Bilirubin AST 57 H 43 H ALT 58 H 47 Alkaline Phosphatase 95 95 Troponin I High Sens C-Reactive Protein 11.19 H B-Natriuretic Peptide Total Protein 5.4 L 5.9 L Albumin 2.3 L 2.3 L Globulin 3.1 3.6 Albumin/Globulin Ratio 0.7 L 0.6 L Urine Color Urine Appearance Urine pH Ur Specific Tyler Urine Protein Urine Glucose (UA) Urine Ketones Urine Blood Urine Nitrite Urine Bilirubin Urine Urobilinogen Ur Leukocyte Esterase Urine WBC (Auto) Urine RBC (Auto) U Hyaline Cast (Auto) U Epithel Cells (Auto) Urine Bacteria (Auto) Urine Yeast Urine Comment Random Vancomycin Adenovirus (PCR) B. pertussis DNA (PCR) B.parapertussis DNA PCR C. glabrata (PCR) C. pneumoniae DNA (PCR) Coronavirus OC43 (PCR) Coronavirus HKU1 (PCR) Coronavirus 229E (PCR) SARS-CoV-2 (PCR) Coronavirus NL63 (PCR) Human Metapneumovir PCR Influenza Type A (PCR) Influenza Type B (PCR) M. pneumoniae (PCR) Parainfluenza 1 (PCR) Parainfluenza 2 (PCR) Parainfluenza 3 (PCR) Parainfluenza 4 (PCR) RSV (PCR) Entero/Rhino (PCR) Bld Cult ID Panel PCR 11/01/24 11/02/24 20:11 06:13 WBC RBC Hgb Hct MCV MCH MCHC RDW Std Deviation RDW Coeff of Layo Plt Count MPV Absolute Nucleated RBC Nucleated RBC % (auto) Sodium 149 H Potassium 3.4 L Chloride 118 H Carbon Dioxide 21 Anion Gap 10 BUN 34 H Creatinine 0.97 0.95 Est Cr Clr Drug Dosing 41.4 42.3 eGFR 74.62 76.51 BUN/Creatinine Ratio 35.1 H Glucose 149 H Calcium 8.3 L Total Bilirubin Direct Bilirubin AST ALT Alkaline Phosphatase Troponin I High Sens C-Reactive Protein B-Natriuretic Peptide Total Protein Albumin Globulin Albumin/Globulin Ratio Urine Color Urine Appearance Urine pH Ur Specific Tyler Urine Protein Urine Glucose (UA) Urine Ketones Urine Blood Urine Nitrite Urine Bilirubin Urine Urobilinogen Ur Leukocyte Esterase Urine WBC (Auto) Urine RBC (Auto) U Hyaline Cast (Auto) U Epithel Cells (Auto) Urine Bacteria (Auto) Urine Yeast Urine Comment Random Vancomycin 16.7 Adenovirus (PCR) B. pertussis DNA (PCR) B.parapertussis DNA PCR C. glabrata (PCR) C. pneumoniae DNA (PCR) Coronavirus OC43 (PCR) Coronavirus HKU1 (PCR) Coronavirus 229E (PCR) SARS-CoV-2 (PCR) Coronavirus NL63 (PCR) Human Metapneumovir PCR Influenza Type A (PCR) Influenza Type B (PCR) M. pneumoniae (PCR) Parainfluenza 1 (PCR) Parainfluenza 2 (PCR) Parainfluenza 3 (PCR) Parainfluenza 4 (PCR) RSV (PCR) Entero/Rhino (PCR) Bld Cult ID Panel PCR Diagnostic Findings Chest X-Ray 11/01/24 07:52 XR chest 1V portable CLINICAL HISTORY: r/o PNA, volume overload COMPARISON STUDY: 10/30/2024 FINDINGS: Stable CABG. Stable cardiomegaly with mild pulmonary vascular congestion. There is interval stranding and faint patchy opacity at the right mid lung and at the right lung base. There is increased opacity at the left base with partial obscuration of the left hemidiaphragm. No pneumothorax. IMPRESSION: Increased pulmonary opacities suggestive of pneumonia. ACT 112: Negative or not required by law. Electronically signed by: Johnny Jordan M.D. 11/01/2024 8:14 AM PG Care Time/CCT Total # of Minutes Spent Total Time Spent with Patient: Total time spent is greater than 50% in coordination of care (as documented) at patient's floor/unit and/or counseling patient: Coding Level of Care Code 13213 SUB INP/OBS CARE 2/35MIN Diagnoses Sepsis A41.9 Dementia F03.90 History of coronary artery bypass graft Z95.1 CKD (chronic kidney disease), stage III N18.30 Hypothyroidism E03.9 Dyslipidemia E78.5 Time Spent (min) 35
--- NOTE | 2024-11-02 22:34 | Electrocardiogram Report ---
Test Reason : Blood Pressure : */* mmHG Vent. Rate : 61 BPM Atrial Rate : 58 BPM P-R Int : 196 ms QRS Dur : 204 ms QT Int : 504 ms P-R-T Axes : * -79 99 degrees QTcB Int : 507 ms AV dual-paced rhythm with occasional ventricular-paced complexes Abnormal ECG When compared with ECG of 14-Feb-2024 02:41, No significant change was found Confirmed by Jose Elias Godoy ([id number]) on 11/02/2024 10:33:25 PM Referred By: [facility] Confirmed By: Jose Elias Godoy
[2024-11-03] MEDS: LEVOTHYROXINE SODIUM 37.5 MCG in SYRINGE 0 ML IV SCH (09:02)
[2024-11-03] MEDS: CASPOFUNGIN 50 MG in SODIUM CHLORIDE 0.9% 250 ML IV SCH (09:03)
[2024-11-03 09:13] LABS: Anion Gap 13.0 (3-11); Blood Urea Nitrogen 32.0 mg/dl (6-23); Calcium 8.2 mg/dl (8.6-10.3); Carbon Dioxide 18.0 mmol/L (21-32); Chloride 113.0 mmol/L (98-107); Creatinine Clr Calc Pharmacy 40.2 ml/min; Glucose 186.0 mg/dl (70-99(Fasting)); Potassium 3.2 mmol/L (3.5-5.1); Sodium 144.0 mmol/L (136-145)
[2024-11-03] MEDS ORDERED: LEVOTHYROXINE SODIUM 37.5 MCG in SYRINGE 0 ML IV SCH (09:45)
--- NOTE | 2024-11-03 10:15 | Hospitalist Progress Note ---
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 US shows distended gallbladder, negative for acute cholecystitis, will continue zosyn for now may also benefit from ERCP vs perc margarette tube if not deemed a candidate for surgery. Family is unsure if they would proceed with surgery. Family does not want him to go to comfort measures as of yet. CAD s/p bypass surgery #severe dementia: non-verbal at baseline. dependently on ADL will continue supportive care will hold escitalopram. #hypothyroidism: placed on iv levothyroxine #CKD stage IIIb- stable will monitor #CAD holding metoprolol, may need IV dose to prevent rebound tachycardia if unable to talk oral intake famil update updated for 25 minutes in the morning and then another 20 minutes in the afternoon Admission and Anticipated Discharge Date Admission Date: October 30, 2024 Subjective his hypernatremia resolved; improved to 146 cutting down D5W to 50cc/hours in addition, mentation still has not improved he's still on zosyn, and IV solumedrol tachypnea is similar than yesterday dementia, dysphagia. 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 WEIGHT/BMI reviewed. GEN: chronically ill; -Head: NC/AT; NECK: Supple, with no masses. CV: RRR, no m/r/g. LUNGS: tachypnea; congested breath sound; ABD: Soft, NT/ND, NBS, no masses or organomegaly. : N/A SKIN: Warm, well perfused. No skin rashes or abnormal lesions. MSK: No deformities, Normal gait. EXT: No clubbing, cyanosis, or edema. NEURO: non-verbal; does not follow command Results & Data Results & Data Vital Signs (Past 12 Hours) Vital Signs Temp Pulse Resp BP Pulse Ox O2 Del Method O2 Flow Rate 11/03/24 07:28 36.3 C L 63 28 H 127/65 98 Nasal Cannula 5 11/03/24 07:10 70 38 H 90 Nasal Cannula 5 11/03/24 00:13 61 17 91 Nasal Cannula 5 Laboratory Results Laboratory Results - last 72 hr 10/30/24 11/01/24 11/01/24 11:20 09:27 14:39 Sodium 151 H 152 H Potassium 3.5 3.3 L Chloride 120 H 118 H Carbon Dioxide 20 L 24 Anion Gap 11 10 BUN 37 H 35 H Creatinine 0.94 0.93 Est Cr Clr Drug Dosing 42.7 43.2 eGFR 77.49 78.49 BUN/Creatinine Ratio 39.4 H 37.6 H Glucose 115 H 134 H Calcium 8.5 L 8.5 L Total Bilirubin 3.2 H AST 43 H ALT 47 Alkaline Phosphatase 95 Total Protein 5.9 L Albumin 2.3 L Globulin 3.6 Albumin/Globulin Ratio 0.6 L Random Vancomycin C. glabrata (PCR) DETECTED A Bld Cult ID Panel PCR See PCR Comment 11/01/24 11/02/24 11/03/24 20:11 06:13 08:18 Sodium 149 H 144 Potassium 3.4 L 3.2 L Chloride 118 H 113 H Carbon Dioxide 21 18 L Anion Gap 10 13 H BUN 34 H 32 H Creatinine 0.97 0.95 1.00 Est Cr Clr Drug Dosing 41.4 42.3 40.2 eGFR 74.62 76.51 71.94 BUN/Creatinine Ratio 35.1 H 32.0 H Glucose 149 H 186 H Calcium 8.3 L 8.2 L Total Bilirubin AST ALT Alkaline Phosphatase Total Protein Albumin Globulin Albumin/Globulin Ratio Random Vancomycin 16.7 C. glabrata (PCR) Bld Cult ID Panel PCR Medications Administered Current Inpatient Medications Acetaminophen (Acetaminophen 650 Mg Supp) 650 mg RI Q4H PRN PRN Reason: Temp/Pain Stop: 11/29/24 14:59 Last Admin: 10/30/24 21:50 Dose: 650 mg Acetylcysteine (Acetylcysteine 20% Inhal Soln 4ml Dispensed By Resp.) 5 ml INH Q12R JENNIFER Stop: 12/01/24 07:44 Last Admin: 11/03/24 07:08 Dose: 5 ml Albuterol (Albut/Ipratrop 3mg/0.5mg Neb 3 Ml Vial) 3 ml NEB Q6R JENNIFER; Protocol Stop: 12/01/24 07:59 Last Admin: 11/03/24 07:08 Dose: 3 ml Piperacillin Sod/Tazobactam Sod (Zosyn) 4.5 gm in 100 mls @ 25 mls/hr IV Q8H [facility]; Protocol Stop: 11/09/24 17:59 Last Infusion: 11/03/24 05:04 Dose: Infused Vancomycin HCl (Vancomycin Hcl) 1,000 mg in 270 mls @ 200 mls/hr IV Q18H [facility] Stop: 11/11/24 01:59 Last Infusion: 11/03/24 09:03 Dose: Infused Levothyroxine Sodium 37.5 mcg/ (Syringe) 1.875 mls @ 2 mls/min IV Q72H [facility]; Protocol Stop: 12/03/24 06:29 Last Admin: 11/03/24 09:02 Dose: 2 mls/min Methylprednisolone 20 mg/ (Syringe) 0.32 mls @ 1.5 mls/min IV TID JENNIFER Stop: 12/02/24 07:59 Last Admin: 11/03/24 08:56 Dose: 1.5 mls/min Caspofungin 50 mg/ Sodium (Chloride) 260 mls @ 260 mls/hr IV DAILY [facility] Stop: 11/17/24 08:59 Last Admin: 11/03/24 09:03 Dose: 260 mls/hr Dextrose (D5w) 1,000 mls @ 50 mls/hr IV .Q20H [facility] Stop: 11/05/24 08:44 Miscellaneous Information (Vancomycin Consult Active) 1 each N/A UD PRN PRN Reason: Consult Stop: 11/29/24 11:22 Petrolatum (Butt Paste (Zinc Oxide 16%) 171 Appln/57 Gm Jar) 1 appln TOP DAILY JENNIFER Stop: 11/30/24 08:59 Last Admin: 11/03/24 08:56 Dose: 1 appln Sodium Chloride (Sodium Chlor 7% 4 Ml Neb) 4 ml NEB BIDR JENNIFER Stop: 12/01/24 18:59 Last Admin: 11/03/24 07:08 Dose: 4 ml PG Care Time/CCT Total # of Minutes Spent Total Time Spent with Patient: Total time spent is greater than 50% in coordination of care (as documented) at patient's floor/unit and/or counseling patient: Coding Level of Care Code 34982 SUB INP/OBS CARE 04/28MIN Diagnoses Sepsis A41.9 Dementia F03.90 History of coronary artery bypass graft Z95.1 CKD (chronic kidney disease), stage III N18.30 Hypothyroidism E03.9 Dyslipidemia E78.5 Time Spent (min) 25
[2024-11-03] MEDS: DEXTROSE 5% 1,000 ML IV SCH (10:38)
[2024-11-04 07:12] LABS: Anion Gap 11.0 (3-11); Blood Urea Nitrogen 35.0 mg/dl (6-23); Calcium 8.3 mg/dl (8.6-10.3); Carbon Dioxide 20.0 mmol/L (21-32); Chloride 113.0 mmol/L (98-107); Creatinine Clr Calc Pharmacy 44.1 ml/min; Glucose 178.0 mg/dl (70-99(Fasting)); Potassium 3.4 mmol/L (3.5-5.1); Sodium 144.0 mmol/L (136-145)
[2024-11-04] MEDS: POTASSIUM CHLORIDE / WTR 10 MEQ/100 ML PLCT IV SCH (08:46)
[2024-11-04 10:47] LABS: Alanine Aminotransferase 32.0 U/L (7-52); Alkaline Phosphatase 82.0 U/L (34-104); Bilirubin,Total 3.6 mg/dl (0.2-1.0); Total Protein 5.8 gm/dl (6.0-8.3)
[2024-11-04 11:06] LABS: Hematocrit (blood only) 29.7 % (42.0-52.0); Hemoglobin 9.5 g/dl (14.0-18.0); Mean Corpuscular Hemoglobin 28.4 pg (25.0-34.0); Mean Corpuscular Volume 88.7 fL (80.0-100.0); Platelet Count 61 K/uL (130-400); RDW Standard Deviation 60.4 fL (36.4-46.3); Red Blood Count 3.35 M/uL (4.70-6.10); White Blood Count 14.36 K/ul (4.8-10.8)
--- NOTE | 2024-11-04 11:09 | Hospitalist Progress Note ---
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 Elevated Liver enzymes: Could be due to stone repeat today may need MRCP, ERCP pneumonia, acute on chronic respiratory failure (baseline 2 liter) c/w zosyn. 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 US shows distended gallbladder, negative for acute cholecystitis, will continue zosyn for now may also benefit from ERCP vs perc margarette tube if not deemed a candidate for surgery. Family is unsure if they would proceed with surgery. CAD s/p bypass surgery #severe dementia: non-verbal at baseline. dependently on ADL will continue supportive care will hold escitalopram. #hypothyroidism: placed on iv levothyroxine #CKD stage IIIb- stable will monitor #CAD holding metoprolol, may need IV dose to prevent rebound tachycardia if unable to talk oral intake family update and daughter updated in person for 10 minutes on 11/04/2024 agreeable for palliative care evaluation. Admission and Anticipated Discharge Date Admission Date: October 30, 2024 Subjective his hyponatremia is resolved but AMS persist requested ongoing zosyn, ongoing monitor for LFT she understand prognosis is guarded, but still want medical management however, she is agreeable for palliative care evaluation, and talk to Barbara Robles. they still feel strongly that patient should has some oral liquid family accept risk of aspiration and Physical Exam Physical Exam: VITALS: Reviewed. WEIGHT/BMI reviewed. GEN: ill appearing; non-verbal Neuro: non-verbal; does not follow command -Head: NC/AT; CV: RRR, no m/r/g. LUNGS: tachypnea, congested breath sound; on 5 liter oxygen ABD: Soft, NT/ND, NBS, no masses or organomegaly. : N/A SKIN: Warm, well perfused. No skin rashes or abnormal lesions. MSK: No deformities, Normal gait. EXT: No clubbing, cyanosis, or edema. Results & Data Results & Data Vital Signs (Past 12 Hours) Vital Signs Temp Pulse Resp BP Pulse Ox O2 Del Method O2 Flow Rate 11/04/24 07:37 Nasal Cannula 5 11/04/24 07:30 35.9 C L 60 32 H 91/64 L 100 Room Air 11/04/24 06:58 74 26 H 94 Nasal Cannula 5 11/04/24 00:48 76 30 H 94 Nasal Cannula 5 Laboratory Results Laboratory Results - last 72 hr 11/01/24 11/01/24 11/02/24 14:39 20:11 06:13 Sodium 152 H 149 H Potassium 3.3 L 3.4 L Chloride 118 H 118 H Carbon Dioxide 24 21 Anion Gap 10 10 BUN 35 H 34 H Creatinine 0.93 0.97 0.95 Est Cr Clr Drug Dosing 43.2 41.4 42.3 eGFR 78.49 74.62 76.51 BUN/Creatinine Ratio 37.6 H 35.1 H Glucose 134 H 149 H Calcium 8.5 L 8.3 L Total Bilirubin Direct Bilirubin AST ALT Alkaline Phosphatase Total Protein Albumin Random Vancomycin 16.7 11/03/24 11/04/24 08:18 06:18 Sodium 144 144 Potassium 3.2 L 3.4 L Chloride 113 H 113 H Carbon Dioxide 18 L 20 L Anion Gap 13 H 11 BUN 32 H 35 H Creatinine 1.00 0.91 Est Cr Clr Drug Dosing 40.2 44.1 eGFR 71.94 80.56 BUN/Creatinine Ratio 32.0 H 38.5 H Glucose 186 H 178 H Calcium 8.2 L 8.3 L Total Bilirubin 3.6 H Direct Bilirubin 1.9 H AST 29 ALT 32 Alkaline Phosphatase 82 Total Protein 5.8 L Albumin 2.4 L Random Vancomycin Medications Administered Current Inpatient Medications Acetaminophen (Acetaminophen 650 Mg Supp) 650 mg MS Q4H PRN PRN Reason: Temp/Pain Stop: 11/29/24 14:59 Last Admin: 10/30/24 21:50 Dose: 650 mg Acetylcysteine (Acetylcysteine 20% Inhal Soln 4ml Dispensed By Resp.) 5 ml INH Q12R JENNIFER Stop: 12/01/24 07:44 Last Admin: 11/04/24 06:58 Dose: 5 ml Albuterol (Albut/Ipratrop 3mg/0.5mg Neb 3 Ml Vial) 3 ml NEB Q6R JENNIFER; Protocol Stop: 12/01/24 07:59 Last Admin: 11/04/24 06:58 Dose: 3 ml Piperacillin Sod/Tazobactam Sod (Zosyn) 4.5 gm in 100 mls @ 25 mls/hr IV Q8H [facility]; Protocol Stop: 11/09/24 17:59 Last Admin: 11/04/24 09:54 Dose: 25 mls/hr Levothyroxine Sodium 37.5 mcg/ (Syringe) 1.875 mls @ 2 mls/min IV Q72H [facility]; Protocol Stop: 12/03/24 06:29 Last Admin: 11/03/24 09:02 Dose: 2 mls/min Methylprednisolone 20 mg/ (Syringe) 0.32 mls @ 1.5 mls/min IV TID JENNIFER Stop: 12/02/24 07:59 Last Admin: 11/04/24 07:59 Dose: 1.5 mls/min Caspofungin 50 mg/ Sodium (Chloride) 260 mls @ 260 mls/hr IV DAILY [facility] Stop: 11/17/24 08:59 Last Infusion: 11/04/24 09:06 Dose: Infused Dextrose (D5w) 1,000 mls @ 50 mls/hr IV .Q20H [facility] Stop: 11/05/24 08:44 Last Infusion: 11/04/24 09:07 Dose: 50 mls/hr Potassium Chloride (K Cade / Wtr) 10 meq in 100 mls @ 100 mls/hr IV Q1H [facility] Stop: 11/04/24 11:29 Last Admin: 11/04/24 10:52 Dose: 100 mls/hr Morphine Sulfate (Morphine Sulfate 2 Mg/Ml Carp) 1 mg IV Q2R PRN PRN Reason: Shortness Of Breath Or Wheezing Stop: 11/05/24 20:16 Petrolatum (Butt Paste (Zinc Oxide 16%) 171 Appln/57 Gm Jar) 1 appln TOP DAILY JENNIFER Stop: 11/30/24 08:59 Last Admin: 11/04/24 09:08 Dose: 1 appln Sodium Chloride (Sodium Chlor 7% 4 Ml Neb) 4 ml NEB BIDR JENNIFER Stop: 12/01/24 18:59 Last Admin: 11/04/24 06:58 Dose: 4 ml PG Care Time/CCT Total # of Minutes Spent Total Time Spent with Patient: Total time spent is greater than 50% in coordination of care (as documented) at patient's floor/unit and/or counseling patient: Coding Level of Care Code 66510 SUB INP/OBS CARE 2/35MIN Diagnoses Sepsis A41.9 Dementia F03.90 History of coronary artery bypass graft Z95.1 CKD (chronic kidney disease), stage III N18.30 Hypothyroidism E03.9 Dyslipidemia E78.5 Time Spent (min) 35
[2024-11-04] MEDS: DOXYCYCLINE HYCLATE 100 MG in DEXTROSE 5% MINI-B 100 ML IV SCH (15:46)
[2024-11-05 08:11] LABS: Hematocrit (blood only) 31.1 % (42.0-52.0); Hemoglobin 9.5 g/dl (14.0-18.0); Mean Corpuscular Hemoglobin 27.7 pg (25.0-34.0); Mean Corpuscular Volume 90.7 fL (80.0-100.0); Platelet Count 53 K/uL (130-400); RDW Standard Deviation 63.7 fL (36.4-46.3); Red Blood Count 3.43 M/uL (4.70-6.10); White Blood Count 9.75 K/ul (4.8-10.8)
[2024-11-05 08:27] LABS: Anion Gap 12.0 (3-11); Blood Urea Nitrogen 44.0 mg/dl (6-23); Carbon Dioxide 18.0 mmol/L (21-32); Chloride 112.0 mmol/L (98-107); Potassium 4.1 mmol/L (3.5-5.1); Sodium 142.0 mmol/L (136-145)
[2024-11-05 08:28] LABS: Alanine Aminotransferase 29.0 U/L (7-52); Albumin Globulin Ratio 0.7 (0.9-2); Alkaline Phosphatase 68.0 U/L (34-104); Bilirubin,Total 3.7 mg/dl (0.2-1.0); Calcium 8.4 mg/dl (8.6-10.3); Creatinine Clr Calc Pharmacy 36.5 ml/min; Globulin 3.3 gm/dl (2.5-4.0); Glucose 171.0 mg/dl (70-99(Fasting)); Total Protein 5.7 gm/dl (6.0-8.3)
--- NOTE | 2024-11-05 08:42 | XRay Report ---
SINGLE VIEW CHEST CLINICAL HISTORY: Pneumonia. Respiratory failure. FINDINGS: 2 AP, portable, upright chest radiographs are compared to study dated 11/01/2024 and correla nathalie with chest CT dated 09/11/2023. The examination is severely degraded by portable technique and jose ent rotation. The patient's head obscures the left upper lung. A 2-lead cardiac pacemaker is in place . The patient is status post midline sternotomy. The heart is enlarged. There is pulmonary vascular c ongestion. Bilateral airspace opacities could represent pulmonary edema and/or multifocal pneumonia. There are layering pleural effusions with dependent consolidation. No pneumothorax is seen. The skele zoya structures are osteopenic. There are chronic/healed bilateral rib fractures. IMPRESSION: 1. Cardiomegaly and cardiac pacemaker with evidence of congestive failure. 2. Bilateral airspace opacities could represent pulmonary edema and/or pneumonia. Clinical correlatio n will be required and radiographic follow-up to resolution is recommended. 3. Layering pleural effusions with dependent consolidation. ACT 112: Negative or not required by law. Electronically signed by: Gee Dawson M.D. 11/05/2024 8:39 AM
[2024-11-05] MEDS: MoRPHine SULFATE 2 MG/ML CARP IV PRN (08:58)
--- NOTE | 2024-11-05 10:40 | Hospitalist Progress Note ---
Date of Service November 05, 2024 Assessment & Plan (1) Sepsis: Plan: Blood cultures done on October 30 reveal Roseann in 1 of 4 bottles. Repeat blood cultures requested today, November 05. Infectious disease consultation requested. He is on caspofungin currently. (2) Fungemia: Plan: Roseann isolated in 1 of 4 blood cultures obtained on October 30. He is currently on caspofungin. Blood cultures will be repeated today, November 05. Infectious disease consultation requested and pending. (3) Roseann UTI: Plan: Roseann isolated in the urine. He is now on caspofungin. (4) Noncardiogenic pulmonary edema: Plan: Chest x-ray interpreted as CHF but this appears to be noncardiogenic pulmonary edema, possibly related to his fungemia. Cardiac echo done in February 2023 reveals normal ejection fraction with mild MR. He has no overt CHF at this time (5) Acute respiratory failure with hypoxia: Plan: Supplemental oxygen per nasal cannula to maintain saturation greater than 90% (6) Metabolic encephalopathy: Plan: Present on admission. Supportive care. Treat underlying infectious process (7) Hyperbilirubinemia: Plan: Bilirubin level is mildly elevated although other liver enzymes are normal. Surgical consultation and GI consultation appreciated. Cholecystectomy is not indicated at this time. MRCP is not an option due to the presence of his pacemaker. Serial labs. Will follow (8) CKD (chronic kidney disease), stage III: Plan: Monitor intake and output. Serial labs (9) Dementia: Plan: At baseline. Supportive care Plan Prognosis appears to be very poor here. Family is present and aware. Palliative care consultation is pending. Eventual return to [facility] with hospice care seems to be in order. The family has already decided that a feeding tube is not an option. Continue DNR/DNI status for now with eventual comfort measures only Admission and Anticipated Discharge Date Admission Date: October 30, 2024 Subjective Unresponsive. Family is at the bedside. Woods catheter is in place with very concentrated appearing urine. He is n.p.o. and not on continuous IV fluids. Chest x-ray was interpreted as CHF but I suspect this could be noncardiogenic pulmonary edema related to his suspected fungemia. Blood cultures have been repeated and infectious disease consultation requested. He is on caspofungin along with intravenous Zosyn and Solu-Medrol. He is currently on 5 L of oxygen. Prognosis appears to be very poor at this time. Palliative care consultation has been requested and is pending. Doxycycline discontinued. Repeat blood cultures have been ordered. Supportive care for now. DNR/DNI status in force. Review of Systems 2 Review of Systems: The patient is unresponsive and cannot answer any questions regarding review of systems at this time Physical Exam 2 Physical Exam: General-unresponsive. No fever HEENT-head atraumatic and normocephalic, pupils equal and reactive to light, extraocular muscles intact Neck-no lymphadenopathy or thyromegaly, trachea midline Chest-scattered bilateral rhonchi. No audible wheezing Cardiac-regular rate and rhythm, normal S1 and S2 Abdomen-normal bowel sounds, no hepatosplenomegaly GUFoley catheter in place with concentrated urine Extremities-edematous extremities x 4 Skinecchymoses bilateral upper extremities noted Neuro-unresponsive. Cannot assess Psych-unresponsive. Cannot assess Results & Data Results & Data Vital Signs (Past 12 Hours) Vital Signs Temp Pulse Resp BP Pulse Ox O2 Del Method O2 Flow Rate 11/05/24 07:42 36.4 C L 60 28 H 112/69 93 Nasal Cannula 5 11/05/24 06:56 60 26 H 95 Nasal Cannula 5 Laboratory Results 11/05/24 07:29 11/05/24 07:29 PG Care Time/CCT Total # of Minutes Spent Total Time Spent with Patient: Total time spent is greater than 50% in coordination of care (as documented) at patient's floor/unit and/or counseling patient: Coding Level of Care Code 03435 SUB INP/OBS CARE 3/50MIN Diagnoses Sepsis A41.9 Fungemia B49 Roseann UTI B37.49 Noncardiogenic pulmonary edema J81.1 Acute respiratory failure with hypoxia J96.01 Metabolic encephalopathy G93.41 Hyperbilirubinemia E80.6 CKD (chronic kidney disease), stage III N18.30 Dementia F03.90
--- NOTE | 2024-11-05 16:51 | Palliative Care Consultation ---
Date of Consultation November 05, 2024 Assessment & Plan (1) Palliative care by specialist: Met with pt's and two adult daughters at bedside from 14:00-14:30 to discuss GOC. Introduced Palliative Medicine and explained our role in advanced care planning, symptom management and navigation through the progression of life limiting disease. Patient and/or family were receptive to palliative services for goals of care discussions. Reviewed we are different from hospice, a home health nurse visiting service. (2) Counseling regarding advanced directives and goals of care: Patient currently lacks decisional capacity based on the inability to convey understanding of personal PMHx, current medical condition, treatment options nor the risks / benefits/ potential outcomes of accepting/declining those options, and inability to make decisions based on such knowledge. Hospital does not have written documentation of patient wishes concerning his chosen proxy for medical decisions. Per PA [id number], in absence of written documentation of patient wishes, pt's proxy for medical decisions would be his Valencia. Pt DOES require a proxy for medical decisions. Pt's present at bedside and agreeable to serve as MDM proxy. Pt's and daughters expressed concern that pt has been progressively more withdrawn with little to no PO intake despite being on appropriate antibiotic and antifungal therapy for his known Roseann glabrata candidemia. 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 She shared concern that he has not had improvement in cognition, in fact has had cognitive decline despite 6 days of iv abx. Valencia shared concern that the pt has had progression of his dementia to the point of not consuming enough nutrition to sustain his life. She and her daughters all verbalized agreement that artificial feedings via tube/PEG would not be consistent with pt's values or wishes. Valencia shared that if pt is not able to consume proper nutrition orally, she would like to transition to comfort directed care and return to [facility] with hospice. Dean had some concerns about how comfort directed care would look for her . We disussed that all labs and diagnostic would cease and pt would be treated based on symptoms with the goal of relieving suffering and affording a peaceful dignified . Discussed hospice benefit: an interdisciplinary program offered by nurses, nurses aides, social workers, chaplains and a medical office clerk for patients with a terminal condition and a life expectancy of less than 6 months. This is covered by Medicare at 100%/no out of pocket expense to patient and all meds/supplies needed by patient for the reason they are on hospice are paid for/covered by hospice. The goal is assure quality of life of the patient in their home setting (home, snf, inpatient hospice setting) by providing symptoms management, psychosocial and spiritual support. However, they cannot offer 24 hours care and if the family is unable to provide that care, they will have to consider personal care with out of pocket cost vs. snf placement. We discussed the goals of hospice as a patient service and the goals of care; we discussed EOL trajectories and transitions jean the emotional impact of realizing mortality as a concrete reality from prior abstract considerations. Pt was reassured that no matter where they are along this trajectory, they are not alone - their medical team will remain by their side through their journey. Discussed the pros/cons of accepting help when especially weakened and distressed by pain-which would also help provide relief/decrease caregiver burden/strain. Valencia shared that she would like to see how pt does once he has finished current course of Abx. She remains hopeful that the patient's lethargy is related to infection rather than his dementia. She requested a ID consult, and to revisit goals of care later in the week. SHe shared that her plan iis to transition to hospice/comfort directed care if he decompensates further or fails to improve with a few more days on IV Abx. Plan Palliative care will continue to follow for ongoing GOC discussions and patient/family support. 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 He was found to have elevated bilirubin and Roseann glabrata candidemia and sent to ed for further evaluation. ID and GI were consulted for Roseann glabrata candidemia. CT A/P showed mild gallbladder distention, LLL opacity and RML opacity c/f pna vs. atelectasis; 1.5 cm renal pelvis calculus with associated R hydronephrosis. The patient was started on vancomycin and pip-tazo. BCx from ED grew Roseann glabrata in 1/ bottles. Allergies Allergy/AdvReac Type Severity Reaction Status Date / Time No Known Allergies Allergy Verified 08/14/24 11:28 Home Medications Medication Instructions Recorded Confirmed Type acetaminophen 325 mg tablet 650 mg PO Q4 PRN Fever Or Pain 02/09/23 10/30/24 History (Tylenol) aspirin 81 mg chewable tablet 81 mg PO QAM 02/09/23 10/30/24 History docusate sodium 100 mg tablet 100 mg PO Q24H PRN Constipation 02/09/23 10/30/24 History doxazosin 1 mg tablet 1 mg PO HS 02/09/23 10/30/24 History levothyroxine 50 mcg tablet 50 mcg PO QAM 02/09/23 10/30/24 History nitroglycerin 0.4 mg sublingual 0.4 mg sublingual Q24H PRN Chest 02/09/23 10/30/24 History tablet Pain sodium chloride 0.65 % nasal spray 2 spray NA Q2H PRN DRY 09/11/23 10/30/24 History aerosol (Saline Mist) NOSE/EPISTAXIS acetaminophen 160 mg/5 mL oral 640 mg PO Q6H PRN pain or fever 02/14/24 10/30/24 History elixir acetaminophen 650 mg rectal 650 mg ME Q8H PRN Discomfort ##0 02/14/24 10/30/24 History suppository bisacodyl 10 mg rectal suppository 10 mg ME DAILY PRN Constipation 02/14/24 10/30/24 History (Dulcolax (bisacodyl)) polyethylene glycol 3350 17 gram 17 g PO DAILY PRN Constipation 02/14/24 10/30/24 History oral powder packet (Miralax) metoprolol tartrate 25 mg tablet 12.5 mg (1/2 x 25 mg) PO DAILY #90 06/15/24 10/30/24 Rx tabs acetaminophen 650 mg rectal 650 mg ME Q4H PRN Temp/Pain 07/06/24 10/30/24 History suppository escitalopram oxalate 20 mg tablet 20 mg PO DAILY 07/06/24 10/30/24 History mineral oil-isopropyl myristat 1 applic topical BID Dry Skin on 07/06/24 10/30/24 History lotion hands zinc oxide-cod liver oil 40 % 1 applic topical DAILY Skin Care 07/06/24 10/30/24 History topical paste (Desitin) on BL Buttocks/Scrotum amoxicillin 400 mg-potassium 10 ml PO BID 10/30/24 10/30/24 History clavulanate 57 mg/5 mL oral suspension Patient History Medical History Pneumonia Adrenal insufficiency Sepsis Elevated troponin I level Pacemaker 10/2018 -- [employer] follows dr simpson last check - 02/2019 CAD (coronary artery disease) Acute hypotension Short-term memory loss 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 Sinus bradycardia Encounter for pre-operative examination Raynauds syndrome MILD (EFFECTING FINGERS) Hypertension Hyperlipidemia Cellulitis of left hand Surgical History History of tonsillectomy History of inguinal hernia repair Hx of hernia repair repair of inguinal hernia History of cataract surgery RT/ LT History of colonoscopy Blocked tear duct repair of of tear duct History of cardiac cath 02/2002 and then needed cabg x 4 Family History Sister Family history of diabetes mellitus Hypertension Family/Other Family history of diabetes mellitus Father Acute myocardial infarction Denies family history of Ovarian cancer Prostate cancer Myocardial infarction Breast cancer Colorectal cancer Social History Smoking Status: Smoker, status unknown Second Hand Exposure: No; Do You Dip or Chew Tobacco: No (pt intubated); Hx Alcohol Use: No Hx Substance Use: No Preferred Language: Polish Communication Ability: Unable Communication Ability Comment: pt intubated Visual Impairment: Limited Hearing Ability: Normal Book Sorter Required: No Beliefs That Will Affect Care: None marital status: Current Living Situation: Family Current Living Situation Comment: Tamika Koehler current occupational status: retired How many Children do You have: 2 Other Information That Helps Us Care for You: Yes (pureed/thickened food diet if/when possible) Feels Safe at Home: Yes Safety Concerns: Feels Safe At This Time Childhood Exposure to Second-Hand Smoke: No caffeine: Yes (coffee and sometimes tea ) Dental Care, Regularly: Yes Physical Activity Frequency: Daily Physical Activity Frequency Comment: walks 40 mins a day Seatbelt Use: always Sunscreen Use: Yes Assistive Devices: Mechanical Lift and Wheelchair Review of Systems Review of Systems: Unobtainable due to cognitive status Physical Exam Constitutional: + ill appearing, + cachectic and + frail appearing; no acute distress ENMT: external ear and nose normal, oropharynx normal Neck: trachea midline, no thyromegaly Respiratory: Auscultation: + diminished lung sounds and + crackles Cardiovascular: Rate/Rhythm: regular rate and regular rhythm Gastrointestinal (Abdomen): normal bowel sounds, soft, nontender, no hepatosplenomegaly Neurologic: moves all extremities; + not awake pt not responsive to verbal stimuli Results & Data Vital Signs (Past 12 Hours) Vital Signs Temp Pulse Resp BP Pulse Ox O2 Del Method O2 Flow Rate 11/05/24 15:47 36.7 C 60 24 135/80 93 Nasal Cannula 5 11/05/24 08:00 Nasal Cannula 5 11/05/24 07:42 36.4 C L 60 28 H 112/69 93 Nasal Cannula 5 11/05/24 06:56 60 26 H 95 Nasal Cannula 5 Laboratory Results Abnormal lab results 11/05/24 Range/Units 07:29 RBC 3.43 L (4.70-6.10) M/uL Hgb 9.5 L (14.0-18.0) g/dl Hct 31.1 L (42.0-52.0) % MCHC 30.5 L (32.0-36.0) g/dL RDW Std Deviation 63.7 H (36.4-46.3) fL RDW Coeff of Layo 21.8 H (11.5-14.5) % Plt Count 53 L (130-400) K/uL Absolute Nucleated RBC 0.28 H (0.00-0.12) K/uL Chloride 112 H (98-107) mmol/L Carbon Dioxide 18 L (21-32) mmol/L Anion Gap 12 H (3-11) BUN 44 H (6-23) mg/dl BUN/Creatinine Ratio 40.0 H (10-20) Glucose 171 H (70-99(Fasting)) mg/dl Calcium 8.4 L (8.6-10.3) mg/dl Total Bilirubin 3.7 H (0.2-1.0) mg/dl Total Protein 5.7 L (6.0-8.3) gm/dl Albumin 2.4 L (3.4-5.0) gm/dl Albumin/Globulin Ratio 0.7 L (0.9-2) Diagnostic Findings Abdomen/Pelvis CT 10/30/24 13:02 CT OF THE ABDOMEN AND PELVIS WITHOUT CONTRAST CLINICAL HISTORY: Vomiting. COMPARISON STUDY: CT of the abdomen and pelvis July 25, 2021. Right upper quadrant ultrasound September 11, 2023. TECHNIQUE: Axial images of the abdomen and pelvis were obtained without IV contrast. Images were reviewed in the axial, sagittal, and coronal planes. Automated exposure control was utilized for the study. A dose lowering technique was utilized adhering to the principles of ALARA. FINDINGS: Pacer leads are partially imaged. There are small bilateral pleural effusions. Mild right middle lobe ground glass opacity is partially imaged. Left lower lobe alveolar opacities are present. A 2.7 cm left breast nodular density on image 26 of 373 may represent gynecomastia when correlating with chest CT of September 11, 2023 although is indeterminate. Evaluation of the abdomen and pelvis is suboptimal given lack of contrast, difficulty positioning and diffuse anasarca. Unenhanced images of the liver, spleen, adrenal glands are unremarkable. Cystic lesions within the pancreatic head and uncinate process measure up to 1.7 cm. 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 No peripancreatic inflammation is present. There is no biliary or pancreatic ductal dilatation. The gallbladder is mildly distended. There is no evidence for a bowel obstruction. Moderate rectal wall thickening is present. Perirectal stranding is present. There is diffuse mesenteric stranding and a small amount of ascites within the abdomen. A 1.5 cm right renal pelvis calculus is present. There is mild right hydronephrosis. Low- attenuation bilateral renal lesions favor cysts. Bladder is moderately distended. Small layering bladder calculi are present. No lymphadenopathy is identified. Extensive vascular calcification is present. No acute fractures within the visualized skeletal structures are identified. IMPRESSION: 1. Suboptimal evaluation of the abdomen and pelvis given lack of contrast, difficulty positioning and diffuse anasarca. 2. No bowel obstruction. Moderate rectal wall thickening, a nonspecific finding. 3. Mild gallbladder distention. This can be assessed with right upper quadrant ultrasound. 4. Left lower lobe opacity which may represent pneumonia or atelectasis. Right middle lobe groundglass opacities favor pneumonia or pulmonary edema. 5. 1.5 cm renal pelvis calculus. Mild right hydronephrosis. Mildly distended bladder which contains tiny calculi. 6. Cardiomegaly with small bilateral pleural effusions. ACT 112: Negative or not required by law. Electronically signed by: Bay Moctezuma M.D. 10/30/2024 2:29 PM Gallbladder Ultrasound 10/30/24 13:04 ULTRASOUND RIGHT UPPER QUADRANT ABDOMEN CLINICAL HISTORY: Elevated hepatic transaminases. COMPARISON STUDY: Abdominal CT dated 10/30/2024 and 03/15/2019 TECHNIQUE: Real-time, grayscale, and color flow sonography of the right upper quadrant of the abdomen was performed. Images are reviewed in the transverse and longitudinal planes. FINDINGS: Liver: The liver is normal in size and echotexture. There is no intrahepatic b iliary ductal dilatation. The main portal vein is patent. A subcentimeter hepatic cyst is incidentally noted. Dilatation of the IVC and hepatic veins suggests cardiac dysfunction. Gallbladder: The gallbladder is distended and contains layering gallstones as well as biliary sludge. There is no gallbladder wall thickening or pericholecystic fluid. A sonographic Valenzuela's sign is reportedly absent. The common bile duct measures up to 0.5 cm in diameter. 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 Visualized portions of the pancreatic head and body are otherwise grossly normal in appearance. The splenic vein is patent. Right kidney: Survey images of the right kidney demonstrate normal size and echotexture. There is a 1.3 cm shadowing calculus in the right renal pelvis. There is mild to moderate right-sided hydronephrosis. A 3.3 cm cyst is noted in the right upper pole. Ascites: None. IMPRESSION: 1. Distended gallbladder with layering gallstones and biliary sludge. There is no convincing sonographic evidence of acute cholecystitis. If there is strong clinical concern for acute cholecystitis this could be further assessed with a nuclear hepatobiliary scan. 2. There is a 1.3 cm calculus in the right renal pelvis with mild/moderate right-sided hydronephrosis. This likely causes at least intermittent obstruction. 3. There is dilatation of the IVC and hepatic veins suggesting cardiac dysfunction/congestive hepatopathy. Correlate clinically. 4. Additional findings as above. ACT 112: Negative or not required by law. Electronically signed by: Gee Dawson M.D. 10/30/2024 4:00 PM Chest X-Ray 11/05/24 08:06 SINGLE VIEW CHEST CLINICAL HISTORY: Pneumonia. Respiratory failure. FINDINGS: 2 AP, portable, upright chest radiographs are compared to study dated 11/01/2024 and correlated with chest CT dated 09/11/2023. The examination is severely degraded by portable technique and patient rotation. The patient's head obscures the left upper lung. A 2-lead cardiac pacemaker is in place. The patient is status post midline sternotomy. The heart is enlarged. There is pulmonary vascular congestion. Bilateral airspace opacities could represent pulmonary edema and/or multifocal pneumonia. There are layering pleural effusions with dependent consolidation. No pneumothorax is seen. The skeletal structures are osteopenic. There are chronic/healed bilateral rib fractures. IMPRESSION: 1. Cardiomegaly and cardiac pacemaker with evidence of congestive failure. 2. Bilateral airspace opacities could represent pulmonary edema and/or pneumonia. Clinical correlation will be required and radiographic follow-up to resolution is recommended. 3. Layering pleural effusions with dependent consolidation. ACT 112: Negative or not required by law. Electronically signed by: Gee Dawson M.D. 11/05/2024 8:39 AM Medications Administered Current Inpatient Medications Acetaminophen (Acetaminophen 650 Mg Supp) 650 mg ME Q4H PRN PRN Reason: Temp/Pain Stop: 11/29/24 14:59 Last Admin: 10/30/24 21:50 Dose: 650 mg Albuterol (Albut/Ipratrop 3mg/0.5mg Neb 3 Ml Vial) 3 ml NEB BIDR JENNIFER; Protocol Stop: 12/05/24 18:59 Last Admin: 11/05/24 19:38 Dose: 3 ml Piperacillin Sod/Tazobactam Sod (Zosyn) 4.5 gm in 100 mls @ 25 mls/hr IV Q8H JENNIFER; Protocol Stop: 11/09/24 17:59 Last Admin: 11/05/24 18:55 Dose: 25 mls/hr Levothyroxine Sodium 37.5 mcg/ (Syringe) 1.875 mls @ 2 mls/min IV Q72H JENNIFER; Protocol Stop: 12/03/24 06:29 Last Admin: 11/03/24 09:02 Dose: 2 mls/min Methylprednisolone 20 mg/ (Syringe) 0.32 mls @ 1.5 mls/min IV TID JENNIFER Stop: 12/02/24 07:59 Last Admin: 11/05/24 20:01 Dose: 1.5 mls/min Caspofungin 50 mg/ Sodium (Chloride) 260 mls @ 260 mls/hr IV DAILY JENNIFER Stop: 11/17/24 08:59 Last Infusion: 11/05/24 09:16 Dose: Infused Petrolatum (Butt Paste (Zinc Oxide 16%) 171 Appln/57 Gm Jar) 1 appln TOP DAILY JENNIFER Stop: 11/30/24 08:59 Last Admin: 11/05/24 08:11 Dose: 1 appln PG Care Time/CCT Total # of Minutes Spent Total Time Spent with Patient: Total time spent is greater than 50% in coordination of care (as documented) at patient's floor/unit and/or counseling patient: Advanced Care Planning 99314 Advanced Care Planning 30 [place] [address] IN/OBS CONSULT LVL 3,45M Patient Type New Medical Decision Making Moderate Complexity Diagnoses Palliative care by specialist Z51.5 Counseling regarding advanced directives and goals of care Z71.89 Additional Codes Advanced Care Planning - 17984 Advanced Care Planning 30 Min: 51411 Advanced Care Planning 30 Min ([id number])
--- NOTE | 2024-11-05 17:50 | Infectious Disease Consult ---
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 ID is consulted for Roseann glabrata candidemia. The patient began to have nausea and vomiting 10 days CANDY ROLLER, which continued to worsen and became associated with increasing lethargy. He also seemed to have RUQ pain (grimaced if touched in that region). He also had yellow eyes. Upon presentation, afebrile, WBC 5.95 Hgb 8.8 plt 74 Cr 0.84 AST 100 ALT 80 ALP 107 (dbili 2.0). 10/30 CT A/P showed mild gallbladder distention, LLL opacity and RML opacity c/f pna vs. atelectasis; 1.5 cm renal pelvis calculus with associated R hydronephrosis. 10/30 RUQUS with distended GB, layering gallstones, and sludge; without definitive e/o acute cholecystitis; the R renal pelvic calculus and associated hydronephrosis are also seen. The patient was started on vancomycin and pip-tazo. BCx from 10/30 grew Roseann glabrata in 1/4 bottles. He was started on caspofungin. WBC increased to 14.36 on 11/04 then back to 9.75 on 11/05. The patient did also receive a 5d course of ceftriaxone at OSH for possible as piration pna after vomiting. This was given through a midline, which was placed on 10/19, and removed on 11/01 (after being admitted to [facility]). The patient has a pacemaker in place (placed 2018), dental implants, and sternal wires from his CABG. His Woods was placed this admission; he does not otherwise have a Woods at home. The patients daughter and are at bedside. On 11/05, he remains afebrile. AST 32 ALT 29 ALP 68 tbili 3.7. Discussion The patient developed lethargy, and was found to have elevated bilirubin, and BCx positive for Roseann glabrata. The Roseann glabrata is of unclear source, with potential sources considered including GI/biliary, urinary, and through venipuncture (note that pt had a recent midline IV in place that was only removed on 11/01 after admission). Given his elevated bilirubin and possible RUQ pain, he is being evaluated for a possible biliary source of infection, although CT A/P and RUQUS have not been definitive. His UCx were positive for Roseann glabrata, and imaging did show a 1.5 cm R renal pelvis stone with associated hydronephrosis; the Candiduria may be a from colonization (and thus could be primary urinary source) or could reflect hematogenous spread from elsewhere. The patients midline was placed on 10/19 for outpatient abx (for pna) and then removed on 11/01 after admission. 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 Repeat BCx from 11/05 are pending. Will also recommend TTE and ophtho evaluation. Would continue to monitor closely for any new/worsening focal complaints (e.g., joint pain, back pain) with low threshold to image/evaluate as possible metastatic infection. Note that palliative was consulted given the pts advanced dementia, and GOC discussions are ongoing. Recommendations: - Continue caspofungin 50 mg IV q24h for Roseann glabrata candidemia - Can continue pip-tazo for now, for possible GI/biliary source - F/u 10/30 BCx Roseann glabrata sensis - Obtain TTE - Low threshold for LOUISE if remains bacteremic - Repeat BCx daily until clear x48h - Recommend ophthalmology evaluation given that pt is unable to provide in formation about his symptoms - Consider urology evaluation given 1.5 cm R renal pelvic stone, hydronephrosis, and Candiduria - Continue to monitor closely for any new/worsening focal complaints (e.g., joint pain, back pain) with low threshold to image/evaluate as possible metastatic infection ID will continue to follow. Cherrie Leal MD, MHS Infectious Diseases [facility] Connect ID Connect direct line: [phone] Consultation Information Consultation was provided via telemedicine using two-way real-time interactive telecommunication between the patient and the telemedicine provider. For the duration of the visit, the provider was performing the assessment from a different facility than the patient. This includesuse of bluetooth stethoscope forauscultationperformed by the telepresenter that the telemedicine provider can hear if described in the physical exam. Produce Inspector contact information: Please call ID Connect Call Center . (Phone Number For Physician Use Only) After establishing a telemedicine visit, patient was: Patient was verified with two unique identifiers, Patient/authorized rep acknowledged consent and understanding and Gave permission to continue telehealth session Time Spent with Patient: Initial => 75 min History of Present Illness Reason for Consultation: Roseann glabrata candidemia. 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 ID is consulted for Roseann glabrata candidemia. The patient began to have nausea and vomiting 10 days CANDY ROLLER, which continued to worsen and became associated with increasing lethargy. He also seemed to have RUQ pain (grimaced if touched in that region). He also had yellow eyes. Upon presentation, afebrile, WBC 5.95 Hgb 8.8 plt 74 Cr 0.84 AST 100 ALT 80 ALP 107 (dbili 2.0). 10/30 CT A/P showed mild gallbladder distention, LLL opacity and RML opacity c/f pna vs. atelectasis; 1.5 cm renal pelvis calculus with associated R hydronephrosis. The patient was started on vancomycin and pip-tazo. BCx from 10/30 grew Roseann glabrata in 1/ bottles. He was started on caspofungin. WBC increased to 14.36 on 11/04 then back to 9.75 on 11/05. The patient did also receive a 5d course of ceftriaxone at OSH for possible aspiration pna after vomiting. This was given through a midline, which was p laced on 10/19, and removed on 11/01 (after being admitted to [facility]). The patient has a pacemaker in place (placed 2018), dental implants, and sternal wires from his CABG. His Woods was placed this admission; he does not otherwise have a Woods at home. The patients daughter and are at bedside. On 11/05, he remains afebrile. AST 32 ALT 29 ALP 68 tbili 3.7. Allergies Allergy/AdvReac Type Severity Reaction Status Date / Time No Known Allergies Allergy Verified 08/14/24 11:28 Home Medications Medication Instructions Recorded Confirmed Type acetaminophen 325 mg tablet 650 mg PO Q4 PRN Fever Or Pain 02/09/23 10/30/24 History (Tylenol) aspirin 81 mg chewable tablet 81 mg PO QAM 02/09/23 10/30/24 History docusate sodium 100 mg tablet 100 mg PO Q24H PRN Constipation 02/09/23 10/30/24 History doxazosin 1 mg tablet 1 mg PO HS 02/09/23 10/30/24 History levothyroxine 50 mcg tablet 50 mcg PO QAM 02/09/23 10/30/24 History nitroglycerin 0.4 mg sublingual 0.4 mg sublingual Q24H PRN Chest 02/09/23 10/30/24 History tablet Pain sodium chloride 0.65 % nasal spray 2 spray NA Q2H PRN DRY 09/11/23 10/30/24 History aerosol (Saline Mist) NOSE/EPISTAXIS acetaminophen 160 mg/5 mL oral 640 mg PO Q6H PRN pain or fever 02/14/24 10/30/24 History elixir acetaminophen 650 mg rectal 650 mg AL Q8H PRN Discomfort ##0 02/14/24 10/30/24 History suppository bisacodyl 10 mg rectal suppository 10 mg AL DAILY PRN Constipation 02/14/24 10/30/24 History (Dulcolax (bisacodyl)) polyethylene glycol 3350 17 gram 17 g PO DAILY PRN Constipation 02/14/24 10/30/24 History oral powder packet (Miralax) metoprolol tartrate 25 mg tablet 12.5 mg (1/2 x 25 mg) PO DAILY #90 06/15/24 10/30/24 Rx tabs acetaminophen 650 mg rectal 650 mg AL Q4H PRN Temp/Pain 07/06/24 10/30/24 History suppository escitalopram oxalate 20 mg tablet 20 mg PO DAILY 07/06/24 10/30/24 History mineral oil-isopropyl myristat 1 applic topical BID Dry Skin on 07/06/24 10/30/24 History lotion hands zinc oxide-cod liver oil 40 % 1 applic topical DAILY Skin Care 07/06/24 10/30/24 History topical paste (Desitin) on BL Buttocks/Scrotum amoxicillin 400 mg-potassium 10 ml PO BID 10/30/24 10/30/24 History clavulanate 57 mg/5 mL oral suspension Patient History Medical History Pneumonia Adrenal insufficiency Sepsis Elevated troponin I level Pacemaker 10/2018 -- [employer] follows dr simpson last check - 02/2019 CAD (coronary artery disease) Acute hypotension Short-term memory loss 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 Sinus bradycardia Encounter for pre-operative examination Raynauds syndrome MILD (EFFECTING FINGERS) Hypertension Hyperlipidemia Cellulitis of left hand Surgical History History of tonsillectomy History of inguinal hernia repair Hx of hernia repair repair of inguinal hernia History of cataract surgery RT/ LT History of colonoscopy Blocked tear duct repair of of tear duct History of cardiac cath 02/2002 and then needed cabg x 4 Family History Sister Family history of diabetes mellitus Hypertension Family/Other Family history of diabetes mellitus Father Acute myocardial infarction Denies family history of Ovarian cancer Prostate cancer Myocardial infarction Breast cancer Colorectal cancer Social History Smoking Status: Smoker, status unknown Second Hand Exposure: No; Do You Dip or Chew Tobacco: No (pt intubated); Hx Alcohol Use: No Hx Substance Use: No Preferred Language: Polish Communication Ability: Unable Communication Ability Comment: pt intubated Visual Impairment: Limited Hearing Ability: Normal Retail Sales Professional Required: No Beliefs That Will Affect Care: None marital status: Current Living Situation: Family Current Living Situation Comment: Tamika Koehler current occupational status: retired How many Children do You have: 2 Other Information That Helps Us Care for You: Yes (pureed/thickened food diet if/when possible) Feels Safe at Home: Yes Safety Concerns: Feels Safe At This Time Childhood Exposure to Second-Hand Smoke: No caffeine: Yes (coffee and sometimes tea ) Dental Care, Regularly: Yes Physical Activity Frequency: Daily Physical Activity Frequency Comment: walks 40 mins a day Seatbelt Use: always Sunscreen Use: Yes Assistive Devices: Mechanical Lift and Wheelchair Physical Exam Physical Exam: Exam obtained with assistance of an in-person telepresenter General: Somnolent HEENT: Conjunctivae non-injected, sclerae anicteric, MMM, OP clear. Resp: Respirations nonlabored. Abd: No obvious grimace to palpation : Woods in place with dark urine. Ext: No joint warmth or effusions noted. Skin: Ecchymoses of feet. No other rashes or lesions. Neuro: Asleep, not responsive to questioning. Psych: Pleasant, appropriate. Results & Data Vital Signs (Past 12 Hours) Vital Signs Temp Pulse Resp BP Pulse Ox O2 Del Method O2 Flow Rate 11/05/24 15:47 36.7 C 60 24 135/80 93 Nasal Cannula 5 11/05/24 08:00 Nasal Cannula 5 11/05/24 07:42 36.4 C L 60 28 H 112/69 93 Nasal Cannula 5 11/05/24 06:56 60 26 H 95 Nasal Cannula 5 Diagnostic Findings Diagnostics: 10/30 gallbladder 1. Distended gallbladder with layering gallstones and biliary sludge. There is no convincing sonographic evidence of acute cholecystitis. If there is strong clinical concern for acute cholecystitis this could be further assessed with a nuclear hepatobiliary scan. 2. There is a 1.3 cm calculus in the right renal pelvis with mild/moderate right-sided hydronephrosis. This likely causes at least intermittent obstruction. 3. There is dilatation of the IVC and hepatic veins suggesting cardiac dysfunction/congestive hepatopathy. Correlate clinically. 4. Additional findings as above. 10/30 CT A/P 1. Suboptimal evaluation of the abdomen and pelvis given lack of contrast, difficulty positioning and diffuse anasarca. 2. No bowel obstruction. Moderate rectal wall thickening, a nonspecific finding. 3. Mild gallbladder distention. This can be assessed with right upper quadrant ultrasound. 4. Left lower lobe opacity which may represent pneumonia or atelectasis. Right middle lobe groundglass opacities favor pneumonia or pulmonary edema. 5. 1.5 cm renal pelvis calculus. Mild right hydronephrosis. Mildly distended bladder which contains tiny calculi. 6. Cardiomegaly with small bilateral pleural effusions. Micro Data: 11/05 BCx x2: PEND 10/30 UCx: Roseann glabrata 10/30 BCx x2: Roseann glabrata in 1/2 sets (04/07 bottles) Antibiotic Summary: vancomycin (10/30 11/03) pip-tazo (10/30 present) doxycycline (11/04) caspofungin (11/02 present)
[2024-11-05] MEDS: ALBUT/IPRATROP 3MG/0.5MG NEB 3 ML VIAL NEB SCH (19:38)
[2024-11-06] VITALS: RESP 24
[2024-11-06 06:49] LABS: Hematocrit (blood only) 32.8 % (42.0-52.0); Hemoglobin 10.0 g/dl (14.0-18.0); Mean Corpuscular Hemoglobin 27.4 pg (25.0-34.0); Mean Corpuscular Volume 89.9 fL (80.0-100.0); Platelet Count 71 K/uL (130-400); RDW Standard Deviation 62.8 fL (36.4-46.3); Red Blood Count 3.65 M/uL (4.70-6.10); White Blood Count 10.73 K/ul (4.8-10.8)
[2024-11-06 07:10] LABS: Alanine Aminotransferase 30.0 U/L (7-52); Albumin Globulin Ratio 0.7 (0.9-2); Alkaline Phosphatase 65.0 U/L (34-104); Anion Gap 12.0 (3-11); Bilirubin,Total 4.1 mg/dl (0.2-1.0); Blood Urea Nitrogen 51.0 mg/dl (6-23); Calcium 8.6 mg/dl (8.6-10.3); Carbon Dioxide 19.0 mmol/L (21-32); Chloride 111.0 mmol/L (98-107); Creatinine Clr Calc Pharmacy 32.9 ml/min; Globulin 3.5 gm/dl (2.5-4.0); Glucose 173.0 mg/dl (70-99(Fasting)); Potassium 4.0 mmol/L (3.5-5.1); Sodium 142.0 mmol/L (136-145); Total Protein 6.1 gm/dl (6.0-8.3)
[2024-11-06 07:20] VITALS: BP 121/64; PULSE 60; TEMP 97.7; O2SAT 96
[2024-11-06] MEDS ORDERED: ALBUT/IPRATROP 3MG/0.5MG NEB 3 ML VIAL NEB PRN ×2 (08:00→12:17)
--- NOTE | 2024-11-06 12:25 | Hospitalist Progress Note ---
Date of Service November 06, 2024 Assessment & Plan (1) Sepsis: Plan: Blood cultures done on October 30 reveal Roseann in 1 of 4 bottles. Repeat blood cultures were drawn on November 05. Infectious disease consultation noted. All antibiotics and antifungals have been discontinued. PAPER SUPERVISOR now (2) Fungemia: Plan: Roseann isolated in 1 of 4 blood cultures obtained on October 30. He has been treated with caspofungin. He is now PAPER SUPERVISOR and all antibiotics and antifungals have been discontinued . Infectious disease consultation appreciated. (3) Roseann UTI: Plan: Roseann isolated in the urine and blood. He has been treated with caspofungin which has now been discontinued due to PAPER SUPERVISOR status. (4) Noncardiogenic pulmonary edema: Plan: Chest x-ray interpreted as CHF but this appears to be noncardiogenic pulmonary edema, possibly due to his fungemia. Cardiac echo done in February 2023 reveals normal ejection fraction with mild MR. He has no overt CHF at this time. No further x-rays or interventions at this time. PAPER SUPERVISOR status (5) Acute respiratory failure with hypoxia: Plan: No further titration of supplemental oxygen. PAPER SUPERVISOR status (6) Metabolic encephalopathy: Plan: Present on admission. Supportive care. Now PAPER SUPERVISOR status (7) Hyperbilirubinemia: Plan: Bilirubin level is mildly elevated although other liver enzymes are normal. Surgical consultation and GI consultation appreciated. Cholecystectomy is not indicated at this time. MRCP is not an option due to the presence of his pacemaker. No further labs at this time. Now PAPER SUPERVISOR status (8) CKD (chronic kidney disease), stage III: Plan: No further monitoring. PAPER SUPERVISOR status (9) Dementia: Plan: At baseline. Supportive care Plan Now PAPER SUPERVISOR status. The family has requested hospice evaluation for possible GIP placement. Case management has been notified. Appreciate palliative care assistance. Admission and Anticipated Discharge Date Admission Date: October 30, 2024 Subjective The patient exhibits no improvement. He is unresponsive. and daughter at the bedside. They now agree to comfort measures only status and have requested hospice evaluation for possible GIP placement here at the hospital. I agree. All medications have been discontinued along with all scheduled lab studies. Review of Systems 2 Review of Systems: The patient is unresponsive and cannot answer any questions regarding review of systems at this time Physical Exam 2 Physical Exam: General-unresponsive. No fever HEENT-head atraumatic and normocephalic, pupils equal and reactive to light, extraocular muscles intact Neck-no lymphadenopathy or thyromegaly, trachea midline Chest-scattered bilateral rhonchi. No audible wheezing Cardiac-regular rate and rhythm, normal S1 and S2 Abdomen-normal bowel sounds, no hepatosplenomegaly GUFoley catheter in place with concentrated urine Extremities-edematous extremities x 4 Skinecchymoses bilateral upper extremities noted Neuro-unresponsive. Cannot assess Psych-unresponsive. Cannot assess Results & Data Results & Data Vital Signs (Past 12 Hours) Vital Signs Temp Pulse Resp BP Pulse Ox O2 Del Method O2 Flow Rate 11/06/24 07:25 Nasal Cannula 11/06/24 07:17 36.5 C 60 24 121/64 96 Nasal Cannula 5 Laboratory Results 11/06/24 05:45 11/06/24 05:45 PG Care Time/CCT Total # of Minutes Spent Total Time Spent with Patient: Total time spent is greater than 50% in coordination of care (as documented) at patient's floor/unit and/or counseling patient: Coding Level of Care Code 28081 SUB INP/OBS CARE 3/50MIN Diagnoses Sepsis A41.9 Fungemia B49 Roseann UTI B37.49 Noncardiogenic pulmonary edema J81.1 Acute respiratory failure with hypoxia J96.01 Metabolic encephalopathy G93.41 Hyperbilirubinemia E80.6 CKD (chronic kidney disease), stage III N18.30 Dementia F03.90
--- NOTE | 2024-11-06 13:00 | Infectious Disease Progress Nt ---
Date of Service November 06, 2024 Assessment & Plan (1) Fungemia: (2) Roseann UTI: (3) Hyperbilirubinemia: Admission and Anticipated Discharge Date Admission Date: October 30, 2024 Subjective Subsequent visit was provided via telemedicine using two-way real-time interactive telecommunication between the patient and the telemedicine provider. For the duration of the visit, the provider was performing the assessment from a different facility than the patient. This includesuse of bluetooth stethoscope forauscultationperformed by the telepresenter that the telemedicine provider can hear if described in the physical exam. Mixing Machine Tender contact information: Please call [facility] Connect Call Center . (Phone Number For Physician Use Only) After establishing a telemedicine visit, patient was: Patient was verified with two unique identifiers, Patient/authorized rep acknowledged consent and understanding and Gave permission to continue telehealth session Time Spent with Patient: Subsequent => 35 min Rounded on patient today and spoke with patients and daughter. Discussed that it is possible that the candidemia could be from a urinary source (given Roseann also in the urine) and shared with them that the CT scan showed R renal pelvic stone with associated hydronephrosis. GI source (given elevated bilirubin and distended GB with sludging) and recent midline were also discussed previously as possible risk factors for Candidemia. Discussed that if we were to pursue full medical evaluation and treatment, that urology could be consulted to see whether a ureteral stent or perc neph tube could be offered. Regardless, could continue antifungals. The family wished to think about it, and planned on a family meeting with hospitalist Dr. Rosen after our visit. Subsequently, the family has agreed to pursue comfort care, thus antifungals have been stopped. Discussed with Dr. Rosen. The ID team remains available for if any questions arise. If questions, [facility] at [phone]. Results & Data Vital Signs (Past 12 Hours) Vital Signs Temp Pulse Resp BP Pulse Ox O2 Del Method O2 Flow Rate 11/06/24 07:25 Nasal Cannula 11/06/24 07:17 36.5 C 60 24 121/64 96 Nasal Cannula 5
[2024-11-06] MEDS ORDERED: HALOPERIDOL ORAL SOLN 2 MG/ML PO PRN (13:01)
[2024-11-06] MEDS ORDERED: ONDANSETRON 4 MG OD TAB SL PRN (13:01)
[2024-11-06] MEDS ORDERED: ONDANSETRON INJ 2 MG/ML 2 ML VIAL IV PRN (13:01)
[2024-11-06] MEDS ORDERED: HYOSCYAMINE SULFATE 0.125 MG TAB SL PRN (13:01)
[2024-11-06] MEDS ORDERED: LORazepam 0.5 MG TAB PO PRN (13:01)
[2024-11-06] MEDS: MoRPHine SULFATE 10 MG/0.5 ML UDP PO PRN (15:40)
[2024-11-06] MEDS: ATROPINE SULFATE 1% OP SOLN 5 ML BTL SL PRN (15:40)
[2024-11-07] MEDS: MoRPHine SULFATE 2 MG/ML CARP IV PRN (09:48)
[2024-11-07] MEDS: GLYCOPYRROLATE 0.2 MG/ML VIAL IV PRN (10:31)
--- NOTE | 2024-11-07 13:00 | Palliative Care Progress Note ---
Date of Service November 07, 2024 Assessment & Plan (1) Palliative care by specialist: Plan: Palliative care will continue to follow for ongoing EOL pt care and family support. (2) Comfort measures only status: Plan: Per family request, pt transitioned to CODE AND TEST CLERK on 11/06/24. (3) Need for comfort care: Plan: Comfort plan of care parameters: 1. Patient/Family want hospice added to their care. 2. NO rehab/PT/OT 3. Strictly End of Life care only 4. NO escalation of care: do not increase oxygen, escalate therapies, etc. The focus is on comfort through end of life, assure this is accomplished with aggressive symptom management (i.e. relief of dyspnea, pain, etc.) 5. NO return to hospital 6. NO labs, imaging, surgery 7. Oral intake as desired for comfort and pleasure: NO dietary restriction, Allow permissive aspiration, do not withhold food or drink for concern of aspiration and allow PO for pleasure and comfort. 8. If difficulty urinating/commode/bedpan, ok to place Woods catheter for comfort/hygiene/skin protection AND/OR Continue Woods catheter for comfort/hygiene/skin protection 9. NO: calorie counts, artificial nutrition, feeding tubes or IV fluids EOL Symptom manamgement: Pain/dyspnea/tachypnea morphine 2mg IVP PRN [id number] Consider titratable morphine drip if pt requires >3 PRN doses in under two consecutive hours. Nausea/vomitting zofran 4mg IVP q4h PRN Agitation ativan 0.5mg IVP q4h PRN Hyperactive delirium haldol 5mg IVP q6h PRN Secretions - if repositioning not effective robinul 0.4mg IV q4h PRN atropine SL 3 drops Q1h PRN Nursing care: Discontinue all medications not directed towards comfort. Detether pt from IV tubing, monitor cables, and check vitals once per shift. Please continue HFNC and titrate down as able for patient comfort. Use medications above PRN for dyspnea/tachypnea and do not increase oxygen once titrated down. Assess q1h for pain/dyspnea and treat accordingly. Plan as above Admission and Anticipated Discharge Date Admission Date: October 30, 2024 Subjective Assessed pt at bedside, he was transitioned to CODE AND TEST CLERK on 11/06/24. Pt is unresponsive to verbal and gentle tactile stimuli, did not attempt to awaken in concert with comfort directed care. He appears comfortable, pale skin, ext remities cool to touch. Respiratory effort increased, rate 42/min with mild accessory muscle use. No visitors at bedside. Request made for BSRN to utilize PRN mediscations for dyspnea to keep respiratory rate under 22/min. Review of Systems Review of Systems: Unobtainable due to cognitive status Physical Exam Constitutional: + ill appearing, + cachectic and + frail appearing; no acute distress ENMT: external ear and nose normal, oropharynx normal Neck: trachea midline, no thyromegaly Respiratory: + labored breathing, + uses accessory mu scles and + tachypneic Auscultation: + diminished lung sounds and + crackles Cardiovascular: Rate/Rhythm: regular rate and regular rhythm Gastrointestinal (Abdomen): normal bowel sounds, soft, nontender, no hepatosplenomegaly Neurologic: moves all extremities; + not awake pt not responsive to verbal stimuli Results & Data Vital Signs (Past 12 Hours) Vital Signs O2 Del Method O2 Flow Rate 11/07/24 07:20 Nasal Cannula 2 Laboratory Results No further labs or diagnostics in concert with comfort directed care. Diagnostic Findings No further labs or diagnostics in concert with comfort directed care. Medications Administered Current Inpatient Medications Acetaminophen (Acetaminophen 650 Mg Supp) 650 mg [place] Q4H PRN PRN Reason: Temp/Pain Stop: 11/29/24 14:59 Last Admin: 10/30/24 21:50 Dose: 650 mg Albuterol (Albut/Ipratrop 3mg/0.5mg Neb 3 Ml Vial) 3 ml NEB Q8H PRN; Protocol PRN Reason: Shortness Of Breath Or Wheezing Stop: 12/06/24 07:59 Atropine Sulfate (Atropine Sulfate 1% Op Soln 5 Ml Btl) 4 drops SL Q1H PRN PRN Reason: Secretions or pulm congestion Stop: 12/06/24 13:00 Last Admin: 11/06/24 15:40 Dose: 4 drops Glycopyrrolate (Glycopyrrolate 0.2 Mg/Ml Vial) 0.4 mg IV Q4H PRN PRN Reason: Rattling Secretions or Pulm Congestion Stop: 12/06/24 13:00 Last Admin: 11/07/24 10:31 Dose: 0.4 mg Haloperidol (Haloperidol Oral Soln 2 Mg/Ml) 0.5 mg PO Q4H PRN PRN Reason: Anxiety/Agitation Stop: 12/06/24 13:00 Hyoscyamine (Hyoscyamine Sulfate 0.125 Mg Tab) 0.125 mg SL Q4H PRN PRN Reason: Secretions or Pulm Congestion Stop: 12/06/24 13:00 Lorazepam (Lorazepam 2 Mg/1 Ml Vial) 0.5 mg IV Q4H PRN PRN Reason: Anxiety/Agitation Stop: 12/06/24 13:00 Lorazepam (Lorazepam 0.5 Mg Tab) 0.5 mg PO Q4H PRN PRN Reason: Anxiety/Agitation Stop: 12/06/24 13:00 Morphine Sulfate (Morphine Sulfate 10 Mg/0.5 Ml Udp) 5 mg PO Q2H PRN PRN Reason: Pain or Respiratory Distress Stop: 11/20/24 13:00 Last Admin: 11/07/24 09:14 Dose: 5 mg Morphine Sulfate (Morphine Sulfate 2 Mg/Ml Carp) 2 mg IV Q15M PRN PRN Reason: Pain or Respiratory Distress Stop: 11/20/24 13:00 Last Admin: 11/07/24 11:28 Dose: 2 mg Ondansetron HCl (Ondansetron Inj 2 Mg/Ml 2 Ml Vial) 4 mg IV Q4H PRN PRN Reason: Nausea &/or Vomiting Stop: 12/06/24 13:00 Ondansetron HCl (Ondansetron 4 Mg Od Tab) 4 mg SL Q4H PRN PRN Reason: Nausea &/or Vomiting Stop: 12/06/24 13:00 PG Care Time/CCT Total # of Minutes Spent Total Time Spent with Patient: Total time spent is greater than 50% in coordination of care (as documented) at patient's floor/unit and/or counseling patient: [place] [address] SUB INP/OBS CARE 2/35MIN Patient Type Established History Problem Focused Exam Problem Focused Medical Decision Making Moderate Complexity Diagnoses Palliative care by specialist Z51.5 Comfort measures only status Z51.5 Need for comfort care
--- NOTE | 2024-11-07 14:27 | Hospitalist Progress Note ---
Date of Service November 07, 2024 Assessment & Plan (1) Sepsis: Plan: Blood cultures done on October 30 reveal Roseann in 1 of 4 bottles. Repeat blood cultures were drawn on November 05. Infectious disease consultation noted. All antibiotics and antifungals have been discontinued. METAL MINER now (2) Fungemia: Plan: Roseann isolated in 1 of 4 blood cultures obtained on October 30. He has been treated with caspofungin. He is now METAL MINER and all antibiotics and antifungals have been discontinued . Infectious disease consultation appreciated. (3) Roseann UTI: Plan: Roseann isolated in the urine and blood. He has been treated with caspofungin which has now been discontinued due to METAL MINER status. (4) Noncardiogenic pulmonary edema: Plan: Chest x-ray interpreted as CHF but this appears to be noncardiogenic pulmonary edema, possibly due to his fungemia. Cardiac echo done in February 2023 reveals normal ejection fraction with mild MR. He has no overt CHF at this time. No further x-rays or interventions at this time. He has developed tachypnea and is receiving as needed morphine. METAL MINER status (5) Acute respiratory failure with hypoxia: Plan: No further titration of supplemental oxygen. METAL MINER status (6) Metabolic encephalopathy: Plan: Present on admission. Supportive care. Now METAL MINER status (7) Hyperbilirubinemia: Plan: Bilirubin level is mildly elevated although other liver enzymes are normal. Surgical consultation and GI consultation appreciated. Cholecystectomy is not indicated at this time. MRCP is not an option due to the presence of his pacemaker. No further labs at this time. Now METAL MINER status (8) CKD (chronic kidney disease), stage III: Plan: No further monitoring. METAL MINER status (9) Dementia: Plan: At baseline. Supportive care Plan Continue METAL MINER status. His passing appears imminent. Will not attempt transfer to [facility] at this time. Case management has been notified. Appreciate palliative care assistance. Admission and Anticipated Discharge Date Admission Date: October 30, 2024 Subjective The patient remains unresponsive. He has become more tachypneic and is being treated with morphine. Appreciate palliative care input. Family is at the bedside. Review of Systems 2 Review of Systems: The patient is unresponsive and cannot answer any questions regarding review of systems at this time Physical Exam 2 Physical Exam: General-unresponsive. No fever HEENT-head atraumatic and normocephalic, pupils equal and reactive to light, extraocular muscles intact Neck-no lymphadenopathy or thyromegaly, trachea midline Chest-scattered bilateral rhonchi. No audible wheezing . Tachypneic Cardiac-regular rate and rhythm, normal S1 and S2 Abdomen-normal bowel sounds, no hepatosplenomegaly GUFoley catheter in place with concentrated urine Extremities-edematous extremities x 4 Skinecchymoses bilateral upper extremities noted Neuro-unresponsive. Cannot assess Psych-unresponsive. Cannot assess Results & Data Results & Data Vital Signs (Past 12 Hours) Vital Signs O2 Del Method O2 Flow Rate 11/07/24 07:20 Nasal Cannula 2 Laboratory Results 11/06/24 05:45 11/06/24 05:45 PG Care Time/CCT Total # of Minutes Spent Total Time Spent with Patient: Total time spent is greater than 50% in coordination of care (as documented) at patient's floor/unit and/or counseling patient: Coding Level of Care Code 61016 SUB INP/OBS CARE 2/35MIN Diagnoses Sepsis A41.9 Fungemia B49 Roseann UTI B37.49 Noncardiogenic pulmonary edema J81.1 Acute respiratory failure with hypoxia J96.01 Metabolic encephalopathy G93.41 Hyperbilirubinemia E80.6 CKD (chronic kidney disease), stage III N18.30 Dementia F03.90
--- NOTE | 2024-11-08 09:04 | Palliative Care Progress Note ---
Date of Service November 08, 2024 Assessment & Plan (1) Palliative care by specialist: Plan: Palliative care will continue to follow for ongoing EOL pt care and family support. Spouse and daughter at bedside, noted shallow respiratory overnight and change in temperature of BLE. Anticipatory guidance offered. Discussed changes pt may move through in the dying process including but not limited to sleeping more, disorientation when awake, restlessness, diminished senses/inability to respond to stimulus although ability to be aware of them remains intact longer, and changes in body temperatures, skin changes/mottling/cyanosis, respiratory pattern changes, and oral secretions. Family verbalized understanding. The goal is to assure a peaceful . (2) Comfort measures only status: Plan: Per family request, pt transitioned to EXIT BOOTH AGENT on 11/06/24. (3) Need for comfort care: Plan: Comfort plan of care parameters: 1. Patient/Family want hospice added to their care. 2. NO rehab/PT/OT 3. Strictly End of Life care only 4. NO escalation of care: do not increase oxygen, escalate therapies, etc. The focus is on comfort through end of life, assure this is accomplished with aggressive symptom management (i.e. relief of dyspnea, pain, etc.) 5. NO return to hospital 6. NO labs, imaging, surgery 7. Oral intake as desired for comfort and pleasure: NO dietary restriction, Allow permissive aspiration, do not withhold food or drink for concern of aspiration and allow PO for pleasure and comfort. 8. If difficulty urinating/commode/bedpan, ok to place Woods catheter for comfort/hygiene/skin protection AND/OR Continue Woods catheter for comfort/hygiene/skin protection 9. NO: calorie counts, artificial nutrition, feeding tubes or IV fluids EOL Symptom manamgement: Pain/dyspnea/tachypnea morphine 2mg IVP PRN [id number] Consider titratable morphine drip if pt requires >3 PRN doses in under two consecutive hours. Nausea/vomitting zofran 4mg IVP q4h PRN Agitation ativan 0.5mg IVP q4h PRN Hyperactive delirium haldol 5mg IVP q6h PRN Secretions - if repositioning not effective robinul 0.4mg IV q4h PRN atropine SL 3 drops Q1h PRN Nursing care: Discontinue all medications not directed towards comfort. Detether pt from IV tubing, monitor cables, and check vitals once per shift. Please continue HFNC and titrate down as able for patient comfort. Use medications above PRN for dyspnea/tachypnea and do not increase oxygen once titrated down. Assess q1h for pain/dyspnea and treat accordingly. Plan as above; Pt has had minimal use of PRNs for comfort overnight, but appears to be transitioning to active dying with related changes in circulation and respiratory patterns. Admission and Anticipated Discharge Date Admission Date: October 30, 2024 Subjective Assessed pt at bedside, he was transitioned to EXIT BOOTH AGENT on 11/06/24. Pt is un responsive to verbal and gentle tactile stimuli, did not attempt to awaken in concert with comfort directed care. He appears comfortable, skin pale, extremities cool to touch. Respirations nonlabored but shallow, rate 20/min with rare periods of apnea. and daughter at bedside. Review of Systems Review of Systems: Unobtainable due to cognitive status Physical Exam Constitutional: + ill appearing, + cachectic and + frail appearing; no acute distress ENMT: external ear and nose normal, oropharynx normal Neck: trachea midline, no thyromegaly Respiratory: + labored breathing, + uses accessory mu scles and + tachypneic Auscultation: + diminished lung sounds and + crackles Cardiovascular: Rate/Rhythm: regular rate and regular rhythm Gastrointestinal (Abdomen): normal bowel sounds, soft, nontender, no hepatosplenomegaly Neurologic: moves all extremities; + not awake pt not responsive to verbal stimuli Results & Data Vital Signs (Past 12 Hours) Vital Signs O2 Del Method O2 Flow Rate 11/08/24 08:22 Nasal Cannula 2 Laboratory Results No further labs or diagnostics in concert with comfort directed care. Diagnostic Findings No further labs or diagnostics in concert with comfort directed care. Medications Administered Current Inpatient Medications Acetaminophen (Acetaminophen 650 Mg Supp) 650 mg [place] Q4H PRN PRN Reason: Temp/Pain Stop: 11/29/24 14:59 Last Admin: 10/30/24 21:50 Dose: 650 mg Albuterol (Albut/Ipratrop 3mg/0.5mg Neb 3 Ml Vial) 3 ml NEB Q8H PRN; Protocol PRN Reason: Shortness Of Breath Or Wheezing Stop: 12/06/24 07:59 Atropine Sulfate (Atropine Sulfate 1% Op Soln 5 Ml Btl) 4 drops SL Q1H PRN PRN Reason: Secretions or pulm congestion Stop: 12/06/24 13:00 Last Admin: 11/06/24 15:40 Dose: 4 drops Glycopyrrolate (Glycopyrrolate 0.2 Mg/Ml Vial) 0.4 mg IV Q4H PRN PRN Reason: Rattling Secretions or Pulm Congestion Stop: 12/06/24 13:00 Last Admin: 11/07/24 10:31 Dose: 0.4 mg Haloperidol (Haloperidol Oral Soln 2 Mg/Ml) 0.5 mg PO Q4H PRN PRN Reason: Anxiety/Agitation Stop: 12/06/24 13:00 Hyoscyamine (Hyoscyamine Sulfate 0.125 Mg Tab) 0.125 mg SL Q4H PRN PRN Reason: Secretions or Pulm Congestion Stop: 12/06/24 13:00 Lorazepam (Lorazepam 2 Mg/1 Ml Vial) 0.5 mg IV Q4H PRN PRN Reason: Anxiety/Agitation Stop: 12/06/24 13:00 Lorazepam (Lorazepam 0.5 Mg Tab) 0.5 mg PO Q4H PRN PRN Reason: Anxiety/Agitation Stop: 12/06/24 13:00 Morphine Sulfate (Morphine Sulfate 10 Mg/0.5 Ml Udp) 5 mg PO Q2H PRN PRN Reason: Pain or Respiratory Distress Stop: 11/20/24 13:00 Last Admin: 11/07/24 09:14 Dose: 5 mg Morphine Sulfate (Morphine Sulfate 2 Mg/Ml Carp) 2 mg IV Q15M PRN PRN Reason: Pain or Respiratory Distress Stop: 11/20/24 13:00 Last Admin: 11/07/24 14:31 Dose: 2 mg Ondansetron HCl (Ondansetron Inj 2 Mg/Ml 2 Ml Vial) 4 mg IV Q4H PRN PRN Reason: Nausea &/or Vomiting Stop: 12/06/24 13:00 Ondansetron HCl (Ondansetron 4 Mg Od Tab) 4 mg SL Q4H PRN PRN Reason: Nausea &/or Vomiting Stop: 12/06/24 13:00 PG Care Time/CCT Total # of Minutes Spent Total Time Spent with Patient: Total time spent is greater than 50% in coordination of care (as documented) at patient's floor/unit and/or counseling patient: Coding [place] [address] SUB INP/OBS CARE 2/35MIN Patient Type Established History Problem Focused Exam Problem Focused Medical Decision Making Moderate Complexity Diagnoses Palliative care by specialist Z51.5 Comfort measures only status Z51.5 Need for comfort care
--- NOTE | 2024-11-08 11:42 | Death Pronouncement Note ---
Date of Service November 08, 2024 Pronouncement Note Admission Date October 30, 2024 Date and Time of Date of : 11/08/24 Time of : 11:24 Preliminary Cause of (1) Acute respiratory failure with hypoxia: Additional Comments: Acute on chronic respiratory failure (2) Noncardiogenic pulmonary edema: (3) Fungemia: (4) Roseann UTI: Summary Nursing staff notified me that the patient's sister Breas at 11:24 AM. He peacefully with family at the bedside. I saw the patient and examined him and he was without breath sounds, no respiratory activity, no heart tones, pupils are fixed and dilated. He was pronounced at 11:33 AM, November 08, 2024 Additional Data Attending physician: Mainor Rosen MD Coding Level of Care Code 06380 IN/OBS DISCH 30 MIN/LESS Diagnoses Acute respiratory failure with hypoxia J96.01 Noncardiogenic pulmonary edema J81.1 Fungemia B49 Roseann UTI B37.49
--- NOTE | 2024-11-08 11:44 | Discharge Summary ---
Discharge Summary Date of Service November 08, 2024 Principal Dx & Hospital Course #1 = Principal Diagnosis (1) Acute respiratory failure with hypoxia: No further titration of supplemental oxygen. SOA INTEGRATION DEVELOPER status (2) Noncardiogenic pulmonary edema: Chest x-ray interpreted as CHF but this appears to be noncardiogenic pulmonary edema, possibly due to his fungemia. Cardiac echo done in February 2023 reveals normal ejection fraction with mild MR. He has no overt CHF at this time. No further x-rays or interventions at this time. He has developed tachypnea and is receiving as needed morphine. SOA INTEGRATION DEVELOPER status (3) Fungemia: Roseann isolated in 1 of 4 blood cultures obtained on October 30. He has been treated with caspofungin. He is now SOA INTEGRATION DEVELOPER and all antibiotics and antifungals have been discontinued . Infectious disease consultation appreciated. (4) Roseann UTI: Roseann isolated in the urine and blood. He has been treated with caspofungin which has now been discontinued due to SOA INTEGRATION DEVELOPER status. Plan The patient peacefully with family at bedside today, November 08, at 11:24 AM Admission HPI Per Admitting Provider Manuel Lloyd is an 89yo male with history of CAD s/p CABG in 2001, HTN, HLP and Dementia presenting from [facility] with report of worsening lethargy. Patient's reports that 10 days ago, patient was having nausea and vomiting. This slowly progressed per the course of these 10 days with patient having more lethargy. He was eating less, showing signs of pain in right upper quadrant which began today. He would grimace with some postural changes or if touched in that area. Though non verbal patient's family state that he is enjoying life. Discharge Exam Not applicable Discharge Plan Discharge Items Patient Disposition: Reason For Visit: HYPERNATREMIA/ ELEVATED BILIRUBIN Condition on Discharge: Fair Follow-up/Referrals: Zakia Lundberg [facility] [Primary Care Provider] - Medications and DC Order Prescriptions: No Action metoprolol tartrate 25 mg tablet 12.5 mg PO DAILY Qty: 90 3RF acetaminophen [Tylenol] 325 mg Tablet 650 mg PO Q4 MDD 3 GRAMS APAP/24 HOURS PRN (Reason: Fever Or Pain) doxazosin 1 mg tablet 1 mg PO HS levothyroxine 50 mcg tablet 50 mcg PO QAM nitroglycerin 0.4 mg tablet, sublingual 0.4 mg sublingual Q24H PRN (Reason: Chest Pain) aspirin 81 mg Tablet,Chewable 81 mg PO QAM docusate sodium 100 mg Tablet 100 mg PO Q24H PRN (Reason: Constipation) Rx Instructions: Give on day 2 of no BM in the AM acetaminophen 650 mg Suppository 650 mg MD Q4H MDD 3gm/24hr PRN (Reason: Temp/Pain) Eucerin Lotion 1 applic TOPICAL BID escitalopram oxalate 20 mg tablet 20 mg PO DAILY Desitin 40 % Paste 1 applic TOPICAL DAILY Rx Instructions: May also use as needed throughout the day Saline Mist 0.65 % aerosol,spray 2 spray NA Q2H PRN (Reason: DRY NOSE/EPISTAXIS) acetaminophen 650 mg Suppository 650 mg MD Q8H PRN (Reason: Discomfort) Qty: 0 bisacodyl [Dulcolax (bisacodyl)] 10 mg Suppository 10 mg MD DAILY PRN (Reason: Constipation) Rx Instructions: give on 4th day in the morning if no bowel movement polyethylene glycol 3350 [Miralax] 17 gram Powder In Packet 17 g PO DAILY PRN (Reason: Constipation) Rx Instructions: Give on 3rd day of no BM acetaminophen 160 mg/5 mL Elixir 640 mg PO Q6H MDD 3gm/24hr PRN (Reason: pain or fever) amoxicillin-pot clavulanate 400-57 mg/5 mL suspension for reconstitution 10 ml PO BID Rx Instructions: Start Date 10/28/24 - End Date 11/02/24 Admission Data Admit Date/Time: 10/30/24 13:34 Attending Provider: Mainor Rosen Admit Provider: Jax Barrett Primary Care Provider: Zakia Lundberg [facility] Other Providers: Jax Barrett; Zakia Lundberg [facility]; [facility] Stay Data Consultations 10/30/24 13:57 Consult Gastroenterology Routine 10/30/24 14:28 Consult General Surgery Routine 10/30/24 14:35 ED Decision to Admit Stat 11/04/24 10:13 Consult Palliative Care Routine Diagnostic Imagining Performed 10/30/24 13:02 CT abd pelvis wo con Stat 10/30/24 13:04 US gallbladder Stat Total Time Total Time Spent Total Time Spent (In Minutes): 25 minutes Coding Level of Care Code 22132 IN/OBS DISCH 30 MIN/LESS Diagnoses Acute respiratory failure with hypoxia J96.01 Noncardiogenic pulmonary edema J81.1 Fungemia B49 Roseann UTI B37.49
== END 2024-11-08 17:32 | disposition expired | DRG 871 ==
LOC: ED 11:05 → 3N 13:34 → SUATTDRO 13:34 → 3N 17:55